=== PATIENT | female | born 1950 | race Caucasian/White ===

== ENCOUNTER 2017-02-15 10:45 | Inpatient (IN) | payer MEDICARE, OTHER ==
[2017-02-15] MEDS ORDERED: NALOXONE 0.4 MG/ML 1 ML VIAL IV STA (10:49)
[2017-02-15] MEDS ORDERED: SODIUM CHLORIDE 0.9% 1,000 ML IV ONE ×2 (10:49)
[2017-02-15 10:54] LABS: Glucose,Whole Blood 112 mg/dL (75-99)
[2017-02-15 11:08] LABS: Basophils % (A) 1 %; CH 31.7; CHCM 33.1; Eosinophils # (A) 0.1 k/uL (0-0.7); Eosinophils % (A) 1 %; HDW 2.38; HGB 15.5 gm/dL (11.4-16.0); Luc # (Auto) 0.06; Luc % (Auto) 1; Lymphocytes % (A) 13 %; MCH 32.3 pg (25.0-35.0); MCHC 33.7 g/dL (31.0-37.0); Mean Platelet Volume 9.1; Monocytes # (A) 0.3 k/uL (0-1.0); Monocytes % (A) 3 %; Neutrophils # (A) 6.2 k/uL (1.3-7.7); Neutrophils % (A) 82 %; RBC 4.79 m/uL (3.80-5.40); RDW 14.1 % (11.5-15.5); WBC 7.6 k/uL (3.8-10.6); WBC (Perox) 7.38
[2017-02-15 11:13] LABS: INR 1.1 (<1.2); Partial Thromboplastin Time 22.8 sec (22.0-30.0); Prothrombin Time 11.4 sec (9.0-12.0)
[2017-02-15 11:15] LABS: ALT 21 U/L (9-52); AST 15 U/L (14-36); Acetaminophen <10.0 ug/mL; Alcohol <10 mg/dL; Alkaline Phosphatase 76 U/L (38-126); Anion Gap 10 mmol/L; Blood Urea Nitrogen 17 mg/dL (7-17); Calcium 8.8 mg/dL (8.4-10.2); Carbon Dioxide 23 mmol/L (22-30); Chloride 107 mmol/L (98-107); Glucose 120 mg/dL (74-99); Magnesium 1.7 mg/dL (1.6-2.3); Non-African American GFR(MDRD) >60 (>60 ml/min/1.73 sqM); Phosphorous 3.5 mg/dL (2.5-4.5); Potassium 4.5 mmol/L (3.5-5.1); Salicylate <1.0 mg/dL; Sodium 140 mmol/L (137-145); Total Bilirubin 0.6 mg/dL (0.2-1.3); Total Protein 6.8 g/dL (6.3-8.2); VBG PH 7.35 (7.31-7.41)
[2017-02-15 11:25] LABS: Appearance,Urine Cloudy (Clear); Bacteria,Urine Occasional /hpf; Bilirubin,Urine Negative (Negative); Glucose,Urine (UA) Negative (Negative); Ketones,Urine 1+ (Negative); Leukocyte Esterase,Urine Large (Negative); Mucus,Urine Rare /hpf; Nitrite,Urine Positive (Negative); Particle Count 104466; Protein,Urine 1+ (Negative); RBC,Urine 2 /hpf (0-5); Specific Gravity,Urine 1.012 (1.001-1.035); UA Billing (MACRO vs. MICRO) MICRO; Urobilinogen,Urine <2.0 mg/dL (<2.0); WBC,Urine 111 /hpf (0-5)
--- NOTE | 2017-02-15 11:35 | CT ---
EXAMINATION TYPE: CT brain wo con DATE OF EXAM: 02/15/2017 COMPARISON: NONE HISTORY: Altered mental status CT DLP: 1145.1 mGycm Automated exposure control for dose reduction was used. FINDINGS: There are generalized changes of sulcal prominence and ventriculomegaly, compatible with mild atrophi c change. There is diffuse periventricular white matter lucency, compatible with chronic ischemic faye nge. There is a diffuse area lucency overlying the posterior parietal region on the left. I believe t his represents artifact. I could not exclude an evolving stroke. There is no mass effect, midline elba ft or intracranial blood identified. There is opacification of the right orbit. There is considerable mucoperiosteal thickening involving the nasal cavity and ethmoid sinuses. There is asymmetry in the parapharyngeal soft tissues with prominence on the left. The mastoid air cells a re clear. IMPRESSION: 1. LUCENCY OVER THE LEFT PARIETAL REGION IS BELIEVED TO REPRESENT ARTIFACT. I COULD NOT EXCLUDE A STR BATSHEVA IN PROGRESS. 2. CONSIDERABLE SOFT TISSUE DEBRIS WITHIN THE NASAL CAVITY AND ETHMOID SINUSES. THERE IS ASYMMETRY IN THE PARAPHARYNGEAL SOFT TISSUES ON THE LEFT. DIRECT VISUALIZATION WOULD BE SUGGESTED.
[2017-02-15] MEDS ORDERED: cefTRIAXone 2,000 MG in SODIUM CHLORIDE 0.9% 100 ML IVPB STA (11:42)
[2017-02-15] MEDS ORDERED: RX INFO: IV CONTRAST WAS GIVEN 1 EACH MISC MISCELLANE PRN (11:44)
[2017-02-15] MEDS ORDERED: hydrALAZINE HCL 20 MG/ML 1 ML VIAL IVP STA ×2 (11:44→14:20)
[2017-02-15] MEDS ORDERED: SODIUM CHLORIDE 0.9% 1,000 ML IV STA (11:44)
[2017-02-15 11:54] LABS: Creatine Kinase MB 0.6 ng/mL (0.0-2.4)
[2017-02-15] MEDS ORDERED: ENALAPRILAT 1.25 MG/ML 1 ML VIAL IVP STA (12:17)
[2017-02-15 12:18] LABS: Troponin I 0.065 ng/mL (0.000-0.034)
[2017-02-15] MEDS ORDERED: MORPHINE SULFATE 4 MG/ML SYRINGE IVP STA (12:36)
--- NOTE | 2017-02-15 12:56 | ED ---
General Adult HPI - General Chief complaint: Altered Mental Status Stated complaint: Bleeding, unresponsive Time Seen by Provider: 02/15/17 10:49 Source: EMS, RN notes reviewed, old records reviewed Mode of arrival: EMS Limitations: altered mental status - History of Present Illness Initial comments: This is a 58-year-old female to the ER for altered mental status. Patient was found by boyfriend today being unresponsive, EMS was called to patient's house, patient is unable to give history secondary to critical condition, history is obtained from EMS and the patient's chart. Patient and his boyfriend deny any drug or alcohol abuse. No known trauma history. The patient has been last seen yesterday before she went to bed. She is minimally arousable throughout the night and became unresponsive this morning - Related Data Home Medications Medication Instructions Recorded Confirmed Lisinopril 40 mg PO DAILY 06/06/14 02/15/17 HYDROcodone/APAP 7.5-325MG [[place] 1 tab PO Q6H PRN 04/27/15 02/15/17 7.5-325] Insulin Aspart Protam & Aspart 40 unit SQ BID 02/15/17 02/15/17 [Novolog Mix 70-30 Flexpen Syrn] Allergies Allergy/AdvReac Type Severity Reaction Status Date / Time No Known Allergies Allergy Verified 02/15/17 12:18 Review of Systems ROS Statement: Those systems with pertinent positive or pertinent negative responses have been documented in the HPI. ROS Other: All systems not noted in ROS Statement are negative. Past Medical History Past Medical History: Diabetes Mellitus, Deep Vein Thrombosis (DVT), Eye Disorder, Hyperlipidemia, Hypertension Additional Past Medical History / Comment(s): NT, EDEMA PAPO FEET. DIABETIC RETINOPATHY, osteomyelitis of the right calcaneus, Melendez grade 3 diabetic ulcer to the right heel, bilateral buttocks decubitus ulcers. History of Any Multi-Drug Resistant Organisms: None Reported Past Surgical History: Appendectomy, Back Surgery, Section, Cholecystectomy, Hernia Repair, Tubal Ligation Additional Past Surgical History / Comment(s): RT EYE SURG for diabetic retinopathy, lumbar fusion, PAPO FOOT SPUR SURG. Picc insertion. Past Anesthesia/Blood Transfusion Reactions: No Reported Reaction Past Psychological History: No Psychological Hx Reported Smoking Status: Former smoker Past Alcohol Use History: None Reported Past Drug Use History: None Reported - Past Family History Mother Family Medical History: Cancer, Diabetes Mellitus Additional Family Medical History / Comment(s): mother is . Father History Unknown: Yes Daughter(s) Family Medical History: Diabetes Mellitus General Exam Limitations: altered mental status General appearance: alert, obtunded, in distress Head exam: Present: atraumatic, normocephalic, normal inspection Eye exam: Present: normal appearance, PERRL, EOMI, other (Right eye dilated sluggishly reactive, left eye 4 mm). Absent: scleral icterus, conjunctival injection, periorbital swelling ENT exam: Present: normal exam, mucous membranes moist Neck exam: Present: normal inspection. Absent: tenderness, meningismus, lymphadenopathy Respiratory exam: Present: normal lung sounds bilaterally. Absent: respiratory distress, wheezes, rales, rhonchi, stridor Cardiovascular Exam: Present: regular rate, normal rhythm, normal heart sounds. Absent: systolic murmur, diastolic murmur, rubs, gallop, clicks GI/Abdominal exam: Present: soft, normal bowel sounds. Absent: distended, tenderness, guarding, rebound, rigid Extremities exam: Present: normal inspection, full ROM, normal capillary refill. Absent: tenderness, pedal edema, joint swelling, calf tenderness Back exam: Present: normal inspection Neurological exam: Present: alert, oriented X3, CN II-XII intact Psychiatric exam: Present: normal affect, normal mood Skin exam: Present: warm, dry, intact, normal color. Absent: rash Course Vital Signs 02/15/17 02/15/17 02/15/17 10:49 11:04 11:40 Temperature 97.9 F Pulse Rate 67 66 58 L Respiratory 14 16 15 Rate Blood Pressure 191/84 207/85 202/79 O2 Sat by Pulse 80 L 97 Oximetry 02/15/17 02/15/17 02/15/17 11:50 11:51 12:11 Temperature 97.9 F Pulse Rate 58 L 61 Respiratory 20 18 20 Rate Blood Pressure 204/84 212/78 O2 Sat by Pulse 97 100 Oximetry 02/15/17 02/15/17 02/15/17 12:31 12:59 13:31 Temperature 99.0 F 99.0 F Pulse Rate 85 64 75 Respiratory 26 H 20 18 Rate Blood Pressure 156/82 185/78 198/79 O2 Sat by Pulse 97 98 99 Oximetry 02/15/17 13:57 Temperature Pulse Rate 67 Respiratory 20 Rate Blood Pressure 198/76 O2 Sat by Pulse 98 Oximetry - Reevaluation(s) Reevaluation #1: 02/15/17 13:06 Blood pressure is difficult to control, 2 different IV medications medications used Reevaluation #2: 02/15/17 13:06 Patient has no response to Narcan Sugar normal Drug screen positive for opiates Reevaluation #3: 02/15/17 14:22 Patient initially hypoxic on the CT a chest is negative for PE Reevaluation #4: 02/15/17 14:22 Spoke with family at length greater than 50 minutes regarding medical condition , clinical condition and grave prognosis, questions answered EKG Findings - EKG Comments: EKG Findings:: EKG shows normal sinus rhythm at 62, PA 150, QRS 80, QTC 472 Medical Decision Making - Medical Decision Making 68. ER for evaluation of unresponsiveness altered mental status, patient found to have urinary tract infection likely CVA, will obtain MRI for validation. Patient will be admitted for neurological evaluation as well as monitoring of hemodynamic status, neurological improvement. - Lab Data Result diagrams: 02/15/17 10:50 02/15/17 10:50 Lab Results 02/15/17 02/15/17 02/15/17 Range/Units 10:50 10:50 10:50 WBC (3.8-10.6) k/uL RBC (3.80-5.40) m/uL Hgb (11.4-16.0) gm/dL Hct (34.0-46.0) % MCV (80.0-100.0) fL MCH (25.0-35.0) pg MCHC (31.0-37.0) g/dL RDW (11.5-15.5) % Plt Count (150-450) k/uL Neutrophils % % Lymphocytes % % Monocytes % % Eosinophils % % Basophils % % Neutrophils # (1.3-7.7) k/uL Lymphocytes # (1.0-4.8) k/uL Monocytes # (0-1.0) k/uL Eosinophils # (0-0.7) k/uL Basophils # (0-0.2) k/uL PT (9.0-12.0) sec INR (<1.2) APTT (22.0-30.0) sec VBG pH (7.31-7.41) VBG pCO2 (37-51) mmHg VBG HCO3 (24-28) mmol/L Sodium 140 (137-145) mmol/L Potassium 4.5 (3.5-5.1) mmol/L Chloride 107 (98-107) mmol/L Carbon Dioxide 23 (22-30) mmol/L Anion Gap 10 mmol/L BUN 17 (7-17) mg/dL Creatinine 0.78 (0.52-1.04) mg/dL Est GFR (MDRD) Af Amer >60 (>60 ml/min/1.73 sqM) Est GFR (MDRD) Non-Af >60 (>60 ml/min/1.73 sqM) Glucose 120 H (74-99) mg/dL POC Glucose (mg/dL) (75-99) mg/dL POC Glu Sail Cutter ID Calcium 8.8 (8.4-10.2) mg/dL Phosphorus 3.5 (2.5-4.5) mg/dL Magnesium 1.7 (1.6-2.3) mg/dL Total Bilirubin 0.6 (0.2-1.3) mg/dL AST 15 (14-36) U/L ALT 21 (9-52) U/L Alkaline Phosphatase 76 (38-126) U/L Ammonia <9 (<30) umol/L Total Creatine Kinase 49 (30-135) U/L CK-MB (CK-2) 0.6 (0.0-2.4) ng/mL CK-MB (CK-2) Rel Index 1.2 Troponin I 0.065 H* (0.000-0.034) ng/mL Total Protein 6.8 (6.3-8.2) g/dL Albumin 3.7 (3.5-5.0) g/dL Urine Color Urine Appearance (Clear) Urine pH (5.0-8.0) Ur Specific [place] (1.001-1.035) Urine Protein (Negative) Urine Glucose (UA) (Negative) Urine Ketones (Negative) Urine Blood (Negative) Urine Nitrite (Negative) Urine Bilirubin (Negative) Urine Urobilinogen (<2.0) mg/dL Ur Leukocyte Esterase (Negative) Urine RBC (0-5) /hpf Urine WBC (0-5) /hpf Urine Bacteria (None) /hpf Urine Mucus (None) /hpf Salicylates <1.0 mg/dL Urine Opiates Screen (NotDetected) Ur Oxycodone Screen (NotDetected) Urine Methadone Screen (NotDetected) Ur Propoxyphene Screen (NotDetected) Acetaminophen <10.0 ug/mL Ur Barbiturates Screen (NotDetected) U Tricyclic Antidepress (NotDetected) Ur Phencyclidine Scrn (NotDetected) Ur Amphetamines Screen (NotDetected) U Methamphetamines Scrn (NotDetected) U Benzodiazepines Scrn (NotDetected) Urine Cocaine Screen (NotDetected) U Marijuana (THC) Screen (NotDetected) Serum Alcohol <10 mg/dL 02/15/17 02/15/17 02/15/17 Range/Units 10:50 10:50 10:50 WBC 7.6 (3.8-10.6) k/uL RBC 4.79 (3.80-5.40) m/uL Hgb 15.5 (11.4-16.0) gm/dL Hct 46.0 (34.0-46.0) % MCV 96.0 (80.0-100.0) fL MCH 32.3 (25.0-35.0) pg MCHC 33.7 (31.0-37.0) g/dL RDW 14.1 (11.5-15.5) % Plt Count 128 L (150-450) k/uL Neutrophils % 82 % Lymphocytes % 13 % Monocytes % 3 % Eosinophils % 1 % Basophils % 1 % Neutrophils # 6.2 (1.3-7.7) k/uL Lymphocytes # 1.0 (1.0-4.8) k/uL Monocytes # 0.3 (0-1.0) k/uL Eosinophils # 0.1 (0-0.7) k/uL Basophils # 0.0 (0-0.2) k/uL PT 11.4 (9.0-12.0) sec INR 1.1 (<1.2) APTT 22.8 (22.0-30.0) sec VBG pH 7.35 (7.31-7.41) VBG pCO2 42 (37-51) mmHg VBG HCO3 23 L (24-28) mmol/L Sodium (137-145) mmol/L Potassium (3.5-5.1) mmol/L Chloride (98-107) mmol/L Carbon Dioxide (22-30) mmol/L Anion Gap mmol/L BUN (7-17) mg/dL Creatinine (0.52-1.04) mg/dL Est GFR (MDRD) Af Amer (>60 ml/min/1.73 sqM) Est GFR (MDRD) Non-Af (>60 ml/min/1.73 sqM) Glucose (74-99) mg/dL POC Glucose (mg/dL) (75-99) mg/dL POC Glu Sail Cutter ID Calcium (8.4-10.2) mg/dL Phosphorus (2.5-4.5) mg/dL Magnesium (1.6-2.3) mg/dL Total Bilirubin (0.2-1.3) mg/dL AST (14-36) U/L ALT (9-52) U/L Alkaline Phosphatase (38-126) U/L Ammonia (<30) umol/L Total Creatine Kinase (30-135) U/L CK-MB (CK-2) (0.0-2.4) ng/mL CK-MB (CK-2) Rel Index Troponin I (0.000-0.034) ng/mL Total Protein (6.3-8.2) g/dL Albumin (3.5-5.0) g/dL Urine Color Urine Appearance (Clear) Urine pH (5.0-8.0) Ur Specific [place] (1.001-1.035) Urine Protein (Negative) Urine Glucose (UA) (Negative) Urine Ketones (Negative) Urine Blood (Negative) Urine Nitrite (Negative) Urine Bilirubin (Negative) Urine Urobilinogen (<2.0) mg/dL Ur Leukocyte Esterase (Negative) Urine RBC (0-5) /hpf Urine WBC (0-5) /hpf Urine Bacteria (None) /hpf Urine Mucus (None) /hpf Salicylates mg/dL Urine Opiates Screen (NotDetected) Ur Oxycodone Screen (NotDetected) Urine Methadone Screen (NotDetected) Ur Propoxyphene Screen (NotDetected) Acetaminophen ug/mL Ur Barbiturates Screen (NotDetected) U Tricyclic Antidepress (NotDetected) Ur Phencyclidine Scrn (NotDetected) Ur Amphetamines Screen (NotDetected) U Methamphetamines Scrn (NotDetected) U Benzodiazepines Scrn (NotDetected) Urine Cocaine Screen (NotDetected) U Marijuana (THC) Screen (NotDetected) Serum Alcohol mg/dL 02/15/17 02/15/17 Range/Units 10:52 11:08 WBC (3.8-10.6) k/uL RBC (3.80-5.40) m/uL Hgb (11.4-16.0) gm/dL Hct (34.0-46.0) % MCV (80.0-100.0) fL MCH (25.0-35.0) pg MCHC (31.0-37.0) g/dL RDW (11.5-15.5) % Plt Count (150-450) k/uL Neutrophils % % Lymphocytes % % Monocytes % % Eosinophils % % Basophils % % Neutrophils # (1.3-7.7) k/uL Lymphocytes # (1.0-4.8) k/uL Monocytes # (0-1.0) k/uL Eosinophils # (0-0.7) k/uL Basophils # (0-0.2) k/uL PT (9.0-12.0) sec INR (<1.2) APTT (22.0-30.0) sec VBG pH (7.31-7.41) VBG pCO2 (37-51) mmHg VBG HCO3 (24-28) mmol/L Sodium (137-145) mmol/L Potassium (3.5-5.1) mmol/L Chloride (98-107) mmol/L Carbon Dioxide (22-30) mmol/L Anion Gap mmol/L BUN (7-17) mg/dL Creatinine (0.52-1.04) mg/dL Est GFR (MDRD) Af Amer (>60 ml/min/1.73 sqM) Est GFR (MDRD) Non-Af (>60 ml/min/1.73 sqM) Glucose (74-99) mg/dL POC Glucose (mg/dL) 112 H (75-99) mg/dL POC Glu Sail Cutter ID McDaid, Soni Calcium (8.4-10.2) mg/dL Phosphorus (2.5-4.5) mg/dL Magnesium (1.6-2.3) mg/dL Total Bilirubin (0.2-1.3) mg/dL AST (14-36) U/L ALT (9-52) U/L Alkaline Phosphatase (38-126) U/L Ammonia (<30) umol/L Total Creatine Kinase (30-135) U/L CK-MB (CK-2) (0.0-2.4) ng/mL CK-MB (CK-2) Rel Index Troponin I (0.000-0.034) ng/mL Total Protein (6.3-8.2) g/dL Albumin (3.5-5.0) g/dL Urine Color Light Yellow Urine Appearance Cloudy H (Clear) Urine pH 6.0 (5.0-8.0) Ur Specific [place] 1.012 (1.001-1.035) Urine Protein 1+ H (Negative) Urine Glucose (UA) Negative (Negative) Urine Ketones 1+ H (Negative) Urine Blood Trace H (Negative) Urine Nitrite Positive H (Negative) Urine Bilirubin Negative (Negative) Urine Urobilinogen <2.0 (<2.0) mg/dL Ur Leukocyte Esterase Large H (Negative) Urine RBC 2 (0-5) /hpf Urine WBC 111 H (0-5) /hpf Urine Bacteria Occasional H (None) /hpf Urine Mucus Rare H (None) /hpf Salicylates mg/dL Urine Opiates Screen Detected H (NotDetected) Ur Oxycodone Screen Not Detected (NotDetected) Urine Methadone Screen Not Detected (NotDetected) Ur Propoxyphene Screen Not Detected (NotDetected) Acetaminophen ug/mL Ur Barbiturates Screen Not Detected (NotDetected) U Tricyclic Antidepress Not Detected (NotDetected) Ur Phencyclidine Scrn Not Detected (NotDetected) Ur Amphetamines Screen Not Detected (NotDetected) U Methamphetamines Scrn Not Detected (NotDetected) U Benzodiazepines Scrn Not Detected (NotDetected) Urine Cocaine Screen Not Detected (NotDetected) U Marijuana (THC) Screen Not Detected (NotDetected) Serum Alcohol mg/dL - Radiology Data Radiology results: report reviewed (CT brain negative for acute disease, CT chest negative for PE), image reviewed Critical Care Time Critical Care Time: Yes Total Critical Care Time: 65 Disposition Clinical Impression: Altered mental status, CVA (cerebral vascular accident), UTI (urinary tract infection) Disposition: ADMITTED IP TO THIS HOSP Condition: Critical Referrals: Moe Mcleod MD [Primary Care Provider] - 1-2 days
[2017-02-15] MEDS ORDERED: NALOXONE 0.4 MG/ML 10 ML VIAL IVP STA (13:05)
--- NOTE | 2017-02-15 13:38 | CT ---
EXAMINATION TYPE: CT angio chest DATE OF EXAM: 02/15/2017 1:31 PM COMPARISON: Previous study dated 07/20/2015. HISTORY: Unresponsiveness CT DLP: 579.6 mGycm Automated exposure control for dose reduction was used. CONTRAST: CTA scan of the thorax is performed with IV Contrast, patient injected with 100 mL of Omnipaque 350, pulmonary embolism protocol. . FINDINGS: There is extensive breathing motion artifact on this study. There is diffuse groundglass op acity present in both lungs. There is no significant axillary, internal mammary, mediastinal or hilar adenopathy. There is an extremely poor contrast bolus. No large central pulmonary emboli are seen. The heart is enlarged. There is no pleural or pericardial fluid. Visualized portions of the upper abdomen are unremarkable. There is mild hypertrophic spondylosis in the spine IMPRESSION: 1. MARKEDLY SUBOPTIMAL EXAMINATION DEMONSTRATING NO LARGE, CENTRAL PULMONARY EMBOLI. 2. GROSS CARDIOMEGALY. 3. DIFFUSE GROUNDGLASS OPACITY THROUGHOUT THE LUNGS MAY REPRESENT PNEUMONITIS OR ALVEOLITIS.
[2017-02-15] MEDS ORDERED: NALOXONE 0.4 MG/ML 1 ML VIAL IV PRN (14:17)
--- NOTE | 2017-02-15 15:02 | XR ---
EXAMINATION TYPE: XR chest 1V DATE OF EXAM: 02/15/2017 CLINICAL HISTORY: Patient found unresponsive TECHNIQUE: Single frontal view of the chest is obtained. COMPARISON: 07/20/2015 FINDINGS: There is infiltrate within the right suprahilar region. There is a cardiomegaly with pulmon dinorah venous congestion. No pleural effusions are identified. Prominence of the mediastinum may be rela key to patient's supine positioning. IMPRESSION: 1. Right upper lobe infiltrate is difficult to exclude. Continued follow-up is advised.
--- NOTE | 2017-02-15 15:55 | P.CON ---
Consult Note - . Consult date: 02/15/17 Assessment/Plan:: Patient Name: Nola Escobar Date of : 1950 Patient Status: Inpatient Attending Provider: Moe Mcleod Date: 02/15/17 Critical care consult - General Chief complaint: Altered Mental Status Stated complaint: Difficulty in breathing, unresponsive Time Seen by Provider: 02/15/17 2:30 PM Source: EMS, ED notes, RN notes reviewed, old records reviewed Chief complaint : altered mental status - History of Present Illness Initial comments: This is a 58-year-old female to the ER for altered mental status. Patient was found by boyfriend today being unresponsive, EMS was called to patient's house, patient is unable to give history secondary to critical condition, history is obtained from EMS and the patient's chart. Patient and his boyfriend deny any drug or alcohol abuse. No known trauma history. The patient has been last seen yesterday before she went to bed. She is minimally arousable throughout the night and became unresponsive this morning then eventually brought into the emergency department she however is maintaining her airway and arterial blood gas has been reviewed hyperventilation oxygen is fairly adequate - Related Data Home Medications Medication Instructions Recorded Confirmed Lisinopril 40 mg PO DAILY 06/06/14 02/15/17 HYDROcodone/APAP 7.5-325MG [[place] 1 tab PO Q6H PRN 04/27/15 02/15/17 7.5-325] Insulin Aspart Protam & Aspart 40 unit SQ BID 02/15/17 02/15/17 [Novolog Mix 70-30 Flexpen Syrn] Allergies Allergy/AdvReac Type Severity Reaction Status Date / Time No Known Allergies Allergy Verified 02/15/17 12:18 Review of Systems ROS Statement: Those systems with pertinent positive or pertinent negative responses have been documented in the HPI. ROS Other: All systems not noted in ROS Statement are negative. Unable to obtain at length however given the poor mental status Past Medical History Past Medical History: Diabetes Mellitus, Deep Vein Thrombosis (DVT), Eye Disorder, Hyperlipidemia, Hypertension Additional Past Medical History / Comment(s): NT, EDEMA PAPO FEET. DIABETIC RETINOPATHY, osteomyelitis of the right calcaneus, Melendez grade 3 diabetic ulcer to the right heel, bilateral buttocks decubitus ulcers. History of Any Multi-Drug Resistant Organisms: None Reported Past Surgical History: Appendectomy, Back Surgery, Section, Cholecystectomy, Hernia Repair, Tubal Ligation Additional Past Surgical History / Comment(s): RT EYE SURG for diabetic retinopathy, lumbar fusion, PAPO FOOT SPUR SURG. Picc insertion. Past Anesthesia/Blood Transfusion Reactions: No Reported Reaction Past Psychological History: No Psychological Hx Reported Smoking Status: Former smoker Past Alcohol Use History: None Reported Past Drug Use History: None Reported - Past Family History Mother Family Medical History: Cancer, Diabetes Mellitus Additional Family Medical History / Comment(s): mother is . Father History Unknown: Yes Daughter(s) Family Medical History: Diabetes Mellitus General Exam Limitations: altered mental status General appearance: alert, obtunded, in distress, severe morbidly obese female Head exam: Present: atraumatic, normocephalic, normal inspection Eye exam: Present: normal appearance, PERRL, EOMI, other (Right eye dilated sluggishly reactive, left eye 4 mm). Absent: scleral icterus, conjunctival injection, periorbital swelling ENT exam: Present: normal exam, mucous membranes moist very narrow pharynx is present with enlarged tongue Neck exam: Present: normal inspection. Absent: tenderness, meningismus, lymphadenopathy Respiratory exam: Present: normal lung sounds bilaterally. Absent: respiratory distress, wheezes, rales, rhonchi, stridor Cardiovascular Exam: Present: regular rate, normal rhythm, normal heart sounds. Absent: systolic murmur, diastolic murmur, rubs, gallop, clicks GI/Abdominal exam: Present: soft, normal bowel sounds. Absent: distended, tenderness, guarding, rebound, rigid Extremities exam: Present: normal inspection, full ROM, normal capillary refill. Absent: tenderness, pedal edema, joint swelling, calf tenderness Back exam: Present: normal inspection Neurological exam: Present: alert, oriented X3, CN II-XII intact Psychiatric exam: Present: normal affect, normal mood Skin exam: Present: warm, dry, intact, normal color. Absent: rash Course Vital Signs 02/15/17 02/15/17 02/15/17 10:49 11:04 11:40 Temperature 97.9 F Pulse Rate 67 66 58 L Respiratory 14 16 15 Rate Blood Pressure 191/84 207/85 202/79 O2 Sat by Pulse 80 L 97 Oximetry 07/26/17 07/26/17 07/26/17 11:50 11:51 12:11 Temperature 97.9 F Pulse Rate 58 L 61 Respiratory 20 18 20 Rate Blood Pressure 204/84 212/78 O2 Sat by Pulse 97 100 Oximetry 02/15/17 02/15/17 02/15/17 12:31 12:59 13:31 Temperature 99.0 F 99.0 F Pulse Rate 85 64 75 Respiratory 26 H 20 18 Rate Blood Pressure 156/82 185/78 198/79 O2 Sat by Pulse 97 98 99 Oximetry 02/15/17 13:57 Temperature Pulse Rate 67 Respiratory 20 Rate Blood Pressure 198/76 O2 Sat by Pulse 98 Oximetry EKG Findings:: EKG shows normal sinus rhythm at 62, MN 150, QRS 80, QTC 472 02/15/17 10:50 Lab Results 02/15/17 02/15/17 02/15/17 Range/Units 10:50 10:50 10:50 WBC (3.8-10.6) k/uL RBC (3.80-5.40) m/uL Hgb (11.4-16.0) gm/dL Hct (34.0-46.0) % MCV (80.0-100.0) fL MCH (25.0-35.0) pg MCHC (31.0-37.0) g/dL RDW (11.5-15.5) % Plt Count (150-450) k/uL Neutrophils % % Lymphocytes % % Monocytes % % Eosinophils % % Basophils % % Neutrophils # (1.3-7.7) k/uL Lymphocytes # (1.0-4.8) k/uL Monocytes # (0-1.0) k/uL Eosinophils # (0-0.7) k/uL Basophils # (0-0.2) k/uL PT (9.0-12.0) sec INR (<1.2) APTT (22.0-30.0) sec VBG pH (7.31-7.41) VBG pCO2 (37-51) mmHg VBG HCO3 (24-28) mmol/L Sodium 140 (137-145) mmol/L Potassium 4.5 (3.5-5.1) mmol/L Chloride 107 (98-107) mmol/L Carbon Dioxide 23 (22-30) mmol/L Anion Gap 10 mmol/L BUN 17 (7-17) mg/dL Creatinine 0.78 (0.52-1.04) mg/dL Est GFR (MDRD) Af Amer >60 (>60 ml/min/1.73 sqM) Est GFR (MDRD) Non-Af >60 (>60 ml/min/1.73 sqM) Glucose 120 H (74-99) mg/dL POC Glucose (mg/dL) (75-99) mg/dL POC Glu Yard Switch Operator ID Calcium 8.8 (8.4-10.2) mg/dL Phosphorus 3.5 (2.5-4.5) mg/dL Magnesium 1.7 (1.6-2.3) mg/dL Total Bilirubin 0.6 (0.2-1.3) mg/dL AST 15 (14-36) U/L ALT 21 (9-52) U/L Alkaline Phosphatase 76 (38-126) U/L Ammonia <9 (<30) umol/L Total Creatine Kinase 49 (30-135) U/L CK-MB (CK-2) 0.6 (0.0-2.4) ng/mL CK-MB (CK-2) Rel Index 1.2 Troponin I 0.065 H* (0.000-0.034) ng/mL Total Protein 6.8 (6.3-8.2) g/dL Albumin 3.7 (3.5-5.0) g/dL Urine Color Urine Appearance (Clear) Urine pH (5.0-8.0) Ur Specific [place] (1.001-1.035) Urine Protein (Negative) Urine Glucose (UA) (Negative) Urine Ketones (Negative) Urine Blood (Negative) Urine Nitrite (Negative) Urine Bilirubin (Negative) Urine Urobilinogen (<2.0) mg/dL Ur Leukocyte Esterase (Negative) Urine RBC (0-5) /hpf Urine WBC (0-5) /hpf Urine Bacteria (None) /hpf Urine Mucus (None) /hpf Salicylates <1.0 mg/dL Urine Opiates Screen (NotDetected) Ur Oxycodone Screen (NotDetected) Urine Methadone Screen (NotDetected) Ur Propoxyphene Screen (NotDetected) Acetaminophen <10.0 ug/mL Ur Barbiturates Screen (NotDetected) U Tricyclic Antidepress (NotDetected) Ur Phencyclidine Scrn (NotDetected) Ur Amphetamines Screen (NotDetected) U Methamphetamines Scrn (NotDetected) U Benzodiazepines Scrn (NotDetected) Urine Cocaine Screen (NotDetected) U Marijuana (THC) Screen (NotDetected) Serum Alcohol <10 mg/dL 02/15/17 02/15/17 02/15/17 Range/Units 10:50 10:50 10:50 WBC 7.6 (3.8-10.6) k/uL RBC 4.79 (3.80-5.40) m/uL Hgb 15.5 (11.4-16.0) gm/dL Hct 46.0 (34.0-46.0) % MCV 96.0 (80.0-100.0) fL MCH 32.3 (25.0-35.0) pg MCHC 33.7 (31.0-37.0) g/dL RDW 14.1 (11.5-15.5) % Plt Count 128 L (150-450) k/uL Neutrophils % 82 % Lymphocytes % 13 % Monocytes % 3 % Eosinophils % 1 % Basophils % 1 % Neutrophils # 6.2 (1.3-7.7) k/uL Lymphocytes # 1.0 (1.0-4.8) k/uL Monocytes # 0.3 (0-1.0) k/uL Eosinophils # 0.1 (0-0.7) k/uL Basophils # 0.0 (0-0.2) k/uL PT 11.4 (9.0-12.0) sec INR 1.1 (<1.2) APTT 22.8 (22.0-30.0) sec VBG pH 7.35 (7.31-7.41) VBG pCO2 42 (37-51) mmHg VBG HCO3 23 L (24-28) mmol/L Sodium (137-145) mmol/L Potassium (3.5-5.1) mmol/L Chloride (98-107) mmol/L Carbon Dioxide (22-30) mmol/L Anion Gap mmol/L BUN (7-17) mg/dL Creatinine (0.52-1.04) mg/dL Est GFR (MDRD) Af Amer (>60 ml/min/1.73 sqM) Est GFR (MDRD) Non-Af (>60 ml/min/1.73 sqM) Glucose (74-99) mg/dL POC Glucose (mg/dL) (75-99) mg/dL POC Glu Yard Switch Operator ID Calcium (8.4-10.2) mg/dL Phosphorus (2.5-4.5) mg/dL Magnesium (1.6-2.3) mg/dL Total Bilirubin (0.2-1.3) mg/dL AST (14-36) U/L ALT (9-52) U/L Alkaline Phosphatase (38-126) U/L Ammonia (<30) umol/L Total Creatine Kinase (30-135) U/L CK-MB (CK-2) (0.0-2.4) ng/mL CK-MB (CK-2) Rel Index Troponin I (0.000-0.034) ng/mL Total Protein (6.3-8.2) g/dL Albumin (3.5-5.0) g/dL Urine Color Urine Appearance (Clear) Urine pH (5.0-8.0) Ur Specific [place] (1.001-1.035) Urine Protein (Negative) Urine Glucose (UA) (Negative) Urine Ketones (Negative) Urine Blood (Negative) Urine Nitrite (Negative) Urine Bilirubin (Negative) Urine Urobilinogen (<2.0) mg/dL Ur Leukocyte Esterase (Negative) Urine RBC (0-5) /hpf Urine WBC (0-5) /hpf Urine Bacteria (None) /hpf Urine Mucus (None) /hpf Salicylates mg/dL Urine Opiates Screen (NotDetected) Ur Oxycodone Screen (NotDetected) Urine Methadone Screen (NotDetected) Ur Propoxyphene Screen (NotDetected) Acetaminophen ug/mL Ur Barbiturates Screen (NotDetected) U Tricyclic Antidepress (NotDetected) Ur Phencyclidine Scrn (NotDetected) Ur Amphetamines Screen (NotDetected) U Methamphetamines Scrn (NotDetected) U Benzodiazepines Scrn (NotDetected) Urine Cocaine Screen (NotDetected) U Marijuana (THC) Screen (NotDetected) Serum Alcohol mg/dL 02/15/17 02/15/17 Range/Units 10:52 11:08 WBC (3.8-10.6) k/uL RBC (3.80-5.40) m/uL Hgb (11.4-16.0) gm/dL Hct (34.0-46.0) % MCV (80.0-100.0) fL MCH (25.0-35.0) pg MCHC (31.0-37.0) g/dL RDW (11.5-15.5) % Plt Count (150-450) k/uL Neutrophils % % Lymphocytes % % Monocytes % % Eosinophils % % Basophils % % Neutrophils # (1.3-7.7) k/uL Lymphocytes # (1.0-4.8) k/uL Monocytes # (0-1.0) k/uL Eosinophils # (0-0.7) k/uL Basophils # (0-0.2) k/uL PT (9.0-12.0) sec INR (<1.2) APTT (22.0-30.0) sec VBG pH (7.31-7.41) VBG pCO2 (37-51) mmHg VBG HCO3 (24-28) mmol/L Sodium (137-145) mmol/L Potassium (3.5-5.1) mmol/L Chloride (98-107) mmol/L Carbon Dioxide (22-30) mmol/L Anion Gap mmol/L BUN (7-17) mg/dL Creatinine (0.52-1.04) mg/dL Est GFR (MDRD) Af Amer (>60 ml/min/1.73 sqM) Est GFR (MDRD) Non-Af (>60 ml/min/1.73 sqM) Glucose (74-99) mg/dL POC Glucose (mg/dL) 112 H (75-99) mg/dL POC Glu Yard Switch Operator ID McDaid, Soni Calcium (8.4-10.2) mg/dL Phosphorus (2.5-4.5) mg/dL Magnesium (1.6-2.3) mg/dL Total Bilirubin (0.2-1.3) mg/dL AST (14-36) U/L ALT (9-52) U/L Alkaline Phosphatase (38-126) U/L Ammonia (<30) umol/L Total Creatine Kinase (30-135) U/L CK-MB (CK-2) (0.0-2.4) ng/mL CK-MB (CK-2) Rel Index Troponin I (0.000-0.034) ng/mL Total Protein (6.3-8.2) g/dL Albumin (3.5-5.0) g/dL Urine Color Light Yellow Urine Appearance Cloudy H (Clear) Urine pH 6.0 (5.0-8.0) Ur Specific [place] 1.012 (1.001-1.035) Urine Protein 1+ H (Negative) Urine Glucose (UA) Negative (Negative) Urine Ketones 1+ H (Negative) Urine Blood Trace H (Negative) Urine Nitrite Positive H (Negative) Urine Bilirubin Negative (Negative) Urine Urobilinogen <2.0 (<2.0) mg/dL Ur Leukocyte Esterase Large H (Negative) Urine RBC 2 (0-5) /hpf Urine WBC 111 H (0-5) /hpf Urine Bacteria Occasional H (None) /hpf Urine Mucus Rare H (None) /hpf Salicylates mg/dL Urine Opiates Screen Detected H (NotDetected) Ur Oxycodone Screen Not Detected (NotDetected) Urine Methadone Screen Not Detected (NotDetected) Ur Propoxyphene Screen Not Detected (NotDetected) Acetaminophen ug/mL Ur Barbiturates Screen Not Detected (NotDetected) U Tricyclic Antidepress Not Detected (NotDetected) Ur Phencyclidine Scrn Not Detected (NotDetected) Ur Amphetamines Screen Not Detected (NotDetected) U Methamphetamines Scrn Not Detected (NotDetected) U Benzodiazepines Scrn Not Detected (NotDetected) Urine Cocaine Screen Not Detected (NotDetected) U Marijuana (THC) Screen Not Detected (NotDetected) Serum Alcohol mg/dL Chest x-ray are performed 02/15/17 revealed right upper lobe infiltrate likely pneumonia related to aspiration Computed tomography scan of the chest suboptimal study overall but however no central large pulmonary embolism seen cardiomegaly is identified as growing groundglass opacities opacities seen bilaterally likely reflecting pneumonitis alveolitis Computed tomography scan of the head revealed some left parietal area lucencies seen, left-sided L parietal stroke cannot be excluded Impression altered mental status/comatose status with a differential diagnosis of acute CVA involving left parietal area Uncontrolled malignant hypertension with the early congestive heart failure and interstitial edema, suspect acute and chronic systolic heart failure Need to exclude other etiologies like myxedema coma, will order appropriate labs Elevated troponin may very well be due to non-ST segment elevated ID Overall plan is to monitor observation closely in ICU will do neuro checks consult neurology and cardiology, will check thyroid function testing in order echocardiogram and cardiac enzymes will be ordered to continue to gently rehydrate the patient keep patient nothing by mouth view of the arterial blood gas and noted and revealed that patient is spontaneously breathing and able to maintain her airway patient will be placed on DVT and peptic ulcer disease prophylaxis, will be placed on beta blockers, will follow clinical course closely
--- NOTE | 2017-02-15 16:03 | P.EN ---
Additional problem noted R right upper lobe aspiration pneumonia him a urinary tract infection and early sepsis associated with both lead to be present patient is being started on IV Rocephin as well
[2017-02-15 16:51] LABS: ABG Base Excess -3.9 mmol/L; ABG HCO3 19 mmol/L (21-25); ABG PCO2 27 mmHg (35-45); ABG PH 7.47 (7.35-7.45); ABG PO2 134 mmHg (83-108); ABG TCO2 20 mmol/L (19-24)
[2017-02-15] MEDS: NITROGLYCERIN OINT 1 INCH/GM PACKET TOPICAL SCH (18:14)
[2017-02-15] MEDS: SODIUM CHLORIDE 0.9% 1,000 ML IV SCH (18:16)
[2017-02-15 18:19] LABS: Glucose,Whole Blood 162 mg/dL (75-99)
[2017-02-15] MEDS: hydrALAZINE HCL 20 MG/ML 1 ML VIAL IVP PRN (18:39)
[2017-02-15 19:09] LABS: Troponin I 0.053 ng/mL (0.000-0.034)
[2017-02-15 19:34] VITALS: BMI 44.7
[2017-02-15 21:12] LABS: Glucose,Whole Blood 166 mg/dL (75-99)
[2017-02-15] MEDS: INSULIN LISPRO (humaLOG) 300 UNIT/3 ML VIAL SQ SCH (21:49)
--- NOTE | 2017-02-15 22:12 | P.CNNES ---
History of Present Illness Consult date: 02/15/17 Reason for Consult: Patient admitted with unresponsive state and altered mental status. History of Present Illness: This patient is a 66-year-old female who was brought into the emergency room at [facility] as she was found to be unresponsive at home. Patient was quite obtunded when she was seen in the ER by Dr. Ring. She was sent for a computed tomography scan of the brain which revealed lucency over the left parietal region believe to represent artifact. Differential also included possibility of stroke. Patient was transferred to the intensive care unit. She still remains very much obtunded. She has not been able to answer any questions. She opens her eyes very minimally. She is moving all 4 extremities. Apparently she has no previous history of TIA or stroke. She does have underlying diabetes mellitus as well as history of DVT in the past. She was admitted into the intensive care unit where she remains obtunded. Patient's blood pressure has remained relatively stable. Her initial evaluation in the ER by Dr. Ring revealed her NIH stroke scale to be 25.0. She was not felt to be any candidate for intervention as her onset of symptoms was well past the three-hour window. The patient remains very much agitated in the ICU. She does not follow any commands. She was evaluated for pulmonary embolus with a CTA of the chest which came back negative for PE. Neurology is now been consulted for further evaluation and recommendations. Review of Systems Constitutional: Denies chills, Denies fever Eyes: denies blurred vision, denies pain Ears, nose, mouth and throat: Denies headache, Denies sore throat Cardiovascular: Denies chest pain, Denies shortness of breath Respiratory: Denies cough Gastrointestinal: Denies abdominal pain, Denies diarrhea, Denies nausea, Denies vomiting Genitourinary: Denies dysuria, Denies hematuria Musculoskeletal: Denies myalgias Integumentary: Denies pruritus, Denies rash Neurological: Reports change in mentation, Reports change in speech, Reports confusion, Reports motor disturbance, Reports weakness Psychiatric: Denies anxiety, Denies depression Endocrine: Denies fatigue, Denies weight change Past Medical History Past Medical History: Diabetes Mellitus, Deep Vein Thrombosis (DVT), Eye Disorder, Hyperlipidemia, Hypertension Additional Past Medical History / Comment(s): NT, EDEMA PAPO FEET. DIABETIC RETINOPATHY, osteomyelitis of the right calcaneus, Melendez grade 3 diabetic ulcer to the right heel, bilateral buttocks decubitus ulcers. History of Any Multi-Drug Resistant Organisms: None Reported Past Surgical History: Appendectomy, Back Surgery, Section, Cholecystectomy, Hernia Repair, Tubal Ligation Additional Past Surgical History / Comment(s): RT EYE SURG for diabetic retinopathy, lumbar fusion, PAPO FOOT SPUR SURG. Picc insertion. Past Anesthesia/Blood Transfusion Reactions: No Reported Reaction Past Psychological History: No Psychological Hx Reported Smoking Status: Current every day smoker Past Alcohol Use History: None Reported Additional Past Alcohol Use History / Comment(s): Patient was a smoker of half a pack of cigarettes per day for 27 years and quit when she was 43 years of age. She denies any medical marijuana, marijuana, street drug or alcohol use. 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 She does have a dog in the home and lives with her boyfriend. She denies any recent travel. Past Drug Use History: None Reported - Past Family History Mother Family Medical History: Cancer, Diabetes Mellitus Additional Family Medical History / Comment(s): mother is . Father History Unknown: Yes Daughter(s) Family Medical History: Diabetes Mellitus Medications and Allergies Home Medications Medication Instructions Recorded Confirmed Type Lisinopril 40 mg PO DAILY 06/06/14 02/15/17 History HYDROcodone/APAP 7.5-325MG [[place] 1 tab PO Q6H PRN 04/27/15 02/15/17 History 7.5-325] Insulin Aspart Protam & Aspart 40 unit SQ BID 02/15/17 02/15/17 History [Novolog Mix 70-30 Flexpen Syrn] Allergies Allergy/AdvReac Type Severity Reaction Status Date / Time No Known Allergies Allergy Verified 02/15/17 12:18 Physical Examination - Vital Signs Vital Signs: Vital Signs Temp Pulse Resp BP Pulse Ox 02/15/17 21:30 76 15 170/63 99 02/15/17 21:20 81 17 170/63 100 02/15/17 21:10 75 15 165/73 99 02/15/17 21:00 72 17 165/73 99 02/15/17 20:50 73 16 165/73 99 02/15/17 20:40 72 20 132/78 02/15/17 20:30 76 21 132/78 02/15/17 20:20 86 20 132/78 93 L 02/15/17 20:10 77 20 159/69 100 02/15/17 20:00 72 18 159/69 100 02/15/17 19:50 78 18 159/69 100 02/15/17 19:40 71 19 145/55 02/15/17 19:30 97.8 F 73 21 145/55 99 02/15/17 19:20 71 21 175/69 99 02/15/17 19:15 100 02/15/17 19:10 70 21 175/69 100 02/15/17 18:15 58 L 187/86 02/15/17 17:57 2 L 02/15/17 17:08 57 L 16 215/86 100 02/15/17 15:18 59 L 16 190/95 96 02/15/17 14:27 69 20 193/81 99 02/15/17 13:57 67 20 198/76 98 02/15/17 13:31 99.0 F 75 18 198/79 99 02/15/17 12:59 99.0 F 64 20 185/78 98 02/15/17 12:31 85 26 H 156/82 97 02/15/17 12:11 61 20 212/78 100 02/15/17 11:51 97.9 F 58 L 18 204/84 97 02/15/17 11:50 20 02/15/17 11:40 58 L 15 202/79 97 02/15/17 11:04 66 16 207/85 02/15/17 10:49 97.9 F 67 14 191/84 80 L Intake and Output 02/15/17 02/15/17 02/15/17 06:59 14:59 22:59 Intake Total 100 Output Total 600 500 Balance -600 -400 Intake: IV 100 Sodium Chloride 0.9% 1, 100 000 ml @ 100 mls/hr IV . Q10H [facility] Rx#:[id number] Output: Urine 600 500 Uretheral ([place]stein) 200 Other: Weight 125 kg 122 kg Patient Weight 02/16/17 06:59 Weight 122 kg - Constitutional General appearance: average body habitus, cooperative - EENT EENT: PERRL, mucous membranes moist - Respiratory Respiratory: lungs clear, normal breath sounds - Cardiovascular Cardiovascular: regular rate, normal S1, normal S2 Extremities: no peripheral edema bilaterally - Gastrointestinal Gastrointestinal: normoactive bowel sounds - Integumentary Integumentary: normal - Neurologic Cranial nerve examination: PERRL, EOMI, VFF, V1/V2/V3 grossly intact, face symmetric, tongue midline, intact gag reflex, intact corneal reflex, normal palatal elevation Speech examination: intact Sensorimotor examination: intact Motor examination - right side: 3/5: biceps, triceps, wrist flexion, wrist extension, supervisor cigar processing, hip flexors, knee extensors, dorsiflexion, toe extension (EHL) , plantarflexion Motor examination - left side: 3/5: biceps, triceps, wrist flexion, wrist extension, supervisor cigar processing, hip flexors, knee extensors, dorsiflexion, toe extension (EHL) , plantarflexion Detailed sensory examination: intact Reflex and gait examination: intact Reflexes: 1+: ankle, bicep, knee, tricep - Musculoskeletal Musculoskeletal: no pain - Psychiatric Psychiatric: agitated Results - Laboratory Findings CBC and BMP: 02/15/17 10:50 02/15/17 10:50 Abnormal Lab Findings: Abnormal Labs 02/15/17 02/15/17 02/15/17 10:50 10:50 10:50 Plt Count 128 L ABG pH ABG pCO2 ABG pO2 ABG HCO3 ABG O2 Saturation VBG HCO3 Glucose 120 H POC Glucose (mg/dL) Troponin I 0.065 H* Free T3 pg/mL Urine Appearance Urine Protein Urine Ketones Urine Blood Urine Nitrite Ur Leukocyte Esterase Urine WBC Urine Bacteria Urine Mucus Urine Opiates Screen 02/15/17 02/15/17 02/15/17 10:50 10:50 10:52 Plt Count ABG pH ABG pCO2 ABG pO2 ABG HCO3 ABG O2 Saturation VBG HCO3 23 L Glucose POC Glucose (mg/dL) 112 H Troponin I Free T3 pg/mL 2.3 L Urine Appearance Urine Protein Urine Ketones Urine Blood Urine Nitrite Ur Leukocyte Esterase Urine WBC Urine Bacteria Urine Mucus Urine Opiates Screen 02/15/17 02/15/17 02/15/17 11:08 14:50 18:17 Plt Count ABG pH 7.47 H ABG pCO2 27 L ABG pO2 134 H ABG HCO3 19 L ABG O2 Saturation 99.0 H VBG HCO3 Glucose POC Glucose (mg/dL) 162 H Troponin I Free T3 pg/mL Urine Appearance Cloudy H Urine Protein 1+ H Urine Ketones 1+ H Urine Blood Trace H Urine Nitrite Positive H Ur Leukocyte Esterase Large H Urine WBC 111 H Urine Bacteria Occasional H Urine Mucus Rare H Urine Opiates Screen Detected H 02/15/17 02/15/17 18:25 21:09 Plt Count ABG pH ABG pCO2 ABG pO2 ABG HCO3 ABG O2 Saturation VBG HCO3 Glucose POC Glucose (mg/dL) 166 H Troponin I 0.053 H* Free T3 pg/mL Urine Appearance Urine Protein Urine Ketones Urine Blood Urine Nitrite Ur Leukocyte Esterase Urine WBC Urine Bacteria Urine Mucus Urine Opiates Screen Assessment and Plan (1) Acute ischemic left MCA stroke Status: Acute Code(s): I63.512 - CEREB INFRC D/T UNSP OCCLS OR STENOS OF LEFT MID CEREB ART (2) Acute encephalopathy Status: Acute Code(s): G93.40 - ENCEPHALOPATHY, UNSPECIFIED (3) UTI (urinary tract infection) Status: Acute Code(s): N39.0 - URINARY TRACT INFECTION, SITE NOT SPECIFIED (4) Cellulitis Status: Acute Code(s): L03.90 - CELLULITIS, UNSPECIFIED (5) Diabetes Status: Acute Code(s): E11.9 - TYPE 2 DIABETES MELLITUS WITHOUT COMPLICATIONS Plan: This patient is a 66-year-old female admitted to the intensive care unit after being found unresponsive at home. She underwent a computed tomography scan of the brain which revealed vague lucency in the left parietal lobe. Stroke could not be excluded. Patient remains obtunded in the ICU. She does not follow commands. She has had no verbal output as per the ICU nursing staff. We have recommended a complete stroke evaluation with the patient. Overall prognosis at this time remains very guarded. Time with Patient: Greater than 30
[2017-02-16 00:56] LABS: Creatine Kinase MB 1.6 ng/mL (0.0-2.4)
[2017-02-16] MEDS: INSULIN LISPRO (humaLOG) 300 UNIT/3 ML VIAL SQ SCH ×6 (00:56→20:27)
[2017-02-16 00:58] LABS: Glucose,Whole Blood 160 mg/dL (75-99)
[2017-02-16] MEDS: NITROGLYCERIN OINT 1 INCH/GM PACKET TOPICAL SCH ×3 (00:58→17:21)
[2017-02-16 00:59] LABS: Troponin I 0.061 ng/mL (0.000-0.034)
[2017-02-16] MEDS: SODIUM CHLORIDE 0.9% 1,000 ML IV SCH ×2 (01:00→11:24)
[2017-02-16 03:21] LABS: Glucose,Whole Blood 125 mg/dL (75-99)
[2017-02-16 05:25] LABS: Basophils # (A) 0.1 k/uL (0-0.2); Basophils % (A) 1 %; CH 31.7; CHCM 32.4; Eosinophils # (A) 0.1 k/uL (0-0.7); Eosinophils % (A) 1 %; HCT 46.6 % (34.0-46.0); HDW 2.33; HGB 15.3 gm/dL (11.4-16.0); Luc # (Auto) 0.19; Luc % (Auto) 2; Lymphocytes # (A) 1.2 k/uL (1.0-4.8); Lymphocytes % (A) 12 %; MCH 32.1 pg (25.0-35.0); MCHC 32.7 g/dL (31.0-37.0); MCV 98.1 fL (80.0-100.0); Mean Platelet Volume 8.8; Monocytes # (A) 0.7 k/uL (0-1.0); Monocytes % (A) 7 %; Neutrophils # (A) 7.2 k/uL (1.3-7.7); Neutrophils % (A) 77 %; RBC 4.75 m/uL (3.80-5.40); RDW 14.4 % (11.5-15.5); WBC 9.4 k/uL (3.8-10.6); WBC (Perox) 9.52
[2017-02-16 05:28] LABS: INR 1.3 (<1.2); Prothrombin Time 12.8 sec (9.0-12.0)
[2017-02-16 05:43] LABS: ALT 28 U/L (9-52); AST 23 U/L (14-36); Alkaline Phosphatase 74 U/L (38-126); Anion Gap 13 mmol/L; Blood Urea Nitrogen 13 mg/dL (7-17); Calcium 8.9 mg/dL (8.4-10.2); Carbon Dioxide 21 mmol/L (22-30); Chloride 109 mmol/L (98-107); Glucose 121 mg/dL (74-99); Magnesium 1.8 mg/dL (1.6-2.3); Non-African American GFR(MDRD) >60 (>60 ml/min/1.73 sqM); Phosphorous 2.6 mg/dL (2.5-4.5); Potassium 4.1 mmol/L (3.5-5.1); Sodium 143 mmol/L (137-145); Total Bilirubin 0.9 mg/dL (0.2-1.3); Total Protein 6.6 g/dL (6.3-8.2)
[2017-02-16 08:17] LABS: Glucose,Whole Blood 131 mg/dL (75-99)
--- NOTE | 2017-02-16 08:45 | XR ---
EXAMINATION TYPE: XR chest 1V portable DATE OF EXAM: 02/16/2017 COMPARISON: Prior chest x-ray 02/15/2017 HISTORY: Aspiration TECHNIQUE: Single frontal view of the chest is obtained. FINDINGS: There is some improvement in the interstitium and central vascularity as compared to prior exam. NG tube is in place, distal tip is not included on the exam. No evident pneumothorax or pleura l effusion. Heart remains enlarged. IMPRESSION: Suspect some improvement in patient's volume status.
[2017-02-16] MEDS: ENOXAPARIN 40 MG/0.4 ML SYRINGE SQ SCH (09:10)
[2017-02-16] MEDS: ESOMEPRAZOLE 20 MG in SODIUM CHLORIDE 0.9% 50 ML IVPB SCH (09:10)
[2017-02-16] MEDS: hydrALAZINE HCL 20 MG/ML 1 ML VIAL IVP PRN ×2 (09:12→18:55)
--- NOTE | 2017-02-16 10:02 | ECHOF ---
Referral Reason:decreased LOC MEASUREMENTS -------- HEIGHT: 165.1 cm WEIGHT: 124.7 kg BP: 190/95 RVIDd: 2.2 cm (< 3.3) IVSd: 1.5 cm (0.6 - 1.1) LVIDd: 5.5 cm (3.9 - 5.3) LVPWd: 1.4 cm (0.6 - 1.1) IVSs: 1.9 cm LVIDs: 4.2 cm LVPWs: 1.8 cm LAESV Index (A-L): 33.59 ml/m MV E Doug: 1.15 m/s MV DecT: 317 ms MV A Doug: 0.86 m/s MV E/A Ratio: 1.35 RAP: 5.00 mmHg RVSP: 10.99 mmHg FINDINGS -------- Sinus rhythm. This was a technically difficult study with suboptimal views. Pt. is combative Pt. not compliant. There is moderate concentric left ventricular hypertrophy. Overall left ventricular systolic function is normal with, an EF between 55 - 60 %. The right ventricle is normal in size and function. LA is midly dilated 29-33ml/m2. The right atrium is normal in size. Aortic valve is trileaflet and is mildly thickened. There is no evidence of aortic regurgitation. There is no evidence of aortic stenosis. The mitral valve leaflets are mildly thickened. Mild mitral annular calcification present. There is trace to mild mitral regurgitation. Trace tricuspid regurgitation present. There is no evidence of pulmonary hypertension. The right ventricular systolic pressure, as measured by Doppler, is 10.99mmHg. The pulmonic valve was not well visualized. The aortic root size is normal. Normal inferior vena cava with normal inspiratory collapse consistent with estimated right atrial pressure of 5 mmHg. CONCLUSIONS -------- 1. Sinus rhythm. 2. Mild mitral annular calcification present. 3. There is trace to mild mitral regurgitation. 4. Trace tricuspid regurgitation present. 5. There is no evidence of pulmonary hypertension. 6. The right ventricular systolic pressure, as measured by Doppler, is 10.99mmHg. 7. The aortic root size is normal. 8. This was a technically difficult study with suboptimal views. 9. Pt. is combative 10. Pt. not compliant. 11. There is moderate concentric left ventricular hypertrophy. 12. Overall left ventricular systolic function is normal with, an EF between 55 - 60 %. 13. LA is midly dilated 29-33ml/m2. 14. Aortic valve is trileaflet and is mildly thickened. 15. The mitral valve leaflets are mildly thickened. ADOBE DEVELOPER: Michael Marks RDCS
--- NOTE | 2017-02-16 10:10 | HP ---
Chief complaint is an elderly white female with altered mental status. HISTORY OF PRESENT ILLNESS: Elderly white female admitted to ICU for altered mental status, unresponsiveness. Brought in due to the boyfriend calling the EMS due to lethargy. No drug or alcohol use. She went to bed last night, she was minimally arousable during the night, became unresponsive this morning, was brought to the emergency room. She was placed on oxygenation, but she is still not waking up and giving appropriate answers. HOME MEDICATION LIST: 1. Lisinopril. 2. [place]. 3. NovoLog 70-30. Narcan was given without relief. ALLERGIES: No known drug allergies. REVIEW OF SYSTEMS: Negative as patient is unable to talk, she is obtunded. PAST MEDICAL HISTORY: Diabetes mellitus, DVT, ophthamologic disorder, dyslipidemia, hypertension, left tib/fib fracture, diabetic retinopathy, osteomyelitis of the right calcaneus, diabetic ulcer stage III of the right heel , bilateral buttock decubitus ulcers. Surgery is appendectomy, back surgery, , cholecystectomy, hernia repair , tubal ligation, bilateral foot spur surgery, PICC insertion. SOCIAL HISTORY: Former smoker, former alcohol, no illicit drugs. FAMILY HISTORY: Mother with diabetes mellitus, father unknown, daughter diabetes mellitus. PHYSICAL EXAM: White female with altered mental status, giving no answers. She is obese. BMI is over 40. No scleral icterus. Pupils equal, round and rective to light and accommodation, normal appearance. Extraocular movements intact. HEAD: Normocephalic, atraumatic. NECK: Supple, no JVD, no meningismis. RESPIRATORY: Clear except for some mild wheezes at the base. No rales, rhonchi or wheezing other than that. CARDIOVASCULAR: S1, S2, no distant heart sounds, no murmurs, rubs or gallops. GI: Distended, obesity, soft, nontender. NEUROLOGIC: She is responsive to deep palpation and pain. BACK: Normal inspection. NEUROLOGIC: No pedal edema, joint swelling or calf tenderness. PSYCH: Fair mood and affect except patient is not really responding much due to lethargy. SKIN: No rash, excoriation, bruising. Temp 97.9, pulse 58 to 67, respiratory 14 to 18, blood pressure is 190s to 200s/ 70s to 80s. Labs are reviewed. Chest x-ray is reviewed. ASSESSMENT: 1. Malaise and hypertension. 2. Early congestive heart failure. 3. Urinary tract infection with urosepsis. 4. Acute on chronic systolic heart failure. 5. Possible hypothyroidism. Will add hypothyroid medicine. Admit to ICU. Echo will be done, carotid ultrasound will be done. Echocardiogram will be done. Please see further orders. MTDD
[2017-02-16 11:11] LABS: Hemoglobin A1C 6.3 % (4.2-6.1)
[2017-02-16 11:22] LABS: Glucose,Whole Blood 140 mg/dL (75-99)
[2017-02-16] MEDS ORDERED: ATROPINE SULFATE 0.1 MG/ML 10ML SYRINGE ONE (12:10)
--- NOTE | 2017-02-16 13:01 | XR ---
2 view abdomen HISTORY: Possible bowel obstruction, NG tube placement 2 views of the abdomen are submitted. 3 images. NG tube is present, distal tip may be coiled in the distal stomach or may be present within the proxi mal duodenum. Postop changes are noted at the lumbosacral junction. The heart is enlarged. There are overlying cardiac leads. Interstitium appears increased at the lung bases. No pneumoperitoneum or bow el dilation is evident. Vascular calcifications are present. There may be gallbladder distention. Pro minent soft tissue noted in the right upper quadrant. IMPRESSION: NG tube is described. Additional nonspecific findings above.
--- NOTE | 2017-02-16 15:36 | P.PN ---
Subjective 02/15/17- This is a 58-year-old female to the ER for altered mental status. Patient was found by boyfriend today being unresponsive, EMS was called to patient's house, patient is unable to give history secondary to critical condition, history is obtained from EMS and the patient's chart. Patient and his boyfriend deny any drug or alcohol abuse. No known trauma history. The patient has been last seen yesterday before she went to bed. She is minimally arousable throughout the night and became unresponsive this morning then eventually brought into the emergency department she however is maintaining her airway and arterial blood gas has been reviewed hyperventilation oxygen is fairly adequate 02/16/17 upon examination today the patient is seen and examined in the intensive care unit. The patient's mentation has slightly improved she does respond to questions however sometimes not appropriately, continues to have intermittent confusion. Does recognize some of her children but not all of them. Patient continues on 2 L of supplemental oxygen via nasal cannula. Patient did require the inserts and of an NG tube overnight she has had approximately [address] Steele has been consult it, for possible bowel obstruction. Chest x-ray of the abdomen is negative patient is going for CT of the abdomen and pelvis this afternoon as well as the MRI of the brain. Of note earlier today the patient did have a bradycardic episode in the 30s and spontaneously came out of it to a normal sinus rhythm. Family at bedside and have been updated on the patient's current condition and the plan of care at length all questions have been answered. Chest x-ray and echo have been reviewed as well as today's labs. Objective - Vital Signs Vital signs: Vital Signs Temp 98.1 F 02/16/17 04:00 Pulse 66 02/16/17 14:00 Resp 18 02/16/17 14:00 BP 184/79 02/16/17 14:00 Pulse Ox 98 02/16/17 14:00 Intake & Output 02/15/17 02/16/17 02/16/17 18:59 06:59 18:59 Intake Total 900 700 Output Total 600 4314 1280 Balance -600 -415 -585 Weight 122 kg 121.6 kg Intake: IV 900 700 Sodium Chloride 0.9% 1, 900 700 000 ml @ 100 mls/hr IV . Q10H [facility] Rx#:[id number] Output: Gastric Drainage 900 Urine 600 1315 385 Uretheral (Epstein) 200 200 Other: Voiding Method Indwelling Catheter Indwelling Catheter # Bowel Movements 0 - Exam GENERAL EXAM: Alert, intermittent confusion, comfortable in no apparent distress. HEAD: Normocephalic. EYES: Normal reaction of pupils, equal size. NOSE: Clear with pink turbinates. THROAT: No erythema or exudates. NECK: No masses, no JVD. CHEST: No chest wall deformity. LUNGS: Equal air entry slightly coarse with no crackles, wheeze, rhonchi or dullness. CVS: S1 and S2 normal with no audible mumurs, regular rhythm. ABDOMEN: No hepatosplenomegaly, hypoactive bowel sounds, no guarding or rigidity. EXTREMITIES: No edema noted, pedal pulses palpable. SKIN: No rashes CENTRAL NERVOUS SYSTEM: No focal deficits, tone is normal in all 4 extremities. - Labs CBC & Chem 7: 02/16/17 05:10 02/16/17 05:10 Labs: Abnormal Lab Results - Last 24 Hours (Table) 02/15/17 02/15/17 02/15/17 Range/Units 10:50 14:50 18:17 Hct (34.0-46.0) % Plt Count (150-450) k/uL PT (9.0-12.0) sec INR (<1.2) ABG pH 7.47 H (7.35-7.45) ABG pCO2 27 L (35-45) mmHg ABG pO2 134 H (83-108) mmHg ABG HCO3 19 L (21-25) mmol/L ABG O2 Saturation 99.0 H (94-97) % Chloride (98-107) mmol/L Carbon Dioxide (22-30) mmol/L Glucose (74-99) mg/dL POC Glucose (mg/dL) 162 H (75-99) mg/dL Hemoglobin A1c (4.2-6.1) % Troponin I (0.000-0.034) ng/mL Free T3 pg/mL 2.3 L (2.8-5.3) pg/ml 02/15/17 02/15/17 02/15/17 Range/Units 18:25 21:09 23:40 Hct (34.0-46.0) % Plt Count (150-450) k/uL PT (9.0-12.0) sec INR (<1.2) ABG pH (7.35-7.45) ABG pCO2 (35-45) mmHg ABG pO2 (83-108) mmHg ABG HCO3 (21-25) mmol/L ABG O2 Saturation (94-97) % Chloride (98-107) mmol/L Carbon Dioxide (22-30) mmol/L Glucose (74-99) mg/dL POC Glucose (mg/dL) 166 H (75-99) mg/dL Hemoglobin A1c (4.2-6.1) % Troponin I 0.053 H* 0.061 H* (0.000-0.034) ng/mL Free T3 pg/mL (2.8-5.3) pg/ml 02/16/17 02/16/17 02/16/17 Range/Units 00:55 03:19 05:10 Hct (34.0-46.0) % Plt Count (150-450) k/uL PT (9.0-12.0) sec INR (<1.2) ABG pH (7.35-7.45) ABG pCO2 (35-45) mmHg ABG pO2 (83-108) mmHg ABG HCO3 (21-25) mmol/L ABG O2 Saturation (94-97) % Chloride (98-107) mmol/L Carbon Dioxide (22-30) mmol/L Glucose (74-99) mg/dL POC Glucose (mg/dL) 160 H 125 H (75-99) mg/dL Hemoglobin A1c 6.3 H (4.2-6.1) % Troponin I (0.000-0.034) ng/mL Free T3 pg/mL (2.8-5.3) pg/ml 02/16/17 02/16/17 02/16/17 Range/Units 05:10 05:10 05:10 Hct 46.6 H (34.0-46.0) % Plt Count 124 L (150-450) k/uL PT 12.8 H (9.0-12.0) sec INR 1.3 H (<1.2) ABG pH (7.35-7.45) ABG pCO2 (35-45) mmHg ABG pO2 (83-108) mmHg ABG HCO3 (21-25) mmol/L ABG O2 Saturation (94-97) % Chloride 109 H (98-107) mmol/L Carbon Dioxide 21 L (22-30) mmol/L Glucose 121 H (74-99) mg/dL POC Glucose (mg/dL) (75-99) mg/dL Hemoglobin A1c (4.2-6.1) % Troponin I (0.000-0.034) ng/mL Free T3 pg/mL (2.8-5.3) pg/ml 02/16/17 02/16/17 Range/Units 08:15 11:19 Hct (34.0-46.0) % Plt Count (150-450) k/uL PT (9.0-12.0) sec INR (<1.2) ABG pH (7.35-7.45) ABG pCO2 (35-45) mmHg ABG pO2 (83-108) mmHg ABG HCO3 (21-25) mmol/L ABG O2 Saturation (94-97) % Chloride (98-107) mmol/L Carbon Dioxide (22-30) mmol/L Glucose (74-99) mg/dL POC Glucose (mg/dL) 131 H 140 H (75-99) mg/dL Hemoglobin A1c (4.2-6.1) % Troponin I (0.000-0.034) ng/mL Free T3 pg/mL (2.8-5.3) pg/ml Microbiology - Last 24 Hours (Table) 02/15/17 12:00 Blood Culture - Preliminary Blood No Growth after 24 hours Assessment and Plan Plan: Assessment Probable stroke, altered mental status Right upper lobe pneumonia probable aspiration Urinary tract infection Possible bowel obstruction versus gastroparesis related to uncontrolled diabetes mellitus Elevated troponins possibly related to non-ST segment elevated AL Plan Medications have been reviewed and will be continued as ordered. Patient will be going for a CT of the abdomen as well as an MRI of the brain today. Patient will also have an EEG. Echocardiogram reviewed ejection fraction between 55 and 60%. No evidence of pulmonary hypertension. Continue with pulmonary hygiene, coughing and deep breathing exercises, and supportive care. Supplemental oxygen to maintain oxygen saturations of 92% or better. Add nebulizer treatments. GI and DVT prophylaxis. We will continue to monitor labs/ results and adjust treatment as necessary. Further recommendations pending. I performed an examination of the patient and discussed their management with the nurse practitioner. I have reviewed the nurse practitioner's note and agree with the documented findings and plan of care.
--- NOTE | 2017-02-16 16:21 | CT ---
EXAMINATION TYPE: CT abdomen pelvis wo con DATE OF EXAM: 02/16/2017 COMPARISON: 06/22/2013 HISTORY: Patient poor historian. Rule out bowel obstruction. CT DLP: 2379.6 mGycm Examination of the solid and hollow viscera is limited given the lack of contrast. FINDINGS: LUNG BASES: No evidence for nodule. No evidence for infiltrate. LIVER/GB: The gallbladder is unremarkable. No space-occupying hepatic lesion. PANCREAS: No pancreatic mass identified. No inflammatory process seen. SPLEEN: No evidence for splenomegaly. No intrasplenic lesions seen. ADRENALS: No adrenal nodules identified. No evidence for thickening. KIDNEYS: Left renal cyst unchanged from prior study. No nephrolithiasis. No hydronephrosis. Epstein bal loon catheter is within the urinary bladder. BOWEL: Appendix has a normal appearance. No evidence of bowel obstruction. No inflammatory process. N G tube is noted within the stomach. Lymph nodes: No evidence for adenopathy greater than 1 cm. Abdominal aorta: Atheromatous changes seen. No evidence for aneurysm. Genital organs: Calcified leiomyomas of the uterus. No adnexal masses seen. Other: Fat-containing umbilical hernia. Degenerative changes lumbar spine with laminectomy changes id entified. IMPRESSION: 1. NO EVIDENCE OF BOWEL OBSTRUCTION AT THIS TIME OR INFLAMMATORY PROCESS. 2. NO EVIDENCE FOR FREE AIR OR ABSCESS.
[2017-02-16 17:00] LABS: Glucose,Whole Blood 162 mg/dL (75-99)
--- NOTE | 2017-02-16 17:05 | MR ---
MR brain without contrast HISTORY: Altered mental status, unresponsive and encephalopathy Multiplanar multisequence imaging through the brain correlated to prior exam 02/15/2017 CT brain Restricted diffusion noted within the left and right cerebellar hemispheres, additionally foci involv ing the medial occipital lobes right greater than left, temporal lobes bilaterally with smaller foci scattered in the frontal lobes, larger area in the right greater than left parietal lobe. There is no hemorrhage or hydrocephalus. There is cortical atrophy. Periventricular white matter hyperintensity on inversion recovery and T2-weighted sequences is noted as well as corresponding cortical abnormal s ignal that corresponds to the restricted diffusion areas. The orbits show symmetric appearance. There are normal vascular flow voids. Corpus callosum, pituitary, cervical medullary junction, cerebellopo ntine angles are within normal limits. IMPRESSION: Multifocal predominantly cortical areas of subacute ischemia.
--- NOTE | 2017-02-16 17:42 | P.GSCN ---
History of Present Illness Consult date: 02/16/17 Reason for Consult: Ileus versus partial small bowel structure History of present illness: This is a 66-year-old female with Dr. Moe Levy service. Patient was admitted yesterday to the ICU patient had a nasogastric tube inserted after she had vomiting. She had large volume of enteric contents aspirated from the nasogastric tube. I've asked see her regarding possible bowel obstruction. The patient states she feels bloated however she has no significant abdominal pain. Past Medical History Past Medical History: Diabetes Mellitus, Deep Vein Thrombosis (DVT), Eye Disorder, Hyperlipidemia, Hypertension Additional Past Medical History / Comment(s): NT, EDEMA PAPO FEET. DIABETIC RETINOPATHY, osteomyelitis of the right calcaneus, Melendez grade 3 diabetic ulcer to the right heel, bilateral buttocks decubitus ulcers. History of Any Multi-Drug Resistant Organisms: None Reported Past Surgical History: Appendectomy, Back Surgery, Section, Cholecystectomy, Hernia Repair, Tubal Ligation Additional Past Surgical History / Comment(s): RT EYE SURG for diabetic retinopathy, lumbar fusion, PAPO FOOT SPUR SURG. Picc insertion. Past Anesthesia/Blood Transfusion Reactions: No Reported Reaction Past Psychological History: No Psychological Hx Reported Smoking Status: Current every day smoker Past Alcohol Use History: None Reported Additional Past Alcohol Use History / Comment(s): Patient was a smoker of half a pack of cigarettes per day for 27 years and quit when she was 43 years of age. She denies any medical marijuana, marijuana, street drug or alcohol use. 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 She does have a dog in the home and lives with her boyfriend. She denies any recent travel. Past Drug Use History: None Reported - Past Family History Mother Family Medical History: Cancer, Diabetes Mellitus Additional Family Medical History / Comment(s): mother is . Father History Unknown: Yes Daughter(s) Family Medical History: Diabetes Mellitus Medications and Allergies Home Medications Medication Instructions Recorded Confirmed Type Lisinopril 40 mg PO DAILY 06/06/14 02/15/17 History HYDROcodone/APAP 7.5-325MG [[place] 1 tab PO Q6H PRN 04/27/15 02/15/17 History 7.5-325] Insulin Aspart Protam & Aspart 40 unit SQ BID 02/15/17 02/15/17 History [Novolog Mix 70-30 Flexpen Syrn] Allergies Allergy/AdvReac Type Severity Reaction Status Date / Time No Known Allergies Allergy Verified 02/15/17 12:18 Surgical - Exam Vital Signs Temp Pulse Resp BP Pulse Ox 97.9 F 67 14 191/84 80 L 02/15/17 10:49 02/15/17 10:49 02/15/17 10:49 02/15/17 10:49 02/15/17 10:49 - General well developed, no distress - Eyes PERRL - ENT normal pinna - Neck no masses - Respiratory normal expansion - Cardiovascular Rhythm: regular - Abdomen Abdomen: soft, non tender Results - Labs 02/16/17 05:10 02/16/17 05:10 Abnormal Lab Results - Last 24 Hours (Table) 02/15/17 02/15/17 02/15/17 Range/Units 10:50 18:17 18:25 Hct (34.0-46.0) % Plt Count (150-450) k/uL PT (9.0-12.0) sec INR (<1.2) Chloride (98-107) mmol/L Carbon Dioxide (22-30) mmol/L Glucose (74-99) mg/dL POC Glucose (mg/dL) 162 H (75-99) mg/dL Hemoglobin A1c (4.2-6.1) % Troponin I 0.053 H* (0.000-0.034) ng/mL Free T3 pg/mL 2.3 L (2.8-5.3) pg/ml 02/15/17 02/15/17 02/16/17 Range/Units 21:09 23:40 00:55 Hct (34.0-46.0) % Plt Count (150-450) k/uL PT (9.0-12.0) sec INR (<1.2) Chloride (98-107) mmol/L Carbon Dioxide (22-30) mmol/L Glucose (74-99) mg/dL POC Glucose (mg/dL) 166 H 160 H (75-99) mg/dL Hemoglobin A1c (4.2-6.1) % Troponin I 0.061 H* (0.000-0.034) ng/mL Free T3 pg/mL (2.8-5.3) pg/ml 02/16/17 02/16/17 02/16/17 Range/Units 03:19 05:10 05:10 Hct 46.6 H (34.0-46.0) % Plt Count 124 L (150-450) k/uL PT (9.0-12.0) sec INR (<1.2) Chloride (98-107) mmol/L Carbon Dioxide (22-30) mmol/L Glucose (74-99) mg/dL POC Glucose (mg/dL) 125 H (75-99) mg/dL Hemoglobin A1c 6.3 H (4.2-6.1) % Troponin I (0.000-0.034) ng/mL Free T3 pg/mL (2.8-5.3) pg/ml 02/16/17 02/16/17 02/16/17 Range/Units 05:10 05:10 08:15 Hct (34.0-46.0) % Plt Count (150-450) k/uL PT 12.8 H (9.0-12.0) sec INR 1.3 H (<1.2) Chloride 109 H (98-107) mmol/L Carbon Dioxide 21 L (22-30) mmol/L Glucose 121 H (74-99) mg/dL POC Glucose (mg/dL) 131 H (75-99) mg/dL Hemoglobin A1c (4.2-6.1) % Troponin I (0.000-0.034) ng/mL Free T3 pg/mL (2.8-5.3) pg/ml 02/16/17 02/16/17 Range/Units 11:19 16:58 Hct (34.0-46.0) % Plt Count (150-450) k/uL PT (9.0-12.0) sec INR (<1.2) Chloride (98-107) mmol/L Carbon Dioxide (22-30) mmol/L Glucose (74-99) mg/dL POC Glucose (mg/dL) 140 H 162 H (75-99) mg/dL Hemoglobin A1c (4.2-6.1) % Troponin I (0.000-0.034) ng/mL Free T3 pg/mL (2.8-5.3) pg/ml Microbiology - Last 24 Hours (Table) 02/15/17 12:00 Blood Culture - Preliminary Blood No Growth after 24 hours Diabetes panel 02/16/17 02/16/17 Range/Units 05:10 05:10 Sodium 143 (137-145) mmol/L Potassium 4.1 (3.5-5.1) mmol/L Chloride 109 H (98-107) mmol/L Carbon Dioxide 21 L (22-30) mmol/L BUN 13 (7-17) mg/dL Creatinine 0.70 (0.52-1.04) mg/dL Glucose 121 H (74-99) mg/dL Hemoglobin A1c 6.3 H (4.2-6.1) % Calcium 8.9 (8.4-10.2) mg/dL AST 23 (14-36) U/L ALT 28 (9-52) U/L Alkaline Phosphatase 74 (38-126) U/L Total Protein 6.6 (6.3-8.2) g/dL Albumin 3.5 (3.5-5.0) g/dL Thyroid panel 02/15/17 Range/Units 10:50 TSH 0.670 (0.465-4.680) mIU/L Calcium panel 02/16/17 Range/Units 05:10 Calcium 8.9 (8.4-10.2) mg/dL Phosphorus 2.6 (2.5-4.5) mg/dL Albumin 3.5 (3.5-5.0) g/dL Pituitary panel 02/15/17 02/16/17 Range/Units 10:50 05:10 Sodium 143 (137-145) mmol/L Potassium 4.1 (3.5-5.1) mmol/L Chloride 109 H (98-107) mmol/L Carbon Dioxide 21 L (22-30) mmol/L BUN 13 (7-17) mg/dL Creatinine 0.70 (0.52-1.04) mg/dL Glucose 121 H (74-99) mg/dL Calcium 8.9 (8.4-10.2) mg/dL TSH 0.670 (0.465-4.680) mIU/L Adrenal panel 02/16/17 Range/Units 05:10 Sodium 143 (137-145) mmol/L Potassium 4.1 (3.5-5.1) mmol/L Chloride 109 H (98-107) mmol/L Carbon Dioxide 21 L (22-30) mmol/L BUN 13 (7-17) mg/dL Creatinine 0.70 (0.52-1.04) mg/dL Glucose 121 H (74-99) mg/dL Calcium 8.9 (8.4-10.2) mg/dL Total Bilirubin 0.9 (0.2-1.3) mg/dL AST 23 (14-36) U/L ALT 28 (9-52) U/L Alkaline Phosphatase 74 (38-126) U/L Total Protein 6.6 (6.3-8.2) g/dL Albumin 3.5 (3.5-5.0) g/dL Assessment and Plan Plan: The patient had a computed tomography scan then performed. There is known 70 obstruction. She most likely has a UTI with ileus. Patient remained in the ICU. We will remove her nasogastric tube when she has bowel function.
--- NOTE | 2017-02-16 20:00 | CONS ---
DATE OF SERVICE: 02/16/2017 REASON FOR CONSULTATION: Infection. HISTORY OF PRESENT ILLNESS: The patient is a 66-year-old female who was brought in to the [facility] after the patient was found to be unresponsive at home. Apparently the patient was quite obtunded when she was seen in the ER by the ER physician. She did have CT of the brain which shows possible left parietal region infarct versus artifact. The patient subsequently has been admitted to the ICU for a CVA workup. Patient did not have any fever; however, she was noted to have significantly positive UA. Patient also had a CT angiogram that was a suboptimal study; no large central pulmonary emboli; diffuse ground-glass opacity throughout the lungs may represent pneumonitis or alveolitis. The patient was started on Rocephin. I was asked to see the patient for further recommendations regarding antibiotic therapy. The patient seems to be slightly more awake and alert. She knows that she is in the hospital, but she was unable to tell me which hospital. When asked specifically about any headache, the patient denied having any headache or any chest pain; minimal cough; no nausea or vomiting; no abdominal pain or any diarrhea. REVIEW OF SYSTEMS: CONSTITUTIONAL: Positive for weakness but no fever. EYES: No complaint. ENT: No complaint. RESPIRATORY: As per HPI. CARDIOVASCULAR: No complaint. GENITOURINARY: As per HPI. GASTROINTESTINAL: No complaint. MUSCULOSKELETAL: No complaint. INTEGUMENTARY: No complaint. PSYCHOLOGIC: No complaint. ENDOCRINE: No complaint. NEUROLOGIC: As per HPI. Past medical history is significant for: 1. Diabetes mellitus. 2. DVT. 3. Hypertension. 4. Hyperlipidemia. 5. Eye disorder. 6. Diabetic retinopathy. 7. Right calcaneus osteomyelitis. 8. Alejandra's grade 3 diabetic ulcer of the right heel that is healed. 9. Bilateral pressure ulcers to the gluteal area, now healed. PAST SURGICAL HISTORY: 1. Appendectomy. 2. Back surgery. 3. C section. 4. Cholecystectomy. 5. Hernia repair. 6. Tubal ligation. SOCIAL HISTORY: The patient is a current everyday smoker. Smokes about half a pack a day. No drinking or any drug use. FAMILY HISTORY: Mother with history of diabetes, cancer. ALLERGIES: NO KNOWN DRUG ALLERGIES. Current medications include: 1. Rocephin 1 gram daily. 2. Lovenox. 3. Esomeprazole. 4. Hydralazine. 5. Humalog. 6. Narcan. 7. Nitro-Bid. 8. IV fluid. On examination, blood pressure is 184/79 with a pulse of 66, temperature 98.1. She is 98% on 2 L nasal cannula. General description is an elderly female lying in bed in no distress. No tachypnea or accessory muscle of respiration use. HEENT examination shows no pallor or scleral icterus. Oral mucous membrane is dry. NECK: Trachea is central. No thyromegaly. LUNGS: Unlabored breathing. Clear to auscultation anteriorly. No wheeze or crackle. HEART: S1, S2. Regular rate and rhythm. ABDOMEN: Soft. No guarding. No rigidity. No tenderness. EXTREMITIES: No edema of the feet. SKIN EXAMINATION: No rashes or masses palpable. Neurologically patient is awake, alert, oriented x2. Mood and affect normal. LABS: Hemoglobin is 15.3, white count of 9.4. BUN of 13, creatinine 0.70. Urine is positive. Blood culture so far negative. Chest x-ray, CT as mentioned above. DIAGNOSTIC IMPRESSION AND PLAN: Patient admitted to hospital with mental status changes in a patient being worked up for possible CVA. The patient also has significantly positive UA and UTI from enteric Gram-negative pathogen not entirely excluded. Patient was noted to have some evidence of alveolitis on the CT. She is currently breathing comfortably on room air. Denied any significant chest pain or shortness of breath or cough; pneumonia not likely. PLAN: 1. Rocephin 1 gram IV daily to continue. 2. Gentle hydration. 3. Depending on clinical response and cultures, will adjust antibiotics further if needed. Thank you for this consultation. Will follow this patient along with you. TAVIA
[2017-02-16] MEDS: IPRATROPIUM-ALBUTEROL 3 ML NEB INHALATION SCH (20:14)
[2017-02-16 20:26] LABS: Glucose,Whole Blood 166 mg/dL (75-99)
--- NOTE | 2017-02-16 21:28 | P.CRDCN ---
History of Present Illness Consult date: 02/16/17 History of present illness: This is a 66-year-old female who was brought to the hospital after her boyfriend found her on response and at home. Apparently she was very upset and did when she came to the emergency room. There is no history of any drug or alcohol abuse. Patient had a computed tomography scan of the brain which revealed lucent area in the left parietal region which was felt could be secondary to artifact. Patient also had a computed tomography scan of the chest which ruled out pulmonary embolism. An echocardiogram showed normal LV function without any significant valvular abnormalities, patient mental status seemed to be gradually improving. She is able to answer a few Questions but according to the nursing staff, her mental status has been fluctuating. Patient is also found to have possible pneumonia and also UTI. EKG showed sinus rhythm without any acute abnormalities. Chest x-ray showed right upper lobe infiltrate at this time. There doesn't seem to be acute cardiac issues. However, patient is acutely ill and is being followed by several consultants. Review of Systems Not obtained Past Medical History Past Medical History: Diabetes Mellitus, Deep Vein Thrombosis (DVT), Eye Disorder, Hyperlipidemia, Hypertension Additional Past Medical History / Comment(s): NT, EDEMA PAPO FEET. DIABETIC RETINOPATHY, osteomyelitis of the right calcaneus, Melendez grade 3 diabetic ulcer to the right heel, bilateral buttocks decubitus ulcers. History of Any Multi-Drug Resistant Organisms: None Reported Past Surgical History: Appendectomy, Back Surgery, Section, Cholecystectomy, Hernia Repair, Tubal Ligation Additional Past Surgical History / Comment(s): RT EYE SURG for diabetic retinopathy, lumbar fusion, PAPO FOOT SPUR SURG. Picc insertion. Past Anesthesia/Blood Transfusion Reactions: No Reported Reaction Past Psychological History: No Psychological Hx Reported Smoking Status: Current every day smoker Past Alcohol Use History: None Reported Additional Past Alcohol Use History / Comment(s): Patient was a smoker of half a pack of cigarettes per day for 27 years and quit when she was 43 years of age. She denies any medical marijuana, marijuana, street drug or alcohol use. 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 She does have a dog in the home and lives with her boyfriend. She denies any recent travel. Past Drug Use History: None Reported - Past Family History Mother Family Medical History: Cancer, Diabetes Mellitus Additional Family Medical History / Comment(s): mother is . Father History Unknown: Yes Daughter(s) Family Medical History: Diabetes Mellitus Medications and Allergies Home Medications Medication Instructions Recorded Confirmed Type Lisinopril 40 mg PO DAILY 06/06/14 02/15/17 History HYDROcodone/APAP 7.5-325MG [[place] 1 tab PO Q6H PRN 04/27/15 02/15/17 History 7.5-325] Insulin Aspart Protam & Aspart 40 unit SQ BID 02/15/17 02/15/17 History [Novolog Mix 70-30 Flexpen Syrn] Allergies Allergy/AdvReac Type Severity Reaction Status Date / Time No Known Allergies Allergy Verified 02/15/17 12:18 Physical Exam Vitals: Vital Signs Temp Pulse Resp BP Pulse Ox 02/16/17 20:25 70 02/16/17 20:15 68 95 02/16/17 20:00 99.2 F 63 18 163/68 98 02/16/17 19:00 63 20 199/79 98 02/16/17 18:00 76 13 189/92 99 02/16/17 17:00 73 15 189/92 99 02/16/17 16:55 73 15 100 02/16/17 16:19 94 L 02/16/17 16:00 15 02/16/17 15:00 71 17 197/79 100 02/16/17 14:00 66 18 184/79 98 02/16/17 13:00 71 15 184/79 98 02/16/17 12:00 70 17 184/79 99 02/16/17 11:00 77 15 118/60 98 02/16/17 10:00 64 15 118/60 98 02/16/17 09:00 69 20 199/86 98 02/16/17 08:00 63 19 182/80 95 02/16/17 07:00 68 15 173/72 100 02/16/17 06:00 61 14 165/64 100 02/16/17 05:00 60 18 174/71 98 02/16/17 04:50 61 15 174/71 96 02/16/17 04:40 63 16 168/69 94 L 02/16/17 04:30 59 L 13 168/69 100 02/16/17 04:20 65 16 168/69 99 02/16/17 04:10 65 17 169/73 97 02/16/17 04:00 98.1 F 60 18 169/73 100 02/16/17 03:50 59 L 15 169/73 100 02/16/17 03:40 63 15 179/69 100 02/16/17 03:30 63 20 179/69 98 02/16/17 03:20 69 18 179/69 100 02/16/17 03:10 62 17 119/80 100 02/16/17 03:00 70 24 119/80 100 02/16/17 02:50 62 13 119/80 100 02/16/17 02:40 63 17 168/73 100 02/16/17 02:30 65 16 168/73 100 02/16/17 02:20 69 19 169/85 94 L 02/16/17 02:10 61 16 169/85 100 02/16/17 02:00 61 13 169/85 100 02/16/17 01:50 61 14 169/85 100 02/16/17 01:40 64 15 169/85 99 02/16/17 01:30 67 11 L 169/85 99 02/16/17 01:20 64 16 169/85 100 02/16/17 01:10 66 15 169/85 99 02/16/17 01:00 69 17 169/85 99 02/16/17 00:50 98.7 F 69 24 169/85 98 02/16/17 00:40 98 02/16/17 00:31 19 99 02/16/17 00:28 87 19 99 02/16/17 00:10 92 20 150/67 99 02/16/17 00:00 74 19 150/67 99 02/15/17 23:50 67 20 150/67 99 02/15/17 23:40 69 20 150/67 99 02/15/17 23:30 65 15 150/67 98 02/15/17 23:20 76 28 H 150/67 99 02/15/17 23:10 86 19 169/67 100 02/15/17 23:00 72 20 169/67 99 02/15/17 22:50 72 16 169/67 99 02/15/17 22:40 69 13 164/78 99 02/15/17 22:30 70 19 164/78 99 02/15/17 22:23 74 21 164/78 99 02/15/17 22:20 74 14 164/78 99 02/15/17 22:10 70 21 162/69 100 02/15/17 22:00 68 27 H 162/69 99 02/15/17 21:50 63 18 162/69 99 02/15/17 21:40 74 16 170/63 99 02/15/17 21:30 76 15 170/63 99 02/15/17 21:20 81 17 170/63 100 Intake and Output 02/16/17 02/16/17 02/16/17 06:59 14:59 22:59 Intake Total 800 800 400 Output Total 815 1335 225 Balance -15 -535 175 Intake: IV 800 800 400 Sodium Chloride 0.9% 1, 800 800 400 000 ml @ 100 mls/hr IV . Q10H [facility] Rx#:[id number] Output: Gastric Drainage 900 Urine 815 435 225 Uretheral (Epstein) 200 Other: Voiding Method Indwelling Catheter Indwelling Catheter Indwelling Catheter # Bowel Movements 0 0 Weight 121.6 kg GENERAL EXAM: Patient is a vague and was able to follow some commands and answer simple questions. However, her mental status has been fluctuating HEENT: Normocephalic. N NECK: No masses, no nuchal rigidity. CHEST: No chest wall deformity. LUNGS: Equal air entry with no crackles or wheeze. HEART: S1 and S2 normal w ABDOMEN: Soft. SKIN: No rashes CENTRAL NERVOUS SYSTEM: As per neurology EXTREMITIES: No cyanosis, clubbing or edema. Results 02/16/17 05:10 02/16/17 05:10 Cardiac Enzymes 02/15/17 02/16/17 Range/Units 23:40 05:10 AST 23 (14-36) U/L CK-MB (CK-2) 1.6 (0.0-2.4) ng/mL Troponin I 0.061 H* (0.000-0.034) ng/mL Coagulation 02/16/17 Range/Units 05:10 PT 12.8 H (9.0-12.0) sec CBC 02/16/17 Range/Units 05:10 WBC 9.4 (3.8-10.6) k/uL RBC 4.75 (3.80-5.40) m/uL Hgb 15.3 (11.4-16.0) gm/dL Hct 46.6 H (34.0-46.0) % Plt Count 124 L (150-450) k/uL Comprehensive Metabolic Panel 02/16/17 Range/Units 05:10 Sodium 143 (137-145) mmol/L Potassium 4.1 (3.5-5.1) mmol/L Chloride 109 H (98-107) mmol/L Carbon Dioxide 21 L (22-30) mmol/L BUN 13 (7-17) mg/dL Creatinine 0.70 (0.52-1.04) mg/dL Glucose 121 H (74-99) mg/dL Calcium 8.9 (8.4-10.2) mg/dL AST 23 (14-36) U/L ALT 28 (9-52) U/L Alkaline Phosphatase 74 (38-126) U/L Total Protein 6.6 (6.3-8.2) g/dL Albumin 3.5 (3.5-5.0) g/dL Current Medications Generic Name Dose Route Start Last Admin Trade Name Freq PRN Reason Stop Dose Admin Albuterol/Ipratropium 3 ml 02/16/17 20:00 02/16/17 20:14 Duoneb 0.5 Mg-3 Mg/3 Ml Soln INHALATION 3 ml RT-TID [facility] Administration Enoxaparin Sodium 40 mg 02/16/17 09:00 02/16/17 09:10 Lovenox SQ 40 mg DAILY [facility] Administration Hydralazine HCl 10 mg 02/15/17 14:20 02/16/17 18:55 Apresoline IVP 10 mg Q4HR PRN Administration Blood Pressure - High Esomeprazole Magnesium 20 mg/ 50 mls @ 100 mls/hr 02/16/17 09:00 02/16/17 09: 10 Sodium Chloride IVPB 100 mls/hr DAILY [facility] Administration Sodium Chloride 1,000 mls @ 100 mls/hr 02/15/17 14:30 02/16/17 11:24 Saline 0.9% IV 100 mls/hr .Q10H [facility] Administration Ceftriaxone Sodium 1,000 mg/ 50 mls @ 100 mls/hr 02/16/17 09:00 02/16/17 09: 12 Sodium Chloride IVPB 100 mls/hr Q24HR [facility] Administration Insulin Human Lispro 0 unit 02/15/17 20:00 02/16/17 20:27 Humalog SQ 2 unit Q4HR [facility] Administration Protocol Miscellaneous Information 1 each 02/15/17 11:44 02/15/17 12:13 Rx Info: Iv Contrast Was Given MISCELLANE 02/17/17 11:44 1 each DAILY PRN Administration Per Protocol Naloxone HCl 0.2 mg 02/15/17 14:17 Narcan IV Q2M PRN Opioid Reversal Nitroglycerin 0.5 inch 02/15/17 16:30 02/16/17 17:21 Nitro-Bid Oint TOPICAL 0.5 inch Q8HR [facility] Administration Intake and Output 02/16/17 02/16/17 02/16/17 06:59 14:59 22:59 Intake Total 800 800 400 Output Total 815 1335 225 Balance -15 -535 175 Intake: IV 800 800 400 Sodium Chloride 0.9% 1, 800 800 400 000 ml @ 100 mls/hr IV . Q10H [facility] Rx#:[id number] Output: Gastric Drainage 900 Urine 815 435 225 Uretheral (Epstein) 200 Other: Voiding Method Indwelling Catheter Indwelling Catheter Indwelling Catheter # Bowel Movements 0 0 Weight 121.6 kg 02/16/17 05:10 02/16/17 05:10 EKG Interpretations (text) Sinus rhythm Assessment and Plan (1) Acute encephalopathy Status: Acute (2) Altered mental status Status: Acute (3) CVA (cerebral vascular accident) Status: Acute (4) UTI (urinary tract infection) Status: Acute Plan: It appears that patient has a picture of encephalopathy. There is also possibility of CVA. Patient is being treated for UTI and also possible pneumonia. Echocardiogram showed normal LV function. EKG did not reveal any acute changes. At this point in no significant cardiac issues are noted. We' ll see her as needed
[2017-02-16] MEDS ORDERED: RX INFO: IV CONTRAST WAS GIVEN 1 EACH MISC MISCELLANE PRN (21:48)
--- NOTE | 2017-02-16 21:54 | P.PN ---
Subjective This patient is a 66 year old female seen in the ICU today for evaluation of altered mental status and confusion. The patient was seen on consultation yesterday in the ICU after she was found unresponsive at home. Boyfriend had brought her to the emergency room for further evaluation as he could not arouse her. Patient underwent an initial computed tomography scan of the brain which revealed a lucency in the left parietal lobe. She was subsequently admitted to the intensive care unit where she was seen on neurology consultation yesterday. Patient appeared to have evidence of encephalopathy. She was nonverbal. She was sent for MRI of the brain today. MRI reveals multifocal areas of acute cortical infarct. This suggests possibility of embolic stroke phenomenona. Some history was obtained today by to the patient's daughter at bedside in the ICU. Apparently they have also noted today that she is slightly more responsive but still has difficulty with her vision. We reviewed the results of the MRI today in detail with both of the daughters at bedside. She does have evidence of multiple strokes involving both hemispheres of the brain including the occipital lobe. She may have some visual impairment due to this occipital infarct. The patient continues to demonstrate gaze deviation to the right as she did yesterday. We're recommending a cardiology consultation for possible DIALLO procedure for this patient. She did undergo EEG testing today which was reviewed. EEG reveals moderate slowing. We would also recommend a CT angiogram of the head and neck be done to further evaluate for vascular occlusive disease especially intracranial producing these multiple infarcts. We will continue close neurological follow-up of this patient. Her overall prognosis at this time remains very guarded. We discussed all of her neurological exam findings and test results in detail with both of her daughters at bedside. All of their questions were answered. They are aware of their mother's guarded condition. Objective - Vital Signs Vital signs: Vital Signs Temp 98.1 F 02/16/17 04:00 Pulse 73 02/16/17 17:00 Resp 15 02/16/17 17:00 BP 189/92 02/16/17 17:00 Pulse Ox 99 02/16/17 17:00 Intake & Output 02/15/17 02/16/17 02/16/17 18:59 06:59 18:59 Intake Total 900 1100 Output Total 600 2009 3572 Balance -860 -803 -314 Weight 122 kg 121.6 kg Intake: IV 900 1100 Sodium Chloride 0.9% 1, 900 1100 000 ml @ 100 mls/hr IV . Q10H [facility] Rx#:[id number] Output: Gastric Drainage 900 Urine 600 1315 585 Uretheral (Epstein) 200 200 Other: Voiding Method Indwelling Catheter Indwelling Catheter # Bowel Movements 0 - Exam Physical examination: PHYSICAL EXAMINATION: Patient is resting comfortably in bed. VITAL SIGNS: Blood pressure is [163/68]. Heart rate is [63]. Respiration is [15] . Temperature is [99.2]. HEENT: Head is atraumatic, neck is supple, there were no carotid bruits. CHEST: Lungs are clear to auscultation and percussion. CARDIAC: S1, S2 normal rate and rhythm. There is no murmur. ABDOMEN: Soft and nontender. Bowel sounds are present. EXTREMITIES: There is no pedal edema. Peripheral pulses are present. Neurological examination: Patient is slightly more awake today in the intensive care unit. Her speech is slightly aphasic. Her memory and intellectual functions are impaired. She has no focal motor deficit on examination. Deep tendon reflexes are symmetric 1+. Plantar responses flexor bilaterally. - Labs CBC & Chem 7: 02/16/17 05:10 02/16/17 05:10 Labs: Abnormal Lab Results - Last 24 Hours (Table) 02/15/17 02/15/17 02/15/17 Range/Units 10:50 18:17 18:25 Hct (34.0-46.0) % Plt Count (150-450) k/uL PT (9.0-12.0) sec INR (<1.2) Chloride (98-107) mmol/L Carbon Dioxide (22-30) mmol/L Glucose (74-99) mg/dL POC Glucose (mg/dL) 162 H (75-99) mg/dL Hemoglobin A1c (4.2-6.1) % Troponin I 0.053 H* (0.000-0.034) ng/mL Free T3 pg/mL 2.3 L (2.8-5.3) pg/ml 02/15/17 02/15/17 02/16/17 Range/Units 21:09 23:40 00:55 Hct (34.0-46.0) % Plt Count (150-450) k/uL PT (9.0-12.0) sec INR (<1.2) Chloride (98-107) mmol/L Carbon Dioxide (22-30) mmol/L Glucose (74-99) mg/dL POC Glucose (mg/dL) 166 H 160 H (75-99) mg/dL Hemoglobin A1c (4.2-6.1) % Troponin I 0.061 H* (0.000-0.034) ng/mL Free T3 pg/mL (2.8-5.3) pg/ml 02/16/17 02/16/17 02/16/17 Range/Units 03:19 05:10 05:10 Hct 46.6 H (34.0-46.0) % Plt Count 124 L (150-450) k/uL PT (9.0-12.0) sec INR (<1.2) Chloride (98-107) mmol/L Carbon Dioxide (22-30) mmol/L Glucose (74-99) mg/dL POC Glucose (mg/dL) 125 H (75-99) mg/dL Hemoglobin A1c 6.3 H (4.2-6.1) % Troponin I (0.000-0.034) ng/mL Free T3 pg/mL (2.8-5.3) pg/ml 02/16/17 02/16/17 02/16/17 Range/Units 05:10 05:10 08:15 Hct (34.0-46.0) % Plt Count (150-450) k/uL PT 12.8 H (9.0-12.0) sec INR 1.3 H (<1.2) Chloride 109 H (98-107) mmol/L Carbon Dioxide 21 L (22-30) mmol/L Glucose 121 H (74-99) mg/dL POC Glucose (mg/dL) 131 H (75-99) mg/dL Hemoglobin A1c (4.2-6.1) % Troponin I (0.000-0.034) ng/mL Free T3 pg/mL (2.8-5.3) pg/ml 02/16/17 02/16/17 Range/Units 11:19 16:58 Hct (34.0-46.0) % Plt Count (150-450) k/uL PT (9.0-12.0) sec INR (<1.2) Chloride (98-107) mmol/L Carbon Dioxide (22-30) mmol/L Glucose (74-99) mg/dL POC Glucose (mg/dL) 140 H 162 H (75-99) mg/dL Hemoglobin A1c (4.2-6.1) % Troponin I (0.000-0.034) ng/mL Free T3 pg/mL (2.8-5.3) pg/ml Microbiology - Last 24 Hours (Table) 02/15/17 12:00 Blood Culture - Preliminary Blood No Growth after 24 hours Assessment and Plan (1) Acute ischemic left MCA stroke Status: Acute Code(s): I63.512 - CEREB INFRC D/T UNSP OCCLS OR STENOS OF LEFT MID CEREB ART (2) Acute encephalopathy Status: Acute Code(s): G93.40 - ENCEPHALOPATHY, UNSPECIFIED (3) UTI (urinary tract infection) Status: Acute Code(s): N39.0 - URINARY TRACT INFECTION, SITE NOT SPECIFIED (4) Cellulitis Status: Acute Code(s): L03.90 - CELLULITIS, UNSPECIFIED (5) Diabetes Status: Acute Code(s): E11.9 - TYPE 2 DIABETES MELLITUS WITHOUT COMPLICATIONS Plan: This patient is a 66-year-old female admitted to the intensive care unit after being found unresponsive at home. She underwent a computed tomography scan of the brain which revealed vague lucency in the left parietal lobe. Stroke could not be excluded. Patient remains obtunded in the ICU. She does not follow commands. She has had no verbal output as per the ICU nursing staff. Patient is slightly more awake today in the ICU. She was sent for MRI of the brain today the results of which are noted above. Patient has suffered bihemispheric stroke etiology undetermined. We have recommended a DIALLO procedure to be done by cardiology to rule out cardiac source of emboli. We will continue close neurological follow-up with this patient in the ICU. Complete laboratory testing for stroke assessment will also be done early tomorrow morning to include lipid panel and hemoglobin A1c level. Her overall prognosis at this time remains very guarded. Case was discussed today at length with the patient' s daughters who were at bedside. All of their questions were answered. They are aware of her very guarded condition at this time.
[2017-02-16 23:30] LABS: Cholesterol 168 mg/dL (<200); HDL Cholesterol 56 mg/dL (40-60)
--- NOTE | 2017-02-16 23:35 | CT ---
EXAM: CT Angiography Head With Intravenous Contrast CLINICAL HISTORY: Reason: Bilateral acute strokes. TECHNIQUE: Axial computed tomographic angiography images of the head with intravenous contrast using CT angiography protocol. CTDI is 6.5, 129.6, 12.2 mGy and DLP is 464.3 mGy-cm. This CT exam was performed using one or more of the following dose reduction techniques: automated exposure control, adjustment of the mA and/or kV according to patient size, and/or use of iterative reconstruction technique. MIP reconstructed images were created and reviewed. COMPARISON: CT head 02/15/2017 FINDINGS: Right internal carotid artery: Atherosclerotic narrowing of the cavernous and clinoid right internal carotid artery. Right anterior cerebral artery: Unremarkable. No occlusion or significant stenosis. No aneurysm. Right middle cerebral artery: Unremarkable. No occlusion or significant stenosis. No aneurysm. Right posterior cerebral artery: Unremarkable. No occlusion or significant stenosis. No aneurysm. Right vertebral artery: Unremarkable as visualized. Left internal carotid artery: Atherosclerotic narrowing of the cavernous and clinoid left internal carotid artery. Left anterior cerebral artery: Unremarkable. No occlusion or significant stenosis. No aneurysm. Left middle cerebral artery: Unremarkable. No occlusion or significant stenosis. No aneurysm. Left posterior cerebral artery: Unremarkable. No occlusion or significant stenosis. No aneurysm. Left vertebral artery: Unremarkable as visualized. Basilar artery: Unremarkable. No occlusion or significant stenosis. No aneurysm. IMPRESSION: No high-grade stenosis or occlusion EXAM: CT Angiography Neck With Intravenous Contrast CLINICAL HISTORY: Reason: Bilateral acute strokes. TECHNIQUE: Axial computed tomographic angiography images of the neck with intravenous contrast using CT angiography protocol. CTDI is 6.5, 129.6, 12.2 mGy and DLP is 464.3 mGy-cm. This CT exam was performed using one or more of the following dose reduction techniques: automated exposure control, adjustment of the mA and/or kV according to patient size, and/or use of iterative reconstruction technique. MIP reconstructed images were created and reviewed. COMPARISON: No relevant prior studies available. FINDINGS: VASCULATURE: Right common carotid artery: Unremarkable. No significant stenosis. No dissection or occlusion. Right internal carotid artery: Atherosclerosis of the right carotid bulb. No high-grade stenosis or occlusion. Right external carotid artery: Unremarkable. No occlusion. Right vertebral artery: Dominant right vertebral artery. No high- grade stenosis or occlusion. Left common carotid artery: Unremarkable. No significant stenosis. No dissection or occlusion. Left internal carotid artery: Atherosclerosis of the left carotid bulb. No high-grade stenosis or occlusion. Left external carotid artery: Unremarkable. No occlusion. Left vertebral artery: Diminutive left vertebral artery. No high- grade stenosis or occlusion. NECK: Bones/joints: No acute fracture. Soft tissues: Unremarkable as visualized. No mass. Tubes, lines and devices: An esophagogastric tube is noted. CAROTID STENOSIS REFERENCE USING NASCET CRITERIA: % ICA stenosis = (1 - narrowest ICA diameter/diameter of distal cervical ICA) x 100. Mild - <50% stenosis. Moderate - 50-69% stenosis. Severe - 70-94% stenosis. Near occlusion - 95-99% stenosis. Occluded - 100% stenosis. IMPRESSION: No high-grade stenosis or occlusion.
[2017-02-17 00:04] LABS: Glucose,Whole Blood 132 mg/dL (75-99)
[2017-02-17] MEDS: INSULIN LISPRO (humaLOG) 300 UNIT/3 ML VIAL SQ SCH ×6 (00:22→21:40)
[2017-02-17] MEDS: NITROGLYCERIN OINT 1 INCH/GM PACKET TOPICAL SCH ×3 (00:25→17:20)
[2017-02-17] MEDS: SODIUM CHLORIDE 0.9% 1,000 ML IV SCH ×4 (00:25→17:20)
[2017-02-17] MEDS: hydrALAZINE HCL 20 MG/ML 1 ML VIAL IVP PRN ×2 (00:25→11:11)
[2017-02-17 04:04] LABS: Glucose,Whole Blood 134 mg/dL (75-99)
[2017-02-17 04:57] LABS: CH 32.3; CHCM 32.6; HCT 43.4 % (34.0-46.0); HDW 2.36; HGB 14.7 gm/dL (11.4-16.0); MCH 33.7 pg (25.0-35.0); MCHC 33.8 g/dL (31.0-37.0); MCV 99.5 fL (80.0-100.0); Macrocytosis Slight; RBC 4.36 m/uL (3.80-5.40); RDW 15.2 % (11.5-15.5); WBC 7.3 k/uL (3.8-10.6)
[2017-02-17 05:09] LABS: Anion Gap 12 mmol/L; Blood Urea Nitrogen 13 mg/dL (7-17); Calcium 8.8 mg/dL (8.4-10.2); Carbon Dioxide 22 mmol/L (22-30); Chloride 108 mmol/L (98-107); Glucose 155 mg/dL (74-99); Magnesium 1.8 mg/dL (1.6-2.3); Non-African American GFR(MDRD) >60 (>60 ml/min/1.73 sqM); Phosphorous 2.9 mg/dL (2.5-4.5); Sodium 142 mmol/L (137-145)
[2017-02-17] MEDS: MAGNESIUM SULFATE-D5W PMX 1 GM in DEXTROSE/WATER 1 100ML.BAG IVPB SCH ×2 (06:00→09:35)
--- NOTE | 2017-02-17 06:29 | EEG ---
DATE OF SERVICE: 02/16/2017 ELECTROENCEPHALOGRAPHIC EXAMINATION REPORT INDICATION FOR EXAMINATION: This patient is a 66-year-old female being evaluated for altered mental status and lethargy. Age: 66. EEG FINDINGS: A routine 21 channel awake, digital EEG recording was accomplished utilizing the 10-20 international system with bipolar and referential montages. The background activity in the most alert, resting state consists of a low to medium amplitude, fairly well developed and well sustained 5-6 Hz activity over the posterior head regions. This posterior rhythm attenuates to eye opening. There is a small amount of low amplitude 18-20 Hz beta activity seen maximally over the anterior head regions. Muscle and movement artifact was observed on several occasions during the tracing. Hyperventilation was not performed. Photic stimulation at flash frequencies of 2 -30 Hz produced a minimal occipital driving response. No epileptiform discharges were seen. IMPRESSION: This EEG is moderately abnormal in a diffuse fashion due to slowing of the EEG background. The EEG failed to reveal any focal lateralized or epileptiform abnormalities. If clinically indicated, a follow-up EEG is recommended. Clinical correlation is recommended . TAVIA
--- NOTE | 2017-02-17 07:34 | XR ---
EXAMINATION TYPE: XR chest 1V portable DATE OF EXAM: 02/17/2017 HISTORY: shortness of breath. REFERENCE: Previous study dated 02/16/2017. FINDINGS: The patient is NG tube remains in place, unchanged in appearance. The heart is enlarged. There is mild vascular redistribution. There is no dominga edema at this time. No definite pleural flui d is seen. IMPRESSION: CARDIOMEGALY AND VASCULAR CONGESTION.
[2017-02-17] MEDS: IPRATROPIUM-ALBUTEROL 3 ML NEB INHALATION SCH ×3 (08:04→20:53)
[2017-02-17] MEDS ORDERED: BISACODYL 10 MG SUPP RECTAL STA (08:35)
[2017-02-17 08:39] LABS: Glucose,Whole Blood 153 mg/dL (75-99)
--- NOTE | 2017-02-17 09:02 | US ---
EXAMINATION TYPE: US carotid duplex BILAT DATE OF EXAM: 02/17/2017 COMPARISON: CLINICAL HISTORY: bilateral strokes.. poor historian. Suboptimal exam due to patient position EXAM MEASUREMENTS: RIGHT: Peak Systolic Velocity (PSV) cm/sec ----- Right CCA: 71.6 ----- Right ICA: 82.0 ----- Right ECA: 157.8 ICA/CCA ratio: 1.1 RIGHT: End Diastole cm/sec ----- Right CCA: 14.2 ----- Right ICA: 19.4 ----- Right ECA: 13.7 LEFT: Peak Systolic Velocity (PSV) cm/sec ----- Left CCA: 72.2 ----- Left ICA: 121.0 ----- Left ECA: 122.6 ICA/CCA ratio: 1.7 LEFT: End Diastole cm/sec ----- Left CCA: 13.9 ----- Left ICA: 40.2 ----- Left ECA: 0.0 VERTEBRALS (direction of flow): Right Vertebral: Antegrade Left Vertebral: Antegrade Elevated right ECA velocity. No significant stenosis observed. Plaque seen in bilateral CCA and bul bs. Bilateral wall thickening. IMPRESSION: 1. I DO NOT SEE EVIDENCE OF A HEMODYNAMICALLY SIGNIFICANT STENOSIS IN EITHER COMMON OR INTERNAL CAROT ID ARTERY. 2. ELEVATED FLOW VELOCITY, RIGHT ECA. Criteria for Assigning % of Stenosis / Diameter reduction (Estimation based on the indirect measurements of the internal carotid artery velocities (ICA PSV). 1. Normal (no stenosis)=ICA PSV < 125 cm/s: ratio < 2.0: ICA EDV<40 cm/s. 2. Less than 50% stenosis=ICA PSV < 125 cm/s: ratio < 2.0: ICA EDV<40 cm/s. 3. 50 to 69% stenosis=ICA PSV of 125 to 230 cm/s: ration 2.0 ? 4.0: ICA EDV 40-100 cm/s. 4. Greater than 70% stenosis to near occlusion= ICA PSV > 230 cm/s: ratio > 4.0: ICA EDV > 100 cm/s. 5. Near occlusion= ICA PSV velocities may be low or undetectable: variable ratio and ICA EDV. 6. Total occlusion=unable to detect flow.
[2017-02-17] MEDS: ENOXAPARIN 40 MG/0.4 ML SYRINGE SQ SCH (09:58)
[2017-02-17] MEDS: ESOMEPRAZOLE 20 MG in SODIUM CHLORIDE 0.9% 50 ML IVPB SCH (10:44)
--- NOTE | 2017-02-17 10:53 | PN ---
ICU NOTE DATE OF SERVICE: 02/16/2017 SUBJECTIVE: This is a 66-year-old white female who was admitted to the hospital with altered mental status in the hospital. A question was CVA. Apparently she is talking normal now. She is giving me appropriate answers like she does at home after having a day of unresponsiveness. She said someone placed an NG tube and had a lot of NG drainage, I suspect is a small bowel obstructive. CT of the chest showed normal PE. Echo showed left ventricular function. Mental status fluctuating. Possible pneumonia and also UTI. ASSESSMENT: Aspiration pneumonia and possible urinary tract infection and so far has been second to this and small bowel obstruction. I doubt she has a stroke at this time. PAST MEDICATION HISTORY: Diabetes mellitus, DVT, decubitus ulcers to the right heel, osteomyelitis for ( ), diabetic retinopathy, tib-fib fracture on the left. SOCIAL HISTORY: Current everyday smoker. No alcohol. No elicit drugs. ICU notes are reviewed. Consultations are reviewed. Cardiac enzymes are reviewed. ASSESSMENT: 1. Acute encephalopathy secondary to aspiration pneumonia and urinary tract infection. 2. Small bowel obstruction. 3. Urinary tract infection. 4. Altered mental status secondary to encephalopathy. I doubt CVA at this time. NG tube. Surgical consult. ICU TIME: 45 minutes. TAVIA
[2017-02-17 12:56] LABS: Glucose,Whole Blood 165 mg/dL (75-99)
--- NOTE | 2017-02-17 13:49 | P.PN ---
Subjective 02/15/17- This is a 58-year-old female to the ER for altered mental status. Patient was found by boyfriend today being unresponsive, EMS was called to patient's house, patient is unable to give history secondary to critical condition, history is obtained from EMS and the patient's chart. Patient and his boyfriend deny any drug or alcohol abuse. No known trauma history. The patient has been last seen yesterday before she went to bed. She is minimally arousable throughout the night and became unresponsive this morning then eventually brought into the emergency department she however is maintaining her airway and arterial blood gas has been reviewed hyperventilation oxygen is fairly adequate 02/16/17 upon examination today the patient is seen and examined in the intensive care unit. The patient's mentation has slightly improved she does respond to questions however sometimes not appropriately, continues to have intermittent confusion. Does recognize some of her children but not all of them. Patient continues on 2 L of supplemental oxygen via nasal cannula. Patient did require the inserts and of an NG tube overnight she has had approximately [address] Steele has been consult it, for possible bowel obstruction. Chest x-ray of the abdomen is negative patient is going for CT of the abdomen and pelvis this afternoon as well as the MRI of the brain. Of note earlier today the patient did have a bradycardic episode in the 30s and spontaneously came out of it to a normal sinus rhythm. Family at bedside and have been updated on the patient's current condition and the plan of care at length all questions have been answered. Chest x-ray and echo have been reviewed as well as today's labs. 02/17/17 patient is being seen examined and evaluated on rounds and the intensive care unit today. Patient's mentation has remained the same overnight continues with intermittent confusion. Infectious disease was put on consult for UTI. MRI of the brain was completed yesterday and shows multifocal predominantly cortical areas of subacute ischemia. CTA of the head shows no high-grade stenosis or occlusion. CT of the abdomen and pelvis was negative at this time. Patient underwent a Doppler of her carotids this morning which reveals no evidence of a hemodynamically significant stenosis in either common or internal carotid artery, elevated flow velocity, right ECA. Venous Doppler studies are pending. She is scheduled to have a DIALLO today as well. Objective - Vital Signs Vital signs: Vital Signs Temp 98.0 F 07/28/17 08:00 Pulse 78 02/17/17 13:00 Resp 18 02/17/17 13:00 BP 170/57 02/17/17 13:00 Pulse Ox 98 02/17/17 13:00 Intake & Output 02/16/17 02/17/17 02/17/17 18:59 06:59 18:59 Intake Total 1200 1400 500 Output Total 1560 1115 195 Balance -360 285 305 Weight 117.2 kg 117.2 kg Intake: IV 1200 1400 500 Magnesium Sulfate-D5w Pmx 100 1 gm In Dextrose/Water 1 100ml.bag @ 100 mls/hr IVPB Q1H BONNY Rx#: [id number] Sodium Chloride 0.9% 1, 1200 1300 500 000 ml @ 100 mls/hr IV . Q10H BONNY Rx#:[id number] Output: Gastric Drainage 900 Urine 660 615 195 Emesis 500 Other: Voiding Method Indwelling Catheter Indwelling Catheter Indwelling Catheter # Bowel Movements 0 1 - Exam GENERAL EXAM: Alert, intermittent confusion, comfortable in no apparent distress. HEAD: Normocephalic. EYES: Normal reaction of pupils, equal size. NOSE: Clear with pink turbinates. THROAT: No erythema or exudates. NECK: No masses, no JVD. CHEST: No chest wall deformity. LUNGS: Equal air entry slightly coarse with no crackles, wheeze, rhonchi or dullness. CVS: S1 and S2 normal with no audible mumurs, regular rhythm. ABDOMEN: No hepatosplenomegaly, hypoactive bowel sounds, no guarding or rigidity. EXTREMITIES: No edema noted, pedal pulses palpable. SKIN: No rashes CENTRAL NERVOUS SYSTEM: No focal deficits, tone is normal in all 4 extremities. Speech is a phasic with intermittent confusion. - Labs CBC & Chem 7: 02/17/17 04:30 02/17/17 04:30 Labs: Abnormal Lab Results - Last 24 Hours (Table) 02/16/17 02/16/17 02/17/17 Range/Units 16:58 20:24 00:03 Plt Count (150-450) k/uL Chloride (98-107) mmol/L Glucose (74-99) mg/dL POC Glucose (mg/dL) 162 H 166 H 132 H (75-99) mg/dL 02/17/17 02/17/17 02/17/17 Range/Units 04:02 04:30 04:30 Plt Count 119 L (150-450) k/uL Chloride 108 H (98-107) mmol/L Glucose 155 H (74-99) mg/dL POC Glucose (mg/dL) 134 H (75-99) mg/dL 02/17/17 02/17/17 Range/Units 08:36 12:54 Plt Count (150-450) k/uL Chloride (98-107) mmol/L Glucose (74-99) mg/dL POC Glucose (mg/dL) 153 H 165 H (75-99) mg/dL Microbiology - Last 24 Hours (Table) 02/15/17 12:00 Blood Culture - Preliminary Blood No Growth after 24 hours Assessment and Plan Plan: Assessment Hypertensive urgency on admission, improved Acute hypoxic respiratory failure on admission, slowly improving with supplemental oxygen and breathing treatments Acute ischemic left MCA stroke, Acute encephalopathy altered mental status Right upper lobe pneumonia probable aspiration Urinary tract infection Possible bowel obstruction versus gastroparesis related to uncontrolled diabetes mellitus Elevated troponins possibly related to non-ST segment elevated CO Plan Patient should remain in the ICU today. Medications have been reviewed and will be continued as ordered. Patient is currently undergoing a IDALLO. MRI and CT results have been reviewed. Carotid Doppler has been reviewed. Chest x-ray reviewed Echocardiogram reviewed ejection fraction between 55 and 60%. No evidence of pulmonary hypertension. Continue with pulmonary hygiene, coughing and deep breathing exercises, and supportive care. Supplemental oxygen to maintain oxygen saturations of 92% or better. Add nebulizer treatments. GI and DVT prophylaxis. We will continue to monitor labs/results and adjust treatment as necessary. Further recommendations pending. I performed an examination of the patient and discussed their management with the nurse practitioner. I have reviewed the nurse practitioner's note and agree with the documented findings and plan of care.
--- NOTE | 2017-02-17 13:55 | US ---
EXAMINATION TYPE: US venous doppler duplex LE DATE OF EXAM: 02/17/2017 1:32 PM COMPARISON: CLINICAL HISTORY: rule out dvt. Poor historian. Hx of dvt in right popliteal vein SIDE PERFORMED: Bilateral TECHNIQUE: The lower extremity deep venous system is examined utilizing real time linear array sonog lucero with graded compression, doppler sonography and color-flow sonography. VESSELS IMAGED: External Iliac Vein (EIV) Common Femoral Vein Deep Femoral Vein Greater Saphenous Vein * Femoral Vein Popliteal Vein Small Saphenous Vein * Proximal Calf Veins (* superficial vessels) No popliteal fossa lesion is seen. Right Leg: Appears negative for DVT Left Leg: Appears negative for DVT IMPRESSION: THIS EXAMINATION IS NEGATIVE FOR DVT IN BOTH LEGS.
[2017-02-17] MEDS ORDERED: PROPOFOL 10 MG/ML 20 ML VIAL IV ONE (14:00)
--- NOTE | 2017-02-17 15:06 | P.PCN ---
Date of Procedure: 02/17/17 Preoperative Diagnosis: On explained CVA Postoperative Diagnosis: No Cardec source of emboli Procedure(s) Performed: DIALLO Implants: Indications for Procedure: Operative Findings: Description of Procedure: INDICATION: Indication Cardec source of emboli. Patient has an CVA CONSENT: Verbal consent was obtained from the family PROCEDURE: . Patient was was in intensive care unit. The procedure well and bedside. Patient was given IV sedation by department of anesthesia. A lubricated Omni and probe was introduced in the oropharynx and was advanced into the esophagus and stomach. Multiple views were obtained. Patient tolerated the procedure well. 2-D M-mode and color Doppler study was performed. Saline contrast bubble injection was also performed. FINDINGS: . The aortic valve appeared to be normal with trace regurgitation. Mitral valve appeared to be normal. Tricuspid valve is suboptimally viewed and appears to be normal. There appears to be left atrial enlargement. Left ventricle shows mild hypertrophy with preserved LV function. Left atrial appendage is free of any clot. There is no shunt across the interatrial septum. Contrast saline bubble injection did not reveal any signs of crossing of the bubbles across the septum. The aorta showed mild plaque. The IMPRESSION: No. Cardec source of emboli PLAN: . Continued use of other source of embolic events. May continue with anti-coagulation therapy
--- NOTE | 2017-02-17 16:04 | P.PN ---
Subjective Principal diagnosis: Ileus The patient is seen on rounds. She is had no pain, nausea, vomiting. No flatus. No bowel movement since admission. Objective - Vital Signs Vital signs: Vital Signs Temp 97.2 F L 02/17/17 12:28 Pulse 76 02/17/17 15:47 Resp 15 02/17/17 15:47 BP 156/56 02/17/17 15:47 Pulse Ox 98 02/17/17 15:47 Intake & Output 02/16/17 02/17/17 02/17/17 18:59 06:59 18:59 Intake Total 1200 1400 700 Output Total 1560 1115 255 Balance -360 285 445 Weight 117.2 kg 117.2 kg Intake: IV 1200 1400 700 Magnesium Sulfate-D5w Pmx 100 1 gm In Dextrose/Water 1 100ml.bag @ 100 mls/hr IVPB Q1H [facility] Rx#: [id number] Sodium Chloride 0.9% 1, 1200 1300 700 000 ml @ 100 mls/hr IV . Q10H BONNY Rx#:[id number] Output: Gastric Drainage 900 Urine 660 615 255 Emesis 500 Other: Voiding Method Indwelling Catheter Indwelling Catheter Indwelling Catheter # Bowel Movements 0 1 - Constitutional General appearance: Present: cooperative, no acute distress - Respiratory Respiratory: bilateral: CTA - Gastrointestinal General gastrointestinal: Present: normal bowel sounds, soft. Absent: tenderness - Labs CBC & Chem 7: 02/17/17 04:30 02/17/17 04:30 Labs: Abnormal Lab Results - Last 24 Hours (Table) 02/16/17 02/16/17 02/17/17 Range/Units 16:58 20:24 00:03 Plt Count (150-450) k/uL Chloride (98-107) mmol/L Glucose (74-99) mg/dL POC Glucose (mg/dL) 162 H 166 H 132 H (75-99) mg/dL 02/17/17 02/17/17 02/17/17 Range/Units 04:02 04:30 04:30 Plt Count 119 L (150-450) k/uL Chloride 108 H (98-107) mmol/L Glucose 155 H (74-99) mg/dL POC Glucose (mg/dL) 134 H (75-99) mg/dL 02/17/17 02/17/17 Range/Units 08:36 12:54 Plt Count (150-450) k/uL Chloride (98-107) mmol/L Glucose (74-99) mg/dL POC Glucose (mg/dL) 153 H 165 H (75-99) mg/dL Microbiology - Last 24 Hours (Table) 02/15/17 12:00 Blood Culture - Preliminary Blood No Growth after 48 hours Assessment and Plan (1) Ileus Status: Acute Plan: This is likely mild ileus related to her other issues. Give her a suppository to stimulate the bowel function. Currently nonsurgical.
[2017-02-17 16:22] LABS: Glucose,Whole Blood 141 mg/dL (75-99)
--- NOTE | 2017-02-17 17:10 | PN ---
DATE OF SERVICE: 02/17/2017 REASON FOR FOLLOWUP: Urinary tract infection. INTERVAL HISTORY: The patient is afebrile. She is hemodynamically stable, not on any pressor support. The patient did have an NG. No nausea or vomiting has been noticed. The patient remains lethargic, unable to provide any history. On examination, blood pressure 154/88 with a pulse of 67, temperature 98. She is 97% on room air. General description is an elderly female lying in bed in no distress. RESPIRATORY SYSTEM: Unlabored breathing. Clear to auscultation anteriorly. HEART: S1, S2. Regular rate and rhythm. ABDOMEN: Soft. Slightly distended. No guarding or rigidity. LABS: Hemoglobin is 14.7, white count 7.3 with a BUN of 13, creatinine 0.60. Blood culture so far negative. Urine culture not done. DIAGNOSTIC IMPRESSION AND PLAN: Patient with mental status changes being worked up for a CVA, possible ileus with a significantly positive UA and underlying UTI from enteric Gram-negative not entirely excluded. Patient is currently on Rocephin. That will be continued. Unfortunately no urine cultures were done initially. Will get a urine culture now. Continue supportive care. [facility]
[2017-02-17] MEDS ORDERED: FUROSEMIDE 10 MG/ML 4 ML VIAL IV STA (19:06)
--- NOTE | 2017-02-17 21:19 | PN ---
DATE OF SERVICE: 02/17/2017 Ms. Escobar was admitted for increased obtundation of unclear etiology. She was talking, answering appropriately yesterday. She had an NG tube and she was getting lots of NG tube drainage yesterday. She is being treated for a urinary tract infection, possible aspiration pneumonia. MRI shows multi-focal, predominantly cortical areas of subacute ischemia. CTA shows no occlusion. She had DIALLO that showed no signs of cardiac emboli. Carotid artery test was negative. As mentioned, she is being treated more for a small bowel obstruction than anything else. I did not see any neuro deficits yesterday. VITAL SIGNS: Stable. GI: Distended. No hepatosplenomegaly. CARDIOVASCULAR: S1, S2. Lungs are fair. CHEST: No chest wall deformity. EXTREMITIES: No cyanosis, clubbing, edema. SKIN: No rashes. 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 White count normal. Hemoglobin 14.7. Sodium 142. Potassium 4.0. ASSESSMENT: 1. Hypertensive urgency, improved. 2. Acute hypoxemic respiratory failure. 3. Possible cerebrovascular accident. 4. Acute encephalopathy secondary to urinary tract infection and right upper lobe pneumonia is most likely ( ). 5. Possible bowel obstruction versus gastroparesis. NG tube remains in place. 6. Elevated troponins, unclear etiology. PLAN: Medications were reviewed. DIALLO report is reviewed. MRI reviewed. Ejection fraction is normal. No pulmonary hypertension. Maintain oxygen. Treatment for pneumonia and UTI and bowel obstruction. ICU time 40 minutes. MTDD
[2017-02-17 21:38] LABS: Glucose,Whole Blood 157 mg/dL (75-99)
[2017-02-17 23:43] LABS: Glucose,Whole Blood 143 mg/dL (75-99)
[2017-02-18] MEDS: INSULIN LISPRO (humaLOG) 300 UNIT/3 ML VIAL SQ SCH ×6 (00:50→21:38)
[2017-02-18] MEDS: NITROGLYCERIN OINT 1 INCH/GM PACKET TOPICAL SCH ×3 (00:50→17:17)
[2017-02-18 03:53] LABS: Glucose,Whole Blood 132 mg/dL (75-99)
[2017-02-18 05:18] LABS: CHCM 32.5; HCT 44.5 % (34.0-46.0); HDW 2.35; HGB 14.6 gm/dL (11.4-16.0); MCH 32.4 pg (25.0-35.0); MCHC 32.8 g/dL (31.0-37.0); MCV 98.8 fL (80.0-100.0); Mean Platelet Volume 9.2; RBC 4.51 m/uL (3.80-5.40); RDW 14.4 % (11.5-15.5); WBC 7.7 k/uL (3.8-10.6)
[2017-02-18 05:39] LABS: Anion Gap 11 mmol/L; Blood Urea Nitrogen 16 mg/dL (7-17); Calcium 8.6 mg/dL (8.4-10.2); Carbon Dioxide 25 mmol/L (22-30); Chloride 105 mmol/L (98-107); Glucose 147 mg/dL (74-99); Magnesium 2.1 mg/dL (1.6-2.3); Non-African American GFR(MDRD) >60 (>60 ml/min/1.73 sqM); Phosphorous 3.4 mg/dL (2.5-4.5); Potassium 3.8 mmol/L (3.5-5.1); Sodium 141 mmol/L (137-145)
[2017-02-18] MEDS ORDERED: Potassium Replacement Protocol 1 EACH MISC MISCELLANE PRN (06:25)
[2017-02-18] MEDS ORDERED: POTASSIUM CHLORIDE ORAL LIQUID 40 MEQ/30 ML CUP NG-TUBE SCH (07:00)
--- NOTE | 2017-02-18 07:35 | XR ---
EXAMINATION TYPE: XR chest 1V DATE OF EXAM: 02/18/2017 COMPARISON: Prior chest x-ray 02/17/2017 HISTORY: Shortness of breath TECHNIQUE: Single frontal view of the chest is obtained. FINDINGS: The heart remains enlarged. Interstitium is prominent. There are overlying cardiac leads. NG tube is in place. No pneumothorax or pleural effusion. IMPRESSION: Similar to previous exam. Cardiomegaly. There may be interstitial lung disease, follow-u p suggested, correlate for possible volume overload, pulmonary venous hypertension and interstitial e lizabeth.
[2017-02-18] MEDS: IPRATROPIUM-ALBUTEROL 3 ML NEB INHALATION SCH ×3 (07:45→20:15)
[2017-02-18 08:13] LABS: Glucose,Whole Blood 168 mg/dL (75-99)
[2017-02-18] MEDS: ESOMEPRAZOLE 20 MG in SODIUM CHLORIDE 0.9% 50 ML IVPB SCH (10:08)
[2017-02-18] MEDS: FUROSEMIDE 10 MG/ML 4 ML VIAL IV SCH (10:09)
[2017-02-18] MEDS: ENOXAPARIN 40 MG/0.4 ML SYRINGE SQ SCH (10:09)
--- NOTE | 2017-02-18 12:00 | P.PN ---
Progress Note - Text The patient has had a bowel movement. She's having expected amount of NG tube output. Denies any abdominal pain. Abdomen: Soft, positive bowel sounds, nontender Assessment: Ileus, this appears to be resolving Plan: We'll clamp the NG tube 6 hours. If she is able to tolerated it will be discontinued later today. We'll then initiate some clear liquids with close observation make sure she is not aspirating. If it appears she is doing something like that then we will order speech pathology.
--- NOTE | 2017-02-18 12:09 | P.PN ---
Subjective Principal diagnosis: 02/15/17- This is a 58-year-old female to the ER for altered mental status. Patient was found by boyfriend today being unresponsive, EMS was called to patient's house, patient is unable to give history secondary to critical condition, history is obtained from EMS and the patient's chart. Patient and his boyfriend deny any drug or alcohol abuse. No known trauma history. The patient has been last seen yesterday before she went to bed. She is minimally arousable throughout the night and became unresponsive this morning then eventually brought into the emergency department she however is maintaining her airway and arterial blood gas has been reviewed hyperventilation oxygen is fairly adequate 02/16/17 upon examination today the patient is seen and examined in the intensive care unit. The patient's mentation has slightly improved she does respond to questions however sometimes not appropriately, continues to have intermittent confusion. Does recognize some of her children but not all of them. Patient continues on 2 L of supplemental oxygen via nasal cannula. Patient did require the inserts and of an NG tube overnight she has had approximately [address] Steele has been consult it, for possible bowel obstruction. Chest x-ray of the abdomen is negative patient is going for CT of the abdomen and pelvis this afternoon as well as the MRI of the brain. Of note earlier today the patient did have a bradycardic episode in the 30s and spontaneously came out of it to a normal sinus rhythm. Family at bedside and have been updated on the patient's current condition and the plan of care at length all questions have been answered. Chest x-ray and echo have been reviewed as well as today's labs. 02/17/17 patient is being seen examined and evaluated on rounds and the intensive care unit today. Patient's mentation has remained the same overnight continues with intermittent confusion. Infectious disease was put on consult for UTI. MRI of the brain was completed yesterday and shows multifocal predominantly cortical areas of subacute ischemia. CTA of the head shows no high-grade stenosis or occlusion. CT of the abdomen and pelvis was negative at this time. Patient underwent a Doppler of her carotids this morning which reveals no evidence of a hemodynamically significant stenosis in either common or internal carotid artery, elevated flow velocity, right ECA. Venous Doppler studies are pending. She is scheduled to have a DIALLO today as well. 7/29/17, patient seen and evaluated and examined mental status has improved significantly as she does able to respond to simple verbal stimuli given presence of blindness however limits her ability to respond, her OG tube is being clamped and likely to be discontinued later on today besides having borderline hypertension she is relatively more hemodynamically stable, she remains on supplemental oxygen Objective - Vital Signs Vital signs: Vital Signs Temp 98.7 F 02/18/17 08:00 Pulse 61 02/18/17 10:00 Resp 11 L 02/18/17 10:00 BP 174/72 02/18/17 10:00 Pulse Ox 97 02/18/17 10:00 Intake & Output 02/17/17 02/18/17 02/18/17 18:59 06:59 18:59 Intake Total 920 240 80 Output Total 355 1755 135 Balance 565 -3565 -55 Weight 117.2 kg 117 kg Intake: IV 920 40 80 Sodium Chloride 0.9% 1, 920 000 ml @ 100 mls/hr IV . Q10H B[facility] Rx#:[id number] Sodium Chloride 0.9% 1, 40 80 000 ml @ 20 mls/hr IV . Q24H [facility] Rx#:[id number] Intake, IV Titration 200 Amount Sodium Chloride 0.9% 1, 200 000 ml @ 20 mls/hr IV . Q24H [facility] Rx#:[id number] Output: Gastric Drainage 300 Urine 355 1455 135 Other: Voiding Method Indwelling Catheter Indwelling Catheter # Bowel Movements 1 GENERAL EXAM: more alertAlert, intermittent confusion, comfortable in no apparent distress. HEAD: Normocephalic. EYES: Normal reaction of pupils, equal size. NOSE: Clear with pink turbinates. THROAT: No erythema or exudates. NECK: No masses, no JVD. CHEST: No chest wall deformity. LUNGS: Equal air entry slightly coarse with no crackles, wheeze, rhonchi or dullness. CVS: S1 and S2 normal with no audible mumurs, regular rhythm. ABDOMEN: No hepatosplenomegaly, hypoactive bowel sounds, no guarding or rigidity. EXTREMITIES: No edema noted, pedal pulses palpable. SKIN: No rashes CENTRAL NERVOUS SYSTEM: No focal deficits, tone is normal in all 4 extremities. Speech is a phasic with intermittent confusion, with slow response. - Labs CBC & Chem 7: 02/18/17 04:40 02/18/17 04:40 Labs: Abnormal Lab Results - Last 24 Hours (Table) 02/17/17 02/17/17 02/17/17 Range/Units 12:54 16:19 21:37 Plt Count (150-450) k/uL Glucose (74-99) mg/dL POC Glucose (mg/dL) 165 H 141 H 157 H (75-99) mg/dL 02/17/17 02/18/17 02/18/17 Range/Units 23:41 03:46 04:40 Plt Count 106 L (150-450) k/uL Glucose (74-99) mg/dL POC Glucose (mg/dL) 143 H 132 H (75-99) mg/dL 02/18/17 02/18/17 Range/Units 04:40 08:12 Plt Count (150-450) k/uL Glucose 147 H (74-99) mg/dL POC Glucose (mg/dL) 168 H (75-99) mg/dL Microbiology - Last 24 Hours (Table) 02/15/17 12:00 Blood Culture - Preliminary Blood No Growth after 48 hours Assessment and Plan Plan: Hypertensive urgency on admission, improved Acute hypoxic respiratory failure on admission, slowly improving with supplemental oxygen and breathing treatments, patient will likely require sleep studies and further evaluation in that regard probableAcute ischemic left MCA stroke, Acute encephalopathy altered mental status, related to above and multifactorial process Right upper lobe pneumonia probable aspiration Urinary tract infection Possible bowel obstruction versus gastroparesis related to uncontrolled diabetes mellitus Elevated troponins possibly related to non-ST segment elevated MN Plan Patient can be moved out of the ICU. Medications have been reviewed and will be continued as ordered. Patient is status post DIALLO. MRI and CT results have been reviewed. Carotid Doppler has been reviewed. Chest x-ray reviewed Echocardiogram reviewed ejection fraction between 55 and 60%. No evidence of pulmonary hypertension. Continue with pulmonary hygiene, coughing and deep breathing exercises, and supportive care. Supplemental oxygen to maintain oxygen saturations of 92% or better. Add nebulizer treatments. GI and DVT prophylaxis. We will continue to monitor labs/results and adjust treatment as necessary. Further recommendations pending. Time with Patient: Greater than 30
[2017-02-18 12:48] LABS: Glucose,Whole Blood 145 mg/dL (75-99)
--- NOTE | 2017-02-18 12:53 | PN ---
SUBJECTIVE: This is a 66-year-old white female remains in ICU, possibly be transferred out of unit today as she is alert and oriented x3. She is speaking normally. Her vision is good. Her MRI of her brain shows ischemic changes, but no occipital stroke. No symptoms of an occipital stroke anyway, but she has UTI with ileus. NG tube is still in place. She is still having a large amount of NG tube fluid out. She did have a large bowel movement today though. Her carotid is normal. Her echo is normal. Her DIALLO is normal. She is suppose to have CTA today, but I expect that to be normal too. Her A1c is 6.8. She is on Apresoline p.r.n. for blood pressure. Lasix for diastolic CHF. Rocephin for urinary tract infection. Nitro-Bid ointment, insulin per protocol. Medically, she is stabilizing except for the ileus and NG tube. Temp is 98.7, pulse 60 to 67, respiratory rate 10 to 15, blood pressure 150s to 170s over 59 to 86 diastolic. O2 is 97% 2 L. CARDIOVASCULAR: S1 and S2. LUNGS: Transmitted upper airway sounds. GI: Distended. Increased bowel sounds. HEMATOLOGY: Negative Homans. PSYCH: Fair mood affect. VASCULAR: Normal dorsalis pedis pulses, tibial and radial pulses. ASSESSMENT: 1. Diastolic congestive heart failure. 2. Ileus. 3. Urinary tract infection with ileus. 4. Metabolic encephalopathy. 5. Occipital ischemia. PLAN: Continue with current treatments. Blood pressure control. ( ). Continue with NG tube for now. Follow up in the next 24 to 48 hours. Transfer to [facility] care. Monitor sugar levels. ICU 30 minutes. MTDD
--- NOTE | 2017-02-18 13:11 | MR ---
EXAMINATION TYPE: MR angio head wo/neck wo/w con DATE OF EXAM: 02/18/2017 COMPARISON: Carotid Doppler duplex 02/17/2017, CT angiogram of the head and neck 02/16/2017 HISTORY: Patient with multifocal strokes, r/o credit underwriter angitis TECHNIQUE: Time of flight images focusing on the [place] were performed without contrast.. 2-D and 3-D postprocessing imaging is performed. [id number] and pre and postcontrast images obtai rosy through the neck, three-dimensional reconstructions performed. FINDINGS: [place] brain: Anterior and posterior circulations are intact. No evident aneurysm , vascular malformation, or dissection. Right vertebral artery is dominant. Atheromatous changes are present within the carotid siphons bilaterally. IMPRESSION: [place] shows patent anterior and posterior circulation. Cerebral vascular disea se. Carotid neck MRA: Carotid arteries are patent bilaterally. Common carotid, internal and external carotid arteries are p atent. There is a kink involving the left proximal internal carotid artery. Internal carotid artery o n the right also shows a kink. No evidence stenosis. Right vertebral artery is dominant. Subclavian a rteries, innominate artery are patent. Transverse aorta is patent. There is a two-vessel arch. No dominique dent dissection. Impression: no significant stenosis. Atheromatous changes, there is tortuosity present within the int ernal carotid arteries.
[2017-02-18 16:52] LABS: Glucose,Whole Blood 150 mg/dL (75-99)
[2017-02-18] MEDS: SODIUM CHLORIDE 0.9% 1,000 ML IV SCH (17:14)
--- NOTE | 2017-02-18 18:47 | P.PN ---
Subjective This patient is a 66 year old female seen in the ICU today for evaluation of altered mental status and confusion. The patient was seen on consultation yesterday in the ICU after she was found unresponsive at home. Boyfriend had brought her to the emergency room for further evaluation as he could not arouse her. Patient underwent an initial computed tomography scan of the brain which revealed a lucency in the left parietal lobe. She was subsequently admitted to the intensive care unit where she was seen on neurology consultation yesterday. Patient appeared to have evidence of encephalopathy. She was nonverbal. She was sent for MRI of the brain today. MRI reveals multifocal areas of acute cortical infarct. This suggests possibility of embolic stroke phenomenona. Some history was obtained today by to the patient's daughter at bedside in the ICU. Apparently they have also noted today that she is slightly more responsive but still has difficulty with her vision. We reviewed the results of the MRI today in detail with both of the daughters at bedside. She does have evidence of multiple strokes involving both hemispheres of the brain including the occipital lobe. She may have some visual impairment due to this occipital infarct. The patient continues to demonstrate gaze deviation to the right as she did yesterday. We are recommending a cardiology consultation for possible DIALLO procedure for this patient. DIALLO was completed today and is reported negative for any evidence of atrial thrombus or PFO. We'll await further recommendations from cardiology. She did undergo EEG testing today which was reviewed. EEG reveals moderate slowing. We would also recommend a CT angiogram of the head and neck be done to further evaluate for vascular occlusive disease especially intracranial producing these multiple infarcts. CTA angiogram of the head and neck was completed today. These tests have come back negative for any evidence of high-grade stenosis or occlusion. We have recommended a hematology consultation for a hypercoagulable workup in this patient with cryptogenic stroke. We will obtain a MRA of the vertebrals and carotids for further evaluation. MR angiogram of the head and neck was completed today. Impression is normal [place] with both anterior and posterior circulation. Cervical vascular disease was noted. MRA of the carotids indicated no significant stenosis. Atheromatous changes were noted with tortuosity present in the internal carotid arteries. These findings are not consistent with SUPERVISOR WOUND vasculitis or fibromuscular dysplasia. Given the extent of her bilateral strokes the exact etiology still remains unclear. We' re waiting further evaluation from Dr. Paulina and a hematology assessment for hypercoagulable state as a cause for stroke in this patient. We will continue close neurological follow-up of this patient. Her overall prognosis at this time remains very guarded. We discussed all of her neurological exam findings and test results in detail with both of her daughters at bedside. All of their questions were answered. They are aware of their mother's guarded condition. Objective - Vital Signs Vital signs: Vital Signs Temp 97.8 F 02/18/17 16:00 Pulse 68 02/18/17 17:00 Resp 36 H 02/18/17 17:00 BP 171/61 02/18/17 17:00 Pulse Ox 98 02/18/17 17:00 Intake & Output 02/17/17 02/18/17 02/18/17 18:59 06:59 18:59 Intake Total 920 240 320 Output Total 355 1755 1310 Balance 112 -2025 -811 Weight 117.2 kg 117 kg Intake: IV 920 40 220 Sodium Chloride 0.9% 1, 920 000 ml @ 100 mls/hr IV . Q10H [facility] Rx#:[id number] Sodium Chloride 0.9% 1, 40 220 000 ml @ 20 mls/hr IV . Q24H [facility] Rx#:[id number] Intake, IV Titration 200 100 Amount Sodium Chloride 0.9% 1, 200 000 ml @ 20 mls/hr IV . Q24H [facility] Rx#:[id number] cefTRIAXone 2,000 mg In 100 Sodium Chloride 0.9% 100 ml @ 100 mls/hr IVPB ONCE STA Rx#:[id number] Output: Gastric Drainage 300 Urine 355 1455 1310 Other: Voiding Method Indwelling Catheter Indwelling Catheter Indwelling Catheter # Bowel Movements 1 - Exam Physical examination: PHYSICAL EXAMINATION: Patient is resting comfortably in bed. VITAL SIGNS: Blood pressure is [171/61]. Heart rate is [68]. Respiration is [18] . Temperature is [97.8]. HEENT: Head is atraumatic, neck is supple, there were no carotid bruits. CHEST: Lungs are clear to auscultation and percussion. CARDIAC: S1, S2 normal rate and rhythm. There is no murmur. ABDOMEN: Soft and nontender. Bowel sounds are present. EXTREMITIES: There is no pedal edema. Peripheral pulses are present. Neurological examination: Patient is slightly more awake today in the intensive care unit. Her speech is slightly aphasic. Her memory and intellectual functions are impaired. She has no focal motor deficit on examination. Deep tendon reflexes are symmetric 1+. She is showing more weakness in her left upper extremity as well as facial droop. Plantar responses flexor bilaterally. - Labs CBC & Chem 7: 02/18/17 04:40 02/18/17 17:38 Labs: Abnormal Lab Results - Last 24 Hours (Table) 02/17/17 02/17/17 02/18/17 Range/Units 21:37 23:41 03:46 Plt Count (150-450) k/uL Glucose (74-99) mg/dL POC Glucose (mg/dL) 157 H 143 H 132 H (75-99) mg/dL 02/18/17 02/18/17 02/18/17 Range/Units 04:40 04:40 08:12 Plt Count 106 L (150-450) k/uL Glucose 147 H (74-99) mg/dL POC Glucose (mg/dL) 168 H (75-99) mg/dL 02/18/17 02/18/17 Range/Units 12:47 16:50 Plt Count (150-450) k/uL Glucose (74-99) mg/dL POC Glucose (mg/dL) 145 H 150 H (75-99) mg/dL Microbiology - Last 24 Hours (Table) 02/15/17 12:00 Blood Culture - Preliminary Blood No Growth after 72 hours Assessment and Plan (1) Acute ischemic left MCA stroke Status: Acute Code(s): I63.512 - CEREB INFRC D/T UNSP OCCLS OR STENOS OF LEFT MID CEREB ART (2) Acute encephalopathy Status: Acute Code(s): G93.40 - ENCEPHALOPATHY, UNSPECIFIED (3) UTI (urinary tract infection) Status: Acute Code(s): N39.0 - URINARY TRACT INFECTION, SITE NOT SPECIFIED (4) Cellulitis Status: Acute Code(s): L03.90 - CELLULITIS, UNSPECIFIED (5) Diabetes Status: Acute Code(s): E11.9 - TYPE 2 DIABETES MELLITUS WITHOUT COMPLICATIONS Plan: This patient is a 66-year-old female admitted to the intensive care unit after being found unresponsive at home. She underwent a computed tomography scan of the brain which revealed vague lucency in the left parietal lobe. Stroke could not be excluded. Patient remains obtunded in the ICU. She does not follow commands. She has had no verbal output as per the ICU nursing staff. Patient is slightly more awake today in the ICU. She was sent for MRI of the brain today the results of which are noted above. Patient has suffered bihemispheric stroke etiology undetermined. We have recommended a DIALLO procedure to be done by cardiology to rule out cardiac source of emboli. DIALLO was completed today and is reported negative for any evidence of atrial thrombus or PFO. Patient appears to have evidence for cryptogenic stroke. We have recommended a hematology consultation for further workup of hypercoagulable state in this patient. Would also recommend MRA of the vertebrals and carotid arteries for further assessment given the unclear etiology of her multifocal strokes. Patient did undergo MRA of the [place] and carotids the results which are noted above. Both studies seem to be negative for any occlusive disease. We are waiting Dr. Gallardo to evaluate this patient for hypercoagulable state. Differential diagnosis would also include possibility of posterior reversible encephalopathy syndrome. We will continue close neurological follow-up with this patient in the ICU. Complete laboratory testing for stroke assessment will also be done early tomorrow morning to include lipid panel and hemoglobin A1c level. Her overall prognosis at this time remains very guarded. Case was discussed today at length with the patient's daughters who were at bedside yesterday. They are aware for guarded condition. All of their questions were answered. We will continue close neurological follow-up for this patient in the intensive care unit. Patient will likely need subacute rehab at the time of discharge. Her overall prognosis at this time remains very guarded.
[2017-02-18 20:38] LABS: Glucose,Whole Blood 136 mg/dL (75-99)
[2017-02-18] MEDS: hydrALAZINE HCL 20 MG/ML 1 ML VIAL IVP PRN (21:38)
[2017-02-19 00:04] LABS: Glucose,Whole Blood 141 mg/dL (75-99)
[2017-02-19] MEDS: INSULIN LISPRO (humaLOG) 300 UNIT/3 ML VIAL SQ SCH ×7 (00:07→21:16)
[2017-02-19] MEDS: NITROGLYCERIN OINT 1 INCH/GM PACKET TOPICAL SCH ×4 (00:07→23:32)
[2017-02-19] MEDS: hydrALAZINE HCL 20 MG/ML 1 ML VIAL IVP PRN ×2 (01:29→06:13)
[2017-02-19 04:45] LABS: CH 32.2; CHCM 31.9; HCT 49.2 % (34.0-46.0); HDW 2.32; HGB 15.4 gm/dL (11.4-16.0); MCH 31.7 pg (25.0-35.0); MCHC 31.3 g/dL (31.0-37.0); MCV 101.2 fL (80.0-100.0); Macrocytosis Slight; Mean Platelet Volume 9.2; RBC 4.86 m/uL (3.80-5.40); WBC 6.1 k/uL (3.8-10.6)
[2017-02-19 04:59] LABS: Anion Gap 12 mmol/L; Blood Urea Nitrogen 20 mg/dL (7-17); Calcium 8.9 mg/dL (8.4-10.2); Carbon Dioxide 26 mmol/L (22-30); Chloride 104 mmol/L (98-107); Glucose 143 mg/dL (74-99); Non-African American GFR(MDRD) >60 (>60 ml/min/1.73 sqM); Phosphorous 3.1 mg/dL (2.5-4.5); Potassium 3.7 mmol/L (3.5-5.1); Sodium 142 mmol/L (137-145)
[2017-02-19 05:16] LABS: Glucose,Whole Blood 152 mg/dL (75-99)
[2017-02-19] MEDS ORDERED: Potassium Replacement Protocol 1 EACH MISC MISCELLANE PRN (05:26)
[2017-02-19] MEDS: POTASSIUM CHLORIDE 10 MEQ, LIDOCAINE 2% INJ 10 MG in SODIUM CHLORIDE 0.9% 100 ML IV SCH ×2 (06:13→08:28)
[2017-02-19] MEDS: FUROSEMIDE 10 MG/ML 4 ML VIAL IV SCH (08:28)
[2017-02-19] MEDS: ESOMEPRAZOLE 20 MG in SODIUM CHLORIDE 0.9% 50 ML IVPB SCH (08:33)
[2017-02-19 08:47] LABS: Glucose,Whole Blood 125 mg/dL (75-99)
--- NOTE | 2017-02-19 10:00 | P.PN ---
Subjective Principal diagnosis: 02/15/17- This is a 58-year-old female to the ER for altered mental status. Patient was found by boyfriend today being unresponsive, EMS was called to patient's house, patient is unable to give history secondary to critical condition, history is obtained from EMS and the patient's chart. Patient and his boyfriend deny any drug or alcohol abuse. No known trauma history. The patient has been last seen yesterday before she went to bed. She is minimally arousable throughout the night and became unresponsive this morning then eventually brought into the emergency department she however is maintaining her airway and arterial blood gas has been reviewed hyperventilation oxygen is fairly adequate 02/16/17 upon examination today the patient is seen and examined in the intensive care unit. The patient's mentation has slightly improved she does respond to questions however sometimes not appropriately, continues to have intermittent confusion. Does recognize some of her children but not all of them. Patient continues on 2 L of supplemental oxygen via nasal cannula. Patient did require the inserts and of an NG tube overnight she has had approximately [address] Steele has been consult it, for possible bowel obstruction. Chest x-ray of the abdomen is negative patient is going for CT of the abdomen and pelvis this afternoon as well as the MRI of the brain. Of note earlier today the patient did have a bradycardic episode in the 30s and spontaneously came out of it to a normal sinus rhythm. Family at bedside and have been updated on the patient's current condition and the plan of care at length all questions have been answered. Chest x-ray and echo have been reviewed as well as today's labs. 02/17/17 patient is being seen examined and evaluated on rounds and the intensive care unit today. Patient's mentation has remained the same overnight continues with intermittent confusion. Infectious disease was put on consult for UTI. MRI of the brain was completed yesterday and shows multifocal predominantly cortical areas of subacute ischemia. CTA of the head shows no high-grade stenosis or occlusion. CT of the abdomen and pelvis was negative at this time. Patient underwent a Doppler of her carotids this morning which reveals no evidence of a hemodynamically significant stenosis in either common or internal carotid artery, elevated flow velocity, right ECA. Venous Doppler studies are pending. She is scheduled to have a DIALLO today as well. 02/18/17, patient seen and evaluated and examined mental status has improved significantly as she does able to respond to simple verbal stimuli given presence of blindness however limits her ability to respond, her OG tube is being clamped and likely to be discontinued later on today besides having borderline hypertension she is relatively more hemodynamically stable, she remains on supplemental oxygen 02/19/17 Patient seen and evaluated and examined in ICU her mental status is significantly improved she is more awake and alert however if she is blind that kind of limits extent of evaluation but she does respond appropriately moving all 4 extremity also on command MRI findings reviewed patient does have a bihemispheric stroke noted recommendation of cardiology as well as neurology for DIALLO and hematology consultation Objective - Vital Signs Vital signs: Vital Signs Temp 98.6 F 02/19/17 04:00 Pulse 66 02/19/17 07:00 Resp 14 02/19/17 07:00 BP 186/77 02/19/17 07:00 Pulse Ox 95 02/19/17 07:00 Intake & Output 02/18/17 02/19/17 02/19/17 18:59 06:59 18:59 Intake Total 360 220 40 Output Total 1420 470 80 Balance -1060 -250 -40 Weight 116.4 kg Intake: IV 260 220 40 Sodium Chloride 0.9% 1, 260 220 40 000 ml @ 20 mls/hr IV . Q24H [facility] Rx#:[id number] Intake, IV Titration 100 Amount cefTRIAXone 2,000 mg In 100 Sodium Chloride 0.9% 100 ml @ 100 mls/hr IVPB ONCE [facility] Rx#:[id number] Output: Urine 1420 470 80 Other: Voiding Method Indwelling Catheter Indwelling Catheter GENERAL EXAM: Alert, intermittent confusion appears to have improved, comfortable in no apparent distress. HEAD: Normocephalic. EYES: Normal reaction of pupils, equal size. NOSE: Clear with pink turbinates. THROAT: No erythema or exudates. NECK: No masses, no JVD. CHEST: No chest wall deformity. LUNGS: Equal air entry slightly coarse with no crackles, wheeze, rhonchi or dullness. CVS: S1 and S2 normal with no audible mumurs, regular rhythm. ABDOMEN: No hepatosplenomegaly, hypoactive bowel sounds, no guarding or rigidity. EXTREMITIES: No edema noted, pedal pulses palpable. SKIN: No rashes CENTRAL NERVOUS SYSTEM: No focal deficits, tone is normal in all 4 extremities. Speech is a phasic with intermittent confusion, mental status had significantly improved in terms of response. - Labs CBC & Chem 7: 02/19/17 04:07 02/19/17 04:07 Labs: Abnormal Lab Results - Last 24 Hours (Table) 02/18/17 02/18/17 02/18/17 Range/Units 12:47 16:50 20:37 Hct (34.0-46.0) % MCV (80.0-100.0) fL Plt Count (150-450) k/uL BUN (7-17) mg/dL Glucose (74-99) mg/dL POC Glucose (mg/dL) 145 H 150 H 136 H (75-99) mg/dL 02/19/17 02/19/17 02/19/17 Range/Units 00:03 04:07 04:07 Hct 49.2 H (34.0-46.0) % MCV 101.2 H (80.0-100.0) fL Plt Count 121 L (150-450) k/uL BUN 20 H (7-17) mg/dL Glucose 143 H (74-99) mg/dL POC Glucose (mg/dL) 141 H (75-99) mg/dL 02/19/17 02/19/17 Range/Units 05:14 08:45 Hct (34.0-46.0) % MCV (80.0-100.0) fL Plt Count (150-450) k/uL BUN (7-17) mg/dL Glucose (74-99) mg/dL POC Glucose (mg/dL) 152 H 125 H (75-99) mg/dL Microbiology - Last 24 Hours (Table) 02/15/17 12:00 Blood Culture - Preliminary Blood No Growth after 72 hours Assessment and Plan Plan: Hypertensive urgency on admission, improved Acute hypoxic respiratory failure on admission, slowly improving with supplemental oxygen and breathing treatments, patient will likely require sleep studies and further evaluation in that regard probableAcute ischemic left MCA stroke, Acute encephalopathy altered mental status, related to above and multifactorial process Right upper lobe pneumonia probable aspiration Urinary tract infection Possible bowel obstruction versus gastroparesis related to uncontrolled diabetes mellitus Elevated troponins possibly related to non-ST segment elevated ME Plan Patient can be moved out of the ICU, continue PT OT. Medications have been reviewed and will be continued as ordered. Patient is status post DIALLO. MRI and CT results have been reviewed. Carotid Doppler has been reviewed. Chest x- ray reviewed Echocardiogram reviewed ejection fraction between 55 and 60%. No evidence of pulmonary hypertension. Continue with pulmonary hygiene, coughing and deep breathing exercises, and supportive care. Supplemental oxygen to maintain oxygen saturations of 92% or better. Add nebulizer treatments. GI and DVT prophylaxis. We will continue to monitor labs/results and adjust treatment as necessary. Further recommendations pending. Time with Patient: Greater than 30
[2017-02-19] MEDS: ENOXAPARIN 40 MG/0.4 ML SYRINGE SQ SCH (10:24)
--- NOTE | 2017-02-19 11:37 | P.PN ---
Subjective Principal diagnosis: Ileus The patient's NG tube was discontinued and she was started on clear liquids. She's been able to tolerate those without aspiration. Objective - Vital Signs Vital signs: Vital Signs Temp 98.6 F 02/19/17 04:00 Pulse 94 02/19/17 11:00 Resp 19 02/19/17 11:00 BP 156/60 02/19/17 11:00 Pulse Ox 95 02/19/17 08:00 Intake & Output 02/18/17 02/19/17 02/19/17 18:59 06:59 18:59 Intake Total 360 220 260 Output Total 1420 470 580 Balance -1060 -250 -320 Weight 116.4 kg 116.4 kg Intake: IV 260 220 60 Sodium Chloride 0.9% 1, 260 220 60 000 ml @ 20 mls/hr IV . Q24H [facility] Rx#:[id number] Intake, IV Titration 100 200 Amount Esomeprazole 20 mg In 50 Sodium Chloride 0.9% 50 ml @ 100 mls/hr IVPB DAILY [facility] Rx#:[id number] Potassium Chloride 10 meq 100 Lidocaine 2% Inj 10 mg In Sodium Chloride 0.9% 100 ml @ 100 mls/hr IV Q1HR [facility] Rx#:[id number] cefTRIAXone 1,000 mg In 50 Sodium Chloride 0.9% 50 ml @ 100 mls/hr IVPB Q24HR [facility] Rx#:[id number] cefTRIAXone 2,000 mg In 100 Sodium Chloride 0.9% 100 ml @ 100 mls/hr IVPB ONCE [facility] Rx#:[id number] Output: Urine 1420 470 580 Other: Voiding Method Indwelling Catheter Indwelling Catheter Indwelling Catheter - Constitutional Constitutional Comment(s): Answers most questions appropriately but slowly General appearance: Present: cooperative, no acute distress - Gastrointestinal General gastrointestinal: Absent: distended - Labs CBC & Chem 7: 02/19/17 04:07 02/19/17 04:07 Labs: Abnormal Lab Results - Last 24 Hours (Table) 02/18/17 02/18/17 02/18/17 Range/Units 12:47 16:50 20:37 Hct (34.0-46.0) % MCV (80.0-100.0) fL Plt Count (150-450) k/uL BUN (7-17) mg/dL Glucose (74-99) mg/dL POC Glucose (mg/dL) 145 H 150 H 136 H (75-99) mg/dL 02/19/17 02/19/17 02/19/17 Range/Units 00:03 04:07 04:07 Hct 49.2 H (34.0-46.0) % MCV 101.2 H (80.0-100.0) fL Plt Count 121 L (150-450) k/uL BUN 20 H (7-17) mg/dL Glucose 143 H (74-99) mg/dL POC Glucose (mg/dL) 141 H (75-99) mg/dL 02/19/17 02/19/17 Range/Units 05:14 08:45 Hct (34.0-46.0) % MCV (80.0-100.0) fL Plt Count (150-450) k/uL BUN (7-17) mg/dL Glucose (74-99) mg/dL POC Glucose (mg/dL) 152 H 125 H (75-99) mg/dL Microbiology - Last 24 Hours (Table) 02/15/17 12:00 Blood Culture - Preliminary Blood No Growth after 72 hours Assessment and Plan (1) Ileus Status: Acute Plan: Advance diet as tolerated. Nonsurgical
[2017-02-19] MEDS: IPRATROPIUM-ALBUTEROL 3 ML NEB INHALATION SCH ×3 (11:51→20:34)
[2017-02-19 12:09] LABS: Glucose,Whole Blood 255 mg/dL (75-99)
--- NOTE | 2017-02-19 14:22 | P.PN ---
Progress Note - Text Consult dictated Impression Multiple brain ischemic lesions > ? 2nd to multiple embolic phenomena - Echo is negative foe valvular lesions - ? Evaluate for PFO - Strongly doubt primary Hypercoagulable state - R/O Antiphospholipid syndrome, low-grade DIC, occult malignancy Rec: - Anticardiolipin antibodies IgG/IgM ordered - DIC panel - ? Evaluate for PFO - Consider CT of chest D/W patient & 2 daughters, answered all questions/concerns. Will follow
--- NOTE | 2017-02-19 14:55 | P.PN ---
Subjective This patient is a 66 year old female seen in the ICU today for evaluation of altered mental status and confusion. The patient was seen on consultation yesterday in the ICU after she was found unresponsive at home. Boyfriend had brought her to the emergency room for further evaluation as he could not arouse her. Patient underwent an initial computed tomography scan of the brain which revealed a lucency in the left parietal lobe. She was subsequently admitted to the intensive care unit where she was seen on neurology consultation yesterday. Patient appeared to have evidence of encephalopathy. She was nonverbal. She was sent for MRI of the brain today. MRI reveals multifocal areas of acute cortical infarct. This suggests possibility of embolic stroke phenomenona. Some history was obtained today by to the patient's daughter at bedside in the ICU. Apparently they have also noted today that she is slightly more responsive but still has difficulty with her vision. We reviewed the results of the MRI today in detail with both of the daughters at bedside. She does have evidence of multiple strokes involving both hemispheres of the brain including the occipital lobe. She may have some visual impairment due to this occipital infarct. The patient continues to demonstrate gaze deviation to the right as she did yesterday. We are recommending a cardiology consultation for possible DIALLO procedure for this patient. DIALLO was completed today and is reported negative for any evidence of atrial thrombus or PFO. We'll await further recommendations from cardiology. She did undergo EEG testing today which was reviewed. EEG reveals moderate slowing. We would also recommend a CT angiogram of the head and neck be done to further evaluate for vascular occlusive disease especially intracranial producing these multiple infarcts. CTA angiogram of the head and neck was completed today. These tests have come back negative for any evidence of high-grade stenosis or occlusion. We have recommended a hematology consultation for a hypercoagulable workup in this patient with cryptogenic stroke. We will obtain a MRA of the vertebrals and carotids for further evaluation. MR angiogram of the head and neck was completed today. Impression is normal [place] with both anterior and posterior circulation. Cervical vascular disease was noted. MRA of the carotids indicated no significant stenosis. Atheromatous changes were noted with tortuosity present in the internal carotid arteries. These findings are not consistent with [employer] vasculitis or fibromuscular dysplasia. Given the extent of her bilateral strokes the exact etiology still remains unclear. The patient continues to do fairly well in the ICU today. There is ongoing improvement in her overall mental status as well. We are awaiting further evaluation from Dr. Gallardo and a hematology assessment for hypercoagulable state as a cause for stroke in this patient. The patient was seen today by Dr. Tian from hematology. His formal consultation is pending today. His impression is to rule out other causes of embolic phenomenon for this patient. As noted DIALLO is negative for any evidence of atrial thrombus or PFO. He is doubting primary hypercoagulable state in this patient. Other possibilities include antiphospholipid syndrome, low-grade DIC, an occult malignancy. We will await further recommendations pending laboratory test results for this patient. Her case was once again discussed with her daughter is at bedside. There were updated on all of her current test results and neurological findings. Her overall prognosis at this time remains very guarded. We discussed all of her neurological exam findings and test results in detail with both of her daughters at bedside. All of their questions were answered. They are aware of their mother's guarded condition in the intensive care unit. We will continue close neurological follow-up of this patient in the ICU. Objective - Vital Signs Vital signs: Vital Signs Temp 98.6 F 02/19/17 04:00 Pulse 66 02/19/17 07:00 Resp 14 02/19/17 07:00 BP 186/77 02/19/17 07:00 Pulse Ox 95 02/19/17 07:00 Intake & Output 02/18/17 02/19/17 02/19/17 18:59 06:59 18:59 Intake Total 360 220 40 Output Total 1420 470 80 Balance -1060 -250 -40 Weight 116.4 kg Intake: IV 260 220 40 Sodium Chloride 0.9% 1, 260 220 40 000 ml @ 20 mls/hr IV . Q24H [facility] Rx#:[id number] Intake, IV Titration 100 Amount cefTRIAXone 2,000 mg In 100 Sodium Chloride 0.9% 100 ml @ 100 mls/hr IVPB ONCE [facility] Rx#:[id number] Output: Urine 1420 470 80 Other: Voiding Method Indwelling Catheter Indwelling Catheter - Exam Physical examination: PHYSICAL EXAMINATION: Patient is resting comfortably in bed. VITAL SIGNS: Blood pressure is [142/58]. Heart rate is [84]. Respiration is [17] . Temperature is [98.0]. HEENT: Head is atraumatic, neck is supple, there were no carotid bruits. CHEST: Lungs are clear to auscultation and percussion. CARDIAC: S1, S2 normal rate and rhythm. There is no murmur. ABDOMEN: Soft and nontender. Bowel sounds are present. EXTREMITIES: There is no pedal edema. Peripheral pulses are present. Neurological examination: Patient is slightly more awake today in the intensive care unit. Her speech is slightly aphasic. She does continue to demonstrate visual impairment bilaterally. Her memory and intellectual functions are impaired. She has no focal motor deficit on examination. Deep tendon reflexes are symmetric 1+. She is showing more weakness in her left upper extremity as well as facial droop. Plantar responses flexor bilaterally. - Labs CBC & Chem 7: 02/19/17 04:07 02/19/17 04:07 Labs: Abnormal Lab Results - Last 24 Hours (Table) 02/18/17 02/18/17 02/18/17 Range/Units 12:47 16:50 20:37 Hct (34.0-46.0) % MCV (80.0-100.0) fL Plt Count (150-450) k/uL BUN (7-17) mg/dL Glucose (74-99) mg/dL POC Glucose (mg/dL) 145 H 150 H 136 H (75-99) mg/dL 02/19/17 02/19/17 02/19/17 Range/Units 00:03 04:07 04:07 Hct 49.2 H (34.0-46.0) % MCV 101.2 H (80.0-100.0) fL Plt Count 121 L (150-450) k/uL BUN 20 H (7-17) mg/dL Glucose 143 H (74-99) mg/dL POC Glucose (mg/dL) 141 H (75-99) mg/dL 02/19/17 02/19/17 Range/Units 05:14 08:45 Hct (34.0-46.0) % MCV (80.0-100.0) fL Plt Count (150-450) k/uL BUN (7-17) mg/dL Glucose (74-99) mg/dL POC Glucose (mg/dL) 152 H 125 H (75-99) mg/dL Microbiology - Last 24 Hours (Table) 02/15/17 12:00 Blood Culture - Preliminary Blood No Growth after 72 hours Assessment and Plan (1) Acute ischemic left MCA stroke Status: Acute Code(s): I63.512 - CEREB INFRC D/T UNSP OCCLS OR STENOS OF LEFT MID CEREB ART (2) Acute encephalopathy Status: Acute Code(s): G93.40 - ENCEPHALOPATHY, UNSPECIFIED (3) UTI (urinary tract infection) Status: Acute Code(s): N39.0 - URINARY TRACT INFECTION, SITE NOT SPECIFIED (4) Cellulitis Status: Acute Code(s): L03.90 - CELLULITIS, UNSPECIFIED (5) Diabetes Status: Acute Code(s): E11.9 - TYPE 2 DIABETES MELLITUS WITHOUT COMPLICATIONS Plan: This patient is a 66-year-old female admitted to the intensive care unit after being found unresponsive at home. She underwent a computed tomography scan of the brain which revealed vague lucency in the left parietal lobe. Stroke could not be excluded. Patient remains obtunded in the ICU. She does not follow commands. She has had no verbal output as per the ICU nursing staff. Patient is slightly more awake today in the ICU. She is being treated for acute ileus which is resolving. She was sent for MRI of the brain today the results of which are noted above. Patient has suffered bihemispheric stroke etiology undetermined. We have recommended a DIALLO procedure to be done by cardiology to rule out cardiac source of emboli. DIALLO was completed today and is reported negative for any evidence of atrial thrombus or PFO. Patient appears to have evidence for cryptogenic stroke. We have recommended a hematology consultation for further workup of hypercoagulable state in this patient. Would also recommend MRA of the vertebrals and carotid arteries for further assessment given the unclear etiology of her multifocal strokes. Patient did undergo MRA of the [place] and carotids the results which are noted above. Both studies seem to be negative for any occlusive disease. We are waiting Dr. Gallardo to evaluate this patient for hypercoagulable state. The patient was seen in consultation today by Dr. Tian for hematology consult regarding possible hypercoagulable state. His formal consultation is pending. He has ordered several laboratory tests for anticardiolipin antibodies and DIC panel. Concern also for occult malignancy in this patient. We will await further recommendations from Dr. Tian in regards to this patient's hematological profile. Differential diagnosis would also include possibility of posterior reversible encephalopathy syndrome. We will continue close neurological follow- up with this patient in the ICU. Case was discussed today at length with the patient's daughters who were at bedside yesterday. They are aware for guarded condition. All of their questions were answered. Patient will likely need subacute rehab at the time of discharge. Her overall prognosis at this time remains very guarded. We will continue close neurological follow-up for this patient in the intensive care unit.
--- NOTE | 2017-02-19 17:12 | CONS ---
DATE OF SERVICE: 02/19/2017 ADMITTING PHYSICIAN: Dr. Mcleod. REASON FOR CONSULTATION: Possible hypercoagulable state. HISTORY OF ILLNESS: Mrs. Escobar is a 66-year-old female with no prior history of thromboembolic events. She was hospitalized after she was found by her boyfriend almost totally unresponsive. The patient was subsequently found to have multiple lesions in her brain cortex consistent with ischemia, she had negative workup for carotid disease, negative echocardiogram for valvular disease by DIALLO. Her recovery has been rather slow. She continues to be arousable but very weak, unable to stand and drowsy. We are asked to evaluate the patient for possible embolic phenomenon. PAST MEDICAL HISTORY: Prior history of DVT, diabetes mellitus, hyperlipidemia, hypertension, adult onset diabetes mellitus. PAST SURGICAL HISTORY: Back surgery, , herniorrhaphy, tubal ligation. SOCIAL HISTORY: The patient smoked one pack of cigarettes daily. She quit smoking one year ago. Resides with her boyfriend. Had been ambulating with walker with wheels. FAMILY HISTORY: Noncontributory. REVIEW OF SYSTEMS: No headache, blurred vision, dizziness or tinnitus. No reports of fever, chills or night sweats. No chest pain, no shortness of breath. She has slight abdominal discomfort and recent ileus. HOME MEDICATIONS: 1. Lisinopril. 2. Cannon. 3. Insulin. On examination the patient appeared alert. The patient was drowsy but arousable. Blood pressure was 142/58, pulse 64 and regular, respiratory rate 13 and not labored. No pathologic lymphadenopathy. Trachea was in midline. Chest was clear with good air exchange bilaterally. Heart sounds were normal. The abdomen was soft. The liver and spleen were not clinically palpable. No masses, tenderness or inguinal lymphadenopathy. Extremities reveal generalize edema. Neurologic examination without focal signs, diffuse overall weakness. IMPRESSION: Multiple brain ischemic lesions ? secondary to multiple embolic phenomena, etiology not known but strongly doubt primary hypercoagulable state in this particular setup. Acquired process such as antiphospholipid syndrome, low level disseminated intravascular coagulopathy or potential occult malignancy cannot be totally ruled out. In addition, despite having negative echocardiogram, I am unsure if the study was done to evaluate for potential underlying patent foramen ovale, especially with a history of deep venous thrombosis, that might explain paradoxical embolism process. RECOMMENDATION: 1. Obtain anticardiolipin antibodies, IgG and IgM. 2. Obtain DIC panel though felt to be clinically unlikely. 3. ? Evaluate for PFO. 4. Consider CT scan of the chest. 5. Repeat MRI in 3-4 days. I discussed assessment and recommendations with the patient and two daughters. I answered all questions and concerns to their satisfaction. Will follow the patient along with you in the hospital. TAVIA
[2017-02-19] MEDS: SODIUM CHLORIDE 0.9% 1,000 ML IV SCH (17:20)
[2017-02-19 17:37] LABS: Glucose,Whole Blood 173 mg/dL (75-99)
[2017-02-19 20:57] LABS: Glucose,Whole Blood 218 mg/dL (75-99)
[2017-02-20 06:03] LABS: Glucose,Whole Blood 176 mg/dL (75-99)
[2017-02-20 06:35] LABS: CH 31.5; CHCM 31.5; HCT 47.5 % (34.0-46.0); HDW 2.28; HGB 15.3 gm/dL (11.4-16.0); MCH 32.5 pg (25.0-35.0); MCHC 32.3 g/dL (31.0-37.0); MCV 100.6 fL (80.0-100.0); Macrocytosis Slight; Mean Platelet Volume 9.1; RBC 4.72 m/uL (3.80-5.40); RDW 14.2 % (11.5-15.5); WBC 6.5 k/uL (3.8-10.6)
[2017-02-20] MEDS: INSULIN LISPRO (humaLOG) 300 UNIT/3 ML VIAL SQ SCH ×4 (06:42→21:50)
[2017-02-20 06:48] LABS: Anion Gap 10 mmol/L; Blood Urea Nitrogen 33 mg/dL (7-17); Calcium 8.8 mg/dL (8.4-10.2); Carbon Dioxide 27 mmol/L (22-30); Chloride 105 mmol/L (98-107); Glucose 194 mg/dL (74-99); Non-African American GFR(MDRD) >60 (>60 ml/min/1.73 sqM); Potassium 3.8 mmol/L (3.5-5.1); Sodium 142 mmol/L (137-145)
[2017-02-20] MEDS: ESOMEPRAZOLE 20 MG in SODIUM CHLORIDE 0.9% 50 ML IVPB SCH (07:57)
[2017-02-20] MEDS: ENOXAPARIN 40 MG/0.4 ML SYRINGE SQ SCH (07:58)
[2017-02-20] MEDS: FUROSEMIDE 10 MG/ML 4 ML VIAL IV SCH (07:58)
[2017-02-20] MEDS: IPRATROPIUM-ALBUTEROL 3 ML NEB INHALATION SCH ×3 (08:22→20:25)
[2017-02-20] MEDS: NITROGLYCERIN OINT 1 INCH/GM PACKET TOPICAL SCH ×3 (09:01→23:50)
--- NOTE | 2017-02-20 10:55 | PN ---
SUBJECTIVE: 66 -year-old white female who was admitted to the hospital with UTI with ileus and aspiration pneumonia. There was some concern about a stroke, showed occipital subendocardial ischemia. She has some diastolic CHF. On Lasix IV daily as well as hydralazine for hypertension acceleration, Lovenox subcu daily, Rocephin antibiotics, Accu-Chek protocol. Vital signs show temp 97.6, respiratory rate ( ), pulse 70-76. Respiratory rate 16-18, blood pressure 130s/50s to 140s/60. O2 97% on 2 L. Cardiovascular S1, S2, lungs scattered wheeze. Hematological: Negative Homans. GI: Increased bowel sounds, soft. Extremities show 2+ pedal edema. She was seen by Dr. Tian today for multiple brain ischemic lesions possibly due to embolic phenomenon although the echo was all negative. Hypercoagulable state was ruled out. Recommend possibly a CT of the chest. Suspect the patient has a UTI with ileus which is improving. NG tube was removed as her ileus is improved. We will monitor deferent pupils. ICU time 30 minutes. MTDD
[2017-02-20 11:59] LABS: Glucose,Whole Blood 197 mg/dL (75-99)
--- NOTE | 2017-02-20 12:02 | P.PN ---
Subjective 02/15/17- This is a 58-year-old female to the ER for altered mental status. Patient was found by boyfriend today being unresponsive, EMS was called to patient's house, patient is unable to give history secondary to critical condition, history is obtained from EMS and the patient's chart. Patient and his boyfriend deny any drug or alcohol abuse. No known trauma history. The patient has been last seen yesterday before she went to bed. She is minimally arousable throughout the night and became unresponsive this morning then eventually brought into the emergency department she however is maintaining her airway and arterial blood gas has been reviewed hyperventilation oxygen is fairly adequate 02/16/17 upon examination today the patient is seen and examined in the intensive care unit. The patient's mentation has slightly improved she does respond to questions however sometimes not appropriately, continues to have intermittent confusion. Does recognize some of her children but not all of them. Patient continues on 2 L of supplemental oxygen via nasal cannula. Patient did require the inserts and of an NG tube overnight she has had approximately [address] Steele has been consult it, for possible bowel obstruction. Chest x-ray of the abdomen is negative patient is going for CT of the abdomen and pelvis this afternoon as well as the MRI of the brain. Of note earlier today the patient did have a bradycardic episode in the 30s and spontaneously came out of it to a normal sinus rhythm. Family at bedside and have been updated on the patient's current condition and the plan of care at length all questions have been answered. Chest x-ray and echo have been reviewed as well as today's labs. 02/17/17 patient is being seen examined and evaluated on rounds and the intensive care unit today. Patient's mentation has remained the same overnight continues with intermittent confusion. Infectious disease was put on consult for UTI. MRI of the brain was completed yesterday and shows multifocal predominantly cortical areas of subacute ischemia. CTA of the head shows no high-grade stenosis or occlusion. CT of the abdomen and pelvis was negative at this time. Patient underwent a Doppler of her carotids this morning which reveals no evidence of a hemodynamically significant stenosis in either common or internal carotid artery, elevated flow velocity, right ECA. Venous Doppler studies are pending. She is scheduled to have a DIALLO today as well. 02/18/17, patient seen and evaluated and examined mental status has improved significantly as she does able to respond to simple verbal stimuli given presence of blindness however limits her ability to respond, her OG tube is being clamped and likely to be discontinued later on today besides having borderline hypertension she is relatively more hemodynamically stable, she remains on supplemental oxygen 02/19/17 Patient seen and evaluated and examined in ICU her mental status is significantly improved she is more awake and alert however if she is blind that kind of limits extent of evaluation but she does respond appropriately moving all 4 extremity also on command MRI findings reviewed patient does have a bihemispheric stroke noted recommendation of cardiology as well as neurology for DIALLO and hematology consultation 02/20/17 patient is seen and examined and evaluated today on rounds. Patient is currently hemodynamically stable. She is resting in bed on room air. She continues to have shortness of breath with exertion or extensive conversation. Denies any cough or congestion. 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 Patient does respond appropriately. Patient has neurology and cardiology as well as hematology on consult we'll appreciate RECOMMENDATIONS. Objective - Vital Signs Vital signs: Vital Signs Temp 98.8 F 02/20/17 11:40 Pulse 85 02/20/17 11:40 Resp 18 02/20/17 11:40 BP 120/66 02/20/17 11:40 Pulse Ox 91 L 02/20/17 11:40 Intake & Output 02/19/17 02/20/17 02/20/17 18:59 06:59 18:59 Intake Total 320 180 240 Output Total 730 580 Balance -410 -400 240 Weight 116.4 kg 97.5 kg Intake: IV 120 180 40 Sodium Chloride 0.9% 1, 120 180 40 000 ml @ 20 mls/hr IV . Q24H [facility] Rx#:[id number] Intake, IV Titration 200 100 Amount Esomeprazole 20 mg In 50 50 Sodium Chloride 0.9% 50 ml @ 100 mls/hr IVPB DAILY [facility] Rx#:[id number] Potassium Chloride 10 meq 100 Lidocaine 2% Inj 10 mg In Sodium Chloride 0.9% 100 ml @ 100 mls/hr IV Q1HR [facility] Rx#:[id number] cefTRIAXone 1,000 mg In 50 50 Sodium Chloride 0.9% 50 ml @ 100 mls/hr IVPB Q24HR [facility] Rx#:[id number] Oral 100 Output: Urine 730 580 Uretheral (Epstein) 500 Other: Voiding Method Indwelling Catheter Indwelling Catheter Indwelling Catheter # Bowel Movements 1 - Exam GENERAL EXAM: Alert, intermittent confusion appears to have him be improved, comfortable in no apparent distress. HEAD: Normocephalic. EYES: Normal reaction of pupils, equal size. NOSE: Clear with pink turbinates. THROAT: No erythema or exudates. NECK: No masses, no JVD. CHEST: No chest wall deformity. LUNGS: Equal air entry slightly coarse with no crackles, wheeze, rhonchi or dullness. CVS: S1 and S2 normal with no audible mumurs, regular rhythm. ABDOMEN: No hepatosplenomegaly, hypoactive bowel sounds, no guarding or rigidity. EXTREMITIES: No edema noted, pedal pulses palpable. SKIN: No rashes CENTRAL NERVOUS SYSTEM: No focal deficits, tone is normal in all 4 extremities. Speech is a phasic with intermittent confusion, ental status has improved in terms response.. - Labs CBC & Chem 7: 02/20/17 05:55 02/20/17 05:55 Labs: Abnormal Lab Results - Last 24 Hours (Table) 02/19/17 02/19/17 02/19/17 Range/Units 12:08 14:29 16:55 Hct (34.0-46.0) % MCV (80.0-100.0) fL Plt Count (150-450) k/uL Fibrinogen 535 H (200-500) mg/dL BUN (7-17) mg/dL Glucose (74-99) mg/dL POC Glucose (mg/dL) 255 H 173 H (75-99) mg/dL 02/19/17 02/20/17 02/20/17 Range/Units 20:53 05:55 05:55 Hct 47.5 H (34.0-46.0) % MCV 100.6 H (80.0-100.0) fL Plt Count 116 L (150-450) k/uL Fibrinogen (200-500) mg/dL BUN 33 H (7-17) mg/dL Glucose 194 H (74-99) mg/dL POC Glucose (mg/dL) 218 H (75-99) mg/dL 02/20/17 02/20/17 Range/Units 06:02 11:49 Hct (34.0-46.0) % MCV (80.0-100.0) fL Plt Count (150-450) k/uL Fibrinogen (200-500) mg/dL BUN (7-17) mg/dL Glucose (74-99) mg/dL POC Glucose (mg/dL) 176 H 197 H (75-99) mg/dL Microbiology - Last 24 Hours (Table) 02/15/17 12:00 Blood Culture - Preliminary Blood No Growth after 96 hours Assessment and Plan Plan: Assessment Hypertensive urgency on admission, improved Acute hypoxic respiratory failure on admission, slowly improving with supplemental oxygen and breathing treatments, patient will likely require sleep studies and further evaluation in the outpatient setting in that regard Probable Acute ischemic left MCA stroke, Acute encephalopathy altered mental status Right upper lobe pneumonia probable aspiration Urinary tract infection Possible bowel obstruction versus gastroparesis related to uncontrolled diabetes mellitus Elevated troponins possibly related to non-ST segment elevated IA Plan Medications have been reviewed and will be continued as ordered. All labs have been reviewed. MRI and CT results have been reviewed. Carotid Doppler has been reviewed. Chest x-ray reviewed Echocardiogram reviewed ejection fraction between 55 and 60%. No evidence of pulmonary hypertension. Continue with pulmonary hygiene, coughing and deep breathing exercises, and supportive care. Supplemental oxygen to maintain oxygen saturations of 92% or better. Add nebulizer treatments. GI and DVT prophylaxis. We will continue to monitor labs/ results and adjust treatment as necessary. Further recommendations pending. I performed an examination of the patient and discussed their management with the nurse practitioner. I have reviewed the nurse practitioner's note and agree with the documented findings and plan of care.
--- NOTE | 2017-02-20 12:12 | PN ---
DATE OF SERVICE: 02/19/17 REASON FOR FOLLOW UP: Urinary tract infection. INTERVAL HISTORY: The patient is afebrile. She is more awake and alert. She is breathing comfortably. She denies significant chest pain. No shortness of breath, cough. No abdominal pain. No diarrhea. On examination, blood pressure 112/62, pulse 78, temperature 97.6, she is 95% on 2 L nasal cannula. General description is an elderly female lying in the bed , in no distress. Respiratory system: Unlabored breathing. Clear to auscultation anteriorly. Heart: S1, S2 regular rate and rhythm. Abdomen soft , no tenderness. Labs: Blood cultures negative. Unfortunately urine cultures were not done. DIAGNOSTIC IMPRESSION AND PLAN: 1. Patient admitted to the hospital with weakness and lethargy, multifactorial. The patient likely a component of a urinary tract infection, likely rocephin sensitive as the patient did show overall improvement with Rocephin that will be continued, plan to finish therapy with oral ceftin. 2. Continue supportive care. MTDD
[2017-02-20] MEDS: SODIUM CHLORIDE 0.9% 1,000 ML IV SCH (15:32)
[2017-02-20 16:38] LABS: Glucose,Whole Blood 272 mg/dL (75-99)
--- NOTE | 2017-02-20 16:50 | P.PN ---
Progress Note - Text The patient resting comfortably in her bed. She has been tolerating liquids. On exam her vital signs are stable. Her abdomen soft. No evidence of any obstruction. Patient will have her diet advanced as tolerated.
--- NOTE | 2017-02-20 20:04 | P.PN ---
Subjective This patient is a 66 year old female seen in the ICU today for evaluation of altered mental status and confusion. The patient was seen on consultation yesterday in the ICU after she was found unresponsive at home. Boyfriend had brought her to the emergency room for further evaluation as he could not arouse her. Patient underwent an initial computed tomography scan of the brain which revealed a lucency in the left parietal lobe. She was subsequently admitted to the intensive care unit where she was seen on neurology consultation yesterday. Patient appeared to have evidence of encephalopathy. She was nonverbal. She was sent for MRI of the brain today. MRI reveals multifocal areas of acute cortical infarct. This suggests possibility of embolic stroke phenomenona. Some history was obtained today by to the patient's daughter at bedside in the ICU. Apparently they have also noted today that she is slightly more responsive but still has difficulty with her vision. We reviewed the results of the MRI today in detail with both of the daughters at bedside. She does have evidence of multiple strokes involving both hemispheres of the brain including the occipital lobe. She may have some visual impairment due to this occipital infarct. The patient continues to demonstrate gaze deviation to the right as she did yesterday. We are recommending a cardiology consultation for possible DIALLO procedure for this patient. DIALLO was completed today and is reported negative for any evidence of atrial thrombus or PFO. We'll await further recommendations from cardiology. She did undergo EEG testing today which was reviewed. EEG reveals moderate slowing. We would also recommend a CT angiogram of the head and neck be done to further evaluate for vascular occlusive disease especially intracranial producing these multiple infarcts. CTA angiogram of the head and neck was completed today. These tests have come back negative for any evidence of high-grade stenosis or occlusion. We have recommended a hematology consultation for a hypercoagulable workup in this patient with cryptogenic stroke. We will obtain a MRA of the vertebrals and carotids for further evaluation. MR angiogram of the head and neck was completed today. Impression is normal chilkat of Thomason with both anterior and posterior circulation. Cervical vascular disease was noted. MRA of the carotids indicated no significant stenosis. Atheromatous changes were noted with tortuosity present in the internal carotid arteries. These findings are not consistent with S[employer]IC[employer] TECH[employer]IST vasculitis or fibromuscular dysplasia. Given the extent of her bilateral strokes the exact etiology still remains unclear. The patient continues to do fairly well in the ICU today. There is ongoing improvement in her overall mental status as well. We are awaiting further evaluation from Dr. Gallardo and a hematology assessment for hypercoagulable state as a cause for stroke in this patient. The patient was seen today by Dr. Tian from hematology. His formal consultation is pending today. His impression is to rule out other causes of embolic phenomenon for this patient. As noted DIALLO is negative for any evidence of atrial thrombus or PFO. He is doubting primary hypercoagulable state in this patient. Other possibilities include antiphospholipid syndrome, low-grade DIC, an occult malignancy. We will await further recommendations pending laboratory test results for this patient. Her case was once again discussed with her daughter is at bedside. There were updated on all of her current test results and neurological findings. Her overall prognosis at this time remains very guarded. We discussed all of her neurological exam findings and test results in detail with both of her daughters at bedside. Her anticardiolipin antibody test also came back negative today. We will start the patient on Plavix for secondary stroke prevention at this time. She should be evaluated for subacute rehab at the time of discharge planning. All of their questions were answered. We will continue close neurological follow-up of this patient. Her overall prognosis remains guarded. Objective - Vital Signs Vital signs: Vital Signs Temp 98.1 F 02/20/17 04:00 Pulse 72 02/20/17 08:35 Resp 17 02/20/17 04:00 BP 143/64 02/20/17 04:00 Pulse Ox 94 L 02/20/17 04:00 Intake & Output 02/19/17 02/20/17 02/20/17 18:59 06:59 18:59 Intake Total 320 180 100 Output Total 730 580 Balance -410 -400 100 Weight 116.4 kg 97.5 kg Intake: IV 120 180 Sodium Chloride 0.9% 1, 120 180 000 ml @ 20 mls/hr IV . Q24H [facility] Rx#:[id number] Intake, IV Titration 200 Amount Esomeprazole 20 mg In 50 Sodium Chloride 0.9% 50 ml @ 100 mls/hr IVPB DAILY [facility] Rx#:[id number] Potassium Chloride 10 meq 100 Lidocaine 2% Inj 10 mg In Sodium Chloride 0.9% 100 ml @ 100 mls/hr IV Q1HR [facility] Rx#:[id number] cefTRIAXone 1,000 mg In 50 Sodium Chloride 0.9% 50 ml @ 100 mls/hr IVPB Q24HR [facility] Rx#:[id number] Oral 100 Output: Urine 730 580 Uretheral (Epstein) 500 Other: Voiding Method Indwelling Catheter Indwelling Catheter # Bowel Movements 1 - Exam Physical examination: PHYSICAL EXAMINATION: Patient is resting comfortably in bed. VITAL SIGNS: Blood pressure is [136/63]. Heart rate is [90]. Respiration is [18] . Temperature is [98.8]. HEENT: Head is atraumatic, neck is supple, there were no carotid bruits. CHEST: Lungs are clear to auscultation and percussion. CARDIAC: S1, S2 normal rate and rhythm. There is no murmur. ABDOMEN: Soft and nontender. Bowel sounds are present. EXTREMITIES: There is no pedal edema. Peripheral pulses are present. Neurological examination: Patient is slightly more awake today in the intensive care unit. Her speech is slightly aphasic. She does continue to demonstrate visual impairment bilaterally. Her memory and intellectual functions are impaired. She has no focal motor deficit on examination. Deep tendon reflexes are symmetric 1+. She is showing more weakness in her left upper extremity as well as facial droop. Plantar responses flexor bilaterally. - Labs CBC & Chem 7: 02/20/17 05:55 02/20/17 05:55 Labs: Abnormal Lab Results - Last 24 Hours (Table) 02/19/17 02/19/17 02/19/17 Range/Units 12:08 14:29 16:55 Hct (34.0-46.0) % MCV (80.0-100.0) fL Plt Count (150-450) k/uL Fibrinogen 535 H (200-500) mg/dL BUN (7-17) mg/dL Glucose (74-99) mg/dL POC Glucose (mg/dL) 255 H 173 H (75-99) mg/dL 02/19/17 02/20/17 02/20/17 Range/Units 20:53 05:55 05:55 Hct 47.5 H (34.0-46.0) % MCV 100.6 H (80.0-100.0) fL Plt Count 116 L (150-450) k/uL Fibrinogen (200-500) mg/dL BUN 33 H (7-17) mg/dL Glucose 194 H (74-99) mg/dL POC Glucose (mg/dL) 218 H (75-99) mg/dL 02/20/17 Range/Units 06:02 Hct (34.0-46.0) % MCV (80.0-100.0) fL Plt Count (150-450) k/uL Fibrinogen (200-500) mg/dL BUN (7-17) mg/dL Glucose (74-99) mg/dL POC Glucose (mg/dL) 176 H (75-99) mg/dL Microbiology - Last 24 Hours (Table) 02/15/17 12:00 Blood Culture - Preliminary Blood No Growth after 96 hours Assessment and Plan (1) Acute ischemic left MCA stroke Status: Acute Code(s): I63.512 - CEREB INFRC D/T UNSP OCCLS OR STENOS OF LEFT MID CEREB ART (2) Acute encephalopathy Status: Acute Code(s): G93.40 - ENCEPHALOPATHY, UNSPECIFIED (3) UTI (urinary tract infection) Status: Acute Code(s): N39.0 - URINARY TRACT INFECTION, SITE NOT SPECIFIED (4) Cellulitis Status: Acute Code(s): L03.90 - CELLULITIS, UNSPECIFIED (5) Diabetes Status: Acute Code(s): E11.9 - TYPE 2 DIABETES MELLITUS WITHOUT COMPLICATIONS Plan: This patient is a 66-year-old female admitted to the intensive care unit after being found unresponsive at home. She underwent a computed tomography scan of the brain which revealed vague lucency in the left parietal lobe. Stroke could not be excluded. Patient remains obtunded in the ICU. She does not follow commands. She has had no verbal output as per the ICU nursing staff. Patient is slightly more awake today in the ICU. She is being treated for acute ileus which is resolving. She was sent for MRI of the brain today the results of which are noted above. Patient has suffered bihemispheric stroke etiology undetermined. We have recommended a DIALLO procedure to be done by cardiology to rule out cardiac source of emboli. DIALLO was completed today and is reported negative for any evidence of atrial thrombus or PFO. Patient appears to have evidence for cryptogenic stroke. We have recommended a hematology consultation for further workup of hypercoagulable state in this patient. Would also recommend MRA of the vertebrals and carotid arteries for further assessment given the unclear etiology of her multifocal strokes. Patient did undergo MRA of the chilkat of Thomason and carotids the results which are noted above. Both studies seem to be negative for any occlusive disease. We are waiting Dr. Gallardo to evaluate this patient for hypercoagulable state. The patient was seen in consultation today by Dr. Tian for hematology consult regarding possible hypercoagulable state. His formal consultation is pending. Her blood testing for anticardiolipin antibodies came back negative today. We will start the patient on Plavix today for secondary stroke prevention. He has ordered several laboratory tests for anticardiolipin antibodies and DIC panel. Concern also for occult malignancy in this patient. We will await further recommendations from Dr. Tian in regards to this patient's hematological profile. Differential diagnosis would also include possibility of posterior reversible encephalopathy syndrome. We will continue close neurological follow- up with this patient. Case was discussed today at length with the patient's daughters who were at bedside yesterday. They are aware for guarded condition. All of their questions were answered. Patient will likely need subacute rehab at the time of discharge. Her overall prognosis at this time remains very guarded. We will continue close neurological follow-up for this patient in the intensive care unit.
--- NOTE | 2017-02-20 21:07 | PN ---
DATE OF SERVICE: 02/20/2017 REASON FOR FOLLOWUP: Urinary tract infection. INTERVAL HISTORY: The patient is afebrile. She is more awake and alert, breathing comfortably. Denies significant chest pain, shortness of breath of cough. No nausea, vomiting or any diarrhea. On examination, blood pressure 120/66 with a pulse of 85, temperature 98.8. She is 91% on room air. General description is an elderly female lying in bed in no distress. RESPIRATORY SYSTEM: Unlabored breathing. Clear to auscultation anteriorly. HEART: S1, S2. Regular rate and rhythm. ABDOMEN: Soft. No tenderness. LABS: Hemoglobin is 15.3, white count 6.5. BUN of 33, creatinine 0.91. DIAGNOSTIC IMPRESSION AND PLAN: Patient admitted to hospital with mental status changes, likely multifactorial; did have a component of urinary tract infection , as the patient did have a significantly positive UA. Unfortunately no urine cultures were done. She improved on Rocephin. Plan to finish therapy with p.o. Ceftin for another 5 to 7 days. Continue supportive care. MTDD
[2017-02-20 21:10] LABS: Glucose,Whole Blood 188 mg/dL (75-99)
[2017-02-21 05:53] LABS: Glucose,Whole Blood 181 mg/dL (75-99)
[2017-02-21] MEDS: INSULIN LISPRO (humaLOG) 300 UNIT/3 ML VIAL SQ SCH ×4 (06:42→21:37)
[2017-02-21 06:55] LABS: Basophils % (A) 1 %; CH 31.9; CHCM 32.2; Eosinophils # (A) 0.2 k/uL (0-0.7); Eosinophils % (A) 3 %; HCT 46.2 % (34.0-46.0); HGB 14.8 gm/dL (11.4-16.0); Luc # (Auto) 0.16; Luc % (Auto) 3; Lymphocytes # (A) 1.1 k/uL (1.0-4.8); Lymphocytes % (A) 20 %; MCH 31.8 pg (25.0-35.0); MCHC 31.9 g/dL (31.0-37.0); MCV 99.4 fL (80.0-100.0); Mean Platelet Volume 8.7; Monocytes # (A) 0.4 k/uL (0-1.0); Monocytes % (A) 8 %; Neutrophils # (A) 3.8 k/uL (1.3-7.7); Neutrophils % (A) 66 %; RBC 4.65 m/uL (3.80-5.40); RDW 14.2 % (11.5-15.5); WBC 5.7 k/uL (3.8-10.6); WBC (Perox) 5.94
[2017-02-21 07:17] LABS: ALT 51 U/L (9-52); AST 34 U/L (14-36); Alkaline Phosphatase 71 U/L (38-126); Anion Gap 7 mmol/L; Blood Urea Nitrogen 37 mg/dL (7-17); Calcium 8.7 mg/dL (8.4-10.2); Carbon Dioxide 29 mmol/L (22-30); Chloride 103 mmol/L (98-107); Glucose 206 mg/dL (74-99); Non-African American GFR(MDRD) >60 (>60 ml/min/1.73 sqM); Sodium 139 mmol/L (137-145); Total Bilirubin 0.7 mg/dL (0.2-1.3)
[2017-02-21] MEDS: FUROSEMIDE 10 MG/ML 4 ML VIAL IV SCH (08:14)
[2017-02-21] MEDS: ENOXAPARIN 40 MG/0.4 ML SYRINGE SQ SCH (08:14)
[2017-02-21] MEDS: NITROGLYCERIN OINT 1 INCH/GM PACKET TOPICAL SCH ×2 (08:15→17:11)
[2017-02-21] MEDS: IPRATROPIUM-ALBUTEROL 3 ML NEB INHALATION SCH ×3 (08:37→19:46)
[2017-02-21] MEDS: FAMOTIDINE 20 MG TAB PO SCH (08:53)
[2017-02-21] MEDS: CLOPIDOGREL 75 MG TAB PO SCH (08:53)
--- NOTE | 2017-02-21 10:31 | P.PN ---
Subjective 02/15/17- This is a 58-year-old female to the ER for altered mental status. Patient was found by boyfriend today being unresponsive, EMS was called to patient's house, patient is unable to give history secondary to critical condition, history is obtained from EMS and the patient's chart. Patient and his boyfriend deny any drug or alcohol abuse. No known trauma history. The patient has been last seen yesterday before she went to bed. She is minimally arousable throughout the night and became unresponsive this morning then eventually brought into the emergency department she however is maintaining her airway and arterial blood gas has been reviewed hyperventilation oxygen is fairly adequate 02/16/17 upon examination today the patient is seen and examined in the intensive care unit. The patient's mentation has slightly improved she does respond to questions however sometimes not appropriately, continues to have intermittent confusion. Does recognize some of her children but not all of them. Patient continues on 2 L of supplemental oxygen via nasal cannula. Patient did require the inserts and of an NG tube overnight she has had approximately [address] Steele has been consult it, for possible bowel obstruction. Chest x-ray of the abdomen is negative patient is going for CT of the abdomen and pelvis this afternoon as well as the MRI of the brain. Of note earlier today the patient did have a bradycardic episode in the 30s and spontaneously came out of it to a normal sinus rhythm. Family at bedside and have been updated on the patient's current condition and the plan of care at length all questions have been answered. Chest x-ray and echo have been reviewed as well as today's labs. 02/17/17 patient is being seen examined and evaluated on rounds and the intensive care unit today. Patient's mentation has remained the same overnight continues with intermittent confusion. Infectious disease was put on consult for UTI. MRI of the brain was completed yesterday and shows multifocal predominantly cortical areas of subacute ischemia. CTA of the head shows no high-grade stenosis or occlusion. CT of the abdomen and pelvis was negative at this time. Patient underwent a Doppler of her carotids this morning which reveals no evidence of a hemodynamically significant stenosis in either common or internal carotid artery, elevated flow velocity, right ECA. Venous Doppler studies are pending. She is scheduled to have a DIALLO today as well. 02/18/17, patient seen and evaluated and examined mental status has improved significantly as she does able to respond to simple verbal stimuli given presence of blindness however limits her ability to respond, her OG tube is being clamped and likely to be discontinued later on today besides having borderline hypertension she is relatively more hemodynamically stable, she remains on supplemental oxygen 02/19/17 Patient seen and evaluated and examined in ICU her mental status is significantly improved she is more awake and alert however if she is blind that kind of limits extent of evaluation but she does respond appropriately moving all 4 extremity also on command MRI findings reviewed patient does have a bihemispheric stroke noted recommendation of cardiology as well as neurology for DIALLO and hematology consultation 02/20/17 patient is seen and examined and evaluated today on rounds. Patient is currently hemodynamically stable. She is resting in bed on room air. She continues to have shortness of breath with exertion or extensive conversation. Denies any cough or congestion. 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 Patient does respond appropriately. Patient has neurology and cardiology as well as hematology on consult we'll appreciate recommendations. 02/21/17 patient is seen and examined and evaluated today on rounds. Patient continues to be hemodynamically stable. All labs have been reviewed. Patient will require an outpatient sleep study upon discharge. She is resting up in bed on room air. Does continue to have shortness of breath with exertion. Denies any cough or congestion. Objective - Vital Signs Vital signs: Vital Signs Temp 97.9 F 02/21/17 08:00 Pulse 75 02/21/17 08:47 Resp 18 02/21/17 08:00 BP 150/80 02/21/17 08:00 Pulse Ox 96 02/21/17 08:00 Intake & Output 02/20/17 02/21/17 02/21/17 18:59 06:59 18:59 Intake Total 240 240 Output Total 275 Balance 240 -35 Weight 122 kg Intake: IV 40 240 Sodium Chloride 0.9% 1, 40 240 000 ml @ 20 mls/hr IV . Q24H [facility] Rx#:[id number] Intake, IV Titration 100 Amount Esomeprazole 20 mg In 50 Sodium Chloride 0.9% 50 ml @ 100 mls/hr IVPB DAILY [facility] Rx#:[id number] cefTRIAXone 1,000 mg In 50 Sodium Chloride 0.9% 50 ml @ 100 mls/hr IVPB Q24HR [facility] Rx#:[id number] Oral 100 Output: Urine 275 Uretheral (Epstein) 275 Other: Voiding Method Indwelling Catheter Indwelling Catheter Indwelling Catheter - Exam GENERAL EXAM: Alert, intermittent confusion appears to have him be improved, comfortable in no apparent distress. HEAD: Normocephalic. EYES: Normal reaction of pupils, equal size. NOSE: Clear with pink turbinates. THROAT: No erythema or exudates. NECK: No masses, no JVD. CHEST: No chest wall deformity. LUNGS: Equal air entry slightly coarse with no crackles, wheeze, rhonchi or dullness. CVS: S1 and S2 normal with no audible mumurs, regular rhythm. ABDOMEN: No hepatosplenomegaly, hypoactive bowel sounds, no guarding or rigidity. EXTREMITIES: No edema noted, pedal pulses palpable. SKIN: No rashes CENTRAL NERVOUS SYSTEM: No focal deficits, tone is normal in all 4 extremities. Speech is a phasic with intermittent confusion, ental status has improved in terms response.. - Labs CBC & Chem 7: 02/21/17 06:28 02/21/17 06:28 Labs: Abnormal Lab Results - Last 24 Hours (Table) 02/20/17 02/20/17 02/20/17 Range/Units 11:49 16:33 21:08 Hct (34.0-46.0) % Plt Count (150-450) k/uL BUN (7-17) mg/dL Glucose (74-99) mg/dL POC Glucose (mg/dL) 197 H 272 H 188 H (75-99) mg/dL Total Protein (6.3-8.2) g/dL Albumin (3.5-5.0) g/dL 02/21/17 02/21/17 02/21/17 Range/Units 05:51 06:28 06:28 Hct 46.2 H (34.0-46.0) % Plt Count 121 L (150-450) k/uL BUN 37 H (7-17) mg/dL Glucose 206 H (74-99) mg/dL POC Glucose (mg/dL) 181 H (75-99) mg/dL Total Protein 6.0 L (6.3-8.2) g/dL Albumin 3.0 L (3.5-5.0) g/dL Microbiology - Last 24 Hours (Table) 02/15/17 12:00 Blood Culture - Preliminary Blood No Growth after 120 hours Assessment and Plan Plan: Assessment Hypertensive urgency on admission, improved Acute hypoxic respiratory failure on admission, slowly improving with supplemental oxygen and breathing treatments, patient will likely require sleep studies and further evaluation in the outpatient setting in that regard Probable Acute ischemic left MCA stroke, Acute encephalopathy altered mental status Right upper lobe pneumonia probable aspiration Urinary tract infection Possible bowel obstruction versus gastroparesis related to uncontrolled diabetes mellitus Elevated troponins possibly related to non-ST segment elevated [place] Plan Patient could be discharged from a pulmonary standpoint in the near future. Patient will require an outpatient sleep study upon discharge. Medications have been reviewed and will be continued as ordered. All labs have been reviewed. MRI and CT results have been reviewed. Carotid Doppler has been reviewed. Chest x-ray reviewed Echocardiogram reviewed ejection fraction between 55 and 60%. No evidence of pulmonary hypertension. Continue with pulmonary hygiene, coughing and deep breathing exercises, and supportive care. Supplemental oxygen to maintain oxygen saturations of 92% or better. nebulizer treatments. GI and DVT prophylaxis. We will continue to monitor labs/ results and adjust treatment as necessary. Further recommendations pending. I performed an examination of the patient and discussed their management with the nurse practitioner. I have reviewed the nurse practitioner's note and agree with the documented findings and plan of care.
[2017-02-21 11:42] LABS: Glucose,Whole Blood 225 mg/dL (75-99)
[2017-02-21 12:02] LABS: Hexagonal Phase Neutralization Positive (Negative)
--- NOTE | 2017-02-21 12:03 | PN ---
SUBJECTIVE: This 66 -year-old white female ( ) vision is at 50%, decreased since she was admitted. MRI of the brain shows subendocardial ischemia with no stroke. Vision is decreased. Her mental status is the same as what it normally is and she has no extremity weakness. All tests for embolic phenomenon are negative. Temperature 98.8. Pulse 85. Respiratory rate 18 to 16. Blood pressure 120s over 60s. O2 91%. She is being treated for UTI, aspiration pneumonia, metabolic encephalopathy. She was started on Plavix to go with her aspirin for possible subacute ischemia. Extremities: She has 2 to 3+ pedal edema. Her ileus is improving with soft bowel sounds. NG tube has been removed. S1, S2. Neck is no JVD. ( ) Ear canals within normal limits. White count 6.5. Hemoglobin 15.3. Platelets 116. ASSESSMENT AND PLAN: 1. Hypertensive emergency improved. 2. Acute hypoxemic respiratory failure secondary to aspiration pneumonia, improving. 3. Obstructive sleep apnea, workup as an outpatient. 4. Metabolic encephalopathy improving. 5. Possible subendocardial ischemia with microperfusion to the occipital areas causing decrease in vision. It is questionable at this time. No acute stroke is seen on the MRI. 6. Urinary tract infection. 7. Right upper lobe pneumonia. 8. Ileus versus small bowel obstruction. 9. Urinary tract infection being treated with antibiotics. 10. Elevated troponins, unclear etiology, continue current treatment. 11. Failing broad spectrum antibiotic oxygenation. 12. Accu-Cheks. 13. Plavix and aspirin. 14. PT/OT. 15. Await vision to improve. [facility]
--- NOTE | 2017-02-21 16:04 | P.PN ---
Subjective Principal diagnosis: CVA Pt seen today in follow up, daughter is at bedside, pt denies any physical c/o today, she is tired. Objective - Vital Signs Vital signs: Vital Signs Temp 97.0 F L 02/21/17 11:52 Pulse 78 02/21/17 13:59 Resp 18 02/21/17 11:52 BP 125/64 02/21/17 11:52 Pulse Ox 92 L 02/21/17 11:52 Intake & Output 02/20/17 02/21/17 02/21/17 18:59 06:59 18:59 Intake Total 240 240 160 Output Total 275 Balance 240 -35 160 Weight 122 kg Intake: IV 40 240 160 Sodium Chloride 0.9% 1, 40 240 160 000 ml @ 20 mls/hr IV . Q24H [facility] Rx#:[id number] Intake, IV Titration 100 Amount Esomeprazole 20 mg In 50 Sodium Chloride 0.9% 50 ml @ 100 mls/hr IVPB DAILY [facility] Rx#:[id number] cefTRIAXone 1,000 mg In 50 Sodium Chloride 0.9% 50 ml @ 100 mls/hr IVPB Q24HR [facility] Rx#:[id number] Oral 100 Output: Urine 275 Uretheral (Epstein) 275 Other: Voiding Method Indwelling Catheter Indwelling Catheter Indwelling Catheter # Voids 0 - Exam WD, obese, laying in bed, opens eyes to voice, answers questions with yes/no answers. - Labs CBC & Chem 7: 02/21/17 06:28 02/21/17 06:28 Labs: Abnormal Lab Results - Last 24 Hours (Table) 02/20/17 02/20/17 02/20/17 Range/Units 09:34 16:33 21:08 Hct (34.0-46.0) % Plt Count (150-450) k/uL Lupus Anticoag aPTT 51 H (<43) Sec(s) Lupus Anticoag PTT Mix 47 H (<43) Sec(s) Lupus Hexagonal Phase Positive H (Negative) BUN (7-17) mg/dL Glucose (74-99) mg/dL POC Glucose (mg/dL) 272 H 188 H (75-99) mg/dL Total Protein (6.3-8.2) g/dL Albumin (3.5-5.0) g/dL 02/21/17 02/21/17 02/21/17 Range/Units 05:51 06:28 06:28 Hct 46.2 H (34.0-46.0) % Plt Count 121 L (150-450) k/uL Lupus Anticoag aPTT (<43) Sec(s) Lupus Anticoag PTT Mix (<43) Sec(s) Lupus Hexagonal Phase (Negative) BUN 37 H (7-17) mg/dL Glucose 206 H (74-99) mg/dL POC Glucose (mg/dL) 181 H (75-99) mg/dL Total Protein 6.0 L (6.3-8.2) g/dL Albumin 3.0 L (3.5-5.0) g/dL 02/21/17 Range/Units 11:40 Hct (34.0-46.0) % Plt Count (150-450) k/uL Lupus Anticoag aPTT (<43) Sec(s) Lupus Anticoag PTT Mix (<43) Sec(s) Lupus Hexagonal Phase (Negative) BUN (7-17) mg/dL Glucose (74-99) mg/dL POC Glucose (mg/dL) 225 H (75-99) mg/dL Total Protein (6.3-8.2) g/dL Albumin (3.5-5.0) g/dL Microbiology - Last 24 Hours (Table) 02/15/17 12:00 Blood Culture - Final Blood No Growth after 144 hours Assessment and Plan (1) CVA (cerebral vascular accident) Narrative/Plan: Resulted labs of hypercoaguable work up this far have not indicated a condition that would require anticoagulation therapy. Hematology recommendations when complete hypercoaguable work up is resulted. did discuss with daughter at bedside, all questions answered. Will follow up. Status: Acute
[2017-02-21 17:10] LABS: Glucose,Whole Blood 215 mg/dL (75-99)
--- NOTE | 2017-02-21 18:29 | P.PN ---
Subjective This patient is a 66 year old female seen in the ICU today for evaluation of altered mental status and confusion. The patient was seen on consultation yesterday in the ICU after she was found unresponsive at home. Boyfriend had brought her to the emergency room for further evaluation as he could not arouse her. Patient underwent an initial computed tomography scan of the brain which revealed a lucency in the left parietal lobe. She was subsequently admitted to the intensive care unit where she was seen on neurology consultation yesterday. Patient appeared to have evidence of encephalopathy. She was nonverbal. She was sent for MRI of the brain today. MRI reveals multifocal areas of acute cortical infarct. This suggests possibility of embolic stroke phenomenona. Some history was obtained today by to the patient's daughter at bedside in the ICU. Apparently they have also noted today that she is slightly more responsive but still has difficulty with her vision. We reviewed the results of the MRI today in detail with both of the daughters at bedside. She does have evidence of multiple strokes involving both hemispheres of the brain including the occipital lobe. She may have some visual impairment due to this occipital infarct. The patient continues to demonstrate gaze deviation to the right as she did yesterday. We are recommending a cardiology consultation for possible DIALLO procedure for this patient. DIALLO was completed today and is reported negative for any evidence of atrial thrombus or PFO. We'll await further recommendations from cardiology. She did undergo EEG testing today which was reviewed. EEG reveals moderate slowing. We would also recommend a CT angiogram of the head and neck be done to further evaluate for vascular occlusive disease especially intracranial producing these multiple infarcts. CTA angiogram of the head and neck was completed today. These tests have come back negative for any evidence of high-grade stenosis or occlusion. We have recommended a hematology consultation for a hypercoagulable workup in this patient with cryptogenic stroke. We will obtain a MRA of the vertebrals and carotids for further evaluation. MR angiogram of the head and neck was completed today. Impression is normal [place] with both anterior and posterior circulation. Cervical vascular disease was noted. MRA of the carotids indicated no significant stenosis. Atheromatous changes were noted with tortuosity present in the internal carotid arteries. 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 Given the extent of her bilateral strokes the exact etiology still remains unclear. The patient continues to do fairly well in the ICU today. There is ongoing improvement in her overall mental status as well. We are awaiting further evaluation from Dr. Gallardo and a hematology assessment for hypercoagulable state as a cause for stroke in this patient. The patient was seen today by Dr. Tian from hematology. His formal consultation is pending today. His impression is to rule out other causes of embolic phenomenon for this patient. As noted DIALLO is negative for any evidence of atrial thrombus or PFO. He is doubting primary hypercoagulable state in this patient. Other possibilities include antiphospholipid syndrome, low-grade DIC, an occult malignancy. We will await further recommendations pending laboratory test results for this patient. Her case was once again discussed with her daughter is at bedside. There were updated on all of her current test results and neurological findings. Her overall prognosis at this time remains very guarded. We discussed all of her neurological exam findings and test results in detail with both of her daughters at bedside. Her anticardiolipin antibody test also came back negative today. We will start the patient on Plavix for secondary stroke prevention at this time. She should be evaluated for subacute rehab at the time of discharge planning. We have put a formal consult for Dr. Putnam today for possible inpatient rehab. Dr. Mcleod has also consulted ophthalmology. We are a awaiting their consultation. 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 We will await further assessment from ophthalmology. Given the extent of her multiple strokes we would also recommend a consultation with rheumatology for further assessment and evaluation for DIG[employer] PERFORMANCE ANALYST vasculitis. We have discussed all of these findings in detail today with the patient's daughter at bedside. All of her questions were answered. She is in full agreement with our current treatment plans. We will continue close neurological follow-up of this patient. Her overall prognosis remains guarded. Objective - Vital Signs Vital signs: Vital Signs Temp 98.5 F 02/21/17 04:00 Pulse 73 02/21/17 04:00 Resp 02/21/17 04:00 BP 162/81 02/21/17 04:00 Pulse Ox 93 L 02/21/17 04:00 Intake & Output 02/20/17 02/21/17 02/21/17 18:59 06:59 18:59 Intake Total 240 240 Output Total 275 Balance 240 -35 Weight 122 kg Intake: IV 40 240 Sodium Chloride 0.9% 1, 40 240 000 ml @ 20 mls/hr IV . Q24H [facility] Rx#:[id number] Intake, IV Titration 100 Amount Esomeprazole 20 mg In 50 Sodium Chloride 0.9% 50 ml @ 100 mls/hr IVPB DAILY [facility] Rx#:[id number] cefTRIAXone 1,000 mg In 50 Sodium Chloride 0.9% 50 ml @ 100 mls/hr IVPB Q24HR [facility] Rx#:[id number] Oral 100 Output: Urine 275 Uretheral (Epstein) 275 Other: Voiding Method Indwelling Catheter Indwelling Catheter - Exam Physical examination: PHYSICAL EXAMINATION: Patient is resting comfortably in bed. VITAL SIGNS: Blood pressure is [138/78]. Heart rate is [88]. Respiration is [18] . Temperature is [97.2]. HEENT: Head is atraumatic, neck is supple, there were no carotid bruits. CHEST: Lungs are clear to auscultation and percussion. CARDIAC: S1, S2 normal rate and rhythm. There is no murmur. ABDOMEN: Soft and nontender. Bowel sounds are present. EXTREMITIES: There is no pedal edema. Peripheral pulses are present. Neurological examination: Patient is slightly more awake today. Her speech is slightly aphasic. She does continue to demonstrate visual impairment bilaterally. Her memory and intellectual functions are impaired. She has no focal motor deficit on examination. Deep tendon reflexes are symmetric 1+. She is showing more weakness in her left upper extremity as well as facial droop. Plantar responses flexor bilaterally. Patient is showing slight improvement in her mental status today as compared to yesterday. - Labs CBC & Chem 7: 02/21/17 06:28 02/21/17 06:28 Labs: Abnormal Lab Results - Last 24 Hours (Table) 02/20/17 02/20/17 02/20/17 Range/Units 11:49 16:33 21:08 Hct (34.0-46.0) % Plt Count (150-450) k/uL POC Glucose (mg/dL) 197 H 272 H 188 H (75-99) mg/dL 02/21/17 02/21/17 Range/Units 05:51 06:28 Hct 46.2 H (34.0-46.0) % Plt Count 121 L (150-450) k/uL POC Glucose (mg/dL) 181 H (75-99) mg/dL Microbiology - Last 24 Hours (Table) 02/15/17 12:00 Blood Culture - Preliminary Blood No Growth after 120 hours Assessment and Plan (1) Acute ischemic left MCA stroke Status: Acute Code(s): I63.512 - CEREB INFRC D/T UNSP OCCLS OR STENOS OF LEFT MID CEREB ART (2) Acute encephalopathy Status: Acute Code(s): G93.40 - ENCEPHALOPATHY, UNSPECIFIED (3) UTI (urinary tract infection) Status: Acute Code(s): N39.0 - URINARY TRACT INFECTION, SITE NOT SPECIFIED (4) Cellulitis Status: Acute Code(s): L03.90 - CELLULITIS, UNSPECIFIED (5) Diabetes Status: Acute Code(s): E11.9 - TYPE 2 DIABETES MELLITUS WITHOUT COMPLICATIONS Plan: This patient is a 66-year-old female who was seen today on the selective care floor following transfer out of the intensive care unit recently. Patient was admitted with acute stroke syndrome. She is undergone extensive evaluation for stroke as outlined above. We have consulted Dr. Dai for possible inpatient rehab placement for this patient. She has been started on Plavix for secondary stroke prevention. Hematology has ruled out coagulopathy defect in this patient at this time. We have consulted rheumatology for evaluation of D[employer]FOR[employer] ANALYST vasculitis. Ophthalmology has been also consulted for further evaluation of her visual field defect secondary to her occipital stroke. We will continue close neurological follow-up of this patient. Case was discussed at length with the patient's daughter and at bedside. All of their questions were answered. Her overall prognosis at this time remains very guarded.
[2017-02-21] MEDS: SODIUM CHLORIDE 0.9% 1,000 ML IV SCH (18:34)
[2017-02-21 21:04] LABS: Glucose,Whole Blood 230 mg/dL (75-99)
[2017-02-22] MEDS: NITROGLYCERIN OINT 1 INCH/GM PACKET TOPICAL SCH ×2 (03:36→07:55)
--- NOTE | 2017-02-22 05:13 | CONS ---
DATE OF CONSULTATION: 02/21/2017 HISTORY: This is a 66-year-old female who presented to the emergency room on February 15, 2017 for an altered mental state. The patient was found unresponsive and was ultimately transferred by EMS to the hospital. The patient was admitted initially into the intensive care unit and is currently resting comfortably on the hospital floor. In interviewing this patient, she does not appear to be aware of her surroundings and was not giving definitive answers to questions that were asked. I was asked to evaluate her vision and give an ophthalmic evaluation, but this proved difficult as it was not clear if the patient was able to understand the questions that were posed to her. OBJECTIVE: VISUAL ACUITY: Again, due to the patient's altered mental status, this was difficult to ascertain. She was not able to identify the number of fingers I held up and was not able to answer when a light was turned on or off either eye. I was not able to objectively ascertain this patient's visual acuity. PUPILS: The right pupil was fixed and dilated at 6 mm. The left pupil was reactive and measured 2 mm in diameter. There was no afferent defect. Extraocular movements were full in all gaze positions. On penlight exam, the lids were normal. The conjunctiva was quiet. Both corneas were clear. The anterior chambers were deep and well formed. The irises were normal and the patient had well centered lenses in both sides. FUNDUS: There was normal appearing ( ) vessels and discs. IMPRESSION: 1. Cerebrovascular accident involving the left side of the brain: It is likely this patient has significant visual field loss especially to the right side of her lenz. It was difficult to ascertain what is present due to her ongoing confusion. Further evaluation later down the line using computerized field testing would likely be helpful. 2. Anisocoria. This patient's asymmetric pupil seems to be pharmacologic in origin and I noticed that she has been administered breathing treatments for ongoing lung disease. I suspect there has been some cross contamination between this patient's medication to either to her fingers and then to her right eye. The pupil will likely stay dilated until this has worn off. 3. Diabetic retinopathy. Closer evaluation of this patient's retina would be indicated upon discharge from the hospital. I asked this patient if she has obtained eye exams in the past and she says that she has though she does not know who or where they were performed. I asked if her vision has been affected throughout her history and she said in fact that her vision was decreased several years ago, but she is not sure if more recently her vision has been affected. Overall, it was difficult to obtain an accurate history and I would recommend closer scrutiny and follow up with this patient upon discharge from the hospital. TAVIA
[2017-02-22 06:12] LABS: Glucose,Whole Blood 190 mg/dL (75-99)
[2017-02-22] MEDS: INSULIN LISPRO (humaLOG) 300 UNIT/3 ML VIAL SQ SCH ×4 (07:05→21:13)
[2017-02-22] MEDS: FUROSEMIDE 10 MG/ML 4 ML VIAL IV SCH (07:55)
[2017-02-22] MEDS: ENOXAPARIN 40 MG/0.4 ML SYRINGE SQ SCH (07:55)
[2017-02-22] MEDS: FAMOTIDINE 20 MG TAB PO SCH (07:55)
[2017-02-22] MEDS: CLOPIDOGREL 75 MG TAB PO SCH (07:55)
[2017-02-22] MEDS: IPRATROPIUM-ALBUTEROL 3 ML NEB INHALATION SCH ×3 (08:15→20:34)
[2017-02-22] MEDS ORDERED: SODIUM CHLORIDE 0.9% 1,000 ML IV SCH (08:45)
--- NOTE | 2017-02-22 10:17 | P.CONS ---
History of Present Illness - Chief Complaint Gait disturbance - History of Present Illness I had the op to see patient for inpatient rehab consultation with regard to gait disturbance, mental status change, encephalopathy. She was admitted to [facility] February 15 found unresponsive with diagnosis of mental status change and encephalopathy. Seen in ICU for by Drs. Snyder and larry the probably. Vivienne Skinner who has diagnosed left MCA infarct. Seen by surgery for NG tube. Dr. Fuentes and Dr. Dr. Steele. Workup includes chest CTA is negative for PE but positive for cardiomegaly. Abdominal x-ray for NG tube placement. CT of abdomen and pelvis negative. Angios CT demonstrates at this chronic changes ICA arteries. Carotid Doppler negative. Venous Doppler negative for PE. Chest x-rays followed for cardiomegaly and interstitial lung disease. Had MRI/MRA demonstrates atheromatous change and tortuosity of the internal carotids. PT reports two-person total assistance for bed mobility. OT reports two-person total assistance for bathing and dressing. Unable to assess toileting or functional debility. Speech therapy demonstrates significant cognitive problems. Previous functional history as elicited patient and brother: 66-year-old right- handed female who lives in a trailer home with boyfriend. Unemployed. History smoking, perhaps currently at pack every 3 days. Denies alcohol. Independent with cooking, laundry, sponge bath and gait with quad cane. Does not drive. Dr. Moe Mcleod regular doctor. Family history of mother of female cancer. Review of Systems Review of systems: Note patient denied any specific problems so ROS glean from exam of patient and chart. ENT: Denies sneezes or discharge. Eyes: Denies discharge or photophobia. Cardiac: Denies chest pain or palpitation. Pulmonary: Denies cough or shortness of breath. Breast: Denies discharge or lumps. Gastrointestinal: Denies nausea, emesis, constipation, diarrhea. Genitourinary: Denies discharge or frequency. Musculoskeletal: Denies muscle or bone aches. Neurologic: Generalized weakness and definite confusion/mental status change. Endocrine: Denies shakes or sweats. Oncology: Denies cancers. Dermatologic: Denies rash, itching, pruritus. ALLERGY/immunology: Denies sneezes, rashes. Past Medical History Past Medical History: Diabetes Mellitus, Deep Vein Thrombosis (DVT), Eye Disorder, Hyperlipidemia, Hypertension Additional Past Medical History / Comment(s): NT, EDEMA PAPO FEET. DIABETIC RETINOPATHY, osteomyelitis of the right calcaneus, Melendez grade 3 diabetic ulcer to the right heel, bilateral buttocks decubitus ulcers. History of Any Multi-Drug Resistant Organisms: None Reported Past Surgical History: Appendectomy, Back Surgery, Section, Cholecystectomy, Hernia Repair, Tubal Ligation Additional Past Surgical History / Comment(s): RT EYE SURG for diabetic retinopathy, lumbar fusion, PAPO FOOT SPUR SURG. Picc insertion. Past Anesthesia/Blood Transfusion Reactions: No Reported Reaction Past Psychological History: No Psychological Hx Reported Smoking Status: Current every day smoker Past Alcohol Use History: None Reported Additional Past Alcohol Use History / Comment(s): Patient was a smoker of half a pack of cigarettes per day for 27 years and quit when she was 43 years of age. She denies any medical marijuana, marijuana, street drug or alcohol use. 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 She does have a dog in the home and lives with her boyfriend. She denies any recent travel. Past Drug Use History: None Reported - Past Family History Mother Family Medical History: Cancer, Diabetes Mellitus Additional Family Medical History / Comment(s): mother is . Father History Unknown: Yes Daughter(s) Family Medical History: Diabetes Mellitus Medications and Allergies Home Medications Medication Instructions Recorded Confirmed Type Lisinopril 40 mg PO DAILY 06/06/14 02/15/17 History HYDROcodone/APAP 7.5-325MG [Closplint 1 tab PO Q6H PRN 04/27/15 02/15/17 History 7.5-325] Insulin Aspart Protam & Aspart 40 unit SQ BID 02/15/17 02/15/17 History [Novolog Mix 70-30 Flexpen Syrn] Allergies Allergy/AdvReac Type Severity Reaction Status Date / Time No Known Allergies Allergy Verified 02/15/17 12:18 Physical Exam Vitals: Vital Signs Temp Pulse Pulse Resp BP Pulse Ox 02/22/17 08:26 80 02/22/17 08:15 80 02/22/17 08:00 97.4 F L 56 L 16 163/72 93 L 02/22/17 04:00 99.0 F 65 18 122/66 95 02/22/17 00:00 77 18 159/70 94 L 02/21/17 20:01 84 02/21/17 20:00 98.2 F 71 18 160/74 93 L 02/21/17 19:46 84 02/21/17 16:00 97.2 F L 88 18 138/78 95 02/21/17 13:59 78 02/21/17 13:46 76 02/21/17 11:52 97.0 F L 78 18 125/64 92 L Intake and Output 02/21/17 02/22/17 02/22/17 22:59 06:59 14:59 Intake Total 50 Output Total 1000 825 200 Balance -1000 -825 -150 Intake: Oral 50 Output: Urine 1000 825 200 Uretheral (Epstein) 200 200 Other: Voiding Method Indwelling Catheter Indwelling Catheter Indwelling Catheter Weight 119 kg Skin: Good color, texture, turgor. General: Obese and comfortable appearance. Head: Normocephalic, atraumatic. Eyes: Symmetric. Pupils equal round. Ears: Symmetric. Hearing within normal limits. Mouth: Clear. Neck: Supple. Carotid without bruit. Cardiac: Regular rate and rhythm. Lungs: Clear anteriorly and posteriorly. Abdomen: Soft active nontender, obese. Extremities: Decreased tone throughout. Arthritic changes consistent with age, at most. Neurological: Mental status: General alert, cooperative, slowed mentation process though. Cranial nerves: Symmetric facial tone and trapezius. Motor: Active movement all 4 limbs but has difficulty elevating limbs fully off of bed. Sensation: Intact throughout. DTRs: Symmetric and equal throughout. Mobility: Not attempt to sit or stand on my own is obviously require more than one person physical assistance. Results CBC & Chem 7: 02/21/17 06:28 02/21/17 06:28 Labs: Abnormal Lab Results - Last 24 Hours (Table) 02/20/17 02/21/17 02/21/17 Range/Units 09:34 11:40 17:09 Lupus Anticoag aPTT 51 H (<43) Sec(s) Lupus Anticoag PTT Mix 47 H (<43) Sec(s) Lupus Hexagonal Phase Positive H (Negative) POC Glucose (mg/dL) 225 H 215 H (75-99) mg/dL 02/21/17 02/22/17 Range/Units 21:02 06:11 Lupus Anticoag aPTT (<43) Sec(s) Lupus Anticoag PTT Mix (<43) Sec(s) Lupus Hexagonal Phase (Negative) POC Glucose (mg/dL) 230 H 190 H (75-99) mg/dL Microbiology - Last 24 Hours (Table) 02/15/17 12:00 Blood Culture - Final Blood No Growth after 144 hours Chest x-ray: report reviewed (Followed for cardiomegaly and interstitial lung disease) Abdominal x-ray: report reviewed (Negative.) CT scan - abdomen: report reviewed (Negative.) CT scan - pelvis: report reviewed (Negative.) MRI - head: report reviewed (Motor I/MRA consistent with atheromatous changes and tortuosity internal carotid.) Assessment and Plan (1) Acute ischemic left MCA stroke Status: Acute Plan: Pressure and: 1. Gait disturbance with mental status change and confusion. 2. Acute left MCA infarct. 3. Encephalopathy. 4. UTI. 5. Osteomyelitis right calcaneus. 6. Morbid obesity. 7. Hypertension. 8. Dyslipidemia. 9. Diabetes. Comments and plan: At this time PT, OT, [employer] ongoing. Patient currently with poor endurance and poor understanding. Rehab prognosis currently guarded. We' ll follow closely with yourself.
--- NOTE | 2017-02-22 11:04 | P.PN ---
Subjective 02/15/17- This is a 58-year-old female to the ER for altered mental status. Patient was found by boyfriend today being unresponsive, EMS was called to patient's house, patient is unable to give history secondary to critical condition, history is obtained from EMS and the patient's chart. Patient and his boyfriend deny any drug or alcohol abuse. No known trauma history. The patient has been last seen yesterday before she went to bed. She is minimally arousable throughout the night and became unresponsive this morning then eventually brought into the emergency department she however is maintaining her airway and arterial blood gas has been reviewed hyperventilation oxygen is fairly adequate 02/16/17 upon examination today the patient is seen and examined in the intensive care unit. The patient's mentation has slightly improved she does respond to questions however sometimes not appropriately, continues to have intermittent confusion. Does recognize some of her children but not all of them. Patient continues on 2 L of supplemental oxygen via nasal cannula. Patient did require the inserts and of an NG tube overnight she has had approximately [address] Steele has been consult it, for possible bowel obstruction. Chest x-ray of the abdomen is negative patient is going for CT of the abdomen and pelvis this afternoon as well as the MRI of the brain. Of note earlier today the patient did have a bradycardic episode in the 30s and spontaneously came out of it to a normal sinus rhythm. Family at bedside and have been updated on the patient's current condition and the plan of care at length all questions have been answered. Chest x-ray and echo have been reviewed as well as today's labs. 02/17/17 patient is being seen examined and evaluated on rounds and the intensive care unit today. Patient's mentation has remained the same overnight continues with intermittent confusion. Infectious disease was put on consult for UTI. MRI of the brain was completed yesterday and shows multifocal predominantly cortical areas of subacute ischemia. CTA of the head shows no high-grade stenosis or occlusion. CT of the abdomen and pelvis was negative at this time. Patient underwent a Doppler of her carotids this morning which reveals no evidence of a hemodynamically significant stenosis in either common or internal carotid artery, elevated flow velocity, right ECA. Venous Doppler studies are pending. She is scheduled to have a DIALLO today as well. 02/18/17, patient seen and evaluated and examined mental status has improved significantly as she does able to respond to simple verbal stimuli given presence of blindness however limits her ability to respond, her OG tube is being clamped and likely to be discontinued later on today besides having borderline hypertension she is relatively more hemodynamically stable, she remains on supplemental oxygen 02/19/17 Patient seen and evaluated and examined in ICU her mental status is significantly improved she is more awake and alert however if she is blind that kind of limits extent of evaluation but she does respond appropriately moving all 4 extremity also on command MRI findings reviewed patient does have a bihemispheric stroke noted recommendation of cardiology as well as neurology for DIALLO and hematology consultation 02/20/17 patient is seen and examined and evaluated today on rounds. Patient is currently hemodynamically stable. She is resting in bed on room air. She continues to have shortness of breath with exertion or extensive conversation. Denies any cough or congestion. 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 Patient does respond appropriately. Patient has neurology and cardiology as well as hematology on consult we'll appreciate recommendations. 02/21/17 patient is seen and examined and evaluated today on rounds. Patient continues to be hemodynamically stable. All labs have been reviewed. Patient will require an outpatient sleep study upon discharge. She is resting up in bed on room air. Does continue to have shortness of breath with exertion. Denies any cough or congestion. 02/22/17- is being seen examined and evaluated today on rounds. She continues to be lethargic. Has minimal involvement with PT OT due to low endurance. Continues to be short of breath with exertion and/or activity. Currently she is resting up in bed on room air. Occasionally has a dry cough. New consults for hematology as well as Dr. Putnam, were initiated, appreciate recommendations. Objective - Vital Signs Vital signs: Vital Signs Temp 97.4 F L 02/22/17 08:00 Pulse 80 02/22/17 08:26 Resp 16 02/22/17 08:00 BP 163/72 02/22/17 08:00 Pulse Ox 93 L 02/22/17 08:00 Intake & Output 02/21/17 02/22/17 02/22/17 18:59 06:59 18:59 Intake Total 160 50 Output Total 8080 473 1872 Balance -840 -380 -950 Weight 119 kg Intake: IV 160 Sodium Chloride 0.9% 1, 160 000 ml @ 20 mls/hr IV . Q24H [facility] Rx#:[id number] Oral 50 Output: Urine 0089 784 1050 Uretheral (Epstein) 200 200 Other: Voiding Method Indwelling Catheter Indwelling Catheter Indwelling Catheter # Voids 0 # Bowel Movements 0 - Exam GENERAL EXAM: Alert, intermittent confusion appears to have him be improved, comfortable in no apparent distress. HEAD: Normocephalic. EYES: Normal reaction of pupils, equal size. NOSE: Clear with pink turbinates. THROAT: No erythema or exudates. NECK: No masses, no JVD. CHEST: No chest wall deformity. LUNGS: Equal air entry slightly coarse with no crackles, wheeze, rhonchi or dullness. CVS: S1 and S2 normal with no audible mumurs, regular rhythm. ABDOMEN: No hepatosplenomegaly, hypoactive bowel sounds, no guarding or rigidity. EXTREMITIES: No edema noted, pedal pulses palpable. SKIN: No rashes CENTRAL NERVOUS SYSTEM: No focal deficits, tone is normal in all 4 extremities. Speech is a phasic with intermittent confusion, ental status has improved in terms response.. - Labs CBC & Chem 7: 02/21/17 06:28 02/21/17 06:28 Labs: Abnormal Lab Results - Last 24 Hours (Table) 02/20/17 02/21/17 02/21/17 Range/Units 09:34 11:40 17:09 Lupus Anticoag aPTT 51 H (<43) Sec(s) Lupus Anticoag PTT Mix 47 H (<43) Sec(s) Lupus Hexagonal Phase Positive H (Negative) POC Glucose (mg/dL) 225 H 215 H (75-99) mg/dL 02/21/17 02/22/17 Range/Units 21:02 06:11 Lupus Anticoag aPTT (<43) Sec(s) Lupus Anticoag PTT Mix (<43) Sec(s) Lupus Hexagonal Phase (Negative) POC Glucose (mg/dL) 230 H 190 H (75-99) mg/dL Microbiology - Last 24 Hours (Table) 02/15/17 12:00 Blood Culture - Final Blood No Growth after 144 hours Assessment and Plan Plan: Assessment Hypertensive urgency on admission, improved Acute hypoxic respiratory failure on admission, slowly improving with supplemental oxygen and breathing treatments, patient will likely require sleep studies and further evaluation in the outpatient setting in that regard Probable Acute ischemic left MCA stroke, Acute encephalopathy altered mental status Right upper lobe pneumonia probable aspiration Urinary tract infection Possible bowel obstruction versus gastroparesis related to uncontrolled diabetes mellitus Elevated troponins possibly related to non-ST segment elevated AL Plan Patient could be discharged from a pulmonary standpoint in the near future. Patient will require an outpatient sleep study upon discharge. Repeat chest x- ray in the morning. Initiate and encourage incentive spirometer. Medications have been reviewed and will be continued as ordered. All labs have been reviewed. MRI and CT results have been reviewed. Carotid Doppler has been reviewed. Echocardiogram reviewed ejection fraction between 55 and 60%. No evidence of pulmonary hypertension. Continue with pulmonary hygiene, coughing and deep breathing exercises, and supportive care. Supplemental oxygen to maintain oxygen saturations of 92% or better. nebulizer treatments. GI and DVT prophylaxis. We will continue to monitor labs/results and adjust treatment as necessary. Further recommendations pending. I performed an examination of the patient and discussed their management with the nurse practitioner. I have reviewed the nurse practitioner's note and agree with the documented findings and plan of care.
--- NOTE | 2017-02-22 11:11 | PN ---
DATE OF SERVICE: 02/21/17 REASON FOR FOLLOW UP: Urinary tract infection. INTERVAL HISTORY: The patient is afebrile. She is breathing comfortably. Denies significant chest pain, shortness of breath, cough, no abdominal pain. No nausea or vomiting or diarrhea. On examination, blood pressure 160/54, pulse 84, temperature 98.2, she is 93% on room air. General description is an elderly female lying in the bed, in no distress. Respiratory system: Unlabored breathing. Clear to auscultation anteriorly. Heart: S1, S2 regular rate and rhythm. Abdomen soft, no tenderness. Labs: Hemoglobin 14.9, white count 5.7 with a BUN of 37. Creatinine 0.89. DIAGNOSTIC IMPRESSION AND PLAN: Patient admitted to the hospital with mental status changes which is likely multifactorial, possible component of urinary tract infection. Significantly positive urinalysis. Overall improvement on the Rocephin with plan to finish therapy with po Ceftin. Continue supportive care. MTDD
[2017-02-22 11:34] LABS: Glucose,Whole Blood 210 mg/dL (75-99)
[2017-02-22] MEDS: SODIUM CHLORIDE 0.9% 1,000 ML IV SCH (12:21)
--- NOTE | 2017-02-22 13:39 | P.PN ---
Subjective 66-year-old female being seen on rounds. Currently resting in bed. Patient is awake increasingly more alert this morning. Did note the patient has been seen by Dr. Putnam recommendations reviewed noted and appreciated. Patients being seen by physical occupational therapy. Patient is felt to be a candidate for subacute rehab.. Patient's initial presentation on February 15 to the emergency room after patient was found by her boyfriend to be nonresponsive. The EMS system was activated. There is no history of drug or alcohol abuse and that was no trauma history. Patient was last seen the day before by her boyfriend. Patient was minimally arousable. Patient was brought into the emergency room. Blood gases were obtained did show hyperventilation oxygen fairly adequate. Patient was admitted to the intensive care unit and monitored closely. Patient did have an MRI of the brain done it did show multifocal cortical areas of subacute ischemia probable acute ischemic left MCA stroke. The MRI of the brain was reviewed by neurology Dr. Adams with the family it does show evidence of multiple strokes involving both hemispheres of the brain including the occipital lobe. Patient was noted to have visual impairment due to the occipital infarct cardiology consultation was requested. Patient did have a DIALLO done it was negative for any evidence of a PFO or atrial thrombus. PT OT participated in the plan of care. Additionally hematology oncology consultation was obtained. Patient was worked up for hypercoagulable state as a cause for the stroke. CTA of the head showed no high-grade stenosis or occlusion. CAT scan of the abdomen pelvis was negative. Carotid Dopplers showed no significant hemodynamic stenosis. A rheumatology consultation was requested for evaluation of RELIGIOUS HEALER vasculitis. Patient is also started on Plavix for secondary stroke prevention. Hematology did rule out coagulopathy defect at this time. Ophthalmology consultation was requested for the visual field defect secondary to occipital stroke. Surgical consultation was requested patient was seen and evaluated by surgical service dr clemens there was no evidence of a bowel obstruction patient was tolerating a diet and was no further recommendations by surgical service and there was no surgical intervention warranted at this time Objective - Vital Signs Vital signs: Vital Signs Temp 97.4 F L 02/22/17 08:00 Pulse 56 L 02/22/17 12:00 Resp 16 02/22/17 12:00 BP 163/72 02/22/17 08:00 Pulse Ox 93 L 02/22/17 08:00 Intake & Output 08/0102/22/17 02/22/17 18:59 06:59 18:59 Intake Total 160 50 Output Total 1920 889 4256 Balance -840 -825 -1150 Weight 119 kg Intake: IV 160 Sodium Chloride 0.9% 1, 160 000 ml @ 20 mls/hr IV . Q24H [facility] Rx#:[id number] Oral 50 Output: Urine 1558 489 [id number] Uretheral (Epstein) 200 400 Other: Voiding Method Indwelling Catheter Indwelling Catheter Indwelling Catheter # Voids 0 # Bowel Movements 0 - Exam Physical exam 66-year-old female resting in bed appears in no acute distress. Oriented to self. Continues to have episodes of confusion. Lungs diminished at the bases otherwise adequate air movement on room air Heart S1-S2 audible and regular Abdomen obese soft nontender and only Epstein catheter in place Extremities no edema noted - Labs CBC & Chem 7: 02/21/17 06:28 02/21/17 06:28 Labs: Abnormal Lab Results - Last 24 Hours (Table) 02/21/17 02/21/17 02/22/17 Range/Units 17:09 21:02 06:11 POC Glucose (mg/dL) 215 H 230 H 190 H (75-99) mg/dL 02/22/17 Range/Units 11:32 POC Glucose (mg/dL) 210 H (75-99) mg/dL Microbiology - Last 24 Hours (Table) 02/15/17 12:00 Blood Culture - Final Blood No Growth after 144 hours Assessment and Plan Plan: Impression Acute hypoxic respiratory failure present on admission Morbid obesity BMI 43 Acute metabolic encephalopathy suspect due to acute ischemic left MCA stroke Present on admission right upper lobe pneumonia suspect aspiration Elevated troponins suspect non-ST elevated [place] Cerebrovascular accident involving the left side of the brain Diabetic retinopathy anisocoria Acute ischemic left MCA stroke Present on admission urinary tract infection Cellulitis unspecified Gait disturbance Osteomyelitis right calcaneus Dyslipidemia Type 2 diabetes insulin requiring hemoglobin A1c 6.3 uncontrolled CAT scan abdomen and pelvis suspected ileus small bowel obstruction ruled out Hypertension essential Plan PT OT eval Cardiology is scheduling event recorder to be placed Discharge plan and progress subacute rehab Monitor blood pressure address as indicated Stop the Nitropaste and start lisinopril 10 mg twice a day and monitor the response The above impression and plan of care have been discussed and directed by signing physician. Sweta Reina nurse practitioner acting as scribe for signing physician.
--- NOTE | 2017-02-22 15:56 | P.PN ---
Subjective Principal diagnosis: acute CVA This is a 66-year-old female who was brought to the hospital after her boyfriend found her on response and at home. Apparently she was very upset and did when she came to the emergency room. There is no history of any drug or alcohol abuse. Patient had a computed tomography scan of the brain which revealed lucent area in the left parietal region which was felt could be secondary to artifact. Patient also had a computed tomography scan of the chest which ruled out pulmonary embolism. An echocardiogram showed normal LV function without any significant valvular abnormalities, patient mental status seemed to be gradually improving. She is able to answer a few Questions but according to the nursing staff, her mental status has been fluctuating. Patient is also found to have possible pneumonia and also UTI. EKG showed sinus rhythm without any acute abnormalities. Chest x-ray showed right upper lobe infiltrate at this time. There doesn't seem to be acute cardiac issues. However, patient is acutely ill and is being followed by several consultants.patient underwent a DIALLO by Dr. Dubose which revealed normal aortic valve with trace regurg. Normal mitral valve. Tricuspid valve was suboptimally viewed. Left atrial enlargement noted. Left ventricle shows mild hypertrophy with preserved LV function. Left atrial appendage was free of any clot and there was no shunt across intra-atrial septum. Contrast saline bubble injection did not reveal any signs of crossing of the bubbles across the septum. Aorta showed mild plaque. 02/22/2017. MRI of the brain revealed multifocal predominantly cortical areas of subacute ischemia. I spoke with Dr. Adams today, who shared is concerned regarding a finding no overt cause for the patient's CVA. For this reason it was requested that we reevaluate the patient and consider implantation of a loop recorder. I spoke with the patient this morning in detail, she is agreeable to proceed. Because the patient was on Lovenox, we will hold the Lovenox tomorrow morning and proceed with implantation of a loop recorder tomorrow. This will be done by Dr. Dubose. Objective - Vital Signs Vital signs: Vital Signs Temp 98.3 F 02/22/17 12:00 Pulse 62 02/22/17 15:25 Resp 18 02/22/17 15:25 BP 168/77 02/22/17 12:00 Pulse Ox 94 L 02/22/17 12:00 Intake & Output 02/21/17 02/22/17 02/22/17 18:59 06:59 18:59 Intake Total 160 50 Output Total 8785 269 8222 Balance -840 -825 -1350 Weight 119 kg Intake: IV 160 Sodium Chloride 0.9% 1, 160 000 ml @ 20 mls/hr IV . Q24H [facility] Rx#:[id number] Oral 50 Output: Urine 5982 443 7985 Uretheral (Epstein) 200 600 Other: Voiding Method Indwelling Catheter Indwelling Catheter Indwelling Catheter # Voids 0 # Bowel Movements 0 - Exam PHYSICAL EXAMINATION: HEENT: [Head is atraumatic, normocephalic. Pupils equal, round. Neck is supple. There is no elevated jugular venous pressure.] HEART EXAMINATION: [Heart S1, S2 normal. No murmur or gallop heard.] CHEST EXAMINATION:[ Lungs are clear to auscultation and precussion. No chest wall tenderness is noted on palpation or with deep breathing.] ABDOMEN: [ Soft, nontender. Bowel sounds are heard. No organomegaly noted]. EXTREMITIES:[ 2+ peripheral pulses with no evidence of peripheral edema and no calf tenderness noted]. NEUROLOGIC [patient is awake, alertable to answer questions.] . - Labs CBC & Chem 7: 02/21/17 06:28 02/21/17 06:28 Labs: Abnormal Lab Results - Last 24 Hours (Table) 02/21/17 02/21/17 02/22/17 Range/Units 17:09 21:02 06:11 ESR (0-20) mm/hr POC Glucose (mg/dL) 215 H 230 H 190 H (75-99) mg/dL C-Reactive Protein (<10.0) mg/L 02/22/17 02/22/17 02/22/17 Range/Units 11:32 11:52 11:52 ESR 40 H (0-20) mm/hr POC Glucose (mg/dL) 210 H (75-99) mg/dL C-Reactive Protein 51.4 H (<10.0) mg/L Microbiology - Last 24 Hours (Table) 02/15/17 12:00 Blood Culture - Final Blood No Growth after 144 hours Assessment and Plan (1) Acute encephalopathy Status: Acute (2) Acute ischemic left MCA stroke Status: Acute (3) CVA (cerebral vascular accident) Status: Acute (4) Diabetes Status: Acute Plan: From cardiology's perspective, we will proceed with implantation of a loop recorder tomorrow by Dr. Dubose. DNP note has been reviewed, I agree with a documented findings and plan of care. Patient was seen and examined.
[2017-02-22 16:34] LABS: Glucose,Whole Blood 208 mg/dL (75-99)
--- NOTE | 2017-02-22 17:18 | PN ---
DATE OF SERVICE: 02/22/2017 REASON FOR FOLLOW UP: Urinary tract infection. INTERVAL HISTORY: The patient is afebrile. She is breathing comfortably. Patient denies significant chest pain, shortness of breath, cough. No diarrhea. On examination, blood pressure 153/72 with a pulse of 56, temperature 97.4, saturating 93% room air. GENERAL DESCRIPTION: Elderly female lying in bed in no distress. RESPIRATORY: Unlabored breathing. Clear to auscultation. HEART: S1/S2 regular rate and rhythm. LABS: White count normal ( ). DIAGNOSTIC IMPRESSION: Patient admitted to the hospital with mental status changes, multifactorial. Did have a component of urinary tract infection with improvement on the Rocephin. PLAN: Change the patient to p.o. Ceftin for another five days. Continue supportive care. TAVIA
--- NOTE | 2017-02-22 18:34 | P.PN ---
Subjective Principal diagnosis: CVA, concern for hypercoaguable condition Pt seen today in follow up, son is at bedside, pt does not have any acute c/o, she is weak and tired. Objective - Vital Signs Vital signs: Vital Signs Temp 98.0 F 02/22/17 16:00 Pulse 68 02/22/17 16:00 Resp 18 02/22/17 16:00 BP 164/75 02/22/17 16:00 Pulse Ox 95 02/22/17 16:00 Intake & Output 02/21/17 02/22/17 02/22/17 18:59 06:59 18:59 Intake Total 160 180 Output Total 1204 165 5149 Balance -840 -825 -1620 Weight 119 kg Intake: IV 160 80 Sodium Chloride 0.9% 1, 160 80 000 ml @ 20 mls/hr IV . Q24H [facility] Rx#:[id number] Intake, IV Titration 50 Amount cefTRIAXone 1,000 mg In 50 Sodium Chloride 0.9% 50 ml @ 100 mls/hr IVPB Q24HR [facility] Rx#:[id number] Oral 50 Output: Urine 1579 019 5254 Uretheral (Epstein) 200 600 Other: Voiding Method Indwelling Catheter Indwelling Catheter Indwelling Catheter # Voids 0 # Bowel Movements 0 - Exam WD, obese, laying in bed, more alert today, she has trouble with recall of remote events - Labs CBC & Chem 7: 02/21/17 06:28 02/21/17 06:28 Labs: Abnormal Lab Results - Last 24 Hours (Table) 02/21/17 02/22/17 02/22/17 Range/Units 21:02 06:11 11:32 ESR (0-20) mm/hr POC Glucose (mg/dL) 230 H 190 H 210 H (75-99) mg/dL C-Reactive Protein (<10.0) mg/L 02/22/17 02/22/17 02/22/17 Range/Units 11:52 11:52 15:19 ESR 40 H 36 H (0-20) mm/hr POC Glucose (mg/dL) (75-99) mg/dL C-Reactive Protein 51.4 H (<10.0) mg/L 02/22/17 02/22/17 Range/Units 15:19 16:33 ESR (0-20) mm/hr POC Glucose (mg/dL) 208 H (75-99) mg/dL C-Reactive Protein 50.2 H (<10.0) mg/L Assessment and Plan (1) CVA (cerebral vascular accident) Narrative/Plan: More of the hypercoaguable work up has resulted, none of the findings thus far are indicative of pt stroke being related to a hypercoaguable state. Lupus anticoagulant returned positive but the result could represent a false positive especially when pt is receiving LMWH products so, recommendation is to follow up and reassessment of lupus anticoagulant. There are additional labs that would correlate to venous clotting so Hematology recommends completing hypercoaguable work up outpatient. Status: Acute Plan: Pt will follow with Neurology for stroke management
--- NOTE | 2017-02-22 19:16 | P.CONS ---
History of Present Illness - Reason for Consult Consult date: 02/22/17 R/O RIB STIFFENER AND HEEL DIPPER vasculitis - History of Present Illness This is a 66-year-old female with a past medical history significant for diabetes mellitus, hypertension, hyperlipidemia, DVT, and diabetic retinopathy who presented to the [facility] ER last Thursday 02/15 after her boyfriend found her unresponsive on the floor. Patient's daughter and brother are at her bedside today and answer most questions and tell most of patient's history. Patient's family mentions that patient has been unresponsive like this in the past however at that time it was found to be due to her diabetes. MRI of patient's brain revealed multifocal cortical areas of subacute ischemia with a probable acute ischemic left MCA stroke MRI revealed multiple strokes involving both hemispheres of the brain. CTA of patient's brain was done that showed no high-grade stenosis or occlusion an DIALLO revealed no evidence of thrombus. Hematology has ruled out a coagulopathy defect. Patient's family admits that patient has always had some vision issues and apparently 3 years ago patient had surgery to correct vision in her right eye, however this did not seem to make any improvements. Patient did lose vision for a couple of days and apparently patient normally complains of her low back pain and since the stroke , she has been in no pain at all. Upon speaking with the patient today, she was lying comfortably in her hospital bed. Patient appeared quite tired. Patient denied any joint pains, rashes, shortness of breath, chest pain, or headaches. Pt. also denies fevers, weight loss, night sweats. Looking through patient's labs it appears that she does not have any anemia, acute kidney injury, thrombocytosis, hepatic impairment, or leukocytosis. It also appears that patient was found to have a UTI and right upper lobe pneumonia for which she was treated for. Patient's family tells me that tomorrow a loop recorder will be implanted as the cause of patient's stroke is still unknown. Review of Systems All systems: negative Constitutional: Denies chills, Denies fever Eyes: denies blurred vision, denies pain Ears, nose, mouth and throat: Denies headache, Denies sore throat Cardiovascular: Denies chest pain, Denies shortness of breath Respiratory: Denies cough Gastrointestinal: Denies abdominal pain, Denies diarrhea, Denies nausea, Denies vomiting Genitourinary: Denies dysuria, Denies hematuria Musculoskeletal: Denies myalgias Integumentary: Denies pruritus, Denies rash Neurological: Denies numbness, Denies weakness Psychiatric: Denies anxiety, Denies depression Endocrine: Denies fatigue, Denies weight change Past Medical History Past Medical History: Diabetes Mellitus, Deep Vein Thrombosis (DVT), Eye Disorder, Hyperlipidemia, Hypertension Additional Past Medical History / Comment(s): NT, EDEMA PAPO FEET. DIABETIC RETINOPATHY, osteomyelitis of the right calcaneus, Melendez grade 3 diabetic ulcer to the right heel, bilateral buttocks decubitus ulcers. History of Any Multi-Drug Resistant Organisms: None Reported Past Surgical History: Appendectomy, Back Surgery, Section, Cholecystectomy, Hernia Repair, Tubal Ligation Additional Past Surgical History / Comment(s): RT EYE SURG for diabetic retinopathy, lumbar fusion, PAPO FOOT SPUR SURG. Picc insertion. Past Anesthesia/Blood Transfusion Reactions: No Reported Reaction Past Psychological History: No Psychological Hx Reported Smoking Status: Current every day smoker Past Alcohol Use History: None Reported Additional Past Alcohol Use History / Comment(s): Patient was a smoker of half a pack of cigarettes per day for 27 years and quit when she was 43 years of age. She denies any medical marijuana, marijuana, street drug or alcohol use. 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 She does have a dog in the home and lives with her boyfriend. She denies any recent travel. Past Drug Use History: None Reported - Past Family History Mother Family Medical History: Cancer, Diabetes Mellitus Additional Family Medical History / Comment(s): mother is . Father History Unknown: Yes Daughter(s) Family Medical History: Diabetes Mellitus Medications and Allergies Home Medications Medication Instructions Recorded Confirmed Type Lisinopril 40 mg PO DAILY 06/06/14 02/15/17 History HYDROcodone/APAP 7.5-325MG [[place] 1 tab PO Q6H PRN 04/27/15 02/15/17 History 7.5-325] Insulin Aspart Protam & Aspart 40 unit SQ BID 02/15/17 02/15/17 History [Novolog Mix 70-30 Flexpen Syrn] Allergies Allergy/AdvReac Type Severity Reaction Status Date / Time No Known Allergies Allergy Verified 02/15/17 12:18 Physical Exam Vitals: Vital Signs Temp Pulse Pulse Resp BP Pulse Ox 02/22/17 16:00 98.0 F 68 18 164/75 95 02/22/17 15:25 62 18 02/22/17 13:20 82 02/22/17 13:10 76 02/22/17 12:00 98.3 F 62 18 168/77 94 L 02/22/17 08:26 80 02/22/17 08:15 80 02/22/17 08:00 97.4 F L 56 L 16 163/72 93 L 02/22/17 04:00 99.0 F 65 18 122/66 95 02/22/17 00:00 77 18 159/70 94 L 02/21/17 20:01 84 02/21/17 20:00 98.2 F 71 18 160/74 93 L 02/21/17 19:46 84 Intake and Output 02/22/17 02/22/17 02/22/17 06:59 14:59 22:59 Intake Total 50 130 Output Total 825 1200 600 Balance -825 -1150 -470 Intake: IV 80 Sodium Chloride 0.9% 1, 80 000 ml @ 20 mls/hr IV . Q24H [facility] Rx#:[id number] Intake, IV Titration 50 Amount cefTRIAXone 1,000 mg In 50 Sodium Chloride 0.9% 50 ml @ 100 mls/hr IVPB Q24HR [facility] Rx#:[id number] Oral 50 Output: Urine 825 1200 600 Uretheral (Epstein) 200 400 200 Other: Voiding Method Indwelling Catheter Indwelling Catheter Indwelling Catheter # Bowel Movements 0 Weight 119 kg - Constitutional General appearance: cooperative, obese - EENT Eyes: EOMI (pt gazing to right ) - Neck Neck: no lymphadenopathy - Respiratory Respiratory: bilateral: CTA - Cardiovascular Rhythm: regular Heart sounds: normal: S1, S2 - Gastrointestinal General gastrointestinal: no organomegaly, soft, no tenderness - Integumentary Integumentary: no rash - Neurologic Neurologic: focal deficits (pt oriented to person ) - Psychiatric Psychiatric: no A&O x's 3 Results CBC & Chem 7: 02/21/17 06:28 02/21/17 06:28 Labs: Abnormal Lab Results - Last 24 Hours (Table) 02/21/17 02/22/17 02/22/17 Range/Units 21:02 06:11 11:32 ESR (0-20) mm/hr POC Glucose (mg/dL) 230 H 190 H 210 H (75-99) mg/dL C-Reactive Protein (<10.0) mg/L 02/22/17 02/22/17 02/22/17 Range/Units 11:52 11:52 15:19 ESR 40 H 36 H (0-20) mm/hr POC Glucose (mg/dL) (75-99) mg/dL C-Reactive Protein 51.4 H (<10.0) mg/L 02/22/17 02/22/17 Range/Units 15:19 16:33 ESR (0-20) mm/hr POC Glucose (mg/dL) 208 H (75-99) mg/dL C-Reactive Protein 50.2 H (<10.0) mg/L Assessment and Plan Plan: 1. CVA 2. Diabetes Mellitus At this time, RIB STIFFENER AND HEEL DIPPER vasculitis seems unlikely. I have ordered inflammatory markers, ANCA panel, and DRU to rule out possible underlying autoimmune condition. The only way to definitively confirm primary RIB STIFFENER AND HEEL DIPPER vasculitis is with a brain biopsy, however this is not recommended since additional causes of patient's stroke need to be ruled out first. At this time prednisone is not recommended since patient is diabetic and has additional comorbid conditions. Recommendations are to continue treating patient as a primary stroke and to also r/o possible malignancy. It may be appropriate to order spinal tap to analyze CSF as this while nonspecific may be useful in determining inflammatory v. infectious v. malignant condition. Patient's case was discussed with Dr. Funez who does agree with the above assessment and plan. Time with Patient: Less than 30
--- NOTE | 2017-02-22 19:50 | P.PN ---
Subjective This patient is a 66 year old female seen in the ICU today for evaluation of altered mental status and confusion. The patient was seen on consultation yesterday in the ICU after she was found unresponsive at home. Boyfriend had brought her to the emergency room for further evaluation as he could not arouse her. Patient underwent an initial computed tomography scan of the brain which revealed a lucency in the left parietal lobe. She was subsequently admitted to the intensive care unit where she was seen on neurology consultation yesterday. Patient appeared to have evidence of encephalopathy. She was nonverbal. She was sent for MRI of the brain today. MRI reveals multifocal areas of acute cortical infarct. This suggests possibility of embolic stroke phenomenona. Some history was obtained today by to the patient's daughter at bedside in the ICU. Apparently they have also noted today that she is slightly more responsive but still has difficulty with her vision. We reviewed the results of the MRI today in detail with both of the daughters at bedside. She does have evidence of multiple strokes involving both hemispheres of the brain including the occipital lobe. She may have some visual impairment due to this occipital infarct. The patient continues to demonstrate gaze deviation to the right as she did yesterday. We are recommending a cardiology consultation for possible DIALLO procedure for this patient. DIALLO was completed today and is reported negative for any evidence of atrial thrombus or PFO. We'll await further recommendations from cardiology. She did undergo EEG testing today which was reviewed. EEG reveals moderate slowing. We would also recommend a CT angiogram of the head and neck be done to further evaluate for vascular occlusive disease especially intracranial producing these multiple infarcts. CTA angiogram of the head and neck was completed today. These tests have come back negative for any evidence of high-grade stenosis or occlusion. We have recommended a hematology consultation for a hypercoagulable workup in this patient with cryptogenic stroke. We will obtain a MRA of the vertebrals and carotids for further evaluation. MR angiogram of the head and neck was completed today. Impression is normal [place] with both anterior and posterior circulation. Cervical vascular disease was noted. MRA of the carotids indicated no significant stenosis. Atheromatous changes were noted with tortuosity present in the internal carotid arteries. These findings are not consistent with BUILDING INSPECTOR vasculitis or fibromuscular dysplasia. Given the extent of her bilateral strokes the exact etiology still remains unclear. The patient continues to do fairly well in the ICU today. There is ongoing improvement in her overall mental status as well. We are awaiting further evaluation from Dr. Gallardo and a hematology assessment for hypercoagulable state as a cause for stroke in this patient. The patient was seen today by Dr. Tian from hematology. His formal consultation is pending today. His impression is to rule out other causes of embolic phenomenon for this patient. As noted DIALLO is negative for any evidence of atrial thrombus or PFO. He is doubting primary hypercoagulable state in this patient. Other possibilities include antiphospholipid syndrome, low-grade DIC, an occult malignancy. We will await further recommendations pending laboratory test results for this patient. Her case was once again discussed with her daughter is at bedside. There were updated on all of her current test results and neurological findings. Her overall prognosis at this time remains very guarded. We discussed all of her neurological exam findings and test results in detail with both of her daughters at bedside. Her anticardiolipin antibody test also came back negative today. We will start the patient on Plavix for secondary stroke prevention at this time. She should be evaluated for subacute rehab at the time of discharge planning. We have put a formal consult for Dr. Putnam today for possible inpatient rehab. Patient was seen today by Dr. Putnam. We're waiting his final recommendations for possible inpatient rehab. Dr. Mcleod has also consulted ophthalmology. We are a awaiting their consultation. 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 We will await further assessment from ophthalmology. Patient was seen today by Dr. Vincent. His recommendations have been noted. Given the extent of her multiple strokes we would also recommend a consultation with rheumatology for further assessment and evaluation for BUILDING INSPECTOR vasculitis. Patient was seen by rheumatology today. Their impression is that the patient does not have BUILDING INSPECTOR vasculitis. Will await laboratory test results for other conditions. They are also recommending to rule out underlying malignancy in this patient. We'll defer to Dr. Tian regarding further oncology workup for this patient. We have discussed all of these findings in detail today with the patient's daughter at bedside. All of her questions were answered. She is in full agreement with our current treatment plans. We will continue close neurological follow-up of this patient. Her overall prognosis remains guarded. Objective - Vital Signs Vital signs: Vital Signs Temp 98.0 F 02/22/17 16:00 Pulse 68 02/22/17 16:00 Resp 18 02/22/17 16:00 BP 164/75 02/22/17 16:00 Pulse Ox 95 02/22/17 16:00 Intake & Output 02/22/17 02/22/17 02/23/17 06:59 18:59 06:59 Intake Total 180 Output Total 825 1800 Balance -825 -1620 Weight 119 kg Intake: IV 80 Sodium Chloride 0.9% 1, 80 000 ml @ 20 mls/hr IV . Q24H [facility] Rx#:[id number] Intake, IV Titration 50 Amount cefTRIAXone 1,000 mg In 50 Sodium Chloride 0.9% 50 ml @ 100 mls/hr IVPB Q24HR [facility] Rx#:[id number] Oral 50 Output: Urine 825 1800 Uretheral (Epstein) 200 600 Other: Voiding Method Indwelling Catheter Indwelling Catheter # Bowel Movements 0 - Exam Physical examination: PHYSICAL EXAMINATION: Patient is resting comfortably in bed. VITAL SIGNS: Blood pressure is [164/75]. Heart rate is [68]. Respiration is [18] . Temperature is [98.0]. HEENT: Head is atraumatic, neck is supple, there were no carotid bruits. CHEST: Lungs are clear to auscultation and percussion. CARDIAC: S1, S2 normal rate and rhythm. There is no murmur. ABDOMEN: Soft and nontender. Bowel sounds are present. EXTREMITIES: There is no pedal edema. Peripheral pulses are present. Neurological examination: Patient is slightly more awake today. Her speech is slightly aphasic. She does continue to demonstrate visual impairment bilaterally. Her memory and intellectual functions are impaired. She has no focal motor deficit on examination. Deep tendon reflexes are symmetric 1+. She is showing more weakness in her left upper extremity as well as facial droop. Plantar responses flexor bilaterally. Patient is showing slight improvement in her mental status today as compared to yesterday. - Labs CBC & Chem 7: 02/21/17 06:28 02/21/17 06:28 Labs: Abnormal Lab Results - Last 24 Hours (Table) 02/21/17 02/22/17 02/22/17 Range/Units 21:02 06:11 11:32 ESR (0-20) mm/hr POC Glucose (mg/dL) 230 H 190 H 210 H (75-99) mg/dL C-Reactive Protein (<10.0) mg/L 02/22/17 02/22/17 02/22/17 Range/Units 11:52 11:52 15:19 ESR 40 H 36 H (0-20) mm/hr POC Glucose (mg/dL) (75-99) mg/dL C-Reactive Protein 51.4 H (<10.0) mg/L 02/22/17 02/22/17 Range/Units 15:19 16:33 ESR (0-20) mm/hr POC Glucose (mg/dL) 208 H (75-99) mg/dL C-Reactive Protein 50.2 H (<10.0) mg/L Assessment and Plan (1) Acute ischemic left MCA stroke Status: Acute Code(s): I63.512 - CEREB INFRC D/T UNSP OCCLS OR STENOS OF LEFT MID CEREB ART (2) Acute encephalopathy Status: Acute Code(s): G93.40 - ENCEPHALOPATHY, UNSPECIFIED (3) UTI (urinary tract infection) Status: Acute Code(s): N39.0 - URINARY TRACT INFECTION, SITE NOT SPECIFIED (4) Cellulitis Status: Acute Code(s): L03.90 - CELLULITIS, UNSPECIFIED (5) Diabetes Status: Acute Code(s): E11.9 - TYPE 2 DIABETES MELLITUS WITHOUT COMPLICATIONS Plan: This patient is a 66-year-old female who was seen today on the selective care floor following transfer out of the intensive care unit recently. Patient was admitted with acute stroke syndrome. She is undergone extensive evaluation for stroke as outlined above. We have consulted Dr. Dai for possible inpatient rehab placement for this patient. She has been started on Plavix for secondary stroke prevention. Hematology has ruled out coagulopathy defect in this patient at this time. We have consulted rheumatology for evaluation of BUILDING INSPECTOR vasculitis. Ophthalmology has been also consulted for further evaluation of her visual field defect secondary to her occipital stroke. We reviewed all recommendations today from Dr. Putnam, Dr. Vincent, and Dr. Funez. Recommendations have been noted. Will await possible discharge of this patient to inpatient rehab depending on Dr. Putnam's final recommendations. We will continue close neurological follow-up of this patient. Case was discussed at length with the patient's daughters and at bedside. They have been updated on all of her test results once again today in detail. All of their questions were answered. Her overall prognosis at this time remains very guarded.
[2017-02-22 20:20] LABS: Hepatitis B Surface Ag Index 0.06
[2017-02-22 21:00] LABS: Glucose,Whole Blood 226 mg/dL (75-99)
[2017-02-22] MEDS: LISINOPRIL 10 MG TAB PO SCH (21:13)
[2017-02-23 06:21] LABS: Glucose,Whole Blood 211 mg/dL (75-99)
[2017-02-23] MEDS: INSULIN LISPRO (humaLOG) 300 UNIT/3 ML VIAL SQ SCH ×4 (06:40→21:24)
[2017-02-23] MEDS: IPRATROPIUM-ALBUTEROL 3 ML NEB INHALATION SCH ×3 (07:08→19:37)
[2017-02-23] MEDS: FUROSEMIDE 10 MG/ML 4 ML VIAL IV SCH (07:48)
[2017-02-23] MEDS: CLOPIDOGREL 75 MG TAB PO SCH (07:48)
[2017-02-23] MEDS: FAMOTIDINE 20 MG TAB PO SCH (07:48)
[2017-02-23] MEDS: LISINOPRIL 10 MG TAB PO SCH ×2 (07:49→21:24)
[2017-02-23 08:20] LABS: Anion Gap 10 mmol/L; Blood Urea Nitrogen 26 mg/dL (7-17); Calcium 8.8 mg/dL (8.4-10.2); Carbon Dioxide 29 mmol/L (22-30); Chloride 99 mmol/L (98-107); Glucose 235 mg/dL (74-99); Non-African American GFR(MDRD) >60 (>60 ml/min/1.73 sqM); Potassium 3.8 mmol/L (3.5-5.1); Sodium 138 mmol/L (137-145)
[2017-02-23] MEDS ORDERED: LIDOCAINE 2% INJ 20 MG/ML (20 ML MDV) ONE (10:36)
[2017-02-23] MEDS ORDERED: ceFAZolin 1,000 MG in DEXTROSE/WATER 1 50ML.BAG IVPB STA (10:42)
[2017-02-23] MEDS: SODIUM CHLORIDE 0.9% 1,000 ML IV SCH (10:50)
[2017-02-23] MEDS ORDERED: fentaNYL (PF) 50 MCG/ML 2 ML AMP ONE (10:59)
[2017-02-23] MEDS ORDERED: fentaNYL (PF) 50 MCG/ML 2 ML AMP IV ONE (11:01)
[2017-02-23] MEDS ORDERED: LIDOCAINE 2% INJ 20 MG/ML SQ ONE (11:02)
[2017-02-23] MEDS ORDERED: ACETAMINOPHEN TAB 325 MG TAB PO PRN (11:12)
--- NOTE | 2017-02-23 11:17 | P.PCN ---
Date of Procedure: 02/23/17 Preoperative Diagnosis: Unexplained syncope Postoperative Diagnosis: The same Procedure(s) Performed: Insertion of the loop recorder Implants: Indications for Procedure: Operative Findings: Description of Procedure: This is a 66-year-old female who was admitted to the hospital with CVA which was unexplained. Patient had multiple lesions. DIALLO examination did not show any definite Cardec source of emboli. Patient is advised to have a loop recorder insertion to rule out the possibility of intermittent atrial fibrillation or paroxysmal atrial fibrillation. Patient was brought to the lab in a fasting state. She was prepped and draped in the usual fashion. Patient was given fentanyl for sedation. Patient received conscious sedation with 25 mics of fentanyl. The duration of the sedation is 7 minutes. An incision was made in the third intercostal space on the left side in the standard fashion. Loop recorder was inserted in the usual fashion. A single 2- 0 silk suture was applied. Patient tolerated the procedure well. Plan: Patient will be monitored on the telemetry unit.
--- NOTE | 2017-02-23 11:22 | P.PN ---
Subjective 02/15/17- This is a 58-year-old female to the ER for altered mental status. Patient was found by boyfriend today being unresponsive, EMS was called to patient's house, patient is unable to give history secondary to critical condition, history is obtained from EMS and the patient's chart. Patient and his boyfriend deny any drug or alcohol abuse. No known trauma history. The patient has been last seen yesterday before she went to bed. She is minimally arousable throughout the night and became unresponsive this morning then eventually brought into the emergency department she however is maintaining her airway and arterial blood gas has been reviewed hyperventilation oxygen is fairly adequate 02/16/17 upon examination today the patient is seen and examined in the intensive care unit. The patient's mentation has slightly improved she does respond to questions however sometimes not appropriately, continues to have intermittent confusion. Does recognize some of her children but not all of them. Patient continues on 2 L of supplemental oxygen via nasal cannula. Patient did require the inserts and of an NG tube overnight she has had approximately [address] Steele has been consult it, for possible bowel obstruction. Chest x-ray of the abdomen is negative patient is going for CT of the abdomen and pelvis this afternoon as well as the MRI of the brain. Of note earlier today the patient did have a bradycardic episode in the 30s and spontaneously came out of it to a normal sinus rhythm. Family at bedside and have been updated on the patient's current condition and the plan of care at length all questions have been answered. Chest x-ray and echo have been reviewed as well as today's labs. 02/17/17 patient is being seen examined and evaluated on rounds and the intensive care unit today. Patient's mentation has remained the same overnight continues with intermittent confusion. Infectious disease was put on consult for UTI. MRI of the brain was completed yesterday and shows multifocal predominantly cortical areas of subacute ischemia. CTA of the head shows no high-grade stenosis or occlusion. CT of the abdomen and pelvis was negative at this time. Patient underwent a Doppler of her carotids this morning which reveals no evidence of a hemodynamically significant stenosis in either common or internal carotid artery, elevated flow velocity, right ECA. Venous Doppler studies are pending. She is scheduled to have a DIALLO today as well. 02/18/17, patient seen and evaluated and examined mental status has improved significantly as she does able to respond to simple verbal stimuli given presence of blindness however limits her ability to respond, her OG tube is being clamped and likely to be discontinued later on today besides having borderline hypertension she is relatively more hemodynamically stable, she remains on supplemental oxygen 02/19/17 Patient seen and evaluated and examined in ICU her mental status is significantly improved she is more awake and alert however if she is blind that kind of limits extent of evaluation but she does respond appropriately moving all 4 extremity also on command MRI findings reviewed patient does have a bihemispheric stroke noted recommendation of cardiology as well as neurology for DIALLO and hematology consultation 02/20/17 patient is seen and examined and evaluated today on rounds. Patient is currently hemodynamically stable. She is resting in bed on room air. She continues to have shortness of breath with exertion or extensive conversation. Denies any cough or congestion. 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 Patient does respond appropriately. Patient has neurology and cardiology as well as hematology on consult we'll appreciate recommendations. 02/21/17 patient is seen and examined and evaluated today on rounds. Patient continues to be hemodynamically stable. All labs have been reviewed. Patient will require an outpatient sleep study upon discharge. She is resting up in bed on room air. Does continue to have shortness of breath with exertion. Denies any cough or congestion. 02/22/17- is being seen examined and evaluated today on rounds. She continues to be lethargic. Has minimal involvement with PT OT due to low endurance. Continues to be short of breath with exertion and/or activity. Currently she is resting up in bed on room air. Occasionally has a dry cough. New consults for hematology as well as Dr. Putnam, were initiated, appreciate recommendations. 02/23/17 patient is being seen examined and evaluated today on rounds. Patient is to go for insertion of a loop recorder today with cardiology. Patient continues to be lethargic and shortness of breath with exertion. Currently resting up in bed on room air. She continues to have intermittent confusion. Patient is still having trouble with articulating her words on and off. Objective - Vital Signs Vital signs: Vital Signs Temp 97.9 F 02/23/17 08:00 Pulse 58 L 02/23/17 08:00 Resp 18 02/23/17 08:00 BP 158/70 02/23/17 08:00 Pulse Ox 95 02/23/17 08:00 Intake & Output 02/22/17 02/23/17 02/23/17 18:59 06:59 18:59 Intake Total 180 90 Output Total 1800 500 200 Balance -1620 -500 -110 Weight 117.5 kg Intake: IV 80 40 Sodium Chloride 0.9% 1, 80 40 000 ml @ 20 mls/hr IV . Q24H [facility] Rx#:[id number] Intake, IV Titration 50 50 Amount cefTRIAXone 1,000 mg In 50 50 Sodium Chloride 0.9% 50 ml @ 100 mls/hr IVPB Q24HR [facility] Rx#:[id number] Oral 50 0 Output: Urine 1800 500 200 Uretheral (Epstein) 600 200 100 Other: Voiding Method Indwelling Catheter Indwelling Catheter Indwelling Catheter # Voids 1 # Bowel Movements 0 - Exam GENERAL EXAM: Alert, intermittent confusion appears to have him be improved, comfortable in no apparent distress. HEAD: Normocephalic. EYES: Normal reaction of pupils, equal size. NOSE: Clear with pink turbinates. THROAT: No erythema or exudates. NECK: No masses, no JVD. CHEST: No chest wall deformity. LUNGS: Equal air entry slightly coarse with no crackles, wheeze, rhonchi or dullness. Bases diminished CVS: S1 and S2 normal with no audible mumurs, regular rhythm. ABDOMEN: No hepatosplenomegaly, hypoactive bowel sounds, no guarding or rigidity. EXTREMITIES: No edema noted, pedal pulses palpable. SKIN: No rashes CENTRAL NERVOUS SYSTEM: No focal deficits, tone is normal in all 4 extremities. Speech is a phasic with intermittent confusion, status has improved in terms response.. - Labs CBC & Chem 7: 02/21/17 06:28 02/23/17 05:56 Labs: Abnormal Lab Results - Last 24 Hours (Table) 02/22/17 02/22/17 02/22/17 Range/Units 11:32 11:52 11:52 ESR 40 H (0-20) mm/hr BUN (7-17) mg/dL Glucose (74-99) mg/dL POC Glucose (mg/dL) 210 H (75-99) mg/dL C-Reactive Protein 51.4 H (<10.0) mg/L 02/22/17 02/22/17 02/22/17 Range/Units 15:19 15:19 16:33 ESR 36 H (0-20) mm/hr BUN (7-17) mg/dL Glucose (74-99) mg/dL POC Glucose (mg/dL) 208 H (75-99) mg/dL C-Reactive Protein 50.2 H (<10.0) mg/L 02/22/17 02/23/17 02/23/17 Range/Units 20:50 05:56 06:17 ESR (0-20) mm/hr BUN 26 H (7-17) mg/dL Glucose 235 H (74-99) mg/dL POC Glucose (mg/dL) 226 H 211 H (75-99) mg/dL C-Reactive Protein (<10.0) mg/L Assessment and Plan Plan: Assessment Hypertensive urgency on admission, improved Acute hypoxic respiratory failure on admission, slowly improving with supplemental oxygen and breathing treatments, patient will likely require sleep studies and further evaluation in the outpatient setting in that regard Probable Acute ischemic left MCA stroke, Acute encephalopathy altered mental status Right upper lobe pneumonia probable aspiration Urinary tract infection Possible bowel obstruction versus gastroparesis related to uncontrolled diabetes mellitus Elevated troponins possibly related to non-ST segment elevated [place] Plan Patient could be discharged from a pulmonary standpoint in the near future. Patient will require an outpatient sleep study upon discharge. Currently awaiting chest x-ray to be taken. Initiate and encourage incentive spirometer. Medications have been reviewed and will be continued as ordered. All labs have been reviewed. MRI and CT results have been reviewed. Carotid Doppler has been reviewed. Echocardiogram reviewed ejection fraction between 55 and 60% . No evidence of pulmonary hypertension. Continue with pulmonary hygiene, coughing and deep breathing exercises, and supportive care. Supplemental oxygen to maintain oxygen saturations of 92% or better. nebulizer treatments. GI and DVT prophylaxis. We will continue to monitor labs/results and adjust treatment as necessary. Further recommendations pending. I performed an examination of the patient and discussed their management with the nurse practitioner. I have reviewed the nurse practitioner's note and agree with the documented findings and plan of care.
[2017-02-23 11:28] LABS: Glucose,Whole Blood 214 mg/dL (75-99)
[2017-02-23 15:06] LABS: C-ANCA <1:20 Titer (<1:20); P-ANCA <1:20 Titer (<1:20)
--- NOTE | 2017-02-23 15:21 | XR ---
EXAMINATION TYPE: XR chest 2V DATE OF EXAM: 02/23/2017 COMPARISON: 02/18/2017 INDICATION: Short of breath TECHNIQUE: Frontal and lateral views of the chest are obtained. FINDINGS: The heart size is enlarged. The pulmonary vasculature is normal. No focal consolidation is evident.. IMPRESSION: 1. No pneumothorax is evident. 2. Cardiomegaly.
--- NOTE | 2017-02-23 16:03 | P.PN ---
Subjective 66-year-old female being seen on rounds. Currently resting in bed. The discharge plan is in progress. Patient has had a loop recorder insertion done today on February 23 to rule out the possibility of intermittent atrial fibrillation or paroxysmal atrial fibrillation. This been no significant neurological change. Did note the patient has been evaluated for COMPUTER EQUIPMENT REPAIRER vasculitis. Reviewed the recommendations is felt that is unlikely. Recommendations are to continue treating patient has a primary stroke Patient's initial presentation on February 15 to the emergency room after patient was found by her boyfriend to be nonresponsive. The EMS system was activated. There is no history of drug or alcohol abuse and that was no trauma history. Patient was last seen the day before by her boyfriend. Patient was minimally arousable. Patient was brought into the emergency room. Blood gases were obtained did show hyperventilation oxygen fairly adequate. Patient was admitted to the intensive care unit and monitored closely. Patient did have an MRI of the brain done it did show multifocal cortical areas of subacute ischemia probable acute ischemic left MCA stroke. The MRI of the brain was reviewed by neurology Dr. Adams with the family it does show evidence of multiple strokes involving both hemispheres of the brain including the occipital lobe. Patient was noted to have visual impairment due to the occipital infarct cardiology consultation was requested. Patient did have a DIALLO done it was negative for any evidence of a PFO or atrial thrombus. PT OT participated in the plan of care. Additionally hematology oncology consultation was obtained. Patient was worked up for hypercoagulable state as a cause for the stroke. CTA of the head showed no high-grade stenosis or occlusion. CAT scan of the abdomen pelvis was negative. Carotid Dopplers showed no significant hemodynamic stenosis. A rheumatology consultation was requested for evaluation of COMPUTER EQUIPMENT REPAIRER vasculitis. Patient is also started on Plavix for secondary stroke prevention. Hematology did rule out coagulopathy defect at this time. Ophthalmology consultation was requested for the visual field defect secondary to occipital stroke. Surgical consultation was requested patient was seen and evaluated by surgical service dr clemens there was no evidence of a bowel obstruction patient was tolerating a diet and was no further recommendations by surgical service and there was no surgical intervention warranted at this time Patient did undergo the loop recorder insertion done on February 23 to evaluate for the possibility of intermediate atrial fibrillation or paroxysmal atrial fibrillation Objective - Vital Signs Vital signs: Vital Signs Temp 98.0 F 02/23/17 15:50 Pulse 62 02/23/17 13:32 Resp 18 02/23/17 15:50 BP 141/78 02/23/17 15:50 Pulse Ox 95 02/23/17 15:50 Intake & Output 02/22/17 02/23/17 02/23/17 18:59 06:59 18:59 Intake Total 180 190 Output Total 1800 500 300 Balance -1620 -500 -110 Weight 117.5 kg Intake: IV 80 140 Sodium Chloride 0.9% 1, 80 40 000 ml @ 20 mls/hr IV . Q24H [facility] Rx#:[id number] Intake, IV Titration 50 50 Amount cefTRIAXone 1,000 mg In 50 50 Sodium Chloride 0.9% 50 ml @ 100 mls/hr IVPB Q24HR [facility] Rx#:[id number] Oral 50 0 Output: Urine 1800 500 300 Uretheral (Epstein) 600 200 200 Other: Voiding Method Indwelling Catheter Indwelling Catheter Indwelling Catheter # Voids 1 # Bowel Movements 0 - Exam Physical exam 66-year-old female resting in bed appears in no acute distress. Oriented to self only. Continues to have episodes of confusion. Lungs diminished at the bases otherwise adequate air movement on room air Heart S1-S2 audible and regular Abdomen obese soft nontender Epstein catheter in place no document frequent stooling Extremities no edema noted - Labs CBC & Chem 7: 02/21/17 06:28 02/23/17 05:56 Labs: Abnormal Lab Results - Last 24 Hours (Table) 02/22/17 02/22/17 02/22/17 Range/Units 15:19 15:19 16:33 ESR 36 H (0-20) mm/hr BUN (7-17) mg/dL Glucose (74-99) mg/dL POC Glucose (mg/dL) 208 H (75-99) mg/dL C-Reactive Protein 50.2 H (<10.0) mg/L 02/22/17 02/23/17 02/23/17 Range/Units 20:50 05:56 06:17 ESR (0-20) mm/hr BUN 26 H (7-17) mg/dL Glucose 235 H (74-99) mg/dL POC Glucose (mg/dL) 226 H 211 H (75-99) mg/dL C-Reactive Protein (<10.0) mg/L 02/23/17 Range/Units 11:26 ESR (0-20) mm/hr BUN (7-17) mg/dL Glucose (74-99) mg/dL POC Glucose (mg/dL) 214 H (75-99) mg/dL C-Reactive Protein (<10.0) mg/L Assessment and Plan Plan: Impression Acute hypoxic respiratory failure present on admission Morbid obesity BMI 43 Acute metabolic encephalopathy suspect due to acute ischemic left MCA stroke Present on admission right upper lobe pneumonia suspect aspiration Elevated troponins suspect non-ST elevated UT Cerebrovascular accident involving the left side of the brain Diabetic retinopathy anisocoria Acute ischemic left MCA stroke Present on admission urinary tract infection Cellulitis unspecified Gait disturbance Osteomyelitis right calcaneus Dyslipidemia Type 2 diabetes insulin requiring hemoglobin A1c 6.3 uncontrolled CAT scan abdomen and pelvis suspected ileus small bowel obstruction ruled out Hypertension essential Status post February 23 loop recorder insertion to rule out the possibility of intermittent atrial fibrillation or paroxysmal atrial fibrillation Plan PT OT eval Discharge plan possible subacute rehab Monitor blood pressure address as indicated The above impression and plan of care have been discussed and directed by signing physician. Sweta Reina nurse practitioner acting as scribe for signing physician.
[2017-02-23 16:37] LABS: Glucose,Whole Blood 169 mg/dL (75-99)
--- NOTE | 2017-02-23 17:57 | P.PN ---
Subjective This patient is a 66 year old female seen in the ICU today for evaluation of altered mental status and confusion. The patient was seen on consultation yesterday in the ICU after she was found unresponsive at home. Boyfriend had brought her to the emergency room for further evaluation as he could not arouse her. Patient underwent an initial computed tomography scan of the brain which revealed a lucency in the left parietal lobe. She was subsequently admitted to the intensive care unit where she was seen on neurology consultation yesterday. Patient appeared to have evidence of encephalopathy. She was nonverbal. She was sent for MRI of the brain today. MRI reveals multifocal areas of acute cortical infarct. This suggests possibility of embolic stroke phenomenona. Some history was obtained today by to the patient's daughter at bedside in the ICU. Apparently they have also noted today that she is slightly more responsive but still has difficulty with her vision. We reviewed the results of the MRI today in detail with both of the daughters at bedside. She does have evidence of multiple strokes involving both hemispheres of the brain including the occipital lobe. She may have some visual impairment due to this occipital infarct. The patient continues to demonstrate gaze deviation to the right as she did yesterday. We are recommending a cardiology consultation for possible DIALLO procedure for this patient. DIALLO was completed today and is reported negative for any evidence of atrial thrombus or PFO. We'll await further recommendations from cardiology. She did undergo EEG testing today which was reviewed. EEG reveals moderate slowing. We would also recommend a CT angiogram of the head and neck be done to further evaluate for vascular occlusive disease especially intracranial producing these multiple infarcts. CTA angiogram of the head and neck was completed today. These tests have come back negative for any evidence of high-grade stenosis or occlusion. We have recommended a hematology consultation for a hypercoagulable workup in this patient with cryptogenic stroke. We will obtain a MRA of the vertebrals and carotids for further evaluation. MR angiogram of the head and neck was completed today. Impression is normal [place] with both anterior and posterior circulation. Cervical vascular disease was noted. MRA of the carotids indicated no significant stenosis. Atheromatous changes were noted with tortuosity present in the internal carotid arteries. These findings are not consistent with CAR RESTORER vasculitis or fibromuscular dysplasia. Given the extent of her bilateral strokes the exact etiology still remains unclear. The patient continues to do fairly well in the ICU today. There is ongoing improvement in her overall mental status as well. We are awaiting further evaluation from Dr. Gallardo and a hematology assessment for hypercoagulable state as a cause for stroke in this patient. The patient was seen today by Dr. Tian from hematology. His formal consultation is pending today. His impression is to rule out other causes of embolic phenomenon for this patient. As noted DIALLO is negative for any evidence of atrial thrombus or PFO. He is doubting primary hypercoagulable state in this patient. Other possibilities include antiphospholipid syndrome, low-grade DIC, an occult malignancy. We will await further recommendations pending laboratory test results for this patient. Her case was once again discussed with her daughter is at bedside. There were updated on all of her current test results and neurological findings. Her overall prognosis at this time remains very guarded. We discussed all of her neurological exam findings and test results in detail with both of her daughters at bedside. Her anticardiolipin antibody test also came back negative today. We will start the patient on Plavix for secondary stroke prevention at this time. She should be evaluated for subacute rehab at the time of discharge planning. We have put a formal consult for Dr. Putnam today for possible inpatient rehab. Patient was seen today by Dr. Putnam. We're waiting his final recommendations for possible inpatient rehab. Dr. Mcleod has also consulted ophthalmology. We are a awaiting their consultation. 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 We will await further assessment from ophthalmology. Patient was seen today by Dr. Vincent. His recommendations have been noted. Given the extent of her multiple strokes we would also recommend a consultation with rheumatology for further assessment and evaluation for CAR RESTORER vasculitis. Patient was seen by rheumatology today. Their impression is that the patient does not have CAR RESTORER vasculitis. Will await laboratory test results for other conditions. They are also recommending to rule out underlying malignancy in this patient. We'll defer to Dr. Tian regarding further oncology workup for this patient. We have discussed all of these findings in detail today with the patient's daughter at bedside. All of her questions were answered. She is in full agreement with our current treatment plans. The patient did have a loop recorder placed today by cardiology. She will need frequent interrogation of this device by cardiology. Apparently Dr. Putnam is still considering whether the patient would be a candidate for inpatient rehab. If she is not a candidate then plans need to be made for this patient to undergo [facility]acute [facility]hab at a [facility]. We will continue close neurological follow-up of this patient. Her overall prognosis remains guarded. Objective - Vital Signs Vital signs: Vital Signs Temp 98.0 F 02/23/17 15:50 Pulse 62 02/23/17 13:32 Resp 18 02/23/17 15:50 BP 141/78 02/23/17 15:50 Pulse Ox 95 02/23/17 15:50 Intake & Output 02/22/17 02/23/17 02/23/17 18:59 06:59 18:59 Intake Total 180 290 Output Total 1800 500 600 Balance -1620 -500 -310 Weight 117.5 kg Intake: IV 80 140 Sodium Chloride 0.9% 1, 80 40 000 ml @ 20 mls/hr IV . Q24H [facility] Rx#:[id number] Intake, IV Titration 50 150 Amount Sodium Chloride 0.9% 1, 100 000 ml @ 20 mls/hr IV . Q24H [facility] Rx#:[id number] cefTRIAXone 1,000 mg In 50 50 Sodium Chloride 0.9% 50 ml @ 100 mls/hr IVPB Q24HR [facility] Rx#:[id number] Oral 50 0 Output: Urine 1800 500 600 Uretheral (Epstein) 600 200 200 Other: Voiding Method Indwelling Catheter Indwelling Catheter Indwelling Catheter # Voids 1 # Bowel Movements 0 1 - Exam Physical examination: PHYSICAL EXAMINATION: Patient is resting comfortably in bed. VITAL SIGNS: Blood pressure is [141/78]. Heart rate is [62]. Respiration is [18] . Temperature is [98.0]. HEENT: Head is atraumatic, neck is supple, there were no carotid bruits. CHEST: Lungs are clear to auscultation and percussion. CARDIAC: S1, S2 normal rate and rhythm. There is no murmur. ABDOMEN: Soft and nontender. Bowel sounds are present. EXTREMITIES: There is no pedal edema. Peripheral pulses are present. Neurological examination: Patient is slightly more awake today. Her speech is slightly aphasic. She does continue to demonstrate visual impairment bilaterally. Her memory and intellectual functions are impaired. She has no focal motor deficit on examination. Deep tendon reflexes are symmetric 1+. She is showing more weakness in her left upper extremity as well as facial droop. Plantar responses flexor bilaterally. Patient is showing slight improvement in her mental status today as compared to yesterday. - Labs CBC & Chem 7: 02/21/17 06:28 02/23/17 05:56 Labs: Abnormal Lab Results - Last 24 Hours (Table) 02/22/17 02/23/17 02/23/17 Range/Units 20:50 05:56 06:17 BUN 26 H (7-17) mg/dL Glucose 235 H (74-99) mg/dL POC Glucose (mg/dL) 226 H 211 H (75-99) mg/dL 02/23/17 02/23/17 Range/Units 11:26 16:34 BUN (7-17) mg/dL Glucose (74-99) mg/dL POC Glucose (mg/dL) 214 H 169 H (75-99) mg/dL Assessment and Plan (1) Acute ischemic left MCA stroke Status: Acute Code(s): I63.512 - CEREB INFRC D/T UNSP OCCLS OR STENOS OF LEFT MID CEREB ART (2) Acute encephalopathy Status: Acute Code(s): G93.40 - ENCEPHALOPATHY, UNSPECIFIED (3) UTI (urinary tract infection) Status: Acute Code(s): N39.0 - URINARY TRACT INFECTION, SITE NOT SPECIFIED (4) Cellulitis Status: Acute Code(s): L03.90 - CELLULITIS, UNSPECIFIED (5) Diabetes Status: Acute Code(s): E11.9 - TYPE 2 DIABETES MELLITUS WITHOUT COMPLICATIONS Plan: This patient is a 66-year-old female who was seen today on the selective care floor following transfer out of the intensive care unit recently. Patient was admitted with acute stroke syndrome. She is undergone extensive evaluation for stroke as outlined above. We have consulted Dr. Dai for possible inpatient rehab placement for this patient. She has been started on Plavix for secondary stroke prevention. Hematology has ruled out coagulopathy defect in this patient at this time. We have consulted rheumatology for evaluation of CAR RESTORER vasculitis. Ophthalmology has been also consulted for further evaluation of her visual field defect secondary to her occipital stroke. We reviewed all recommendations today from Dr. Putnam, Dr. Vincent, and Dr. Funez. Recommendations have been noted. Will await possible discharge of this patient to inpatient rehab depending on Dr. Putnam's final recommendations. We will continue close neurological follow-up of this patient. Case was discussed at length with the patient's daughters and at bedside. They have been updated on all of her test results once again today in detail. All of their questions were answered. The patient did have a loop recorder placed today by cardiology. She will need interrogation of this device periodically by cardiology. We would like to rule out possibility of paroxysmal atrial fibrillation as a cause of her stroke syndrome. Patient is still awaiting a decision by Dr. Dai whether she would be a candidate for inpatient rehab. If she is not a candidate then would make plans for transfer of this patient to [facility]. We have once again discussed in detail all of this patient's neurological findings with the patient's daughter at bedside. All of her questions were answered. She is aware of her mother's guarded condition at this time. We will continue to follow her neurological status closely during this admission. Her overall prognosis at this time remains very guarded.
[2017-02-23 20:51] LABS: Glucose,Whole Blood 222 mg/dL (75-99)
[2017-02-24 05:38] LABS: Glucose,Whole Blood 210 mg/dL (75-99)
[2017-02-24 06:45] LABS: Basophils # (A) 0.1 k/uL (0-0.2); Basophils % (A) 1 %; CH 32.4; CHCM 32.7; Eosinophils # (A) 0.2 k/uL (0-0.7); Eosinophils % (A) 5 %; HCT 47.5 % (34.0-46.0); HDW 2.36; HGB 15.2 gm/dL (11.4-16.0); Luc % (Auto) 2; Lymphocytes # (A) 1.2 k/uL (1.0-4.8); Lymphocytes % (A) 23 %; MCH 31.9 pg (25.0-35.0); MCHC 32.1 g/dL (31.0-37.0); MCV 99.4 fL (80.0-100.0); Macrocytosis Slight; Mean Platelet Volume 9.8; Monocytes # (A) 0.4 k/uL (0-1.0); Monocytes % (A) 8 %; Neutrophils # (A) 3.1 k/uL (1.3-7.7); Neutrophils % (A) 61 %; RBC 4.78 m/uL (3.80-5.40); RDW 14.9 % (11.5-15.5); WBC 5.1 k/uL (3.8-10.6); WBC (Perox) 4.83
[2017-02-24 06:54] LABS: ALT 44 U/L (9-52); AST 29 U/L (14-36); Alkaline Phosphatase 75 U/L (38-126); Anion Gap 11 mmol/L; Blood Urea Nitrogen 26 mg/dL (7-17); Calcium 9.1 mg/dL (8.4-10.2); Carbon Dioxide 28 mmol/L (22-30); Chloride 101 mmol/L (98-107); Glucose 237 mg/dL (74-99); Non-African American GFR(MDRD) >60 (>60 ml/min/1.73 sqM); Potassium 3.8 mmol/L (3.5-5.1); Sodium 140 mmol/L (137-145); Total Bilirubin 0.7 mg/dL (0.2-1.3); Total Protein 6.4 g/dL (6.3-8.2)
[2017-02-24] MEDS: INSULIN LISPRO (humaLOG) 300 UNIT/3 ML VIAL SQ SCH (07:06)
[2017-02-24] MEDS ORDERED: FUROSEMIDE 40 MG TAB PO SCH (09:00)
[2017-02-24] MEDS ORDERED: CEFUROXIME 250 MG TAB PO SCH (09:00)
[2017-02-24] MEDS: LISINOPRIL 10 MG TAB PO SCH (09:18)
[2017-02-24] MEDS: FAMOTIDINE 20 MG TAB PO SCH (09:18)
[2017-02-24] MEDS: CLOPIDOGREL 75 MG TAB PO SCH (09:18)
--- NOTE | 2017-02-24 09:20 | PN ---
DATE OF SERVICE: 02/23/2017 Reason for followup is urinary tract infection. INTERVAL HISTORY: The patient is afebrile. She is breathing comfortably. Denies significant chest pain, shortness of breath or cough. No abdominal pain or any diarrhea. On examination, blood pressure is 141/ with a pulse of 62, temperature 98. She is 95% on room air. General description is an elderly female lying in bed in no distress. RESPIRATORY SYSTEM: Unlabored breathing. Clear to auscultation anteriorly. HEART: S1 and S2, regular rate and rhythm. ABDOMEN: Soft, no tenderness. LABS: BUN 26, creatinine 0.73. DIAGNOSTIC IMPRESSION AND PLAN: Patient admitted to the hospital with mental status changes multifactorial with a component of urinary tract infection significant positive UA , no urine cultures were done and blood culture is negative. Overall improvement with Rocephin. Plan to finish therapy with p.o. Ceftin. Continue supportive care. MTDD
[2017-02-24] MEDS: IPRATROPIUM-ALBUTEROL 3 ML NEB INHALATION SCH ×2 (09:39→13:12)
--- NOTE | 2017-02-24 10:34 | P.PN ---
Subjective 02/15/17- This is a 58-year-old female to the ER for altered mental status. Patient was found by boyfriend today being unresponsive, EMS was called to patient's house, patient is unable to give history secondary to critical condition, history is obtained from EMS and the patient's chart. Patient and his boyfriend deny any drug or alcohol abuse. No known trauma history. The patient has been last seen yesterday before she went to bed. She is minimally arousable throughout the night and became unresponsive this morning then eventually brought into the emergency department she however is maintaining her airway and arterial blood gas has been reviewed hyperventilation oxygen is fairly adequate 02/16/17 upon examination today the patient is seen and examined in the intensive care unit. The patient's mentation has slightly improved she does respond to questions however sometimes not appropriately, continues to have intermittent confusion. Does recognize some of her children but not all of them. Patient continues on 2 L of supplemental oxygen via nasal cannula. Patient did require the inserts and of an NG tube overnight she has had approximately [address] Steele has been consult it, for possible bowel obstruction. Chest x-ray of the abdomen is negative patient is going for CT of the abdomen and pelvis this afternoon as well as the MRI of the brain. Of note earlier today the patient did have a bradycardic episode in the 30s and spontaneously came out of it to a normal sinus rhythm. Family at bedside and have been updated on the patient's current condition and the plan of care at length all questions have been answered. Chest x-ray and echo have been reviewed as well as today's labs. 02/17/17 patient is being seen examined and evaluated on rounds and the intensive care unit today. Patient's mentation has remained the same overnight continues with intermittent confusion. Infectious disease was put on consult for UTI. MRI of the brain was completed yesterday and shows multifocal predominantly cortical areas of subacute ischemia. CTA of the head shows no high-grade stenosis or occlusion. CT of the abdomen and pelvis was negative at this time. Patient underwent a Doppler of her carotids this morning which reveals no evidence of a hemodynamically significant stenosis in either common or internal carotid artery, elevated flow velocity, right ECA. Venous Doppler studies are pending. She is scheduled to have a DIALLO today as well. 02/18/17, patient seen and evaluated and examined mental status has improved significantly as she does able to respond to simple verbal stimuli given presence of blindness however limits her ability to respond, her OG tube is being clamped and likely to be discontinued later on today besides having borderline hypertension she is relatively more hemodynamically stable, she remains on supplemental oxygen 02/19/17 Patient seen and evaluated and examined in ICU her mental status is significantly improved she is more awake and alert however if she is blind that kind of limits extent of evaluation but she does respond appropriately moving all 4 extremity also on command MRI findings reviewed patient does have a bihemispheric stroke noted recommendation of cardiology as well as neurology for DIALLO and hematology consultation 02/20/17 patient is seen and examined and evaluated today on rounds. Patient is currently hemodynamically stable. She is resting in bed on room air. She continues to have shortness of breath with exertion or extensive conversation. Denies any cough or congestion. 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 Patient does respond appropriately. Patient has neurology and cardiology as well as hematology on consult we'll appreciate recommendations. 02/21/17 patient is seen and examined and evaluated today on rounds. Patient continues to be hemodynamically stable. All labs have been reviewed. Patient will require an outpatient sleep study upon discharge. She is resting up in bed on room air. Does continue to have shortness of breath with exertion. Denies any cough or congestion. 02/22/17- is being seen examined and evaluated today on rounds. She continues to be lethargic. Has minimal involvement with PT OT due to low endurance. Continues to be short of breath with exertion and/or activity. Currently she is resting up in bed on room air. Occasionally has a dry cough. New consults for hematology as well as Dr. Putnam, were initiated, appreciate recommendations. 02/23/17 patient is being seen examined and evaluated today on rounds. Patient is to go for insertion of a loop recorder today with cardiology. Patient continues to be lethargic and shortness of breath with exertion. Currently resting up in bed on room air. She continues to have intermittent confusion. Patient is still having trouble with articulating her words on and off. 02/24/17- patient is being seen examined and evaluated today on rounds. Patient has slightly more awake today. Continues with shortness of breath with exertion and activity. Currently she continues to breast up in bed on room air. Intermittent confusion noted. Patient is being set up for rehab upon discharge. All labs have been reviewed. She has been switched to oral antibiotics. Objective - Vital Signs Vital signs: Vital Signs Temp 97.7 F 02/24/17 09:13 Pulse 72 02/24/17 09:49 Resp 20 02/24/17 09:13 BP 143/66 02/24/17 09:13 Pulse Ox 94 L 02/24/17 09:13 Intake & Output 02/23/17 02/24/17 02/24/17 18:59 06:59 18:59 Intake Total 390 220 Output Total 1950 300 Balance -1560 -80 Weight 117 kg Intake: IV 140 220 Sodium Chloride 0.9% 1, 40 000 ml @ 20 mls/hr IV . Q24H [facility] Rx#:[id number] Sodium Chloride 0.9% 1, 220 000 ml @ 20 mls/hr IV . Q24H [facility] Rx#:[id number] Intake, IV Titration 150 Amount Sodium Chloride 0.9% 1, 100 000 ml @ 20 mls/hr IV . Q24H [facility] Rx#:[id number] cefTRIAXone 1,000 mg In 50 Sodium Chloride 0.9% 50 ml @ 100 mls/hr IVPB Q24HR [facility] Rx#:[id number] Oral 100 Output: Urine 1950 300 Uretheral (Epstein) 800 Other: Voiding Method Indwelling Catheter Indwelling Catheter # Bowel Movements 1 - Exam GENERAL EXAM: Alert, intermittent confusion appears to have him be improved, comfortable in no apparent distress. HEAD: Normocephalic. EYES: Normal reaction of pupils, equal size. NOSE: Clear with pink turbinates. THROAT: No erythema or exudates. NECK: No masses, no JVD. CHEST: No chest wall deformity. LUNGS: Equal air entry slightly coarse with no crackles, wheeze, rhonchi or dullness. Bases diminished CVS: S1 and S2 normal with no audible mumurs, regular rhythm. ABDOMEN: No hepatosplenomegaly, hypoactive bowel sounds, no guarding or rigidity. EXTREMITIES: No edema noted, pedal pulses palpable. SKIN: No rashes CENTRAL NERVOUS SYSTEM: No focal deficits, tone is normal in all 4 extremities. Speech is a phasic with intermittent confusion, status has improved in terms response.. - Labs CBC & Chem 7: 02/24/17 06:31 02/24/17 06:31 Labs: Abnormal Lab Results - Last 24 Hours (Table) 02/23/17 02/23/17 02/23/17 Range/Units 11:26 16:34 20:50 Hct (34.0-46.0) % Plt Count (150-450) k/uL BUN (7-17) mg/dL Glucose (74-99) mg/dL POC Glucose (mg/dL) 214 H 169 H 222 H (75-99) mg/dL Albumin (3.5-5.0) g/dL 02/24/17 02/24/17 02/24/17 Range/Units 05:36 06:31 06:31 Hct 47.5 H (34.0-46.0) % Plt Count 132 L (150-450) k/uL BUN 26 H (7-17) mg/dL Glucose 237 H (74-99) mg/dL POC Glucose (mg/dL) 210 H (75-99) mg/dL Albumin 3.2 L (3.5-5.0) g/dL Assessment and Plan Plan: Assessment Hypertensive urgency on admission, improved Acute hypoxic respiratory failure on admission, slowly improving with supplemental oxygen and breathing treatments, patient will likely require sleep studies and further evaluation in the outpatient setting in that regard Probable Acute ischemic left MCA stroke, Acute encephalopathy altered mental status Right upper lobe pneumonia probable aspiration Urinary tract infection Possible bowel obstruction versus gastroparesis related to uncontrolled diabetes mellitus Elevated troponins possibly related to non-ST segment elevated VT Plan Patient could be discharged from a pulmonary standpoint in the near future. chest x-ray has been reviewed. Patient will require an outpatient sleep study upon discharge. . Initiate and encourage incentive spirometer. Medications have been reviewed and will be continued as ordered. All labs have been reviewed. MRI and CT results have been reviewed. Carotid Doppler has been reviewed. Echocardiogram reviewed ejection fraction between 55 and 60%. No evidence of pulmonary hypertension. Continue with pulmonary hygiene, coughing and deep breathing exercises, and supportive care. Supplemental oxygen to maintain oxygen saturations of 92% or better. nebulizer treatments. GI and DVT prophylaxis. We will continue to monitor labs/results and adjust treatment as necessary. Further recommendations pending. I performed an examination of the patient and discussed their management with the nurse practitioner. I have reviewed the nurse practitioner's note and agree with the documented findings and plan of care.
[2017-02-24 11:56] LABS: Glucose,Whole Blood 214 mg/dL (75-99)
--- NOTE | 2017-02-24 12:37 | P.DS ---
Providers Date of admission: 02/15/17 14:18 Expected date of discharge: 02/24/17 Attending physician: Moe Mcleod Consults: 02/15/17 14:17 Consult Physician Routine Consulting Provider: Dany Snyder Consult Reason/Comments: icu Do you want consulting provider notified?: Yes Consult Physician Routine Consulting Provider: Jair Hays Consult Reason/Comments: ID Do you want consulting provider notified?: Yes Consult Physician Routine Consulting Provider: Selma Adams Consult Reason/Comments: ams Do you want consulting provider notified?: Yes 02/15/17 16:19 Consult Physician Routine Consulting Provider: Devin Dubose Consult Reason/Comments: Altered LOC Do you want consulting provider notified?: Yes 02/16/17 12:44 Consult Physician Routine Consulting Provider: Jeromy Clemens Consult Reason/Comments: poss. bowel obstruction Do you want consulting provider notified?: Already Contacted 02/17/17 08:00 Consult Physician Routine Consulting Provider: Devin Dubose Consult Reason/Comments: Bihemispheric strokes, r/o cardiac source by DIALLO Do you want consulting provider notified?: Yes 02/18/17 07:00 Consult Physician Urgent Consulting Provider: Alton Gallardo Consult Reason/Comments: Hypercoaguable state with multiple strokes. Do you want consulting provider notified?: Yes 02/21/17 08:24 Consult Physician Urgent Consulting Provider: Lucian Vincent Consult Reason/Comments: blurred vision Do you want consulting provider notified?: Yes 02/21/17 18:30 Consult Physician Urgent Consulting Provider: Portia Funez Consult Reason/Comments: Multiple strokes with possible flumer vasculitis. Do you want consulting provider notified?: Yes Consult Physician Urgent Consulting Provider: Porter Putnam Consult Reason/Comments: Multiple strokes and need for inpt. rehab. Do you want consulting provider notified?: Yes 02/22/17 07:50 Consult Physician Routine Consulting Provider: Breann Patterson Consult Reason/Comments: Stroke, r/o with DIALLO Do you want consulting provider notified?: Already Contacted [facility]: Patient's initial presentation on February 15 to the emergency room after patient was found by her boyfriend to be nonresponsive. The EMS system was activated. There is no history of drug or alcohol abuse and that was no trauma history. Patient was last seen the day before by her boyfriend. Patient was minimally arousable. Patient was brought into the emergency room. Blood gases were obtained did show hyperventilation oxygen fairly adequate. Patient was admitted to the intensive care unit and monitored closely. Patient did have an MRI of the brain done it did show multifocal cortical areas of subacute ischemia probable acute ischemic left MCA stroke. The MRI of the brain was reviewed by neurology Dr. Adams with the family it does show evidence of multiple strokes involving both hemispheres of the brain including the occipital lobe. Patient was noted to have visual impairment due to the occipital infarct cardiology consultation was requested. Patient did have a DIALLO done it was negative for any evidence of a PFO or atrial thrombus. PT OT participated in the plan of care. Additionally hematology oncology consultation was obtained. Patient was worked up for hypercoagulable state as a cause for the stroke. CTA of the head showed no high-grade stenosis or occlusion. CAT scan of the abdomen pelvis was negative. Carotid Dopplers showed no significant hemodynamic stenosis. A rheumatology consultation was requested for evaluation of [employer] vasculitis. Patient is also started on Plavix for secondary stroke prevention. Hematology did rule out coagulopathy defect at this time. Ophthalmology consultation was requested for the visual field defect secondary to occipital stroke. Surgical consultation was requested patient was seen and evaluated by surgical service dr clemens there was no evidence of a bowel obstruction patient was tolerating a diet and was no further recommendations by surgical service and there was no surgical intervention warranted at this time Patient did undergo the loop recorder insertion done on February 23 to evaluate for the possibility of intermediate atrial fibrillation or paroxysmal atrial fibrillation Impression Acute hypoxic respiratory failure present on admission Morbid obesity BMI 43 Acute metabolic encephalopathy suspect due to acute ischemic left MCA stroke Present on admission right upper lobe pneumonia suspect aspiration Elevated troponins suspect non-ST elevated [place] Cerebrovascular accident involving the left side of the brain Diabetic retinopathy anisocoria Acute ischemic left MCA stroke Present on admission urinary tract infection Cellulitis unspecified Gait disturbance Osteomyelitis right calcaneus Dyslipidemia Type 2 diabetes insulin requiring hemoglobin A1c 6.3 uncontrolled CAT scan abdomen and pelvis suspected ileus small bowel obstruction ruled out Hypertension essential Status post February 23 loop recorder insertion to rule out the possibility of intermittent atrial fibrillation or paroxysmal atrial fibrillation The above impression and plan of care have been discussed and directed by signing physician. Sweta Reina nurse practitioner acting as scribe for signing physician. Patient Condition at Discharge: Critical Plan - Discharge Summary New Discharge Prescriptions: New Acetaminophen Tab [Tylenol] 650 mg PO Q6HR PRN tab PRN Reason: Mild Pain Clopidogrel [Plavix] 75 mg PO DAILY tab Famotidine [Pepcid] 20 mg PO DAILY tab Furosemide [Lasix] 40 mg PO DAILY tab Ipratropium-Albuterol Nebulize [Duoneb 0.5 mg-3 mg/3 ml Soln] 3 ml INHALATION RT-TID neb Lisinopril [Zestril] 10 mg PO BID tab Cefuroxime Axetil [Ceftin] 500 mg PO BID #14 tab Changed Insulin Aspart Protam & Aspart [NovoLOG MIX 70-30 Flexpen] 20 unit SQ BID #0 Discontinued Lisinopril 40 mg PO DAILY HYDROcodone/APAP 7.5-325MG [Gardner 7.5-325] 1 tab PO Q6H PRN PRN Reason: Pain Discharge Medication List Acetaminophen Tab [Tylenol] 650 mg PO Q6HR PRN tab 02/24/17 [Rx] Cefuroxime Axetil [Ceftin] 500 mg PO BID #14 tab 02/24/17 [Rx] Clopidogrel [Plavix] 75 mg PO DAILY tab 02/24/17 [Rx] Famotidine [Pepcid] 20 mg PO DAILY tab 02/24/17 [Rx] Furosemide [Lasix] 40 mg PO DAILY tab 02/24/17 [Rx] Insulin Aspart Protam & Aspart [NovoLOG MIX 70-30 Flexpen] 20 unit SQ BID #0 [Rx] Ipratropium-Albuterol Nebulize [Duoneb 0.5 mg-3 mg/3 ml Soln] 3 ml INHALATION RT -TID neb 02/24/17 [Rx] Lisinopril [Zestril] 10 mg PO BID tab 02/24/17 [Rx] Follow up Appointment(s)/Referral(s): Moe Mcleod MD [Primary Care Provider] - 1-2 days Joselito Tian MD [STAFF PHYSICIAN] - 4 Weeks (follow up to complete hypercoaguable work up) Dany Snyder MD [STAFF PHYSICIAN] - 1 Week Discharge Disposition: TRANSFER TO SNF/F
[2017-02-24 13:59] VITALS: BP 169/73; PULSE 90; RESP 18; TEMP 96.9
--- NOTE | 2017-02-24 14:49 | P.PN ---
Subjective This patient is a 66 year old female seen in the ICU today for evaluation of altered mental status and confusion. The patient was seen on consultation yesterday in the ICU after she was found unresponsive at home. Boyfriend had brought her to the emergency room for further evaluation as he could not arouse her. Patient underwent an initial computed tomography scan of the brain which revealed a lucency in the left parietal lobe. She was subsequently admitted to the intensive care unit where she was seen on neurology consultation yesterday. Patient appeared to have evidence of encephalopathy. She was nonverbal. She was sent for MRI of the brain today. MRI reveals multifocal areas of acute cortical infarct. This suggests possibility of embolic stroke phenomenona. Some history was obtained today by to the patient's daughter at bedside in the ICU. Apparently they have also noted today that she is slightly more responsive but still has difficulty with her vision. We reviewed the results of the MRI today in detail with both of the daughters at bedside. She does have evidence of multiple strokes involving both hemispheres of the brain including the occipital lobe. She may have some visual impairment due to this occipital infarct. The patient continues to demonstrate gaze deviation to the right as she did yesterday. We are recommending a cardiology consultation for possible DIALLO procedure for this patient. DIALLO was completed today and is reported negative for any evidence of atrial thrombus or PFO. We'll await further recommendations from cardiology. She did undergo EEG testing today which was reviewed. EEG reveals moderate slowing. We would also recommend a CT angiogram of the head and neck be done to further evaluate for vascular occlusive disease especially intracranial producing these multiple infarcts. CTA angiogram of the head and neck was completed today. These tests have come back negative for any evidence of high-grade stenosis or occlusion. We have recommended a hematology consultation for a hypercoagulable workup in this patient with cryptogenic stroke. We will obtain a MRA of the vertebrals and carotids for further evaluation. MR angiogram of the head and neck was completed today. Impression is normal [place] with both anterior and posterior circulation. Cervical vascular disease was noted. MRA of the carotids indicated no significant stenosis. Atheromatous changes were noted with tortuosity present in the internal carotid arteries. These findings are not consistent with ENVIRONMENTAL HEALTH PHYSICIAN vasculitis or fibromuscular dysplasia. Given the extent of her bilateral strokes the exact etiology still remains unclear. The patient continues to do fairly well in the ICU today. There is ongoing improvement in her overall mental status as well. We are awaiting further evaluation from Dr. Gallardo and a hematology assessment for hypercoagulable state as a cause for stroke in this patient. The patient was seen today by Dr. Tian from hematology. His formal consultation is pending today. His impression is to rule out other causes of embolic phenomenon for this patient. As noted DIALLO is negative for any evidence of atrial thrombus or PFO. He is doubting primary hypercoagulable state in this patient. Other possibilities include antiphospholipid syndrome, low-grade DIC, an occult malignancy. We will await further recommendations pending laboratory test results for this patient. Her case was once again discussed with her daughter is at bedside. There were updated on all of her current test results and neurological findings. Her overall prognosis at this time remains very guarded. We discussed all of her neurological exam findings and test results in detail with both of her daughters at bedside. Her anticardiolipin antibody test also came back negative today. We will start the patient on Plavix for secondary stroke prevention at this time. She should be evaluated for subacute rehab at the time of discharge planning. We have put a formal consult for Dr. Putnam today for possible inpatient rehab. Patient was seen today by Dr. Putnam. We're waiting his final recommendations for possible inpatient rehab. Dr. Mcleod has also consulted ophthalmology. We are a awaiting their consultation. 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 We will await further assessment from ophthalmology. Patient was seen today by Dr. Vincent. His recommendations have been noted. Given the extent of her multiple strokes we would also recommend a consultation with rheumatology for further assessment and evaluation for ENVIRONMENTAL HEALTH PHYSICIAN vasculitis. Patient was seen by rheumatology today. Their impression is that the patient does not have ENVIRONMENTAL HEALTH PHYSICIAN vasculitis. Will await laboratory test results for other conditions. They are also recommending to rule out underlying malignancy in this patient. We'll defer to Dr. Tian regarding further oncology workup for this patient. We have discussed all of these findings in detail today with the patient's daughter at bedside. All of her questions were answered. She is in full agreement with our current treatment plans. The patient did have a loop recorder placed today by cardiology. She will need frequent interrogation of this device by cardiology. Apparently Dr. Putnam is still considering whether the patient would be a candidate for inpatient rehab. If she is not a candidate then plans need to be made for this patient to undergo subacute rehab at a group home. Apparently Dr. Putnam feels she is not a candidate for inpatient rehab. She is being considered for transfer to [facility] for further management. Case was discussed today with Sweta Reina regarding further management of this patient and our current recommendations. She may follow-up in the outpatient neurology clinic in 3-4 weeks. We will continue close neurological follow-up of this patient. Her overall prognosis remains guarded. Objective - Vital Signs Vital signs: Vital Signs Temp 96.9 F L 02/24/17 12:00 Pulse 72 02/24/17 13:22 Resp 18 02/24/17 12:00 BP 169/73 02/24/17 12:00 Pulse Ox 92 L 02/24/17 12:00 Intake & Output 02/23/17 02/24/17 02/24/17 18:59 06:59 18:59 Intake Total 390 220 Output Total 1950 300 Balance -1560 -80 Weight 117 kg Intake: IV 140 220 Sodium Chloride 0.9% 1, 40 000 ml @ 20 mls/hr IV . Q24H [facility] Rx#:[id number] Sodium Chloride 0.9% 1, 220 000 ml @ 20 mls/hr IV . Q24H [facility] Rx#:[id number] Intake, IV Titration 150 Amount Sodium Chloride 0.9% 1, 100 000 ml @ 20 mls/hr IV . Q24H [facility] Rx#:[id number] cefTRIAXone 1,000 mg In 50 Sodium Chloride 0.9% 50 ml @ 100 mls/hr IVPB Q24HR [facility] Rx#:[id number] Oral 100 Output: Urine 1950 300 Uretheral (Epstein) 800 Other: Voiding Method Indwelling Catheter Indwelling Catheter Indwelling Catheter # Bowel Movements 1 1 - Exam Physical examination: PHYSICAL EXAMINATION: Patient is resting comfortably in bed. VITAL SIGNS: Blood pressure is [169/73]. Heart rate is [90]. Respiration is [18] . Temperature is [97.0]. HEENT: Head is atraumatic, neck is supple, there were no carotid bruits. CHEST: Lungs are clear to auscultation and percussion. CARDIAC: S1, S2 normal rate and rhythm. There is no murmur. ABDOMEN: Soft and nontender. Bowel sounds are present. EXTREMITIES: There is no pedal edema. Peripheral pulses are present. Neurological examination: Patient is slightly more awake today. Her speech is slightly aphasic. She does continue to demonstrate visual impairment bilaterally. Her memory and intellectual functions are impaired. She has no focal motor deficit on examination. Deep tendon reflexes are symmetric 1+. She is showing more weakness in her left upper extremity as well as facial droop. Plantar responses flexor bilaterally. Patient is showing slight improvement in her mental status today as compared to yesterday. Patient was able to sit up on the side of bed only with two-person assist today. - Labs CBC & Chem 7: 02/24/17 06:31 02/24/17 06:31 Labs: Abnormal Lab Results - Last 24 Hours (Table) 02/23/17 02/23/17 02/24/17 Range/Units 16:34 20:50 05:36 Hct (34.0-46.0) % Plt Count (150-450) k/uL BUN (7-17) mg/dL Glucose (74-99) mg/dL POC Glucose (mg/dL) 169 H 222 H 210 H (75-99) mg/dL Albumin (3.5-5.0) g/dL 02/24/17 02/24/17 02/24/17 Range/Units 06:31 06:31 11:54 Hct 47.5 H (34.0-46.0) % Plt Count 132 L (150-450) k/uL BUN 26 H (7-17) mg/dL Glucose 237 H (74-99) mg/dL POC Glucose (mg/dL) 214 H (75-99) mg/dL Albumin 3.2 L (3.5-5.0) g/dL Assessment and Plan (1) Acute ischemic left MCA stroke Status: Acute Code(s): I63.512 - CEREB INFRC D/T UNSP OCCLS OR STENOS OF LEFT MID CEREB ART (2) Acute encephalopathy Status: Acute Code(s): G93.40 - ENCEPHALOPATHY, UNSPECIFIED (3) UTI (urinary tract infection) Status: Acute Code(s): N39.0 - URINARY TRACT INFECTION, SITE NOT SPECIFIED (4) Cellulitis Status: Acute Code(s): L03.90 - CELLULITIS, UNSPECIFIED (5) Diabetes Status: Acute Code(s): E11.9 - TYPE 2 DIABETES MELLITUS WITHOUT COMPLICATIONS Plan: This patient is a 66-year-old female who was seen today on the selective care floor following transfer out of the intensive care unit recently. Patient was admitted with acute stroke syndrome. She is undergone extensive evaluation for stroke as outlined above. We have consulted Dr. Dai for possible inpatient rehab placement for this patient. She has been started on Plavix for secondary stroke prevention. Hematology has ruled out coagulopathy defect in this patient at this time. We have consulted rheumatology for evaluation of ENVIRONMENTAL HEALTH PHYSICIAN vasculitis. Ophthalmology has been also consulted for further evaluation of her visual field defect secondary to her occipital stroke. We reviewed all recommendations today from Dr. Putnam, Dr. Vincent, and Dr. Funez. Recommendations have been noted. Will await possible discharge of this patient to inpatient rehab depending on Dr. Putnam's final recommendations. We will continue close neurological follow-up of this patient. Case was discussed at length with the patient's daughters and at bedside. They have been updated on all of her test results once again today in detail. All of their questions were answered. The patient did have a loop recorder placed today by cardiology. She will need interrogation of this device periodically by cardiology. We would like to rule out possibility of paroxysmal atrial fibrillation as a cause of her stroke syndrome. Patient is still awaiting a decision by Dr. Dai whether she would be a candidate for inpatient rehab. If she is not a candidate then would make plans for transfer of this patient to subacute rehab at the group home. We have once again discussed in detail all of this patient's neurological findings with the patient's daughter at bedside. All of her questions were answered. She is aware of her mother's guarded condition at this time. Patient is being transferred to [facility] for further treatment. She may follow-up in the outpatient neurology clinic in 3-4 weeks for post hospital neurological follow-up. We will continue to follow her neurological status closely during this admission. Her overall prognosis at this time remains very guarded.
--- NOTE | 2017-02-24 15:43 | P.PN ---
Subjective The pleasant 58-year-old female who was admitted status post CVA which was unexplained. Patient had multiple lesions. The examination did not show any definite cardiac source of emboli. Subsequently underwent loop recorder inserted flores yesterday by Dr. Dubose to rule out paroxysmal atrial fibrillation as source of emboli. On examination, patient is resting comfortably in bed. Dressing was to assess insertion site. Objective - Vital Signs Vital signs: Vital Signs Temp 96.9 F L 02/24/17 12:00 Pulse 72 02/24/17 13:22 Resp 18 02/24/17 12:00 BP 169/73 02/24/17 12:00 Pulse Ox 92 L 02/24/17 12:00 Intake & Output 02/23/17 02/24/17 02/24/17 18:59 06:59 18:59 Intake Total 390 220 Output Total 1950 300 500 Balance -1560 -80 -500 Weight 117 kg Intake: IV 140 220 Sodium Chloride 0.9% 1, 40 000 ml @ 20 mls/hr IV . Q24H [facility] Rx#:[id number] Sodium Chloride 0.9% 1, 220 000 ml @ 20 mls/hr IV . Q24H [facility] Rx#:[id number] Intake, IV Titration 150 Amount Sodium Chloride 0.9% 1, 100 000 ml @ 20 mls/hr IV . Q24H [facility] Rx#:[id number] cefTRIAXone 1,000 mg In 50 Sodium Chloride 0.9% 50 ml @ 100 mls/hr IVPB Q24HR [facility] Rx#:[id number] Oral 100 Output: Urine 1950 300 500 Uretheral (Epstein) 800 Other: Voiding Method Indwelling Catheter Indwelling Catheter Indwelling Catheter # Bowel Movements 1 1 - Exam PHYSICAL EXAMINATION: HEENT: Head is atraumatic, normocephalic. Pupils equal, round. Neck is supple. There is no elevated jugular venous pressure. HEART EXAMINATION: Heart sounds regular, S1 and S2 normal. No murmur or gallop heard. CHEST EXAMINATION: Lungs are clear to auscultation and precussion. No chest wall tenderness is noted on palpation or with deep breathing. ABDOMEN: Soft, nontender. Bowel sounds are heard. No organomegaly noted. EXTREMITIES: 2+ peripheral pulses with no evidence of peripheral edema and no calf tenderness noted. NEUROLOGIC patient is awake, in no acute distress . - Labs CBC & Chem 7: 02/24/17 06:31 02/24/17 06:31 Labs: Abnormal Lab Results - Last 24 Hours (Table) 02/23/17 02/23/17 02/24/17 Range/Units 16:34 20:50 05:36 Hct (34.0-46.0) % Plt Count (150-450) k/uL BUN (7-17) mg/dL Glucose (74-99) mg/dL POC Glucose (mg/dL) 169 H 222 H 210 H (75-99) mg/dL Albumin (3.5-5.0) g/dL 02/24/17 02/24/17 02/24/17 Range/Units 06:31 06:31 11:54 Hct 47.5 H (34.0-46.0) % Plt Count 132 L (150-450) k/uL BUN 26 H (7-17) mg/dL Glucose 237 H (74-99) mg/dL POC Glucose (mg/dL) 214 H (75-99) mg/dL Albumin 3.2 L (3.5-5.0) g/dL Assessment and Plan Plan: Assessment and plan #1 acute encephalopathy #2 acute ischemic left MCA stroke #3 CVA #4 diabetes From cardiology's perspective, we'll follow-up with the patient as an outpatient to in about 5-7 days for suture removal and initial interrogation of the loop recorder. She will follow-up in the office as an outpatient. [facility] [facility] note has been reviewed, I agree with a documented findings and plan of care. Patient was seen and examined.
[2017-02-24 16:31] LABS: HCV Qualitative Result Not detected (Not detected)
--- NOTE | 2017-02-24 18:28 | PN ---
DATE OF SERVICE: 02/24/2017 REASON FOR FOLLOW UP: Urinary tract infection. INTERVAL HISTORY: The patient is afebrile, is currently breathing comfortably. Denies significant chest pain or shortness of breath. No cough. No diarrhea. On examination, blood pressure 159/73 with a pulse of 90, temperature 96.9, she is 92% on room air. GENERAL DESCRIPTION: Elderly female lying in bed in no distress. RESPIRATORY: Unlabored breathing. Clear to auscultation anteriorly. HEART: S1/S2, regular rate and rhythm. ABDOMEN: Soft. LAB: Hemoglobin is 15.8, white count 5.1. BUN 26, creatinine 0.80. Blood culture negative. DIAGNOSTIC IMPRESSION: Patient with urinary tract infection likely rocephin sensitive , tolerating p.o. Ceftin. She will continue it for another 4-5 days to finish the course of therapy. Continue supportive care. MTDD
== END 2017-02-24 16:01 | DRG 40 ==
LOC: EC 10:45 → 6ICU 14:18 → 6SEL 02-19 16:36
PROVIDERS: ADMIT Family Medicine; ATTEND Family Medicine
PROC: 0T9B70Z Drainage of Bladder with Drainage Device, Via Natural or Artificial Opening (ICD-10-PCS; 2017-02-15)
PROC: 0D9670Z Drainage of Stomach with Drainage Device, Via Natural or Artificial Opening (ICD-10-PCS; 2017-02-16)
PROC: B246ZZ4 Ultrasonography of Right and Left Heart, Transesophageal (ICD-10-PCS; 2017-02-17)
PROC: 0JH602Z Insertion of Monitoring Device into Chest Subcutaneous Tissue and Fascia, Open Approach (ICD-10-PCS; principal; 2017-02-23 11:00)
DX: I63.512 Cerebral infarction due to unspecified occlusion or stenosis of left middle cerebral artery (principal); J96.01 Acute respiratory failure with hypoxia; I21.4 Non-ST elevation (NSTEMI) myocardial infarction; J69.0 Pneumonitis due to inhalation of food and vomit; G93.41 Metabolic encephalopathy; I50.33 Acute on chronic diastolic (congestive) heart failure; K56.7 Ileus, unspecified; N39.0 Urinary tract infection, site not specified; I16.1 Hypertensive emergency; G81.94 Hemiplegia, unspecified affecting left nondominant side; E78.5 Hyperlipidemia, unspecified; R47.01 Aphasia; E66.01 Morbid (severe) obesity due to excess calories; R26.9 Unspecified abnormalities of gait and mobility; I48.0 Paroxysmal atrial fibrillation; E11.65 Type 2 diabetes mellitus with hyperglycemia; I11.0 Hypertensive heart disease with heart failure; I16.0 Hypertensive urgency; E11.319 Type 2 diabetes mellitus with unspecified diabetic retinopathy without macular edema; H57.02 Anisocoria; E03.9 Hypothyroidism, unspecified; M54.5 Low back pain; M19.91 Primary osteoarthritis, unspecified site; R11.10 Vomiting, unspecified; H54.0 Blindness, both eyes; R29.810 Facial weakness; F17.210 Nicotine dependence, cigarettes, uncomplicated; R29.725 NIHSS score 25; Z83.3 Family history of diabetes mellitus; Z79.899 Other long term (current) drug therapy; Z79.4 Long term (current) use of insulin; Z86.718 Personal history of other venous thrombosis and embolism; Z79.891 Long term (current) use of opiate analgesic; Z98.1 Arthrodesis status; Z87.81 Personal history of (healed) traumatic fracture; Z90.49 Acquired absence of other specified parts of digestive tract; Z98.51 Tubal ligation status; Z80.49 Family history of malignant neoplasm of other genital organs; Z56.0 Unemployment, unspecified
CPT/HCPCS: 33282; 36415; 36600; 70450; 70496; 70498; 70544; 70549; 70551; 71010; 71020; 71275; 74020; 74176; 80048; 80053; 80061; 80306; 80320; 81001; 82140; 82550; 82553; 82803; 82805; 83036; 83520; 83615; 83735; 83880; 84100; 84132; 84439; 84443; 84481; 84484; 85025; 85027; 85384; 85598; 85610; 85613; 85652; 85730; 85732; 86038; 86140; 86146; 86147; 86255; 87040; 87340; 87522; 93005; 93306; 93312; 93320; 93325; 93880; 93970; 94640; 95819; 96361; 96365; 96375; 99291

== ENCOUNTER 2017-03-02 12:11 | Inpatient (IN) | payer MEDICARE ==
[2017-03-02] MEDS ORDERED: SODIUM CHLORIDE 0.9% 1,000 ML IV ONE ×2 (12:25→14:59)
--- NOTE | 2017-03-02 12:40 | ED ---
General Adult HPI - General Stated complaint: Altered Time Seen by Provider: 03/02/17 12:11 Source: RN notes reviewed - History of Present Illness Initial comments: This is a 66-year-old female presents emergency department from a [facility]. According to the [facility]dc staff the patient has become more lethargic and somewhat altered. According to the staff the patient is being treated for urinary tract infection currently. And according to the staff the physician on staff there wanted the patient evaluated for possible PEG tube because the patient wasn't eating enough at the fdc. There's been no history of any fevers or chills. There is been no history of any difficulty breathing or shortness of breath. The patient denies any chest pain. Patient denies headache patient denies numbness weakness. Patient denies any abdominal pain patient denies nausea vomiting or diarrhea. Patient denies any dysuria hematuria urinary frequency. - Related Data Home Medications Medication Instructions Recorded Confirmed Bisacodyl [Dulcolax] 10 mg RECTAL DAILY PRN 03/02/17 03/02/17 Ensure Clear 1 can PO BID-W/MEALS 03/02/17 03/02/17 INSULIN LISPRO (humaLOG) [HumaLOG] See Protocol SQ ACHS 03/02/17 03/02/17 Insulin Glargine [Lantus] 20 unit SQ HS 03/02/17 03/02/17 Magnesium Hydroxide [Milk of 2,400 mg PO DAILY PRN 03/02/17 03/02/17 Magnesia] Na Phos,M-B/Na Phos,Di-Ba [Fleet 133 ml RECTAL DAILY PRN 03/02/17 03/02/17 Adult] Nystatin 100,000 Unit/ml Susp 5 ml PO QID 03/02/17 03/02/17 [Mycostatin Oral Susp] Previous Rx's Medication Instructions Recorded Acetaminophen Tab [Tylenol] 650 mg PO Q6HR PRN tab 02/24/17 Cefuroxime Axetil [Ceftin] 500 mg PO BID #14 tab 02/24/17 Clopidogrel [Plavix] 75 mg PO DAILY tab 02/24/17 Famotidine [Pepcid] 20 mg PO DAILY tab 02/24/17 Furosemide [Lasix] 40 mg PO DAILY tab 02/24/17 Ipratropium-Albuterol Nebulize 3 ml INHALATION RT-TID neb 02/24/17 [Duoneb 0.5 mg-3 mg/3 ml Soln] Lisinopril [Zestril] 10 mg PO BID tab 02/24/17 Allergies Allergy/AdvReac Type Severity Reaction Status Date / Time No Known Allergies Allergy Verified 03/02/17 12:17 Review of Systems ROS Statement: Those systems with pertinent positive or pertinent negative responses have been documented in the HPI. ROS Other: All systems not noted in ROS Statement are negative. Past Medical History Past Medical History: Diabetes Mellitus, Deep Vein Thrombosis (DVT), Eye Disorder, Hyperlipidemia, Hypertension Additional Past Medical History / Comment(s): NT, EDEMA PAPO FEET. DIABETIC RETINOPATHY, osteomyelitis of the right calcaneus, Melendez grade 3 diabetic ulcer to the right heel, bilateral buttocks decubitus ulcers. History of Any Multi-Drug Resistant Organisms: None Reported Past Surgical History: Appendectomy, Back Surgery, Section, Cholecystectomy, Hernia Repair, Tubal Ligation Additional Past Surgical History / Comment(s): RT EYE SURG for diabetic retinopathy, lumbar fusion, PAPO FOOT SPUR SURG. Picc insertion. Past Anesthesia/Blood Transfusion Reactions: No Reported Reaction Past Psychological History: No Psychological Hx Reported Smoking Status: Current every day smoker Past Alcohol Use History: None Reported Additional Past Alcohol Use History / Comment(s): Patient was a smoker of half a pack of cigarettes per day for 27 years and quit when she was 43 years of age. She denies any medical marijuana, marijuana, street drug or alcohol use. 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 She does have a dog in the home and lives with her boyfriend. She denies any recent travel. Past Drug Use History: None Reported - Past Family History Mother Family Medical History: Cancer, Diabetes Mellitus Additional Family Medical History / Comment(s): mother is . Father History Unknown: Yes Daughter(s) Family Medical History: Diabetes Mellitus General Exam - General Exam Comments Initial Comments: GENERAL: Patient is well-developed and well-nourished. Patient is nontoxic and well- hydrated and is in no acute distress. ENT: Neck is soft and supple. No significant lymphadenopathy is noted. Oropharynx is clear. Moist mucous membranes. Neck has full range of motion without eliciting any pain. EYES: The sclera were anicteric and conjunctiva were pink and moist. Extraocular movements were intact and pupils were equal round and reactive to light. Eyelids were unremarkable. PULMONARY: Poor effort with scattered crackles in the bases. CARDIOVASCULAR: There is a regular rate and rhythm without any murmurs gallops or rubs. ABDOMEN: Soft and nontender with normal bowel sounds. No palpable organomegaly was noted. There is no palpable pulsatile mass. SKIN: Skin is clear with no lesions or rashes and otherwise unremarkable. NEUROLOGIC: Patient is alert and oriented 1 Cranial nerves II through XII are grossly intact. Motor and sensory are also intact. Normal speech, volume and content. Symmetrical smile. MUSCULOSKELETAL: Normal extremities with adequate strength and full range of motion. No lower extremity swelling or edema. No calf tenderness. LYMPHATICS: No significant lymphadenopathy is noted PSYCHIATRIC: Normal psychiatric evaluation. Course Vital Signs 03/02/17 03/02/17 03/02/17 12:26 12:52 13:50 Temperature 99.6 F 99.6 F Pulse Rate 54 L 54 L 60 Respiratory 18 18 18 Rate Blood Pressure 159/65 159/65 112/65 O2 Sat by Pulse 97 96 Oximetry Medical Decision Making - Medical Decision Making EKG shows sinus bradycardia 53 bpm DE interval is 142 QRS is 88 QT interval 470 QTC is 441. Patient's EKG shows no ST segment elevation or depression. Patient has urinary tract infection that has failed outpatient antibiotics. I spoke with Dr. Moe Mcleod he agreed to admit I wrote admitting orders - Lab Data Result diagrams: 03/02/17 13:33 03/02/17 13:33 Lab Results 03/02/17 03/02/17 03/02/17 Range/Units 13:33 13:33 13:33 WBC 7.8 (3.8-10.6) k/uL RBC 5.02 (3.80-5.40) m/uL Hgb 15.8 (11.4-16.0) gm/dL Hct 49.4 H (34.0-46.0) % MCV 98.4 (80.0-100.0) fL MCH 31.5 (25.0-35.0) pg MCHC 32.0 (31.0-37.0) g/dL RDW 14.7 (11.5-15.5) % Plt Count 125 L (150-450) k/uL Neutrophils % 72 % Lymphocytes % 18 % Monocytes % 5 % Eosinophils % 2 % Basophils % 1 % Neutrophils # 5.6 (1.3-7.7) k/uL Lymphocytes # 1.4 (1.0-4.8) k/uL Monocytes # 0.4 (0-1.0) k/uL Eosinophils # 0.2 (0-0.7) k/uL Basophils # 0.1 (0-0.2) k/uL PT (9.0-12.0) sec INR (<1.2) APTT (22.0-30.0) sec Sodium 139 (137-145) mmol/L Potassium 4.3 (3.5-5.1) mmol/L Chloride 102 (98-107) mmol/L Carbon Dioxide 24 (22-30) mmol/L Anion Gap 13 mmol/L BUN 34 H (7-17) mg/dL Creatinine 0.88 (0.52-1.04) mg/dL Est GFR (MDRD) Af Amer >60 (>60 ml/min/1.73 sqM) Est GFR (MDRD) Non-Af >60 (>60 ml/min/1.73 sqM) Glucose 247 H (74-99) mg/dL Calcium 9.2 (8.4-10.2) mg/dL Total Bilirubin 1.1 (0.2-1.3) mg/dL AST 27 (14-36) U/L ALT 21 (9-52) U/L Alkaline Phosphatase 86 (38-126) U/L Total Creatine Kinase 28 L (30-135) U/L CK-MB (CK-2) 0.3 (0.0-2.4) ng/mL CK-MB (CK-2) Rel Index 1.1 Troponin I <0.012 (0.000-0.034) ng/mL Total Protein 7.1 (6.3-8.2) g/dL Albumin 3.5 (3.5-5.0) g/dL Urine Color Urine Appearance (Clear) Urine pH (5.0-8.0) Ur Specific [place] (1.001-1.035) Urine Protein (Negative) Urine Glucose (UA) (Negative) Urine Ketones (Negative) Urine Blood (Negative) Urine Nitrite (Negative) Urine Bilirubin (Negative) Urine Urobilinogen (<2.0) mg/dL Ur Leukocyte Esterase (Negative) Urine RBC (0-5) /hpf Urine WBC (0-5) /hpf Urine WBC Clumps (None) /hpf Urine Bacteria (None) /hpf Urine Mucus (None) /hpf Urine Opiates Screen (NotDetected) Ur Oxycodone Screen (NotDetected) Urine Methadone Screen (NotDetected) Ur Propoxyphene Screen (NotDetected) Ur Barbiturates Screen (NotDetected) U Tricyclic Antidepress (NotDetected) Ur Phencyclidine Scrn (NotDetected) Ur Amphetamines Screen (NotDetected) U Methamphetamines Scrn (NotDetected) U Benzodiazepines Scrn (NotDetected) Urine Cocaine Screen (NotDetected) U Marijuana (THC) Screen (NotDetected) 03/02/17 03/02/17 Range/Units 13:44 13:55 WBC (3.8-10.6) k/uL RBC (3.80-5.40) m/uL Hgb (11.4-16.0) gm/dL Hct (34.0-46.0) % MCV (80.0-100.0) fL MCH (25.0-35.0) pg MCHC (31.0-37.0) g/dL RDW (11.5-15.5) % Plt Count (150-450) k/uL Neutrophils % % Lymphocytes % % Monocytes % % Eosinophils % % Basophils % % Neutrophils # (1.3-7.7) k/uL Lymphocytes # (1.0-4.8) k/uL Monocytes # (0-1.0) k/uL Eosinophils # (0-0.7) k/uL Basophils # (0-0.2) k/uL PT 11.7 (9.0-12.0) sec INR 1.2 H (<1.2) APTT 22.4 (22.0-30.0) sec Sodium (137-145) mmol/L Potassium (3.5-5.1) mmol/L Chloride (98-107) mmol/L Carbon Dioxide (22-30) mmol/L Anion Gap mmol/L BUN (7-17) mg/dL Creatinine (0.52-1.04) mg/dL Est GFR (MDRD) Af Amer (>60 ml/min/1.73 sqM) Est GFR (MDRD) Non-Af (>60 ml/min/1.73 sqM) Glucose (74-99) mg/dL Calcium (8.4-10.2) mg/dL Total Bilirubin (0.2-1.3) mg/dL AST (14-36) U/L ALT (9-52) U/L Alkaline Phosphatase (38-126) U/L Total Creatine Kinase (30-135) U/L CK-MB (CK-2) (0.0-2.4) ng/mL CK-MB (CK-2) Rel Index Troponin I (0.000-0.034) ng/mL Total Protein (6.3-8.2) g/dL Albumin (3.5-5.0) g/dL Urine Color Yellow Urine Appearance Turbid H (Clear) Urine pH 5.5 (5.0-8.0) Ur Specific [place] 1.013 (1.001-1.035) Urine Protein 1+ H (Negative) Urine Glucose (UA) Negative (Negative) Urine Ketones 1+ H (Negative) Urine Blood Small H (Negative) Urine Nitrite Positive H (Negative) Urine Bilirubin Negative (Negative) Urine Urobilinogen <2.0 (<2.0) mg/dL Ur Leukocyte Esterase Large H (Negative) Urine RBC 3 (0-5) /hpf Urine WBC >182 H (0-5) /hpf Urine WBC Clumps Many H (None) /hpf Urine Bacteria Many H (None) /hpf Urine Mucus Rare H (None) /hpf Urine Opiates Screen Not Detected (NotDetected) Ur Oxycodone Screen Not Detected (NotDetected) Urine Methadone Screen Not Detected (NotDetected) Ur Propoxyphene Screen Not Detected (NotDetected) Ur Barbiturates Screen Not Detected (NotDetected) U Tricyclic Antidepress Not Detected (NotDetected) Ur Phencyclidine Scrn Not Detected (NotDetected) Ur Amphetamines Screen Not Detected (NotDetected) U Methamphetamines Scrn Not Detected (NotDetected) U Benzodiazepines Scrn Not Detected (NotDetected) Urine Cocaine Screen Not Detected (NotDetected) U Marijuana (THC) Screen Not Detected (NotDetected) Disposition Clinical Impression: Recurrent UTI (urinary tract infection), Altered mental status Disposition: ADMITTED IP TO THIS HOSP Referrals: Moe Mcleod MD [Primary Care Provider] - 1-2 days Time of Disposition: 14:58
[2017-03-02 13:45] LABS: Basophils # (A) 0.1 k/uL (0-0.2); Basophils % (A) 1 %; CH 32.7; CHCM 33.4; Eosinophils # (A) 0.2 k/uL (0-0.7); Eosinophils % (A) 2 %; HCT 49.4 % (34.0-46.0); HDW 2.45; HGB 15.8 gm/dL (11.4-16.0); Luc % (Auto) 3; Lymphocytes # (A) 1.4 k/uL (1.0-4.8); Lymphocytes % (A) 18 %; MCH 31.5 pg (25.0-35.0); MCV 98.4 fL (80.0-100.0); Mean Platelet Volume 10.5; Monocytes # (A) 0.4 k/uL (0-1.0); Monocytes % (A) 5 %; Neutrophils # (A) 5.6 k/uL (1.3-7.7); Neutrophils % (A) 72 %; RBC 5.02 m/uL (3.80-5.40); RDW 14.7 % (11.5-15.5); WBC 7.8 k/uL (3.8-10.6); WBC (Perox) 7.51
[2017-03-02 13:57] LABS: ALT 21 U/L (9-52); AST 27 U/L (14-36); Alkaline Phosphatase 86 U/L (38-126); Anion Gap 13 mmol/L; Blood Urea Nitrogen 34 mg/dL (7-17); Calcium 9.2 mg/dL (8.4-10.2); Carbon Dioxide 24 mmol/L (22-30); Chloride 102 mmol/L (98-107); Glucose 247 mg/dL (74-99); Non-African American GFR(MDRD) >60 (>60 ml/min/1.73 sqM); Sodium 139 mmol/L (137-145); Total Bilirubin 1.1 mg/dL (0.2-1.3); Total Protein 7.1 g/dL (6.3-8.2)
[2017-03-02 14:03] LABS: Potassium 4.3 mmol/L (3.5-5.1)
[2017-03-02 14:10] LABS: Creatine Kinase 28 U/L (30-135)
[2017-03-02 14:14] LABS: Appearance,Urine Turbid (Clear); Bacteria,Urine Many /hpf; Bilirubin,Urine Negative (Negative); Glucose,Urine (UA) Negative (Negative); Ketones,Urine 1+ (Negative); Leukocyte Esterase,Urine Large (Negative); Mucus,Urine Rare /hpf; Nitrite,Urine Positive (Negative); PH, Urine 5.5 (5.0-8.0); Particle Count 32097; Protein,Urine 1+ (Negative); RBC,Urine 3 /hpf (0-5); Specific Gravity,Urine 1.013 (1.001-1.035); UA Billing (MACRO vs. MICRO) MICRO; Urobilinogen,Urine <2.0 mg/dL (<2.0); WBC,Urine >182 /hpf (0-5)
[2017-03-02 14:23] LABS: Creatine Kinase MB 0.3 ng/mL (0.0-2.4); Troponin I <0.012 ng/mL (0.000-0.034)
[2017-03-02 14:23] LABS: INR 1.2 (<1.2); Partial Thromboplastin Time 22.4 sec (22.0-30.0); Prothrombin Time 11.7 sec (9.0-12.0)
--- NOTE | 2017-03-02 14:24 | XR ---
EXAMINATION TYPE: XR chest 2V DATE OF EXAM: 03/02/2017 COMPARISON: 02/23/2017 TECHNIQUE: PA and lateral views submitted. HISTORY: Altered mental status FINDINGS: Diffuse interstitial pattern seen. Limited inspiration with cardiomegaly but no pneumothorax. Arthrop athy of the shoulders. Subsegmental linear changes bilaterally most typical of atelectasis. Atherosclerotic change aorta. Degenerative change of the spine. There is a radiopaque density along t he left heart border which appears to be subcutaneous on the lateral view. Correlate clinically. IMPRESSION: 1. Central interstitial pattern can be seen with interstitial pneumonitis or venous congestion. 2. Subsegmental areas of consolidation may represent atelectasis or early infiltrate.
[2017-03-02] MEDS ORDERED: LEVOFLOXACIN 750MG-D5W PMX 750 MG in DEXTROSE/WATER 1 150ML.BAG IVPB STA (14:34)
[2017-03-02 15:48] LABS: Glucose,Whole Blood 228 mg/dL (75-99)
[2017-03-02] MEDS ORDERED: MAGNESIUM HYDROXIDE 2,400 MG/10 ML CUP PO PRN (17:37)
[2017-03-02] MEDS ORDERED: BISACODYL 10 MG SUPP RECTAL PRN (17:37)
[2017-03-02] MEDS ORDERED: ACETAMINOPHEN TAB 325 MG TAB PO PRN (17:37)
[2017-03-02 17:41] LABS: Glucose,Whole Blood 213 mg/dL (75-99)
[2017-03-02] MEDS ORDERED: RX INFO: IV CONTRAST WAS GIVEN 1 EACH MISC MISCELLANE PRN (17:45)
[2017-03-02] MEDS: NYSTATIN 100,000 UNIT/ML SUSP 500,000 UNIT/5 ML CUP PO SCH ×2 (18:07→21:16)
[2017-03-02] MEDS: INSULIN LISPRO (humaLOG) 300 UNIT/3 ML VIAL SQ SCH ×2 (18:08→21:17)
[2017-03-02 18:55] LABS: Hemoglobin A1C 6.8 % (4.2-6.1)
[2017-03-02] MEDS: IPRATROPIUM-ALBUTEROL 3 ML NEB INHALATION SCH (19:41)
[2017-03-02 20:53] LABS: Glucose,Whole Blood 221 mg/dL (75-99)
[2017-03-02] MEDS: LISINOPRIL 10 MG TAB PO SCH (21:16)
--- NOTE | 2017-03-02 22:53 | CT ---
EXAMINATION TYPE: CT brain wo/w con DATE OF EXAM: 03/02/2017 COMPARISON: MRI sequences of February 16, 2017 HISTORY: Altered mental status changes. CT DLP: 1999.6 mGycm. Automated exposure control for dose reduction was used. CONTRAST: CT scan of the head is performed without and with IV Contrast, patient injected with 100 mL of Omnipa que 300. FINDINGS: There is no evidence of hemorrhage. There is low attenuation in the posterior right parietal lobe high over the convexity, corresponding to an area of restricted diffusion on the February 16, 2017 MRI. There is subtle low attenuation in the r ight occipital pole, also corresponding to the findings on the prior MRI. No other definite correspon ding low attenuation. Following delivery of intravenous contrast these 2 areas show subtle vascular e nhancement overlying th involved gyri, as well as subtle gyriform parenchymal enhancement too. An incidental finding is also present, a 1.5 cm focal calcification arising from the right sphenoid w ing, with subcentimeter overlying mild contrast-enhancement, located at the medial floor of the right middle cranial fossa. This focal calcification and overlying mild contrast enhancement is consistent with incidental sphenoid meningioma. There is no midline shift of structures. The basal cisterns and ventricles and subarachnoid spaces ar e unremarkable. IMPRESSION: EVOLUTION OF THE FINDINGS SEEN ON THE MRI FEBRUARY 16, 2017.
[2017-03-03] MEDS: INSULIN GLARGINE 100 UNIT/ML 10 ML VIAL SQ SCH ×2 (00:17→21:02)
[2017-03-03 07:26] LABS: Glucose,Whole Blood 214 mg/dL (75-99)
[2017-03-03] MEDS ORDERED: NON-FORMULARY DRUG (Ensure Clear 1 CAN) PO SCH (07:30)
[2017-03-03] MEDS: IPRATROPIUM-ALBUTEROL 3 ML NEB INHALATION SCH ×3 (07:33→19:30)
[2017-03-03] MEDS: INSULIN LISPRO (humaLOG) 300 UNIT/3 ML VIAL SQ SCH ×4 (08:02→21:02)
[2017-03-03] MEDS: CLOPIDOGREL 75 MG TAB PO SCH (08:02)
[2017-03-03] MEDS: FUROSEMIDE 40 MG TAB PO SCH (08:02)
[2017-03-03] MEDS: FAMOTIDINE 20 MG TAB PO SCH (08:02)
[2017-03-03] MEDS: LISINOPRIL 10 MG TAB PO SCH ×2 (08:03→21:03)
[2017-03-03] MEDS: NYSTATIN 100,000 UNIT/ML SUSP 500,000 UNIT/5 ML CUP PO SCH ×4 (08:03→21:03)
[2017-03-03 12:00] VITALS: BMI 41.3
[2017-03-03 13:16] LABS: Glucose,Whole Blood 258 mg/dL (75-99)
[2017-03-03] MEDS ORDERED: LEVOFLOXACIN 750MG-D5W PMX 750 MG in DEXTROSE/WATER 1 150ML.BAG IVPB SCH (14:00)
[2017-03-03] MEDS ORDERED: LEVOFLOXACIN 750 MG TAB PO SCH (15:00)
[2017-03-03 16:19] LABS: Appearance,Urine Cloudy (Clear); Bacteria,Urine Many /hpf; Bilirubin,Urine Negative (Negative); Glucose,Urine (UA) Negative (Negative); Ketones,Urine Negative (Negative); Leukocyte Esterase,Urine Moderate (Negative); Nitrite,Urine Positive (Negative); PH, Urine 5.5 (5.0-8.0); Particle Count 25396; Protein,Urine Negative (Negative); RBC,Urine 1 /hpf (0-5); UA Billing (MACRO vs. MICRO) MICRO; Urobilinogen,Urine <2.0 mg/dL (<2.0); WBC,Urine 26 /hpf (0-5)
[2017-03-03 17:35] LABS: Glucose,Whole Blood 293 mg/dL (75-99)
[2017-03-03 20:41] LABS: Glucose,Whole Blood 243 mg/dL (75-99)
[2017-03-03] MEDS: MEROPENEM 1 GM in SODIUM CHLORIDE 0.9% 100 ML IVPB SCH (23:44)
[2017-03-04] MEDS: IPRATROPIUM-ALBUTEROL 3 ML NEB INHALATION SCH ×3 (07:22→20:58)
[2017-03-04 07:51] LABS: Glucose,Whole Blood 230 mg/dL (75-99)
--- NOTE | 2017-03-04 09:25 | CONS ---
DATE OF SERVICE: 03/03/2017 REASON FOR CONSULTATION: 1. Recurrent urinary tract infection. 2. Stage II sacral pressure ulcer. HISTORY OF PRESENT ILLNESS: The patient is a 66-year-old female who was recently admitted to this facility being treated for unresponsiveness. Patient did have insertion of the loop recording by Dr. Dubose 02/23/2017 for unexplained syncope. Due to that admission the patient also has urinary tract infection. She was treated with Rocephin and did have improvement and subsequently discharged to the [facility] on a short course of oral Ceftin. Patient has been sent back to the [facility] ER for evaluation of the patient being lethargic and less responsive and overall remains to be very poor. ID consultation for possible PEG tube placement. There is no clear history of any fever or chills. On evaluation by the ER physician, the patient s T-max was 99.6. The patient had a normal white count. UA was done which was significantly positive with large leukocyte esterase and 1 to 2 WBC. Patient has been started on Levaquin and ID was consulted for further recommendations regarding antibiotics. In the meantime, since the patient has been discharged from this facility has also developed a wound in the sacral area currently being treated with Aquacel silver. The patient is not a very good historian to give me any specific cause or questions answered but denies any significant chest pain or shortness of breath, cough, no abdominal pain or any pain in the sacral area. REVIEW OF SYSTEMS: Could not be reliably obtained with the positive points as mentioned in HPI. PAST MEDICAL HISTORY: Significant for hypertension, hyperlipidemia, diabetes mellitus, DVT, and previous history of diabetic ulcer to the right heel and buttocks area. UTI. PAST SURGICAL HISTORY: Appendectomy, back surgery, , cholecystectomy, hernia repair and tubal ligation. SOCIAL HISTORY: Currently every day smoker. Admitted to marijuana use. No drinking. FAMILY HISTORY: Mother with history of diabetes mellitus and cancer. ALLERGIES: No known drug allergies. Medications include the patient is currently on Nystatin swish and swallow. She is on Milk of Magnesia, Zestril, levofloxacin, Humalog, Lantus, Plavix, Dulcolax , and Tylenol. On examination: Blood pressure 152/81 with pulse 55. Temperature 97.4. She is 97% on 3-L nasal cannula. General description is an elderly female lying in bed in no distress. No tachypnea or accessory muscle of respiration use. HEENT examination shows no pallor or scleral icterus. Oral mucous membrane is dry. NECK: Trachea is central. No thyromegaly. LUNGS: Unlabored breathing. Clear to auscultation anteriorly. HEART: S1, S2 regular rate and rhythm. ABDOMEN: Soft, no tenderness. No guarding or rigidity. EXTREMITIES: No edema feet. SKIN: On sacral area did have stage II pressure ulcer and no evidence of any cellulitis. NEUROLOGICAL: The patient remained to be lethargic but easily arousable. Did respond to name. LABS: Hemoglobin 15.1, white count 7.8. BUN 34, creatinine 0.8. Electrolytes have been normal. Liver enzymes are normal. UA has been positive. DIAGNOSTIC IMPRESSION AND PLAN: 1. Patient was admitted to the hospital with generalized weakness, lethargy and less responsiveness in a patient with significantly positive urinalysis. However, the patient is not a good historian to tell me exactly if she has any urinary symptoms or not. Will have to make sure there is no evidence of any ( ) bacteria or colonization. 2. Patient with stage II sacral ulcer with no evidence of any cellulitis. PLAN: 1. Will go ahead and check straight cath UA and culture to make sure there is no evidence of colonization/contamination. 2. Keep the patient on Levaquin as the patient recently treated with Rocephin and Ceftin with concern for possible ( ) resistant pathogen. 3. Aquacel silver dressing to the sacral wound and keep the area off the pressure. 4. Will follow up on the clinical condition and culture to further adjust medication if needed. Thank you for this consultation. I will follow this patient along with you. TAVIA
[2017-03-04] MEDS: INSULIN LISPRO (humaLOG) 300 UNIT/3 ML VIAL SQ SCH ×4 (09:32→21:01)
[2017-03-04] MEDS: MEROPENEM 1 GM in SODIUM CHLORIDE 0.9% 100 ML IVPB SCH ×3 (09:32→23:10)
[2017-03-04] MEDS: FUROSEMIDE 40 MG TAB PO SCH (09:34)
[2017-03-04] MEDS: FAMOTIDINE 20 MG TAB PO SCH (09:34)
[2017-03-04] MEDS: CLOPIDOGREL 75 MG TAB PO SCH (09:34)
[2017-03-04] MEDS: NYSTATIN 100,000 UNIT/ML SUSP 500,000 UNIT/5 ML CUP PO SCH ×4 (09:34→20:56)
[2017-03-04] MEDS: LISINOPRIL 10 MG TAB PO SCH ×2 (09:34→20:56)
[2017-03-04 12:43] LABS: Glucose,Whole Blood 216 mg/dL (75-99)
--- NOTE | 2017-03-04 13:01 | PN ---
SUBJECTIVE: This 66-year-old white female who was admitted with metabolic encephalopathy secondary to UTI, ( ) infectious disease. She was started on Levaquin and taken off Augmentin. Her vision is unchanged. Her strength is 3/5 in four extremities. Discussed care with the family. They wanted to send her to new rehab place including possibly [facility] on [facility]. She was admitted with mid-200s. Possibly will put the patient on IV Merrem unless Infectious Disease can come up with a better choice. Her urine is improved since yesterday with less white cells from 182 down to 26 and large to moderate leukocyte esterase. Levaquin is probably working. Will continue with the current dose. Continue with PT/OT and chcf placement over at [facility] on Monday. MTDD
--- NOTE | 2017-03-04 13:11 | HP ---
SUBJECTIVE: This is a 66-year-old white female admitted from the alf due to increased lethargy. She was found to have severe UTI with metabolic encephalopathy, at which time she was switched from antibiotics to IV Levaquin. She is having no fever, no chills. No history of difficulty breathing or shortness of breath. Denies any chest pain. Denies headache or associated numbness. Denies any abdominal pain. Denies nausea, vomiting or diarrhea. Denies dysuria, hematuria or urinary frequency. HOME MEDICATIONS: 1. Dulcolax. 2. Ensure. 3. Humalog. 4. Lantus. 5. Milk of Magnesia. 6. Mycostatin suspension. 7. Tylenol. 8. Ceftin. 9. Plavix. 10. Pepcid. 11. Lasix. 12. DuoNeb. 13. Zestril. ALLERGIES: NO KNOWN DRUG ALLERGIES. REVIEW OF SYSTEMS: Fourteen-point review of systems was negative except for as mentioned in HPI. SOCIAL HISTORY: Smoked for 27 years. Denies any alcohol, drugs or marijuana. FAMILY HISTORY: Mother with cancer, diabetes. Father negative. Daughter with diabetes mellitus. PHYSICAL EXAM: Well nourished, well developed, obese. Non-toxic. Well hydrated. No acute distress. Answers questions appropriately. VISION: She can see 5 feet in front of her and recognize colors. She is well nourished, well developed. MUSCULOSKELETAL: Strength is 4/5 in 4 extremities. OPHTHALMOLOGIC: Pupils equal, round and reactive. PULMONARY: Mild crackles at the base. HEART: Regular rate and rhythm. No murmurs, rubs, gallops. SKIN: No rash, excoriation or bruising except for Aquacel Silver being placed on decubitus ulcers on the buttocks. LYMPHATICS: No lymphadenopathy. PSYCHIATRIC: Fair mood and affect. VITALS: Temperature 99.6, pulse rate 74 to 60, respiratory rate 16 to 18, blood pressure 112 to 159 over 65. Oxygen 96% on room air. Hemoglobin is 16.8, white count 7.8. Sodium 139, potassium 4.3. GFR is greater than 60. Urine shows positive nitrites, white count over 182. ASSESSMENT: 1. Metabolic encephalopathy, acute. 2. ( ) chronic CVA. 3. Urinary tract infection with possible sepsis. Continue with IV Levaquin. Take her off Ceftin. Continue current treatments for stroke prophylaxis. Rotate her every 2 hours. Keep pressure off the wounds. Aquacel Silver to the wounds. Continue home medications. TAVIA
[2017-03-04] MEDS ORDERED: LEVOFLOXACIN 750 MG TAB PO SCH (16:00)
[2017-03-04 17:26] LABS: Glucose,Whole Blood 219 mg/dL (75-99)
[2017-03-04 20:53] LABS: Glucose,Whole Blood 216 mg/dL (75-99)
[2017-03-04] MEDS: INSULIN GLARGINE 100 UNIT/ML 10 ML VIAL SQ SCH (21:03)
[2017-03-05 02:16] LABS: Glucose,Whole Blood 173 mg/dL (75-99)
[2017-03-05 07:41] LABS: Glucose,Whole Blood 190 mg/dL (75-99)
[2017-03-05] MEDS: IPRATROPIUM-ALBUTEROL 3 ML NEB INHALATION SCH ×3 (07:52→19:26)
[2017-03-05] MEDS: MEROPENEM 1 GM in SODIUM CHLORIDE 0.9% 100 ML IVPB SCH ×3 (08:26→23:21)
[2017-03-05] MEDS: INSULIN LISPRO (humaLOG) 300 UNIT/3 ML VIAL SQ SCH ×4 (08:26→21:19)
[2017-03-05] MEDS: CLOPIDOGREL 75 MG TAB PO SCH (09:31)
[2017-03-05] MEDS: FUROSEMIDE 40 MG TAB PO SCH (09:31)
[2017-03-05] MEDS: LISINOPRIL 10 MG TAB PO SCH ×2 (09:31→21:21)
[2017-03-05] MEDS: FAMOTIDINE 20 MG TAB PO SCH (09:31)
[2017-03-05] MEDS: NYSTATIN 100,000 UNIT/ML SUSP 500,000 UNIT/5 ML CUP PO SCH ×4 (09:31→21:21)
[2017-03-05 12:05] LABS: Glucose,Whole Blood 248 mg/dL (75-99)
--- NOTE | 2017-03-05 13:13 | PN ---
SUBJECTIVE: A 66-year-old white female with UTI with metabolic encephalopathy secondary to UTI, is on meropenem 1 gram every 8 hours. Clinically she is improving. Her vision she states is improving. Her strength is improving. Pulse is 80s. Blood pressure 150/72. I increased her hypertension medications to Lisinopril 20 b.i.d. today. CARDIOVASCULAR: S1, S2. ABDOMEN: Soft. Vision is unchanged. Nutrition is 50% of her meals. ASSESSMENT: 1. Urinary tract infection with metabolic encephalopathy. 2. Diabetes mellitus. 3. Recent stroke. 4. Stage II pressure ulcer of the sacrum. 5. ( ) cellulitis. PLAN: IV Merrem. Aquacel silver to sacral wound to keep pressure off. Clinically, wheelchair every 2 hours. MTDD
[2017-03-05 17:23] LABS: Glucose,Whole Blood 224 mg/dL (75-99)
[2017-03-05 20:59] LABS: Glucose,Whole Blood 273 mg/dL (75-99)
[2017-03-05] MEDS: INSULIN GLARGINE 100 UNIT/ML 10 ML VIAL SQ SCH (21:17)
[2017-03-06] MEDS: IPRATROPIUM-ALBUTEROL 3 ML NEB INHALATION SCH ×3 (07:07→20:15)
[2017-03-06 07:46] LABS: Glucose,Whole Blood 224 mg/dL (75-99)
[2017-03-06] MEDS: INSULIN LISPRO (humaLOG) 300 UNIT/3 ML VIAL SQ SCH ×4 (08:09→21:35)
[2017-03-06] MEDS: MEROPENEM 1 GM in SODIUM CHLORIDE 0.9% 100 ML IVPB SCH ×3 (08:09→23:21)
[2017-03-06] MEDS: CLOPIDOGREL 75 MG TAB PO SCH (08:10)
[2017-03-06] MEDS: FAMOTIDINE 20 MG TAB PO SCH (08:10)
[2017-03-06] MEDS: NYSTATIN 100,000 UNIT/ML SUSP 500,000 UNIT/5 ML CUP PO SCH ×4 (08:10→21:36)
[2017-03-06] MEDS: LISINOPRIL 10 MG TAB PO SCH ×2 (08:10→21:36)
[2017-03-06] MEDS: FUROSEMIDE 40 MG TAB PO SCH (08:10)
[2017-03-06 12:49] LABS: Glucose,Whole Blood 199 mg/dL (75-99)
--- NOTE | 2017-03-06 15:25 | P.PN ---
Subjective 66-year-old female being seen. The discharge plan is in progress patients being evaluated for possible transfer to [facility] for rehab. 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 Did speak with infectious disease Dr. guajardo who is recommending a 7 day course of Invanz IV 1 g daily for treatment of a UTI. Hospital course 66-year-old female who presented from [facility] to the emergency room via the EMS system after family noted the patient to be more lethargic. According to the nursing staff the patient was being treated for urinary tract infection. The nursing staff indicated that the patient was not eating. Patient was not experiencing abdominal pain there was no nausea vomiting.. Patient was found have a UTI started on IV antibiotics per recommendations of infectious disease. It's noted that this patient was just discharged on February 24 [facility] for rehab. 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 That prior admission additionally the patient was treated for urinary tract infection as well. Patient does have a history of type 2 diabetes insulin requiring hemoglobin A1c last admission was 6.3. Additionally the last admission patient was followed by cardiology service. Patient does have a history of having on February 23 a loop recorder inserted to rule out the possibility of intermittent paroxysmal atrial fibrillation episodes. Patient returned from the [facility] facility with the above-mentioned changes. This admission the urine was be checked and was positive for UTI E. coli was resistant to most antibiotics Invanz was felt to be appropriate per infectious diseases recommendations Objective - Vital Signs Vital signs: Vital Signs Temp 97.7 F 03/06/17 07:00 Pulse 74 03/06/17 13:48 Resp 18 03/06/17 07:00 BP 161/78 03/06/17 07:00 Pulse Ox 95 03/06/17 07:09 Intake & Output 03/05/17 03/06/17 03/06/17 18:59 06:59 18:59 Weight 109.316 kg Other: Voiding Method Incontinent Incontinent Incontinent # Voids 1 4 - Exam Physical exam 66-year-old female resting in bed appears stated age pleasant oriented to person place Lungs anterior essentially clear diminished bases no shortness of breath noted no cough noted Heart S1-S2 audible and regular Abdomen obese soft nontender incontinent of urine no document stool no reports of nausea vomiting Extremities right side weakness trace pedal edema - Labs CBC & Chem 7: 03/02/17 13:33 03/02/17 13:33 Labs: Abnormal Lab Results - Last 24 Hours (Table) 03/05/17 03/05/17 03/06/17 Range/Units 17:19 20:41 07:43 POC Glucose (mg/dL) 224 H 273 H 224 H (75-99) mg/dL 03/06/17 Range/Units 12:47 POC Glucose (mg/dL) 199 H (75-99) mg/dL Microbiology - Last 24 Hours (Table) 03/03/17 16:08 Urine Culture - Final Urine,Catheterized Escherichia coli Assessment and Plan Plan: Impression Present on admission acute metabolic encephalopathy suspect due to UTI chronic debility due to a recent CVA Morbid obesity BMI 41 A recent cerebrovascular accident involving the left side of the brain resulting in right side weakness Dyslipidemia Type 2 diabetes insulin requiring hemoglobin A1c 6.3 Status post February 23 loop recorder insertion to rule out possibility of episodes intermittent paroxysmal atrial fibrillation History of a recent CVA resulting in visual field deficit secondary to occipital stroke 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 guajardo infectious disease Invanz 1 g daily for 7 day course PT OT eval continue Resume home meds as appropriate Monitor blood sugars address as indicated DVT and GI prophylaxis The above impression and plan of care have been discussed and directed by signing physician. Sweta Reina nurse practitioner acting as scribe for signing physician.
--- NOTE | 2017-03-06 17:26 | PN ---
DATE OF SERVICE: 03/05/2017 REASON FOR FOLLOWUP: 1. ESBL E coli urinary tract infection. 2. Stage II sacral pressure ulcer. INTERVAL HISTORY: The patient is afebrile. She is more awake and alert today, breathing comfortably. Denies significant chest pain, shortness of breath or cough. No abdominal pain or any pain in the gluteal wound. On examination, blood pressure is 125/74 with a pulse of 65, temperature 98.6. She is 98% on 2 L nasal cannula. General description is an elderly female lying in bed in no distress. RESPIRATORY SYSTEM: Unlabored breathing. Clear to auscultation anteriorly. HEART: S1, S2. Regular rate and rhythm. ABDOMEN: Soft. No tenderness. LABS: Repeat urine which is from straight cath on 03/03 is positive for ESBL. DIAGNOSTIC IMPRESSION AND PLAN: 1. Patient with ESBL E coli urinary tract infection admitted to hospital with mental status changes. She is currently responding to meropenem. She will need a PICC line for outpatient IV antibiotics for at least 10 more days. Continue supportive care. 2. Patient with stage II pressure ulcer, for which the patient is continued on Aquacel Silver dressing. Keep the area off pressure. MTDD
[2017-03-06 17:52] LABS: Glucose,Whole Blood 164 mg/dL (75-99)
--- NOTE | 2017-03-06 18:22 | PN ---
DATE OF SERVICE: 03/06/2017 REASON FOR FOLLOW UP: 1. ESBL E. coli urinary tract infection. 2. Decubitus sacral pressure ulcer. INTERVAL HISTORY: The patient is afebrile. She seemed to be slightly lethargic today though breathing comfortably. Denies significant chest pain. No shortness of breath, no cough. No nausea, vomiting or any diarrhea. On examination, blood pressure 161/78, pulse of 76, temperature 97.7, she is 96 % on 2 liters nasal cannula. GENERAL DESCRIPTION: Elderly female lying in bed in no distress. RESPIRATORY: Unlabored breathing. Clear to auscultation anteriorly. HEART: S1/S2 regular. ABDOMEN: Soft, no tenderness. LABS: No new labs have been obtained today. DIAGNOSTIC IMPRESSION: 1. The patient has ESBL Escherichia coli urinary tract infection, currently on meropenem. The patient will get a PICC line for outpatient IV Invanz 1 gm daily for another 10 days. 2. Stage 2 sacral pressure ulcer. Aquacel silver dressing to the wound and keep area off the pressure. MTDD
[2017-03-06 21:10] LABS: Glucose,Whole Blood 195 mg/dL (75-99)
[2017-03-06] MEDS: INSULIN GLARGINE 100 UNIT/ML 10 ML VIAL SQ SCH (21:35)
[2017-03-07 07:39] LABS: Glucose,Whole Blood 167 mg/dL (75-99)
[2017-03-07] MEDS: IPRATROPIUM-ALBUTEROL 3 ML NEB INHALATION SCH ×3 (08:16→21:24)
[2017-03-07] MEDS: INSULIN LISPRO (humaLOG) 300 UNIT/3 ML VIAL SQ SCH ×4 (08:41→21:15)
[2017-03-07] MEDS: NYSTATIN 100,000 UNIT/ML SUSP 500,000 UNIT/5 ML CUP PO SCH ×4 (08:41→21:18)
[2017-03-07] MEDS: FAMOTIDINE 20 MG TAB PO SCH (08:41)
[2017-03-07] MEDS: CLOPIDOGREL 75 MG TAB PO SCH (08:41)
[2017-03-07] MEDS: FUROSEMIDE 40 MG TAB PO SCH (08:41)
[2017-03-07] MEDS: LISINOPRIL 10 MG TAB PO SCH ×2 (08:41→21:18)
[2017-03-07] MEDS: MEROPENEM 1 GM in SODIUM CHLORIDE 0.9% 100 ML IVPB SCH ×2 (09:35→17:41)
[2017-03-07 09:41] LABS: Basophils # (A) 0.1 k/uL (0-0.2); Basophils % (A) 1 %; CH 32.6; Eosinophils # (A) 0.2 k/uL (0-0.7); Eosinophils % (A) 3 %; HCT 48.7 % (34.0-46.0); HDW 2.47; HGB 15.2 gm/dL (11.4-16.0); Luc # (Auto) 0.12; Luc % (Auto) 2; Lymphocytes # (A) 1.7 k/uL (1.0-4.8); Lymphocytes % (A) 30 %; MCHC 31.2 g/dL (31.0-37.0); MCV 99.2 fL (80.0-100.0); Mean Platelet Volume 10.1; Monocytes # (A) 0.4 k/uL (0-1.0); Monocytes % (A) 7 %; Neutrophils # (A) 3.2 k/uL (1.3-7.7); Neutrophils % (A) 57 %; RBC 4.91 m/uL (3.80-5.40); RDW 14.6 % (11.5-15.5); WBC 5.6 k/uL (3.8-10.6); WBC (Perox) 5.21
[2017-03-07 09:51] LABS: ALT 22 U/L (9-52); AST 15 U/L (14-36); Alkaline Phosphatase 83 U/L (38-126); Anion Gap 7 mmol/L; Blood Urea Nitrogen 16 mg/dL (7-17); Calcium 8.8 mg/dL (8.4-10.2); Carbon Dioxide 35 mmol/L (22-30); Chloride 98 mmol/L (98-107); Glucose 178 mg/dL (74-99); Non-African American GFR(MDRD) >60 (>60 ml/min/1.73 sqM); Potassium 3.8 mmol/L (3.5-5.1); Sodium 140 mmol/L (137-145); Total Bilirubin 0.9 mg/dL (0.2-1.3); Total Protein 6.5 g/dL (6.3-8.2)
--- NOTE | 2017-03-07 11:55 | P.DS ---
Providers Date of admission: 03/02/17 14:59 Expected date of discharge: 03/08/17 Attending physician: Meo Mcleod Consults: 03/02/17 17:32 Consult Physician Urgent Consulting Provider: Selma Adams Consult Reason/Comments: altered mental status Do you want consulting provider notified?: Yes 03/03/17 09:43 Consult Physician Urgent Consulting Provider: Jair Hays Consult Reason/Comments: infectious disease mtg Do you want consulting provider notified?: Yes Primary care physician: [place] Hospital Course: Hospital course 66-year-old female who presented from [facility] to the emergency room via the EMS system after family noted the patient to be more lethargic. According to the nursing staff the patient was being treated for urinary tract infection. The nursing staff indicated that the patient was not eating. Patient was not experiencing abdominal pain there was no nausea vomiting.. Patient was found have a UTI started on IV antibiotics per recommendations of infectious disease. It's noted that this patient was just discharged on February 24 [facility] for rehab. 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 That prior admission additionally the patient was treated for urinary tract infection as well. Patient does have a history of type 2 diabetes insulin requiring hemoglobin A1c last admission was 6.3. Additionally the last admission patient was followed by cardiology service. Patient does have a history of having on February 23 a loop recorder inserted to rule out the possibility of intermittent paroxysmal atrial fibrillation episodes. Patient returned from the [facility] facility with the above-mentioned changes. This admission the urine was be checked and was positive for UTI E. coli was resistant to most antibiotics Invanz was felt to be appropriate per infectious diseases recommendations. Discussed with Dr. Hays who recommends an additional 5 days of Invanz IV 1 g daily outpatient at the [facility]. Dr. Hays does not recommend PICC line at this time and to administer antibiotics through peripheral IV. Impression Discharge Diagnosis Present on admission acute metabolic encephalopathy suspect due to UTI chronic debility due to a recent CVA Morbid obesity BMI 41 A recent cerebrovascular accident involving the left side of the brain resulting in right side weakness Dyslipidemia Type 2 diabetes insulin requiring hemoglobin A1c 6.3 Status post February 23 loop recorder insertion to rule out possibility of episodes intermittent paroxysmal atrial fibrillation History of a recent CVA resulting in visual field deficit secondary to occipital stroke Present on admission UTI-failed outpatient treatment-resistant to Ceftin which is what patient was taking upon admission from [facility] The above impression and plan of care have been discussed and directed by signing physician. Martita Bowser, nurse practitioner, acting as scribe for signing physician. Patient Condition at Discharge: Stable Plan - Discharge Summary New Discharge Prescriptions: New Ertapenem [INVanz] 1 gm IVPB Q24H #4 bag Continue Acetaminophen Tab [Tylenol] 650 mg PO Q6HR PRN tab PRN Reason: Mild Pain Clopidogrel [Plavix] 75 mg PO DAILY tab Famotidine [Pepcid] 20 mg PO DAILY tab Furosemide [Lasix] 40 mg PO DAILY tab Ipratropium-Albuterol Nebulize [Duoneb 0.5 mg-3 mg/3 ml Soln] 3 ml INHALATION RT-TID neb Lisinopril [Zestril] 10 mg PO BID tab Na Phos,M-B/Na Phos,Di-Ba [Fleet Adult] 133 ml RECTAL DAILY PRN PRN Reason: Constipation Bisacodyl [Dulcolax] 10 mg RECTAL DAILY PRN PRN Reason: Constipation Nystatin 100,000 Unit/ml Susp [Mycostatin Oral Susp] 5 ml PO QID INSULIN LISPRO (humaLOG) [humaLOG (formulary)] See Protocol SQ ACHS Ensure Clear 1 can PO BID-W/MEALS Insulin Glargine [Lantus] 20 unit SQ HS Magnesium Hydroxide [Milk of Magnesia] 2,400 mg PO DAILY PRN PRN Reason: Constipation Discontinued Cefuroxime Axetil [Ceftin] 500 mg PO BID #14 tab Discharge Medication List Acetaminophen Tab [Tylenol] 650 mg PO Q6HR PRN tab 02/24/17 [Rx] Clopidogrel [Plavix] 75 mg PO DAILY tab 02/24/17 [Rx] Famotidine [Pepcid] 20 mg PO DAILY tab 02/24/17 [Rx] Furosemide [Lasix] 40 mg PO DAILY tab 02/24/17 [Rx] Ipratropium-Albuterol Nebulize [Duoneb 0.5 mg-3 mg/3 ml Soln] 3 ml INHALATION RT -TID neb 02/24/17 [Rx] Lisinopril [Zestril] 10 mg PO BID tab 02/24/17 [Rx] Bisacodyl [Dulcolax] 10 mg RECTAL DAILY PRN 03/02/17 [History] Ensure Clear 1 can PO BID-W/MEALS 03/02/17 [History] INSULIN LISPRO (humaLOG) [humaLOG (formulary)] See Protocol SQ ACHS 03/02/17 [ History] Insulin Glargine [Lantus] 20 unit SQ HS 03/02/17 [History] Magnesium Hydroxide [Milk of Magnesia] 2,400 mg PO DAILY PRN 03/02/17 [History] Na Phos,M-B/Na Phos,Di-Ba [Fleet Adult] 133 ml RECTAL DAILY PRN 03/02/17 [ History] Nystatin 100,000 Unit/ml Susp [Mycostatin Oral Susp] 5 ml PO QID 03/02/17 [ History] Ertapenem [INVanz] 1 gm IVPB Q24H #4 bag 03/08/17 [Rx] Follow up Appointment(s)/Referral(s): Moe Mcleod MD [Primary Care Provider] [facility] [place] [place] - 1 Week Devin Dubose MD [STAFF PHYSICIAN] - 1 Week Jair Hays MD [STAFF PHYSICIAN] - 1 Week Patient Instructions/Handouts: Urinary Tract Infection in Women (DC), Pressure Ulcer (DC) Activity/Diet/Wound Care/Special Instructions: Optifoam dressing to stage 2 on coccyx. Change as needed, otherwise once per week. Turn every 2 hours, head of bed elevated. Loop recorder present. Consistent carb, puree, dysphagia diet with aspiration precautions. Discharge Disposition: TRANSFER TO SNF/ECF
[2017-03-07 12:00] LABS: Glucose,Whole Blood 148 mg/dL (75-99)
--- NOTE | 2017-03-07 14:33 | P.PN ---
Progress Note - Text Patients discharge currently on hold. Social work and case management working on discharge. Still awaiting authorization from insurance company. Patient was denied to go to [facility] on the [place]. Patient's guardian notified and patient to possibly go back to [facility] or [facility]. Once approved patient may be discharged to [facility].
[2017-03-07 16:58] LABS: Glucose,Whole Blood 154 mg/dL (75-99)
[2017-03-07 20:53] LABS: Glucose,Whole Blood 159 mg/dL (75-99)
[2017-03-07] MEDS: INSULIN GLARGINE 100 UNIT/ML 10 ML VIAL SQ SCH (21:15)
--- NOTE | 2017-03-07 21:34 | PN ---
DATE OF SERVICE: 03/07/2017 REASON FOR FOLLOWUP: 1. ESBL E coli urinary tract infection. 2. Stage II sacral wound. INTERVAL HISTORY: The patient is afebrile. She is breathing comfortably. Denies significant chest pain or shortness of breath or cough. No abdominal pain. Temperature 98.3. She is 95% on 4 L nasal cannula. General description is an elderly female lying in bed in no distress. RESPIRATORY SYSTEM: Unlabored breathing. Clear to auscultation anteriorly. HEART: S1, S2. Regular rate and rhythm. ABDOMEN: Soft. No tenderness. LABS: BUN of 16 with a creatinine of 0.74. Hemoglobin 15.2, white count 5.6. DIAGNOSTIC IMPRESSION AND PLAN: 1. Patient with ESBL E coli urinary tract infection, for which the patient has received about 5 days of meropenem. She will need another 5 days of Invanz. 2. Sacral wound. Aquacel Silver dressing and keep the area off pressure. MTDD
[2017-03-08] MEDS: MEROPENEM 1 GM in SODIUM CHLORIDE 0.9% 100 ML IVPB SCH ×2 (00:21→08:06)
[2017-03-08] MEDS: IPRATROPIUM-ALBUTEROL 3 ML NEB INHALATION SCH ×2 (06:57→12:07)
[2017-03-08 07:39] LABS: Glucose,Whole Blood 150 mg/dL (75-99)
[2017-03-08 07:41] VITALS: BP 152/73; RESP 22; TEMP 98.1
[2017-03-08] MEDS: FAMOTIDINE 20 MG TAB PO SCH (08:06)
[2017-03-08] MEDS: LISINOPRIL 10 MG TAB PO SCH (08:06)
[2017-03-08] MEDS: NYSTATIN 100,000 UNIT/ML SUSP 500,000 UNIT/5 ML CUP PO SCH ×2 (08:06→13:08)
[2017-03-08] MEDS: CLOPIDOGREL 75 MG TAB PO SCH (08:06)
[2017-03-08] MEDS: INSULIN LISPRO (humaLOG) 300 UNIT/3 ML VIAL SQ SCH ×2 (08:06→13:07)
[2017-03-08] MEDS: FUROSEMIDE 40 MG TAB PO SCH (08:06)
--- NOTE | 2017-03-08 09:33 | P.PN ---
Subjective Principal diagnosis: This is a 66-year-old female seen and evaluated this morning on rounds with Dr. Mcleod. Patient was admitted on 03/02/2017 due to a urinary tract infection. Patient appears in no acute distress and denies any complaints or concerns. Patient states she is feeling better since receiving treatment for her urinary tract infection and is feeling back to her normal self. Patient denies any shortness of breath, chest pain, nausea, or vomiting. Patient states she has not been out of bed today. Physical therapy has been consulted. Spoke with nursing staff and discussed importance of returning patient every 2 hours and when necessary due to patient's stage II wounds on her coccyx. Patient remains stable for discharge at this time. Discharge still currently pending due to insurance authorization. Social work and his management continue to work on discharge planning and have spoke with patient's guardian. Objective - Vital Signs Vital signs: Vital Signs Temp 98.1 F 03/08/17 07:00 Pulse 72 03/08/17 07:08 Resp 22 03/08/17 07:00 BP 152/73 03/08/17 07:00 Pulse Ox 97 03/08/17 07:00 Intake & Output 03/07/17 03/08/17 03/08/17 18:59 06:59 18:59 Intake Total 100 Balance 100 Intake: Intake, IV Titration 100 Amount Meropenem 1 gm In Sodium 100 Chloride 0.9% 100 ml @ 200 mls/hr IVPB Q8HR [facility] Rx#:[id number] Other: Voiding Method Incontinent Incontinent Incontinent # Voids 2 3 # Bowel Movements 0 - Exam GENERAL: Alert and oriented. Appears in no acute distress. Pleasant. RESPIRATORY: Lungs clear bilaterally. No use of accessory muscles. Patient maintaining oxygen saturation greater than 92%. CARDIOVASCULAR: S1 and S2 noted. No murmurs auscultated. No JVD noted. EXTREMITIES: Trace edema noted. Palpable pedal pulses +2. ABDOMEN: Obese. Abdomen soft and round. Normal active bowel sounds auscultated 4 quadrants. No pain or tenderness noted upon palpation. - Labs CBC & Chem 7: 03/07/17 08:54 03/07/17 08:54 Labs: Abnormal Lab Results - Last 24 Hours (Table) 03/07/17 03/07/17 03/07/17 Range/Units 08:54 08:54 11:47 Hct 48.7 H (34.0-46.0) % Plt Count 120 L (150-450) k/uL Carbon Dioxide 35 H (22-30) mmol/L Glucose 178 H (74-99) mg/dL POC Glucose (mg/dL) 148 H (75-99) mg/dL Albumin 3.1 L (3.5-5.0) g/dL 03/07/17 03/07/17 03/08/17 Range/Units 16:56 20:52 07:32 Hct (34.0-46.0) % Plt Count (150-450) k/uL Carbon Dioxide (22-30) mmol/L Glucose (74-99) mg/dL POC Glucose (mg/dL) 154 H 159 H 150 H (75-99) mg/dL Albumin (3.5-5.0) g/dL Assessment and Plan Plan: Impression Present on admission acute metabolic encephalopathy suspect due to UTI chronic debility due to a recent CVA Morbid obesity BMI 41 A recent cerebrovascular accident involving the left side of the brain resulting in right side weakness Dyslipidemia Type 2 diabetes insulin requiring hemoglobin A1c 6.3 Status post February 23 loop recorder insertion to rule out possibility of episodes intermittent paroxysmal atrial fibrillation History of a recent CVA resulting in visual field deficit secondary to occipital stroke Present on admission stage II pressure ulcer on coccyx. 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 guajardo infectious disease Invanz 1 g daily for additional 4 day course PT OT eval continue Resume home meds as appropriate Monitor blood sugars address as indicated DVT and GI prophylaxis The above impression and plan of care have been discussed and directed by signing physician. Martita Bowser, nurse practitioner, acting as scribe for signing physician.
[2017-03-08 12:18] VITALS: PULSE 68
[2017-03-08 12:30] LABS: Glucose,Whole Blood 154 mg/dL (75-99)
--- NOTE | 2017-03-08 15:27 | PN ---
DATE OF SERVICE: 03/08/2017 Reason for followup is: 1. ESBL E. coli, urinary tract infection. 2. Sacral wound. INTERVAL HISTORY: The patient is afebrile. She is breathing comfortably. Oral intake is poor per the RN. No nausea, vomiting or any diarrhea. On examination, blood pressure is 152/73 with a pulse of 57, temperature 98.1, she is 97% on 2 L nasal cannula. General description is an elderly female lying in bed, in no distress. RESPIRATORY SYSTEM: Unlabored breathing, clear to auscultation anteriorly. HEART: S1, S2, regular rate and rhythm. ABDOMEN: Soft, no tenderness. Sacral wound with no cellulitis. LAB: Hemoglobin is 15.2, white count of 5.6 with a BUN of 13, creatinine 0.74. DIAGNOSTIC IMPRESSION: Patient with ESBL Escherichia coli urinary tract infection for the patient to be on 6 days of IV antibiotic therapy. She may have 4 days of IV Invanz through a peripheral IV. If that is not covered, other option will be ( ) 3 gm p.o. x1. ( ) RN. SQUIRES
--- NOTE | 2017-03-10 15:12 | CDI ---
In responding to this query, please exercise your independent professional judgment. The [facility] Coding Staff and Clinical Documentation Specialists appreciate your assistance in clarifying documentation, maintaining compliance with coding guidelines, accurately documenting patients condition and capturing severity of illness. The fact that a question is asked does not imply that any particular answer is desired or expected. Communication forms are a method of clarifying documentation and are not made part of the Legal Health Record. Thank you in advance for your clarification. Last Revision, May 2015 Date: 03/10/2017 3:00:00 PM From: SHITAL Strange Deborah Biskner, Internal Communications Manager Admit Date: 03/02/2017 2:59:00 PM Patient Name: Nola Escobar Visit Number: [id number] Discharge Date: Dr. Moe Mcleod The patient presented to the ED lethargic and altered mental status. History and physical documents metabolic encephalopathy, urinary tract infection and possible sepsis. The diagnosis of sepsis is not carried throughout the chart or to the DS. Vital Signs: Temp 99.6, pulse 74, resp 16, BP 112/65 and WBC 7.8 Treatment: IV Levaquin. In your professional opinion, can you please clarify? Sepsis ruled in Sepsis ruled out Other Unable to determine Please document in your progress notes and discharge summary in order to capture severity of illness and risk of mortality. Include clinical findings that support your diagnosis. FYI: Press F11 to launch patient chart. If you have a question about this query, please contact Pati Reddy Internal Communications Manager at [phone] between 8am and 5pm. TAVIA
== END 2017-03-08 15:49 | DRG 871 ==
LOC: EC 12:11 → 4MS4W 14:59 → EEVIPCON 14:59 → 4MS4W 03-03 10:38
PROVIDERS: ADMIT Family Medicine; ATTEND Family Medicine
DX: A41.9 Sepsis, unspecified organism (principal); G93.41 Metabolic encephalopathy; L89.152 Pressure ulcer of sacral region, stage 2; N39.0 Urinary tract infection, site not specified; I69.354 Hemiplegia and hemiparesis following cerebral infarction affecting left non-dominant side; E66.01 Morbid (severe) obesity due to excess calories; E11.319 Type 2 diabetes mellitus with unspecified diabetic retinopathy without macular edema; B96.20 Unspecified Escherichia coli [E. coli] as the cause of diseases classified elsewhere; E78.5 Hyperlipidemia, unspecified; F12.90 Cannabis use, unspecified, uncomplicated; F17.200 Nicotine dependence, unspecified, uncomplicated; I10 Essential (primary) hypertension; Z16.12 Extended spectrum beta lactamase (ESBL) resistance; Z79.02 Long term (current) use of antithrombotics/antiplatelets; Z79.4 Long term (current) use of insulin; Z79.899 Other long term (current) drug therapy; Z80.9 Family history of malignant neoplasm, unspecified; Z83.3 Family history of diabetes mellitus; Z87.440 Personal history of urinary (tract) infections
CPT/HCPCS: 36415; 70470; 71020; 80053; 80306; 81001; 82550; 82553; 83036; 84484; 85025; 85610; 85730; 87077; 87086; 87186; 93005; 94640; 94760; 96361; 96365; 99285

== ENCOUNTER 2017-03-28 07:22 | Day surgery (SDC) | payer MEDICARE ==
[2017-03-23 14:02] VITALS: BMI 41.4
[~2017-03-28 07:22] MED LIST: LACTATED RINGERS 1,000 ML IV SCH; LIDOCAINE 1% 20 ML VIAL (10MG/ML) FOR IV START INTRADERMA PRN
[2017-03-28 08:06] VITALS: TEMP 98.2
[2017-03-28 08:22] LABS: Glucose,Whole Blood 198 mg/dL (75-99)
[2017-03-28] MEDS ORDERED: PROPOFOL 10 MG/ML 20 ML VIAL IV ONE (09:09)
[2017-03-28] MEDS ORDERED: PHENYLEPHRINE-0.9% NACL SYG 1 MG/10 ML SYRINGE ONE (09:09)
[2017-03-28] MEDS ORDERED: LIDOCAINE 1% INJ 10MG/ML (20 ML MDV) ONE (09:09)
--- NOTE | 2017-03-28 09:54 | P.PCN ---
Date of Procedure: 03/28/17 Preoperative Diagnosis: Postoperative Diagnosis: Procedure(s) Performed: Procedure: Esophagogastroduodenoscopy and percutaneous gastrostomy feeding tube placement hepatic Preoperative diagnosis: Recent CVA with pre-esophageal dysphagia and failure to thrive. Postoperative diagnosis: Successful replacement of a [employer] 20- Croatian gastrostomy feeding tube. Preparation and sedation: Was provided by anesthesia. Brief clinical history: The patient is 66-year-old female who was recently hospitalized for cerebrovascular accident resulting in right-sided weakness and pre-esophageal dysphagia and failure to thrive. The patient was hospitalized after that for urinary tract infections. She is referred for this evaluation because of failure to thrive. Procedure: With the patient in the supine position and after informed consent and adequate sedation, I passed the Olympus-GIF 160 video upper endoscope through the cricopharyngeus down the esophagus. The esophagus appeared healthy. The endoscope was then passed into the stomach which was insufflated with air and inspected in detail including the retroflex view in the cardia. No obvious abnormalities were noted. Finally, the endoscope was passed through the pylorus into the duodenum. Pyloric channel, duodenal bulb, post bulbar area and descending duodenum appeared within normal limits. At this point I proceeded to place a gastrostomy feeding tube. The skin was cleansed with Betadine. 1% Xylocaine was used for local anesthesia and a small incision was made using #11 blade. The needle trocar was then thrusted through the abdominal incision. Once in the gastric lumen a guidewire was passed which was captured with the snare and then the guidewire was withdrawn by withdrawing the snare with the endoscope. The [employer] 20-Croatian gastrostomy feeding tube was then advanced over the guidewire until it emerged through the abdominal incision, then it was pulled into position. I advanced endoscope back over the guidewire into the stomach to confirm the placement and it appeared satisfactory. The patient tolerated the procedure well and did not have any immediate medications. Plan: Will consult the dietitian to order tube feedings which can be started tomorrow. Further plans can be made based on her course. Implants: Indications for Procedure: Operative Findings: Description of Procedure:
[2017-03-28 09:56] LABS: Glucose,Whole Blood 194 mg/dL (75-99)
[2017-03-28 10:33] VITALS: PULSE 85; RESP 16
[2017-03-28 10:50] VITALS: BP 144/77
== END 2017-03-28 11:40 ==
LOC: ORWHC2ENDO 07:22
DX: R62.7 Adult failure to thrive (principal); I48.91 Unspecified atrial fibrillation; Z79.01 Long term (current) use of anticoagulants; I10 Essential (primary) hypertension; E78.5 Hyperlipidemia, unspecified; Z86.718 Personal history of other venous thrombosis and embolism; J44.9 Chronic obstructive pulmonary disease, unspecified; K21.9 Gastro-esophageal reflux disease without esophagitis; F17.200 Nicotine dependence, unspecified, uncomplicated; E11.9 Type 2 diabetes mellitus without complications; Z79.4 Long term (current) use of insulin; Z86.73 Personal history of transient ischemic attack (TIA), and cerebral infarction without residual deficits; H35.00 Unspecified background retinopathy; Z79.899 Other long term (current) drug therapy
CPT/HCPCS: 43246; J2001; J2370; J2704; B4087

== ENCOUNTER 2017-04-06 22:03 | Inpatient (IN) | payer MEDICARE, OTHER ==
[2017-04-06 22:18] LABS: Glucose,Whole Blood 352 mg/dL (75-99)
[2017-04-06] MEDS ORDERED: DILTIAZEM 125 MG in SODIUM CHLORIDE 0.9% 100 ML IV ONE (22:25)
[2017-04-06] MEDS ORDERED: ACETAMINOPHEN TAB 325 MG TAB PO STA (22:26)
--- NOTE | 2017-04-06 22:30 | ED ---
Altered Mental Status HPI - General Chief Complaint: Altered Mental Status Stated Complaint: Altered Mental Status Time Seen by Provider: 04/06/17 22:23 Source: family (Daughters), EMS Mode of arrival: EMS Limitations: altered mental status - History of Present Illness Initial Comments: This patient is a 66-year-old woman brought from detention to be valid for altered mental status. The patient's reportedly had cerebellar stroke affecting bilateral cerebellum about 7 weeks ago and has been at detention since that time. The patient's daughter states that the patient usually can state the daughter's name but she was not able to do this today. Since the stroke, the patient's baseline is that she typically answers questions that are asked of her though she usually does not initiate conversation. She does have bilateral weakness per the patient's daughters. Again today the patient was not responding to them verbally. MD Complaint: altered mental status, decreased responsiveness Onset/Timin -: days(s) Severity: moderate Consistency of Symptoms: getting worse Context: history of similar presentation - Related Data Home Medications Medication Instructions Recorded Confirmed Bisacodyl [Dulcolax] 10 mg RECTAL DAILY PRN 03/02/17 04/06/17 INSULIN LISPRO (humaLOG) [humaLOG See Protocol SQ ACHS 03/02/17 04/06/17 (formulary)] Insulin Glargine [Lantus] 20 unit SQ HS 03/02/17 04/06/17 Magnesium Hydroxide [Milk of 2,400 mg PO DAILY PRN 03/02/17 04/06/17 Magnesia] Acetaminophen Tab [Tylenol] 650 mg PO Q6HR PRN 03/23/17 04/06/17 Apixaban [Eliquis] 5 mg PO BID 03/23/17 04/06/17 Ipratropium-Albuterol Nebulize 3 ml INHALATION RT-TID 03/23/17 04/06/17 [Duoneb 0.5 mg-3 mg/3 ml Soln] Multivitamins, Thera [Multivitamin 1 tab PO DAILY 03/23/17 04/06/17 (formulary)] Lisinopril [Prinivil] 20 mg PO DAILY 04/06/17 04/06/17 Metoprolol Tartrate [Lopressor] 25 mg PO BID 04/06/17 04/06/17 Na Phos,M-B/Na Phos,Di-Ba [Fleet 133 ml RECTAL DAILY PRN 04/06/17 04/06/17 Adult] Previous Rx's Medication Instructions Recorded Famotidine [Pepcid] 20 mg PO DAILY tab 02/24/17 Furosemide [Lasix] 40 mg PO DAILY tab 02/24/17 Allergies Allergy/AdvReac Type Severity Reaction Status Date / Time No Known Allergies Allergy Verified 04/06/17 22:28 Review of Systems ROS Statement: Those systems with pertinent positive or pertinent negative responses have been documented in the HPI. ROS Other: All systems not noted in ROS Statement are negative. Limitations: ROS unobtainable due to patients medical condition (Nonverbal) Past Medical History Past Medical History: Atrial Fibrillation, CVA/TIA, Diabetes Mellitus, Deep Vein Thrombosis (DVT), Eye Disorder, GERD/Reflux, Hyperlipidemia, Hypertension, Pneumonia Additional Past Medical History / Comment(s): HOSPITALIZED 03/02-03/08/17 FOR LETHARGY,UTI WITH METABOLIC ENCEPHALOPATHY. , HX OF CVA WITH RIGHT SIDED WEAKNESS , DECUBITUS ULCERS ON BUTTOCKS. (HX OF HEEL ULCERS ALSO) ,JUDSON LIFT USED TO MOVE TO WHEELCHAIR.,INCONTINENT., NURSE STATES NOT EATING -TAKES VERY SMALL AMTS AND NEEDS TO BE FED. , HAS LOOP RECORDER., OXYGEN AT 4 LITERS. , STATES PT WILL ANSWER YES OR NO BUT UNSURE IF SHE COMPREHENDS., HX OF UTI'S. 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 History of Any Multi-Drug Resistant Organisms: ESBL Date of last positivie culture/infection: 03/03/17 ESBL E.coli MDRO Source:: Urine Past Surgical History: Appendectomy, Back Surgery, Section, Cholecystectomy, Hernia Repair, Tubal Ligation Additional Past Surgical History / Comment(s): RT EYE SURG for diabetic retinopathy, lumbar fusion, PAPO FOOT SPUR SURG. Picc insertion.nereida, loop recorder Past Anesthesia/Blood Transfusion Reactions: No Reported Reaction Past Psychological History: No Psychological Hx Reported Smoking Status: Former smoker Past Alcohol Use History: None Reported Past Drug Use History: None Reported - Past Family History Mother Family Medical History: Cancer, Diabetes Mellitus Additional Family Medical History / Comment(s): mother is . Father History Unknown: Yes Daughter(s) Family Medical History: Diabetes Mellitus General Exam Limitations: altered mental status General appearance: obtunded, obese Head exam: Present: atraumatic, normocephalic Eye exam: Present: PERRL ENT exam: Present: mucous membranes dry Neck exam: Present: normal inspection Respiratory exam: Present: rhonchi. Absent: respiratory distress, wheezes Cardiovascular Exam: Present: tachycardia, irregular rhythm, systolic murmur. Absent: diastolic murmur, rubs, gallop GI/Abdominal exam: Present: soft. Absent: distended, tenderness, guarding, rebound Extremities exam: Present: other (Patient has inflatable boots bilaterally). Absent: tenderness, pedal edema Neurological exam: Present: altered Skin exam: Present: warm, dry, intact, normal color. Absent: rash Course Vital Signs 04/06/17 04/06/17 04/06/17 22:10 23:01 23:11 Temperature 101.3 F H Pulse Rate 188 H 155 H 156 H Respiratory 18 20 20 Rate Blood Pressure 112/80 139/76 98/65 O2 Sat by Pulse 91 L 96 95 Oximetry 04/06/17 04/06/17 04/06/17 23:21 23:31 23:41 Temperature Pulse Rate 152 H 122 H 124 H Respiratory 20 20 20 Rate Blood Pressure 94/52 107/56 106/59 O2 Sat by Pulse 98 100 98 Oximetry 04/07/17 00:17 Temperature 98.7 F Pulse Rate 99 Respiratory 20 Rate Blood Pressure 117/83 O2 Sat by Pulse 100 Oximetry Medical Decision Making - Lab Data Result diagrams: 04/06/17 22:55 04/06/17 22:55 Lab Results 04/06/17 04/06/17 04/06/17 Range/Units 22:07 22:24 22:55 WBC (3.8-10.6) k/uL RBC (3.80-5.40) m/uL Hgb (11.4-16.0) gm/dL Hct (34.0-46.0) % MCV (80.0-100.0) fL MCH (25.0-35.0) pg MCHC (31.0-37.0) g/dL RDW (11.5-15.5) % Plt Count (150-450) k/uL Neutrophils % % Lymphocytes % % Monocytes % % Eosinophils % % Basophils % % Neutrophils # (1.3-7.7) k/uL Lymphocytes # (1.0-4.8) k/uL Monocytes # (0-1.0) k/uL Eosinophils # (0-0.7) k/uL Basophils # (0-0.2) k/uL PT (9.0-12.0) sec INR (<1.2) APTT (22.0-30.0) sec Sodium (137-145) mmol/L Potassium (3.5-5.1) mmol/L Chloride (98-107) mmol/L Carbon Dioxide (22-30) mmol/L Anion Gap mmol/L BUN (7-17) mg/dL Creatinine (0.52-1.04) mg/dL Est GFR (MDRD) Af Amer (>60 ml/min/1.73 sqM) Est GFR (MDRD) Non-Af (>60 ml/min/1.73 sqM) Glucose (74-99) mg/dL POC Glucose (mg/dL) 352 H (75-99) mg/dL POC Glu Forging Press Lever Tender ID Lisa Madrigal Plasma Lactic Acid Leonidas (0.7-2.0) mmol/L Calcium (8.4-10.2) mg/dL Magnesium (1.6-2.3) mg/dL Total Bilirubin (0.2-1.3) mg/dL AST (14-36) U/L ALT (9-52) U/L Alkaline Phosphatase (38-126) U/L Troponin I 0.025 (0.000-0.034) ng/mL Total Protein (6.3-8.2) g/dL Albumin (3.5-5.0) g/dL Urine Color Yellow Urine Appearance Turbid H (Clear) Urine pH 6.0 (5.0-8.0) Ur Specific [place] 1.016 (1.001-1.035) Urine Protein 2+ H (Negative) Urine Glucose (UA) 3+ H (Negative) Urine Ketones Negative (Negative) Urine Blood Moderate H (Negative) Urine Nitrite Negative (Negative) Urine Bilirubin Negative (Negative) Urine Urobilinogen <2.0 (<2.0) mg/dL Ur Leukocyte Esterase Large H (Negative) Urine WBC >182 H (0-5) /hpf Urine WBC Clumps Many H (None) /hpf Urine Bacteria Many H (None) /hpf 04/06/17 04/06/17 04/06/17 Range/Units 22:55 22:55 22:55 WBC 7.6 (3.8-10.6) k/uL RBC 4.62 (3.80-5.40) m/uL Hgb 15.1 (11.4-16.0) gm/dL Hct 45.8 (34.0-46.0) % MCV 99.0 (80.0-100.0) fL MCH 32.6 (25.0-35.0) pg MCHC 32.9 (31.0-37.0) g/dL RDW 14.1 (11.5-15.5) % Plt Count 124 L (150-450) k/uL Neutrophils % 67 % Lymphocytes % 22 % Monocytes % 7 % Eosinophils % 2 % Basophils % 1 % Neutrophils # 5.1 (1.3-7.7) k/uL Lymphocytes # 1.7 (1.0-4.8) k/uL Monocytes # 0.5 (0-1.0) k/uL Eosinophils # 0.1 (0-0.7) k/uL Basophils # 0.1 (0-0.2) k/uL PT 11.4 (9.0-12.0) sec INR 1.1 (<1.2) APTT 22.5 (22.0-30.0) sec Sodium 147 H (137-145) mmol/L Potassium 5.6 H (3.5-5.1) mmol/L Chloride 110 H (98-107) mmol/L Carbon Dioxide 27 (22-30) mmol/L Anion Gap 10 mmol/L BUN 92 H* (7-17) mg/dL Creatinine 1.00 (0.52-1.04) mg/dL Est GFR (MDRD) Af Amer >60 (>60 ml/min/1.73 sqM) Est GFR (MDRD) Non-Af 55 (>60 ml/min/1.73 sqM) Glucose 419 H (74-99) mg/dL POC Glucose (mg/dL) (75-99) mg/dL POC Glu Forging Press Lever Tender ID Plasma Lactic Acid Leonidas (0.7-2.0) mmol/L Calcium 9.3 (8.4-10.2) mg/dL Magnesium 2.7 H (1.6-2.3) mg/dL Total Bilirubin 0.9 (0.2-1.3) mg/dL AST 26 (14-36) U/L ALT 26 (9-52) U/L Alkaline Phosphatase 113 (38-126) U/L Troponin I (0.000-0.034) ng/mL Total Protein 7.1 (6.3-8.2) g/dL Albumin 3.5 (3.5-5.0) g/dL Urine Color Urine Appearance (Clear) Urine pH (5.0-8.0) Ur Specific [place] (1.001-1.035) Urine Protein (Negative) Urine Glucose (UA) (Negative) Urine Ketones (Negative) Urine Blood (Negative) Urine Nitrite (Negative) Urine Bilirubin (Negative) Urine Urobilinogen (<2.0) mg/dL Ur Leukocyte Esterase (Negative) Urine WBC (0-5) /hpf Urine WBC Clumps (None) /hpf Urine Bacteria (None) /hpf 04/06/17 Range/Units 22:55 WBC (3.8-10.6) k/uL RBC (3.80-5.40) m/uL Hgb (11.4-16.0) gm/dL Hct (34.0-46.0) % MCV (80.0-100.0) fL MCH (25.0-35.0) pg MCHC (31.0-37.0) g/dL RDW (11.5-15.5) % Plt Count (150-450) k/uL Neutrophils % % Lymphocytes % % Monocytes % % Eosinophils % % Basophils % % Neutrophils # (1.3-7.7) k/uL Lymphocytes # (1.0-4.8) k/uL Monocytes # (0-1.0) k/uL Eosinophils # (0-0.7) k/uL Basophils # (0-0.2) k/uL PT (9.0-12.0) sec INR (<1.2) APTT (22.0-30.0) sec Sodium (137-145) mmol/L Potassium (3.5-5.1) mmol/L Chloride (98-107) mmol/L Carbon Dioxide (22-30) mmol/L Anion Gap mmol/L BUN (7-17) mg/dL Creatinine (0.52-1.04) mg/dL Est GFR (MDRD) Af Amer (>60 ml/min/1.73 sqM) Est GFR (MDRD) Non-Af (>60 ml/min/1.73 sqM) Glucose (74-99) mg/dL POC Glucose (mg/dL) (75-99) mg/dL POC Glu Forging Press Lever Tender ID Plasma Lactic Acid Leonidas 1.5 (0.7-2.0) mmol/L Calcium (8.4-10.2) mg/dL Magnesium (1.6-2.3) mg/dL Total Bilirubin (0.2-1.3) mg/dL AST (14-36) U/L ALT (9-52) U/L Alkaline Phosphatase (38-126) U/L Troponin I (0.000-0.034) ng/mL Total Protein (6.3-8.2) g/dL Albumin (3.5-5.0) g/dL Urine Color Urine Appearance (Clear) Urine pH (5.0-8.0) Ur Specific [place] (1.001-1.035) Urine Protein (Negative) Urine Glucose (UA) (Negative) Urine Ketones (Negative) Urine Blood (Negative) Urine Nitrite (Negative) Urine Bilirubin (Negative) Urine Urobilinogen (<2.0) mg/dL Ur Leukocyte Esterase (Negative) Urine WBC (0-5) /hpf Urine WBC Clumps (None) /hpf Urine Bacteria (None) /hpf - EKG Data -: EKG Interpreted by Mo EKG shows normal: axis (Normal), intervals (Normal), ST-T waves (ST depression and T inversion in the inferior and anterolateral leads concerning for possible ischemia.) Rate: tachycardia Interpretation: other (The underlying rhythm appears to be atrial fibrillation with rapid ventricular rate in the 160s.) Disposition Clinical Impression: Atrial fibrillation with rapid ventricular response, Urinary tract infection, Sepsis, Hyperkalemia, Diabetes, Hyperglycemia Disposition: ADMITTED IP TO THIS [facility] Condition: Serious Referrals: Moe Mcleod MD [Primary Care Provider] - 1-2 days
[2017-04-06] MEDS ORDERED: ACETAMINOPHEN SUPPOSITORY 650 MG SUPP RECTAL STA (22:34)
[2017-04-06] MEDS: SODIUM CHLORIDE 0.9% 500 ML IV SCH ×2 (22:52→22:53)
[2017-04-06 22:57] LABS: Appearance,Urine Turbid (Clear); Bacteria,Urine Many /hpf; Bilirubin,Urine Negative (Negative); Glucose,Urine (UA) 3+ (Negative); Ketones,Urine Negative (Negative); Leukocyte Esterase,Urine Large (Negative); Nitrite,Urine Negative (Negative); Particle Count 160511; Protein,Urine 2+ (Negative); Specific Gravity,Urine 1.016 (1.001-1.035); UA Billing (MACRO vs. MICRO) MICRO; Urobilinogen,Urine <2.0 mg/dL (<2.0); WBC,Urine >182 /hpf (0-5)
[2017-04-06 23:17] LABS: Basophils # (A) 0.1 k/uL (0-0.2); Basophils % (A) 1 %; CH 31.5; Eosinophils # (A) 0.1 k/uL (0-0.7); Eosinophils % (A) 2 %; HCT 45.8 % (34.0-46.0); HDW 2.32; HGB 15.1 gm/dL (11.4-16.0); Luc # (Auto) 0.17; Luc % (Auto) 2; Lymphocytes # (A) 1.7 k/uL (1.0-4.8); Lymphocytes % (A) 22 %; MCH 32.6 pg (25.0-35.0); MCHC 32.9 g/dL (31.0-37.0); Mean Platelet Volume 10.9; Monocytes # (A) 0.5 k/uL (0-1.0); Monocytes % (A) 7 %; Neutrophils # (A) 5.1 k/uL (1.3-7.7); Neutrophils % (A) 67 %; RBC 4.62 m/uL (3.80-5.40); RDW 14.1 % (11.5-15.5); WBC 7.6 k/uL (3.8-10.6); WBC (Perox) 7.39
[2017-04-06 23:21] LABS: ALT 26 U/L (9-52); AST 26 U/L (14-36); Alkaline Phosphatase 113 U/L (38-126); Anion Gap 10 mmol/L; Calcium 9.3 mg/dL (8.4-10.2); Carbon Dioxide 27 mmol/L (22-30); Chloride 110 mmol/L (98-107); Glucose 419 mg/dL (74-99); Magnesium 2.7 mg/dL (1.6-2.3); Non-African American GFR(MDRD) 55 (>60 ml/min/1.73 sqM); Potassium 5.6 mmol/L (3.5-5.1); Sodium 147 mmol/L (137-145); Total Bilirubin 0.9 mg/dL (0.2-1.3); Total Protein 7.1 g/dL (6.3-8.2)
[2017-04-06 23:25] LABS: INR 1.1 (<1.2); Partial Thromboplastin Time 22.5 sec (22.0-30.0); Prothrombin Time 11.4 sec (9.0-12.0)
[2017-04-06 23:38] LABS: Blood Urea Nitrogen 92 mg/dL (7-17)
--- NOTE | 2017-04-06 23:39 | XR ---
EXAM: XR Chest, 1 View CLINICAL HISTORY: Fever. TECHNIQUE: Frontal view of the chest. COMPARISON: CXR dated 03/02/2017. FINDINGS: Lungs: Possible right infrahilar and left lung base opacities which may represent atelectasis. Lungs otherwise appear clear. No evidence of overt pulmonary edema. Pleural space: No significant pleural effusion or pneumothorax. Heart: Cardiac silhouette is enlarged. Mediastinum: Stable mediastinal contours. Bones/joints: Stable osseous structures. Upper abdomen: Mild elevation of the right hemidiaphragm. Other findings: elementary teacher projects over the left heart border. IMPRESSION: 1. Possible right infrahilar and left lung base opacities which may represent atelectasis. Lungs otherwise appear overall clear. 2. Enlarged cardiac silhouette, stable. 3. elementary teacher projects over the left heart border, stable. 4. Mild elevation of right hemidiaphragm.
[2017-04-07] MEDS ORDERED: NITROGLYCERIN SL TABS 0.4 MG TAB SUBLINGUAL PRN (00:14)
[2017-04-07] MEDS ORDERED: SODIUM POLYSTYRENE SULFONATE 15 GM/60 ML BOTTLE PEG/G-TUBE STA (00:18)
[2017-04-07] MEDS ORDERED: INSULIN REGULAR 100 UNIT/ML VIAL SQ STA (00:18)
[2017-04-07] MEDS ORDERED: SODIUM CHLORIDE 0.9% 1,000 ML IV ONE (00:19)
[2017-04-07 00:39] LABS: Glucose,Whole Blood 351 mg/dL (75-99)
[2017-04-07 06:33] LABS: Creatine Kinase <20 U/L (30-135)
[2017-04-07 06:46] LABS: Creatine Kinase MB <0.2 ng/mL (0.0-2.4); Troponin I 0.021 ng/mL (0.000-0.034)
[2017-04-07 07:00] LABS: CH 32.1; CHCM 31.8; HCT 40.9 % (34.0-46.0); HDW 2.37; HGB 12.9 gm/dL (11.4-16.0); Large Platelets Flag Slight; MCHC 31.4 g/dL (31.0-37.0); MCV 101.7 fL (80.0-100.0); Macrocytosis Slight; Mean Platelet Volume 12.2; RBC 4.02 m/uL (3.80-5.40); RDW 14.7 % (11.5-15.5); WBC 6.3 k/uL (3.8-10.6)
[2017-04-07] MEDS: SODIUM CHLORIDE 0.9% 1,000 ML IV SCH ×3 (07:07→11:49)
[2017-04-07 07:12] LABS: Anion Gap 8 mmol/L; Blood Urea Nitrogen 74 mg/dL (7-17); Calcium 8.6 mg/dL (8.4-10.2); Carbon Dioxide 28 mmol/L (22-30); Chloride 117 mmol/L (98-107); Glucose 248 mg/dL (74-99); Non-African American GFR(MDRD) >60 (>60 ml/min/1.73 sqM); Potassium 4.2 mmol/L (3.5-5.1); Sodium 153 mmol/L (137-145)
[2017-04-07 07:16] LABS: Glucose,Whole Blood 242 mg/dL (75-99)
[2017-04-07] MEDS ORDERED: MAGNESIUM HYDROXIDE 2,400 MG/10 ML CUP PO PRN (07:16)
[2017-04-07] MEDS ORDERED: NA PHOS,M-B/NA PHOS,DI-BA 133 ML ENEMA RECTAL PRN (07:16)
[2017-04-07] MEDS ORDERED: BISACODYL 10 MG SUPP RECTAL PRN (07:16)
[2017-04-07] MEDS ORDERED: ACETAMINOPHEN TAB 325 MG TAB PO PRN (07:16)
[2017-04-07] MEDS ORDERED: INSULIN LISPRO (humaLOG) 300 UNIT/3 ML VIAL SQ SCH (07:30)
[2017-04-07] MEDS: INSULIN LISPRO (humaLOG) 300 UNIT/3 ML VIAL SQ SCH ×4 (07:53→21:38)
[2017-04-07] MEDS: FAMOTIDINE 20 MG TAB PO SCH (08:14)
[2017-04-07] MEDS: METOPROLOL TARTRATE 25 MG TAB PO SCH ×2 (08:14→21:38)
[2017-04-07] MEDS: LISINOPRIL 20 MG TAB PO SCH (08:15)
[2017-04-07] MEDS: FUROSEMIDE 40 MG TAB PO SCH (08:15)
[2017-04-07] MEDS ORDERED: APIXABAN 5 MG TAB PO SCH (09:00)
[2017-04-07] MEDS: IPRATROPIUM-ALBUTEROL 3 ML NEB INHALATION SCH ×3 (09:08→19:32)
--- NOTE | 2017-04-07 10:28 | P.CRDCN ---
History of Present Illness Consult date: 04/07/17 Consult reason: atrial fibrillation History of present illness: 66-year-old lady who suffered CVA and is currently in a [facility] bedridden is found to have worsening mental status and is brought in to hospital for the same. She has history of atrial fibrillation is responsible for her CVA. Thelma anne was diagnosed on a loop recorder reading. Subsequent follow-up of the loop recorder showed episodes of bradycardia. She is currently behaving like tachybradycardia syndrome and with thinking of doing a pacemaker on her in the outpatient setting. He is brought she is brought in with worsening sensorium. At the time of my evaluation this morning she is not responding to my questions. Review of Systems ROS unobtainable: due to mental status Past Medical History Past Medical History: Atrial Fibrillation, CVA/TIA, Diabetes Mellitus, Deep Vein Thrombosis (DVT), Eye Disorder, GERD/Reflux, Hyperlipidemia, Hypertension, Pneumonia Additional Past Medical History / Comment(s): HOSPITALIZED 03/02-03/08/17 FOR LETHARGY,UTI WITH METABOLIC ENCEPHALOPATHY. , HX OF CVA WITH RIGHT SIDED WEAKNESS , DECUBITUS ULCERS ON BUTTOCKS. (HX OF HEEL ULCERS ALSO) ,JUDSON LIFT USED TO MOVE TO WHEELCHAIR.,INCONTINENT., NURSE STATES NOT EATING -TAKES VERY SMALL AMTS AND NEEDS TO BE FED. , HAS LOOP RECORDER., OXYGEN AT 4 LITERS. , STATES PT WILL ANSWER YES OR NO BUT UNSURE IF SHE COMPREHENDS., HX OF UTI'S. 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 History of Any Multi-Drug Resistant Organisms: ESBL Date of last positivie culture/infection: 03/03/17 ESBL E.coli MDRO Source:: Urine Past Surgical History: Appendectomy, Back Surgery, Section, Cholecystectomy, Hernia Repair, Tubal Ligation Additional Past Surgical History / Comment(s): RT EYE SURG for diabetic retinopathy, lumbar fusion, PAPO FOOT SPUR SURG. Picc insertion.nereida, loop recorder Past Anesthesia/Blood Transfusion Reactions: No Reported Reaction Past Psychological History: No Psychological Hx Reported Smoking Status: Former smoker Past Alcohol Use History: None Reported Additional Past Alcohol Use History / Comment(s): Patient was a smoker of half a pack of cigarettes per day for 27 years. Past Drug Use History: None Reported - Past Family History Mother Family Medical History: Cancer, Diabetes Mellitus Additional Family Medical History / Comment(s): mother is . Father History Unknown: Yes Daughter(s) Family Medical History: Diabetes Mellitus Medications and Allergies Home Medications Medication Instructions Recorded Confirmed Type Famotidine [Pepcid] 20 mg PO DAILY tab 02/24/17 04/06/17 Rx Furosemide [Lasix] 40 mg PO DAILY tab 02/24/17 04/06/17 Rx Bisacodyl [Dulcolax] 10 mg RECTAL DAILY PRN 03/02/17 04/06/17 History INSULIN LISPRO (humaLOG) [humaLOG See Protocol SQ ACHS 03/02/17 04/06/17 History (formulary)] Insulin Glargine [Lantus] 20 unit SQ HS 03/02/17 04/06/17 History Magnesium Hydroxide [Milk of 2,400 mg PO DAILY PRN 03/02/17 04/06/17 History Magnesia] Acetaminophen Tab [Tylenol] 650 mg PO Q6HR PRN 03/23/17 04/06/17 History Apixaban [Eliquis] 5 mg PO BID 03/23/17 04/06/17 History Ipratropium-Albuterol Nebulize 3 ml INHALATION RT-TID 03/23/17 04/06/17 History [Duoneb 0.5 mg-3 mg/3 ml Soln] Multivitamins, Thera [Multivitamin 1 tab PO DAILY 03/23/17 04/06/17 History (formulary)] Lisinopril [Prinivil] 20 mg PO DAILY 04/06/17 04/06/17 History Metoprolol Tartrate [Lopressor] 25 mg PO BID 04/06/17 04/06/17 History Na Phos,M-B/Na Phos,Di-Ba [Fleet 133 ml RECTAL DAILY PRN 04/06/17 04/06/17 History Adult] Allergies Allergy/AdvReac Type Severity Reaction Status Date / Time No Known Allergies Allergy Verified 04/06/17 22:28 Physical Exam Vitals: Vital Signs Temp Pulse Pulse Resp BP BP Pulse Ox 04/07/17 08:00 98.4 F 88 20 106/50 95 04/07/17 04:00 98.9 F 98 18 127/82 97 04/07/17 00:58 99.1 F 115 H 18 106/61 99 04/07/17 00:48 108 H 18 104/57 100 04/07/17 00:17 98.7 F 99 20 117/83 100 04/06/17 23:41 124 H 20 106/59 98 04/06/17 23:31 122 H 20 107/56 100 04/06/17 23:21 152 H 20 94/52 98 04/06/17 23:11 156 H 20 98/65 95 04/06/17 23:01 155 H 20 139/76 96 04/06/17 22:10 101.3 F H 188 H 18 112/80 91 L Intake and Output 04/06/17 04/07/17 04/07/17 22:59 06:59 14:59 Other: Voiding Method Diaper Incontinent # Voids 1 # Bowel Movements 1 Weight 102.058 kg 105.5 kg General: The patient is awake and alert, in no distress, and does not appear acutely ill. Skin: Skin is warm and dry and no rashes or lesions are noted. Eye: Pupils are equal, round and reactive to light, extra-ocular movements are intact; there is normal conjunctiva bilaterally. Ears, nose, mouth and throat: There are moist mucous membranes and no oral lesions. Neck: The neck is supple, there is no tenderness or JVD. Cardiovascular: Irregular systolic murmur at the apex Respiratory: Lungs are clear to auscultation, respirations are non-labored, breath sounds are equal. Gastrointestinal: Soft, non-distended, non-tender abdomen without masses or organomegaly noted. There is no rebound or guarding present. Bowel sounds are unremarkable. Back: There is no tenderness to palpation in the midline. There is no obvious deformity. Musculoskeletal: Normal ROM, no tenderness, There is no pedal edema. There is no calf tenderness or swelling. Extremities: No edema. Vascular: Femoral pulse is normal. Posterior tibial pulses are normal .Dorsalis pedis is palpable. Neurological: Could not perform detailed exam Psychiatric: Altered mental status Results 04/07/17 05:13 04/07/17 05:13 Cardiac Enzymes 04/06/17 04/06/17 04/07/17 Range/Units 22:55 22:55 05:13 AST 26 (14-36) U/L CK-MB (CK-2) <0.2 (0.0-2.4) ng/mL Troponin I 0.025 0.021 (0.000-0.034) ng/mL Coagulation 04/06/17 Range/Units 22:55 PT 11.4 (9.0-12.0) sec APTT 22.5 (22.0-30.0) sec CBC 04/06/17 04/07/17 Range/Units 22:55 05:13 WBC 7.6 6.3 (3.8-10.6) k/uL RBC 4.62 4.02 (3.80-5.40) m/uL Hgb 15.1 12.9 (11.4-16.0) gm/dL Hct 45.8 40.9 (34.0-46.0) % Plt Count 124 L 111 L (150-450) k/uL Comprehensive Metabolic Panel 04/06/17 04/07/17 Range/Units 22:55 05:13 Sodium 147 H 153 H (137-145) mmol/L Potassium 5.6 H 4.2 (3.5-5.1) mmol/L Chloride 110 H 117 H (98-107) mmol/L Carbon Dioxide 27 28 (22-30) mmol/L BUN 92 H* 74 H (7-17) mg/dL Creatinine 1.00 0.89 (0.52-1.04) mg/dL Glucose 419 H 248 H (74-99) mg/dL Calcium 9.3 8.6 (8.4-10.2) mg/dL AST 26 (14-36) U/L ALT 26 (9-52) U/L Alkaline Phosphatase 113 (38-126) U/L Total Protein 7.1 (6.3-8.2) g/dL Albumin 3.5 (3.5-5.0) g/dL Current Medications Generic Name Dose Route Start Last Admin Trade Name Freq PRN Reason Stop Dose Admin Acetaminophen 650 mg 04/07/17 07:16 Tylenol Tab PO Q6HR PRN Pain Albuterol/Ipratropium 3 ml 04/07/17 08:00 04/07/17 09:08 Duoneb 0.5 Mg-3 Mg/3 Ml Soln INHALATION Not Given RT-TID BONNY Apixaban 5 mg 04/07/17 09:00 04/07/17 08:15 Eliquis PO 5 mg BID [facility] Administration Aspirin 325 mg 04/08/17 09:00 Aspirin PO DAILY [facility] Bisacodyl 10 mg 04/07/17 07:16 Dulcolax RECTAL DAILY PRN Constipation Famotidine 20 mg 04/07/17 09:00 04/07/17 08:14 Pepcid PO 20 mg DAILY BONNY Administration Furosemide 40 mg 04/07/17 09:00 04/07/17 08:15 Lasix PO 40 mg DAILY [facility] Administration Diltiazem HCl 125 mg/ Sodium 125 mls @ 5 mls/hr 04/06/17 22:25 04/06/17 22:53 Chloride IV 04/07/17 22:24 5 mg/hr .Q24H ONE 5 mls/hr Protocol Administration 5 MG/HR Sodium Chloride 1,000 mls @ 100 mls/hr 04/07/17 00:15 04/07/17 08:15 Saline 0.9% IV 100 mls/hr .Q10H [facility]ONNY Administration Insulin Glargine 20 unit 04/07/17 21:00 Lantus SQ HS [facility] Insulin Human Lispro 0 unit 04/07/17 07:30 04/07/17 07:53 Humalog SQ 5 unit ACHS [facility] Administration Protocol Lisinopril 20 mg 04/07/17 09:00 04/07/17 08:15 Zestril PO 20 mg DAILY [facility] Administration Magnesium Hydroxide 2,400 mg 04/07/17 07:16 Milk Of Magnesia PO DAILY PRN Constipation Metoprolol Tartrate 25 mg 04/07/17 09:00 04/07/17 08:14 Lopressor PO 25 mg BID [facility] Administration Multivitamins 1 each 04/07/17 12:00 Theragran PO DAILY@1200 [facility] Nitroglycerin 0.4 mg 04/07/17 00:14 Nitrostat SUBLINGUAL Q5M PRN Chest Pain Sodium Biphosphate/Sodium Phosphate 133 ml 04/07/17 07:16 Fleet Adult RECTAL DAILY PRN Constipation Intake and Output 04/06/17 04/07/17 04/07/17 22:59 06:59 14:59 Other: Voiding Method Diaper Incontinent # Voids 1 # Bowel Movements 1 Weight 102.058 kg 105.5 kg 04/07/17 05:13 04/07/17 05:13 EKG Interpretations (text) Atrial fibrillation with rapid ventricular rate Assessment and Plan Plan: Chronic atrial fibrillation with tachybradycardia syndrome CVA with unresponsiveness I reviewed outpatient records. Patient will have a permanent pacemaker on Monday as she is on an anticoagulant at the moment. We will continue with rate control measures at this time
[2017-04-07] MEDS ORDERED: ceFAZolin 2 GM in SODIUM CHLORIDE 0.9% 100 ML IVPB ONE (10:50)
[2017-04-07] MEDS ORDERED: ceFAZolin 1,000 MG in SODIUM CHLORIDE 0.9% IRRIGATIO 250 ML IRRIGATION ONE (10:50)
[2017-04-07 12:23] LABS: Creatine Kinase <20 U/L (30-135)
[2017-04-07 12:37] LABS: Creatine Kinase MB 0.3 ng/mL (0.0-2.4); Troponin I <0.012 ng/mL (0.000-0.034)
[2017-04-07] MEDS: MULTIVITAMINS, THERA 1 EACH TAB PO SCH (12:38)
[2017-04-07 12:50] LABS: Glucose,Whole Blood 187 mg/dL (75-99)
--- NOTE | 2017-04-07 13:49 | HP ---
HISTORY AND PHYSICAL CHIEF COMPLAINT: A 56-year-old white female with altered mental status. HISTORY OF PRESENT ILLNESS: A 56-year-old white female with a recent cerebellar stroke affecting bilateral cerebellum about 7 weeks ago admitted to the care home. Since that time, she is unable to eat or drink due to the stroke. A PEG tube was placed, but she does communicate and talk and tries to focus. Since the stroke, the patient's baseline is she answers questions on and off when she wants to, but she became altered mental status. She was found to have in the emergency room severe pyelonephritis, at which time she was admitted with sepsis due to pyelonephritis and admitted to the hospital at this time. She was also found to have a sugar in the 400s and was admitted for sepsis, severe hyperglycemia and UTI with metabolic encephalopathy worsening and a prior CVA. HOME MEDICATIONS: 1. Humalog. 2. Dulcolax. 3. Lantus. 4. Milk of magnesia. 5. Tylenol. 6. Eliquis. 7. DuoNeb. 8. Multivitamin. 9. Prinivil. 10.Lopressor. ALLERGIES: No known drug allergies. REVIEW OF SYSTEMS: Fourteen point review of systems is negative except for mentioned in the HPI. ENDOCRINE: BMI is very elevated. She does not do much ambulating out of the bed. PAST MEDICAL HISTORY: Atrial fibrillation, CVA, TIA, vision loss secondary to CVA, permanent blindness in the one eye on the right eye and left eye she can see a little bit out of since the stroke; diabetes mellitus, DVTs, GERD, dyslipidemia, hypertension, pneumonia, hospitalized 03/02/2017 to 03/08/2017 for UTI with metabolic encephalopathy, history of CVA with right-sided weakness, decubitus ulcers on the buttocks, stage II ulcer on the right buttock. She is not eating, takes very small amounts, needs to be fed. She has a loop recorder. She has oxygen at 4L. She answers yes and no. She is getting tube feeding. She is blind in the right eye, poor vision in the left eye as mentioned above, diabetic retinopathy, ESBL history. SURGICAL HISTORY: Appendectomy, back surgery, , cholecystectomy, hernia repair, tubal ligation, right eye surgery for diabetic retinopathy, lumbar fusion, foot surgery. SOCIAL HISTORY: Former smoker. No alcohol. No illicit drugs. PAST FAMILY HISTORY: Mother had cancer, diabetes mellitus. Mother . Father and youngest daughter have diabetes mellitus. PHYSICAL EXAMINATION: VITAL SIGNS: Stable, afebrile. Please see further orders. ENDOCRINE: BMI is over 40. CARDIOVASCULAR: S1, S2. Lungs show a scattered wheeze. Integument shows stage II decubitus ulcer on the right buttock. She has decreased pedal pulses; dorsalis pedis, posterior tibial, inflatable boots bilaterally for pressure sores. NECK: Supple. OPHTHALMOLOGIC: Pupils equal, round, reactive to light and accommodation. HEENT: Normocephalic atraumatic. VASCULAR: Normal dorsalis pedis, posterior tibial. Temp 101.3, pulses in the 150s, currently 110 to 188 in the ER, blood pressure 98 to 112 over 70s to 80s, temp 98.7, blood pressure 117/83 currently. Sodium 147, potassium 5.6, BUN is 92, creatinine 1.0. Platelet count 124. Other labs are reviewed, include sugar in the 400s. UA shows moderate blood, large leukocyte esterase, 182 white cells. Glucose 419 in the ER. ASSESSMENT: 1. Atrial fibrillation with rapid ventricular response. 2. Urinary tract infection with sepsis. 3. Metabolic encephalopathy due to sepsis due to urinary tract infection. 4. Stage II decubitus ulcer on the right buttock. 5. Insulin-dependent diabetes mellitus and uncontrolled blood sugars. 6. Hyperkalemia. 7. Hyponatremia. PLAN: IV antibiotics and IV Infectious Disease consult, Cardiology consult, rehydration. Replace and fix electrolytes to normal range. Please see further orders in the chart. MMODL / IJN: [id number] /
[2017-04-07] MEDS: MEROPENEM 1 GM in SODIUM CHLORIDE 0.9% 100 ML IVPB SCH (14:38)
[2017-04-07 16:39] LABS: Glucose,Whole Blood 238 mg/dL (75-99)
[2017-04-07 21:05] LABS: Glucose,Whole Blood 343 mg/dL (75-99)
[2017-04-07] MEDS: INSULIN GLARGINE 100 UNIT/ML 10 ML VIAL SQ SCH (21:37)
[2017-04-08] MEDS: MEROPENEM 1 GM in SODIUM CHLORIDE 0.9% 100 ML IVPB SCH ×4 (00:11→23:54)
[2017-04-08 03:03] LABS: Cholesterol 146 mg/dL (<200); HDL Cholesterol 21 mg/dL (40-60)
[2017-04-08 06:05] LABS: Glucose,Whole Blood 386 mg/dL (75-99)
[2017-04-08] MEDS: INSULIN LISPRO (humaLOG) 300 UNIT/3 ML VIAL SQ SCH ×4 (06:37→21:38)
--- NOTE | 2017-04-08 08:20 | CONS ---
CONSULTATION DATE OF SERVICE: 04/07/2017. REASON FOR CONSULTATION: 1. A fever, urinary tract infection. 2. Right gluteal pressure ulcer. HISTORY OF PRESENT ILLNESS: The patient is a 66-year-old, female, who was brought into the ER with mental status changes. Currently the patient started to notice the patient seems to be very weak and lethargic. Unable to answer any questions. No clear history of any nausea or vomiting. No diarrhea. The patient did have a fever on arrival to the ER. She did have a UA that was significantly positive. Patient did receive a dose of Rocephin that was subsequently discontinued. She was admitted to the hospital and ID was consulted for further recommendation regarding antibiotic therapy. At time my evaluation this morning, the patient has been more awake and alert. No further fevers. Denies any headache or chest pain. No cough. No abdominal pain, or any diarrhea. However, overall the patient not a very good historian so most of the information has been obtained by asking some leading questions. REVIEW OF SYSTEMS: Could not be reliably obtained. The positive points all mentioned in the HPI. PAST MEDICAL HISTORY: Significant for hypertension, hyperlipidemia, diabetes mellitus, DVT, recurrent urinary tract infection and atrial fibrillation. PAST SURGICAL HISTORY: Appendectomy and back surgery. , cholecystectomy, hernia repair and tubal ligation. SOCIAL HISTORY: Recently quit smoking. Did have a history of marijuana use. No drinking. FAMILY HISTORY: Mother has diabetes mellitus and cancer. ALLERGIES: No known drug allergies. MEDICATION: The patient is currently on: 1. Tylenol. 2. DuoNeb. 3. Dulcolax. 4. Diltiazem. 5. Pepcid. 6. Lasix. 7. Lantus. 8. Humalog. 9. Zestril. 10.Milk of Magnesia. 11.Lopressor. 12.Lasix. EXAMINATION: Blood pressure 126/74 with a pulse of 87, temperature 98, she is 97% on room air. General description is a middle aged female, lying in bed, no tachypnea or accessory muscles of respiration use. HEENT examination: No pallor or scleral icterus. Oral mucosa membranes dry. Neck trachea is central. No thyromegaly. LUNGS: Unlabored breathing. Clear to auscultation anteriorly. No wheeze or crackle. Heart is S1, S2. Regular rate. Irregular rhythm. ABDOMEN: Soft, no tenderness. No rigidity. EXTREMITIES: No edema of the feet. Examination of the right gluteal area the patient did have a stage III pressure ulcer. No surrounding erythema. Soft slough tissue. Neurological: The patient is lethargic though responds to her name. No signs of meningeal irritation. LABS: Hemoglobin is 12.9, white count 6.3, BUN of 74 with a creatinine 0.89. Sodium is slightly elevated 153 with a sodium 117. The urine has been positive with WBC. Cultures are currently pending. DIAGNOSTIC IMPRESSION AND PLAN: 1. Patient admitted to the hospital with mental status changes which is likely multifactorial in this patient who did have a history of recurrent UTI with a previous history of a ESBL pathogen and questionably same or different enteric gram- negative pathogen. 2. Patient who did have a stage III sacral and right gluteal pressure ulcer with no evidence of any cellulitis. PLAN: 1. We will start the patient on meropenem 1 g q8 hours for or possibly ESBL pathogen. 2. We will apply Aquacel silver dressing to the right gluteal pressure ulcer. Keep the area off pressure. 3. We will follow up on the clinical condition and culture to further adjust medication if needed. Thank you for this consultation. Will follow this patient along with you. MMODL / IJN: [id number] /
[2017-04-08] MEDS: IPRATROPIUM-ALBUTEROL 3 ML NEB INHALATION SCH ×3 (08:34→20:35)
[2017-04-08] MEDS ORDERED: ASPIRIN 325 MG TAB PO SCH (09:00)
[2017-04-08] MEDS: FUROSEMIDE 40 MG TAB PO SCH (10:03)
[2017-04-08] MEDS: METOPROLOL TARTRATE 25 MG TAB PO SCH ×2 (10:03→21:38)
[2017-04-08] MEDS: LISINOPRIL 20 MG TAB PO SCH (10:04)
[2017-04-08] MEDS: FAMOTIDINE 20 MG TAB PO SCH (10:04)
[2017-04-08] MEDS ORDERED: HEPARIN SODIUM,PORCINE 5,000 UNIT/ML 1 ML VIAL IV PRN (11:25)
--- NOTE | 2017-04-08 11:26 | P.PN ---
Subjective Principal diagnosis: Atrial fibrillation This is a 66-year-old female with history of CVA, hypertension, hyperlipidemia, prior DVT, diabetes, who resides at a [facility]. Following her CVA the patient had a loop recorder placed, it was noted in the office at the patient had been having paroxysmal rapid atrial fibrillation as well as significant pauses. This was discussed in the office with Dr. Dubose in the plan was to proceed with a pacemaker as an outpatient. Incidentally the patient was admitted to the hospital from the [facility] because of mental status changes, she was found to be in atrial fibrillation. She was also found to have a UTI. Patient is tentatively scheduled to undergo implantation of a permanent pacemaker on Monday by Dr. Dubose. had been on IV Cardizem which was discontinued through the night because of bradycardia. This morning she is in a normal sinus rhythm with occasional he 80s heart rate in the 60s Objective - Vital Signs Vital signs: Vital Signs Temp 99.3 F 04/08/17 04:00 Pulse 110 H 04/08/17 08:44 Resp 18 04/08/17 04:00 BP 127/90 04/08/17 04:00 Pulse Ox 96 04/08/17 08:36 Intake & Output 04/07/17 04/08/17 04/08/17 18:59 06:59 18:59 Intake Total 180 Balance 180 Weight 105.5 kg 105 kg Intake: Oral 180 Other: Voiding Method Diaper Diaper Incontinent Incontinent # Voids 1 - Exam PHYSICAL EXAMINATION: HEENT: [Head is atraumatic, normocephalic. Pupils equal, round. Neck is supple. There is no elevated jugular venous pressure.] HEART EXAMINATION: Heart S1 and S2 systolic murmur is heard CHEST EXAMINATION:[ Lungs are clear to auscultation anteriorly. ] ABDOMEN: [ Soft, nontender. Bowel sounds are heard. No organomegaly noted]. EXTREMITIES:[ 2+ peripheral pulses with no evidence of peripheral edema and no calf tenderness noted]. NEUROLOGIC [patient is awake, occasionally responds with one-word answers. - Labs CBC & Chem 7: 04/07/17 05:13 04/07/17 05:13 Labs: Abnormal Lab Results - Last 24 Hours (Table) 04/07/17 04/07/17 04/07/17 Range/Units 05:13 11:22 12:36 POC Glucose (mg/dL) 187 H (75-99) mg/dL Total Creatine Kinase <20 L (30-135) U/L Triglycerides 213 H (<150) mg/dL HDL Cholesterol 21 L (40-60) mg/dL 04/07/17 04/07/17 04/08/17 Range/Units 16:34 21:02 06:02 POC Glucose (mg/dL) 238 H 343 H 386 H (75-99) mg/dL Total Creatine Kinase (30-135) U/L Triglycerides (<150) mg/dL HDL Cholesterol (40-60) mg/dL Microbiology - Last 24 Hours (Table) 04/06/17 22:55 Blood Culture - Preliminary Blood No Growth after 24 hours 04/06/17 22:24 Urine Culture - Preliminary Urine,Catheterized Assessment and Plan (1) Paroxysmal a-fib Status: Acute (2) Sinus pause Status: Acute (3) Status post placement of implantable loop recorder Status: Acute (4) Diabetes Status: Acute (5) Altered mental status Status: Acute (6) CVA (cerebral vascular accident) Status: Acute (7) Type 2 diabetes mellitus with diabetic ulcer of right lower leg Status: Acute (8) UTI (urinary tract infection) Status: Acute Plan: From cardiology perspective, patient anticoagulation is currently on hold in preparation for pacemaker implantation on Monday. We will continue to follow. DNP note has been reviewed, I agree with a documented findings and plan of care. Patient was seen and examined.
[2017-04-08 11:34] LABS: Glucose,Whole Blood 296 mg/dL (75-99)
[2017-04-08 11:48] LABS: Basophils % (A) 1 %; CH 31.8; CHCM 31.3; Eosinophils # (A) 0.1 k/uL (0-0.7); Eosinophils % (A) 3 %; HCT 42.5 % (34.0-46.0); HDW 2.37; Luc # (Auto) 0.07; Luc % (Auto) 2; Lymphocytes # (A) 0.5 k/uL (1.0-4.8); Lymphocytes % (A) 12 %; MCH 31.2 pg (25.0-35.0); MCHC 30.6 g/dL (31.0-37.0); MCV 102.2 fL (80.0-100.0); Macrocytosis Slight; Mean Platelet Volume 10.9; Monocytes # (A) 0.3 k/uL (0-1.0); Monocytes % (A) 6 %; Neutrophils # (A) 3.3 k/uL (1.3-7.7); Neutrophils % (A) 76 %; RBC 4.16 m/uL (3.80-5.40); RDW 14.7 % (11.5-15.5); WBC 4.4 k/uL (3.8-10.6); WBC (Perox) 4.22
[2017-04-08 12:14] LABS: INR 1.1 (<1.2); Prothrombin Time 11.4 sec (9.0-12.0)
[2017-04-08] MEDS: HEPARIN SODIUM,PORCINE/D5W PMX 25,000 UNIT in DEXTROSE/WATER 1 500ML.BAG IV SCH (12:33)
[2017-04-08] MEDS: SODIUM CHLORIDE 0.9% 1,000 ML IV SCH (12:38)
[2017-04-08] MEDS: MULTIVITAMINS, THERA 1 EACH TAB PO SCH (12:39)
--- NOTE | 2017-04-08 16:50 | PN ---
PROGRESS NOTE DATE OF SERVICE: 04/08/2017. REASON FOR FOLLOWUP: 1. Urinary tract infection. 2. Right gluteal pressure ulcer. INTERVAL HISTORY: The patient did have a low-grade fever this morning of 100.5; however, the patient has been afebrile since then. The patient denies having any chest pain, shortness of breath or cough. No abdominal pain or any diarrhea. PHYSICAL EXAMINATION: Blood pressure is 113/62 with a pulse of 71, temperature of 100.5. General description is an elderly female, lying in bed, in no distress. RESPIRATORY SYSTEM: Unlabored breathing. Clear to auscultation anteriorly. HEART: S1, S2. Regular rate and rhythm. ABDOMEN: Soft, no tenderness. LABS: Hemoglobin 13.5, white count of 4.4, urine showing a gram-negative. Blood culture has been negative. DIAGNOSTIC IMPRESSION AND PLAN: 1. Patient with gram-negative urinary tract infection and patient admitted to hospital with mental status changes and fever. Previous history of ESBL Escherichia coli, currently on meropenem. Did have low-grade fever this morning. Waiting for urine culture finalized to adjust antibiotics further. 2. Patient did have Stage III gluteal pressure ulcer, Aquacel Silver dressing and keep the area off the pressure. MMODL / IJN: [id number] /
[2017-04-08 16:53] LABS: Glucose,Whole Blood 189 mg/dL (75-99)
[2017-04-08 21:17] LABS: Glucose,Whole Blood 303 mg/dL (75-99)
[2017-04-08] MEDS: INSULIN GLARGINE 100 UNIT/ML 10 ML VIAL SQ SCH (21:38)
[2017-04-09 06:15] LABS: Basophils % (A) 1 %; CH 32.1; CHCM 31.5; Eosinophils # (A) 0.2 k/uL (0-0.7); Eosinophils % (A) 5 %; HCT 40.3 % (34.0-46.0); HDW 2.38; HGB 12.3 gm/dL (11.4-16.0); Luc # (Auto) 0.13; Luc % (Auto) 3; Lymphocytes % (A) 21 %; MCH 31.4 pg (25.0-35.0); MCHC 30.6 g/dL (31.0-37.0); MCV 102.5 fL (80.0-100.0); Macrocytosis Slight; Monocytes # (A) 0.3 k/uL (0-1.0); Monocytes % (A) 8 %; Neutrophils # (A) 2.8 k/uL (1.3-7.7); Neutrophils % (A) 63 %; RBC 3.93 m/uL (3.80-5.40); RDW 15.1 % (11.5-15.5); WBC 4.5 k/uL (3.8-10.6); WBC (Perox) 4.44
[2017-04-09 06:28] LABS: ALT 35 U/L (9-52); AST 25 U/L (14-36); Alkaline Phosphatase 92 U/L (38-126); Anion Gap 6 mmol/L; Blood Urea Nitrogen 43 mg/dL (7-17); Calcium 8.8 mg/dL (8.4-10.2); Carbon Dioxide 29 mmol/L (22-30); Chloride 117 mmol/L (98-107); Glucose 415 mg/dL (74-99); Non-African American GFR(MDRD) >60 (>60 ml/min/1.73 sqM); Sodium 152 mmol/L (137-145); Total Bilirubin 0.5 mg/dL (0.2-1.3); Total Protein 6.1 g/dL (6.3-8.2)
[2017-04-09] MEDS: INSULIN LISPRO (humaLOG) 300 UNIT/3 ML VIAL SQ SCH ×4 (06:34→21:32)
[2017-04-09 06:36] LABS: Potassium 4.1 mmol/L (3.5-5.1)
[2017-04-09 06:38] LABS: Glucose,Whole Blood 374 mg/dL (75-99)
[2017-04-09] MEDS: IPRATROPIUM-ALBUTEROL 3 ML NEB INHALATION SCH ×3 (07:05→20:19)
--- NOTE | 2017-04-09 07:54 | PN ---
PROGRESS NOTE SUBJECTIVE: A 66-year-old white female, with metabolic encephalopathy secondary to UTI and sepsis secondary to UTI and right gluteal pressure ulcer. T-max is 100.5. She is more alert today talking more. Not sure about her vision. We are going to get a consult with ophthalmologic doctor to check on her right vision but mentally she is talking more. Blood pressure is 113/62, pulse 70s, T-max 100.5. Cardiovascular S1, S2. Lungs transmitted upper air sounds. GI soft. Hematology negative Homans sign. She has a stage II decubitus ulcer on her buttock on the right side. White count 4.4, hemoglobin 13.5. Urine shows gram-negative. Blood cultures were negative. ASSESSMENT: 1. Sepsis secondary to gram-negative urinary tract infection. 2. Metabolic encephalopathy. 3. History ESBL E coli. Currently on meropenem. 4. Stage III pressure ulcer, gluteal pressure ulcer. Aquacel Silver dressing to keep pressure off this area. Please follow up next 24 to 48 hours. MMODL / IJN: [id number] /
[2017-04-09] MEDS: FUROSEMIDE 40 MG TAB PO SCH (09:46)
[2017-04-09] MEDS: METOPROLOL TARTRATE 25 MG TAB PO SCH ×2 (09:46→21:32)
[2017-04-09] MEDS: FAMOTIDINE 20 MG TAB PO SCH (09:46)
[2017-04-09] MEDS: LISINOPRIL 20 MG TAB PO SCH (09:46)
[2017-04-09] MEDS: MEROPENEM 1 GM in SODIUM CHLORIDE 0.9% 100 ML IVPB SCH ×2 (09:50→17:22)
--- NOTE | 2017-04-09 10:09 | PN ---
PROGRESS NOTE SUBJECTIVE: 66-year-old, white female, with metabolic encephalopathy secondary to UTI and sepsis. She is on PEG tube feedings for dysphagia. She has poor oral intake. She has a stage III decubitus ulcer on the buttocks which is being treated with fluids. PEG tube feedings is going well. She is more alert. She remains on broad spectrum IV antibiotics. Dr. Hays is consulted. Urology consulted for recurring UTI for prophylactic antibiotics that she will need as an outpatient. Lungs are clear. Cardiovascular S1, S2. ASSESSMENT: 1. Recurrent urinary tract infection with sepsis. 2. Metabolic encephalopathy secondary to sepsis. 3. Recent stroke with vision loss. Ophthalmology was consulted. Urology and Infectious Disease for stage II to III decubitus ulcers and recurrent UTI for prophylactic antibiotic recommendations. MMODL / IJN: [id number] /
[2017-04-09] MEDS: HEPARIN SODIUM,PORCINE/D5W PMX 25,000 UNIT in DEXTROSE/WATER 1 500ML.BAG IV SCH (10:22)
--- NOTE | 2017-04-09 11:44 | P.PN ---
Progress Note - Text This is a 66-year-old female with history of CVA, hypertension, hyperlipidemia, prior DVT, diabetes, [facility] Following her CVA the patient had a loop recorder placed, it was noted in the office at the patient had been having paroxysmal rapid atrial fibrillation as well as significant pauses. This was discussed in the office with Dr. Dubose in the plan was to proceed with a pacemaker as an outpatient. Incidentally the [facility], she was found to be in atrial fibrillation. Patient is tentatively scheduled to undergo implantation of a permanent pacemaker on Monday by Dr. Dubose.
[2017-04-09 11:50] LABS: Glucose,Whole Blood 214 mg/dL (75-99)
[2017-04-09] MEDS: MULTIVITAMINS, THERA 1 EACH TAB PO SCH (12:53)
[2017-04-09] MEDS: SODIUM CHLORIDE 0.9% 1,000 ML IV SCH (13:02)
[2017-04-09 16:35] LABS: Glucose,Whole Blood 174 mg/dL (75-99)
--- NOTE | 2017-04-09 17:45 | PN ---
PROGRESS NOTE DATE OF SERVICE: 04/09/2017. REASON FOR FOLLOW UP: 1. ESBL E coli urinary tract infection. 2. Right gluteal pressure ulcer. INTERVAL HISTORY: The patient overall feels better and has improved. No fever has been recorded today. She has been breathing comfortably. Slightly more awake, alert, breathing comfortably. Denies any chest pain, cough. No abdominal pain or any diarrhea. EXAMINATION: Blood pressure 149/72 with a pulse of 57, temperature 98. She is 94% on room air. General description is a middle aged female, lying in bed, in no distress. RESPIRATORY SYSTEM: Unlabored breathing. Clear to auscultation anteriorly. HEART: S1, S2. Regular rate and rhythm. ABDOMEN: Soft, no tenderness. LABS: Hemoglobin 12.2, white count of 4.5 with a BUN of 43. Creatinine 0.80. Urine within ESBL E coli. Blood cultures have been negative. DIAGNOSTIC IMPRESSION AND PLAN: 1. Patient admitted to the hospital with a fever mental status changes multifactorial with a component of urinary tract infection. Urine showing an ESBL E. coli currently covered with meropenem. The patient will need a PICC line for outpatient IV antibiotic therapy with antibiotics for at least 10 more days. Family was present at bedside. Questions answered. 2. Patient with right gluteal pressure ulcer. Will recommend Aquacel silver dressing. Keep the area off the pressure. MMODL / IJN: [id number] /
[2017-04-09 20:48] LABS: Glucose,Whole Blood 223 mg/dL (75-99)
[2017-04-09] MEDS: INSULIN GLARGINE 100 UNIT/ML 10 ML VIAL SQ SCH (21:32)
[2017-04-10] MEDS: MEROPENEM 1 GM in SODIUM CHLORIDE 0.9% 100 ML IVPB SCH ×4 (00:24→23:48)
[2017-04-10 05:23] LABS: Glucose,Whole Blood 319 mg/dL (75-99)
[2017-04-10 05:57] LABS: Basophils # (A) 0.1 k/uL (0-0.2); Basophils % (A) 1 %; CH 31.4; CHCM 31.2; Eosinophils # (A) 0.2 k/uL (0-0.7); Eosinophils % (A) 5 %; HCT 39.5 % (34.0-46.0); HDW 2.49; HGB 12.6 gm/dL (11.4-16.0); Luc # (Auto) 0.15; Luc % (Auto) 3; Lymphocytes # (A) 1.4 k/uL (1.0-4.8); Lymphocytes % (A) 27 %; MCH 32.2 pg (25.0-35.0); MCHC 31.9 g/dL (31.0-37.0); MCV 100.9 fL (80.0-100.0); Macrocytosis Slight; Mean Platelet Volume 10.1; Monocytes # (A) 0.3 k/uL (0-1.0); Monocytes % (A) 6 %; Neutrophils % (A) 58 %; RBC 3.91 m/uL (3.80-5.40); RDW 14.2 % (11.5-15.5); WBC 5.2 k/uL (3.8-10.6)
[2017-04-10] MEDS ORDERED: ceFAZolin 2 GM in SODIUM CHLORIDE 0.9% 100 ML IVPB ONE (06:00)
[2017-04-10] MEDS ORDERED: ceFAZolin 1,000 MG in SODIUM CHLORIDE 0.9% IRRIGATIO 250 ML IRRIGATION ONE (06:00)
[2017-04-10] MEDS: LISINOPRIL 20 MG TAB PO SCH (06:14)
[2017-04-10] MEDS: METOPROLOL TARTRATE 25 MG TAB PO SCH ×2 (06:14→21:24)
[2017-04-10] MEDS: FAMOTIDINE 20 MG TAB PO SCH (06:14)
[2017-04-10] MEDS: INSULIN LISPRO (humaLOG) 300 UNIT/3 ML VIAL SQ SCH ×4 (06:15→21:24)
[2017-04-10] MEDS: HEPARIN SODIUM,PORCINE/D5W PMX 25,000 UNIT in DEXTROSE/WATER 1 500ML.BAG IV SCH (06:16)
[2017-04-10 06:27] LABS: Manual Review Performed
[2017-04-10] MEDS: IPRATROPIUM-ALBUTEROL 3 ML NEB INHALATION SCH ×3 (07:01→19:36)
[2017-04-10] MEDS ORDERED: IV FLUID CONTINUATION 1,000 ML IV ONE (07:40)
[2017-04-10] MEDS ORDERED: IODIXANOL 320 MG/ML 100 ML IV ONE (08:07)
[2017-04-10] MEDS ORDERED: MIDAZOLAM 2 MG/2 ML VIAL IV ONE (08:41)
[2017-04-10] MEDS ORDERED: fentaNYL (PF) 50 MCG/ML 2 ML AMP IV ONE (08:41)
[2017-04-10] MEDS ORDERED: HYDROcodone/APAP 5-325MG 1 EACH TAB PO PRN (09:50)
--- NOTE | 2017-04-10 11:57 | P.PCN ---
Date of Procedure: 04/10/17 Preoperative Diagnosis: Sick sinus syndrome with intermittent atrial fibrillation associated with a long pauses and rapid heartbeats. Postoperative Diagnosis: The same Procedure(s) Performed: Axillary venography, dual-chamber permanent pacemaker insertion Description of Procedure: HISTORY: This is a 66-year-old female who had a loop recorder insertion for evaluation of unexplained CVA. She was found to have bouts of atrial fibrillation and evidence of sick sinus syndrome with tachycardia alternating with a long pauses. A permanent pacemaker insertion is requested by Dr. Davies. CONSENT:I have discussed the risks, benefits and alternative therapies for the above-mentioned procedure and for both sedation/analgesia as well as necessary blood product administration, if indicated, as they pertain to this patient. The patient has indicated understanding and acceptance of the risks and procedures discussed. PROCEDURE: Patient was brought to the lab in a fasting state. Patient was prepped and draped in the usual fashion. Patient was given IV sedation with fentanyl and Versed. The skin below the left clavicle was infiltrated with lidocaine. An incision was made parallel to deltopectoral groove was deepened until the pectoral fascia was exposed. A pocket was created by blunt dissection and cautery. Axillary venography was performed to delineate the course of the axillary vein. 2 sticks were performed into extrathoracic portion of the axillary vein and 2 sheaths were advanced over the guidewires and left in subclavian vein. Conscious Sedation: Versed 1 mg Fentanyl 50 g Duration 90 minutes LEADS: ATRIAL: This is manufactured by [employer]. Model number is 7741. Serial number is [id number] VENTRICULAR: . This is manufactured by [employer]. Model number is 7742. Serial number is [id number] THE DEVICE: Manufactured by [employer]. Model number is L111 and the serial number is [id number] The ventricular lead is maneuvered l with help of a straight and curved stylets into the left ventricle apical region. Satisfactory position was obtained and threshold measurements were made. The atrial lead was then maneuvered into the right atrial appendage. And thresholds were obtained. THRESHOLDS: ATRIUM: The minimal patient threshold was 0.5 V at a pulse width of 0.5 ms. The impedance is 578 ohms P-wave: 3.5 V VENTRICLE: The minimal patient threshold is high and 4 V at a pulse width of 0.5 ms. The impedance is 741. R-wave: 12.8 mV The leads and pulse generator remained in the pocket after it was washed with antibiotics. Pocket was closed in the usual fashion. The fascia was closed with 2-0 Prolene ,the subcutaneous tissue was closed with 3-0 Prolene and the skin was closed with 4-0 Prolene. PROGRAMMING: MODE: DDDR RATE: 60-120 OUTPUT: Atrium Ventricle FINAL IMPRESSION: #1. Axillary venography #2. Dual-chamber permanent pacemaker implantation COMPLICATIONS: . None PLAN: . Patient will be transferred to telemetry unit. She will a monitored for the next 24 hours. Prophylactic antibiotics to be continued. Chest x-ray in the morning. Further recommendations depend upon the clinical course
[2017-04-10 11:58] LABS: Glucose,Whole Blood 183 mg/dL (75-99)
[2017-04-10] MEDS: SODIUM CHLORIDE 0.9% 1,000 ML IV SCH (12:46)
[2017-04-10] MEDS: FUROSEMIDE 40 MG TAB PO SCH (14:56)
[2017-04-10] MEDS: MULTIVITAMINS, THERA 1 EACH TAB PO SCH (14:56)
[2017-04-10] MEDS: ceFAZolin 2 GM in SODIUM CHLORIDE 0.9% 100 ML IVPB SCH ×2 (15:01→21:24)
[2017-04-10 16:49] LABS: Glucose,Whole Blood 175 mg/dL (75-99)
[2017-04-10 20:57] LABS: Glucose,Whole Blood 195 mg/dL (75-99)
[2017-04-10] MEDS: INSULIN GLARGINE 100 UNIT/ML 10 ML VIAL SQ SCH (21:24)
--- NOTE | 2017-04-10 22:13 | PN ---
PROGRESS NOTE SUBJECTIVE: 66-year-old, white female with stage III decubitus ulcer. Status post pacemaker placement for sick sinus syndrome, atrial fibrillation. The patient is improving at this point. Urinary tract infection is improving. She is more alert and more awake. She is eating and drinking better. Status post pace maker. She is getting tube feedings. Her vision still remains poor. ASSESSMENT: 1. Metabolic encephalopathy secondary to urinary tract infection with sepsis. 2. Sick sinus syndrome, status post pacemaker placement. 3. Insulin-dependent diabetes mellitus. 4. Obesity. 5. Stage III decubitus ulcer. Please see further orders. We will monitor cardiac, status post pacemaker, diabetes. Continue current treatment. IV antibiotics for metabolic encephalopathy due to UTI with sepsis. MMODL / IJN: [id number] /
[2017-04-11] MEDS: ceFAZolin 2 GM in SODIUM CHLORIDE 0.9% 100 ML IVPB SCH ×2 (03:30→10:24)
--- NOTE | 2017-04-11 05:10 | PN ---
PROGRESS NOTE DATE OF SERVICE: 04/10/2017 REASON FOR FOLLOWUP: 1. ESBL E. coli urinary tract infection. 2. Right gluteal pressure ulcer stage III. INTERVAL HISTORY: The patient is afebrile. She is status post pacemaker placement this morning. The patient tolerated the procedure. Has been breathing comfortably. Denies any chest pain. No cough. Abdominal pain or any diarrhea. PHYSICAL EXAMINATION: On examination, blood pressure is 122/64 with a pulse of 60, temperature of 97.1. She is 97% on room air. General description is an elderly female lying in bed, in no distress. RESPIRATORY SYSTEM: Unlabored breathing. Clear to auscultation anteriorly. HEART: S1, S2. Regular rate and rhythm. ABDOMEN: Soft, no tenderness. LABS: Hemoglobin is 10.6, white count 5.2. DIAGNOSTIC IMPRESSION AND PLAN: 1. Patient with an ESBL Escherichia coli urinary tract infection. Responding to the meropenem. She will need a PICC line for outpatient IV Invanz therapy. Duration of antibiotic should be total of 2 weeks. Family was present at bedside. They have multiple questions that were answered regarding how to prevent infection in the future. 2. Patient with right gluteal pressure ulcer stage III. Aquacel silver dressing. Keep the area off the pressure. MMODL / IJN: [id number] /
[2017-04-11 05:29] LABS: Glucose,Whole Blood 231 mg/dL (75-99)
[2017-04-11 06:42] LABS: Basophils # (A) 0.1 k/uL (0-0.2); Basophils % (A) 1 %; CH 31.4; CHCM 32.5; Eosinophils # (A) 0.3 k/uL (0-0.7); Eosinophils % (A) 4 %; HCT 37.1 % (34.0-46.0); HDW 2.69; HGB 12.3 gm/dL (11.4-16.0); Luc # (Auto) 0.17; Luc % (Auto) 3; Lymphocytes # (A) 1.7 k/uL (1.0-4.8); Lymphocytes % (A) 25 %; MCH 32.2 pg (25.0-35.0); MCHC 33.2 g/dL (31.0-37.0); MCV 97.2 fL (80.0-100.0); Mean Platelet Volume 10.7; Monocytes # (A) 0.3 k/uL (0-1.0); Monocytes % (A) 4 %; Neutrophils # (A) 4.5 k/uL (1.3-7.7); Neutrophils % (A) 64 %; RBC 3.82 m/uL (3.80-5.40); RDW 14.5 % (11.5-15.5); WBC (Perox) 7.02
[2017-04-11] MEDS: INSULIN LISPRO (humaLOG) 300 UNIT/3 ML VIAL SQ SCH ×4 (06:49→22:54)
[2017-04-11] MEDS: IPRATROPIUM-ALBUTEROL 3 ML NEB INHALATION SCH ×3 (07:53→20:29)
--- NOTE | 2017-04-11 08:25 | XR ---
EXAMINATION TYPE: XR chest 2V DATE OF EXAM: 04/11/2017 COMPARISON: 04/06/2017 TECHNIQUE: PA and lateral views submitted. HISTORY: Lead placement FINDINGS: The lungs are clear and there is no pneumothorax, pleural effusion, or focal pneumonia. There is a double lead pacemaker with no sizable pneumothorax. Heart remains enlarged and stable. Ath erosclerotic change aorta. Arthropathy of the shoulders. IMPRESSION: 1. No acute process.
[2017-04-11] MEDS ORDERED: APIXABAN 5 MG TAB PO SCH ×2 (09:15→18:00)
[2017-04-11] MEDS: FAMOTIDINE 20 MG TAB PO SCH (10:18)
[2017-04-11] MEDS: LISINOPRIL 20 MG TAB PO SCH (10:18)
[2017-04-11] MEDS: FUROSEMIDE 40 MG TAB PO SCH (10:18)
[2017-04-11] MEDS: METOPROLOL TARTRATE 25 MG TAB PO SCH ×2 (10:18→22:55)
[2017-04-11] MEDS: MEROPENEM 1 GM in SODIUM CHLORIDE 0.9% 100 ML IVPB SCH ×2 (10:24→17:47)
[2017-04-11] MEDS: SODIUM CHLORIDE 0.9% 1,000 ML IV SCH ×2 (10:25→13:19)
[2017-04-11 11:36] LABS: Glucose,Whole Blood 215 mg/dL (75-99)
--- NOTE | 2017-04-11 11:54 | P.PN ---
Subjective Principal diagnosis: Atrial fibrillation This is a 66-year-old female with history of CVA, hypertension, hyperlipidemia, prior DVT, diabetes, who resides at a [facility]. Following her CVA the patient had a loop recorder placed, it was noted in the office at the patient had been having paroxysmal rapid atrial fibrillation as well as significant pauses. This was discussed in the office with Dr. Dubose in the plan was to proceed with a pacemaker as an outpatient. Incidentally the patient was admitted to the hospital from the [facility] because of mental status changes, she was found to be in atrial fibrillation. She was also found to have a UTI. Patient is tentatively scheduled to undergo implantation of a permanent pacemaker on Monday by Dr. Dubose. had been on IV Cardizem which was discontinued through the night because of bradycardia. This morning she is in a normal sinus rhythm with occasional he 80s heart rate in the 60s. 04/11/2017 Patient seen and examined this morning, status post pacemaker implantation of yesterday. Device was interrogated this morning and is functioning appropriately. Chest x-ray was reviewed which does not reveal any evidence of a pneumothorax. Patient did verbalize this morning that she has no complaints and feels well, hemodynamically stable. Hemoglobin 8.4, potassium 3.7, creatinine 1.3. We will start the Patient on flecainide 100 mg by mouth twice a day today. Objective - Vital Signs Vital signs: Vital Signs Temp 98.2 F 04/11/17 04:00 Pulse 66 04/11/17 08:06 Resp 16 04/11/17 08:00 BP 125/60 04/11/17 08:00 Pulse Ox 99 04/11/17 08:00 Intake & Output 04/10/17 04/11/17 04/11/17 18:59 06:59 18:59 Intake Total 490 360 120 Output Total 200 Balance 290 360 120 Weight 104.5 kg 107 kg Intake: IV 250 Oral 0 0 Tube Feeding 240 360 120 Output: Urine 200 Other: Voiding Method Diaper Diaper Diaper Incontinent Incontinent Incontinent # Voids 2 2 - Exam PHYSICAL EXAMINATION: HEENT: [Head is atraumatic, normocephalic. Pupils equal, round. Neck is supple. There is no elevated jugular venous pressure.] HEART EXAMINATION: Heart S1 and S2 systolic murmur is heard CHEST EXAMINATION:[ Lungs are clear to auscultation anteriorly. Site of pacemaker implantation, dressing is dry and intact.] ABDOMEN: [ Soft, nontender. Bowel sounds are heard. No organomegaly noted]. EXTREMITIES:[ 2+ peripheral pulses with no evidence of peripheral edema and no calf tenderness noted]. NEUROLOGIC [patient is awake, occasionally responds with one-word answers. - Labs CBC & Chem 7: 04/11/17 05:47 04/09/17 05:56 Labs: Abnormal Lab Results - Last 24 Hours (Table) 04/10/17 04/10/17 04/10/17 Range/Units 11:52 16:45 20:53 Plt Count (150-450) k/uL POC Glucose (mg/dL) 183 H 175 H 195 H (75-99) mg/dL 04/11/17 04/11/17 04/11/17 Range/Units 05:26 05:47 11:32 Plt Count 98 L (150-450) k/uL POC Glucose (mg/dL) 231 H 215 H (75-99) mg/dL Microbiology - Last 24 Hours (Table) 04/06/17 22:55 Blood Culture - Preliminary Blood No Growth after 96 hours Assessment and Plan (1) Paroxysmal a-fib Status: Acute (2) Sinus pause Status: Acute (3) Status post placement of implantable loop recorder Status: Acute (4) Diabetes Status: Acute (5) Altered mental status Status: Acute (6) CVA (cerebral vascular accident) Status: Acute (7) Type 2 diabetes mellitus with diabetic ulcer of right lower leg Status: Acute (8) UTI (urinary tract infection) Status: Acute (9) S/P cardiac pacemaker procedure Status: Acute Plan: From cardiology perspective, we will resume the patient's Eliquis from this evening. Start the patient on flecainide 100 mg by mouth twice a day. A be able to be discharged once cleared by the primary, we'll make a follow-up appointment in the office post discharge with the device clinic and Dr. Davies. DNP note has been reviewed, I agree with a documented findings and plan of care. Patient was seen and examined.
--- NOTE | 2017-04-11 13:05 | P.PN ---
Progress Note - Text This is an addendum to the cardiology progress note dictated earlier today. Patient still has a loop recorder in place, the plan is to remove this tomorrow. We will hold the Eliquis until after this procedure has been performed, she may be able to be discharged tomorrow after loop extraction. DNP note has been reviewed, I agree with a documented findings and plan of care. Patient was seen and examined.
[2017-04-11] MEDS: MULTIVITAMINS, THERA 1 EACH TAB PO SCH (13:18)
[2017-04-11] MEDS: FLECAINIDE 50 MG TAB PO SCH ×2 (13:25→22:54)
--- NOTE | 2017-04-11 14:57 | CONS ---
CONSULTATION HISTORY: This is a 66-year-old female admitted for mental status changes. The patient is currently resting comfortably in bed, though not helpful during the interview process. The patient's daughters were present who fortunately were able to help fill me in on the background information for this patient. Apparently, the patient has a longstanding history of diabetes and has had episodes of previous strokes. The patient's daughter states that she has been seen by another medical billing service on [facility] as treatment for her diabetic retinopathy previously. According to their history, she was seen 3 years ago and was given some type of laser treatment to the right eye in an attempt to stabilize her diabetes. Apparently, this was unsuccessful and the patient has not had good vision in this eye since then. It is not known whether the patient has sought a followup care with an eye doctor since the presumed failed procedure 3 years ago. Visual acuity measured "light perception" right eye and 2100 left eye. There was no afferent defect. The patient appeared to have a left-sided visual field defect, which may be a complete hemianopsia that was difficult to determine due to the patient's mental status. Extraocular movements were full. On penlight exam, the anterior segments were "clear and quiet" bilaterally. There appeared to be bilateral cataract changes. Fundus exam revealed multiple dot and blot hemorrhages scattered throughout the posterior pole of both eyes. There were multiple scars noted posteriorly in the right eye. IMPRESSION: 1. Left-sided visual field defect consistent with right-sided brain infarct. It cannot be determined how long ago this occurred based on today's bedside exam. 2. Diabetic retinopathy. I strongly recommended to the patient's daughters that upon discharge she follow up with an doll eye setter, preferably a retina specialist where the determination could be made what the best route for this patient's diabetic retinopathy would involve. We would have to see her in the office on an outpatient basis upon discharge. MMODL / IJN: [id number] /
[2017-04-11 16:31] LABS: Glucose,Whole Blood 311 mg/dL (75-99)
--- NOTE | 2017-04-11 20:07 | P.GSCN ---
History of Present Illness Consult date: 04/11/17 Reason for Consult: UTI Requesting physician: Moe Mcleod History of present illness: The patient is a 66-year-old woman who sustained a left MCA cerebrovascular accident in late January 2017. She was hospitalized and subsequently transferred to [facility]. She was readmitted earlier this month for failure to thrive. Although it is unclear whether or not she had a Epstein catheter prior to that readmission, according to the family she has not had a catheter since that time. She was admitted several days ago with mental status changes, and a urine culture has shown E. coli (ESBL). Cultures showed the same bacteria on several occasions last month, and also in June 2015. She has been treated for this infection with IV antibiotics, typically of 7-14 day duration. A computed tomography scan of the abdomen and pelvis on 02/16/2017 showed no significant genitourinary abnormalities. A 7.6 cm left renal cyst was noted, unchanged compared to a computed tomography scan in 2012. She has not recently experienced typical UTI symptoms such as dysuria or hematuria. She underwent pacemaker insertion yesterday. She is considerably more alert today, though it is unclear whether this is due to the pacemaker for IV antibiotics (Meropenem). Review of Systems - Constitutional Reports lethargy - Respiratory Denies dyspnea - Genitourinary Genitourinary: Denies dysuria, Denies hematuria - Neurological Reports confusion Past Medical History Past Medical History: Atrial Fibrillation, CVA/TIA, Diabetes Mellitus, Deep Vein Thrombosis (DVT), Eye Disorder, GERD/Reflux, Hyperlipidemia, Hypertension, Pneumonia Additional Past Medical History / Comment(s): HOSPITALIZED 03/02-03/08/17 FOR LETHARGY,UTI WITH METABOLIC ENCEPHALOPATHY. , HX OF CVA WITH RIGHT SIDED WEAKNESS , DECUBITUS ULCERS ON BUTTOCKS. (HX OF HEEL ULCERS ALSO) ,JUDSON LIFT USED TO MOVE TO WHEELCHAIR.,INCONTINENT., NURSE STATES NOT EATING -TAKES VERY SMALL AMTS AND NEEDS TO BE FED. , HAS LOOP RECORDER., OXYGEN AT 4 LITERS. , STATES PT WILL ANSWER YES OR NO BUT UNSURE IF SHE COMPREHENDS., HX OF UTI'S. 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 History of Any Multi-Drug Resistant Organisms: ESBL Year Discovered:: 04/06/17 MDRO Source:: Urine Past Surgical History: Appendectomy, Back Surgery, Section, Cholecystectomy, Hernia Repair, Tubal Ligation Additional Past Surgical History / Comment(s): RT EYE SURG for diabetic retinopathy, lumbar fusion, PAPO FOOT SPUR SURG. Picc insertion.nereida, loop recorder Past Anesthesia/Blood Transfusion Reactions: No Reported Reaction Past Psychological History: No Psychological Hx Reported Smoking Status: Former smoker Past Alcohol Use History: None Reported Additional Past Alcohol Use History / Comment(s): Patient was a smoker of half a pack of cigarettes per day for 27 years. Past Drug Use History: None Reported - Past Family History Mother Family Medical History: Cancer, Diabetes Mellitus Additional Family Medical History / Comment(s): mother is . Father History Unknown: Yes Daughter(s) Family Medical History: Diabetes Mellitus Medications and Allergies Home Medications Medication Instructions Recorded Confirmed Type Famotidine [Pepcid] 20 mg PO DAILY tab 02/24/17 04/06/17 Rx Furosemide [Lasix] 40 mg PO DAILY tab 02/24/17 04/06/17 Rx Bisacodyl [Dulcolax] 10 mg RECTAL DAILY PRN 03/02/17 04/06/17 History INSULIN LISPRO (humaLOG) [humaLOG See Protocol SQ ACHS 03/02/17 04/06/17 History (formulary)] Insulin Glargine [Lantus] 20 unit SQ HS 03/02/17 04/06/17 History Magnesium Hydroxide [Milk of 2,400 mg PO DAILY PRN 03/02/17 04/06/17 History Magnesia] Acetaminophen Tab [Tylenol] 650 mg PO Q6HR PRN 03/23/17 04/06/17 History Apixaban [Eliquis] 5 mg PO BID 03/23/17 04/06/17 History Ipratropium-Albuterol Nebulize 3 ml INHALATION RT-TID 03/23/17 04/06/17 History [Duoneb 0.5 mg-3 mg/3 ml Soln] Multivitamins, Thera [Multivitamin 1 tab PO DAILY 03/23/17 04/06/17 History (formulary)] Lisinopril [Prinivil] 20 mg PO DAILY 04/06/17 04/06/17 History Metoprolol Tartrate [Lopressor] 25 mg PO BID 04/06/17 04/06/17 History Na Phos,M-B/Na Phos,Di-Ba [Fleet 133 ml RECTAL DAILY PRN 04/06/17 04/06/17 History Adult] Allergies Allergy/AdvReac Type Severity Reaction Status Date / Time No Known Allergies Allergy Verified 04/06/17 22:28 Surgical - Exam Vital Signs Temp Pulse Resp BP Pulse Ox 101.3 F H 188 H 18 112/80 91 L 04/06/17 22:10 04/06/17 22:10 04/06/17 22:10 04/06/17 22:10 04/06/17 22:10 - General well developed, well nourished, no distress - Abdomen Abdomen: soft, non tender, no masses, no guarding, no rigid, no rebound, no distended Results - Labs 04/11/17 05:47 04/09/17 05:56 Abnormal Lab Results - Last 24 Hours (Table) 04/10/17 04/10/17 04/10/17 Range/Units 11:52 16:45 20:53 Plt Count (150-450) k/uL POC Glucose (mg/dL) 183 H 175 H 195 H (75-99) mg/dL 04/11/17 04/11/17 Range/Units 05:26 05:47 Plt Count 98 L (150-450) k/uL POC Glucose (mg/dL) 231 H (75-99) mg/dL Microbiology - Last 24 Hours (Table) 04/06/17 22:55 Blood Culture - Preliminary Blood No Growth after 96 hours - Imaging CT scan - abdomen: report reviewed, image reviewed Assessment and Plan (1) UTI due to extended-spectrum beta lactamase (ESBL) producing Escherichia coli Status: Acute Plan: In summary, the patient has been treated for recurrent E. coli UTIs (ESBL). The computed tomography scan shows no reason for a persistent UTI, such as an infected urinary calculus. Urinary retention is common following a CVA, and impaired bladder emptying can be a predisposing factor to infection. In view of this, the postvoid residual will be checked. It would be my recommendation that the current infection be treated for a minimum of 14 days' duration with IV antibiotics, and consideration could be given to an additional course of nitrofurantoin. Time with Patient: Greater than 30
[2017-04-11 21:08] LABS: Glucose,Whole Blood 213 mg/dL (75-99)
[2017-04-11] MEDS: INSULIN GLARGINE 100 UNIT/ML 10 ML VIAL SQ SCH (22:54)
--- NOTE | 2017-04-11 23:18 | PN ---
PROGRESS NOTE SUBJECTIVE: This is a 66-year-old white female who presented with altered mental status, metabolic encephalopathy, UTI with sepsis, status post sick sinus syndrome with pacemaker placement. Patient is much improved, more alert, eating, talking. She states her vision is improved, although she is a little bit confused on the time and the date, but she is much more alert. Vital signs are stable. Afebrile. CARDIOVASCULAR: S1, S2. GI: Soft. HEMATOLOGIC: Negative Homans. PSYCH: Fair mood and affect. ASSESSMENT: 1. Urinary tract infection. 2. Metabolic encephalopathy. 3. Sick sinus syndrome, status post pacemaker. 4. Insulin-dependent diabetes mellitus. Continue current treatment, IV antibiotics, pacemaker treatment. Follow up in the next 24-48 hours. MMODL / JENNIFERN: [id number] /
[2017-04-12] MEDS: MEROPENEM 1 GM in SODIUM CHLORIDE 0.9% 100 ML IVPB SCH ×4 (00:07→23:41)
[2017-04-12 06:15] LABS: Glucose,Whole Blood 151 mg/dL (75-99)
[2017-04-12 06:24] LABS: Basophils % (A) 1 %; CH 31.7; CHCM 33.3; Eosinophils # (A) 0.2 k/uL (0-0.7); Eosinophils % (A) 3 %; HCT 35.4 % (34.0-46.0); HDW 2.72; HGB 11.8 gm/dL (11.4-16.0); Luc # (Auto) 0.16; Luc % (Auto) 3; Lymphocytes # (A) 1.8 k/uL (1.0-4.8); Lymphocytes % (A) 28 %; MCHC 33.4 g/dL (31.0-37.0); MCV 95.6 fL (80.0-100.0); Mean Platelet Volume 9.4; Monocytes # (A) 0.3 k/uL (0-1.0); Monocytes % (A) 5 %; Neutrophils # (A) 3.9 k/uL (1.3-7.7); Neutrophils % (A) 61 %; RBC 3.71 m/uL (3.80-5.40); RDW 14.3 % (11.5-15.5); WBC 6.3 k/uL (3.8-10.6); WBC (Perox) 6.79
[2017-04-12] MEDS: FAMOTIDINE 20 MG TAB PO SCH (06:44)
[2017-04-12] MEDS: METOPROLOL TARTRATE 25 MG TAB PO SCH ×2 (06:44→21:42)
[2017-04-12] MEDS: FLECAINIDE 50 MG TAB PO SCH ×2 (06:44→21:42)
[2017-04-12] MEDS: LISINOPRIL 20 MG TAB PO SCH (06:45)
[2017-04-12] MEDS: INSULIN LISPRO (humaLOG) 300 UNIT/3 ML VIAL SQ SCH ×4 (06:45→21:58)
--- NOTE | 2017-04-12 07:31 | PN ---
PROGRESS NOTE DATE OF SERVICE: 04/11/2017 REASON FOR FOLLOWUP: 1. ESBL E. coli urinary tract infection. 2. Right gluteal pressure ulcer. INTERVAL HISTORY: The patient is afebrile. She is breathing comfortably. The patient denies any chest pain, shortness of breath or cough. No abdominal pain and no diarrhea. PHYSICAL EXAMINATION: On examination, blood pressure 116/53 with a pulse of 68, temperature of 98. She is 96% on room air. General description is an elderly female, lying in bed, in no distress. RESPIRATORY SYSTEM: Unlabored breathing. Clear to auscultation anteriorly. HEART: S1, S2. Regular rate and rhythm. ABDOMEN: Soft, no tenderness. LABS: White count normal at 7.0. Blood culture remains negative. DIAGNOSTIC IMPRESSION AND PLAN: 1. Patient with ESBL Escherichia coli urinary tract infection responded to meropenem. She will get a PICC line to continue with IV Invanz with total duration of antibiotics should be 2 weeks. 2. Patient with right gluteal pressure ulcer. Continue with Aquacel silver dressing and keep the area off the pressure. MMODL / IJN: [id number] /
[2017-04-12] MEDS ORDERED: ceFAZolin 1,000 MG in DEXTROSE/WATER 1 50ML.BAG IVPB STA (08:12)
[2017-04-12] MEDS ORDERED: MIDAZOLAM 2 MG/2 ML VIAL IV ONE (09:15)
[2017-04-12] MEDS ORDERED: fentaNYL (PF) 50 MCG/ML 2 ML AMP IV ONE (09:15)
[2017-04-12] MEDS ORDERED: LIDOCAINE 2% INJ 20 MG/ML SQ ONE (09:15)
--- NOTE | 2017-04-12 09:27 | P.PCN ---
Date of Procedure: 04/12/17 Preoperative Diagnosis: History of loop recorder insertion Postoperative Diagnosis: Extraction of loop recorder Description of Procedure: Patient was brought to the lab in a fasting state. Patient was prepped and draped in the usual fashion. She was given conscious sedation with 1 mg of Versed and 50 g of fentanyl. The skin over the existing loop recorder was infiltrated with lidocaine. An incision was made in the skin. The device is pulled out of the pocket through the incision. Patient tolerated the procedure well. She states still suture was applied for hemostasis and approximation. Final impression: Extraction of loop recorder. Plan l: A she is being transferred to telemetry unit. We'll hold anticoagulation for 24 hours.
[2017-04-12] MEDS: IPRATROPIUM-ALBUTEROL 3 ML NEB INHALATION SCH ×3 (09:53→20:56)
[2017-04-12] MEDS: FUROSEMIDE 40 MG TAB PO SCH (10:11)
[2017-04-12 11:23] LABS: Glucose,Whole Blood 147 mg/dL (75-99)
--- NOTE | 2017-04-12 12:16 | PN ---
PROGRESS NOTE DATE OF SERVICE: 04/12/2017. REASON FOR FOLLOWUP VISIT: 1. ESBL E. coli urinary tract infection. 2. Right gluteal pressure ulcer. INTERVAL HISTORY: The patient is afebrile. The patient is status post removal of loop recorder today. Tolerated the procedure. No chest pain. No cough. No abdominal pain. No diarrhea. EXAMINATION: Blood pressure 127/67 with a pulse of 66. Temperature 99.3, she is 96% on room air. General description is a middle aged female, lying in bed, in no distress. RESPIRATORY SYSTEM: Unlabored breathing. Clear to auscultation anteriorly. HEART: S1, S2. Regular rate and rhythm. Abdomen soft, no tenderness. LABS: Hemoglobin 11.8, white count 6.3, blood culture remains negative. DIAGNOSTIC IMPRESSION AND PLAN: 1. The patient with ESBL E. coli urinary tract infection. The patient currently responds to meropenem that will be switched to Invanz 1 g daily at the time of discharge to finish two week course of therapy. We will get a PICC line tomorrow. 2. Patient with right gluteal pressure ulcer. Recommend Aquacel silver dressing. Keep the area off pressure. MMODL / IJN: [id number] /
[2017-04-12] MEDS: MULTIVITAMINS, THERA 1 EACH TAB PO SCH (12:41)
[2017-04-12] MEDS: SODIUM CHLORIDE 0.9% 1,000 ML IV SCH (12:47)
--- NOTE | 2017-04-12 14:20 | P.CON ---
Consult Note - . Consult date: 04/12/17 Assessment/Plan:: This consultation was performed per the request of Dr. Mcleod, sharifing elongated thick deformed dystrophic nails of both feet This patient is a 86-year-old female with a recent cerebral the patient's baseline has been stroke acting cerebellum, about 7 weeks' duration she was admitted to her [facility]. Since that time, she's been unable to eat or drink due to the stroke. A PEG tube was placed on the but she does not eat or drink due to the stroke. She tries to tries to talk and she tries defocus. She was found to have in the emergency room severe pyelonephritis at which time she was admitted with a diagnosis of sepsis due to the pyelonephritis. She was also found to have a blood sugar in the 400s and UTI with metabolic encephalopathy worsening and prior to CVA Home medications: 1. Humalog 2. Duca lacks 3. Lantus Her. Milk of magnesia 5. Tylenol 6. Eliquis 7. DuoNeb 8. Multiple vitamins 9. Prinivil 10. Lopressor ALLERGIES: NO KNOWN DRUG ALLERGIES Review of systems: 14 point review of systems is negative except for what was mentioned in the HPI Endocrine: BMI is very elevated. She does not do much ambulating. Past medical history: Atrial fibrillation, CVA, TIA, vision loss, minimal blindness in one eye on the right side diabetes mellitus, DVTs, GERD, dyslipidemia, hypertension, pneumonia, Surgical history: Appendectomy back surgery, , cholecystectomy , hernia repair, tubal ligation, right eye surgery for diabetic retinopathy, lumbar fusion, foot surgery. Social history: Former smoker. No alcohol. No illicit drugs. Past family history: Mother had cancer, diabetes mellitus. Mother is . Father youngest daughter have diabetes mellitus. Podiatric physical examination revealed palpable pedal pulses rated at equal with regard to the dorsalis pedis and the posterior tibial arteries of both feet. Capillary refill is less than 3 seconds to all digits of both feet. The patient's nails are very thick deformed elongated neglected changes consistent with onychomycosis were seen to be present involving the digits one through 5 of both feet. Babinski and clonus signs were negative bilaterally and range of motion ankle subtalar midtarsal metatarsal phalangeal joints were free and unrestricted Assessment: Atrial fibrillation with rapid ventricular response 2. Urinary tract infection with sepsis 3. Metabolic encephalopathy due to sepsis and urinary tract infection 4. Stage II decubitus ulcer on right buttock 4. Insulin-dependent diabetes mellitus and uncontrolled blood sugars 6. Hyperkalemia 7. Hyponatremia line 8. Onychomycosis toenails 1 through 5 both feet Treatment: I reduce patient's nails 1 through 5 of both feet and a septic was applied I did not hemorrhage the patient.
[2017-04-12 16:37] LABS: Glucose,Whole Blood 176 mg/dL (75-99)
[2017-04-12 20:53] LABS: Glucose,Whole Blood 143 mg/dL (75-99)
[2017-04-12] MEDS: INSULIN GLARGINE 100 UNIT/ML 10 ML VIAL SQ SCH (21:58)
[2017-04-13 05:57] LABS: Glucose,Whole Blood 240 mg/dL (75-99)
[2017-04-13 06:46] LABS: Anisocytosis Slight; Basophils % (A) 1 %; CH 32.7; CHCM 33.5; Eosinophils # (A) 0.2 k/uL (0-0.7); Eosinophils % (A) 4 %; HCT 41.3 % (34.0-46.0); HDW 2.73; HGB 13.4 gm/dL (11.4-16.0); Luc # (Auto) 0.14; Luc % (Auto) 2; Lymphocytes % (A) 33 %; MCH 31.8 pg (25.0-35.0); MCHC 32.3 g/dL (31.0-37.0); MCV 98.3 fL (80.0-100.0); Macrocytosis Slight; Mean Platelet Volume 10.3; Monocytes # (A) 0.3 k/uL (0-1.0); Monocytes % (A) 5 %; Neutrophils # (A) 3.4 k/uL (1.3-7.7); Neutrophils % (A) 56 %; RDW 16.1 % (11.5-15.5); WBC 6.2 k/uL (3.8-10.6); WBC (Perox) 5.64
[2017-04-13] MEDS: INSULIN LISPRO (humaLOG) 300 UNIT/3 ML VIAL SQ SCH ×3 (07:11→16:41)
--- NOTE | 2017-04-13 08:15 | DS ---
DISCHARGE SUMMARY DISCHARGE MEDICATIONS: 1. Tambocor 100 mg b.i.d. 2. [place] 5/325 every 4 p.r.n. 3. Nitro sublingual 0.4 mg sublingual p.r.n. 4. Pepcid 20 mg daily. 5. Lasix 40 mg daily. 6. Colace 10 mg rectal daily. 7. Lantus 20 units daily. 8. Tylenol 650 q.6 hours p.r.n. 9. Multivitamin daily. 10.Eliquis 5 mg b.i.d. 11.DuoNeb q.i.d. 12.Sodium phos enema p.r.n. rectal daily p.r.n. for constipation. 13.Lopressor 25 b.i.d. 14.Prinivil 20 daily. 15.Accu-Cheks protocol on insulin. 16.Invanz 400 mg IV q. day for 10 days. DISCHARGE DIAGNOSES: 1. Urinary tract infection. 2. Sepsis secondary to urinary tract infection. 3. Metabolic encephalopathy secondary to urinary tract infection. 4. Sick sinus syndrome. 5. Atrial fibrillation. 6. Bradycardia. 7. Pacemaker placement. 8. Insulin-dependent diabetes mellitus. 9. Decubitus ulcer stage III on the right buttock. She will have Medihoney to the right decubitus, dressing change every day. She will need alternating in bed every 2 hours. CONDITION: Stable. PROGNOSIS: Guarded. Followup Dr. Mcleod at the rehab center. For clinical course, she received IV antibiotics in the hospital for UTI with sepsis. Her white count on discharge 6.2, hemoglobin 13.4. Sugars in the mid 100s. Cardiology has given the Lopressor 25 b.i.d., has put a pacemaker in. She was treated with IV meropenem for UTI with sepsis and metabolic encephalopathy secondary to this. Eliquis was continued. Apparently flecainide has been discontinued, no it is being continued while the patient will be in the rehab center also for cardiology recommendations. IV Invanz 400 mg will be needed for 10 more days for her UTI with sepsis for recommendations per Dr. Hays. The patient is stabilized from medical standpoint and will be seen in rehab center to finish off IV antibiotics with a PICC line per Dr. Mcleod. MMODL / IJN: [id number] /
--- NOTE | 2017-04-13 08:21 | DS ---
DISCHARGE SUMMARY ADDENDUM: ESBL urinary tract infection with metabolic encephalopathy and sepsis secondary to this UTI. Medications she will need Aquacel Silver to the right gluteal sacral ulcer daily and recommending rotation in bed every 2 hours. Also with a PICC line she will need 1 g daily for 10 days through the PICC line. PICC line would need to be ordered on discharge. MMODL / IJN: [id number] /
--- NOTE | 2017-04-13 09:12 | PN ---
PROGRESS NOTE DATE OF SERVICE: 04/12/2017 SUBJECTIVE: A 66-year-old, white female, with ESBL E coli UTI, right gluteal pressure ulcer. The patient continued to do well. She has a loop recorder ordered today. Will be needed prior to discharge tomorrow. The patient will continue with IV Invanz 1 gram daily for 10 days in the [place] [facility]. She will follow up with Dr. Mcleod in the [place] [facility]. Clinically stable. She is more alert, awake, talking more. She has a stage III decubitus ulcer . On the right gluteal pressure ulcer, which will be treated with Aquacel Silver. MMODL / IJN: [id number] /
[2017-04-13] MEDS ORDERED: LIDOCAINE 2% INJ 20 MG/ML SQ ONE (09:22)
[2017-04-13] MEDS: FUROSEMIDE 40 MG TAB PO SCH (09:52)
[2017-04-13] MEDS: LISINOPRIL 20 MG TAB PO SCH (09:52)
[2017-04-13] MEDS: FAMOTIDINE 20 MG TAB PO SCH (09:53)
[2017-04-13] MEDS: SODIUM CHLORIDE 0.9% 1,000 ML IV SCH (09:53)
[2017-04-13] MEDS: METOPROLOL TARTRATE 25 MG TAB PO SCH (09:53)
--- NOTE | 2017-04-13 10:02 | IR ---
PICC LINE PLACEMENT: HISTORY: Infection requiring long-term antibiotic therapy PROCEDURE: Ultrasound and fluoroscopic guidance of PICC line placement. COMPLICATIONS: None ANESTHESIA: 1. 1% Lidocaine locally. FINDINGS/TECHNIQUE: The procedure was explained to the patient. The risks, complications, benefits and alternatives were discussed and any questions were answered. Informed consent was obtained. The patient was placed supine on the fluoroscopic table and prepped and draped in the usual sterile fas ion. Utilizing a 21 gauge needle and sonographic and fluoroscopic guidance, access in the vein was achieved and there is placement of a 0.018 guidewire. The vein is patent. A 4-F sheath was placed o seun the guidewire. The guidewire and dilator were removed and a 4-F. PICC line was placed through th e sheath with the tip at the level of the SVC. The sheath was removed, the catheter was flushed and sutured into position. The patient was stable throughout the procedure and remained stable upon disc harge from the Department of Radiology. The vein puncture was patent under ultrasound. A banegas scale image was obtained to document patency of the vein punctured. All elements of the maximal barrier technique were utilized. FLUOROSCOPY TIME: 0.5 minute, one image submitted. IMPRESSION: Successful PICC line placement under ultrasound and fluoroscopic guidance.
[2017-04-13] MEDS: MULTIVITAMINS, THERA 1 EACH TAB PO SCH (10:13)
[2017-04-13] MEDS: MEROPENEM 1 GM in SODIUM CHLORIDE 0.9% 100 ML IVPB SCH ×2 (10:13→16:39)
[2017-04-13] MEDS: FLECAINIDE 50 MG TAB PO SCH (10:36)
[2017-04-13 11:25] LABS: Glucose,Whole Blood 195 mg/dL (75-99)
[2017-04-13] MEDS: IPRATROPIUM-ALBUTEROL 3 ML NEB INHALATION SCH ×2 (11:36→13:03)
[2017-04-13 13:16] VITALS: PULSE 70
--- NOTE | 2017-04-13 15:02 | P.PN ---
Progress Note - Text Mrs. Escobar continues to be incontinent. She is afebrile. Postvoid residuals were minimal. She is being discharged home today on a two-week course of Invanz. I would be glad to see her as an outpatient should she continue to have recurrent UTIs.
[2017-04-13 15:09] VITALS: BMI 40.2
[2017-04-13 16:38] LABS: Glucose,Whole Blood 262 mg/dL (75-99)
[2017-04-13 16:48] VITALS: BP 102/50; RESP 20; TEMP 98
--- NOTE | 2017-04-13 19:00 | PN ---
PROGRESS NOTE DATE OF SERVICE: 04/13/2017 REASON FOR FOLLOWUP: 1. ESBL E coli urinary tract infection. 2. Patient with a right gluteal pressure ulcer. INTERVAL HISTORY: The patient was seen late this afternoon. The patient has been afebrile. She has been breathing comfortably. No nausea, vomiting or any diarrhea. PHYSICAL EXAMINATION: Blood pressure is 102/50 with a pulse of 70, temperature of 98. She is 94% on room air. General description is an elderly female lying in bed in no distress. RESPIRATORY SYSTEM: Unlabored breathing. Clear to auscultation anteriorly. HEART: S1, S2. Regular rate and rhythm. ABDOMEN: Soft. No tenderness. LABS: Hemoglobin is 13.4, white count 6.2. Blood culture has been negative. DIAGNOSTIC IMPRESSION/PLAN: 1. Patient with ESBL Escherichia coli urinary tract infection, admitted to hospital with sepsis, currently responding to Meropenem. That will be switched to Invanz 1 gram daily for another 12 days to finish a course of therapy. 2. Patient with right gluteal pressure ulcer, stage III. Local wound care with Aquacel Silver and followup in the office next week. MMODL / IJN: [id number] /
== END 2017-04-13 19:35 | DRG 871 ==
LOC: EC 22:03 → 6SEL 04-07 00:14
PROVIDERS: ADMIT Family Medicine; ATTEND Family Medicine
PROC: 02HK3JZ Insertion of Pacemaker Lead into Right Ventricle, Percutaneous Approach (ICD-10-PCS; 2017-04-10)
PROC: 02H63JZ Insertion of Pacemaker Lead into Right Atrium, Percutaneous Approach (ICD-10-PCS; 2017-04-10)
PROC: 0JH606Z Insertion of Pacemaker, Dual Chamber into Chest Subcutaneous Tissue and Fascia, Open Approach (ICD-10-PCS; principal; 2017-04-10 07:40)
PROC: 0JPT02Z Removal of Monitoring Device from Trunk Subcutaneous Tissue and Fascia, Open Approach (ICD-10-PCS; 2017-04-12)
PROC: 02HV33Z Insertion of Infusion Device into Superior Vena Cava, Percutaneous Approach (ICD-10-PCS; 2017-04-13)
PROC: B548ZZA Ultrasonography of Superior Vena Cava, Guidance (ICD-10-PCS; 2017-04-13)
PROC: B518ZZA Fluoroscopy of Superior Vena Cava, Guidance (ICD-10-PCS; 2017-04-13)
DX: A41.9 Sepsis, unspecified organism (principal); G93.41 Metabolic encephalopathy; L89.313 Pressure ulcer of right buttock, stage 3; I69.351 Hemiplegia and hemiparesis following cerebral infarction affecting right dominant side; L97.919 Non-pressure chronic ulcer of unspecified part of right lower leg with unspecified severity; Z68.41 Body mass index [BMI] 40.0-44.9, adult; N12 Tubulo-interstitial nephritis, not specified as acute or chronic; E66.9 Obesity, unspecified; I48.0 Paroxysmal atrial fibrillation; E11.622 Type 2 diabetes mellitus with other skin ulcer; I49.5 Sick sinus syndrome; E11.65 Type 2 diabetes mellitus with hyperglycemia; R13.10 Dysphagia, unspecified; E11.319 Type 2 diabetes mellitus with unspecified diabetic retinopathy without macular edema; N28.1 Cyst of kidney, acquired; E87.5 Hyperkalemia; H54.0 Blindness, both eyes; I69.398 Other sequelae of cerebral infarction; I10 Essential (primary) hypertension; B35.1 Tinea unguium; E78.5 Hyperlipidemia, unspecified; B96.20 Unspecified Escherichia coli [E. coli] as the cause of diseases classified elsewhere; K21.9 Gastro-esophageal reflux disease without esophagitis; Z79.01 Long term (current) use of anticoagulants; Z79.4 Long term (current) use of insulin; Z79.899 Other long term (current) drug therapy; Z87.891 Personal history of nicotine dependence; Z16.24 Resistance to multiple antibiotics; Z16.12 Extended spectrum beta lactamase (ESBL) resistance; Z87.440 Personal history of urinary (tract) infections; Z86.718 Personal history of other venous thrombosis and embolism
CPT/HCPCS: 33208; 33284; 36415; 36569; 71010; 71020; 76937; 77001; 80048; 80053; 80061; 81001; 82550; 82553; 83605; 83735; 84484; 85025; 85027; 85610; 85730; 87040; 87077; 87086; 87186; 94640; 94760; 96365; 96366; 99285

== ENCOUNTER 2017-05-06 02:56 | Emergency (ER) | payer MEDICARE ==
--- NOTE | 2017-05-06 03:23 | ED ---
General Adult HPI - General Chief complaint: Recheck/Abnormal Lab/Rx Stated complaint: Peg Tube Replacement Time Seen by Provider: 05/06/17 03:04 Source: patient, RN notes reviewed, old records reviewed Mode of arrival: EMS Limitations: no limitations - History of Present Illness Initial comments: This is a 66-year-old female to the ER for evaluation of possible PEG tube replacement remiss dysfunction. Difficult flushing PEG tube thinks it may be out of place. Patient PEG tube placed here by GI around 6 weeks ago. Patient herself is a poor historian history obtained from EMS as well as patient's report from facility - Related Data Home Medications Medication Instructions Recorded Confirmed Bisacodyl [Dulcolax] 10 mg RECTAL DAILY PRN 03/02/17 05/06/17 Insulin Glargine [Lantus] 40 unit SQ HS 03/02/17 05/06/17 Magnesium Hydroxide [Milk of 2,400 mg PO DAILY PRN 03/02/17 05/06/17 Magnesia] Acetaminophen Tab [Tylenol] 650 mg PO Q6HR PRN 03/23/17 05/06/17 Apixaban [Eliquis] 5 mg PO BID 03/23/17 05/06/17 Ipratropium-Albuterol Nebulize 3 ml INHALATION RT-TID 03/23/17 05/06/17 [Duoneb 0.5 mg-3 mg/3 ml Soln] Multivitamins, Thera [Multivitamin 1 tab PO DAILY 03/23/17 05/06/17 (formulary)] Lisinopril [Prinivil] 20 mg PO DAILY 04/06/17 05/06/17 Metoprolol Tartrate [Lopressor] 25 mg PO BID 04/06/17 05/06/17 Ertapenem [INVanz] 1 gm IVPB DAILY@0800 05/06/17 05/06/17 Hydrocortisone Cream 1 applic TOPICAL BID PRN 05/06/17 05/06/17 [Hydrocortisone 1% Cream] INSULIN LISPRO (humaLOG) [humaLOG See Protocol SQ ACHS 05/06/17 05/06/17 (formulary)] Uti-Stat Liquid 30 ml PO DAILY 05/06/17 05/06/17 Previous Rx's Medication Instructions Recorded Famotidine [Pepcid] 20 mg PO DAILY tab 02/24/17 Furosemide [Lasix] 40 mg PO DAILY tab 02/24/17 Flecainide [Tambocor] 100 mg PO Q12HR tab 04/13/17 Nitroglycerin Sl Tabs [Nitrostat] 0.4 mg SUBLINGUAL Q5M PRN tab 04/13/17 HYDROcodone/APAP 5-325MG [[place] 1 tab PO Q4HR PRN #10 05/08/17 5-325] Allergies Allergy/AdvReac Type Severity Reaction Status Date / Time No Known Allergies Allergy Verified 05/06/17 12:42 Review of Systems ROS Statement: Those systems with pertinent positive or pertinent negative responses have been documented in the HPI. ROS Other: All systems not noted in ROS Statement are negative. Past Medical History Past Medical History: Atrial Fibrillation, CVA/TIA, Diabetes Mellitus, Deep Vein Thrombosis (DVT), Eye Disorder, GERD/Reflux, Hyperlipidemia, Hypertension, Pneumonia Additional Past Medical History / Comment(s): HOSPITALIZED 03/02-03/08/17 FOR LETHARGY,UTI WITH METABOLIC ENCEPHALOPATHY. , HX OF CVA WITH RIGHT SIDED WEAKNESS , DECUBITUS ULCERS ON BUTTOCKS. (HX OF HEEL ULCERS ALSO) ,JUDSON LIFT USED TO MOVE TO WHEELCHAIR.,INCONTINENT., NURSE STATES NOT EATING -TAKES VERY SMALL AMTS AND NEEDS TO BE FED. , HAS LOOP RECORDER., OXYGEN AT 4 LITERS. , STATES PT WILL ANSWER YES OR NO BUT UNSURE IF SHE COMPREHENDS., HX OF UTI'S. 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 History of Any Multi-Drug Resistant Organisms: ESBL Date of last positivie culture/infection: 04/06/17 MDRO Source:: Urine Past Surgical History: Appendectomy, Back Surgery, Section, Cholecystectomy, Hernia Repair, Tubal Ligation Additional Past Surgical History / Comment(s): RT EYE SURG for diabetic retinopathy, lumbar fusion, PAPO FOOT SPUR SURG. Picc insertion.nereida, loop recorder Past Anesthesia/Blood Transfusion Reactions: No Reported Reaction Past Psychological History: No Psychological Hx Reported Smoking Status: Former smoker Past Alcohol Use History: None Reported Past Drug Use History: None Reported - Past Family History Mother Family Medical History: Cancer, Diabetes Mellitus Additional Family Medical History / Comment(s): mother is . Father History Unknown: Yes Daughter(s) Family Medical History: Diabetes Mellitus General Exam Limitations: no limitations General appearance: alert, in no apparent distress Head exam: Present: atraumatic, normocephalic, normal inspection Eye exam: Present: normal appearance, PERRL, EOMI. Absent: scleral icterus, conjunctival injection, periorbital swelling ENT exam: Present: normal exam, mucous membranes moist Neck exam: Present: normal inspection. Absent: tenderness, meningismus, lymphadenopathy Respiratory exam: Present: normal lung sounds bilaterally. Absent: respiratory distress, wheezes, rales, rhonchi, stridor Cardiovascular Exam: Present: regular rate, normal rhythm, normal heart sounds. Absent: systolic murmur, diastolic murmur, rubs, gallop, clicks GI/Abdominal exam: Present: soft, normal bowel sounds. Absent: distended, tenderness, guarding, rebound, rigid Extremities exam: Present: normal inspection, full ROM, normal capillary refill. Absent: tenderness, pedal edema, joint swelling, calf tenderness Back exam: Present: normal inspection Neurological exam: Present: alert, oriented X3, CN II-XII intact Psychiatric exam: Present: normal affect, normal mood Skin exam: Present: warm, dry, intact, normal color. Absent: rash Course Vital Signs 05/06/17 05/06/17 02:57 05:21 Temperature 97.3 F L 96.9 F L Pulse Rate 86 68 Respiratory 18 16 Rate Blood Pressure 120/67 111/64 O2 Sat by Pulse 96 94 L Oximetry - Reevaluation(s) Reevaluation #1: 05/06/17 03:[address] Davies re issue, suggest to get PegOgram Medical Decision Making - Medical Decision Making 66 female the ER for evaluation of PEG tube evaluation, patient has good placement of patent confirmed on x-ray, patient can be discharged back to facility - Radiology Data Radiology results: report reviewed (X-ray KUB shows good placement of PEG tube) , image reviewed Disposition Clinical Impression: PEG tube malfunction, Leaking PEG tube Disposition: HOME SELF-CARE Condition: Good Instructions: Percutaneous Endoscopic Gastrostomy (ED) Referrals: Orion Martinez DO [Primary Care Provider] - 1-2 days
--- NOTE | 2017-05-06 04:24 | XR ---
EXAM: XR Abdomen, 1 View CLINICAL HISTORY: Reason: Pain TECHNIQUE: Frontal supine view of the abdomen/pelvis. Oral contrast was instilled through a percutaneous gastrostomy tube. COMPARISON: 02/16/17 FINDINGS: Gastrointestinal tract: Unremarkable. No dilation. Bones/joints: Posterior fusion hardware of the lower lumbar spine. Tubes, lines and devices: Contrast is seen within the lumen of the stomach suggestive appropriate position of the gastrostomy tube. IMPRESSION: Contrast is seen within the lumen of the stomach suggestive appropriate position of the gastrostomy tube.
[2017-05-06 05:22] VITALS: BP 111/64; PULSE 68; RESP 16; TEMP 96.9
--- NOTE | 2017-05-08 06:08 | CDI ---
Documentation Clarification OP Dear Nam SALEEM DO, Please add addendum for HPI, Physical examination and MDM. Thank you, casie. Garment Inspector. If you have any questions please contact manager distribution at [phone] [facility]
== END 2017-05-06 05:41 | disposition home or self-care (01) ==
LOC: EC 02:56 → SUPCPDRO 02:56 → EC 05:41
DX: K94.23 Gastrostomy malfunction (principal); I48.91 Unspecified atrial fibrillation; E11.9 Type 2 diabetes mellitus without complications; I10 Essential (primary) hypertension; Z86.73 Personal history of transient ischemic attack (TIA), and cerebral infarction without residual deficits; Z90.49 Acquired absence of other specified parts of digestive tract; Z87.891 Personal history of nicotine dependence; Z79.4 Long term (current) use of insulin; Z79.51 Long term (current) use of inhaled steroids; Z79.01 Long term (current) use of anticoagulants; Z79.899 Other long term (current) drug therapy
CPT/HCPCS: 99284; 43760; 74000; Q9967

== ENCOUNTER 2018-07-30 07:43 | Day surgery (SDC) | payer MEDICARE, OTHER ==
[2018-07-26 11:54] VITALS: BMI 43.6
[~2018-07-30 07:43] MED LIST changes: -LIDOCAINE 1% 20 ML VIAL (10MG/ML) FOR IV START INTRADERMA PRN
[2018-07-30 08:37] VITALS: TEMP 98.6
[2018-07-30 08:46] LABS: Glucose,Whole Blood 129 mg/dL (75-99)
[2018-07-30] MEDS ORDERED: GLYCOPYRROLATE 0.2 MG/ML 2 ML VIAL ONE (09:09)
[2018-07-30] MEDS ORDERED: KETAMINE 10 MG/ML 20 ML VIAL ONE (09:09)
[2018-07-30] MEDS ORDERED: PROPOFOL 10 MG/ML 20 ML VIAL IV ONE (09:09)
--- NOTE | 2018-07-30 09:56 | P.PCN ---
Date of Procedure: 07/30/18 Procedure(s) Performed: Procedure: Esophagogastroduodenoscopy and replacement of gastrostomy feeding tube. Preoperative diagnosis: Feeding tube malfunction. Postoperative diagnosis: 1. Successful replacement of a gastrostomy feeding tube using the Bard tri-funnel 20-Bahamian balloon replacement gastrostomy feeding tube. 2. Upper endoscopy revealed the new tube in place with no obvious abnormalities. Preparation and sedation: Was provided by anesthesia. Brief clinical history: The patient is a 67-year-old female with history of CVA and gastrostomy feeding tube placement last performed in April 2017, is scheduled for this evaluation because of problems with the tube and breakage of the tube and frequent clogging. Procedure: With the patient in the supine position and after informed consent and adequate sedation, the current tube was removed with gentle traction and came out intact. I used the tract to advance the Bard 20-Bahamian balloon replacement tri-funnel gastrostomy feeding tube and inflated the balloon with a total of 20 mL of sterile water. The Olympus-GIF 190 video upper endoscope was used to confirm the adequate placement of the tube and was passed through the cricopharyngeus down the esophagus into the stomach and through the pylorus into the duodenum. No obvious abnormalities were noted. The new feeding tube appeared in place. No biopsies or other interventions were indicated. The patient tolerated the procedure well. Plan: The patient and the caregivers were reassured and they can start using the tube for feeding when she gets back to [facility] today.
[2018-07-30 10:06] VITALS: RESP 16
[2018-07-30 11:14] VITALS: BP 137/83; PULSE 67
== END 2018-07-30 11:10 ==
LOC: ORWHC2ENDO 07:43
DX: K94.23 Gastrostomy malfunction (principal); Z79.01 Long term (current) use of anticoagulants; I48.91 Unspecified atrial fibrillation; Z86.73 Personal history of transient ischemic attack (TIA), and cerebral infarction without residual deficits; Z86.718 Personal history of other venous thrombosis and embolism; K21.9 Gastro-esophageal reflux disease without esophagitis; I10 Essential (primary) hypertension; E78.5 Hyperlipidemia, unspecified; I25.10 Atherosclerotic heart disease of native coronary artery without angina pectoris; E78.49 Other hyperlipidemia; E11.9 Type 2 diabetes mellitus without complications; Z79.4 Long term (current) use of insulin; Z79.891 Long term (current) use of opiate analgesic; Z79.899 Other long term (current) drug therapy
CPT/HCPCS: 43246; J2704

== ENCOUNTER 2019-08-14 22:15 | Emergency (ER) | payer MEDICARE, OTHER ==
[2019-08-14 22:40] VITALS: BP 142/71; PULSE 69; RESP 16; TEMP 98.1
--- NOTE | 2019-08-14 23:32 | ED ---
General Adult HPI - General Chief complaint: Recheck/Abnormal Lab/Rx Stated complaint: Peg Tube Issue Time Seen by Provider: 08/14/19 22:15 Source: EMS, RN notes reviewed, old records reviewed Mode of arrival: EMS Limitations: language barrier, altered mental status, physical limitation - History of Present Illness Initial comments: This is a 68-year-old female who is from [facility]way and has a PEG tube is brought in today by paramedics due to a PEG tube that was knocked loose. No reports of nausea vomiting fevers chills sweats or other symptoms. A Epstein catheter was temporarily placed in the site. - Related Data Home Medications Medication Instructions Recorded Confirmed Bisacodyl [Dulcolax] 10 mg RECTAL DAILY PRN 03/02/17 07/26/18 Magnesium Hydroxide [Milk of 30 ml PEG/G-TUBE DAILY PRN 03/02/17 07/26/18 Magnesia] Acetaminophen Tab [Tylenol] 650 mg PEG/G-TUBE Q6HR PRN 03/23/17 07/26/18 Apixaban [Eliquis] 5 mg PEG/G-TUBE BID 03/23/17 07/30/18 Ipratropium-Albuterol Nebulize 3 ml INHALATION BID 03/23/17 07/26/18 [Duoneb 0.5 mg-3 mg/3 ml Soln] Lisinopril [Prinivil] 20 mg PEG/G-TUBE DAILY 04/06/17 07/30/18 Cholecalciferol [Vitamin D3] 3,000 unit PO HS 07/26/18 07/26/18 Famotidine [Pepcid] 20 mg PEG/G-TUBE DAILY 07/26/18 07/30/18 Furosemide [Lasix] 20 mg PEG/G-TUBE DAILY 07/26/18 07/30/18 Glimepiride [Amaryl] 2 mg PEG/G-TUBE AC-BRKFST 07/26/18 07/30/18 HYDROcodone/APAP 5-325MG [[place] 1 tab PEG/G-TUBE Q4HR PRN 07/26/18 07/26/18 5-325] Insulin Detemir (Levemir) [Levemir] 46 unit SQ HS 07/26/18 07/30/18 Loperamide HCl [Loperamide] 15 ml PEG/G-TUBE Q2H PRN 07/26/18 07/26/18 Metoprolol Tartrate [Lopressor] 50 mg PEG/G-TUBE BID 07/26/18 07/30/18 Simvastatin [Zocor] 10 mg PEG/G-TUBE HS 07/26/18 07/30/18 metFORMIN HCL 1,000 mg PEG/G-TUBE BID 07/26/18 07/30/18 Previous Rx's Medication Instructions Recorded Nitroglycerin Sl Tabs [Nitrostat] 0.4 mg SUBLINGUAL Q5M PRN tab 04/13/17 Allergies Allergy/AdvReac Type Severity Reaction Status Date / Time No Known Allergies Allergy Verified 07/30/18 08:19 Review of Systems ROS Statement: Those systems with pertinent positive or pertinent negative responses have been documented in the HPI. Limitations: ROS unobtainable due to patients medical condition Past Medical History Past Medical History: Atrial Fibrillation, CVA/TIA, Diabetes Mellitus, Deep Vein Thrombosis (DVT), Eye Disorder, GERD/Reflux, Hyperlipidemia, Hypertension, Pneumonia Additional Past Medical History / Comment(s): HOSPITALIZED 03/02-03/08/17 FOR LETHARGY,UTI WITH METABOLIC ENCEPHALOPATHY. , HX OF CVA WITH RIGHT SIDED WEAKNESS ,PAST HX OF DECUBITUS ULCERS ON COCCYX & HEELS ,JUDSON LIFT USED TO MOVE TO WHEELCHAIR.,INCONTINENT., , STATES PT WILL ANSWER YES OR NO -SIMPLE QUESTIONS BUT UNSURE IF SHE COMPREHENDS., HX OF UTI'S. , BLIND RIGHT EYE, POOR VISION LEFT EYE., DIABETIC RETINOPATHY, HX OF SSS WITH PACEMAKER., PATIENT HAS GASTRIC PEG TUBE FOR FEEDINGS WHICH HAS BROKEN OFF AND HAS A SHORT TUBE. History of Any Multi-Drug Resistant Organisms: ESBL Date of last positivie culture/infection: 04/06/17 MDRO Source:: Urine Past Surgical History: Appendectomy, Back Surgery, Section, Cholecystectomy, Hernia Repair, Pacemaker, Tubal Ligation Additional Past Surgical History / Comment(s): RT EYE SURG for diabetic retinopathy, lumbar fusion, PAPO FOOT SPUR SURG. Picc insertion. Past Anesthesia/Blood Transfusion Reactions: No Reported Reaction Type of Cardiac Device: Permanent Pacemaker Device Placement Date:: march 2017 Past Psychological History: No Psychological Hx Reported Smoking Status: Former smoker Past Alcohol Use History: None Reported Past Drug Use History: None Reported - Past Family History Mother Family Medical History: Cancer, Diabetes Mellitus Additional Family Medical History / Comment(s): mother is . Father History Unknown: Yes Daughter(s) Family Medical History: Diabetes Mellitus General Exam - General Exam Comments Initial Comments: This a well-developed well-nourished awake female who is unresponsive to verbal Limitations: language barrier, altered mental status, physical limitation General appearance: in no apparent distress Head exam: Present: atraumatic, normocephalic, normal inspection Eye exam: Present: normal appearance, PERRL, EOMI. Absent: scleral icterus, conjunctival injection, periorbital swelling ENT exam: Present: normal exam, mucous membranes moist Neck exam: Present: normal inspection. Absent: tenderness, meningismus, lymphadenopathy Respiratory exam: Present: normal lung sounds bilaterally. Absent: respiratory distress, wheezes, rales, rhonchi, stridor Cardiovascular Exam: Present: regular rate, normal rhythm, normal heart sounds. Absent: systolic murmur, diastolic murmur, rubs, gallop, clicks GI/Abdominal exam: Present: soft, other (PEG tube site demonstrates no evidence of any excoriation bleeding or discharge and 18-Hungarian Epstein catheter is in place at this time) Back exam: Present: normal inspection Psychiatric exam: Present: flat affect Skin exam: Present: warm, dry, intact, normal color. Absent: rash Course Vital Signs 08/14/19 22:37 Temperature 98.1 F Pulse Rate 69 Respiratory 16 Rate Blood Pressure 142/71 O2 Sat by Pulse 97 Oximetry Procedures - Feeding Tube Replacement Reason for Replacement: fell out Type of Tube: gastrostomy Use of Tube: medications and feeding Insertion Site Prior to Procedure: clean Tube Used for Reinsertion: other ( Halyard Bolus gastrostomy feeding tube #18-Hungarian) Hungarian Tube Size (F): 18 Balloon Size (mls): 8 Verification of Placement: auscultation Tube Secured by: G-tube attachment device Patient Tolerated Procedure: well Additional Comments: I was able to replace the feeding tube without difficulty after removal of the Epstein catheter. Patient tolerated this well. I did insufflate air and could appreciate gastric bubbling via auscultation. Medical Decision Making - Medical Decision Making Patient did have her feeding tube replaced by me in the emergency department. Disposition Clinical Impression: Dislodged gastrostomy tube, History of gastrostomy tube placement, Status post insertion of percutaneous endoscopic gastrostomy (PEG) tube Disposition: HOME SELF-CARE Condition: Good Instructions (If sedation given, give patient instructions): How to Use and Care for Your PEG Tube (ED), PEG Tube Insertion (DC) Additional Instructions: Okay to resume using PEG tube Is patient prescribed a controlled substance at d/c from ED?: No Referrals: Orion Martinez DO [Primary Care Provider] - 1-2 days
== END 2019-08-15 01:12 | disposition home or self-care (01) ==
LOC: EC 22:15
DX: Z43.1 Encounter for attention to gastrostomy (principal); R41.82 Altered mental status, unspecified; I48.91 Unspecified atrial fibrillation; K21.9 Gastro-esophageal reflux disease without esophagitis; E78.5 Hyperlipidemia, unspecified; I10 Essential (primary) hypertension; E11.319 Type 2 diabetes mellitus with unspecified diabetic retinopathy without macular edema; H54.115 Blindness right eye category 5, low vision left eye; Z87.891 Personal history of nicotine dependence; Z79.01 Long term (current) use of anticoagulants; Z79.4 Long term (current) use of insulin; Z79.891 Long term (current) use of opiate analgesic; Z79.899 Other long term (current) drug therapy; Z86.73 Personal history of transient ischemic attack (TIA), and cerebral infarction without residual deficits; Z86.718 Personal history of other venous thrombosis and embolism; Z86.79 Personal history of other diseases of the circulatory system; Z95.0 Presence of cardiac pacemaker
CPT/HCPCS: 43762; 99283

== ENCOUNTER 2020-06-02 23:10 | Emergency (ER) | payer MEDICARE, OTHER ==
--- NOTE | 2020-06-03 00:27 | XR ---
EXAM: XR Abdomen, 1 View CLINICAL HISTORY: ITS.REASON XR Reason: peg tube TECHNIQUE: Frontal supine view of the abdomen/pelvis. COMPARISON: No relevant prior studies available. FINDINGS: Bones/joints: Postoperative changes of the spine at the lumbosacral junction. No acute osseous findings. Tubes, lines and devices: Percutaneous gastrostomy tube is in place. Administered oral contrast fills the gastric lumen and extends into the duodenum. No evidence of contrast extravasation from bowel. IMPRESSION: Percutaneous gastrostomy tube in place.
--- NOTE | 2020-06-03 00:29 | ED ---
General Adult HPI - General Source: RN notes reviewed <Darin Zhang - Last Filed: 06/03/20 00:46> <Hair Gardner - Last Filed: 06/05/20 10:53> - General Stated complaint: feeding tube issues Time Seen by Provider: 06/02/20 23:20 - History of Present Illness Initial comments: 69-year-old female with a complicated past medical history presents to the emergency room for a chief complaint of PEG tube issue. Patient is at baseline mentation at this time secondary to a stroke. Patient is staying at a senior care. PEG tube came out today. Patient has had PEG tube for years according to EMS. No other complaints from senior care at this time.Patient has no other complaints at this time including shortness of breath, chest pain, abdominal pain, nausea or vomiting, headache, or visual changes. (Darin Zhang) - Related Data Home Medications Medication Instructions Recorded Confirmed Magnesium Hydroxide [Milk of 30 ml PEG/G-TUBE DAILY PRN 03/02/17 07/26/18 Magnesia] bisacodyL [Dulcolax] 10 mg RECTAL DAILY PRN 03/02/17 07/26/18 Acetaminophen Tab [Tylenol] 650 mg PEG/G-TUBE Q6HR PRN 03/23/17 07/26/18 Apixaban [Eliquis] 5 mg PEG/G-TUBE BID 03/23/17 07/30/18 Ipratropium-Albuterol Nebulize 3 ml INHALATION BID 03/23/17 07/26/18 [Duoneb 0.5 mg-3 mg/3 ml Soln] lisinopriL [Prinivil] 20 mg PEG/G-TUBE DAILY 04/06/17 07/30/18 Cholecalciferol [Vitamin D3] 3,000 unit PO HS 07/26/18 07/26/18 Famotidine [Pepcid] 20 mg PEG/G-TUBE DAILY 07/26/18 07/30/18 Furosemide [Lasix] 20 mg PEG/G-TUBE DAILY 07/26/18 07/30/18 Glimepiride [Amaryl] 2 mg PEG/G-TUBE AC-BRKFST 07/26/18 07/30/18 HYDROcodone/APAP 5-325MG [[place] 1 tab PEG/G-TUBE Q4HR PRN 07/26/18 07/26/18 5-325] Insulin Detemir (Levemir) [Levemir] 46 unit SQ HS 07/26/18 07/30/18 Loperamide HCl [Loperamide] 15 ml PEG/G-TUBE Q2H PRN 07/26/18 07/26/18 Metoprolol Tartrate [Lopressor] 50 mg PEG/G-TUBE BID 07/26/18 07/30/18 Simvastatin [Zocor] 10 mg PEG/G-TUBE HS 07/26/18 07/30/18 metFORMIN HCL 1,000 mg PEG/G-TUBE BID 07/26/18 07/30/18 Previous Rx's Medication Instructions Recorded Nitroglycerin Sl Tabs [Nitrostat] 0.4 mg SUBLINGUAL Q5M PRN tab 04/13/17 Allergies Allergy/AdvReac Type Severity Reaction Status Date / Time No Known Allergies Allergy Verified 07/30/18 08:19 Review of Systems ROS Other: All systems not noted in ROS Statement are negative. <Darin Zhang - Last Filed: 06/03/20 00:46> ROS Other: All systems not noted in ROS Statement are negative. <Hair Gardner - Last Filed: 06/05/20 10:53> ROS Statement: Those systems with pertinent positive or pertinent negative responses have been documented in the HPI. Past Medical History Past Medical History: Atrial Fibrillation, CVA/TIA, Diabetes Mellitus, Deep Vein Thrombosis (DVT), Eye Disorder, GERD/Reflux, Hyperlipidemia, Hypertension, Pneumonia Additional Past Medical History / Comment(s): HOSPITALIZED 03/02-03/08/17 FOR LETHARGY,UTI WITH METABOLIC ENCEPHALOPATHY. , HX OF CVA WITH RIGHT SIDED WEAKNESS ,PAST HX OF DECUBITUS ULCERS ON COCCYX & HEELS ,JUDSON LIFT USED TO MOVE TO WHEELCHAIR.,INCONTINENT., , STATES PT WILL ANSWER YES OR NO -SIMPLE QUESTIONS BUT UNSURE IF SHE COMPREHENDS., HX OF UTI'S. , BLIND RIGHT EYE, POOR VISION LEFT EYE., DIABETIC RETINOPATHY, HX OF SSS WITH PACEMAKER., PATIENT HAS GASTRIC PEG TUBE FOR FEEDINGS WHICH HAS BROKEN OFF AND HAS A SHORT TUBE. History of Any Multi-Drug Resistant Organisms: ESBL Date of last positivie culture/infection: 04/06/17 MDRO Source:: Urine Past Surgical History: Appendectomy, Back Surgery, Section, Cholecystectomy, Hernia Repair, Pacemaker, Tubal Ligation Additional Past Surgical History / Comment(s): RT EYE SURG for diabetic retinopathy, lumbar fusion, PAPO FOOT SPUR SURG. Picc insertion. Past Anesthesia/Blood Transfusion Reactions: No Reported Reaction Type of Cardiac Device: Permanent Pacemaker Device Placement Date:: march 2017 Past Psychological History: No Psychological Hx Reported Past Alcohol Use History: None Reported Past Drug Use History: None Reported - Past Family History Mother Family Medical History: Cancer, Diabetes Mellitus Additional Family Medical History / Comment(s): mother is . Father History Unknown: Yes Daughter(s) Family Medical History: Diabetes Mellitus <Darin Zhang - Last Filed: 06/03/20 00:46> General Exam General appearance: alert, in no apparent distress Head exam: Present: atraumatic, normocephalic, normal inspection Eye exam: Present: normal appearance, PERRL, EOMI. Absent: scleral icterus, conjunctival injection, periorbital swelling ENT exam: Present: normal exam, mucous membranes moist Neck exam: Present: normal inspection, full ROM. Absent: tenderness, meningism us, lymphadenopathy Respiratory exam: Present: normal lung sounds bilaterally. Absent: respiratory distress, wheezes, rales, rhonchi, stridor Cardiovascular Exam: Present: regular rate, normal rhythm, normal heart sounds. Absent: systolic murmur, diastolic murmur, rubs, gallop, clicks GI/Abdominal exam: Present: soft, normal bowel sounds, other (No signs of infection around site.). Absent: distended, tenderness, guarding, rebound, rigid <Darin Zhang - Last Filed: 06/03/20 00:46> Course Vital Signs 06/03/20 06/03/20 06/03/20 00:31 01:29 02:46 Temperature 97.5 F L 97.5 F L Pulse Rate 61 68 68 Respiratory 20 18 18 Rate Blood Pressure 128/60 174/89 174/89 O2 Sat by Pulse 100 98 98 Oximetry Medical Decision Making <Darin Zhang - Last Filed: 06/03/20 00:46> <Hair Gardner - Last Filed: 06/05/20 10:53> - Medical Decision Making 14-Comoran PEG tube was placed by Dr Gardner after inability to place a 20-Comoran and 16-Comoran. Pegogram was obtained which was normal. Percutaneous gastrostomy tube in place.Patient can be discharged bck to senior care. (Darin Zhang) I saw this patient in conjunction with the physician service center assistant. I performed independent history and physical exam. Agree with case management. I did attempt to place the PEG tube that was 16-Comoran, and it would not pass due to stricture. Changed over to 14-Comoran PEG tube which passed without difficulty. No [place] patient. (Hair Gardner) Disposition Is patient prescribed a controlled substance at d/c from ED?: No Time of Disposition: 00:51 <Darin Zhang - Last Filed: 06/03/20 00:46> <Hair Gardner - Last Filed: 06/05/20 10:53> Clinical Impression: PEG tube malfunction Narrative: peg tube replaced (Darin Zhang) Disposition: HOME SELF-CARE Condition: Good Instructions (If sedation given, give patient instructions): Percutaneous Endoscopic Gastrostomy (ED) Referrals: Orion Martinez DO [Primary Care Provider] - 1-2 days
[2020-06-03 00:35] VITALS: TEMP 97.5
[2020-06-03 01:31] VITALS: BP 174/89; PULSE 68; RESP 18
== END 2020-06-03 02:48 | disposition home or self-care (01) ==
LOC: EC 23:10
DX: K94.23 Gastrostomy malfunction (principal); I10 Essential (primary) hypertension; E11.319 Type 2 diabetes mellitus with unspecified diabetic retinopathy without macular edema; K21.9 Gastro-esophageal reflux disease without esophagitis; E78.5 Hyperlipidemia, unspecified; H54.3 Unqualified visual loss, both eyes; Z79.01 Long term (current) use of anticoagulants; Z79.4 Long term (current) use of insulin; Z79.899 Other long term (current) drug therapy; Z86.718 Personal history of other venous thrombosis and embolism; Z86.73 Personal history of transient ischemic attack (TIA), and cerebral infarction without residual deficits; Z90.49 Acquired absence of other specified parts of digestive tract
CPT/HCPCS: 74018; 99283; 43762; Q9967

== ENCOUNTER 2020-06-07 21:17 | Emergency (ER) | payer MEDICARE, OTHER ==
[2020-06-07 21:40] VITALS: RESP 20
--- NOTE | 2020-06-07 23:07 | ED ---
Recheck HPI - General Chief Complaint: Recheck/Abnormal Lab/Rx Stated Complaint: Peg tube issues Time Seen by Provider: 06/07/20 21:30 Source: patient Mode of arrival: ambulatory Limitations: no limitations - History of Present Illness Initial Comments: 69-year-old female patient with past medical history significant for CVA with severe cognitive deficits. She is nonverbal and requires PEG tube for feedings. Upon arrival patient is at her baseline mentation not responding to questions. Patient accidentally removed the PEG tube during movement. This is the second time in the last several days, it was replaced last time with a 14fr. ECF reports no further issues or symptoms. - Related Data Home Medications Medication Instructions Recorded Confirmed Magnesium Hydroxide [Milk of 30 ml PEG/G-TUBE DAILY PRN 03/02/17 07/26/18 Magnesia] bisacodyL [Dulcolax] 10 mg RECTAL DAILY PRN 03/02/17 07/26/18 Acetaminophen Tab [Tylenol] 650 mg PEG/G-TUBE Q6HR PRN 03/23/17 07/26/18 Apixaban [Eliquis] 5 mg PEG/G-TUBE BID 03/23/17 07/30/18 Ipratropium-Albuterol Nebulize 3 ml INHALATION BID 03/23/17 07/26/18 [Duoneb 0.5 mg-3 mg/3 ml Soln] lisinopriL [Prinivil] 20 mg PEG/G-TUBE DAILY 04/06/17 07/30/18 Cholecalciferol [Vitamin D3] 3,000 unit PO HS 07/26/18 07/26/18 Famotidine [Pepcid] 20 mg PEG/G-TUBE DAILY 07/26/18 07/30/18 Furosemide [Lasix] 20 mg PEG/G-TUBE DAILY 07/26/18 07/30/18 Glimepiride [Amaryl] 2 mg PEG/G-TUBE AC-BRKFST 07/26/18 07/30/18 HYDROcodone/APAP 5-325MG [[place] 1 tab PEG/G-TUBE Q4HR PRN 07/26/18 07/26/18 5-325] Insulin Detemir (Levemir) [Levemir] 46 unit SQ HS 07/26/18 07/30/18 Loperamide HCl [Loperamide] 15 ml PEG/G-TUBE Q2H PRN 07/26/18 07/26/18 Metoprolol Tartrate [Lopressor] 50 mg PEG/G-TUBE BID 07/26/18 07/30/18 Simvastatin [Zocor] 10 mg PEG/G-TUBE HS 07/26/18 07/30/18 metFORMIN HCL 1,000 mg PEG/G-TUBE BID 07/26/18 07/30/18 Previous Rx's Medication Instructions Recorded Nitroglycerin Sl Tabs [Nitrostat] 0.4 mg SUBLINGUAL Q5M PRN tab 04/13/17 Allergies Allergy/AdvReac Type Severity Reaction Status Date / Time No Known Allergies Allergy Verified 07/30/18 08:19 Review of Systems ROS Statement: Those systems with pertinent positive or pertinent negative responses have been documented in the HPI. ROS Other: All systems not noted in ROS Statement are negative. Past Medical History Past Medical History: Atrial Fibrillation, CVA/TIA, Diabetes Mellitus, Deep Vein Thrombosis (DVT), Eye Disorder, GERD/Reflux, Hyperlipidemia, Hypertension, Pneumonia Additional Past Medical History / Comment(s): HOSPITALIZED 03/02-03/08/17 FOR LETHARGY,UTI WITH METABOLIC ENCEPHALOPATHY. , HX OF CVA WITH RIGHT SIDED WEAKNESS ,PAST HX OF DECUBITUS ULCERS ON COCCYX & HEELS ,JUDSON LIFT USED TO MOVE TO WHEELCHAIR.,INCONTINENT., , STATES PT WILL ANSWER YES OR NO -SIMPLE QUESTIONS BUT UNSURE IF SHE COMPREHENDS., HX OF UTI'S. , BLIND RIGHT EYE, POOR VISION LEFT EYE., DIABETIC RETINOPATHY, HX OF SSS WITH PACEMAKER., PATIENT HAS GASTRIC PEG TUBE FOR FEEDINGS WHICH HAS BROKEN OFF AND HAS A SHORT TUBE. History of Any Multi-Drug Resistant Organisms: ESBL Date of last positivie culture/infection: 04/06/17 MDRO Source:: Urine Past Surgical History: Appendectomy, Back Surgery, Section, Cholecystectomy, Hernia Repair, Pacemaker, Tubal Ligation Additional Past Surgical History / Comment(s): RT EYE SURG for diabetic ret inopathy, lumbar fusion, PAPO FOOT SPUR SURG. Picc insertion. Past Anesthesia/Blood Transfusion Reactions: No Reported Reaction Type of Cardiac Device: Permanent Pacemaker Device Placement Date:: march 2017 Past Psychological History: No Psychological Hx Reported Smoking Status: Never smoker Past Alcohol Use History: None Reported Past Drug Use History: None Reported - Past Family History Mother Family Medical History: Cancer, Diabetes Mellitus Additional Family Medical History / Comment(s): mother is . Father History Unknown: Yes Daughter(s) Family Medical History: Diabetes Mellitus General Exam Limitations: no limitations General appearance: alert, in no apparent distress, other (Physical well- developed, well-nourished adult female patient in no obvious distress. Vital signs upon presentation are temperature 98.4F, pulse 82, respirations 20, blood pressure 125/78, pulse ox 98% on room air.) Eye exam: Present: normal appearance, PERRL, EOMI. Absent: scleral icterus, conjunctival injection, periorbital swelling ENT exam: Present: normal exam, normal oropharynx, mucous membranes moist Respiratory exam: Present: normal lung sounds bilaterally. Absent: respiratory distress, wheezes, rales, rhonchi, stridor Cardiovascular Exam: Present: regular rate, normal rhythm, normal heart sounds. Absent: systolic murmur, diastolic murmur, rubs, gallop, clicks GI/Abdominal exam: Present: soft, normal bowel sounds, other (There is mid abdominal ostomy present with rice catheter in currently. No surrounding tenderness or erythema. Mild whitish drainage.). Absent: distended, tenderness, guarding, rebound, rigid Neurological exam: Present: alert Psychiatric exam: Present: normal affect, normal mood Skin exam: Present: warm, dry, intact, normal color. Absent: rash Course Vital Signs 06/07/20 06/07/20 06/07/20 21:20 23:33 23:58 Temperature 98.4 F 98.5 F Pulse Rate 82 80 Respiratory 20 20 Rate Blood Pressure 125/78 116/65 O2 Sat by Pulse 98 97 Oximetry Procedures - Procedures Initial comment: 7cc of fluid was removed from rice catheter, rice was removed from PEG site very easily, catheter was intact. 14 fijian PEG tube was placed again very easily. 7cc of saline was instilled into the balloon. Tube was secured to abdomen. Patient tolerated the procedure well. Medical Decision Making - Medical Decision Making 69-year-old female patient presents to the emergency department today for PEG tube replacement after accidental removal. PEG tube was placed as documented in procedure note. X-ray with contrast was obtained and showed good placement of the PEG tube. Patient will be discharged back to her extended care facility. Disposition Clinical Impression: PEG tube malfunction Disposition: HOME SELF-CARE Condition: Good Instructions (If sedation given, give patient instructions): PEG Tube Insertion (DC) Is patient prescribed a controlled substance at d/c from ED?: No Referrals: Orion Martinez DO [Primary Care Provider] - 1-2 days Time of Disposition: 23:39
[2020-06-07 23:34] VITALS: BP 116/65; PULSE 80
--- NOTE | 2020-06-07 23:36 | XR ---
EXAMINATION TYPE: XR abdomen 1V DATE OF EXAM: 06/07/2020 COMPARISON: 06/03/2020 HISTORY: PEG tube placement TECHNIQUE: Single view FINDINGS: Single view shows contrast injected into the PEG tube and there is normal contrast opacific ation of the fundus and body of the stomach. IMPRESSION: PEG tube appears in good position.
[2020-06-08 00:02] VITALS: TEMP 98.5
== END 2020-06-07 23:57 | disposition home or self-care (01) ==
LOC: EC 21:17
DX: K94.23 Gastrostomy malfunction (principal); I10 Essential (primary) hypertension; E11.319 Type 2 diabetes mellitus with unspecified diabetic retinopathy without macular edema; K21.9 Gastro-esophageal reflux disease without esophagitis; E78.5 Hyperlipidemia, unspecified; Z79.01 Long term (current) use of anticoagulants; Z79.4 Long term (current) use of insulin; Z79.899 Other long term (current) drug therapy; Z86.718 Personal history of other venous thrombosis and embolism; Z86.73 Personal history of transient ischemic attack (TIA), and cerebral infarction without residual deficits; Z90.49 Acquired absence of other specified parts of digestive tract
CPT/HCPCS: 74018; 99283

== ENCOUNTER 2020-06-16 20:35 | Inpatient (IN) | payer MEDICARE, OTHER ==
--- NOTE | 2020-06-16 20:48 | ED ---
General Adult HPI - General Chief complaint: Altered Mental Status Stated complaint: Altered Mental Status Time Seen by Provider: 06/16/20 20:39 Source: patient, EMS, RN notes reviewed Mode of arrival: EMS Limitations: altered mental status, physical limitation - History of Present Illness Initial comments: Patient is a 69-year-old female presenting to the emergency Department with report of altered mental status. Unclear onset. Patient reportedly at times does have confusion and is not always verbally responsive. Patient appeared to be short of breath per nursing facility. Patient is nonverbal and offers no significant history. - Related Data Home Medications Medication Instructions Recorded Confirmed Magnesium Hydroxide [Milk of 30 ml PEG/G-TUBE DAILY PRN 03/02/17 07/26/18 Magnesia] bisacodyL [Dulcolax] 10 mg RECTAL DAILY PRN 03/02/17 07/26/18 Acetaminophen Tab [Tylenol] 650 mg PEG/G-TUBE Q6HR PRN 03/23/17 07/26/18 Apixaban [Eliquis] 5 mg PEG/G-TUBE BID 03/23/17 07/30/18 Ipratropium-Albuterol Nebulize 3 ml INHALATION BID 03/23/17 07/26/18 [Duoneb 0.5 mg-3 mg/3 ml Soln] lisinopriL [Prinivil] 20 mg PEG/G-TUBE DAILY 04/06/17 07/30/18 Cholecalciferol [Vitamin D3] 3,000 unit PO HS 07/26/18 07/26/18 Famotidine [Pepcid] 20 mg PEG/G-TUBE DAILY 07/26/18 07/30/18 Furosemide [Lasix] 20 mg PEG/G-TUBE DAILY 07/26/18 07/30/18 Glimepiride [Amaryl] 2 mg PEG/G-TUBE AC-BRKFST 07/26/18 07/30/18 HYDROcodone/APAP 5-325MG [[place] 1 tab PEG/G-TUBE Q4HR PRN 07/26/18 07/26/18 5-325] Insulin Detemir (Levemir) [Levemir] 46 unit SQ HS 07/26/18 07/30/18 Loperamide HCl [Loperamide] 15 ml PEG/G-TUBE Q2H PRN 07/26/18 07/26/18 Metoprolol Tartrate [Lopressor] 50 mg PEG/G-TUBE BID 07/26/18 07/30/18 Simvastatin [Zocor] 10 mg PEG/G-TUBE HS 07/26/18 07/30/18 metFORMIN HCL 1,000 mg PEG/G-TUBE BID 07/26/18 07/30/18 Previous Rx's Medication Instructions Recorded Nitroglycerin Sl Tabs [Nitrostat] 0.4 mg SUBLINGUAL Q5M PRN tab 04/13/17 Allergies Allergy/AdvReac Type Severity Reaction Status Date / Time No Known Allergies Allergy Verified 06/16/20 20:44 Review of Systems ROS Statement: Those systems with pertinent positive or pertinent negative responses have been documented in the HPI. ROS Other: All systems not noted in ROS Statement are negative. Limitations: ROS unobtainable due to patients medical condition Past Medical History Past Medical History: Atrial Fibrillation, CVA/TIA, Diabetes Mellitus, Deep Vein Thrombosis (DVT), Eye Disorder, GERD/Reflux, Hyperlipidemia, Hypertension, Pneumonia Additional Past Medical History / Comment(s): HOSPITALIZED 03/02-03/08/17 FOR LETHARGY,UTI WITH METABOLIC ENCEPHALOPATHY. , HX OF CVA WITH RIGHT SIDED WEAKNESS ,PAST HX OF DECUBITUS ULCERS ON COCCYX & HEELS ,JUDSON LIFT USED TO MOVE TO WHEELCHAIR.,INCONTINENT., , STATES PT WILL ANSWER YES OR NO -SIMPLE QUESTIONS BUT UNSURE IF SHE COMPREHENDS., HX OF UTI'S. , BLIND RIGHT EYE, POOR VISION LEFT EYE., DIABETIC RETINOPATHY, HX OF SSS WITH PACEMAKER., PATIENT HAS GASTRIC PEG TUBE FOR FEEDINGS WHICH HAS BROKEN OFF AND HAS A SHORT TUBE. History of Any Multi-Drug Resistant Organisms: ESBL Date of last positivie culture/infection: 04/06/17 MDRO Source:: Urine Past Surgical History: Appendectomy, Back Surgery, Section, Cholecystectomy, Hernia Repair, Pacemaker, Tubal Ligation Additional Past Surgical History / Comment(s): RT EYE SURG for diabetic retinopathy, lumbar fusion, PAPO FOOT SPUR SURG. Picc insertion. Past Anesthesia/Blood Transfusion Reactions: No Reported Reaction Type of Cardiac Device: Permanent Pacemaker Device Placement Date:: march 2017 Past Psychological History: No Psychological Hx Reported Smoking Status: Never smoker Past Alcohol Use History: None Reported Past Drug Use History: None Reported - Past Family History Mother Family Medical History: Cancer, Diabetes Mellitus Additional Family Medical History / Comment(s): mother is . Father History Unknown: Yes Daughter(s) Family Medical History: Diabetes Mellitus General Exam Limitations: altered mental status, physical limitation General appearance: alert Head exam: Present: atraumatic Eye exam: Present: normal appearance, PERRL ENT exam: Present: normal oropharynx, other (Gag reflex is present) Respiratory exam: Present: decreased breath sounds Cardiovascular Exam: Present: regular rate, normal rhythm GI/Abdominal exam: Present: soft. Absent: tenderness Extremities exam: Present: normal inspection Neurological exam: Present: alert, other (Nonverbal. Patient does withdrawal all extremities to pain.) Expanded Eye Response: (4) open spontaneously Motor Response: (4) withdraws to pain Verbal Response: (1) no verbal response Psychiatric exam: Present: flat affect Skin exam: Present: normal color Course Vital Signs 06/16/20 06/16/20 06/16/20 20:36 20:54 21:07 Temperature 100.0 F H Pulse Rate 60 67 Respiratory 10 L 16 Rate Blood Pressure 110/21 91/68 126/115 O2 Sat by Pulse 88 L 99 Oximetry 06/16/20 06/16/20 06/16/20 21:24 22:00 22:52 Temperature Pulse Rate 66 60 60 Respiratory 26 H 18 19 Rate Blood Pressure 133/46 99/47 105/31 O2 Sat by Pulse 96 96 97 Oximetry - Reevaluation(s) Reevaluation #1: 06/16/20 23:02 Nursing staff did talk with family who states patient does not usually verbalize much. EKG Findings - EKG Comments: EKG Findings:: Normal sinus rhythm at 67. WI 14. QRS 72. QT 410. QTc 433. Normal axis. Q waves V1 and V2. No acute ST change. Medical Decision Making - Medical Decision Making Patient reevaluated and resting comfortably in bed. Patient is tolerating BiPAP well. Case discussed with Dr. flanagan, covering for Dr. velez, who admits for Dr. Martinez, who will admit. Onset is unclear and therefore patient is not TPA candidate. Patient is already on anticoagulation at this time. Patient be admitted with consults with pulmonary as well as neurology. - Lab Data Result diagrams: 06/16/20 21:08 06/16/20 21:08 Lab Results 06/16/20 06/16/20 06/16/20 Range/Units 20:57 21:08 21:08 WBC 12.2 H (3.8-10.6) k/uL RBC 3.66 L (3.80-5.40) m/uL Hgb 8.0 L (11.4-16.0) gm/dL Hct 28.8 L (34.0-46.0) % MCV 78.6 L D (80.0-100.0) fL MCH 21.9 L (25.0-35.0) pg MCHC 27.9 L (31.0-37.0) g/dL RDW 18.9 H (11.5-15.5) % Plt Count 200 (150-450) k/uL MPV 9.4 Neutrophils % (Manual) 75 % Band Neuts % (Manual) 4 % Lymphocytes % (Manual) 17 % Monocytes % (Manual) 3 % Basophils % (Manual) 1 % Metamyelocytes % 1 % Neutrophils # (Manual) 9.60 H (1.3-7.7) k/uL Lymphocytes # (Manual) 2.07 (1.0-4.8) k/uL Monocytes # (Manual) 0.37 (0-1.0) k/uL Basophils # (Manual) 0.12 (0-0.2) k/uL Metamyelocytes # (Man) 0.12 H (0) k/uL Nucleated RBCs 1 H (0-0) /100 WBC Manual Slide Review Performed Large Platelets Present Polychromasia Present Hypochromasia Marked Poikilocytosis Marked Anisocytosis Slight Microcytosis Slight PT 11.0 (9.0-12.0) sec INR 1.1 (<1.2) APTT 22.4 (22.0-30.0) sec Sample Site ABG pH (7.35-7.45) ABG pCO2 (35-45) mmHg ABG pO2 (83-108) mmHg ABG HCO3 (21-25) mmol/L ABG Total CO2 (19-24) mmol/L ABG O2 Saturation (94-97) % ABG Base Excess mmol/L Ben Test FiO2 % Sodium (137-145) mmol/L Potassium (3.5-5.1) mmol/L Chloride (98-107) mmol/L Carbon Dioxide (22-30) mmol/L Anion Gap mmol/L BUN (7-17) mg/dL Creatinine (0.52-1.04) mg/dL Est GFR (CKD-EPI)AfAm (>60 ml/min/1.73 sqM) Est GFR (CKD-EPI)NonAf (>60 ml/min/1.73 sqM) Glucose (74-99) mg/dL POC Glucose (mg/dL) (75-99) mg/dL POC Glu Shear Grinder Operator Helper ID Calcium (8.4-10.2) mg/dL Total Bilirubin (0.2-1.3) mg/dL AST (14-36) U/L ALT (4-34) U/L Alkaline Phosphatase (38-126) U/L Lactate Dehydrogenase (313-618) U/L Troponin I (0.000-0.034) ng/mL C-Reactive Protein (<10.0) mg/L Total Protein (6.3-8.2) g/dL Albumin (3.5-5.0) g/dL Urine Color Urine Appearance (Clear) Urine pH (5.0-8.0) Ur Specific [place] (1.001-1.035) Urine Protein (Negative) Urine Glucose (UA) (Negative) Urine Ketones (Negative) Urine Blood (Negative) Urine Nitrite (Negative) Urine Bilirubin (Negative) Urine Urobilinogen (<2.0) mg/dL Ur Leukocyte Esterase (Negative) Urine RBC (0-5) /hpf Urine WBC (0-5) /hpf Urine WBC Clumps (None) /hpf Ur Squamous Epith Cells (0-4) /hpf Urine Bacteria (None) /hpf Hyaline Casts (0-2) /lpf Urine Mucus (None) /hpf Urine Opiates Screen (NotDetected) Ur Oxycodone Screen (NotDetected) Urine Methadone Screen (NotDetected) Ur Propoxyphene Screen (NotDetected) Ur Barbiturates Screen (NotDetected) U Tricyclic Antidepress (NotDetected) Ur Phencyclidine Scrn (NotDetected) Ur Amphetamines Screen (NotDetected) U Methamphetamines Scrn (NotDetected) U Benzodiazepines Scrn (NotDetected) Urine Cocaine Screen (NotDetected) U Marijuana (THC) Screen (NotDetected) Coronavirus (PCR) Not Detected (Not Detectd) 06/16/20 06/16/20 06/16/20 Range/Units 21:08 21:08 21:08 WBC (3.8-10.6) k/uL RBC (3.80-5.40) m/uL Hgb (11.4-16.0) gm/dL Hct (34.0-46.0) % MCV (80.0-100.0) fL MCH (25.0-35.0) pg MCHC (31.0-37.0) g/dL RDW (11.5-15.5) % Plt Count (150-450) k/uL MPV Neutrophils % (Manual) % Band Neuts % (Manual) % Lymphocytes % (Manual) % Monocytes % (Manual) % Basophils % (Manual) % Metamyelocytes % % Neutrophils # (Manual) (1.3-7.7) k/uL Lymphocytes # (Manual) (1.0-4.8) k/uL Monocytes # (Manual) (0-1.0) k/uL Basophils # (Manual) (0-0.2) k/uL Metamyelocytes # (Man) (0) k/uL Nucleated RBCs (0-0) /100 WBC Manual Slide Review Large Platelets Polychromasia Hypochromasia Poikilocytosis Anisocytosis Microcytosis PT (9.0-12.0) sec INR (<1.2) APTT (22.0-30.0) sec Sample Site ABG pH (7.35-7.45) ABG pCO2 (35-45) mmHg ABG pO2 (83-108) mmHg ABG HCO3 (21-25) mmol/L ABG Total CO2 (19-24) mmol/L ABG O2 Saturation (94-97) % ABG Base Excess mmol/L Ben Test FiO2 % Sodium 137 (137-145) mmol/L Potassium 5.6 H (3.5-5.1) mmol/L Chloride 97 L (98-107) mmol/L Carbon Dioxide 38 H (22-30) mmol/L Anion Gap 2 mmol/L BUN 57 H (7-17) mg/dL Creatinine 0.65 (0.52-1.04) mg/dL Est GFR (CKD-EPI)AfAm >90 (>60 ml/min/1.73 sqM) Est GFR (CKD-EPI)NonAf 90 (>60 ml/min/1.73 sqM) Glucose 136 H (74-99) mg/dL POC Glucose (mg/dL) (75-99) mg/dL POC Glu Shear Grinder Operator Helper ID Calcium 8.9 (8.4-10.2) mg/dL Total Bilirubin 0.4 (0.2-1.3) mg/dL AST 17 (14-36) U/L ALT 8 (4-34) U/L Alkaline Phosphatase 70 (38-126) U/L Lactate Dehydrogenase 453 (313-618) U/L Troponin I <0.012 (0.000-0.034) ng/mL C-Reactive Protein 19.0 H (<10.0) mg/L Total Protein 6.7 (6.3-8.2) g/dL Albumin 3.3 L (3.5-5.0) g/dL Urine Color Yellow Urine Appearance Cloudy H (Clear) Urine pH 5.5 (5.0-8.0) Ur Specific [place] 1.014 (1.001-1.035) Urine Protein Negative (Negative) Urine Glucose (UA) Negative (Negative) Urine Ketones Negative (Negative) Urine Blood Moderate H (Negative) Urine Nitrite Positive H (Negative) Urine Bilirubin Negative (Negative) Urine Urobilinogen <2.0 (<2.0) mg/dL Ur Leukocyte Esterase Large H (Negative) Urine RBC 3 (0-5) /hpf Urine WBC 34 H (0-5) /hpf Urine WBC Clumps Many H (None) /hpf Ur Squamous Epith Cells <1 (0-4) /hpf Urine Bacteria Moderate H (None) /hpf Hyaline Casts 8 H (0-2) /lpf Urine Mucus Rare H (None) /hpf Urine Opiates Screen Not Detected (NotDetected) Ur Oxycodone Screen Not Detected (NotDetected) Urine Methadone Screen Not Detected (NotDetected) Ur Propoxyphene Screen Not Detected (NotDetected) Ur Barbiturates Screen Not Detected (NotDetected) U Tricyclic Antidepress Not Detected (NotDetected) Ur Phencyclidine Scrn Not Detected (NotDetected) Ur Amphetamines Screen Not Detected (NotDetected) U Methamphetamines Scrn Not Detected (NotDetected) U Benzodiazepines Scrn Not Detected (NotDetected) Urine Cocaine Screen Not Detected (NotDetected) U Marijuana (THC) Screen Not Detected (NotDetected) Coronavirus (PCR) (Not Detectd) 06/16/20 06/16/20 Range/Units 21:20 21:21 WBC (3.8-10.6) k/uL RBC (3.80-5.40) m/uL Hgb (11.4-16.0) gm/dL Hct (34.0-46.0) % MCV (80.0-100.0) fL MCH (25.0-35.0) pg MCHC (31.0-37.0) g/dL RDW (11.5-15.5) % Plt Count (150-450) k/uL MPV Neutrophils % (Manual) % Band Neuts % (Manual) % Lymphocytes % (Manual) % Monocytes % (Manual) % Basophils % (Manual) % Metamyelocytes % % Neutrophils # (Manual) (1.3-7.7) k/uL Lymphocytes # (Manual) (1.0-4.8) k/uL Monocytes # (Manual) (0-1.0) k/uL Basophils # (Manual) (0-0.2) k/uL Metamyelocytes # (Man) (0) k/uL Nucleated RBCs (0-0) /100 WBC Manual Slide Review Large Platelets Polychromasia Hypochromasia Poikilocytosis Anisocytosis Microcytosis PT (9.0-12.0) sec INR (<1.2) APTT (22.0-30.0) sec Sample Site Right Radial ABG pH 7.23 L (7.35-7.45) ABG pCO2 89 H* (35-45) mmHg ABG pO2 296 H (83-108) mmHg ABG HCO3 38 H (21-25) mmol/L ABG Total CO2 40 H (19-24) mmol/L ABG O2 Saturation 100.0 H (94-97) % ABG Base Excess 10.2 mmol/L Ben Test Yes FiO2 100 % Sodium (137-145) mmol/L Potassium (3.5-5.1) mmol/L Chloride (98-107) mmol/L Carbon Dioxide (22-30) mmol/L Anion Gap mmol/L BUN (7-17) mg/dL Creatinine (0.52-1.04) mg/dL Est GFR (CKD-EPI)AfAm (>60 ml/min/1.73 sqM) Est GFR (CKD-EPI)NonAf (>60 ml/min/1.73 sqM) Glucose (74-99) mg/dL POC Glucose (mg/dL) 140 H (75-99) mg/dL POC Glu Shear Grinder Operator Helper ID Kylah Saxena Calcium (8.4-10.2) mg/dL Total Bilirubin (0.2-1.3) mg/dL AST (14-36) U/L ALT (4-34) U/L Alkaline Phosphatase (38-126) U/L Lactate Dehydrogenase (313-618) U/L Troponin I (0.000-0.034) ng/mL C-Reactive Protein (<10.0) mg/L Total Protein (6.3-8.2) g/dL Albumin (3.5-5.0) g/dL Urine Color Urine Appearance (Clear) Urine pH (5.0-8.0) Ur Specific [place] (1.001-1.035) Urine Protein (Negative) Urine Glucose (UA) (Negative) Urine Ketones (Negative) Urine Blood (Negative) Urine Nitrite (Negative) Urine Bilirubin (Negative) Urine Urobilinogen (<2.0) mg/dL Ur Leukocyte Esterase (Negative) Urine RBC (0-5) /hpf Urine WBC (0-5) /hpf Urine WBC Clumps (None) /hpf Ur Squamous Epith Cells (0-4) /hpf Urine Bacteria (None) /hpf Hyaline Casts (0-2) /lpf Urine Mucus (None) /hpf Urine Opiates Screen (NotDetected) Ur Oxycodone Screen (NotDetected) Urine Methadone Screen (NotDetected) Ur Propoxyphene Screen (NotDetected) Ur Barbiturates Screen (NotDetected) U Tricyclic Antidepress (NotDetected) Ur Phencyclidine Scrn (NotDetected) Ur Amphetamines Screen (NotDetected) U Methamphetamines Scrn (NotDetected) U Benzodiazepines Scrn (NotDetected) Urine Cocaine Screen (NotDetected) U Marijuana (THC) Screen (NotDetected) Coronavirus (PCR) (Not Detectd) - Radiology Data Radiology results: report reviewed (Computed tomography scan of the brain does show old infarcts. There is a 3.2 cm area hypodensity medial right occipital lobe that appears new.), image reviewed (Chest x-ray shows cardiac megaly. Mild pleural reaction right lung base. No heart failure.) Critical Care Time Critical Care Time: Yes Total Critical Care Time: 32 Disposition Clinical Impression: CVA (cerebral vascular accident), COPD (chronic obstructive pulmonary disease), Respiratory failure, Urinary tract infection Disposition: ADMITTED IP TO THIS [facility] Condition: Serious Is patient prescribed a controlled substance at d/c from ED?: No Referrals: Orion Martinez DO [Primary Care Provider] - 1-2 days Decision Time: 23:06
[2020-06-16] MEDS ORDERED: SODIUM CHLORIDE 0.9% 1,000 ML IV STA ×2 (20:49)
[2020-06-16 21:23] LABS: Glucose,Whole Blood 140 mg/dL (75-99)
[2020-06-16 21:24] LABS: ABG Base Excess 10.2 mmol/L; ABG HCO3 38 mmol/L (21-25); ABG PH 7.23 (7.35-7.45); ABG PO2 296 mmHg (83-108); ABG TCO2 40 mmol/L (19-24); Allen Test Performed? Yes
[2020-06-16 21:32] LABS: Appearance,Urine Cloudy (Clear); Bacteria,Urine Moderate /hpf; Bilirubin,Urine Negative (Negative); Blood,Urine Moderate (Negative); Color,Urine Yellow; Glucose,Urine (UA) Negative (Negative); Hyaline Casts,Urine 8 /lpf (0-2); Ketones,Urine Negative (Negative); Leukocyte Esterase,Urine Large (Negative); Mucus,Urine Rare /hpf; Nitrite,Urine Positive (Negative); PH, Urine 5.5 (5.0-8.0); Protein,Urine Negative (Negative); RBC,Urine 3 /hpf (0-5); Specific Gravity,Urine 1.014 (1.001-1.035); Squamous Epithelial Cell,Urine <1 /hpf (0-4); Urobilinogen,Urine <2.0 mg/dL (<2.0); WBC,Urine 34 /hpf (0-5)
[2020-06-16 21:37] LABS: ALT 8 U/L (4-34); AST 17 U/L (14-36); African American GFR (CKD) >90 (>60 ml/min/1.73 sqM); Albumin 3.3 g/dL (3.5-5.0); Alkaline Phosphatase 70 U/L (38-126); Anion Gap 2 mmol/L; Blood Urea Nitrogen 57 mg/dL (7-17); Calcium 8.9 mg/dL (8.4-10.2); Carbon Dioxide 38 mmol/L (22-30); Chloride 97 mmol/L (98-107); Glucose 136 mg/dL (74-99); LDH 453 U/L (313-618); Non-African American GFR(CKD) 90 (>60 ml/min/1.73 sqM); Potassium 5.6 mmol/L (3.5-5.1); Sodium 137 mmol/L (137-145); Total Bilirubin 0.4 mg/dL (0.2-1.3); Total Protein 6.7 g/dL (6.3-8.2)
[2020-06-16 21:41] LABS: INR 1.1 (<1.2); Partial Thromboplastin Time 22.4 sec (22.0-30.0)
--- NOTE | 2020-06-16 21:50 | XR ---
EXAMINATION TYPE: XR chest 1V portable DATE OF EXAM: 06/16/2020 COMPARISON: 05/07/2017 HISTORY: Altered mental status TECHNIQUE: FINDINGS: Heart is enlarged. There is no gross heart failure. There is coarsening of the lung marking s. There is left axillary pacemaker. There is no definite pleural effusion. There is slight blunting right costophrenic angle. IMPRESSION: Cardiomegaly. Mild pleural reaction right lung base. No heart failure seen. No significan t change compared to old exam.
[2020-06-16 22:00] LABS: Anisocytosis Slight; HCT 28.8 % (34.0-46.0); Hypochromasia Marked; MCH 21.9 pg (25.0-35.0); MCHC 27.9 g/dL (31.0-37.0); Mean Platelet Volume 9.4; Microcytosis Slight; Platelet Count 200 k/uL (150-450); Poikilocytosis Marked; RBC 3.66 m/uL (3.80-5.40); RDW 18.9 % (11.5-15.5)
[2020-06-16 22:01] LABS: Amphetamine Screen,Urine Not Detected (NotDetected); Barbiturate Screen,Urine Not Detected (NotDetected); Benzodiazepines Screen,Urine Not Detected (NotDetected); Cocaine Screen,Urine Not Detected (NotDetected); Methadone Screen, Urine Not Detected (NotDetected); Opiate Screen,Urine Not Detected (NotDetected); Oxycodone Screen, Urine Not Detected (NotDetected); Phencyclidine Screen,Urine Not Detected (NotDetected); Tricyclic Antidepressant,Urine Not Detected (NotDetected); Urn Cannabinoid Scrn Not Detected (NotDetected)
[2020-06-16 22:03] LABS: ABG PCO2 89 mmHg (35-45)
--- NOTE | 2020-06-16 22:06 | CT ---
EXAMINATION TYPE: CT brain wo con DATE OF EXAM: 06/16/2020 COMPARISON: 03/02/2017 HISTORY: Unresponsive CT DLP: 1231.4 mGycm Automated exposure control for dose reduction was used. There is cerebral atrophy. There is no mass effect. There is irregular hypodensity in the left and ri ght parietal lobes consistent with old infarct and encephalomalacia. There is no midline shift. There is no evidence of intracranial hemorrhage. The calvarium is intact. There is calcification in the ri ght globe. Skull base is intact. There is 3 x 2 cm area of hypodensity in the medial right occipital lobe. IMPRESSION: Bilateral old infarcts in the right and left parietal lobes and the right occipital lobe. Right parie markie infarct not changed compared to old exam. The other infarcts appear new. Cerebral atrophy.
[2020-06-16 22:07] LABS: MCV 78.6 fL (80.0-100.0)
[2020-06-16 22:28] LABS: Band Neutrophils % 4 %; Basophils # (M) 0.12 k/uL (0-0.2); Large Platelets Present; Lymphocytes # (M) 2.07 k/uL (1.0-4.8); Metamyelocytes # (M) 0.12 k/uL (0); Metamyelocytes % 1 %; Monocytes # (M) 0.37 k/uL (0-1.0); Neutrophils % (M) 75 %; Nucleated Red Blood Cells 1 /100 WBC (0-0); Polychromasia Present; Total Cells Counted 200; WBC 12.2 k/uL (3.8-10.6)
[2020-06-16] MEDS ORDERED: methylPREDNISolone SOD SUCCI 125 MG/2 ML VIAL IV STA (23:08)
[2020-06-16] MEDS ORDERED: IPRATROPIUM-ALBUTEROL 3 ML NEB INHALATION PRN (23:08)
[2020-06-16] MEDS: SODIUM CHLORIDE 0.9% 1,000 ML IV SCH (23:21)
[2020-06-16] MEDS: ASPIRIN 300 MG SUPP RECTAL SCH (23:29)
[2020-06-17] MEDS: methylPREDNISolone SOD SUCCI 125 MG/2 ML VIAL IV SCH ×4 (04:10→20:55)
[2020-06-17] MEDS: IPRATROPIUM-ALBUTEROL 3 ML NEB INHALATION SCH ×4 (07:24→20:35)
--- NOTE | 2020-06-17 10:09 | P.CNNES ---
History of Present Illness Consult date: 06/07/20 Requesting physician: Harvey Coughlin Reason for Consult: Old stroke finding on CT head History of Present Illness: This is a 69-year-old woman with history of multifocal strokes, atrial fibrillation status post pacemaker, fusion diabetes, DVT, hyperlipidemia, hypertension, diabetic retinopathy, blind in the right eye that presented to the emergency department on 06/16/2020 for altered mental status. History is obtained from medical records since she is unable to provide the history. According to the medical record the patient reportedly at times does have confusions was verbally responsive. Per the nursing facility the patient has been short of breath. Unclear of the onset and her change in mentation. According to the home medication the patient is on the Eliquis 5 mg a twice a day and is on the simvastatin 10 mg daily. Per the patient's nurse, patient baseline per nursing facility is non-verbal and bed bound. Workup in the hospital consisted of: Initial vital signs is pressure of 110/21 with a heart rate of 60, temperature of 100.0 Fahrenheit axillary, respiratory rate is 10 and the pulse ox of 88 L on 4 L of nasal cannula. CT of the head is reported as bilateral old infarct in the right and left par ietal lobe and the right occipital lobe. The right parietal infarct not change compared to the old exam. The other infarct appears new. Cerebral atrophy. Upon personal review of CT head 2017, I felt the right parietal was old in 2017 but I felt like she had subacute over the right occipital as well in 2017 image. EKG is reported as normal sinus rhythm with sinus arrhythmia. Septal infarct, a ge undetermined. Abnormal EKG. X-ray was reported as cardiomegaly. Mild pleural reaction right lung base. Normal heart failure seen. No significant change compared to old exam. Patient initial white blood cell is 12.2 and seems neutrophilic. Patient hemoglobin is 8.0 hematocrit is 28.8. Potassium is 5.6, BUN is 57. The serum glucose is 136. The CRP is 19. Patient ABG is pH of 7.23, pCO2 is 89, pO2 is 296. Urine analysis is seems to be consistent with urinary tract infection: What appeared cloudy, nitrate is positive, urine leukocyte esterase was large, urine white blood cell was 34 and your urine bacteria was moderate Patient was evaluated by neuro hospitalist over our facility in the 01/2017: Of note the patient had MRI the brain on 02/16/2017 because of altered mental status and unresponsive and that was reported as multifocal predominantly cortical area of subacute stroke. And the body of reported the patient had restricted diffusion noted in the left and right cerebellar hemisphere, additional foci involving the medial occipital lobe right greater than the left, temporal lobe bilaterally with small foci scattered in the frontal lobe, larger area in the right greater than the left parietal lobe. Patient had CT angiography of the head and neck and was reported as no high- grade stenosis or occlusion. Carotid duplex in 2017 was reported as I don't see evidence of hemodynamically significant stenosis in either common or internal carotid artery. Elevated flow velocity, right external carotid artery. She had an EEG and was reported as EEG is moderately abnormal in diffuse fashion due to slowing of the EEG background. The EEG felt to reveal any focal lateralized or apple from abnormality. As quickly indicated a follow-up EEG is recommended. Local correlation is recommended. Hematology was consulted and that they ruled out neuropathy at defect. The patient at that time had a loop recorder placed by cardiology. Also rheumatology was consulted to rule out encephalitis. Lastly the physical exam by the neuro hospitalist stated that the at that time in 2017 she was slightly aphasic and she had visual impairment bilaterally and her memory intellectual function are impaired. She had weakness in the left upper extremity as well as facial droop. Review of Systems Review of system is limited but apparent positive and negative as per HPI. Past Medical History Past Medical History: Atrial Fibrillation, CVA/TIA, Diabetes Mellitus, Deep Vein Thrombosis (DVT), Eye Disorder, GERD/Reflux, Hyperlipidemia, Hypertension, Pneumonia Additional Past Medical History / Comment(s): HOSPITALIZED 03/02-03/08/17 FOR LETHARGY,UTI WITH METABOLIC ENCEPHALOPATHY. , HX OF CVA WITH RIGHT SIDED WEAKNESS ,PAST HX OF DECUBITUS ULCERS ON COCCYX & HEELS ,JUDSON LIFT USED TO MOVE TO WHEELCHAIR.,INCONTINENT., , STATES PT WILL ANSWER YES OR NO -SIMPLE QUESTIONS BUT UNSURE IF SHE COMPREHENDS., HX OF UTI'S. , BLIND RIGHT EYE, POOR VISION LEFT EYE., DIABETIC RETINOPATHY, HX OF SSS WITH PACEMAKER., PATIENT HAS GASTRIC PEG TUBE FOR FEEDINGS WHICH HAS BROKEN OFF AND HAS A SHORT TUBE. History of Any Multi-Drug Resistant Organisms: ESBL Date of last positivie culture/infection: 04/06/17 MDRO Source:: Urine Past Surgical History: Appendectomy, Back Surgery, Section, Cholecy stectomy, Hernia Repair, Pacemaker, Tubal Ligation Additional Past Surgical History / Comment(s): RT EYE SURG for diabetic retinopathy, lumbar fusion, PAPO FOOT SPUR SURG. Picc insertion. Past Anesthesia/Blood Transfusion Reactions: No Reported Reaction Type of Cardiac Device: Permanent Pacemaker Device Placement Date:: march 2017 Past Psychological History: No Psychological Hx Reported Smoking Status: Never smoker Past Alcohol Use History: None Reported Past Drug Use History: None Reported - Past Family History Mother Family Medical History: Cancer, Diabetes Mellitus Additional Family Medical History / Comment(s): mother is . Father History Unknown: Yes Daughter(s) Family Medical History: Diabetes Mellitus Medications and Allergies Home Medications Medication Instructions Recorded Confirmed Type Magnesium Hydroxide [Milk of 2,400 ml PEG/G-TUBE DAILY PRN 03/02/17 06/16/20 History Magnesia] Apixaban [Eliquis] 5 mg PEG/G-TUBE BID 03/23/17 06/16/20 History lisinopriL [Prinivil] 20 mg PEG/G-TUBE DAILY 04/06/17 06/16/20 History Nitroglycerin Sl Tabs [Nitrostat] 0.4 mg SUBLINGUAL Q5M PRN tab 04/13/17 06/16/20 Rx Cholecalciferol [Vitamin D3] 4,000 unit PO DAILY@1400 07/26/18 06/16/20 History Famotidine [Pepcid] 20 mg PEG/G-TUBE DAILY@1400 07/26/18 06/16/20 History Furosemide [Lasix] 20 mg PEG/G-TUBE DAILY 07/26/18 06/16/20 History Metoprolol Tartrate [Lopressor] 50 mg PEG/G-TUBE BID 07/26/18 06/16/20 History Simvastatin [Zocor] 10 mg PEG/G-TUBE DAILY@1400 07/26/18 06/16/20 History metFORMIN HCL 1,000 mg PEG/G-TUBE BID 07/26/18 06/16/20 History Insulin Detemir [Levemir Flextouch] 44 units SQ DAILY 06/16/20 06/16/20 History Insulin Detemir [Levemir Flextouch] 48 units PEG/G-TUBE DAILY@1400 06/16/20 06/16/20 History Lactobacillus Acidophilus 1 tab PEG/G-TUBE DAILY 06/16/20 06/16/20 History [Acidophilus] Multivitamin with Iron 1 tab PEG/G-TUBE DAILY@1400 06/16/20 06/16/20 History [Multivitamins with Iron] sitaGLIPtin [Januvia] 100 mg PEG/G-TUBE DAILY 06/16/20 06/16/20 History Allergies Allergy/AdvReac Type Severity Reaction Status Date / Time No Known Allergies Allergy Verified 06/16/20 23:17 Physical Examination - Vital Signs Vital Signs: Vital Signs Temp Pulse Resp BP Pulse Ox 06/17/20 07:35 64 06/17/20 07:24 62 06/17/20 06:50 60 16 108/49 96 06/17/20 04:10 99 F 71 16 109/55 100 06/17/20 02:15 63 18 94/67 100 06/17/20 01:30 65 17 126/42 100 06/17/20 00:15 60 19 119/51 100 06/16/20 23:36 63 16 123/94 06/16/20 22:52 60 19 105/31 97 06/16/20 22:00 60 18 99/47 96 06/16/20 21:24 66 26 H 133/46 96 06/16/20 21:07 126/115 06/16/20 20:54 67 16 91/68 99 06/16/20 20:36 100.0 F H 60 10 L 110/21 88 L Intake and Output 06/16/20 06/17/20 06/17/20 22:59 06:59 14:59 Other: Weight 145.15 kg GENERAL: The patient is lying in bed and is not in acute distress. CHEST: The heart rate is regular rate rhythm. No murmurs to auscultation. No carotid bruit bilaterally. LUNG: Clear to auscultation bilaterally no wheezing noted throughout. Not labored breathing. She was on CPAP machine. ABDOMEN/GI: Bowel sounds present in all 4 quadrants. No tenderness to palpation throughout. NEUROLOGICAL: Limited because of patient's condition. Higher mental function: The patient is stupor and opens eyes briefly to painful stimuli. She is not verbally reponsive or following command. Cranial nerves: The pupils are round, right pupil is 6mm while left is 2-3mm and both are sluggishly reactive to light. Unable to assess extraocular movement because of her condition. Had CPAP machine mask on and upon removing it no noticeable facial weakness no ticed. Motor: Gait is deferred. The Strength: unable to assess because of her condition (but was grimacing to painful stimuli throughout). There is minimally withdrawl of bilateral upper extremities to painful stimuli and significant movement noted. Cerebellum: Unable to assess. Sensation: Unable to assess light touch but grimaces throughout to painful stimuli. Reflexes (right/left): 1+ throughout. Plantars are mute bilaterally. Results Urine drug seen the was negative Leonard virus PCR was not detected. Ablation study: PT of 11.0, INR is 1.1 and PTT of 22.4. - Laboratory Findings CBC and BMP: 06/17/20 15:48 06/16/20 21:08 Abnormal Lab Findings: Abnormal Labs 06/16/20 06/16/20 06/16/20 21:08 21:08 21:08 WBC 12.2 H RBC 3.66 L Hgb 8.0 L Hct 28.8 L MCV 78.6 L D MCH 21.9 L MCHC 27.9 L RDW 18.9 H Neutrophils # (Manual) 9.60 H Metamyelocytes # (Man) 0.12 H Nucleated RBCs 1 H ABG pH ABG pCO2 ABG pO2 ABG HCO3 ABG Total CO2 ABG O2 Saturation Potassium 5.6 H Chloride 97 L Carbon Dioxide 38 H BUN 57 H Glucose 136 H POC Glucose (mg/dL) C-Reactive Protein 19.0 H Albumin 3.3 L Urine Appearance Cloudy H Urine Blood Moderate H Urine Nitrite Positive H Ur Leukocyte Esterase Large H Urine WBC 34 H Urine WBC Clumps Many H Urine Bacteria Moderate H Hyaline Casts 8 H Urine Mucus Rare H 06/16/20 06/16/20 21:20 21:21 WBC RBC Hgb Hct MCV MCH MCHC RDW Neutrophils # (Manual) Metamyelocytes # (Man) Nucleated RBCs ABG pH 7.23 L ABG pCO2 89 H* ABG pO2 296 H ABG HCO3 38 H ABG Total CO2 40 H ABG O2 Saturation 100.0 H Potassium Chloride Carbon Dioxide BUN Glucose POC Glucose (mg/dL) 140 H C-Reactive Protein Albumin Urine Appearance Urine Blood Urine Nitrite Ur Leukocyte Esterase Urine WBC Urine WBC Clumps Urine Bacteria Hyaline Casts Urine Mucus Assessment and Plan Assessment: This is a 69-year-old with significant medical history that presented to our emergency department on 06/16/20 for altered mental status. Per the nursing facility the patient has been short of breath. Per the patient's nurse, patient baseline per nursing facility is non-verbal and bed bound. * Toxic metabolic encephalopathy: Due to multiple factorial respiratory failure, urinary tract infection, anemia and electrolyte imbalance) * Multiple old stroke (bilateral parietal and right occipital reported on current CT head. Patient had MRI the brain on 02/16/2017 was reported as multifocal predominantly cortical area of subacute stroke. Restricted diffusion noted in the left and right cerebellar hemisphere, additional foci involving the medial occipital lobe right greater than the left, temporal lobe bilaterally with small foci scattered in the frontal lobe, larger area in the right greater than the left parietal lobe. This is likely due to cardioembolic. * non-verbal and bed bound (per patient nurse according to nursing facility) * Acute respiratory failure * Anemia * Atrial fibrillation s/p pacemaker and on Eliquis 5 mg twice a day * Urinary tract infection * Electrolyte imbalance * History of DVT on the Eliquis * Hyperlipidemia * Hypertension * Diabetic retinal about the an blind over the right eye * History of lumbar fusion Plan: The patient CT of the head the findings of strokes are old. 2-D echo and carotid duplex were ordered by the ED. Lipid profile was also ordered by the ED. She was given aspirin throughout a milligrams rectally in the ED. I start the patient on aspirin 81 mg standing dose I'll defer using any other antiplatelets or anticoagulation because of the anemia the patient has currently. Patient does have according to the medical record and history of atrial fibrillation and she is on Eliquis 5 mg twice a day which is being held because of the patient's anemia. I started the patient on the Lipitor 40 mg daily. I consult cardiology since I felt those old strokes were cardioembolic. Physical therapy, occupational therapy and therapy are consulted by the ED. I ordered routine EEG and will not start anti-epileptic drug unless there is epileptiform discharge or seizure seen. On 06/16/20TSH is 3.21 which is normal, hemoglobin A1c is 6.3 which is elevated. These labs don't need to be repeated. I'll order vitamin B12 and folate. Regarding the patient urinary tract infection and any other underlying infection will defer to the primary team. Regarding the patient respiratory cues Dr. Chambers is consulted Thank you for the consultation. Twin Pan M.D. Neuro-hospitalist Time with Patient: Greater than 30
[2020-06-17] MEDS: SODIUM CHLORIDE 0.9% 1,000 ML IV SCH ×2 (10:53→20:27)
[2020-06-17 11:25] LABS: Cholesterol 109 mg/dL (<200); HDL Cholesterol 27 mg/dL (40-60); LDL Cholesterol,Calculated 58 mg/dL (0-99); Triglycerides 122 mg/dL (<150)
[2020-06-17] MEDS ORDERED: NITROGLYCERIN SL TABS 0.4 MG TAB SUBLINGUAL PRN (11:49)
--- NOTE | 2020-06-17 12:50 | P.HPIM ---
History of Present Illness This is a pleasant 69 years old female with past medical history of stroke since 2017 with dysphagia status post PEG tube. Other medical problems including atrial fibrillation, DVT, GERD, hyperlipidemia, hypertension. Presents because of altered mental status and low-grade fever. Patient could not provide information and were obtained from the chart. As per documentation was presented because of altered mental status with Schiller respiration and there was concerns for aspiration. He came from [facility]. Patient does not follow, and currently. He had a temperature of 100.0 upon admission. He was also hypoxic 88% on 4 L oxygen dependent and a cannula, came up to 99% on 10 L Labs showing mild leukocytosis of 12.8, hemoglobin is 8.0, platelet is normal. INR is 1.1, ABG showing low pH of 7.2 and high pCO2 of 89 and bicarb of 38, oxygen is 296. Potassium slightly elevated at 5.6, creatinine is normal 0.65. Liver enzymes not elevated. Troponin is negative less than 0.012. C-reactive protein is slightly elevated at 19, lactate dehydrogenase is normal at 453. ProBNP is 2730. Urinalysis is suspicious for infection. Urinary tract screen is negative Coronal virus not detected EKG showed normal sinus rhythm at [address]-T changes CT of the brain: Bilateral old infarcts in the right and left parietal lobes and the right occipital lobe. Right parietal infarct not change compared to old exam. The other infarcts appear new. Cerebral atrophy Patient already has been evaluated by neurologist recommended cardiology evaluation for possible cardioembolic source In the emergency room patient was started on ceftriaxone, Solu-Medrol 60 mg and he received 2 L of normal saline and then continued at 100 mL per hour. Also he was started on BiPAP there was concern for anemia with a low hemoglobin at 8.0. Review of Systems n/a patient could not provide information Past Medical History Past Medical History: Atrial Fibrillation, CVA/TIA, Diabetes Mellitus, Deep Vein Thrombosis (DVT), Eye Disorder, GERD/Reflux, Hyperlipidemia, Hypertension, Pneumonia Additional Past Medical History / Comment(s): HOSPITALIZED 03/02-03/08/17 FOR LETHARGY,UTI WITH METABOLIC ENCEPHALOPATHY. , HX OF CVA WITH RIGHT SIDED WEAKNESS ,PAST HX OF DECUBITUS ULCERS ON COCCYX & HEELS ,JUDSON LIFT USED TO MOVE TO WHEELCHAIR.,INCONTINENT., , STATES PT WILL ANSWER YES OR NO -SIMPLE QUESTIONS BUT UNSURE IF SHE COMPREHENDS., HX OF UTI'S. , BLIND RIGHT EYE, POOR VISION LEFT EYE., DIABETIC RETINOPATHY, HX OF SSS WITH PACEMAKER., PATIENT HAS GASTRIC PEG TUBE FOR FEEDINGS WHICH HAS BROKEN OFF AND HAS A SHORT TUBE. History of Any Multi-Drug Resistant Organisms: ESBL Date of last positivie culture/infection: 04/06/17 MDRO Source:: Urine Past Surgical History: Appendectomy, Back Surgery, Section, Chol ecystectomy, Hernia Repair, Pacemaker, Tubal Ligation Additional Past Surgical History / Comment(s): RT EYE SURG for diabetic retinopathy, lumbar fusion, PAPO FOOT SPUR SURG. Picc insertion. Past Anesthesia/Blood Transfusion Reactions: No Reported Reaction Type of Cardiac Device: Permanent Pacemaker Device Placement Date:: march 2017 Past Psychological History: No Psychological Hx Reported Smoking Status: Never smoker Past Alcohol Use History: None Reported Past Drug Use History: None Reported - Past Family History Mother Family Medical History: Cancer, Diabetes Mellitus Additional Family Medical History / Comment(s): mother is . Father History Unknown: Yes Daughter(s) Family Medical History: Diabetes Mellitus Medications and Allergies Home Medications Medication Instructions Recorded Confirmed Type Magnesium Hydroxide [Milk of 2,400 ml PEG/G-TUBE DAILY PRN 03/02/17 06/16/20 History Magnesia] Apixaban [Eliquis] 5 mg PEG/G-TUBE BID 03/23/17 06/16/20 History lisinopriL [Prinivil] 20 mg PEG/G-TUBE DAILY 04/06/17 06/16/20 History Nitroglycerin Sl Tabs [Nitrostat] 0.4 mg SUBLINGUAL Q5M PRN tab 04/13/17 06/16/20 Rx Cholecalciferol [Vitamin D3] 4,000 unit PO DAILY@1400 07/26/18 06/16/20 History Famotidine [Pepcid] 20 mg PEG/G-TUBE DAILY@1400 07/26/18 06/16/20 History Furosemide [Lasix] 20 mg PEG/G-TUBE DAILY 07/26/18 06/16/20 History Metoprolol Tartrate [Lopressor] 50 mg PEG/G-TUBE BID 07/26/18 06/16/20 History Simvastatin [Zocor] 10 mg PEG/G-TUBE DAILY@1400 07/26/18 06/16/20 History metFORMIN HCL 1,000 mg PEG/G-TUBE BID 07/26/18 06/16/20 History Insulin Detemir [Levemir Flextouch] 44 units SQ DAILY 06/16/20 06/16/20 History Insulin Detemir [Levemir Flextouch] 48 units PEG/G-TUBE DAILY@1400 06/16/20 06/16/20 History Lactobacillus Acidophilus 1 tab PEG/G-TUBE DAILY 06/16/20 06/16/20 History [Acidophilus] Multivitamin with Iron 1 tab PEG/G-TUBE DAILY@1400 06/16/20 06/16/20 History [Multivitamins with Iron] sitaGLIPtin [Januvia] 100 mg PEG/G-TUBE DAILY 06/16/20 06/16/20 History Allergies Allergy/AdvReac Type Severity Reaction Status Date / Time No Known Allergies Allergy Verified 06/16/20 23:17 Physical Exam Vitals: Vital Signs Temp Pulse Resp BP Pulse Ox 06/17/20 10:43 60 16 145/55 98 06/17/20 07:35 64 06/17/20 07:24 62 06/17/20 06:50 60 16 108/49 96 06/17/20 04:10 99 F 71 16 109/55 100 06/17/20 02:15 63 18 94/67 100 06/17/20 01:30 65 17 126/42 100 06/17/20 00:15 60 19 119/51 100 06/16/20 23:36 63 16 123/94 06/16/20 22:52 60 19 105/31 97 06/16/20 22:00 60 18 99/47 96 06/16/20 21:24 66 26 H 133/46 96 06/16/20 21:07 126/115 06/16/20 20:54 67 16 91/68 99 06/16/20 20:36 100.0 F H 60 10 L 110/21 88 L Intake and Output 06/16/20 06/17/20 06/17/20 22:59 06:59 14:59 Other: Weight 145.15 kg -GENERAL: The patient is nonverbal. Does not follow commands. Obese HEENT: Pupils are round and equally reacting to light. EOMI. No scleral icterus. No conjunctival pallor. Normocephalic, atraumatic. No pharyngeal erythema. No thyromegaly. CARDIOVASCULAR: S1 and S2 present. No murmurs, rubs, or gallops. -PULMONARY: Chest is clear to auscultation, bilateral scattered wheezing -ABDOMEN: Soft, nontender, nondistended, normoactive bowel sounds. No palpable organomegaly. PEG tube is in place MUSCULOSKELETAL: No joint swelling or deformity. EXTREMITIES: No cyanosis, clubbing, or pedal edema. NEUROLOGICAL: Gross neurological examination did not reveal any focal deficits. SKIN: No rashes. No petechiae Results CBC & Chem 7: 06/16/20 21:08 06/16/20 21:08 Labs: Abnormal Lab Results - Last 24 Hours (Table) 06/16/20 06/16/20 06/16/20 Range/Units 21:08 21:08 21:08 WBC 12.2 H (3.8-10.6) k/uL RBC 3.66 L (3.80-5.40) m/uL Hgb 8.0 L (11.4-16.0) gm/dL Hct 28.8 L (34.0-46.0) % MCV 78.6 L D (80.0-100.0) fL MCH 21.9 L (25.0-35.0) pg MCHC 27.9 L (31.0-37.0) g/dL RDW 18.9 H (11.5-15.5) % Neutrophils # (Manual) 9.60 H (1.3-7.7) k/uL Metamyelocytes # (Man) 0.12 H (0) k/uL Nucleated RBCs 1 H (0-0) /100 WBC ABG pH (7.35-7.45) ABG pCO2 (35-45) mmHg ABG pO2 (83-108) mmHg ABG HCO3 (21-25) mmol/L ABG Total CO2 (19-24) mmol/L ABG O2 Saturation (94-97) % Potassium 5.6 H (3.5-5.1) mmol/L Chloride 97 L (98-107) mmol/L Carbon Dioxide 38 H (22-30) mmol/L BUN 57 H (7-17) mg/dL Glucose 136 H (74-99) mg/dL POC Glucose (mg/dL) (75-99) mg/dL C-Reactive Protein 19.0 H (<10.0) mg/L Albumin 3.3 L (3.5-5.0) g/dL Urine Appearance Cloudy H (Clear) Urine Blood Moderate H (Negative) Urine Nitrite Positive H (Negative) Ur Leukocyte Esterase Large H (Negative) Urine WBC 34 H (0-5) /hpf Urine WBC Clumps Many H (None) /hpf Urine Bacteria Moderate H (None) /hpf Hyaline Casts 8 H (0-2) /lpf Urine Mucus Rare H (None) /hpf 06/16/20 06/16/20 Range/Units 21:20 21:21 WBC (3.8-10.6) k/uL RBC (3.80-5.40) m/uL Hgb (11.4-16.0) gm/dL Hct (34.0-46.0) % MCV (80.0-100.0) fL MCH (25.0-35.0) pg MCHC (31.0-37.0) g/dL RDW (11.5-15.5) % Neutrophils # (Manual) (1.3-7.7) k/uL Metamyelocytes # (Man) (0) k/uL Nucleated RBCs (0-0) /100 WBC ABG pH 7.23 L (7.35-7.45) ABG pCO2 89 H* (35-45) mmHg ABG pO2 296 H (83-108) mmHg ABG HCO3 38 H (21-25) mmol/L ABG Total CO2 40 H (19-24) mmol/L ABG O2 Saturation 100.0 H (94-97) % Potassium (3.5-5.1) mmol/L Chloride (98-107) mmol/L Carbon Dioxide (22-30) mmol/L BUN (7-17) mg/dL Glucose (74-99) mg/dL POC Glucose (mg/dL) 140 H (75-99) mg/dL C-Reactive Protein (<10.0) mg/L Albumin (3.5-5.0) g/dL Urine Appearance (Clear) Urine Blood (Negative) Urine Nitrite (Negative) Ur Leukocyte Esterase (Negative) Urine WBC (0-5) /hpf Urine WBC Clumps (None) /hpf Urine Bacteria (None) /hpf Hyaline Casts (0-2) /lpf Urine Mucus (None) /hpf Microbiology - Last 24 Hours (Table) 06/16/20 21:08 Urine Culture - Preliminary Urine,Voided Assessment and Plan Assessment: Acute hypoxic, hypercapnic respiratory failure Acute COPD exacerbation Metabolic encephalopathy secondary to above Acute urinary tract infection Hypochromic microcytic Anemia, rule out GI bleed Multiple strokes. Bilateral cerebral infarcts, they look old however they are new compared to old exam especially in the right occipital lobe and the left parietal lobe. Rule out cardiac source history of stroke since 2017 with dysphagia status post PEG tube Hypertension Hyperlipidemia Diabetes mellitus History of paroxysmal atrial fibrillation, was on Eliquis History of stroke Plan: This is a pleasant 69 years old female who presents with multiple problems including COPD exacerbation and hypercapnia. AMS. UTI. Multiple several strokes.Continue with aspirin and Lipitor. I would consider restarting anticoagulation in hemoglobin stabilized. Check iron studies and occult blood in stool . Continue with steroids, bronchodilator. Continue with antibiotic. Continue with BiPAP as needed with pulmonary consult. Follow-up recommendation by cardiology and neurology , follow-up neurology workup off EEG, carotid duplex and echocardiogram . Continu e with gentle hydration Labs and medication were reviewed.. Continue same treatment. Continue with symptomatic treatment. Resume home medication. Monitor lytes and vitals. DVT and GI prophylaxis. Further recommendations depends on the clinical course of the patient DVT prophylaxis: Eliquis IS HELD FOR ANEMIA GI Prophylaxis: ppi Prognosis is guarded
[2020-06-17] MEDS ORDERED: ATORVASTATIN 10 MG TAB PEG/G-TUBE SCH (14:00)
--- NOTE | 2020-06-17 14:00 | ECHOF ---
Referral Reason:Thrombus MEASUREMENTS -------- HEIGHT: 170.2 cm WEIGHT: 145.1 kg BP: 108/49 IVSd: 1.5 cm (0.6 - 1.1) LVIDd: 3.9 cm (3.9 - 5.3) LVPWd: 1.6 cm (0.6 - 1.1) EDV(Teich): 67 ml IVSs: 2.0 cm LVIDs: 3.1 cm LVPWs: 2.0 cm %IVS Thck: 29 % ESV(Teich): 38 ml EF(Teich): 43 % %FS: 21 % SV(Teich): 29 ml LA Diam: 3.8 cm (2.7 - 3.8) RVIDd: 3.5 cm (< 3.3) LALs A4C: 7.2 cm LAAs A4C: 22.9 cm LAESV A-L A4C: 61 ml LAESV MOD A4C: 58 ml LALs A2C: 6.7 cm LAAs A2C: 25.0 cm LAESV A-L A2C: 79 ml LAESV MOD A2C: 75 ml LAESV(A-L): 72 ml LAESV Index (A-L): 29.27 ml/m Ao Diam: 3.9 cm (2.0 - 3.7) AV Cusp: 2.1 cm (1.5 - 2.6) EPSS: 0.4 cm MV E Doug: 0.95 m/s MV DecT: 234 ms MV Dec [place]: 4.1 m/s MV A Doug: 0.75 m/s MV E/A Ratio: 1.26 MV PHT: 68 ms AV Vmax: 1.39 m/s AV maxP.70 mmHg TR Vmax: 3.04 m/s TR maxP.92 mmHg RAP: 5.00 mmHg RVSP: 41.92 mmHg MV EF SLOPE: 205.53 mm/s (70 - 150) MV EXCURSION: 18.07 mm (> 18.000) FINDINGS -------- Sinus rhythm. This was a technically difficult study with suboptimal views. The left ventricular size is normal. There is moderate concentric left ventricular hypertrophy. O verall left ventricular systolic function is normal with, an EF between 65 - 70 %. Basal inferosept al LV wall motion is hypokinetic. Mid anteroseptal LV wall motion is hypokinetic. The right ventricle is mildly enlarged. The left atrial size is normal. The right atrium was not well visualized. Lumason used The aortic valve was not well visualized. The mitral valve was not well visualized. Mild tricuspid regurgitation present. There is mild pulmonary hypertension. The right ventricular systolic pressure, as measured by Doppler, is 41.92mmHg. The pulmonic valve was not well visualized. The aortic root is dilated measuring 3.9cm. IVC Not well visulized. There is no pericardial effusion. CONCLUSIONS -------- 1. This was a technically difficult study with suboptimal views. 2. The left ventricular size is normal. 3. There is moderate concentric left ventricular hypertrophy. 4. Overall left ventricular systolic function is normal with, an EF between 65 - 70 %. 5. Basal inferoseptal LV wall motion is hypokinetic. 6. Mid anteroseptal LV wall motion is hypokinetic. 7. The right ventricle is mildly enlarged. 8. Lumason used 9. Mild tricuspid regurgitation present. 10. There is mild pulmonary hypertension. 11. There is no pericardial effusion. QUALITY TECHNICIAN [employer]: Kelley Kyle RDCS
--- NOTE | 2020-06-17 14:03 | P.CRDCN ---
History of Present Illness Consult date: 06/17/20 History of present illness: CHIEF COMPLAINT: Possible cardiac embolic stroke HISTORY OF PRESENT ILLNESS: This is a 69-year old female with a past medical history significant for atrial fibrillation, CVA, diabetes mellitus, hy pertension, hyperlipidemia, and pacemaker insertion. Patient follows in the office with Dr. Davies but has not been seen in the office since December 2018. We have been asked to see the patient in consultation for possible cardioembolic stroke. Patient examined this morning at the bedside in the emergency room. Patient is lethargic. She is on a BiPAP. She is unable to provide any history. I spoke with the patient's nurse who states the patient was brought in secondary to shortness of breath and lethargy. DIAGNOSTICS: EKG reveals sinus rhythm without signs of acute ischemia CT brain: Bilateral old infarcts in the right and left parietal lobes and the right occipital lobe. Right parietal infarct not change compared to old exam. The other infarcts appear new. Cerebral atrophy. Chest xray cardiomegaly. Mild pleural reaction right lung base. No heart failure seen. Laboratory data: WBC 12.2. Hemoglobin 8.0. Platelet count 200. Sodium 137. Potassium 5.6. BUN 56. Creatinine 0.65. BNP 2730. Troponin negative 1. Current home cardiac medications include metoprolol 50 mg twice a day, Eliquis 5 mg twice a day, Zocor 10 mg daily, lisinopril 20 mg daily, Lasix 20 mg daily REVIEW OF SYSTEMS: Unable to assess secondary to altered mental status PHYSICAL EXAM: VITAL SIGNS: Reviewed. GENERAL: Well-developed in no acute distress-lethargic on BiPAP. HEENT: Head is normocephalic. Sclerae anicteric. Mucous membranes of the mouth are moist. Neck supple. No JVD or thyromegaly LUNGS: Respirations even and unlabored. Lungs diminished. HEART: Regular rate and rhythm. S1 and S2 heard. ABDOMEN: Soft. Nondistended. Nontender. EXTREMITIES: Normal range of motion. No clubbing or cyanosis. Peripheral pulses intact. No lower extremity edema NEUROLOGIC: Lethargic ASSESSMENT: Metabolic encephalopathy Urinary tract infection Acute hypoxic respiratory failure, requiring BiPAP Acute CVA: ruled out per neurology History of CVA History of paroxysmal atrial fibrillation, on long-term anticoagulation with Eliquis Anemia, etiology unknown Diabetes mellitus, type II Hypertension Hyperlipidemia History of pacemaker insertion PLAN: Neurology following. Aspirin added to patients regimen per neurology. Plavix was not added to patient's regimen secondary to anemia Increase Lipitor to 40mg. Lipid panel ordered. Patient with anemia of unknown etiology. Hemoglobin 8.0. Patient's hemoglobin in January was 11.6. Will hold Eliquis at this time secondary to anemia. Recommend anemia workup Obtain 2-D echo to assess cardiac structure and function Further recommendations pending patient's course Nurse practitioner note has been reviewed by physician. Signing provider agrees with the documented findings, assessment, and plan of care. Past Medical History Past Medical History: Atrial Fibrillation, CVA/TIA, Diabetes Mellitus, Deep Vein Thrombosis (DVT), Eye Disorder, GERD/Reflux, Hyperlipidemia, Hypertension, Pneumonia Additional Past Medical History / Comment(s): HOSPITALIZED 03/02-03/08/17 FOR LETHARGY,UTI WITH METABOLIC ENCEPHALOPATHY. , HX OF CVA WITH RIGHT SIDED WEAKNESS ,PAST HX OF DECUBITUS ULCERS ON COCCYX & HEELS ,JUDSON LIFT USED TO MOVE TO WHEELCHAIR.,INCONTINENT., , STATES PT WILL ANSWER YES OR NO -SIMPLE QUESTIONS BUT UNSURE IF SHE COMPREHENDS., HX OF UTI'S. , BLIND RIGHT EYE, POOR VISION LEFT EYE., DIABETIC RETINOPATHY, HX OF SSS WITH PACEMAKER., PATIENT HAS GASTRIC PEG TUBE FOR FEEDINGS WHICH HAS BROKEN OFF AND HAS A SHORT TUBE. History of Any Multi-Drug Resistant Organisms: ESBL Date of last positivie culture/infection: 04/06/17 MDRO Source:: Urine Past Surgical History: Appendectomy, Back Surgery, Section, Cholecystectomy, Hernia Repair, Pacemaker, Tubal Ligation Additional Past Surgical History / Comment(s): RT EYE SURG for diabetic retinopathy, lumbar fusion, PAPO FOOT SPUR SURG. Picc insertion. Past Anesthesia/Blood Transfusion Reactions: No Reported Reaction Type of Cardiac Device: Permanent Pacemaker Device Placement Date:: march 2017 Past Psychological History: No Psychological Hx Reported Smoking Status: Never smoker Past Alcohol Use History: None Reported Past Drug Use History: None Reported - Past Family History Mother Family Medical History: Cancer, Diabetes Mellitus Additional Family Medical History / Comment(s): mother is . Father History Unknown: Yes Daughter(s) Family Medical History: Diabetes Mellitus Medications and Allergies Home Medications Medication Instructions Recorded Confirmed Type Magnesium Hydroxide [Milk of 2,400 ml PEG/G-TUBE DAILY PRN 03/02/17 06/16/20 History Magnesia] Apixaban [Eliquis] 5 mg PEG/G-TUBE BID 03/23/17 06/16/20 History lisinopriL [Prinivil] 20 mg PEG/G-TUBE DAILY 04/06/17 06/16/20 History Nitroglycerin Sl Tabs [Nitrostat] 0.4 mg SUBLINGUAL Q5M PRN tab 04/13/17 06/16/20 Rx Cholecalciferol [Vitamin D3] 4,000 unit PO DAILY@1400 07/26/18 06/16/20 History Famotidine [Pepcid] 20 mg PEG/G-TUBE DAILY@1400 07/26/18 06/16/20 History Furosemide [Lasix] 20 mg PEG/G-TUBE DAILY 07/26/18 06/16/20 History Metoprolol Tartrate [Lopressor] 50 mg PEG/G-TUBE BID 07/26/18 06/16/20 History Simvastatin [Zocor] 10 mg PEG/G-TUBE DAILY@1400 07/26/18 06/16/20 History metFORMIN HCL 1,000 mg PEG/G-TUBE BID 07/26/18 06/16/20 History Insulin Detemir [Levemir Flextouch] 44 units SQ DAILY 06/16/20 06/16/20 History Insulin Detemir [Levemir Flextouch] 48 units PEG/G-TUBE DAILY@1400 06/16/20 06/16/20 History Lactobacillus Acidophilus 1 tab PEG/G-TUBE DAILY 06/16/20 06/16/20 History [Acidophilus] Multivitamin with Iron 1 tab PEG/G-TUBE DAILY@1400 06/16/20 06/16/20 History [Multivitamins with Iron] sitaGLIPtin [Januvia] 100 mg PEG/G-TUBE DAILY 06/16/20 06/16/20 History Allergies Allergy/AdvReac Type Severity Reaction Status Date / Time No Known Allergies Allergy Verified 06/16/20 23:17 Physical Exam Vitals: Vital Signs Temp Pulse Resp BP Pulse Ox 06/17/20 10:43 60 16 145/55 98 06/17/20 07:35 64 06/17/20 07:24 62 06/17/20 06:50 60 16 108/49 96 06/17/20 04:10 99 F 71 16 109/55 100 06/17/20 02:15 63 18 94/67 100 06/17/20 01:30 65 17 126/42 100 06/17/20 00:15 60 19 119/51 100 06/16/20 23:36 63 16 123/94 06/16/20 22:52 60 19 105/31 97 06/16/20 22:00 60 18 99/47 96 06/16/20 21:24 66 26 H 133/46 96 06/16/20 21:07 126/115 06/16/20 20:54 67 16 91/68 99 06/16/20 20:36 100.0 F H 60 10 L 110/21 88 L Intake and Output 06/16/20 06/17/20 06/17/20 22:59 06:59 14:59 Other: Weight 145.15 kg Results 06/16/20 21:08 06/16/20 21:08 Cardiac Enzymes 06/16/20 06/16/20 Range/Units 21:08 21:08 AST 17 (14-36) U/L Lactate Dehydrogenase 453 (313-618) U/L Troponin I <0.012 (0.000-0.034) ng/mL Coagulation 06/16/20 Range/Units 21:08 PT 11.0 (9.0-12.0) sec APTT 22.4 (22.0-30.0) sec Lipids 06/17/20 Range/Units 08:31 Triglycerides 122 (<150) mg/dL Cholesterol 109 (<200) mg/dL HDL Cholesterol 27 L (40-60) mg/dL CBC 06/16/20 Range/Units 21:08 WBC 12.2 H (3.8-10.6) k/uL RBC 3.66 L (3.80-5.40) m/uL Hgb 8.0 L (11.4-16.0) gm/dL Hct 28.8 L (34.0-46.0) % Plt Count 200 (150-450) k/uL Comprehensive Metabolic Panel 06/16/20 Range/Units 21:08 Sodium 137 (137-145) mmol/L Potassium 5.6 H (3.5-5.1) mmol/L Chloride 97 L (98-107) mmol/L Carbon Dioxide 38 H (22-30) mmol/L BUN 57 H (7-17) mg/dL Creatinine 0.65 (0.52-1.04) mg/dL Glucose 136 H (74-99) mg/dL Calcium 8.9 (8.4-10.2) mg/dL AST 17 (14-36) U/L ALT 8 (4-34) U/L Alkaline Phosphatase 70 (38-126) U/L Total Protein 6.7 (6.3-8.2) g/dL Albumin 3.3 L (3.5-5.0) g/dL Current Medications Generic Name Dose Route Start Last Admin Trade Name Freq PRN Reason Stop Dose Admin Albuterol/Ipratropium 3 ml 06/17/20 08:00 06/17/20 07:24 Ipratropium-Albuterol 3 Ml Neb INHALATION 3 ml RT-QID BONNY Administration Albuterol/Ipratropium 3 ml 06/16/20 23:08 Ipratropium-Albuterol 3 Ml Neb INHALATION RT-Q4H PRN Shortness Of Breath Or Wheezing Aspirin 300 mg 06/16/20 23:15 06/16/20 23:29 Aspirin 300 Mg Supp RECTAL 300 mg DAILY BONNY Administration Aspirin 81 mg 06/17/20 09:00 Aspirin 81 Mg PO DAILY [facility] Atorvastatin Calcium 10 mg 06/17/20 14:00 Atorvastatin 10 Mg Tab PEG/G-TUBE DAILY@1400 BONNY Furosemide 20 mg 06/18/20 09:00 Furosemide 20 Mg Tab PEG/G-TUBE DAILY [facility] Ceftriaxone Sodium 1 gm/ 50 mls @ 100 mls/hr 06/17/20 11:00 06/17/20 11:37 Sodium Chloride IVPB 100 mls/hr Q12H BONNY Administration Sodium Chloride 1,000 mls @ 75 mls/hr 06/16/20 23:15 06/17/20 10:53 Saline 0.9% IV 100 mls/hr .[id number] BONNY Administration Insulin Aspart 0 unit 06/17/20 12:00 Insulin Aspart (Novolog) 100 Unit/Ml Vial SQ Q6HR [facility] Protocol Lisinopril 20 mg 06/18/20 09:00 Lisinopril 20 Mg Tab PEG/G-TUBE DAILY [facility] Methylprednisolone Sodium Succinate 60 mg 06/17/20 00:00 06/17/20 06:11 Methylprednisolone Sod Succi 125 Mg/2 Ml Vial IV 60 mg Q6HR BONNY Administration Metoprolol Tartrate 50 mg 06/17/20 21:00 Metoprolol Tartrate 50 Mg Tab PEG/G-TUBE BID BONNY Nitroglycerin 0.4 mg 06/17/20 11:49 Nitroglycerin Sl Tabs 0.4 Mg Tab SUBLINGUAL Q5M PRN Chest Pain Pantoprazole Sodium 40 mg 06/17/20 12:00 Pantoprazole 40 Mg/10 Ml Vial IVP DAILY BONNY Intake and Output 06/16/20 06/17/20 06/17/20 22:59 06:59 14:59 Other: Weight 145.15 kg 06/16/20 21:08 06/16/20 21:08
--- NOTE | 2020-06-17 14:56 | US ---
EXAMINATION TYPE: US carotid duplex BILAT DATE OF EXAM: 06/17/2020 COMPARISON: US carotid 02/09/2017 CLINICAL HISTORY: Stenosis. Pt unresponsive EXAM MEASUREMENTS: RIGHT: Peak Systolic Velocity (PSV) cm/sec ----- Right CCA: 40.9 ----- Right ICA: 86.6 ----- Right ECA: 121.0 ICA/CCA ratio: 2.1 RIGHT: End Diastole cm/sec ----- Right CCA: 6.9 ----- Right ICA: 23.2 ----- Right ECA: 0.0 LEFT: Peak Systolic Velocity (PSV) cm/sec ----- Left CCA: 43.3 ----- Left ICA: 149.6 ----- Left ECA: 115.1 ICA/CCA ratio: 3.5 LEFT: End Diastole cm/sec ----- Left CCA: 7.8 ----- Left ICA: 27.4 ----- Left ECA: 0.0 VERTEBRALS (direction of flow): Right Vertebral: Antegrade Left Vertebral: Antegrade IMPRESSION: 1. Suboptimal evaluation of the carotid arteries due to patient body habitus, patient condition, and tortuous internal carotid arteries. 2. Low flow (< 45 cm/sec) of the bilateral common carotid arteries may be secondary to poor cardiac o utput. 3. Increased flow parameters of the bilateral internal carotid arteries suggest 50-69% stenosis, shukla seun may be artifactual due to tortuosity. Recommend correlation with CTA examination of the neck. Criteria for Assigning % of Stenosis / Diameter reduction (Estimation based on the indirect measurements of the internal carotid artery velocities (ICA PSV). 1. Normal (no stenosis)=ICA PSV < 125 cm/s: ratio < 2.0: ICA EDV<40 cm/s. 2. Less than 50% stenosis=ICA PSV < 125 cm/s: ratio < 2.0: ICA EDV<40 cm/s. 3. 50 to 69% stenosis=ICA PSV of 125 to 230 cm/s: ration 2.0 ? 4.0: ICA EDV 40-100 cm/s. 4. Greater than 70% stenosis to near occlusion= ICA PSV > 230 cm/s: ratio > 4.0: ICA EDV > 100 cm/s. 5. Near occlusion= ICA PSV velocities may be low or undetectable: variable ratio and ICA EDV. 6. Total occlusion=unable to detect flow.
[2020-06-17 16:14] LABS: Anisocytosis Slight; HCT 27.7 % (34.0-46.0); HGB 7.8 gm/dL (11.4-16.0); Hypochromasia Marked; MCH 22.6 pg (25.0-35.0); MCHC 28.1 g/dL (31.0-37.0); MCV 80.2 fL (80.0-100.0); Mean Platelet Volume 9.5; Microcytosis Slight; Platelet Count 160 k/uL (150-450); Poikilocytosis Marked; RBC 3.45 m/uL (3.80-5.40); RDW 19.1 % (11.5-15.5); WBC 10.2 k/uL (3.8-10.6)
--- NOTE | 2020-06-17 18:00 | P.CNPUL ---
History of Present Illness Consult date: 06/17/20 Requesting physician: Moise E Bentley Reason for consult: other Chief complaint: Altered mental status History of present illness: 69-year-old white female patient with multiple chronic medical conditions, including atrial fibrillation, previous history of CVA with right-sided hemiplegia, dysphagia, status post PEG tube placement in 2017, diabetes mellitus, hypertension, hyperlipidemia, morbid obesity, difficulty with mobility, patient is a long term resident, she has a legal guardian, and were told that she is nonverbal at her baseline. Patient was brought into the emergency department on 06/16/2020 for evaluation of altered mental status. Apparently there was a concern for possible aspiration. Patient was febrile on presentation with a temp of 100F, she was hypoxic with a pulse ox of 88% on 4 L. Lab work revealed leukocytosis with a white count of 12.8, hemoglobin was 8, troponin was negative at less than 0.012, proBNP was 2730, urinalysis was suspicious for infection. Coronavirus rapid screen was negative. Chest x-ray revealed cardiomegaly, mild pleural reaction at the right lung base, some coarsening of the lung markings. Left axillary pacemaker was noted. Was a slight blunting of the right costophrenic angle. Brain CT showed bilateral old infarcts in the right and left parietal lobes and right occipital lobe. There was cerebral atrophy. EKG showed normal sinus rhythm with sinus arrhythmia with evidence of septal infarct of undetermined age. She was quite lethargic, blood gas revealed pO2 of 296, pCO2 of 89, and pH of 7.23, this was done on 100% FiO2. Patient is placed on AVAPS, currently with FiO2 of 35%. She was started on Rocephin for possibility of urinary tract infection, she is on IV steroids, she was fluid resuscitated for possibility of urinary tract infection with sepsis. Urine drug screen was negative. Patient continued to have altered mentation, neurology evaluation was completed, please refer to their consultation. Echocardiogram showed moderate concentric LVH, EF between 65-70%, mild TR, mild pulmonary hypertension, with right-sided pressures of 42 mmHg. Carotid Doppler completed showing suboptimal evaluation due to large body habitus, patient condition and tortuous internal carotid arteries. Increased flow parameters on the bilateral internal carotid artery suggested 50-69% stenosis. Today patient was seen by us for the first time in evaluation and she is stuporous, remains on AVAPS mode of an NIPPV ventilation. She was switched over to BiPAP mode of ventilation with pressures of 14 and 5 and FiO2 of 35%, repeat blood gas was ordered, and within about 5-10 minutes she is already starting to become more responsive. She is achieving pressures of 350-400 mL, minute ventilation of 5-6 L/m, with a respiratory rate of 17, patient is starting to open eyes. Review of Systems All systems: negative Constitutional: Denies chills, Denies fever Eyes: denies blurred vision, denies pain Ears, nose, mouth and throat: Denies headache, Denies sore throat Cardiovascular: Denies chest pain, Denies shortness of breath Respiratory: Denies cough Gastrointestinal: Denies abdominal pain, Denies diarrhea, Denies nausea, Denies vomiting Genitourinary: Denies dysuria, Denies hematuria Musculoskeletal: Denies myalgias Integumentary: Denies pruritus, Denies rash Neurological: Reports as per HPI, Reports aphasia, Reports balance difficulties, Reports change in mentation, Denies numbness, Denies weakness Psychiatric: Denies anxiety, Denies depression Endocrine: Denies fatigue, Denies weight change Past Medical History Past Medical History: Atrial Fibrillation, CVA/TIA, Diabetes Mellitus, Deep Vein Thrombosis (DVT), Eye Disorder, GERD/Reflux, Hyperlipidemia, Hypertension, Pneumonia Additional Past Medical History / Comment(s): HOSPITALIZED 03/02-03/08/17 FOR LETHARGY,UTI WITH METABOLIC ENCEPHALOPATHY. , HX OF CVA WITH RIGHT SIDED WEAKNESS ,PAST HX OF DECUBITUS ULCERS ON COCCYX & HEELS ,JUDSON LIFT USED TO MO VE TO WHEELCHAIR.,INCONTINENT., , STATES PT WILL ANSWER YES OR NO -SIMPLE QUESTIONS BUT UNSURE IF SHE COMPREHENDS., HX OF UTI'S. , BLIND RIGHT EYE, POOR VISION LEFT EYE., DIABETIC RETINOPATHY, HX OF SSS WITH PACEMAKER., PATIENT HAS GASTRIC PEG TUBE FOR FEEDINGS WHICH HAS BROKEN OFF AND HAS A SHORT TUBE. History of Any Multi-Drug Resistant Organisms: ESBL Date of last positivie culture/infection: 04/06/17 MDRO Source:: Urine Past Surgical History: Appendectomy, Back Surgery, Section, Cholecystectomy, Hernia Repair, Pacemaker, Tubal Ligation Additional Past Surgical History / Comment(s): RT EYE SURG for diabetic retinopathy, lumbar fusion, PAPO FOOT SPUR SURG. Picc insertion. Past Anesthesia/Blood Transfusion Reactions: No Reported Reaction Type of Cardiac Device: Permanent Pacemaker Device Placement Date:: march 2017 Past Psychological History: No Psychological Hx Reported Smoking Status: Never smoker Past Alcohol Use History: None Reported Past Drug Use History: None Reported - Past Family History Mother Family Medical History: Cancer, Diabetes Mellitus Additional Family Medical History / Comment(s): mother is . Father History Unknown: Yes Daughter(s) Family Medical History: Diabetes Mellitus Medications and Allergies Home Medications Medication Instructions Recorded Confirmed Type Magnesium Hydroxide [Milk of 2,400 ml PEG/G-TUBE DAILY PRN 03/02/17 06/16/20 Hi story Magnesia] Apixaban [Eliquis] 5 mg PEG/G-TUBE BID 03/23/17 06/16/20 History lisinopriL [Prinivil] 20 mg PEG/G-TUBE DAILY 04/06/17 06/16/20 History Nitroglycerin Sl Tabs [Nitrostat] 0.4 mg SUBLINGUAL Q5M PRN tab 04/13/17 06/16/20 Rx Cholecalciferol [Vitamin D3] 4,000 unit PO DAILY@1400 07/26/18 06/16/20 History Famotidine [Pepcid] 20 mg PEG/G-TUBE DAILY@1400 07/26/18 06/16/20 History Furosemide [Lasix] 20 mg PEG/G-TUBE DAILY 07/26/18 06/16/20 History Metoprolol Tartrate [Lopressor] 50 mg PEG/G-TUBE BID 07/26/18 06/16/20 History Simvastatin [Zocor] 10 mg PEG/G-TUBE DAILY@1400 07/26/18 06/16/20 History metFORMIN HCL 1,000 mg PEG/G-TUBE BID 07/26/18 06/16/20 History Insulin Detemir [Levemir Flextouch] 44 units SQ DAILY 06/16/20 06/16/20 History Insulin Detemir [Levemir Flextouch] 48 units PEG/G-TUBE DAILY@1400 06/16/20 06/16/20 History Lactobacillus Acidophilus 1 tab PEG/G-TUBE DAILY 06/16/20 06/16/20 History [Acidophilus] Multivitamin with Iron 1 tab PEG/G-TUBE DAILY@1400 06/16/20 06/16/20 History [Multivitamins with Iron] sitaGLIPtin [Januvia] 100 mg PEG/G-TUBE DAILY 06/16/20 06/16/20 History Allergies Allergy/AdvReac Type Severity Reaction Status Date / Time No Known Allergies Allergy Verified 06/16/20 23:17 Physical Exam Vitals: Vital Signs Temp Pulse Pulse Resp BP BP Pulse Ox 06/17/20 16:57 18 100 06/17/20 16:20 92 16 06/17/20 16:10 95 16 06/17/20 15:38 97.8 F 97 30 H 130/91 92 L 06/17/20 14:00 77 16 132/62 100 06/17/20 13:12 73 06/17/20 13:01 72 06/17/20 10:43 60 16 145/55 98 06/17/20 07:35 64 06/17/20 07:24 62 06/17/20 06:50 60 16 108/49 96 06/17/20 04:10 99 F 71 16 109/55 100 06/17/20 02:15 63 18 94/67 100 06/17/20 01:30 65 17 126/42 100 06/17/20 00:15 60 19 119/51 100 06/16/20 23:36 63 16 123/94 06/16/20 22:52 60 19 105/31 97 06/16/20 22:00 60 18 99/47 96 06/16/20 21:24 66 26 H 133/46 96 06/16/20 21:07 126/115 06/16/20 20:54 67 16 91/68 99 06/16/20 20:36 100.0 F H 60 10 L 110/21 88 L GENERAL EXAM: Unresponsive, 69-year-old morbidly obese white female, on AVAPS mode of NIIPV, currently with FiO2 of 35%, switched over to BiPAP support pressures of 14/5 and FiO2 35% HEAD: Normocephalic/atraumatic. EYES: Normal reaction of pupils, equal size. Conjunctiva pink, sclera white. NOSE: Clear with pink turbinates. THROAT: No erythema or exudates. NECK: No masses, no JVD, no thyroid enlargement, no adenopathy. CHEST: No chest wall deformity. Symmetrical expansion. LUNGS: Equal air entry with no crackles, wheeze, rhonchi or dullness. CVS: Regular rate and rhythm, normal S1 and S2, no gallops, no murmurs, no rubs ABDOMEN: Soft, nontender. No hepatosplenomegaly, normal bowel sounds, no guarding or rigidity. PEG tube in place EXTREMITIES: No clubbing, no edema, no cyanosis, 2+ pulses and upper and lower extremities. MUSCULOSKELETAL: Muscle strength and tone normal. SPINE: No scoliosis or deformity SKIN: No rashes CENTRAL NERVOUS SYSTEM: Unresponsive, on BIPAP No focal deficits, tone is normal in all 4 extremities. Results - Laboratory Findings CBC and BMP: 06/17/20 15:48 06/16/20 21:08 ABG ABG pH 7.23 (7.35-7.45) L 06/16/20 21: ABG pCO2 89 mmHg (35-45) H* 06/16/20 21: ABG pO2 296 mmHg (83-108) H 06/16/20 21:20 ABG O2 Saturation 100.0 % (94-97) H 06/16/20 21:20 PT/INR, D-dimer PT 11.0 sec (9.0-12.0) 06/16/20 21:08 INR 1.1 (<1.2) 06/16/20 21:08 Abnormal lab findings: Abnormal Labs 06/16/20 06/16/20 06/16/20 21:08 21:08 21:08 WBC 12.2 H RBC 3.66 L Hgb 8.0 L Hct 28.8 L MCV 78.6 L D MCH 21.9 L MCHC 27.9 L RDW 18.9 H Neutrophils # (Manual) 9.60 H Metamyelocytes # (Man) 0.12 H Nucleated RBCs 1 H ABG pH ABG pCO2 ABG pO2 ABG HCO3 ABG Total CO2 ABG O2 Saturation Potassium 5.6 H Chloride 97 L Carbon Dioxide 38 H BUN 57 H Glucose 136 H POC Glucose (mg/dL) C-Reactive Protein 19.0 H Albumin 3.3 L HDL Cholesterol Urine Appearance Cloudy H Urine Blood Moderate H Urine Nitrite Positive H Ur Leukocyte Esterase Large H Urine WBC 34 H Urine WBC Clumps Many H Urine Bacteria Moderate H Hyaline Casts 8 H Urine Mucus Rare H 06/16/20 06/16/20 06/17/20 21:20 21:21 08:31 WBC RBC Hgb Hct MCV MCH MCHC RDW Neutrophils # (Manual) Metamyelocytes # (Man) Nucleated RBCs ABG pH 7.23 L ABG pCO2 89 H* ABG pO2 296 H ABG HCO3 38 H ABG Total CO2 40 H ABG O2 Saturation 100.0 H Potassium Chloride Carbon Dioxide BUN Glucose POC Glucose (mg/dL) 140 H C-Reactive Protein Albumin HDL Cholesterol 27 L Urine Appearance Urine Blood Urine Nitrite Ur Leukocyte Esterase Urine WBC Urine WBC Clumps Urine Bacteria Hyaline Casts Urine Mucus 06/17/20 15:48 WBC RBC 3.45 L Hgb 7.8 L Hct 27.7 L MCV MCH 22.6 L MCHC 28.1 L RDW 19.1 H Neutrophils # (Manual) Metamyelocytes # (Man) Nucleated RBCs ABG pH ABG pCO2 ABG pO2 ABG HCO3 ABG Total CO2 ABG O2 Saturation Potassium Chloride Carbon Dioxide BUN Glucose POC Glucose (mg/dL) C-Reactive Protein Albumin HDL Cholesterol Urine Appearance Urine Blood Urine Nitrite Ur Leukocyte Esterase Urine WBC Urine WBC Clumps Urine Bacteria Hyaline Casts Urine Mucus - Diagnostic Findings Chest x-ray: report reviewed, image reviewed Additional studies: Brain CT, EKG carotid Doppler results reviewed Assessment and Plan Plan: Assessment: #1. Acute on chronic hypercapnic respiratory failure, related to acute urinary tract infection #2. Chronic hypercapnic respiratory failure related to obesity hypoventilation syndrome, possibility of obstructive sleep apnea #3. History of multiple old strokes, and bilateral parietal and right occipital, with history of right-sided weakness, dysphagia, and aphasia #4. History of dysphagia, status post PEG tube placement #5. Patient is nonverbal and bedbound, and is a resident of a local [facility]. She has a legal guardian #6. Chronic anemia #7. Hx of atrial fibrillation, currently in sinus rhythm, on chronic anticoagulation with Eliquis, history of permanent pacemaker implantation #8. History of hypertension #9. Hyperlipidemia #10. 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 History of lumbar fusion #12. Morbid obesity #13. Previous history of ESBL urinary tract infection Plan: Patient was switched over to BIPAP mode of NIPPV from AVAPS, achieving tidal volumes of about 350-400, we'll repeat a blood gas in 1/2 hour, we'll switch antibiotic coverage from Rocephin to meropenem in view of patient's history of past urinary tract infection with ESBL organism. Awaiting final urinary culture. CODE STATUS needs to be addressed with her legal guardian, in view of her multiple chronic medical problems, quite debilitated physical condition, bedbound, nonverbal, resident of a local [facility], and we need to clarify how aggressive the legal guardian recommends the medical care to be, for now continue supportive care, we'll review repeat blood gases, patient is ready s tarting to wake up. If the legal guardian recommends full code, patient will need to be transferred to the intensive care unit. Further recommendations to follow, awaiting repeat blood gas. I performed a history & physical examination of the patient and discussed their management with my nurse practitioner, Yoanna Ace. I reviewed the nurse practitioner's note and agree with the documented findings and plan of care. Lung sounds are positive for diminished breath sounds. The findings and the impression was discussed with the patient. I attest to the documentation by the nurse practitioner. Time with Patient: Greater than 30
[2020-06-17] MEDS: ASPIRIN 81 MG PO SCH (18:02)
[2020-06-17] MEDS: ASPIRIN 300 MG SUPP RECTAL SCH (18:02)
[2020-06-17] MEDS: INSULIN ASPART (NovoLOG) 100 UNIT/ML VIAL SQ SCH ×3 (18:02→23:14)
[2020-06-17] MEDS: ATORVASTATIN 40 MG TAB PEG/G-TUBE SCH (18:03)
[2020-06-17] MEDS: PANTOPRAZOLE 40 MG/10 ML VIAL IVP SCH (18:03)
[2020-06-17 18:18] LABS: ABG Base Excess 2.9 mmol/L; ABG HCO3 29 mmol/L (21-25); ABG Oxygen Saturation 99.8 % (94-97); ABG PCO2 56 mmHg (35-45); ABG PH 7.32 (7.35-7.45); ABG PO2 116 mmHg (83-108); ABG TCO2 31 mmol/L (19-24); Allen Test Performed? Yes
--- NOTE | 2020-06-17 20:04 | EEG ---
ELECTROENCEPHALOGRAM REPORT DATE OF SERVICE: 06/17/2020. CLINICAL HISTORY: This is a 69-year-old female with multifocal strokes. She presented to the emergency department from her nursing facility because of altered mental status. This video EEG is obtained to evaluate for seizure and epileptiform activity. RELEVANT MEDICATION: The patient is not on any antiepileptic drug. EEG TYPE: A routine 21-channel EEG was performed with video using the 10/20 electrode placement system. DESCRIPTION: Wakefulness is only obtained. There is no posterior-dominant rhythm seen. During wakefulness, the background consists of nonrhythmic, low to moderate voltage, diffuse 3 to 4 hertz delta activity and sometimes intermixed with theta activity. There is no physiological stage II sleep seen. Interictal and ictal: None. ACTIVATION PROCEDURES: Photic stimulation is performed and no photic driving was seen. Hyperventilation is not performed. CLINICAL INTERPRETATION: This is an abnormal routine EEG. The background slowing is suggestive of moderate to severe encephalopathy of unspecified etiology. There are no focal slowing, epileptiform activity or seizure during the study. Clinical correlation is recommended. MMWILMA / JENNIFERN: [id number] / MTDD
[2020-06-17] MEDS: methylPREDNISolone SOD SUCCI 40 MG/ML 1 ML VIAL IV SCH (20:27)
[2020-06-17] MEDS: MEROPENEM 1 GM in SODIUM CHLORIDE 0.9% 100 ML IVPB SCH (20:27)
[2020-06-17] MEDS: METOPROLOL TARTRATE 50 MG TAB PEG/G-TUBE SCH (20:28)
[2020-06-17 20:59] LABS: Glucose,Whole Blood 246 mg/dL (75-99)
[2020-06-17] MEDS ORDERED: ATORVASTATIN 40 MG TAB PO SCH (21:00)
[2020-06-17 23:14] LABS: Glucose,Whole Blood 265 mg/dL (75-99)
[2020-06-18] MEDS: MEROPENEM 1 GM in SODIUM CHLORIDE 0.9% 100 ML IVPB SCH ×3 (02:11→17:42)
[2020-06-18] MEDS: SODIUM CHLORIDE 0.9% 1,000 ML IV SCH ×2 (05:47→23:39)
[2020-06-18 06:05] LABS: Glucose,Whole Blood 268 mg/dL (75-99)
[2020-06-18] MEDS: INSULIN ASPART (NovoLOG) 100 UNIT/ML VIAL SQ SCH ×4 (06:08→23:40)
[2020-06-18] MEDS: PANTOPRAZOLE 40 MG/10 ML VIAL IVP SCH (08:45)
[2020-06-18] MEDS: methylPREDNISolone SOD SUCCI 40 MG/ML 1 ML VIAL IV SCH ×2 (08:45→20:26)
[2020-06-18] MEDS: IPRATROPIUM-ALBUTEROL 3 ML NEB INHALATION SCH ×4 (09:21→21:06)
[2020-06-18 10:09] LABS: Anisocytosis Slight; HCT 26.6 % (34.0-46.0); HGB 7.8 gm/dL (11.4-16.0); Hypochromasia Marked; MCH 22.9 pg (25.0-35.0); MCHC 29.5 g/dL (31.0-37.0); MCV 77.5 fL (80.0-100.0); Microcytosis Slight; Platelet Count 171 k/uL (150-450); Poikilocytosis Marked; RBC 3.43 m/uL (3.80-5.40); RDW 19.5 % (11.5-15.5)
--- NOTE | 2020-06-18 10:45 | P.PN ---
Subjective This is a pleasant 69 years old female with past medical history of stroke since 2017 with dysphagia status post PEG tube. Other medical problems including atrial fibrillation, DVT, GERD, hyperlipidemia, hypertension. Presents because of altered mental status and low-grade fever. Patient could not provide information and were obtained from the chart. As per documentation was presented because of altered mental status with Schiller respiration and there was concerns for aspiration. He came from [facility]. Patient does not follow, and currently. He had a temperature of 100.0 upon admission. He was also hypoxic 88% on 4 L oxygen dependent and a cannula, came up to 99% on 10 L Labs showing mild leukocytosis of 12.8, hemoglobin is 8.0, platelet is normal. INR is 1.1, ABG showing low pH of 7.2 and high pCO2 of 89 and bicarb of 38, oxygen is 296. Potassium slightly elevated at 5.6, creatinine is normal 0.65. Liver enzymes not elevated. Troponin is negative less than 0.012. C-reactive protein is slightly elevated at 19, lactate dehydrogenase is normal at 453. ProBNP is 2730. Urinalysis is suspicious for infection. Urinary tract screen is negative Coronal virus not detected EKG showed normal sinus rhythm at [address]-T changes CT of the brain: Bilateral old infarcts in the right and left parietal lobes and the right occipital lobe. Right parietal infarct not change compared to old exam. The other infarcts appear new. Cerebral atrophy Patient already has been evaluated by neurologist recommended cardiology evaluation for possible cardioembolic source In the emergency room patient was started on ceftriaxone, Solu-Medrol 60 mg and he received 2 L of normal saline and then continued at 100 mL per hour. Also he was started on BiPAP there was concern for anemia with a low hemoglobin at 8.0. Review of Systems: NA 06/18/2020 Patient still nonverbal she opens eyes to verbal and tactile stimuli but she does not follow command. She still needed and BiPAP this morning. She still h ave altered mental status EEG showing moderate to severe encephalopathy but no epileptiform discharge. Carotid duplex showing bilateral carotid artery stenosis about 50-69%. Echocardiogram showing ejection fraction of 65-70% with LV wall hypokinesia. Urine culture is growing gram-negative bacilli and currently she is on meropenem for possible ESBL Eliquis is still on hold because of possible GI bleed and significant anemia. Anemia workup still undergoing, occult blood in stool is pending. Cardiology and neurology on the case for her altered mental status and multiple strokes to rule out cardiac source of emboli. Covid test is negative I discussed the case with her daughter miss PURVIS at [phone]. Review of system: N/a Active Medications Generic Name Dose Route Start Last Admin Trade Name Freq PRN Reason Stop Dose Admin Albuterol/Ipratropium 3 ml 06/17/20 08:00 06/18/20 09:21 Ipratropium-Albuterol 3 Ml Neb INHALATION 3 ml RT-QID BONNY Administration Albuterol/Ipratropium 3 ml 06/16/20 23:08 Ipratropium-Albuterol 3 Ml Neb INHALATION RT-Q4H PRN Shortness Of Breath Or Wheezing Aspirin 300 mg 06/16/20 23:15 06/17/20 18:02 Aspirin 300 Mg Supp RECTAL Not Given DAILY BONNY Aspirin 81 mg 06/17/20 09:00 06/17/20 18:02 Aspirin 81 Mg PO Not Given DAILY BONNY Atorvastatin Calcium 40 mg 06/17/20 14:00 06/17/20 18:03 Atorvastatin 40 Mg Tab PEG/G-TUBE Not Given DAILY@1400 BONNY Furosemide 20 mg 06/18/20 09:00 Furosemide 20 Mg Tab PEG/G-TUBE DAILY BONNY Sodium Chloride 1,000 mls @ 75 mls/hr 06/16/20 23:15 06/18/20 05:47 Saline 0.9% IV 75 mls/hr .[id number] BONNY Administration Meropenem 1 gm/ Sodium 100 mls @ 33.3 mls/hr 06/17/20 18:00 06/18/20 02:11 Chloride IVPB 33.3 mls/hr Q8H BONNY Administration Protocol Insulin Aspart 0 unit 06/17/20 12:00 06/18/20 06:08 Insulin Aspart (Novolog) 100 Unit/Ml Vial SQ 8 unit Q6HR BONNY Administration Protocol Lisinopril 20 mg 06/18/20 09:00 Lisinopril 20 Mg Tab PEG/G-TUBE DAILY BONNY Methylprednisolone Sodium Succinate 40 mg 06/17/20 21:00 06/18/20 08:45 Methylprednisolone Sod Succi 40 Mg/Ml 1 Ml Vial IV 40 mg Q12HR BONNY Administration Metoprolol Tartrate 50 mg 06/17/20 21:00 06/17/20 20:28 Metoprolol Tartrate 50 Mg Tab PEG/G-TUBE 50 mg BID BONNY Administration Nitroglycerin 0.4 mg 06/17/20 11:49 Nitroglycerin Sl Tabs 0.4 Mg Tab SUBLINGUAL Q5M PRN Chest Pain Pantoprazole Sodium 40 mg 06/17/20 12:00 06/18/20 08:45 Pantoprazole 40 Mg/10 Ml Vial IVP 40 mg DAILY BONNY Administration Objective - Vital Signs Vital signs: Vital Signs Temp 98.6 F 06/18/20 08:40 Pulse 86 06/18/20 09:22 Resp 16 06/18/20 08:40 BP 147/63 06/18/20 08:40 Pulse Ox 100 06/18/20 08:40 Intake & Output 06/17/20 06/18/20 06/18/20 18:59 06:59 18:59 Intake Total 100 0 Output Total 200 Balance -100 0 Weight 145.15 kg 120.5 kg 120.5 kg Intake: Intake, IV Titration 100 Amount Meropenem 1 gm In Sodium 100 Chloride 0.9% 100 ml @ 33 .3 mls/hr IVPB Q8H BONNY Rx #:[id number] Oral 0 Output: Urine 200 Other: Voiding Method Indwelling Catheter - Exam -GENERAL: The patient is nonverbal. Does not follow commands. Obese HEENT: Pupils are round and equally reacting to light. EOMI. No scleral icterus. No conjunctival pallor. Normocephalic, atraumatic. No pharyngeal erythema. No thyromegaly. CARDIOVASCULAR: S1 and S2 present. No murmurs, rubs, or gallops. -PULMONARY: Chest is clear to auscultation, bilateral scattered wheezing -ABDOMEN: Soft, nontender, nondistended, normoactive bowel sounds. No palpable organomegaly. PEG tube is in place MUSCULOSKELETAL: No joint swelling or deformity. EXTREMITIES: No cyanosis, clubbing, or pedal edema. NEUROLOGICAL: Gross neurological examination did not reveal any focal deficits. SKIN: No rashes. No petechiae - Labs CBC & Chem 7: 06/17/20 15:48 06/16/20 21:08 Labs: Abnormal Lab Results - Last 24 Hours (Table) 06/17/20 06/17/20 06/17/20 Range/Units 08:31 15:48 18:15 RBC 3.45 L (3.80-5.40) m/uL Hgb 7.8 L (11.4-16.0) gm/dL Hct 27.7 L (34.0-46.0) % MCH 22.6 L (25.0-35.0) pg MCHC 28.1 L (31.0-37.0) g/dL RDW 19.1 H (11.5-15.5) % ABG pH 7.32 L (7.35-7.45) ABG pCO2 56 H (35-45) mmHg ABG pO2 116 H (83-108) mmHg ABG HCO3 29 H (21-25) mmol/L ABG Total CO2 31 H (19-24) mmol/L ABG O2 Saturation 99.8 H (94-97) % POC Glucose (mg/dL) (75-99) mg/dL HDL Cholesterol 27 L (40-60) mg/dL 06/17/20 06/17/20 06/18/20 Range/Units 20:55 23:12 06:02 RBC (3.80-5.40) m/uL Hgb (11.4-16.0) gm/dL Hct (34.0-46.0) % MCH (25.0-35.0) pg MCHC (31.0-37.0) g/dL RDW (11.5-15.5) % ABG pH (7.35-7.45) ABG pCO2 (35-45) mmHg ABG pO2 (83-108) mmHg ABG HCO3 (21-25) mmol/L ABG Total CO2 (19-24) mmol/L ABG O2 Saturation (94-97) % POC Glucose (mg/dL) 246 H 265 H 268 H (75-99) mg/dL HDL Cholesterol (40-60) mg/dL Microbiology - Last 24 Hours (Table) 06/16/20 23:35 Blood Culture - Preliminary Blood No Growth after 24 hours 06/16/20 21:08 Urine Culture - Preliminary Urine,Voided Gram Neg Bacilli Assessment and Plan Assessment: Acute hypoxic, hypercapnic respiratory failure Acute COPD exacerbation Metabolic encephalopathy secondary to above Acute urinary tract infection Hypochromic microcytic Anemia, rule out GI bleed Multiple strokes. Bilateral cerebral infarcts, they look old however they are new compared to old exam especially in the right occipital lobe and the left parietal lobe. Rule out cardiac source history of stroke since 2017 with dysphagia status post PEG tube Hypertension Hyperlipidemia Diabetes mellitus History of paroxysmal atrial fibrillation, was on Eliquis History of stroke Plan: This is a pleasant 69 years old female who presents with multiple problems including COPD exacerbation and hypercapnia. AMS. UTI. Multiple several str okes.Continue with aspirin and Lipitor. I would consider restarting anticoagulation in hemoglobin stabilized. Check iron studies and occult blood in stool . Continue with steroids, bronchodilator. Continue with antibiotic. Continue with BiPAP as needed with pulmonary consult. Follow-up recommendation by cardiology and neurology , follow-up neurology workup off EEG, carotid duplex and echocardiogram . Continue with gentle hydration Labs and medication were reviewed.. Continue same treatment. Continue with symptomatic treatment. Resume home medication. Monitor lytes and vitals. DVT and GI prophylaxis. Further recommendations depends on the clinical course of the patient DVT prophylaxis: Eliquis IS HELD FOR ANEMIA GI Prophylaxis: ppi Prognosis is guarded
[2020-06-18 10:58] LABS: African American GFR (CKD) >90 (>60 ml/min/1.73 sqM); Anion Gap 2 mmol/L; Blood Urea Nitrogen 43 mg/dL (7-17); Calcium 8.7 mg/dL (8.4-10.2); Carbon Dioxide 33 mmol/L (22-30); Chloride 106 mmol/L (98-107); Glucose 195 mg/dL (74-99); Non-African American GFR(CKD) >90 (>60 ml/min/1.73 sqM); Potassium 5.5 mmol/L (3.5-5.1); Sodium 141 mmol/L (137-145)
[2020-06-18 12:05] LABS: Glucose,Whole Blood 204 mg/dL (75-99)
[2020-06-18] MEDS: FUROSEMIDE 20 MG TAB PEG/G-TUBE SCH (12:07)
[2020-06-18] MEDS: lisinopriL 20 MG TAB PEG/G-TUBE SCH (12:07)
[2020-06-18] MEDS: METOPROLOL TARTRATE 50 MG TAB PEG/G-TUBE SCH ×2 (12:07→20:26)
[2020-06-18] MEDS: ASPIRIN 81 MG PO SCH (12:18)
[2020-06-18] MEDS: ATORVASTATIN 40 MG TAB PEG/G-TUBE SCH (12:19)
[2020-06-18 13:03] LABS: Myelocytes # (M) 0.11 k/uL (0)
[2020-06-18 13:08] LABS: Lymphocytes # (M) 2.69 k/uL (1.0-4.8); Monocytes # (M) 1.57 k/uL (0-1.0); Neutrophils # (M) 7.06 k/uL (1.3-7.7); Neutrophils % (M) 63 %; Nucleated Red Blood Cells 1 /100 WBC (0-0); Total Cells Counted 200; WBC 11.2 k/uL (3.8-10.6)
--- NOTE | 2020-06-18 13:10 | P.PN ---
Subjective Progress Note Date: 06/18/20 CHIEF COMPLAINT: Possible cardiac embolic stroke HISTORY OF PRESENT ILLNESS: Patient examined this morning at the bedside. Patient remains lethargic. She is maintaining atrial fibrillation with controlled ventricular response. Hemoglobin 7.8 today. Vital signs stable. Echocardiogram completed revealed ejection fraction 65-70%, LV wall hypokinesis, mild tricuspid regurgitation and mild pulmonary hypertension. PHYSICAL EXAM: VITAL SIGNS: Reviewed. GENERAL: Well-developed in no acute distress-lethargic on BiPAP. HEENT: Head is normocephalic. Sclerae anicteric. Mucous membranes of the mouth are moist. Neck supple. No JVD or thyromegaly LUNGS: Respirations even and unlabored. Lungs diminished. HEART: Irregular rate and rhythm. S1 and S2 heard. ABDOMEN: Soft. Nondistended. Nontender. EXTREMITIES: Normal range of motion. No clubbing or cyanosis. Peripheral pulses intact. No lower extremity edema NEUROLOGIC: Lethargic ASSESSMENT: Metabolic encephalopathy Urinary tract infection Acute hypoxic respiratory failure, requiring BiPAP Acute CVA: ruled out per neurology History of CVA History of paroxysmal atrial fibrillation, on long-term anticoagulation with Eliquis Anemia, etiology unknown Diabetes mellitus, type II Hypertension Hyperlipidemia History of pacemaker insertion PLAN: Neurology following. Continue aspirin Patient's Eliquis remains on hold secondary to anemia Recommend anemia workup. Will defer to internal medicine Further recommendations pending patient's course Nurse practitioner note has been reviewed by physician. Signing provider agrees with the documented findings, assessment, and plan of care. Objective - Vital Signs Vital signs: Vital Signs Temp 98.6 F 06/18/20 08:40 Pulse 76 06/18/20 12:00 Resp 16 06/18/20 12:00 BP 121/58 06/18/20 12:00 Pulse Ox 100 06/18/20 12:00 Intake & Output 06/17/20 06/18/20 06/18/20 18:59 06:59 18:59 Intake Total 100 0 Output Total 200 300 Balance -100 -300 Weight 145.15 kg 120.5 kg 120.5 kg Intake: Intake, IV Titration 100 Amount Meropenem 1 gm In Sodium 100 Chloride 0.9% 100 ml @ 33 .3 mls/hr IVPB Q8H [facility] Rx #:[id number] Oral 0 Output: Urine 200 300 Other: Voiding Method Indwelling Catheter - Labs CBC & Chem 7: 06/18/20 09:31 06/18/20 09:31 Labs: Abnormal Lab Results - Last 24 Hours (Table) 06/17/20 06/17/20 06/17/20 Range/Units 15:48 18:15 20:55 WBC (3.8-10.6) k/uL RBC 3.45 L (3.80-5.40) m/uL Hgb 7.8 L (11.4-16.0) gm/dL Hct 27.7 L (34.0-46.0) % MCV (80.0-100.0) fL MCH 22.6 L (25.0-35.0) pg MCHC 28.1 L (31.0-37.0) g/dL RDW 19.1 H (11.5-15.5) % ABG pH 7.32 L (7.35-7.45) ABG pCO2 56 H (35-45) mmHg ABG pO2 116 H (83-108) mmHg ABG HCO3 29 H (21-25) mmol/L ABG Total CO2 31 H (19-24) mmol/L ABG O2 Saturation 99.8 H (94-97) % Potassium (3.5-5.1) mmol/L Carbon Dioxide (22-30) mmol/L BUN (7-17) mg/dL Creatinine (0.52-1.04) mg/dL Glucose (74-99) mg/dL POC Glucose (mg/dL) 246 H (75-99) mg/dL 06/17/20 06/18/20 06/18/20 Range/Units 23:12 06:02 09:31 WBC (3.8-10.6) k/uL RBC (3.80-5.40) m/uL Hgb (11.4-16.0) gm/dL Hct (34.0-46.0) % MCV (80.0-100.0) fL MCH (25.0-35.0) pg MCHC (31.0-37.0) g/dL RDW (11.5-15.5) % ABG pH (7.35-7.45) ABG pCO2 (35-45) mmHg ABG pO2 (83-108) mmHg ABG HCO3 (21-25) mmol/L ABG Total CO2 (19-24) mmol/L ABG O2 Saturation (94-97) % Potassium 5.5 H (3.5-5.1) mmol/L Carbon Dioxide 33 H (22-30) mmol/L BUN 43 H (7-17) mg/dL Creatinine 0.45 L (0.52-1.04) mg/dL Glucose 195 H (74-99) mg/dL POC Glucose (mg/dL) 265 H 268 H (75-99) mg/dL 06/18/20 06/18/20 Range/Units 09:31 11:50 WBC 11.4 H (3.8-10.6) k/uL RBC 3.43 L (3.80-5.40) m/uL Hgb 7.8 L (11.4-16.0) gm/dL Hct 26.6 L (34.0-46.0) % MCV 77.5 L (80.0-100.0) fL MCH 22.9 L (25.0-35.0) pg MCHC 29.5 L (31.0-37.0) g/dL RDW 19.5 H (11.5-15.5) % ABG pH (7.35-7.45) ABG pCO2 (35-45) mmHg ABG pO2 (83-108) mmHg ABG HCO3 (21-25) mmol/L ABG Total CO2 (19-24) mmol/L ABG O2 Saturation (94-97) % Potassium (3.5-5.1) mmol/L Carbon Dioxide (22-30) mmol/L BUN (7-17) mg/dL Creatinine (0.52-1.04) mg/dL Glucose (74-99) mg/dL POC Glucose (mg/dL) 204 H (75-99) mg/dL Microbiology - Last 24 Hours (Table) 06/16/20 23:35 Blood Culture - Preliminary Blood No Growth after 24 hours 06/16/20 21:08 Urine Culture - Preliminary Urine,Voided Gram Neg Bacilli
[2020-06-18] MEDS ORDERED: SODIUM CHLORIDE 0.9% IVPB STA (13:44)
[2020-06-18] MEDS ORDERED: PHENYTOIN SODIUM IVPB STA (13:44)
--- NOTE | 2020-06-18 14:03 | P.PN ---
Subjective Progress Note Date: 06/18/20 Patient was seen at bedside and she was on CPAP. According to the agent nurse the family members hasn't seen the patient in the close to 8 months. And that the nurse stated that she was notified that the patient's baseline is the she is bedbound and we dominantly not verbally responsive. It is documented on the past medical history when I reviewed the charts that the patient has residual right-sided weakness when I reviewed the last neurologist the notes in 2017 he mentioned that the patient had the left upper 70 weakness and facial droop as well as visual impairment bilaterally and had memory int ellectual impairment. Objective - Vital Signs Vital signs: Vital Signs Temp 98.6 F 06/18/20 08:40 Pulse 76 06/18/20 12:00 Resp 16 06/18/20 12:00 BP 121/58 06/18/20 12:00 Pulse Ox 100 06/18/20 12:00 Intake & Output 06/17/20 06/18/20 06/18/20 18:59 06:59 18:59 Intake Total 100 0 Output Total 200 300 Balance -100 -300 Weight 145.15 kg 120.5 kg 120.5 kg Intake: Intake, IV Titration 100 Amount Meropenem 1 gm In Sodium 100 Chloride 0.9% 100 ml @ 33 .3 mls/hr IVPB Q8H [facility] Rx #:[id number] Oral 0 Output: Urine 200 300 Other: Voiding Method Indwelling Catheter - Exam GENERAL: The patient is lying in bed and is not in acute distress. NEUROLOGICAL: Limited because of patient's condition. Higher mental function: The patient is more awake today and not verbally responsive but patient was following some simple commands. She was able to show me a thumbs up on the left hand. Upon asking her to blink her eyes 3 times she is able to follow that command. 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 The right pupils is minimally to unreactive to light while left is sluggishly reactive to light. Unable to assess extraocular movement because of cooperation. No noticeable facial weakness noticed. Motor: Gait is deferred. The Strength: Was limited because of the patient's condition but was able to lift bilateral upper extremities above gravity and the left seems more than the right. Y the left lower extremity she was able to move it side to side on the bed while the right side to see any movements and am not sure if the patient has residual weakness over the right side. Cerebellum: Unable to assess. Sensation: Unable to assess light touch but grimaces throughout to painful stimuli. Reflexes (right/left): 1+ throughout. Plantars are mute bilaterally. - Labs CBC & Chem 7: 06/18/20 09:31 06/18/20 09:31 Labs: Abnormal Lab Results - Last 24 Hours (Table) 06/17/20 06/17/20 06/17/20 Range/Units 15:48 18:15 20:55 WBC (3.8-10.6) k/uL RBC 3.45 L (3.80-5.40) m/uL Hgb 7.8 L (11.4-16.0) gm/dL Hct 27.7 L (34.0-46.0) % MCV (80.0-100.0) fL MCH 22.6 L (25.0-35.0) pg MCHC 28.1 L (31.0-37.0) g/dL RDW 19.1 H (11.5-15.5) % Monocytes # (Manual) (0-1.0) k/uL Myelocytes # (Manual) (0) k/uL Nucleated RBCs (0-0) /100 WBC ABG pH 7.32 L (7.35-7.45) ABG pCO2 56 H (35-45) mmHg ABG pO2 116 H (83-108) mmHg ABG HCO3 29 H (21-25) mmol/L ABG Total CO2 31 H (19-24) mmol/L ABG O2 Saturation 99.8 H (94-97) % Potassium (3.5-5.1) mmol/L Carbon Dioxide (22-30) mmol/L BUN (7-17) mg/dL Creatinine (0.52-1.04) mg/dL Glucose (74-99) mg/dL POC Glucose (mg/dL) 246 H (75-99) mg/dL 06/17/20 06/18/20 06/18/20 Range/Units 23:12 06:02 09:31 WBC (3.8-10.6) k/uL RBC (3.80-5.40) m/uL Hgb (11.4-16.0) gm/dL Hct (34.0-46.0) % MCV (80.0-100.0) fL MCH (25.0-35.0) pg MCHC (31.0-37.0) g/dL RDW (11.5-15.5) % Monocytes # (Manual) (0-1.0) k/uL Myelocytes # (Manual) (0) k/uL Nucleated RBCs (0-0) /100 WBC ABG pH (7.35-7.45) ABG pCO2 (35-45) mmHg ABG pO2 (83-108) mmHg ABG HCO3 (21-25) mmol/L ABG Total CO2 (19-24) mmol/L ABG O2 Saturation (94-97) % Potassium 5.5 H (3.5-5.1) mmol/L Carbon Dioxide 33 H (22-30) mmol/L BUN 43 H (7-17) mg/dL Creatinine 0.45 L (0.52-1.04) mg/dL Glucose 195 H (74-99) mg/dL POC Glucose (mg/dL) 265 H 268 H (75-99) mg/dL 06/18/20 06/18/20 Range/Units 09:31 11:50 WBC 11.2 H (3.8-10.6) k/uL RBC 3.43 L (3.80-5.40) m/uL Hgb 7.8 L (11.4-16.0) gm/dL Hct 26.6 L (34.0-46.0) % MCV 77.5 L (80.0-100.0) fL MCH 22.9 L (25.0-35.0) pg MCHC 29.5 L (31.0-37.0) g/dL RDW 19.5 H (11.5-15.5) % Monocytes # (Manual) 1.57 H (0-1.0) k/uL Myelocytes # (Manual) 0.11 H (0) k/uL Nucleated RBCs 1 H (0-0) /100 WBC ABG pH (7.35-7.45) ABG pCO2 (35-45) mmHg ABG pO2 (83-108) mmHg ABG HCO3 (21-25) mmol/L ABG Total CO2 (19-24) mmol/L ABG O2 Saturation (94-97) % Potassium (3.5-5.1) mmol/L Carbon Dioxide (22-30) mmol/L BUN (7-17) mg/dL Creatinine (0.52-1.04) mg/dL Glucose (74-99) mg/dL POC Glucose (mg/dL) 204 H (75-99) mg/dL Microbiology - Last 24 Hours (Table) 06/16/20 23:35 Blood Culture - Preliminary Blood No Growth after 24 hours 06/16/20 21:08 Urine Culture - Preliminary Urine,Voided Gram Neg Bacilli Assessment and Plan Assessment: This is a 69-year-old with significant medical history that presented to our emergency department on 06/16/20 for altered mental status. Per the nursing facility the patient has been short of breath. Per the patient's nurse, patient baseline per nursing facility is non-verbal and bed bound. * Toxic metabolic encephalopathy: Due to multiple factorial respiratory failure, urinary tract infection, anemia and electrolyte imbalance)--improving * Multiple old stroke (bilateral parietal and right occipital reported on current CT head. Patient had MRI the brain on 02/16/2017 was reported as multifocal predominantly cortical area of subacute stroke. Restricted diffusion noted in the left and right cerebellar hemisphere, additional foci involving the medial occipital lobe right greater than the left, temporal lobe bilaterally with small foci scattered in the frontal lobe, larger area in the right greater than the left parietal lobe. This is likely due to cardioembolic. * On examination it seems the patient has residual right-sided weakness which is also documented in the past medical history. Unsure exactly the patient's baseline. Nursing staff were notified that the patient baseline is bedbound and nonverbal. * non-verbal and bed bound (per patient nurse according to nursing facility) * Acute respiratory failure * Anemia * Atrial fibrillation s/p pacemaker and on Eliquis 5 mg twice a day * Urinary tract infection * Electrolyte imbalance * History of DVT on the Eliquis * Hyperlipidemia * Hypertension * Diabetic retinal about the an blind over the right eye * History of lumbar fusion Plan: The patient CT of the head the findings of strokes are old. 2-D echo: Moderate concentric left ventricular hypertrophy. Ejection fraction of 65-70%. Basal and for septal left ventricle wall motion is hypokinetic. Mild anteroseptal left ventricular wall motion is hypokinetic. Left atrial size is normal. carotid duplex: Suboptimal evaluation of the carotid arteries due to patient body habitus, patient condition, and tortuous internal carotid arteries. Low- flow less than 45 cm/s of the bilateral common carotid arteries may be secondary to poor cardiac output. Increase of flow parameters of bilateral internal carotid artery suggestive 50-69% stenosis, however may be artifactual due to [place]. Recommend correlation with a CT examination of the neck. I ordered CTA of the neck. Lipid profile: pending. Continue aspirin 81 mg daily. Patient does have according to the medical record and history of atrial fibrillation and she is on Eliquis 5 mg twice a day which is being held because of the patient's anemia. Which is being held. Cotinue Lipitor 40 mg daily. I consult cardiology since I felt those old strokes were cardioembolic. Physical therapy, occupational therapy and therapy are consulted routine EEG on 06/18/2020 and the background does show slowing suggestive of moderate to severe encephalopathy of nonspecific etiology. There are no focal slowing, Otoniel discharges or seizure on the routine EEG. On 06/16/20TSH is 3.21 which is normal, hemoglobin A1c is 6.3 which is elevated. These labs don't need to be repeated. vitamin B12 and folate are pending. Regarding the patient urinary tract infection and any other underlying infection will defer to the primary team. Regarding the patient respiratory sympotoms, Dr. Chambers is consulted. The plan was discussed with the patient nurse. Will continue to follow. Twin Pan M.D. Neuro-hospitalist Time with Patient: Greater than 30
--- NOTE | 2020-06-18 16:30 | CT ---
EXAMINATION TYPE: CT angio neck DATE OF EXAM: 06/18/2020 HISTORY: Carotid stenosis. Code stroke. COMPARISON: Carotid ultrasound from yesterday. MRA neck from February 18, 2017 CT DLP: 793.1 mGycm. Automated Exposure Control for Dose Reduction was Utilized. TECHNIQUE: CTA scan of the neck is performed with IV Contrast, patient injected with 65ml mL of Isov ue 370, axial images are obtained, coronal and sagittal reformatted images are reviewed. Three-D adalgisa nstructed images created on a independent workstation and reviewed. FINDINGS: Carotid/Vascular Structures: Mild to moderate peripheral plaque in the aortic arch. Bovine type arch redemonstrated. Direct origin of left vertebral artery from aortic arch redemonstrated. Right common carotid artery shows normal origin from right brachiocephalic artery. Tortuous medial co urse to the mid to distal common carotid arteries bilaterally. Mild to moderate calcified plaque dist al common carotid arteries extends into the internal/external carotid arteries bilaterally without si gnificant stenosis. Atherosclerotic Findings greater on the left versus right. Tortuous course to the left internal carotid artery at its origin noted. Patent bilateral external carotid arteries without significant plaque or stenosis. Fairly severe calcified plaque in the petrous and supraclinoid segme nt of the distal internal carotid arteries is present. Vertebral arteries are patent to the basilar j unction. Other: Slight scoliotic curvature on coronal images. Moderate disc space narrowing C5-C6 and C6-C7 le vels with mild to moderate spurring. Partial visualization of left sided upper chest pacemaker device . IMPRESSION: No significant stenosis in common or internal carotid arteries bilaterally.
--- NOTE | 2020-06-18 16:55 | P.PN ---
Subjective Progress Note Date: 06/18/20 Principal diagnosis: Altered mental status, acute on chronic hypoxic and hypercapnic respiratory failure 69-year-old white female patient with multiple chronic medical conditions, including atrial fibrillation, previous history of CVA with right-sided hemiplegia, dysphagia, status post PEG tube placement in 2017, diabetes mellitus, hypertension, hyperlipidemia, morbid obesity, difficulty with mobility, patient is a jail resident, she has a legal guardian, and were told that she is nonverbal at her baseline. Patient was brought into the emergency department on 06/16/2020 for evaluation of altered mental status. Apparently there was a concern for possible aspiration. Patient was febrile on presentation with a temp of 100F, she was hypoxic with a pulse ox of 88% on 4 L. Lab work revealed leukocytosis with a white count of 12.8, hemoglobin was 8, troponin was negative at less than 0.012, proBNP was 2730, urinalysis was suspicious for infection. Coronavirus rapid screen was negative. Chest x-ray revealed cardiomegaly, mild pleural reaction at the right lung base, some coarsening of the lung markings. Left axillary pacemaker was noted. Was a slight blunting of the right costophrenic angle. Brain CT showed bilateral old infarcts in the right and left parietal lobes and right occipital lobe. There was cerebral atrophy. EKG showed normal sinus rhythm with sinus arrhythmia with evidence of septal infarct of undetermined age. She was quite lethargic, blood gas revealed pO2 of 296, pCO2 of 89, and pH of 7.23, this was done on 100% FiO2. Patient is placed on AVAPS, currently with FiO2 of 35%. She was started on Rocephin for possibility of urinary tract infection, she is on IV steroids, she was fluid resuscitated for possibility of urinary tract infection with sepsis. Urine drug screen was negative. Patient continued to have altered mentation, neurology evaluation was completed, please refer to their consultation. Echocardiogram showed moderate concentric LVH, EF between 65-70%, mild TR, mild pulmonary hypertension, with right-sided pressures of 42 mmHg. Carotid Doppler completed showing suboptimal evaluation due to large body habitus, patient condition and tortuous internal carotid arteries. Increased flow parameters on the bilateral internal carotid artery suggested 50-69% stenosis. Today patient was seen by us for the first time in evaluation and she is stuporous, remains on AVAPS mode of an NIPPV ventilation. She was switched over to BiPAP mode of ventilation with pressures of 14 and 5 and FiO2 of 35%, repeat blood gas was ordered, and within about 5-10 minutes she is already starting to become more responsive. She is achieving pressures of 350-400 mL, minute ventilation of 5-6 L/m, with a respiratory rate of 17, patient is starting to open eyes. The patient is seen today 06/18/2020 in follow-up on the selective care unit. She is more awake and alert today. She is nonverbal. Difficult to assess her overall mental status. She is maintaining good O2 saturations on 4 L nasal cannula at 97%. She's been afebrile. Hemodynamically stable. She did utilize BiPAP last evening. Urine culture is positive for gram-negative bacilli. Blood culture reveals no growth to date. White count 11.2. Hemoglobin 7.8. Sodium 141. Potassium 5.5. Creatinine 0.45. Currently on antibiotics in the form of meropenem. Remains on bronchodilators and IV Solu-Medrol. 0.9 normal saline at 75 ML's per hour. Objective - Vital Signs Vital signs: Vital Signs Temp 98.4 F 06/18/20 16:18 Pulse 60 06/18/20 16:18 Resp 16 06/18/20 16:18 BP 113/47 06/18/20 16:18 Pulse Ox 97 06/18/20 16:18 Intake & Output 06/17/20 06/18/20 06/18/20 18:59 06:59 18:59 Intake Total 100 0 Output Total 200 300 Balance -100 -300 Weight 145.15 kg 120.5 kg 120.5 kg Intake: Intake, IV Titration 100 Amount Meropenem 1 gm In Sodium 100 Chloride 0.9% 100 ml @ 33 .3 mls/hr IVPB Q8H [facility] Rx #:[id number] Oral 0 Output: Urine 200 300 Other: Voiding Method Indwelling Catheter Indwelling Catheter - Exam GENERAL EXAM: Awake, alert, nonverbal, 69-year-old morbidly obese white female, on 4 L nasal cannula with O2 saturation 97% HEAD: Normocephalic/atraumatic. EYES: Normal reaction of pupils, equal size. Conjunctiva pink, sclera white. NOSE: Clear with pink turbinates. THROAT: No erythema or exudates. NECK: No masses, no JVD, no thyroid enlargement, no adenopathy. CHEST: No chest wall deformity. Symmetrical expansion. LUNGS: Equal air entry with no crackles, wheeze, rhonchi or dullness. CVS: Regular rate and rhythm, normal S1 and S2, no gallops, no murmurs, no rubs ABDOMEN: Soft, nontender. No hepatosplenomegaly, normal bowel sounds, no guarding or rigidity. PEG tube in place EXTREMITIES: No clubbing, no edema, no cyanosis, 2+ pulses and upper and lower extremities. MUSCULOSKELETAL: Residual right-sided weakness from previous CVA. SPINE: No scoliosis or deformity SKIN: No rashes CENTRAL NERVOUS SYSTEM: History of multiple CVAs with residual right-sided weakness, Nonverbal. - Labs CBC & Chem 7: 06/18/20 09:31 06/18/20 09:31 Labs: Abnormal Lab Results - Last 24 Hours (Table) 06/17/20 06/17/20 06/17/20 Range/Units 18:15 20:55 23:12 WBC (3.8-10.6) k/uL RBC (3.80-5.40) m/uL Hgb (11.4-16.0) gm/dL Hct (34.0-46.0) % MCV (80.0-100.0) fL MCH (25.0-35.0) pg MCHC (31.0-37.0) g/dL RDW (11.5-15.5) % Monocytes # (Manual) (0-1.0) k/uL Myelocytes # (Manual) (0) k/uL Nucleated RBCs (0-0) /100 WBC ABG pH 7.32 L (7.35-7.45) ABG pCO2 56 H (35-45) mmHg ABG pO2 116 H (83-108) mmHg ABG HCO3 29 H (21-25) mmol/L ABG Total CO2 31 H (19-24) mmol/L ABG O2 Saturation 99.8 H (94-97) % Potassium (3.5-5.1) mmol/L Carbon Dioxide (22-30) mmol/L BUN (7-17) mg/dL Creatinine (0.52-1.04) mg/dL Glucose (74-99) mg/dL POC Glucose (mg/dL) 246 H 265 H (75-99) mg/dL 06/18/20 06/18/20 06/18/20 Range/Units 06:02 09:31 09:31 WBC 11.2 H (3.8-10.6) k/uL RBC 3.43 L (3.80-5.40) m/uL Hgb 7.8 L (11.4-16.0) gm/dL Hct 26.6 L (34.0-46.0) % MCV 77.5 L (80.0-100.0) fL MCH 22.9 L (25.0-35.0) pg MCHC 29.5 L (31.0-37.0) g/dL RDW 19.5 H (11.5-15.5) % Monocytes # (Manual) 1.57 H (0-1.0) k/uL Myelocytes # (Manual) 0.11 H (0) k/uL Nucleated RBCs 1 H (0-0) /100 WBC ABG pH (7.35-7.45) ABG pCO2 (35-45) mmHg ABG pO2 (83-108) mmHg ABG HCO3 (21-25) mmol/L ABG Total CO2 (19-24) mmol/L ABG O2 Saturation (94-97) % Potassium 5.5 H (3.5-5.1) mmol/L Carbon Dioxide 33 H (22-30) mmol/L BUN 43 H (7-17) mg/dL Creatinine 0.45 L (0.52-1.04) mg/dL Glucose 195 H (74-99) mg/dL POC Glucose (mg/dL) 268 H (75-99) mg/dL 06/18/20 Range/Units 11:50 WBC (3.8-10.6) k/uL RBC (3.80-5.40) m/uL Hgb (11.4-16.0) gm/dL Hct (34.0-46.0) % MCV (80.0-100.0) fL MCH (25.0-35.0) pg MCHC (31.0-37.0) g/dL RDW (11.5-15.5) % Monocytes # (Manual) (0-1.0) k/uL Myelocytes # (Manual) (0) k/uL Nucleated RBCs (0-0) /100 WBC ABG pH (7.35-7.45) ABG pCO2 (35-45) mmHg ABG pO2 (83-108) mmHg ABG HCO3 (21-25) mmol/L ABG Total CO2 (19-24) mmol/L ABG O2 Saturation (94-97) % Potassium (3.5-5.1) mmol/L Carbon Dioxide (22-30) mmol/L BUN (7-17) mg/dL Creatinine (0.52-1.04) mg/dL Glucose (74-99) mg/dL POC Glucose (mg/dL) 204 H (75-99) mg/dL Microbiology - Last 24 Hours (Table) 06/16/20 23:35 Blood Culture - Preliminary Blood No Growth after 24 hours 06/16/20 21:08 Urine Culture - Preliminary Urine,Voided Gram Neg Bacilli Assessment and Plan Assessment: #1. Acute on chronic hypercapnic respiratory failure, related to acute urinary tract infection #2. Chronic hypercapnic respiratory failure related to obesity hypoventilation syndrome, possibility of obstructive sleep apnea #3. History of multiple old strokes, and bilateral parietal and right occipital, with history of right-sided weakness, dysphagia, and aphasia #4. History of dysphagia, status post PEG tube placement #5. Patient is nonverbal and bedbound, and is a resident of a local [facility]. She has a legal guardian #6. Chronic anemia #7. History of atrial fibrillation, currently in sinus rhythm, on chronic anticoagulation with Eliquis, history of permanent pacemaker implantation #8. History of hypertension #9. Hyperlipidemia #10. 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 History of lumbar fusion #12. Morbid obesity #13. Previous history of ESBL urinary tract infection Plan: The patient was seen and evaluated by Dr. Chambers She is more awake and alert today, nonverbal Maintaining good O2 saturations in the 90s on 4 L/m per nasal cannula Utilizing the BiPAP at night and while napping Continue the current treatment plan We will continue to follow I, the cosigning physician, performed a history & physical examination of the patient. Lungs sounds are clear but diminished. Maintaining good O2 saturations in the 90s on 4 L/m per nasal cannula. I discussed the assessment and plan of care with my nurse practitioner, Cecille Caraballo. I attest to the above note as dictated by her.
[2020-06-18 17:05] LABS: % Iron Saturation 3.55 (12.00-45.00)
[2020-06-18 17:11] LABS: Glucose,Whole Blood 226 mg/dL (75-99)
[2020-06-18 17:14] LABS: Ferritin 5.4 ng/mL (10.0-291.0)
[2020-06-18 20:15] LABS: Glucose,Whole Blood 221 mg/dL (75-99)
[2020-06-18 23:26] LABS: Glucose,Whole Blood 199 mg/dL (75-99)
[2020-06-19] MEDS: MEROPENEM 1 GM in SODIUM CHLORIDE 0.9% 100 ML IVPB SCH ×3 (02:18→17:38)
[2020-06-19] MEDS: ASPIRIN 300 MG SUPP RECTAL SCH (05:02)
[2020-06-19 06:09] LABS: Glucose,Whole Blood 231 mg/dL (75-99)
[2020-06-19] MEDS: INSULIN ASPART (NovoLOG) 100 UNIT/ML VIAL SQ SCH ×4 (06:22→23:16)
[2020-06-19] MEDS: IPRATROPIUM-ALBUTEROL 3 ML NEB INHALATION SCH ×4 (08:32→20:51)
[2020-06-19] MEDS: PANTOPRAZOLE 40 MG/10 ML VIAL IVP SCH (09:06)
[2020-06-19] MEDS: methylPREDNISolone SOD SUCCI 40 MG/ML 1 ML VIAL IV SCH ×2 (09:07→20:43)
[2020-06-19] MEDS: lisinopriL 20 MG TAB PEG/G-TUBE SCH (09:07)
[2020-06-19] MEDS: FUROSEMIDE 20 MG TAB PEG/G-TUBE SCH (09:07)
[2020-06-19] MEDS: METOPROLOL TARTRATE 50 MG TAB PEG/G-TUBE SCH ×2 (09:07→20:43)
[2020-06-19] MEDS: ASPIRIN 81 MG PO SCH (09:07)
--- NOTE | 2020-06-19 11:42 | P.PN ---
Subjective Progress Note Date: 06/19/20 The patient is seen at bedside and per nurse she is doing well. She was minimally verbally responsive and following some commands. No seizure like activity seen during hospital stay. Objective - Vital Signs Vital signs: Vital Signs Temp 97.5 F L 06/19/20 08:00 Pulse 78 06/19/20 08:43 Resp 18 06/19/20 08:00 BP 170/70 06/19/20 08:00 Pulse Ox 100 06/19/20 08:32 Intake & Output 06/18/20 06/19/20 06/19/20 18:59 06:59 18:59 Intake Total 0 Output Total 300 1200 Balance -300 -1200 Weight 120.5 kg 120 kg Intake: Oral 0 Output: Urine 300 1200 Other: Voiding Method Indwelling Catheter Indwelling Catheter - Exam GENERAL: The patient is lying in bed and is not in acute distress. NEUROLOGICAL: Higher mental function: The patient is more awake today and is oriented to self and place. Regarding the current year she said it was 1998 and for month she said it was September. Otherwise did not verbalize anything else for me. Was f ollowing simple commands such as showing a thumb up over the left. 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 The right pupils is minimally to unreactive to light while left is sluggishly reactive to light. Unable to assess extraocular movement because of cooperation. Unable to assess facial sensation because of her cooperation. No noticeable facial weakness noticed. Motor: Gait is deferred. The Strength: Left upper extremity she was able to lift above gravity. But not moving the right upper extremity. Not moving bilateral lower extremities for me today (she has residual weakness of right s ided weakness). Increased tone over the right sided. Cerebellum: Unable to assess because of cooperation. Sensation: Unable to assess light touch but grimaces throughout to painful stimuli. Reflexes (right/left): 1+ throughout. Plantars are mute bilaterally. - Labs CBC & Chem 7: 06/19/20 13:50 06/19/20 13:50 Labs: Abnormal Lab Results - Last 24 Hours (Table) 06/16/20 06/18/20 06/18/20 Range/Units 21:08 09:31 11:50 WBC 11.2 H (3.8-10.6) k/uL Monocytes # (Manual) 1.57 H (0-1.0) k/uL Myelocytes # (Manual) 0.11 H (0) k/uL Nucleated RBCs 1 H (0-0) /100 WBC POC Glucose (mg/dL) 204 H (75-99) mg/dL Iron 14 L (50-170) ug/dL % Saturation 3.55 L (12.00-45.00) Ferritin 5.4 L (10.0-291.0) ng/mL 06/18/20 06/18/20 06/18/20 Range/Units 16:53 20:13 23:24 WBC (3.8-10.6) k/uL Monocytes # (Manual) (0-1.0) k/uL Myelocytes # (Manual) (0) k/uL Nucleated RBCs (0-0) /100 WBC POC Glucose (mg/dL) 226 H 221 H 199 H (75-99) mg/dL Iron (50-170) ug/dL % Saturation (12.00-45.00) Ferritin (10.0-291.0) ng/mL 06/19/20 Range/Units 06:07 WBC (3.8-10.6) k/uL Monocytes # (Manual) (0-1.0) k/uL Myelocytes # (Manual) (0) k/uL Nucleated RBCs (0-0) /100 WBC POC Glucose (mg/dL) 231 H (75-99) mg/dL Iron (50-170) ug/dL % Saturation (12.00-45.00) Ferritin (10.0-291.0) ng/mL Microbiology - Last 24 Hours (Table) 06/16/20 21:08 Urine Culture - Final Urine,Voided Escherichia coli 06/16/20 23:35 Blood Culture - Preliminary Blood No Growth after 48 hours Assessment and Plan Assessment: This is a 69-year-old with significant medical history that presented to our emergency department on 06/16/20 for altered mental status. Per the nursing facility the patient has been short of breath. Per the patient's nurse, patient baseline per nursing facility is non-verbal and bed bound. Upon my examination she is minimally verbal and was oriented X2 with residual weakness over the right side. She does follow some simple commands. 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 Patient had MRI the brain on 02/16/2017 was reported as multifocal predominantly cortical area of subacute stroke. Restricted diffusion noted in the left and right cerebellar hemisphere, additional foci involving the medial occipital lobe right greater than the left, temporal lobe bilaterally with small foci scattered in the frontal lobe, larger area in the right greater than the left parietal lobe. This is likely due to cardioembolic. * On examination it seems the patient has residual right-sided weakness which is also documented in the past medical history. Unsure exactly the patient's baseline. 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 2-D echo: Moderate concentric left ventricular hypertrophy. Ejection fraction of 65-70%. Basal and for septal left ventricle wall motion is hypokinetic. Mild anteroseptal left ventricular wall motion is hypokinetic. Left atrial size is normal. carotid duplex: Suboptimal evaluation of the carotid arteries due to patient body habitus, patient condition, and tortuous internal carotid arteries. Low- flow less than 45 cm/s of the bilateral common carotid arteries may be secondary to poor cardiac output. Increase of flow parameters of bilateral internal carotid artery suggestive 50-69% stenosis, however may be artifactual due to [place]. Recommend correlation with a CT examination of the neck. CTA of the neck: No significant stenosis in the common or internal carotid arteries bilaterally. Lipid profile: Triglyceride 122, cholesterol 109, LDL 68, HDL is 27. Continue aspirin 81 mg daily. Patient does have according to the medical record and history of atrial fibrillation and she is on Eliquis 5 mg twice a day which is being held because of the patient's anemia. Which is being held. Cotinue Lipitor 40 mg daily. Cardiology is on board since old strokes seem cardioembolic. Physical therapy, occupational therapy and therapy are consulted routine EEG on 06/18/2020 and the background does show slowing suggestive of moderate to severe encephalopathy of nonspecific etiology. There are no focal slowing, Otoniel discharges or seizure on the routine EEG. On 06/16/20TSH is 3.21 which is normal, hemoglobin A1c is 6.3 which is elevated. These labs don't need to be repeated. vitamin B12: 355 (normal and the normal is between 209 144). Therefore I'll start the patient on the vitamin B12 500mcg daily since slightly on the low normal. folate are pending. Defer and the management of anemia and uncontrolled diabetes to the primary team. Regarding the patient urinary tract infection and any other underlying infection will defer management to the primary team. Regarding the patient respiratory symptoms, Dr. Chambers is on board. The plan was discussed with the patient nurse. There is no neurology service over the weekend. Please Perfect serve if needed Twin Pan M.D. Neuro-hospitalist Time with Patient: Less than 30
[2020-06-19] MEDS: SODIUM CHLORIDE 0.9% 1,000 ML IV SCH (12:05)
[2020-06-19 12:12] LABS: Glucose,Whole Blood 249 mg/dL (75-99)
[2020-06-19] MEDS: CYANOCOBALAMIN 500 MCG TAB PEG/G-TUBE SCH (12:35)
--- NOTE | 2020-06-19 13:15 | P.PN ---
Subjective Progress Note Date: 06/19/20 CHIEF COMPLAINT: Possible cardiac embolic stroke HISTORY OF PRESENT ILLNESS: Patient examined this morning at the bedside. Patient is more awake this morning. She denies chest pain or pressure. Denies shortness of breath. Patient's hemoglobin remains stable 7.8 today. PHYSICAL EXAM: VITAL SIGNS: Reviewed. GENERAL: Well-developed in no acute distress HEENT: Head is normocephalic. Sclerae anicteric. Mucous membranes of the mouth are moist. Neck supple. No JVD or thyromegaly LUNGS: Respirations even and unlabored. Lungs diminished. HEART: Irregular rate and rhythm. S1 and S2 heard. ABDOMEN: Soft. Nondistended. Nontender. EXTREMITIES: Normal range of motion. No clubbing or cyanosis. Peripheral pulses intact. No lower extremity edema NEUROLOGIC: Patient more awake in comparison to yesterday. ASSESSMENT: Metabolic encephalopathy Urinary tract infection Acute hypoxic respiratory failure, requiring BiPAP Acute CVA: ruled out per neurology History of CVA History of paroxysmal atrial fibrillation, on long-term anticoagulation with Eliquis Anemia, etiology unknown Diabetes mellitus, type II Hypertension Hyperlipidemia History of pacemaker insertion PLAN: Neurology following Continue to monitor hemoglobin Recommend resuming Eliquis. Will defer to internal medicine when they feel it is appropriate to resume in light of patients anemia We will follow on an as-needed basis. Please call with questions or concerns Nurse practitioner note has been reviewed by physician. Signing provider agrees with the documented findings, assessment, and plan of care. Objective - Vital Signs Vital signs: Vital Signs Temp 97.5 F L 06/19/20 08:00 Pulse 68 06/19/20 12:30 Resp 18 06/19/20 08:00 BP 170/70 06/19/20 08:00 Pulse Ox 100 06/19/20 08:32 Intake & Output 06/18/20 06/19/20 06/19/20 18:59 06:59 18:59 Intake Total 0 Output Total 300 1200 Balance -300 -1200 Weight 120.5 kg 120 kg Intake: Oral 0 Output: Urine 300 1200 Other: Voiding Method Indwelling Catheter Indwelling Catheter - Labs CBC & Chem 7: 06/18/20 09:31 06/18/20 09:31 Labs: Abnormal Lab Results - Last 24 Hours (Table) 06/16/20 06/18/20 06/18/20 Range/Units 21:08 09:31 16:53 WBC 11.2 H (3.8-10.6) k/uL Monocytes # (Manual) 1.57 H (0-1.0) k/uL Myelocytes # (Manual) 0.11 H (0) k/uL Nucleated RBCs 1 H (0-0) /100 WBC POC Glucose (mg/dL) 226 H (75-99) mg/dL Iron 14 L (50-170) ug/dL % Saturation 3.55 L (12.00-45.00) Ferritin 5.4 L (10.0-291.0) ng/mL 06/18/20 06/18/20 06/19/20 Range/Units 20:13 23:24 06:07 WBC (3.8-10.6) k/uL Monocytes # (Manual) (0-1.0) k/uL Myelocytes # (Manual) (0) k/uL Nucleated RBCs (0-0) /100 WBC POC Glucose (mg/dL) 221 H 199 H 231 H (75-99) mg/dL Iron (50-170) ug/dL % Saturation (12.00-45.00) Ferritin (10.0-291.0) ng/mL 06/19/20 Range/Units 11:51 WBC (3.8-10.6) k/uL Monocytes # (Manual) (0-1.0) k/uL Myelocytes # (Manual) (0) k/uL Nucleated RBCs (0-0) /100 WBC POC Glucose (mg/dL) 249 H (75-99) mg/dL Iron (50-170) ug/dL % Saturation (12.00-45.00) Ferritin (10.0-291.0) ng/mL Microbiology - Last 24 Hours (Table) 06/16/20 21:08 Urine Culture - Final Urine,Voided Escherichia coli 06/16/20 23:35 Blood Culture - Preliminary Blood No Growth after 48 hours
--- NOTE | 2020-06-19 13:17 | P.PN ---
Subjective This is a pleasant 69 years old female with past medical history of stroke since 2017 with dysphagia status post PEG tube. Other medical problems including atrial fibrillation, DVT, GERD, hyperlipidemia, hypertension. Presents because of altered mental status and low-grade fever. Patient could not provide information and were obtained from the chart. As per documentation was presented because of altered mental status with Schiller respiration and there was concerns for aspiration. He came from [facility]. Patient does not follow, and currently. He had a temperature of 100.0 upon admission. He was also hypoxic 88% on 4 L oxygen dependent and a cannula, came up to 99% on 10 L Labs showing mild leukocytosis of 12.8, hemoglobin is 8.0, platelet is normal. INR is 1.1, ABG showing low pH of 7.2 and high pCO2 of 89 and bicarb of 38, oxygen is 296. Potassium slightly elevated at 5.6, creatinine is normal 0.65. Liver enzymes not elevated. Troponin is negative less than 0.012. C-reactive protein is slightly elevated at 19, lactate dehydrogenase is normal at 453. ProBNP is 2730. Urinalysis is suspicious for infection. Urinary tract screen is negative Coronal virus not detected EKG showed normal sinus rhythm at [address]-T changes CT of the brain: Bilateral old infarcts in the right and left parietal lobes and the right occipital lobe. Right parietal infarct not change compared to old exam. The other infarcts appear new. Cerebral atrophy Patient already has been evaluated by neurologist recommended cardiology evaluation for possible cardioembolic source In the emergency room patient was started on ceftriaxone, Solu-Medrol 60 mg and he received 2 L of normal saline and then continued at 100 mL per hour. Also he was started on BiPAP there was concern for anemia with a low hemoglobin at 8.0. 06/18/2020 Patient still nonverbal she opens eyes to verbal and tactile stimuli but she do es not follow command. She still needed and BiPAP this morning. She still have altered mental status EEG showing moderate to severe encephalopathy but no epileptiform discharge. Carotid duplex showing bilateral carotid artery stenosis about 50-69%. Echocardiogram showing ejection fraction of 65-70% with LV wall hypokinesia. Urine culture is growing gram-negative bacilli and currently she is on meropenem for possible ESBL Eliquis is still on hold because of possible GI bleed and significant anemia. Anemia workup still undergoing, occult blood in stool is pending. Cardiology and neurology on the case for her altered mental status and multiple strokes to rule out cardiac source of emboli. Covid test is negative I discussed the case with her daughter miss PURVIS at [phone]. 06/19/2020 Patient is awake and alert today, she opens eyes spontaneously, she couldn't tell the name, [facility] felt [facility] and answer other questions appropriately, she follows commands. Breathing is easier today. Generally she feels good. She denies chest pain or abdominal pain she has 1+ leg edema. Blood pressure is 170/70, rest of Vitas looks stable. Sugar is slightly elevated. She was on Levemir 44 units and Januvia 100 mg of metformin 1000 mg twice a day, also she is currently on steroids. We are going to resume her insulin and monitor closely. Urine is going ESBL E. coli which is sensitive to meropenem. Eliquis is still on hold for possible GI bleed, surgery team were consulted for low hemoglobin. Cardiology team on the case. Check labs today. Review of system: N/a Active Medications Generic Name Dose Route Start Last Admin Trade Name Freq PRN Reason Stop Dose Admin Albuterol/Ipratropium 3 ml 06/17/20 08:00 06/19/20 12:30 Ipratropium-Albuterol 3 Ml Neb INHALATION 3 ml RT-QID BONNY Administration Albuterol/Ipratropium 3 ml 06/16/20 23:08 Ipratropium-Albuterol 3 Ml Neb INHALATION RT-Q4H PRN Shortness Of Breath Or Wheezing Aspirin 81 mg 06/17/20 09:00 06/19/20 09:07 Aspirin 81 Mg PO 81 mg DAILY BONNY Administration Atorvastatin Calcium 40 mg 06/17/20 14:00 06/18/20 12:19 Atorvastatin 40 Mg Tab PEG/G-TUBE 40 mg DAILY@1400 BONNY Administration Cyanocobalamin 500 mcg 06/19/20 11:45 06/19/20 12:35 Cyanocobalamin 500 Mcg Tab PEG/G-TUBE 500 mcg DAILY BONNY Administration Furosemide 20 mg 06/18/20 09:00 06/19/20 09:07 Furosemide 20 Mg Tab PEG/G-TUBE 20 mg DAILY BONNY Administration Sodium Chloride 1,000 mls @ 75 mls/hr 06/16/20 23:15 06/19/20 12:05 Saline 0.9% IV Not Given .[id number] BONNY Meropenem 1 gm/ Sodium 100 mls @ 33.3 mls/hr 06/17/20 18:00 06/19/20 09:07 Chloride IVPB 33.3 mls/hr Q8H BONNY Administration Protocol Insulin Aspart 0 unit 06/17/20 12:00 06/19/20 12:35 Insulin Aspart (Novolog) 100 Unit/Ml Vial SQ 8 unit Q6HR BONNY Administration Protocol Lisinopril 20 mg 06/18/20 09:00 06/19/20 09:07 Lisinopril 20 Mg Tab PEG/G-TUBE 20 mg DAILY BONNY Administration Methylprednisolone Sodium Succinate 40 mg 06/17/20 21:00 06/19/20 09:07 Methylprednisolone Sod Succi 40 Mg/Ml 1 Ml Vial IV 40 mg Q12HR BONNY Administration Metoprolol Tartrate 50 mg 06/17/20 21:00 06/19/20 09:07 Metoprolol Tartrate 50 Mg Tab PEG/G-TUBE 50 mg BID BONNY Administration Nitroglycerin 0.4 mg 06/17/20 11:49 Nitroglycerin Sl Tabs 0.4 Mg Tab SUBLINGUAL Q5M PRN Chest Pain Pantoprazole Sodium 40 mg 06/17/20 12:00 06/19/20 09:06 Pantoprazole 40 Mg/10 Ml Vial IVP 40 mg DAILY BONNY Administration Objective - Vital Signs Vital signs: Vital Signs Temp 97.5 F L 06/19/20 08:00 Pulse 68 06/19/20 12:30 Resp 18 06/19/20 08:00 BP 170/70 06/19/20 08:00 Pulse Ox 100 06/19/20 08:32 Intake & Output 06/18/20 06/19/20 06/19/20 18:59 06:59 18:59 Intake Total 0 Output Total 300 1200 Balance -300 -1200 Weight 120.5 kg 120 kg Intake: Oral 0 Output: Urine 300 1200 Other: Voiding Method Indwelling Catheter Indwelling Catheter - Exam -GENERAL: The patient is nonverbal. Does not follow commands. Obese HEENT: Pupils are round and equally reacting to light. EOMI. No scleral icterus. No conjunctival pallor. Normocephalic, atraumatic. No pharyngeal erythema. No thyromegaly. CARDIOVASCULAR: S1 and S2 present. No murmurs, rubs, or gallops. -PULMONARY: Chest is clear to auscultation, bilateral scattered wheezing -ABDOMEN: Soft, nontender, nondistended, normoactive bowel sounds. No palpable organomegaly. PEG tube is in place MUSCULOSKELETAL: No joint swelling or deformity. EXTREMITIES: No cyanosis, clubbing, or pedal edema. NEUROLOGICAL: Gross neurological examination did not reveal any focal deficits. SKIN: No rashes. No petechiae - Labs CBC & Chem 7: 06/18/20 09:31 06/18/20 09:31 Labs: Abnormal Lab Results - Last 24 Hours (Table) 06/16/20 06/18/20 06/18/20 Range/Units 21:08 09:31 16:53 WBC 11.2 H (3.8-10.6) k/uL Monocytes # (Manual) 1.57 H (0-1.0) k/uL Myelocytes # (Manual) 0.11 H (0) k/uL Nucleated RBCs 1 H (0-0) /100 WBC POC Glucose (mg/dL) 226 H (75-99) mg/dL Iron 14 L (50-170) ug/dL % Saturation 3.55 L (12.00-45.00) Ferritin 5.4 L (10.0-291.0) ng/mL 06/18/20 06/18/20 06/19/20 Range/Units 20:13 23:24 06:07 WBC (3.8-10.6) k/uL Monocytes # (Manual) (0-1.0) k/uL Myelocytes # (Manual) (0) k/uL Nucleated RBCs (0-0) /100 WBC POC Glucose (mg/dL) 221 H 199 H 231 H (75-99) mg/dL Iron (50-170) ug/dL % Saturation (12.00-45.00) Ferritin (10.0-291.0) ng/mL 06/19/20 Range/Units 11:51 WBC (3.8-10.6) k/uL Monocytes # (Manual) (0-1.0) k/uL Myelocytes # (Manual) (0) k/uL Nucleated RBCs (0-0) /100 WBC POC Glucose (mg/dL) 249 H (75-99) mg/dL Iron (50-170) ug/dL % Saturation (12.00-45.00) Ferritin (10.0-291.0) ng/mL Microbiology - Last 24 Hours (Table) 06/16/20 21:08 Urine Culture - Final Urine,Voided Escherichia coli 06/16/20 23:35 Blood Culture - Preliminary Blood No Growth after 48 hours Assessment and Plan Assessment: Acute hypoxic, hypercapnic respiratory failure Acute COPD exacerbation Metabolic encephalopathy secondary to above Acute urinary tract infection, secondary to ESBL E. coli Hypochromic microcytic Anemia, rule out GI bleed Multiple strokes. Bilateral cerebral infarcts, they look old however they are new compared to old exam especially in the right occipital lobe and the left parietal lobe. Rule out cardiac source history of stroke since 2017 with dysphagia status post PEG tube Hypertension Hyperlipidemia Diabetes mellitus History of paroxysmal atrial fibrillation, was on Eliquis History of stroke Plan: This is a pleasant 69 years old female who presents with multiple problems including COPD exacerbation and hypercapnia. AMS. UTI. Multiple several strokes.Continue with aspirin and Lipitor. I would consider restarting anticoagulation in hemoglobin stabilized. Check iron studies and occult blood in stool . Continue with steroids, bronchodilator. Continue with antibiotic. Continue with BiPAP as needed with pulmonary consult. Follow-up recommendation by cardiology and neurology , follow-up neurology workup off EEG, carotid duplex and echocardiogram . Continue with gentle hydration . Consult surgery team to rule out GI bleed Labs and medication were reviewed.. Continue same treatment. Continue with symptomatic treatment. Resume home medication. Monitor lytes and vitals. DVT and GI prophylaxis. Further recommendations depends on the clinical course of the patient DVT prophylaxis: Eliquis IS HELD FOR ANEMIA GI Prophylaxis: ppi Prognosis is guarded
--- NOTE | 2020-06-19 14:30 | P.PN ---
Subjective Progress Note Date: 06/19/20 Principal diagnosis: Altered mental status, acute on chronic hypoxic and hypercapnic respiratory failure 69-year-old white female patient with multiple chronic medical conditions, including atrial fibrillation, previous history of CVA with right-sided hemiplegia, dysphagia, status post PEG tube placement in 2017, diabetes mellitus, hypertension, hyperlipidemia, morbid obesity, difficulty with mobility, patient is a [facility] resident, she has a legal guardian, and were told that she is nonverbal at her baseline. Patient was brought into the emergency department on 06/16/2020 for evaluation of altered mental status. Apparently there was a concern for possible aspiration. Patient was febrile on presentation with a temp of 100F, she was hypoxic with a pulse ox of 88% on 4 L. Lab work revealed leukocytosis with a white count of 12.8, hemoglobin was 8, troponin was negative at less than 0.012, proBNP was 2730, urinalysis was suspicious for infection. Coronavirus rapid screen was negative. Chest x-ray revealed cardiomegaly, mild pleural reaction at the right lung base, some coarsening of the lung markings. Left axillary pacemaker was noted. Was a slight blunting of the right costophrenic angle. Brain CT showed bilateral old infarcts in the right and left parietal lobes and right occipital lobe. There was cerebral atrophy. EKG showed normal sinus rhythm with sinus arrhythmia with evidence of septal infarct of undetermined age. She was quite lethargic, blood gas revealed pO2 of 296, pCO2 of 89, and pH of 7.23, this was done on 100% FiO2. Patient is placed on AVAPS, currently with FiO2 of 35%. She was started on Rocephin for possibility of urinary tract infection, she is on IV steroids, she was fluid resuscitated for possibility of urinary tract infection with sepsis. Urine drug screen was negative. Patient continued to have altered mentation, neurology evaluation was completed, please refer to their consultation. Echocardiogram showed moderate concentric LVH, EF between 65-70%, mild TR, mild pulmonary hypertension, with right-sided pressures of 42 mmHg. Carotid Doppler completed showing suboptimal evaluation due to large body habitus, patient condition and tortuous internal carotid arteries. Increased flow parameters on the bilateral internal carotid artery suggested 50-69% stenosis. Today patient was seen by us for the first time in evaluation and she is stuporous, remains on AVAPS mode of an NIPPV ventilation. She was switched over to BiPAP mode of ventilation with pressures of 14 and 5 and FiO2 of 35%, repeat blood gas was ordered, and within about 5-10 minutes she is already starting to become more responsive. She is achieving pressures of 350-400 mL, minute ventilation of 5-6 L/m, with a respiratory rate of 17, patient is starting to open eyes. The patient is seen today 06/18/2020 in follow-up on the selective care unit. She is more awake and alert today. She is nonverbal. Difficult to assess her overall mental status. She is maintaining good O2 saturations on 4 L nasal cannula at 97%. She's been afebrile. Hemodynamically stable. She did utilize BiPAP last evening. Urine culture is positive for gram-negative bacilli. Blood culture reveals no growth to date. White count 11.2. Hemoglobin 7.8. Sodium 141. Potassium 5.5. Creatinine 0.45. Currently on antibiotics in the form of meropenem. Remains on bronchodilators and IV Solu-Medrol. 0.9 normal saline at 75 ML's per hour. The patient is seen today 06/19/2020 in follow-up on the selective care unit. She is currently awake. She is answering some yes and no questions. She is more vocal today compared to yesterday. He is now maintaining O2 saturations up to 100% on 2 L/m per nasal cannula. She's afebrile. Urine culture positive for ESBL, E. coli. Blood glucose 249. She remains on meropenem. Continued on bronchodilators and IV Solu-Medrol. Objective - Vital Signs Vital signs: Vital Signs Temp 97.5 F L 06/19/20 08:00 Pulse 68 06/19/20 12:30 Resp 18 06/19/20 08:00 BP 170/70 06/19/20 08:00 Pulse Ox 100 06/19/20 08:32 Intake & Output 06/18/20 06/19/20 06/19/20 18:59 06:59 18:59 Intake Total 0 Output Total 300 1200 Balance -300 -1200 Weight 120.5 kg 120 kg Intake: Oral 0 Output: Urine 300 1200 Other: Voiding Method Indwelling Catheter Indwelling Catheter - Exam GENERAL EXAM: Awake, alert, answering brief yes no questions today, 69-year-old morbidly obese white female, on 2 L nasal cannula with O2 saturation 100% HEAD: Normocephalic/atraumatic. EYES: Normal reaction of pupils, equal size. Conjunctiva pink, sclera white. NOSE: Clear with pink turbinates. THROAT: No erythema or exudates. NECK: No masses, no JVD, no thyroid enlargement, no adenopathy. CHEST: No chest wall deformity. Symmetrical expansion. LUNGS: Equal air entry with no crackles, wheeze, rhonchi or dullness. CVS: Regular rate and rhythm, normal S1 and S2, no gallops, no murmurs, no rubs ABDOMEN: Soft, nontender. No hepatosplenomegaly, normal bowel sounds, no guarding or rigidity. PEG tube in place EXTREMITIES: No clubbing, no edema, no cyanosis, 2+ pulses and upper and lower extremities. MUSCULOSKELETAL: Residual right-sided weakness from previous CVA. SPINE: No scoliosis or deformity SKIN: No rashes CENTRAL NERVOUS SYSTEM: History of multiple CVAs with residual right-sided weakness, Nonverbal. - Labs CBC & Chem 7: 06/18/20 09:31 06/18/20 09:31 Labs: Abnormal Lab Results - Last 24 Hours (Table) 06/16/20 06/18/20 06/18/20 Range/Units 21:08 16:53 20:13 POC Glucose (mg/dL) 226 H 221 H (75-99) mg/dL Iron 14 L (50-170) ug/dL % Saturation 3.55 L (12.00-45.00) Ferritin 5.4 L (10.0-291.0) ng/mL 06/18/20 06/19/20 06/19/20 Range/Units 23:24 06:07 11:51 POC Glucose (mg/dL) 199 H 231 H 249 H (75-99) mg/dL Iron (50-170) ug/dL % Saturation (12.00-45.00) Ferritin (10.0-291.0) ng/mL Microbiology - Last 24 Hours (Table) 06/16/20 21:08 Urine Culture - Final Urine,Voided Escherichia coli 06/16/20 23:35 Blood Culture - Preliminary Blood No Growth after 48 hours Assessment and Plan Assessment: #1. Acute on chronic hypercapnic respiratory failure, related to acute urinary tract infection #2. Chronic hypercapnic respiratory failure related to obesity hypoventilation syndrome, possibility of obstructive sleep apnea #3. History of multiple old strokes, and bilateral parietal and right occipital, with history of right-sided weakness, dysphagia, and aphasia #4. History of dysphagia, status post PEG tube placement #5. Patient is nonverbal and bedbound, and is a resident of a local [facility]. She has a legal guardian #6. Chronic anemia #7. History of atrial fibrillation, currently in sinus rhythm, on chronic anticoagulation with Eliquis, history of permanent pacemaker implantation #8. History of hypertension #9. Hyperlipidemia #10. 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 History of lumbar fusion #12. Morbid obesity #13. Previous history of ESBL urinary tract infection Plan: The patient was seen and evaluated by Dr. Chambers She is more awake and alert today, more vocal Maintaining good O2 saturations in the 90s on 2 L/m per nasal cannula Utilizing the BiPAP at night and while napping Continue the current treatment plan Titrate down the FiO2 to maintain O2 saturations greater than 92% We will continue to follow I, the cosigning physician, performed a history & physical examination of the patient. Lungs sounds are clear but diminished. Maintaining good O2 saturations in the 90s on 2 L/m per nasal cannula. I discussed the assessment and plan of care with my nurse practitioner, Cecille Caraballo. I attest to the above note as dictated by her.
[2020-06-19 14:43] LABS: African American GFR (CKD) >90 (>60 ml/min/1.73 sqM); Anion Gap 1 mmol/L; Blood Urea Nitrogen 36 mg/dL (7-17); Carbon Dioxide 36 mmol/L (22-30); Chloride 103 mmol/L (98-107); Glucose 238 mg/dL (74-99); Non-African American GFR(CKD) >90 (>60 ml/min/1.73 sqM); Potassium 4.9 mmol/L (3.5-5.1); Sodium 140 mmol/L (137-145)
[2020-06-19 14:45] LABS: Anisocytosis Slight; HCT 29.3 % (34.0-46.0); Hypochromasia Marked; MCHC 27.3 g/dL (31.0-37.0); MCV 80.5 fL (80.0-100.0); Microcytosis Slight; Platelet Count 189 k/uL (150-450); Poikilocytosis Marked; RBC 3.63 m/uL (3.80-5.40)
[2020-06-19] MEDS: ATORVASTATIN 40 MG TAB PEG/G-TUBE SCH (15:02)
[2020-06-19] MEDS: INSULIN DETEMIR (LEVEMIR) 100 UNIT/ML SYR SQ SCH (15:02)
[2020-06-19 15:12] LABS: Band Neutrophils % 4 %; Monocytes # (M) 0.24 k/uL (0-1.0); Neutrophils % (M) 86 %; Nucleated Red Blood Cells 3 /100 WBC (0-0); Total Cells Counted 200
[2020-06-19 15:13] LABS: Anisocytosis (M) Present; Lymphocytes # (M) 0.41 k/uL (1.0-4.8); Polychromasia Present; Stomatocytes Present; WBC 5.9 k/uL (3.8-10.6)
[2020-06-19 17:18] LABS: Glucose,Whole Blood 229 mg/dL (75-99)
[2020-06-19 23:14] LABS: Glucose,Whole Blood 266 mg/dL (75-99)
[2020-06-20] MEDS: MEROPENEM 1 GM in SODIUM CHLORIDE 0.9% 100 ML IVPB SCH ×3 (02:57→17:45)
[2020-06-20] MEDS: SODIUM CHLORIDE 0.9% 1,000 ML IV SCH ×2 (05:24→15:26)
[2020-06-20 06:22] LABS: Glucose,Whole Blood 179 mg/dL (75-99)
[2020-06-20] MEDS: INSULIN ASPART (NovoLOG) 100 UNIT/ML VIAL SQ SCH ×3 (06:35→18:14)
[2020-06-20] MEDS: INSULIN DETEMIR (LEVEMIR) 100 UNIT/ML SYR SQ SCH (06:35)
[2020-06-20] MEDS: IPRATROPIUM-ALBUTEROL 3 ML NEB INHALATION SCH ×4 (09:28→20:22)
[2020-06-20 10:24] LABS: African American GFR (CKD) >90 (>60 ml/min/1.73 sqM); Anion Gap 2 mmol/L; Blood Urea Nitrogen 37 mg/dL (7-17); Calcium 8.9 mg/dL (8.4-10.2); Carbon Dioxide 35 mmol/L (22-30); Chloride 105 mmol/L (98-107); Glucose 143 mg/dL (74-99); Non-African American GFR(CKD) >90 (>60 ml/min/1.73 sqM); Potassium 4.6 mmol/L (3.5-5.1); Sodium 142 mmol/L (137-145)
[2020-06-20] MEDS: methylPREDNISolone SOD SUCCI 40 MG/ML 1 ML VIAL IV SCH ×2 (10:24→21:37)
[2020-06-20] MEDS: lisinopriL 20 MG TAB PEG/G-TUBE SCH (10:24)
[2020-06-20] MEDS: ASPIRIN 81 MG PO SCH (10:24)
[2020-06-20] MEDS: PANTOPRAZOLE 40 MG/10 ML VIAL IVP SCH (10:24)
[2020-06-20] MEDS: CYANOCOBALAMIN 500 MCG TAB PEG/G-TUBE SCH (10:24)
[2020-06-20] MEDS: FUROSEMIDE 20 MG TAB PEG/G-TUBE SCH (10:24)
[2020-06-20] MEDS: METOPROLOL TARTRATE 50 MG TAB PEG/G-TUBE SCH ×2 (10:24→21:37)
[2020-06-20] MEDS: ATORVASTATIN 40 MG TAB PEG/G-TUBE SCH (10:24)
[2020-06-20 10:54] LABS: Anisocytosis Slight; HCT 29.6 % (34.0-46.0); HGB 8.6 gm/dL (11.4-16.0); Hypochromasia Marked; MCH 22.8 pg (25.0-35.0); MCHC 29.1 g/dL (31.0-37.0); MCV 78.3 fL (80.0-100.0); Mean Platelet Volume 10.5; Microcytosis Slight; Platelet Count 197 k/uL (150-450); Poikilocytosis Marked; RBC 3.77 m/uL (3.80-5.40); RDW 18.6 % (11.5-15.5)
[2020-06-20 12:01] LABS: Glucose,Whole Blood 150 mg/dL (75-99)
--- NOTE | 2020-06-20 12:19 | P.GSCN ---
History of Present Illness Consult date: 06/20/20 Reason for Consult: This is a 69-year-old female who presents to the hospital. Patient does not have chronic anemia. She is unable to give any medical history. She has atrial fibrillation. Past Medical History Past Medical History: Atrial Fibrillation, CVA/TIA, Diabetes Mellitus, Deep Vein Thrombosis (DVT), Eye Disorder, GERD/Reflux, Hyperlipidemia, Hypertension, Pneumonia Additional Past Medical History / Comment(s): HOSPITALIZED 03/02-03/08/17 FOR LETHARGY,UTI WITH METABOLIC ENCEPHALOPATHY. , HX OF CVA WITH RIGHT SIDED WEAKNESS ,PAST HX OF DECUBITUS ULCERS ON COCCYX & HEELS ,JUDSON LIFT USED TO M OVE TO WHEELCHAIR.,INCONTINENT., , STATES PT WILL ANSWER YES OR NO -SIMPLE QUESTIONS BUT UNSURE IF SHE COMPREHENDS., HX OF UTI'S. , BLIND RIGHT EYE, POOR VISION LEFT EYE., DIABETIC RETINOPATHY, HX OF SSS WITH PACEMAKER., PATIENT HAS GASTRIC PEG TUBE FOR FEEDINGS WHICH HAS BROKEN OFF AND HAS A SHORT TUBE. History of Any Multi-Drug Resistant Organisms: ESBL Year Discovered:: 06/16/20 MDRO Source:: Urine Past Surgical History: Appendectomy, Back Surgery, Section, Cholecystectomy, Hernia Repair, Pacemaker, Tubal Ligation Additional Past Surgical History / Comment(s): RT EYE SURG for diabetic retinopathy, lumbar fusion, PAPO FOOT SPUR SURG. Picc insertion. Past Anesthesia/Blood Transfusion Reactions: No Reported Reaction Type of Cardiac Device: Permanent Pacemaker Device Placement Date:: march 2017 Past Psychological History: No Psychological Hx Reported Smoking Status: Never smoker Past Alcohol Use History: None Reported Past Drug Use History: None Reported - Past Family History Mother Family Medical History: Cancer, Diabetes Mellitus Additional Family Medical History / Comment(s): mother is . Father History Unknown: Yes Daughter(s) Family Medical History: Diabetes Mellitus Medications and Allergies Home Medications Medication Instructions Recorded Confirmed Type Magnesium Hydroxide [Milk of 2,400 ml PEG/G-TUBE DAILY PRN 03/02/17 06/16/20 History Magnesia] Apixaban [Eliquis] 5 mg PEG/G-TUBE BID 03/23/17 06/16/20 History lisinopriL [Prinivil] 20 mg PEG/G-TUBE DAILY 04/06/17 06/16/20 History Nitroglycerin Sl Tabs [Nitrostat] 0.4 mg SUBLINGUAL Q5M PRN tab 04/13/17 06/16/20 Rx Cholecalciferol [Vitamin D3] 4,000 unit PO DAILY@1400 07/26/18 06/16/20 History Famotidine [Pepcid] 20 mg PEG/G-TUBE DAILY@1400 07/26/18 06/16/20 History Furosemide [Lasix] 20 mg PEG/G-TUBE DAILY 07/26/18 06/16/20 History Metoprolol Tartrate [Lopressor] 50 mg PEG/G-TUBE BID 07/26/18 06/16/20 History Simvastatin [Zocor] 10 mg PEG/G-TUBE DAILY@1400 07/26/18 06/16/20 History metFORMIN HCL 1,000 mg PEG/G-TUBE BID 07/26/18 06/16/20 History Insulin Detemir [Levemir Flextouch] 44 units SQ DAILY 06/16/20 06/16/20 History Insulin Detemir [Levemir Flextouch] 48 units PEG/G-TUBE DAILY@1400 06/16/20 06/16/20 History Lactobacillus Acidophilus 1 tab PEG/G-TUBE DAILY 06/16/20 06/16/20 History [Acidophilus] Multivitamin with Iron 1 tab PEG/G-TUBE DAILY@1400 06/16/20 06/16/20 History [Multivitamins with Iron] sitaGLIPtin [Januvia] 100 mg PEG/G-TUBE DAILY 06/16/20 06/16/20 History Allergies Allergy/AdvReac Type Severity Reaction Status Date / Time No Known Allergies Allergy Verified 06/16/20 23:17 Surgical - Exam Vital Signs Temp Pulse Resp BP Pulse Ox 100.0 F H 60 10 L 110/21 88 L 06/16/20 20:36 06/16/20 20:36 06/16/20 20:36 06/16/20 20:36 06/16/20 20:36 Obese - General well developed, well nourished, no distress - Eyes PERRL - ENT normal pinna - Neck no masses - Respiratory normal expansion - Cardiovascular Rhythm: regular - Abdomen Abdomen: soft, non tender Results - Labs 06/20/20 09:30 06/20/20 09:30 Abnormal Lab Results - Last 24 Hours (Table) 11/06/19/20 06/19/20 Range/Units 13:50 13:50 17:11 RBC 3.63 L (3.80-5.40) m/uL Hgb 8.0 L (11.4-16.0) gm/dL Hct 29.3 L (34.0-46.0) % MCV (80.0-100.0) fL MCH 22.0 L (25.0-35.0) pg MCHC 27.3 L (31.0-37.0) g/dL RDW 19.0 H (11.5-15.5) % Lymphocytes # (Manual) 0.41 L (1.0-4.8) k/uL Nucleated RBCs 3 H (0-0) /100 WBC Carbon Dioxide 36 H (22-30) mmol/L BUN 36 H (7-17) mg/dL Creatinine (0.52-1.04) mg/dL Glucose 238 H (74-99) mg/dL POC Glucose (mg/dL) 229 H (75-99) mg/dL 06/19/20 06/20/20 06/20/20 Range/Units 23:13 06:07 09:30 RBC 3.77 L (3.80-5.40) m/uL Hgb 8.6 L (11.4-16.0) gm/dL Hct 29.6 L (34.0-46.0) % MCV 78.3 L (80.0-100.0) fL MCH 22.8 L (25.0-35.0) pg MCHC 29.1 L (31.0-37.0) g/dL RDW 18.6 H (11.5-15.5) % Lymphocytes # (Manual) (1.0-4.8) k/uL Nucleated RBCs (0-0) /100 WBC Carbon Dioxide (22-30) mmol/L BUN (7-17) mg/dL Creatinine (0.52-1.04) mg/dL Glucose (74-99) mg/dL POC Glucose (mg/dL) 266 H 179 H (75-99) mg/dL 06/20/20 06/20/20 Range/Units 09:30 11:59 RBC (3.80-5.40) m/uL Hgb (11.4-16.0) gm/dL Hct (34.0-46.0) % MCV (80.0-100.0) fL MCH (25.0-35.0) pg MCHC (31.0-37.0) g/dL RDW (11.5-15.5) % Lymphocytes # (Manual) (1.0-4.8) k/uL Nucleated RBCs (0-0) /100 WBC Carbon Dioxide 35 H (22-30) mmol/L BUN 37 H (7-17) mg/dL Creatinine 0.42 L (0.52-1.04) mg/dL Glucose 143 H (74-99) mg/dL POC Glucose (mg/dL) 150 H (75-99) mg/dL Microbiology - Last 24 Hours (Table) 06/16/20 23:35 Blood Culture - Preliminary Blood No Growth after 72 hours Diabetes panel 06/19/20 06/20/20 Range/Units 13:50 09:30 Sodium 140 142 (137-145) mmol/L Potassium 4.9 4.6 (3.5-5.1) mmol/L Chloride 103 105 (98-107) mmol/L Carbon Dioxide 36 H 35 H (22-30) mmol/L BUN 36 H 37 H (7-17) mg/dL Creatinine 0.53 0.42 L (0.52-1.04) mg/dL Glucose 238 H 143 H (74-99) mg/dL Calcium 9.0 8.9 (8.4-10.2) mg/dL Calcium panel 06/19/20 06/20/20 Range/Units 13:50 09:30 Calcium 9.0 8.9 (8.4-10.2) mg/dL Pituitary panel 06/19/20 06/20/20 Range/Units 13:50 09:30 Sodium 140 142 (137-145) mmol/L Potassium 4.9 4.6 (3.5-5.1) mmol/L Chloride 103 105 (98-107) mmol/L Carbon Dioxide 36 H 35 H (22-30) mmol/L BUN 36 H 37 H (7-17) mg/dL Creatinine 0.53 0.42 L (0.52-1.04) mg/dL Glucose 238 H 143 H (74-99) mg/dL Calcium 9.0 8.9 (8.4-10.2) mg/dL Adrenal panel 06/19/20 06/20/20 Range/Units 13:50 09:30 Sodium 140 142 (137-145) mmol/L Potassium 4.9 4.6 (3.5-5.1) mmol/L Chloride 103 105 (98-107) mmol/L Carbon Dioxide 36 H 35 H (22-30) mmol/L BUN 36 H 37 H (7-17) mg/dL Creatinine 0.53 0.42 L (0.52-1.04) mg/dL Glucose 238 H 143 H (74-99) mg/dL Calcium 9.0 8.9 (8.4-10.2) mg/dL Assessment and Plan Assessment: Chronic anemia. Patient's hemoglobin has been in the 8 range. She should have an EGD and colonoscopy when stable.
[2020-06-20 14:48] LABS: Band Neutrophils % 1 %; Neutrophils % (M) 73 %; Nucleated Red Blood Cells 2 /100 WBC (0-0); Total Cells Counted 200
[2020-06-20 14:49] LABS: Lymphocytes # (M) 1.16 k/uL (1.0-4.8); Monocytes # (M) 0.68 k/uL (0-1.0); WBC 6.8 k/uL (3.8-10.6)
--- NOTE | 2020-06-20 17:18 | P.PN ---
Subjective Progress Note Date: 06/20/20 Principal diagnosis: Altered mental status, acute on chronic hypoxic and hypercapnic respiratory failure 69-year-old white female patient with multiple chronic medical conditions, including atrial fibrillation, previous history of CVA with right-sided hemiplegia, dysphagia, status post PEG tube placement in 2017, diabetes mellitus, hypertension, hyperlipidemia, morbid obesity, difficulty with mobility, [facility] is a [facility], she has a legal guardian, and were told that she is nonverbal at her baseline. Patient was brought into the emergency department on 06/16/2020 for evaluation of altered mental status. Apparently there was a concern for possible aspiration. Patient was febrile on presentation with a temp of 100F, she was hypoxic with a pulse ox of 88% on 4 L. Lab work revealed leukocytosis with a white count of 12.8, hemoglobin was 8, troponin was negative at less than 0.012, proBNP was 2730, urinalysis was suspicious for infection. Coronavirus rapid screen was negative. Chest x-ray revealed cardiomegaly, mild pleural reaction at the right lung base, some coarsening of the lung markings. Left axillary pacemaker was noted. Was a slight blunting of the right costophrenic angle. Brain CT showed bilateral old infarcts in the right and left parietal lobes and right occipital lobe. There was cerebral atrophy. EKG showed normal sinus rhythm with sinus arrhythmia with evidence of septal infarct of undetermined age. She was quite lethargic, blood gas revealed pO2 of 296, pCO2 of 89, and pH of 7.23, this was done on 100% FiO2. Patient is placed on AVAPS, currently with FiO2 of 35%. She was started on Rocephin for possibility of urinary tract infection, she is on IV steroids, she was fluid resuscitated for possibility of urinary tract infection with sepsis. Urine drug screen was negative. Patient continued to have altered mentation, neurology evaluation was completed, please refer to their consultation. Echocardiogram showed moderate concentric LVH, EF between 65-70%, mild TR, mild pulmonary hypertension, with right-sided pressures of 42 mmHg. Carotid Doppler completed showing suboptimal evaluation due to large body habitus, patient condition and tortuous internal carotid arteries. Increased flow parameters on the bilateral internal carotid artery suggested 50-69% stenosis. Today patient was seen by us for the first time in evaluation and she is stuporous, remains on AVAPS mode of an NIPPV ventilation. She was switched over to BiPAP mode of ventilation with pressures of 14 and 5 and FiO2 of 35%, repeat blood gas was ordered, and within about 5-10 minutes she is already starting to become more responsive. She is achieving pressures of 350-400 mL, minute ventilation of 5-6 L/m, with a respiratory rate of 17, patient is starting to open eyes. The patient is seen today 06/18/2020 in follow-up on the selective care unit. She is more awake and alert today. She is nonverbal. Difficult to assess her overall mental status. She is maintaining good O2 saturations on 4 L nasal cannula at 97%. She's been afebrile. Hemodynamically stable. She did utilize BiPAP last evening. Urine culture is positive for gram-negative bacilli. Blood culture reveals no growth to date. White count 11.2. Hemoglobin 7.8. Sodium 141. Potassium 5.5. Creatinine 0.45. Currently on antibiotics in the form of meropenem. Remains on bronchodilators and IV Solu-Medrol. 0.9 normal saline at 75 ML's per hour. The patient is seen today 06/19/2020 in follow-up on the selective care unit. She is currently awake. She is answering some yes and no questions. She is more vocal today compared to yesterday. He is now maintaining O2 saturations up to 100% on 2 L/m per nasal cannula. She's afebrile. Urine culture positive for ESBL, E. coli. Blood glucose 249. She remains on meropenem. Continued on bronchodilators and IV Solu-Medrol. The patient is seen today 06/20/2020 in follow-up on the selective care unit. She is currently resting comfortably in bed. Awake and alert in no acute distress. Answering some yes no questions. Maintaining O2 saturations in the mid 90s on room air. White count 6.8. Hemoglobin 8.6. Sodium 142. Potassium 4.6. Creatinine 0.42. Objective - Vital Signs Vital signs: Vital Signs Temp 98.3 F 06/20/20 08:00 Pulse 68 06/20/20 16:44 Resp 20 06/20/20 12:00 BP 114/49 06/20/20 12:00 Pulse Ox 96 06/20/20 12:00 Intake & Output 06/19/20 06/20/20 06/20/20 18:59 06:59 18:59 Intake Total 1015 Output Total 1600 700 Balance -585 -700 Weight 120 kg Intake: IV 450 Sodium Chloride 0.9% 1, 450 000 ml @ 75 mls/hr IV . [id number] [facility] Rx#:[id number] Intake, IV Titration 200 Amount Meropenem 1 gm In Sodium 200 Chloride 0.9% 100 ml @ 33 .3 mls/hr IVPB Q8H [facility] Rx #:[id number] Oral 365 Output: Urine 1600 700 Other: Voiding Method Indwelling Catheter Indwelling Catheter Indwelling Catheter - Exam GENERAL EXAM: Awake, alert, answering brief yes no questions today, 69-year-old morbidly obese white female, on room air with O2 saturations in the mid 90s HEAD: Normocephalic/atraumatic. EYES: Normal reaction of pupils, equal size. Conjunctiva pink, sclera white. NOSE: Clear with pink turbinates. THROAT: No erythema or exudates. NECK: No masses, no JVD, no thyroid enlargement, no adenopathy. CHEST: No chest wall deformity. Symmetrical expansion. LUNGS: Equal air entry with no crackles, wheeze, rhonchi or dullness. CVS: Regular rate and rhythm, normal S1 and S2, no gallops, no murmurs, no rubs ABDOMEN: Soft, nontender. No hepatosplenomegaly, normal bowel sounds, no guarding or rigidity. PEG tube in place EXTREMITIES: No clubbing, no edema, no cyanosis, 2+ pulses and upper and lower extremities. MUSCULOSKELETAL: Residual right-sided weakness from previous CVA. SPINE: No scoliosis or deformity SKIN: No rashes CENTRAL NERVOUS SYSTEM: History of multiple CVAs with residual right-sided weakness, Nonverbal. - Labs CBC & Chem 7: 06/20/20 09:30 06/20/20 09:30 Labs: Abnormal Lab Results - Last 24 Hours (Table) 06/19/20 06/19/20 06/20/20 Range/Units 17:11 23:13 06:07 RBC (3.80-5.40) m/uL Hgb (11.4-16.0) gm/dL Hct (34.0-46.0) % MCV (80.0-100.0) fL MCH (25.0-35.0) pg MCHC (31.0-37.0) g/dL RDW (11.5-15.5) % Nucleated RBCs (0-0) /100 WBC Carbon Dioxide (22-30) mmol/L BUN (7-17) mg/dL Creatinine (0.52-1.04) mg/dL Glucose (74-99) mg/dL POC Glucose (mg/dL) 229 H 266 H 179 H (75-99) mg/dL 06/20/20 06/20/20 06/20/20 Range/Units 09:30 09:30 11:59 RBC 3.77 L (3.80-5.40) m/uL Hgb 8.6 L (11.4-16.0) gm/dL Hct 29.6 L (34.0-46.0) % MCV 78.3 L (80.0-100.0) fL MCH 22.8 L (25.0-35.0) pg MCHC 29.1 L (31.0-37.0) g/dL RDW 18.6 H (11.5-15.5) % Nucleated RBCs 2 H (0-0) /100 WBC Carbon Dioxide 35 H (22-30) mmol/L BUN 37 H (7-17) mg/dL Creatinine 0.42 L (0.52-1.04) mg/dL Glucose 143 H (74-99) mg/dL POC Glucose (mg/dL) 150 H (75-99) mg/dL Microbiology - Last 24 Hours (Table) 06/16/20 23:35 Blood Culture - Preliminary Blood No Growth after 72 hours Assessment and Plan Assessment: #1. Acute on chronic hypercapnic respiratory failure related to possible sepsis from urinary tract infection #2. Chronic hypercapnic respiratory failure related to obesity hypoventilation syndrome, possibility of obstructive sleep apnea #3. History of multiple old strokes, and bilateral parietal and right occipital, with history of right-sided weakness, dysphagia, and aphasia #4. History of dysphagia, status post PEG tube placement #5. Patient is nonverbal and bedbound, and is a resident of a local [facility]. She has a legal guardian #6. Chronic anemia #7. History of atrial fibrillation, currently in sinus rhythm, on chronic anticoagulation with Eliquis, history of permanent pacemaker implantation #8. History of hypertension #9. Hyperlipidemia #10. 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 History of lumbar fusion #12. Morbid obesity #13. Previous history of ESBL urinary tract infection Plan: The patient was seen and evaluated by Dr. Chambers She is more awake and alert today, more vocal Maintaining good O2 saturations in the 90s on room air Cleared for transfer to the ECF once cleared medically I, the cosigning physician, performed a history & physical examination of the patient. Lungs sounds are clear but diminished. Maintaining good O2 saturations in the 90s on room air. I discussed the assessment and plan of care with my nurse practitioner, Cecille Caraballo. I attest to the above note as dictated by her.
[2020-06-20 17:59] LABS: Glucose,Whole Blood 342 mg/dL (75-99)
--- NOTE | 2020-06-20 20:55 | P.PN ---
Subjective This is a pleasant 69 years old female with past medical history of stroke since 2017 with dysphagia status post PEG tube. Other medical problems including atrial fibrillation, DVT, GERD, hyperlipidemia, hypertension. Presents because of altered mental status and low-grade fever. Patient could not provide information and were obtained from the chart. As per documentation was presented because of altered mental status with Schiller respiration and there was concerns for aspiration. He came from [facility]. Patient does not follow, and currently. He had a temperature of 100.0 upon admission. He was also hypoxic 88% on 4 L oxygen dependent and a cannula, came up to 99% on 10 L Labs showing mild leukocytosis of 12.8, hemoglobin is 8.0, platelet is normal. INR is 1.1, ABG showing low pH of 7.2 and high pCO2 of 89 and bicarb of 38, oxygen is 296. Potassium slightly elevated at 5.6, creatinine is normal 0.65. Liver enzymes not elevated. Troponin is negative less than 0.012. C-reactive protein is slightly elevated at 19, lactate dehydrogenase is normal at 453. ProBNP is 2730. Urinalysis is suspicious for infection. Urinary tract screen is negative Coronal virus not detected EKG showed normal sinus rhythm at [address]-T changes CT of the brain: Bilateral old infarcts in the right and left parietal lobes and the right occipital lobe. Right parietal infarct not change compared to old exam. The other infarcts appear new. Cerebral atrophy Patient already has been evaluated by neurologist recommended cardiology evaluation for possible cardioembolic source In the emergency room patient was started on ceftriaxone, Solu-Medrol 60 mg and he received 2 L of normal saline and then continued at 100 mL per hour. Also he was started on BiPAP there was concern for anemia with a low hemoglobin at 8.0. 06/18/2020 Patient still nonverbal she opens eyes to verbal and tactile stimuli but she do es not follow command. She still needed and BiPAP this morning. She still have altered mental status EEG showing moderate to severe encephalopathy but no epileptiform discharge. Carotid duplex showing bilateral carotid artery stenosis about 50-69%. Echocardiogram showing ejection fraction of 65-70% with LV wall hypokinesia. Urine culture is growing gram-negative bacilli and currently she is on meropenem for possible ESBL Eliquis is still on hold because of possible GI bleed and significant anemia. Anemia workup still undergoing, occult blood in stool is pending. Cardiology and neurology on the case for her altered mental status and multiple strokes to rule out cardiac source of emboli. Covid test is negative I discussed the case with her daughter miss PURVIS at [phone]. 06/19/2020 Patient is awake and alert today, she opens eyes spontaneously, she couldn't tell the name, surgical felt that she isn't [facility] and answer other questions appropriately, she follows commands. Breathing is easier today. Generally she feels good. She denies chest pain or abdominal pain she has 1+ leg edema. Blood pressure is 170/70, rest of Vitas looks stable. Sugar is slightly elevated. She was on Levemir 44 units and Januvia 100 mg of metformin 1000 mg twice a day, also she is currently on steroids. We are going to resume her insulin and monitor closely. Urine is going ESBL E. coli which is sensitive to meropenem. Eliquis is still on hold for possible GI bleed, surgery team were consulted for low hemoglobin. Cardiology team on the case. Check labs today. 06/20/2020 Patient clinically looks same as yesterday, she is awake she can say she is in [facility] however she still not fully oriented to the surrounding. She follows some commands but not every single one. She does not have respiratory distress and her hemodynamics are stable. Her urine culture is going ESBL E. coli and she is on appropriate antibiotics with me upon them. Surgeon input is appreciated and they recommended EGD/colonoscopy to rule out GI bleed. Because of her anemia her Eliquis is on hold for now. Hemoglobin is slightly trending up today to 8.6. WBC is back to normal patient can be transferred from the select unit to the general medical floor Objective - Vital Signs Vital signs: Vital Signs Temp 98.3 F 06/20/20 08:00 Pulse 72 06/20/20 09:40 Resp 20 06/20/20 08:00 BP 144/70 06/20/20 08:00 Pulse Ox 98 06/20/20 08:00 Intake & Output 06/19/20 06/20/20 06/20/20 18:59 06:59 18:59 Intake Total 1015 Output Total 1600 700 Balance -585 -700 Weight 120 kg Intake: IV 450 Sodium Chloride 0.9% 1, 450 000 ml @ 75 mls/hr IV . [id number] BONNY Rx#:[id number] Intake, IV Titration 200 Amount Meropenem 1 gm In Sodium 200 Chloride 0.9% 100 ml @ 33 .3 mls/hr IVPB Q8H [facility] Rx #:[id number] Oral 365 Output: Urine 1600 700 Other: Voiding Method Indwelling Catheter Indwelling Catheter Indwelling Catheter - Exam -GENERAL: The patient is more awake, follows commands to some extent HEENT: Pupils are round and equally reacting to light. EOMI. No scleral icterus. No conjunctival pallor. Normocephalic, atraumatic. No pharyngeal erythema. No thyromegaly. CARDIOVASCULAR: S1 and S2 present. No murmurs, rubs, or gallops. -PULMONARY: Chest is clear to auscultation, Mr. air entry -ABDOMEN: Soft, nontender, nondistended, normoactive bowel sounds. No palpable organomegaly. PEG tube is in place MUSCULOSKELETAL: No joint swelling or deformity. EXTREMITIES: No cyanosis, clubbing, or pedal edema. NEUROLOGICAL: Gross neurological examination did not reveal any focal deficits. SKIN: No rashes. No petechiae - Labs CBC & Chem 7: 06/20/20 09:30 06/20/20 09:30 Labs: Abnormal Lab Results - Last 24 Hours (Table) 06/19/20 06/19/20 06/19/20 Range/Units 13:50 13:50 17:11 RBC 3.63 L (3.80-5.40) m/uL Hgb 8.0 L (11.4-16.0) gm/dL Hct 29.3 L (34.0-46.0) % MCV (80.0-100.0) fL MCH 22.0 L (25.0-35.0) pg MCHC 27.3 L (31.0-37.0) g/dL RDW 19.0 H (11.5-15.5) % Lymphocytes # (Manual) 0.41 L (1.0-4.8) k/uL Nucleated RBCs 3 H (0-0) /100 WBC Carbon Dioxide 36 H (22-30) mmol/L BUN 36 H (7-17) mg/dL Creatinine (0.52-1.04) mg/dL Glucose 238 H (74-99) mg/dL POC Glucose (mg/dL) 229 H (75-99) mg/dL 06/19/20 06/20/20 06/20/20 Range/Units 23:13 06:07 09:30 RBC 3.77 L (3.80-5.40) m/uL Hgb 8.6 L (11.4-16.0) gm/dL Hct 29.6 L (34.0-46.0) % MCV 78.3 L (80.0-100.0) fL MCH 22.8 L (25.0-35.0) pg MCHC 29.1 L (31.0-37.0) g/dL RDW 18.6 H (11.5-15.5) % Lymphocytes # (Manual) (1.0-4.8) k/uL Nucleated RBCs (0-0) /100 WBC Carbon Dioxide (22-30) mmol/L BUN (7-17) mg/dL Creatinine (0.52-1.04) mg/dL Glucose (74-99) mg/dL POC Glucose (mg/dL) 266 H 179 H (75-99) mg/dL 06/20/20 06/20/20 Range/Units 09:30 11:59 RBC (3.80-5.40) m/uL Hgb (11.4-16.0) gm/dL Hct (34.0-46.0) % MCV (80.0-100.0) fL MCH (25.0-35.0) pg MCHC (31.0-37.0) g/dL RDW (11.5-15.5) % Lymphocytes # (Manual) (1.0-4.8) k/uL Nucleated RBCs (0-0) /100 WBC Carbon Dioxide 35 H (22-30) mmol/L BUN 37 H (7-17) mg/dL Creatinine 0.42 L (0.52-1.04) mg/dL Glucose 143 H (74-99) mg/dL POC Glucose (mg/dL) 150 H (75-99) mg/dL Microbiology - Last 24 Hours (Table) 06/16/20 23:35 Blood Culture - Preliminary Blood No Growth after 72 hours Assessment and Plan Assessment: Acute hypoxic, hypercapnic respiratory failure Acute COPD exacerbation Metabolic encephalopathy secondary to above Acute urinary tract infection, secondary to ESBL E. coli Hypochromic microcytic Anemia, rule out GI bleed Multiple strokes. Bilateral cerebral infarcts, they look old however they are new compared to old exam especially in the right occipital lobe and the left parietal lobe. Rule out cardiac source history of stroke since 2017 with dysphagia status post PEG tube Hypertension Hyperlipidemia Diabetes mellitus History of paroxysmal atrial fibrillation, was on Eliquis History of stroke Plan: This is a pleasant 69 years old female who presents with multiple problems including COPD exacerbation and hypercapnia. AMS. UTI. Multiple several strokes.Continue with aspirin and Lipitor. I would consider restarting anticoagulation in hemoglobin stabilized. Check iron studies and occult blood in stool . Continue with steroids, bronchodila tor. Continue with antibiotic. Continue with BiPAP as needed with pulmonary consult. Follow-up recommendation by cardiology and neurology , follow-up neurology workup off EEG, carotid duplex and echocardiogram . Continue with gentle hydration . Consult surgery team to rule out GI bleed. Possible EGD/colonoscopy when stable Labs and medication were reviewed.. Continue same treatment. Continue with symptomatic treatment. Resume home medication. Monitor lytes and vitals. DVT and GI prophylaxis. Further recommendations depends on the clinical course of the patient DVT prophylaxis: Eliquis IS HELD FOR ANEMIA GI Prophylaxis: ppi Prognosis is guarded
[2020-06-20 23:50] LABS: Glucose,Whole Blood 338 mg/dL (75-99)
[2020-06-21] MEDS: INSULIN ASPART (NovoLOG) 100 UNIT/ML VIAL SQ SCH ×4 (00:43→17:22)
[2020-06-21] MEDS: MEROPENEM 1 GM in SODIUM CHLORIDE 0.9% 100 ML IVPB SCH ×3 (02:43→17:18)
[2020-06-21 06:39] LABS: Glucose,Whole Blood 270 mg/dL (75-99)
[2020-06-21] MEDS: SODIUM CHLORIDE 0.9% 1,000 ML IV SCH ×2 (06:50→17:15)
[2020-06-21] MEDS: INSULIN DETEMIR (LEVEMIR) 100 UNIT/ML SYR SQ SCH (06:53)
[2020-06-21 08:19] LABS: Chloride 105 mmol/L (98-107)
[2020-06-21 08:22] LABS: African American GFR (CKD) >90 (>60 ml/min/1.73 sqM); Anion Gap 1 mmol/L; Blood Urea Nitrogen 35 mg/dL (7-17); Calcium 8.7 mg/dL (8.4-10.2); Carbon Dioxide 34 mmol/L (22-30); Glucose 232 mg/dL (74-99); Non-African American GFR(CKD) >90 (>60 ml/min/1.73 sqM); Potassium 4.4 mmol/L (3.5-5.1); Sodium 140 mmol/L (137-145)
[2020-06-21 08:35] LABS: Anisocytosis Slight; HCT 28.8 % (34.0-46.0); HGB 8.1 gm/dL (11.4-16.0); Hypochromasia Marked; MCH 22.1 pg (25.0-35.0); MCHC 28.1 g/dL (31.0-37.0); MCV 78.8 fL (80.0-100.0); Microcytosis Slight; Platelet Count 190 k/uL (150-450); Poikilocytosis Marked; RBC 3.66 m/uL (3.80-5.40); RDW 18.5 % (11.5-15.5)
[2020-06-21] MEDS ORDERED: INSULIN DETEMIR (LEVEMIR) 100 UNIT/ML SYR SQ ONE (09:00)
[2020-06-21] MEDS: IPRATROPIUM-ALBUTEROL 3 ML NEB INHALATION SCH ×4 (09:14→20:20)
[2020-06-21] MEDS: METOPROLOL TARTRATE 50 MG TAB PEG/G-TUBE SCH ×2 (09:42→20:18)
[2020-06-21] MEDS: PANTOPRAZOLE 40 MG/10 ML VIAL IVP SCH (09:42)
[2020-06-21] MEDS: ASPIRIN 81 MG PO SCH (09:42)
[2020-06-21] MEDS: lisinopriL 20 MG TAB PEG/G-TUBE SCH (09:42)
[2020-06-21] MEDS: FUROSEMIDE 20 MG TAB PEG/G-TUBE SCH (09:42)
[2020-06-21] MEDS: CYANOCOBALAMIN 500 MCG TAB PEG/G-TUBE SCH (09:42)
[2020-06-21] MEDS: methylPREDNISolone SOD SUCCI 40 MG/ML 1 ML VIAL IV SCH ×2 (09:42→20:18)
[2020-06-21] MEDS: ATORVASTATIN 40 MG TAB PEG/G-TUBE SCH (09:43)
[2020-06-21 10:56] LABS: Myelocytes % 1 %; Neutrophils % (M) 85 %; Nucleated Red Blood Cells 2 /100 WBC (0-0); Total Cells Counted 200
[2020-06-21 11:20] LABS: Stomatocytes Present
[2020-06-21 11:23] LABS: Monocytes # (M) 1.13 k/uL (0-1.0); Myelocytes # (M) 0.16 k/uL (0); Neutrophils # (M) 13.77 k/uL (1.3-7.7); WBC 16.2 k/uL (3.8-10.6)
[2020-06-21 11:55] LABS: Glucose,Whole Blood 360 mg/dL (75-99)
[2020-06-21] MEDS ORDERED: ACETAMINOPHEN ORAL SUSP (PEDS) 3,840 MG/120 ML BOTTLE PEG/G-TUBE PRN (12:56)
[2020-06-21 13:20] LABS: Glucose,Whole Blood 350 mg/dL (75-99)
--- NOTE | 2020-06-21 13:51 | P.PN ---
Progress Note - Text Progress Note Date: 06/21/20 Patient is resting in her bed. Nursing staff she's had a bloody bowel movement. On exam vital signs are stable. Abdomen soft. Patiently scheduled for endoscopy this week.
--- NOTE | 2020-06-21 15:38 | P.PN ---
Subjective Progress Note Date: 06/21/20 Principal diagnosis: Acute on chronic hypercapnic respiratory failure related to obesity/hypoventilation syndrome and possible obstructive sleep apnea syndrome as well as urinary tract infection and possible sepsis 69-year-old white female patient with multiple chronic medical conditions, including atrial fibrillation, previous history of CVA with right-sided hemiplegia, dysphagia, status post PEG tube placement in 2017, diabetes mellitus, hypertension, hyperlipidemia, morbid obesity, difficulty with mobility, patient is a assisted resident, she has a legal guardian, and were told that she is nonverbal at her baseline. Patient was brought into the emergency department on 06/16/2020 for evaluation of altered mental status. Apparently there was a concern for possible aspiration. Patient was febrile on presentation with a temp of 100F, she was hypoxic with a pulse ox of 88% on 4 L. Lab work revealed leukocytosis with a white count of 12.8, hemoglobin was 8, troponin was negative at less than 0.012, proBNP was 2730, urinalysis was suspicious for infection. Coronavirus rapid screen was negative. Chest x-ray revealed cardiomegaly, mild pleural reaction at the right lung base, some coarsening of the lung markings. Left axillary pacemaker was noted. Was a slight blunting of the right costophrenic angle. Brain CT showed bilateral old infarcts in the right and left parietal lobes and right occipital lobe. There was cerebral atrophy. EKG showed normal sinus rhythm with sinus arrhythmia with evidence of septal infarct of undetermined age. She was quite lethargic, blood gas revealed pO2 of 296, pCO2 of 89, and pH of 7.23, this was done on 100% FiO2. Patient is placed on AVAPS, currently with FiO2 of 35%. She was started on Rocephin for possibility of urinary tract infection, she is on IV steroids, she was fluid resuscitated for possibility of urinary tract infection with sepsis. Urine drug screen was negative. Patient continued to have altered mentation, neurology evaluation was completed, please refer to their consultation. Echocardiogram showed moderate concentric LVH, EF between 65-70%, mild TR, mild pulmonary hypertension, with right-sided pressures of 42 mmHg. Carotid Doppler completed showing suboptimal evaluation due to large body habitus, patient condition and tortuous internal carotid arteries. Increased flow parameters on the bilateral internal carotid artery suggested 50-69% stenosis. Today patient was seen by us for the first time in evaluation and she is stuporous, remains on AVAPS mode of an NIPPV ventilation. She was switched over to BiPAP mode of ventilation with pressures of 14 and 5 and FiO2 of 35%, repeat blood gas was ordered, and within about 5-10 minutes she is already starting to become more responsive. She is achieving pressures of 350-400 mL, minute ventilation of 5-6 L/m, with a respiratory rate of 17, patient is starting to open eyes. The patient is seen today 06/18/2020 in follow-up on the selective care unit. She is more awake and alert today. She is nonverbal. Difficult to assess her overall mental status. She is maintaining good O2 saturations on 4 L nasal cannula at 97%. She's been afebrile. Hemodynamically stable. She did utilize BiPAP last evening. Urine culture is positive for gram-negative bacilli. Blood culture reveals no growth to date. White count 11.2. Hemoglobin 7.8. Sodium 141. Potassium 5.5. Creatinine 0.45. Currently on antibiotics in the form of meropenem. Remains on bronchodilators and IV Solu-Medrol. 0.9 normal saline at 75 ML's per hour. The patient is seen today 06/19/2020 in follow-up on the selective care unit. She is currently awake. She is answering some yes and no questions. She is more vocal today compared to yesterday. He is now maintaining O2 saturations up to 100% on 2 L/m per nasal cannula. She's afebrile. Urine culture positive for ESBL, E. coli. Blood glucose 249. She remains on meropenem. Continued on bro nchodilators and IV Solu-Medrol. The patient is seen today 06/20/2020 in follow-up on the selective care unit. She is currently resting comfortably in bed. Awake and alert in no acute distress. Answering some yes no questions. Maintaining O2 saturations in the mid 90s on room air. White count 6.8. Hemoglobin 8.6. Sodium 142. Potassium 4.6. Creatinine 0.42. Reevaluated today on 06/21/20, patient remains on the selective care unit, laying in bed, resting, on room air, does not seem to be in any form of respiratory distress. BiPAP is at bedside, but not being utilized. Patient is awake, oriented 2. O2 saturation is in the low 90s at room air. Today her O2 saturations 94%. Remains on Merrem for ESBL urinary tract infection/E. coli. Requested an infectious disease consultation, as the patient may need IV antibiotics at the assisted or the facility where she lives, and may need a midline placement. Labs today showed relatively normal electrolytes, bicarb is 34 which is expected considering her chronic hypercapnic respiratory failure. Her WBC count 16.2 hemoglobin is 8.1. Objective - Vital Signs Vital signs: Vital Signs Temp 98.8 F 06/21/20 08:00 Pulse 68 06/21/20 15:28 Resp 20 06/21/20 08:00 BP 129/58 06/21/20 08:00 Pulse Ox 94 L 06/21/20 08:00 Intake & Output 06/20/20 06/21/20 06/21/20 18:59 06:59 18:59 Output Total 1900 900 Balance -1900 -900 Weight 120.5 kg Output: Urine 1900 900 Other: Voiding Method Indwelling Catheter Indwelling Catheter Indwelling Catheter # Bowel Movements 2 - Exam GENERAL EXAM: Revealed 69-year-old female, morbidly obese, on room air, in no distress. Head: Atraumatic, normocephalic. Neck: Short obese neck. No neck masses no JVD. HEENT: PERRLA, EOMI, no icterus, no neck masses. CHEST: No chest wall deformity. Symmetrical expansion. LUNGS: Equal air entry with no crackles, wheeze, rhonchi or dullness. Diminished breath sounds at the base. CVS: Regular rate and rhythm, normal S1 and S2, no gallops, no murmurs, no rubs ABDOMEN: Soft, nontender. No hepatosplenomegaly, normal bowel sounds, no guarding or rigidity. PEG tube in place EXTREMITIES: No clubbing, no edema, no cyanosis, 2+ pulses and upper and lower extremities. MUSCULOSKELETAL: Residual right-sided weakness from previous CVA. SPINE: No scoliosis or deformity SKIN: No rashes CENTRAL NERVOUS SYSTEM: History of multiple CVAs with residual right-sided weakness, slightly more verbal today compared to previously. - Labs CBC & Chem 7: 06/21/20 07:42 06/21/20 07:42 Labs: Abnormal Lab Results - Last 24 Hours (Table) 06/20/20 06/20/2020 Range/Units 17:58 23:49 06:36 WBC (3.8-10.6) k/uL RBC (3.80-5.40) m/uL Hgb (11.4-16.0) gm/dL Hct (34.0-46.0) % MCV (80.0-100.0) fL MCH (25.0-35.0) pg MCHC (31.0-37.0) g/dL RDW (11.5-15.5) % Neutrophils # (Manual) (1.3-7.7) k/uL Monocytes # (Manual) (0-1.0) k/uL Myelocytes # (Manual) (0) k/uL Nucleated RBCs (0-0) /100 WBC Carbon Dioxide (22-30) mmol/L BUN (7-17) mg/dL Creatinine (0.52-1.04) mg/dL Glucose (74-99) mg/dL POC Glucose (mg/dL) 342 H 338 H 270 H (75-99) mg/dL 06/21/20 06/21/20 06/21/20 Range/Units 07:42 07:42 11:54 WBC 16.2 H (3.8-10.6) k/uL RBC 3.66 L (3.80-5.40) m/uL Hgb 8.1 L (11.4-16.0) gm/dL Hct 28.8 L (34.0-46.0) % MCV 78.8 L (80.0-100.0) fL MCH 22.1 L (25.0-35.0) pg MCHC 28.1 L (31.0-37.0) g/dL RDW 18.5 H (11.5-15.5) % Neutrophils # (Manual) 13.77 H (1.3-7.7) k/uL Monocytes # (Manual) 1.13 H (0-1.0) k/uL Myelocytes # (Manual) 0.16 H (0) k/uL Nucleated RBCs 2 H (0-0) /100 WBC Carbon Dioxide 34 H (22-30) mmol/L BUN 35 H (7-17) mg/dL Creatinine 0.42 L (0.52-1.04) mg/dL Glucose 232 H (74-99) mg/dL POC Glucose (mg/dL) 360 H (75-99) mg/dL 06/21/20 Range/Units 13:13 WBC (3.8-10.6) k/uL RBC (3.80-5.40) m/uL Hgb (11.4-16.0) gm/dL Hct (34.0-46.0) % MCV (80.0-100.0) fL MCH (25.0-35.0) pg MCHC (31.0-37.0) g/dL RDW (11.5-15.5) % Neutrophils # (Manual) (1.3-7.7) k/uL Monocytes # (Manual) (0-1.0) k/uL Myelocytes # (Manual) (0) k/uL Nucleated RBCs (0-0) /100 WBC Carbon Dioxide (22-30) mmol/L BUN (7-17) mg/dL Creatinine (0.52-1.04) mg/dL Glucose (74-99) mg/dL POC Glucose (mg/dL) 350 H (75-99) mg/dL Microbiology - Last 24 Hours (Table) 06/16/20 23:35 Blood Culture - Preliminary Blood No Growth after 96 hours Assessment and Plan Assessment: #1. Acute urinary tract infection secondary to ESBL E. coli, and possible sepsis. #2. Chronic hypercapnic respiratory failure related to obesity hypoventilation syndrome, possibility of obstructive sleep apnea #3. History of multiple old strokes, and bilateral parietal and right occipital, with history of right-sided weakness, dysphagia, and aphasia #4. History of dysphagia, status post PEG tube placement #5. Patient is bedbound, and is a resident of a local [facility]. She has a legal guardian #6. Chronic anemia #7. History of atrial fibrillation, currently in sinus rhythm, on chronic anticoagulation with Eliquis, history of permanent pacemaker implantation #8. History of hypertension #9. Hyperlipidemia #10. 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 History of lumbar fusion #12. Morbid obesity #13. Previous history of ESBL urinary tract infection Recommendation: Continue Merrem. Continue BiPAP as needed. Infectious disease consultation, patient may need to be on IV antibiotics with a midline in place, and this can be given on outpatient basis. Consider discharge planning to [facility] once cleared by infectious disease. We'll continue to follow while inpatient. Time with Patient: Less than 30
[2020-06-21 17:22] LABS: Glucose,Whole Blood 299 mg/dL (75-99)
[2020-06-21 17:39] LABS: Appearance,Urine Cloudy (Clear); Bacteria,Urine Many /hpf; Bilirubin,Urine Negative (Negative); Blood,Urine Large (Negative); Budding Yeast,Urine Many /hpf; Color,Urine Yellow; Glucose,Urine (UA) 2+ (Negative); Ketones,Urine Trace (Negative); Leukocyte Esterase,Urine Large (Negative); Mucus,Urine Many /hpf; Nitrite,Urine Negative (Negative); Protein,Urine 1+ (Negative); RBC,Urine 41 /hpf (0-5); Specific Gravity,Urine 1.024 (1.001-1.035); Squamous Epithelial Cell,Urine 9 /hpf (0-4); WBC,Urine 94 /hpf (0-5)
--- NOTE | 2020-06-21 19:30 | P.PN ---
Subjective This is a pleasant 69 years old female with past medical history of stroke since 2017 with dysphagia status post PEG tube. Other medical problems including atrial fibrillation, DVT, GERD, hyperlipidemia, hypertension. Presents because of altered mental status and low-grade fever. Patient could not provide information and were obtained from the chart. As per documentation was presented because of altered mental status with Schiller respiration and there was concerns for aspiration. He came from [facility]. Patient does not follow, and currently. He had a temperature of 100.0 upon admission. He was also hypoxic 88% on 4 L oxygen dependent and a cannula, came up to 99% on 10 L Labs showing mild leukocytosis of 12.8, hemoglobin is 8.0, platelet is normal. INR is 1.1, ABG showing low pH of 7.2 and high pCO2 of 89 and bicarb of 38, oxygen is 296. Potassium slightly elevated at 5.6, creatinine is normal 0.65. Liver enzymes not elevated. Troponin is negative less than 0.012. C-reactive protein is slightly elevated at 19, lactate dehydrogenase is normal at 453. ProBNP is 2730. Urinalysis is suspicious for infection. Urinary tract screen is negative Coronal virus not detected EKG showed normal sinus rhythm at [address]-T changes CT of the brain: Bilateral old infarcts in the right and left parietal lobes and the right occipital lobe. Right parietal infarct not change compared to old exam. The other infarcts appear new. Cerebral atrophy Patient already has been evaluated by neurologist recommended cardiology evaluation for possible cardioembolic source In the emergency room patient was started on ceftriaxone, Solu-Medrol 60 mg and he received 2 L of normal saline and then continued at 100 mL per hour. Also he was started on BiPAP there was concern for anemia with a low hemoglobin at 8.0. 06/18/2020 Patient still nonverbal she opens eyes to verbal and tactile stimuli but she do es not follow command. She still needed and BiPAP this morning. She still have altered mental status EEG showing moderate to severe encephalopathy but no epileptiform discharge. Carotid duplex showing bilateral carotid artery stenosis about 50-69%. Echocardiogram showing ejection fraction of 65-70% with LV wall hypokinesia. Urine culture is growing gram-negative bacilli and currently she is on meropenem for possible ESBL Eliquis is still on hold because of possible GI bleed and significant anemia. Anemia workup still undergoing, occult blood in stool is pending. Cardiology and neurology on the case for her altered mental status and multiple strokes to rule out cardiac source of emboli. Covid test is negative I discussed the case with her daughter miss PURVIS at [phone]. 06/19/2020 Patient is awake and alert today, she opens eyes spontaneously, she couldn't tell the name, surgical felt that she isn't [facility] and answer other questions appropriately, she follows commands. Breathing is easier today. Generally she feels good. She denies chest pain or abdominal pain she has 1+ leg edema. Blood pressure is 170/70, rest of Vitas looks stable. Sugar is slightly elevated. She was on Levemir 44 units and Januvia 100 mg of metformin 1000 mg twice a day, also she is currently on steroids. We are going to resume her insulin and monitor closely. Urine is going ESBL E. coli which is sensitive to meropenem. Eliquis is still on hold for possible GI bleed, surgery team were consulted for low hemoglobin. Cardiology team on the case. Check labs today. 06/20/2020 Patient clinically looks same as yesterday, she is awake she can say she is in [facility] however she still not fully oriented to the surrounding. She follows some commands but not every single one. She does not have respiratory distress and her hemodynamics are stable. Her urine culture is going ESBL E. coli and she is on appropriate antibiotics with me upon them. Surgeon input is appreciated and they recommended EGD/colonoscopy to rule out GI bleed. Because of her anemia her Eliquis is on hold for now. Hemoglobin is slightly trending up today to 8.6. WBC is back to normal patient can be transferred from the select unit to the general medical floor 06/21/2020 This is a pleasant 69 y old female who was originally admitted for altered mental status secondary to hypercapnic respiratory failure thought secondary to possible obstructive sleep apnea with some elements of obesity hypoventilation syndrome, exacerbated by her ESBL E. coli UTI, patient improved with BiPAP therapy and now she is fully awake, she knows in the hospital and almost she is at baseline mental status. She is on meropenem. Infectious disease been consulted. As part of altered Percocet workup neurologist has been consulted and imaging showed multiple strokes with recommendation to rule out cardiac embolic source sealer aircraft has been consulted. Patient is already on liquids which is placed on hold for consult for GI bleed. Patient may need endoscopy by surgery team uncertain time this week. Covid test is negative. CT of the neck is negative. Currently patient also on Solu-Medrol 40 mg and gentle hydration, sugar is on the high side and Levemir increased to 50 units Also today she has a job and red cell count to 16 K, with large soft to loose bowel movement with blood suspected as well. C. diff and occult blood in stool is requested Overall the prognosis is guarded Objective - Vital Signs Vital signs: Vital Signs Temp 98.3 F 06/21/20 17:14 Pulse 68 06/21/20 15:38 Resp 22 06/21/20 14:00 BP 142/65 06/21/20 14:00 Pulse Ox 96 06/21/20 14:00 Intake & Output 06/20/20 06/21/20 06/21/20 18:59 06:59 18:59 Output Total 1900 900 600 Balance -1900 -900 -600 Weight 120.5 kg Output: Urine 1900 900 600 Other: Voiding Method Indwelling Catheter Indwelling Catheter Indwelling Catheter # Bowel Movements 2 1 - Exam -GENERAL: The patient is more awake, follows commands to some extent HEENT: Pupils are round and equally reacting to light. EOMI. No scleral icterus. No conjunctival pallor. Normocephalic, atraumatic. No pharyngeal erythema. No thyromegaly. CARDIOVASCULAR: S1 and S2 present. No murmurs, rubs, or gallops. -PULMONARY: Chest is clear to auscultation, Mr. air entry -ABDOMEN: Soft, nontender, nondistended, normoactive bowel sounds. No palpable organomegaly. PEG tube is in place MUSCULOSKELETAL: No joint swelling or deformity. EXTREMITIES: No cyanosis, clubbing, or pedal edema. NEUROLOGICAL: Gross neurological examination did not reveal any focal deficits. SKIN: No rashes. No petechiae - Labs CBC & Chem 7: 06/21/20 07:42 06/21/20 07:42 Labs: Abnormal Lab Results - Last 24 Hours (Table) 06/20/20 06/20/20 06/21/20 Range/Units 17:58 23:49 06:36 WBC (3.8-10.6) k/uL RBC (3.80-5.40) m/uL Hgb (11.4-16.0) gm/dL Hct (34.0-46.0) % MCV (80.0-100.0) fL MCH (25.0-35.0) pg MCHC (31.0-37.0) g/dL RDW (11.5-15.5) % Neutrophils # (Manual) (1.3-7.7) k/uL Monocytes # (Manual) (0-1.0) k/uL Myelocytes # (Manual) (0) k/uL Nucleated RBCs (0-0) /100 WBC Carbon Dioxide (22-30) mmol/L BUN (7-17) mg/dL Creatinine (0.52-1.04) mg/dL Glucose (74-99) mg/dL POC Glucose (mg/dL) 342 H 338 H 270 H (75-99) mg/dL 06/21/20 06/21/20 06/21/20 Range/Units 07:42 07:42 11:54 WBC 16.2 H (3.8-10.6) k/uL RBC 3.66 L (3.80-5.40) m/uL Hgb 8.1 L (11.4-16.0) gm/dL Hct 28.8 L (34.0-46.0) % MCV 78.8 L (80.0-100.0) fL MCH 22.1 L (25.0-35.0) pg MCHC 28.1 L (31.0-37.0) g/dL RDW 18.5 H (11.5-15.5) % Neutrophils # (Manual) 13.77 H (1.3-7.7) k/uL Monocytes # (Manual) 1.13 H (0-1.0) k/uL Myelocytes # (Manual) 0.16 H (0) k/uL Nucleated RBCs 2 H (0-0) /100 WBC Carbon Dioxide 34 H (22-30) mmol/L BUN 35 H (7-17) mg/dL Creatinine 0.42 L (0.52-1.04) mg/dL Glucose 232 H (74-99) mg/dL POC Glucose (mg/dL) 360 H (75-99) mg/dL 06/21/20 06/21/20 Range/Units 13:13 17:21 WBC (3.8-10.6) k/uL RBC (3.80-5.40) m/uL Hgb (11.4-16.0) gm/dL Hct (34.0-46.0) % MCV (80.0-100.0) fL MCH (25.0-35.0) pg MCHC (31.0-37.0) g/dL RDW (11.5-15.5) % Neutrophils # (Manual) (1.3-7.7) k/uL Monocytes # (Manual) (0-1.0) k/uL Myelocytes # (Manual) (0) k/uL Nucleated RBCs (0-0) /100 WBC Carbon Dioxide (22-30) mmol/L BUN (7-17) mg/dL Creatinine (0.52-1.04) mg/dL Glucose (74-99) mg/dL POC Glucose (mg/dL) 350 H 299 H (75-99) mg/dL Microbiology - Last 24 Hours (Table) 06/16/20 23:35 Blood Culture - Preliminary Blood No Growth after 96 hours Assessment and Plan Assessment: Acute hypoxic, hypercapnic respiratory failure, improved Possible obstructive sleep apnea with some elements of COPD exacerbation and obesity hypoventilation syndrome Metabolic encephalopathy secondary to above, improved Acute urinary tract infection, secondary to ESBL E. coli Hypochromic microcytic Anemia, rule out GI bleed Multiple strokes. Bilateral cerebral infarcts, they look old however they are new compared to old exam especially in the right occipital lobe and the left parietal lobe. Rule out cardiac source history of stroke since 2017 with dysphagia status post PEG tube Diarrhea, rule out C. diff Hypertension Hyperlipidemia Diabetes mellitus History of paroxysmal atrial fibrillation, was on Eliquis History of stroke Plan: This is a pleasant 69 years old female who presents with multiple problems including COPD exacerbation and hypercapnia. AMS. UTI. Multiple several strokes.Continue with aspirin and Lipitor. Continue with meropenem, Solu-Medrol, gentle hydration, vitamin B12 Check for C. diff and occult blood in the stool Keep Eliquis on hold until cleared by surgery team Several consult is on the case including pulmonary, infectious disease, nephrology, neurology, cardiology Possible EGD/colonoscopy when stable Labs and medication were reviewed.. Continue same treatment. Continue with symptomatic treatment. Resume home medication. Monitor lytes and vitals. DVT and GI prophylaxis. Further recommendations depends on the clinical course of the patient DVT prophylaxis: Eliquis IS HELD FOR ANEMIA GI Prophylaxis: ppi Prognosis is guarded Dr. Chaudhary resume the care of the patient tomorrow
[2020-06-21] MEDS ORDERED: VANCOMYCIN 125 MG CAPSULE PO SCH (22:00)
[2020-06-21] MEDS: VANCOMYCIN ORAL SOLUTION 250 MG/5 ML BOTTLE PEG/G-TUBE SCH (22:40)
[2020-06-22 00:08] LABS: Glucose,Whole Blood 275 mg/dL (75-99)
[2020-06-22] MEDS: INSULIN ASPART (NovoLOG) 100 UNIT/ML VIAL SQ SCH ×4 (00:13→17:58)
[2020-06-22] MEDS: MEROPENEM 1 GM in SODIUM CHLORIDE 0.9% 100 ML IVPB SCH ×3 (01:14→17:42)
[2020-06-22] MEDS: SODIUM CHLORIDE 0.9% 1,000 ML IV SCH ×2 (05:00→08:14)
[2020-06-22 06:03] LABS: Glucose,Whole Blood 230 mg/dL (75-99)
--- NOTE | 2020-06-22 06:42 | CONS ---
CONSULTATION DATE OF SERVICE: 06/21/2020 REASON FOR CONSULTATION: ESBL E coli tract infection. HISTORY OF PRESENT ILLNESS: The patient is a 69-year-old female, a [facility] resident, in this patient who has been brought to the hospital about 6 days ago on 06/16/2020 for evaluation of mental status changes. The pain started the day she was brought to the hospital. On presentation to the hospital, the patient did have a fever of 100 degrees Fahrenheit. The patient has been afebrile since then. On presentation to the hospital did have a white count of 12.2, subsequently normalized. However, white count 16.2 today. The patient did have normal kidney function. She was also noted to have a positive UA, however the patient did have a chronic indwelling Epstein catheter that has not been changed on this admission. The patient did have urine cultures obtained from the same images grew ESBL E coli. The patient was started on meropenem. Infectious Disease was consulted for further management. Most information has been obtained from review of the chart and talking to nursing staff. The patient is unable to provide a reliable history. No evidence of any respiratory distress. She was noted to have some diarrhea and stool for C diff subsequent came back positive. REVIEW OF SYSTEMS: Positive points have been mentioned in HPI. Rest of the systems are negative. PAST MEDICAL HISTORY: Atrial fibrillation, CVA, TIA, diabetes mellitus, DVT, , hyperlipidemia, hypertension, pneumonia, previous history of ESBL UTI. PAST SURGICAL HISTORY: Appendectomy, back surgery, , cholecystectomy, hernia repair, pacemaker, tubal ligation. SOCIAL HISTORY: No history of smoking. Current [facility] resident. No drinking or drug use. FAMILY HISTORY: Mother with history of diabetes, cancer. ALLERGIES: No known drug allergies. MEDICATIONS: The patient is currently on Lasix, NovoLog, Levemir, Zestril, meropenem 1 g q.8h. She is on Solu-Medrol, Lopressor, Nitrostat, Protonix and IV fluid. PHYSICAL EXAMINATION: VITAL SIGNS: Blood pressure 117/72 with a pulse of 74, temperature 98.1. She is 97% on room air. GENERAL DESCRIPTION: The patient is an elderly female lying in bed in no distress. No tachypnea or accessory muscles of respiration use. HEENT: Examination show nor pallor. No scleral icterus. Oral mucous membranes are dry. NECK: Trachea central. No thyromegaly. LUNGS: Unlabored breathing, decreased breath sounds in the base, with no wheeze. HEART: S1, S2. Regular rate and rhythm. ABDOMEN: Soft, no tenderness. EXTREMITIES: Some diffuse swelling. No redness. No drainage. NEUROLOGIC: The patient is arousable. Orientation not determined because of . LABS: Hemoglobin 8.1, white count 16.2, BUN of 30, creatinine 0.42. White count has been normal. DIAGNOSTIC IMPRESSION: 1. Patient admitted to the hospital with mental status changes likely multifactorial in this patient with possible component of urinary tract infection. Urine has been finalized with an ESBL E coli. However, this has been obtained from the catheter the patient came with and could be representing a possible colonization though the patient did have elevated white count and low-grade fever and possibility of a symptomatic urinary tract infection. 2. Patient with diarrhea. Stool for C diff positive. PLAN: 1. Change her Epstein catheter and obtain urine culture from new Epstein. 2. The patient to continue meropenem 1 gram q.8 hours. 3. Will add vancomycin 125 mg p.o. q.6 hours for C difficile colitis. 4. We will follow on her clinical condition and further adjust medication if needed. Thank you for this consultation. Will follow this patient along with you. MMODL / IJN: [id number] /
[2020-06-22 07:59] LABS: African American GFR (CKD) >90 (>60 ml/min/1.73 sqM); Anion Gap 2 mmol/L; Blood Urea Nitrogen 31 mg/dL (7-17); Calcium 8.8 mg/dL (8.4-10.2); Carbon Dioxide 34 mmol/L (22-30); Chloride 104 mmol/L (98-107); Glucose 220 mg/dL (74-99); Non-African American GFR(CKD) >90 (>60 ml/min/1.73 sqM); Potassium 4.7 mmol/L (3.5-5.1); Sodium 140 mmol/L (137-145)
[2020-06-22] MEDS: PANTOPRAZOLE 40 MG/10 ML VIAL IVP SCH (08:12)
[2020-06-22] MEDS: ASPIRIN 81 MG PO SCH ×2 (08:12→08:59)
[2020-06-22] MEDS: FUROSEMIDE 20 MG TAB PEG/G-TUBE SCH ×2 (08:12→08:59)
[2020-06-22] MEDS: METOPROLOL TARTRATE 50 MG TAB PEG/G-TUBE SCH ×3 (08:12→22:13)
[2020-06-22] MEDS: methylPREDNISolone SOD SUCCI 40 MG/ML 1 ML VIAL IV SCH ×3 (08:12→22:14)
[2020-06-22] MEDS: CYANOCOBALAMIN 500 MCG TAB PEG/G-TUBE SCH ×2 (08:12→08:36)
[2020-06-22] MEDS: lisinopriL 20 MG TAB PEG/G-TUBE SCH ×2 (08:12→08:59)
[2020-06-22] MEDS: INSULIN DETEMIR (LEVEMIR) 100 UNIT/ML SYR SQ SCH (08:12)
[2020-06-22] MEDS: VANCOMYCIN ORAL SOLUTION 250 MG/5 ML BOTTLE PEG/G-TUBE SCH ×5 (08:16→22:14)
[2020-06-22 08:21] LABS: Anisocytosis Slight; Basophils % (A) 0 %; Eosinophils # (A) 0.1 k/uL (0-0.7); Eosinophils % (A) 0 %; HCT 28.9 % (34.0-46.0); HGB 8.5 gm/dL (11.4-16.0); Hypochromasia Marked; Lymphocytes # (A) 1.3 k/uL (1.0-4.8); Lymphocytes % (A) 10 %; MCH 23.2 pg (25.0-35.0); MCHC 29.4 g/dL (31.0-37.0); Mean Platelet Volume 9.4; Microcytosis Slight; Monocytes # (A) 0.7 k/uL (0-1.0); Monocytes % (A) 5 %; Neutrophils # (A) 11.1 k/uL (1.3-7.7); Neutrophils % (A) 83 %; Platelet Count 184 k/uL (150-450); Poikilocytosis Marked; RBC 3.66 m/uL (3.80-5.40); RDW 18.6 % (11.5-15.5); WBC 13.3 k/uL (3.8-10.6)
[2020-06-22] MEDS: IPRATROPIUM-ALBUTEROL 3 ML NEB INHALATION SCH ×4 (10:54→20:18)
[2020-06-22 11:37] LABS: Glucose,Whole Blood 219 mg/dL (75-99)
--- NOTE | 2020-06-22 12:38 | P.PN ---
Subjective Progress Note Date: 06/22/20 CHIEF COMPLAINT: Possible GI bleed HISTORY OF PRESENT ILLNESS: Patient is being followed for possible GI bleed. She's had no further bloody bowel movements yesterday or this morning. Her last bowel movement was 2 days ago. She is being treated for C. diff and possible UTI. Patient denies any abdominal pain. Denies any nausea or vomiting. She is afebrile. WBC is 13.3 hemoglobin 8.5. She is tolerating her tube feeds. PHYSICAL EXAM: VITAL SIGNS: Reviewed. GENERAL: Well-developed in no acute distress. HEENT: No sclera icterus. Extraocular movements grossly intact. Moist buccal mucosa. Head is atraumatic, normocephalic. ABDOMEN: Soft. Nondistended. Nontender. PEG tube site clean dry and intact NEUROLOGIC: Alert and oriented. Cranial nerves II through XII grossly intact. ASSESSMENT: 1. Anemia with possible GI bleed 2. C. diff colitis PLAN: -Continue to monitor hemoglobin -Continue tube feeding -Continue supportive care -Possible endoscopy during this week. We'll monitor patient closely Physician Theater Technician note has been reviewed by physician. Signing provider agrees with the documented findings, assessment, and plan of care. Objective - Vital Signs Vital signs: Vital Signs Temp 97.6 F 06/22/20 06:00 Pulse 65 06/22/20 06:00 Resp 16 06/22/20 08:00 BP 130/65 06/22/20 06:00 Pulse Ox 92 L 06/22/20 06:00 Intake & Output 06/21/20 06/22/20 06/22/20 18:59 06:59 18:59 Intake Total 800 Output Total 600 1000 Balance -600 800 -1000 Weight 120 kg Intake: Oral 400 Tube Feeding 400 Output: Urine 600 1000 Other: Voiding Method Indwelling Catheter Indwelling Catheter Indwelling Catheter # Voids 0 425 # Bowel Movements 1 - Labs CBC & Chem 7: 06/22/20 07:09 06/22/20 07:09 Labs: Abnormal Lab Results - Last 24 Hours (Table) 06/21/20 06/21/20 06/21/20 Range/Units 13:10 13:10 13:13 WBC (3.8-10.6) k/uL RBC (3.80-5.40) m/uL Hgb (11.4-16.0) gm/dL Hct (34.0-46.0) % MCV (80.0-100.0) fL MCH (25.0-35.0) pg MCHC (31.0-37.0) g/dL RDW (11.5-15.5) % Neutrophils # (1.3-7.7) k/uL Carbon Dioxide (22-30) mmol/L BUN (7-17) mg/dL Creatinine (0.52-1.04) mg/dL Glucose (74-99) mg/dL POC Glucose (mg/dL) 350 H (75-99) mg/dL Urine Appearance (Clear) Urine Protein (Negative) Urine Glucose (UA) (Negative) Urine Ketones (Negative) Urine Blood (Negative) Ur Leukocyte Esterase (Negative) Urine RBC (0-5) /hpf Urine WBC (0-5) /hpf Urine WBC Clumps (None) /hpf Ur Squamous Epith Cells (0-4) /hpf Urine Bacteria (None) /hpf Urine Mucus (None) /hpf Urine Yeast (Budding) (None) /hpf Stool Occult Blood Positive H (Negative) C. difficile (EIA) Intrp Positive A (Negative) 06/21/20 06/21/20 06/22/20 Range/Units 17:13 17:21 00:06 WBC (3.8-10.6) k/uL RBC (3.80-5.40) m/uL Hgb (11.4-16.0) gm/dL Hct (34.0-46.0) % MCV (80.0-100.0) fL MCH (25.0-35.0) pg MCHC (31.0-37.0) g/dL RDW (11.5-15.5) % Neutrophils # (1.3-7.7) k/uL Carbon Dioxide (22-30) mmol/L BUN (7-17) mg/dL Creatinine (0.52-1.04) mg/dL Glucose (74-99) mg/dL POC Glucose (mg/dL) 299 H 275 H (75-99) mg/dL Urine Appearance Cloudy H (Clear) Urine Protein 1+ H (Negative) Urine Glucose (UA) 2+ H (Negative) Urine Ketones Trace H (Negative) Urine Blood Large H (Negative) Ur Leukocyte Esterase Large H (Negative) Urine RBC 41 H (0-5) /hpf Urine WBC 94 H (0-5) /hpf Urine WBC Clumps Many H (None) /hpf Ur Squamous Epith Cells 9 H (0-4) /hpf Urine Bacteria Many H (None) /hpf Urine Mucus Many H (None) /hpf Urine Yeast (Budding) Many H (None) /hpf Stool Occult Blood (Negative) C. difficile (EIA) Intrp (Negative) 06/22/20 06/22/20 06/22/20 Range/Units 06:00 07:09 07:09 WBC 13.3 H (3.8-10.6) k/uL RBC 3.66 L (3.80-5.40) m/uL Hgb 8.5 L (11.4-16.0) gm/dL Hct 28.9 L (34.0-46.0) % MCV 79.0 L (80.0-100.0) fL MCH 23.2 L (25.0-35.0) pg MCHC 29.4 L (31.0-37.0) g/dL RDW 18.6 H (11.5-15.5) % Neutrophils # 11.1 H (1.3-7.7) k/uL Carbon Dioxide 34 H (22-30) mmol/L BUN 31 H (7-17) mg/dL Creatinine 0.37 L (0.52-1.04) mg/dL Glucose 220 H (74-99) mg/dL POC Glucose (mg/dL) 230 H (75-99) mg/dL Urine Appearance (Clear) Urine Protein (Negative) Urine Glucose (UA) (Negative) Urine Ketones (Negative) Urine Blood (Negative) Ur Leukocyte Esterase (Negative) Urine RBC (0-5) /hpf Urine WBC (0-5) /hpf Urine WBC Clumps (None) /hpf Ur Squamous Epith Cells (0-4) /hpf Urine Bacteria (None) /hpf Urine Mucus (None) /hpf Urine Yeast (Budding) (None) /hpf Stool Occult Blood (Negative) C. difficile (EIA) Intrp (Negative) 06/22/20 Range/Units 11:35 WBC (3.8-10.6) k/uL RBC (3.80-5.40) m/uL Hgb (11.4-16.0) gm/dL Hct (34.0-46.0) % MCV (80.0-100.0) fL MCH (25.0-35.0) pg MCHC (31.0-37.0) g/dL RDW (11.5-15.5) % Neutrophils # (1.3-7.7) k/uL Carbon Dioxide (22-30) mmol/L BUN (7-17) mg/dL Creatinine (0.52-1.04) mg/dL Glucose (74-99) mg/dL POC Glucose (mg/dL) 219 H (75-99) mg/dL Urine Appearance (Clear) Urine Protein (Negative) Urine Glucose (UA) (Negative) Urine Ketones (Negative) Urine Blood (Negative) Ur Leukocyte Esterase (Negative) Urine RBC (0-5) /hpf Urine WBC (0-5) /hpf Urine WBC Clumps (None) /hpf Ur Squamous Epith Cells (0-4) /hpf Urine Bacteria (None) /hpf Urine Mucus (None) /hpf Urine Yeast (Budding) (None) /hpf Stool Occult Blood (Negative) C. difficile (EIA) Intrp (Negative) Microbiology - Last 24 Hours (Table) 06/16/20 23:35 Blood Culture - Preliminary Blood No Growth after 120 hours 06/21/20 17:13 Urine Culture - Preliminary Urine,Voided
[2020-06-22] MEDS: ATORVASTATIN 40 MG TAB PEG/G-TUBE SCH (13:02)
[2020-06-22 14:00] VITALS: BMI 41.4
--- NOTE | 2020-06-22 17:16 | P.PN ---
Subjective Progress Note Date: 06/22/20 Principal diagnosis: Acute on chronic hypercapnic respiratory failure 69-year-old white female patient with multiple chronic medical conditions, including atrial fibrillation, previous history of CVA with right-sided hemiplegia, dysphagia, status post PEG tube placement in 2017, diabetes mellitus, hypertension, hyperlipidemia, morbid obesity, difficulty with mobility, patient is a intermediate resident, she has a legal guardian, and were told that she is nonverbal at her baseline. Patient was brought into the emergency department on 06/16/2020 for evaluation of altered mental status. Apparently there was a concern for possible aspiration. Patient was febrile on presentation with a temp of 100F, she was hypoxic with a pulse ox of 88% on 4 L. Lab work revealed leukocytosis with a white count of 12.8, hemoglobin was 8, troponin was negative at less than 0.012, proBNP was 2730, urinalysis was suspicious for infection. Coronavirus rapid screen was negative. Chest x-ray revealed cardiomegaly, mild pleural reaction at the right lung base, some coarsening of the lung markings. Left axillary pacemaker was noted. Was a slight blunting of the right costophrenic angle. Brain CT showed bilateral old infarcts in the right and left parietal lobes and right occipital lobe. There was cerebral atrophy. EKG showed normal sinus rhythm with sinus arrhythmia with evidence of septal infarct of undetermined age. She was quite lethargic, blood gas revealed pO2 of 296, pCO2 of 89, and pH of 7.23, this was done on 100% FiO2. Patient is placed on AVAPS, currently with FiO2 of 35%. She was started on Rocephin for possibility of urinary tract infection, she is on IV steroids, she was fluid resuscitated for possibility of urinary tract infection with sepsis. Urine drug screen was negative. Patient continued to have altered mentation, neurology evaluation was completed, please refer to their consultation. Echocardiogram showed moderate concentric LVH, EF between 65-70%, mild TR, mild pulmonary hypertension, with right-sided pressures of 42 mmHg. Carotid Doppler completed showing suboptimal evaluation due to large body habitus, patient condition and tortuous internal carotid arteries. Increased flow parameters on the bilateral internal carotid artery suggested 50-69% stenosis. Today patient was seen by us for the first time in evaluation and she is stuporous, remains on AVAPS mode of an NIPPV ventilation. She was switched over to BiPAP mode of ve ntilation with pressures of 14 and 5 and FiO2 of 35%, repeat blood gas was ordered, and within about 5-10 minutes she is already starting to become more responsive. She is achieving pressures of 350-400 mL, minute ventilation of 5-6 L/m, with a respiratory rate of 17, patient is starting to open eyes. The patient is seen today 06/18/2020 in follow-up on the selective care unit. She is more awake and alert today. She is nonverbal. Difficult to assess her overall mental status. She is maintaining good O2 saturations on 4 L nasal cannula at 97%. She's been afebrile. Hemodynamically stable. She did utilize BiPAP last evening. Urine culture is positive for gram-negative bacilli. Blood culture reveals no growth to date. White count 11.2. Hemoglobin 7.8. Sodium 141. Potassium 5.5. Creatinine 0.45. Currently on antibiotics in the form of meropenem. Remains on bronchodilators and IV Solu-Medrol. 0.9 normal saline at 75 ML's per hour. The patient is seen today 06/19/2020 in follow-up on the selective care unit. She is currently awake. She is answering some yes and no questions. She is more vocal today compared to yesterday. He is now maintaining O2 saturations up to 1 00% on 2 L/m per nasal cannula. She's afebrile. Urine culture positive for ESBL, E. coli. Blood glucose 249. She remains on meropenem. Continued on bronchodilators and IV Solu-Medrol. The patient is seen today 06/20/2020 in follow-up on the selective care unit. She is currently resting comfortably in bed. Awake and alert in no acute distress. Answering some yes no questions. Maintaining O2 saturations in the mid 90s on room air. White count 6.8. Hemoglobin 8.6. Sodium 142. Potassium 4.6. Creatinine 0.42. Reevaluated today on 06/21/20, patient remains on the selective care unit, laying in bed, resting, on room air, does not seem to be in any form of respiratory distress. BiPAP is at bedside, but not being utilized. Patient is awake, oriented 2. O2 saturation is in the low 90s at room air. Today her O2 saturations 94%. Remains on Merrem for ESBL urinary tract infection/E. coli. Requested an infectious disease consultation, as the patient may need IV antibiotics at the intermediate or the facility where she lives, and may need a midline placement. Labs today showed relatively normal electrolytes, bicarb is 34 which is expected considering her chronic hypercapnic respiratory failure. Her WBC count 16.2 hemoglobin is 8.1. On 06/22/2020 patient seen in follow-up on general medical surgical floor, she is resting comfortably in bed, she is sleepy, but arousable to verbal stimuli, she is answering some simple questions with some simple verbal responses, she g oes back to sleep when unstimulated, appears to be in no acute distress, room air pulse ox is 92%, no acute events overnight, she remains on antibiotics in the form of meropenem for ESBL urinary tract infection, she is on oral vancomycin for C. diff colitis, medicines have been stable in the last 24 hours, she has been afebrile, and looks like she only had 3 bowel movements in the last 24 hours. In the dynamically stable, she is tolerating tube feedings. Objective - Vital Signs Vital signs: Vital Signs Temp 97.6 F 06/22/20 14:32 Pulse 68 06/22/20 14:32 Resp 16 06/22/20 14:32 BP 126/77 06/22/20 14:32 Pulse Ox 100 06/22/20 14:32 Intake & Output 06/21/20 06/22/20 06/22/20 18:59 06:59 18:59 Intake Total 800 400 Output Total 600 1000 Balance -600 800 -600 Weight 120 kg 120 kg Intake: Oral 400 Tube Feeding 400 400 Output: Urine 600 1000 Other: Voiding Method Indwelling Catheter Indwelling Catheter Indwelling Catheter # Voids 0 425 # Bowel Movements 1 - Exam GENERAL EXAM: Unresponsive, 69-year-old morbidly obese white female, on room air with a pulse ox of 92% HEAD: Normocephalic/atraumatic. EYES: Normal reaction of pupils, equal size. Conjunctiva pink, sclera white. NOSE: Clear with pink turbinates. THROAT: No erythema or exudates. NECK: No masses, no JVD, no thyroid enlargement, no adenopathy. CHEST: No chest wall deformity. Symmetrical expansion. LUNGS: Equal air entry with no crackles, wheeze, rhonchi or dullness. CVS: Regular rate and rhythm, normal S1 and S2, no gallops, no murmurs, no rubs ABDOMEN: Soft, nontender. No hepatosplenomegaly, normal bowel sounds, no guarding or rigidity. PEG tube in place EXTREMITIES: No clubbing, no edema, no cyanosis, 2+ pulses and upper and lower extremities. MUSCULOSKELETAL: Muscle strength and tone normal. SPINE: No scoliosis or deformity SKIN: No rashes CENTRAL NERVOUS SYSTEM: Drowsy but arousable to verbal stimuli No focal deficits, tone is normal in all 4 extremities. - Labs CBC & Chem 7: 06/22/20 07:09 06/22/20 07:09 Labs: Abnormal Lab Results - Last 24 Hours (Table) 06/18/20 06/21/20 06/21/20 Range/Units 09:31 13:10 13:10 WBC (3.8-10.6) k/uL RBC (3.80-5.40) m/uL Hgb (11.4-16.0) gm/dL Hct (34.0-46.0) % MCV (80.0-100.0) fL MCH (25.0-35.0) pg MCHC (31.0-37.0) g/dL RDW (11.5-15.5) % Neutrophils # (1.3-7.7) k/uL Carbon Dioxide (22-30) mmol/L BUN (7-17) mg/dL Creatinine (0.52-1.04) mg/dL Glucose (74-99) mg/dL POC Glucose (mg/dL) (75-99) mg/dL RBC Folate 795 H (280 - 791) ng/mL Urine Appearance (Clear) Urine Protein (Negative) Urine Glucose (UA) (Negative) Urine Ketones (Negative) Urine Blood (Negative) Ur Leukocyte Esterase (Negative) Urine RBC (0-5) /hpf Urine WBC (0-5) /hpf Urine WBC Clumps (None) /hpf Ur Squamous Epith Cells (0-4) /hpf Urine Bacteria (None) /hpf Urine Mucus (None) /hpf Urine Yeast (Budding) (None) /hpf Stool Occult Blood Positive H (Negative) C. difficile (EIA) Intrp Positive A (Negative) 06/21/20 06/21/20 06/22/20 Range/Units 17:13 17:21 00:06 WBC (3.8-10.6) k/uL RBC (3.80-5.40) m/uL Hgb (11.4-16.0) gm/dL Hct (34.0-46.0) % MCV (80.0-100.0) fL MCH (25.0-35.0) pg MCHC (31.0-37.0) g/dL RDW (11.5-15.5) % Neutrophils # (1.3-7.7) k/uL Carbon Dioxide (22-30) mmol/L BUN (7-17) mg/dL Creatinine (0.52-1.04) mg/dL Glucose (74-99) mg/dL POC Glucose (mg/dL) 299 H 275 H (75-99) mg/dL RBC Folate (280 - 791) ng/mL Urine Appearance Cloudy H (Clear) Urine Protein 1+ H (Negative) Urine Glucose (UA) 2+ H (Negative) Urine Ketones Trace H (Negative) Urine Blood Large H (Negative) Ur Leukocyte Esterase Large H (Negative) Urine RBC 41 H (0-5) /hpf Urine WBC 94 H (0-5) /hpf Urine WBC Clumps Many H (None) /hpf Ur Squamous Epith Cells 9 H (0-4) /hpf Urine Bacteria Many H (None) /hpf Urine Mucus Many H (None) /hpf Urine Yeast (Budding) Many H (None) /hpf Stool Occult Blood (Negative) C. difficile (EIA) Intrp (Negative) 06/22/20 06/22/20 06/22/20 Range/Units 06:00 07:09 07:09 WBC 13.3 H (3.8-10.6) k/uL RBC 3.66 L (3.80-5.40) m/uL Hgb 8.5 L (11.4-16.0) gm/dL Hct 28.9 L (34.0-46.0) % MCV 79.0 L (80.0-100.0) fL MCH 23.2 L (25.0-35.0) pg MCHC 29.4 L (31.0-37.0) g/dL RDW 18.6 H (11.5-15.5) % Neutrophils # 11.1 H (1.3-7.7) k/uL Carbon Dioxide 34 H (22-30) mmol/L BUN 31 H (7-17) mg/dL Creatinine 0.37 L (0.52-1.04) mg/dL Glucose 220 H (74-99) mg/dL POC Glucose (mg/dL) 230 H (75-99) mg/dL RBC Folate (280 - 791) ng/mL Urine Appearance (Clear) Urine Protein (Negative) Urine Glucose (UA) (Negative) Urine Ketones (Negative) Urine Blood (Negative) Ur Leukocyte Esterase (Negative) Urine RBC (0-5) /hpf Urine WBC (0-5) /hpf Urine WBC Clumps (None) /hpf Ur Squamous Epith Cells (0-4) /hpf Urine Bacteria (None) /hpf Urine Mucus (None) /hpf Urine Yeast (Budding) (None) /hpf Stool Occult Blood (Negative) C. difficile (EIA) Intrp (Negative) 06/22/20 Range/Units 11:35 WBC (3.8-10.6) k/uL RBC (3.80-5.40) m/uL Hgb (11.4-16.0) gm/dL Hct (34.0-46.0) % MCV (80.0-100.0) fL MCH (25.0-35.0) pg MCHC (31.0-37.0) g/dL RDW (11.5-15.5) % Neutrophils # (1.3-7.7) k/uL Carbon Dioxide (22-30) mmol/L BUN (7-17) mg/dL Creatinine (0.52-1.04) mg/dL Glucose (74-99) mg/dL POC Glucose (mg/dL) 219 H (75-99) mg/dL RBC Folate (280 - 791) ng/mL Urine Appearance (Clear) Urine Protein (Negative) Urine Glucose (UA) (Negative) Urine Ketones (Negative) Urine Blood (Negative) Ur Leukocyte Esterase (Negative) Urine RBC (0-5) /hpf Urine WBC (0-5) /hpf Urine WBC Clumps (None) /hpf Ur Squamous Epith Cells (0-4) /hpf Urine Bacteria (None) /hpf Urine Mucus (None) /hpf Urine Yeast (Budding) (None) /hpf Stool Occult Blood (Negative) C. difficile (EIA) Intrp (Negative) Microbiology - Last 24 Hours (Table) 06/16/20 23:35 Blood Culture - Preliminary Blood No Growth after 120 hours 06/21/20 17:13 Urine Culture - Preliminary Urine,Voided Assessment and Plan Plan: Assessment: #1. Acute on chronic hypercapnic respiratory failure, related to ESBL E. coli with sepsis #2. Chronic hypercapnic respiratory failure related to obesity hypoventilation syndrome, possibility of obstructive sleep apnea #3. History of multiple old strokes, and bilateral parietal and right occipital, with history of right-sided weakness, dysphagia #4. History of dysphagia, status post PEG tube placement #5. Patient is bedbound, and is a resident of a local [facility]. She has a legal guardian #6. Chronic anemia #7. Hx of atrial fibrillation, currently in sinus rhythm, on chronic anticoagulation with Eliquis, history of permanent pacemaker implantation #8. History of hypertension #9. Hyperlipidemia #10. 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 History of lumbar fusion #12. Morbid obesity #13. Previous history of ESBL urinary tract infection #14. C. diff colitis #15. Anemia with possible GI bleed Plan: Continue current medical treatment, continue antibiotic per ID service adalgisa mmendations, use BiPAP support as needed, and probably patient needs to be on BiPAP support intermittently through the day, and at bedtime with pressures of 12 and 6 and FiO2 of 30% for suspected obesity hypoventilation syndrome with chronic hypercapnic respiratory failure. We will add Provera 20 mg daily and Diamox 500 mg BID to improve her ventilatory drive. Vital signs have been stable overnight, from pulmonary perspective patient can be considered for discharge back to the ECF when cleared by medicine, and other consultants I performed a history & physical examination of the patient and discussed their management with my nurse practitioner, Yoanna Ace. I reviewed the nurse practitioner's note and agree with the documented findings and plan of care. Lung sounds are positive for diminished breath sounds. The findings and the impression was discussed with the patient. I attest to the documentation by the nurse practitioner. Time with Patient: Less than 30
[2020-06-22 17:47] LABS: Glucose,Whole Blood 321 mg/dL (75-99)
--- NOTE | 2020-06-22 23:47 | P.PN ---
Progress Note - Text Progress Note Date: 06/22/20 interval history: This is a pleasant 69 years old female with past medical history of stroke since 2017 with dysphagia status post PEG tube. Other medical problems including atrial fibrillation, DVT, GERD, hyperlipidemia, hypertension. Presents because of altered mental status and low-grade fever. Patient could not provide information and were obtained from the chart. As per documentation was presented because of altered mental status with Schiller respiration and there was concerns for aspiration. [facility]. Patient does not follow, and currently. He had a temperature of 100.0 upon admission. He was also hypoxic 88% on 4 L oxygen dependent and a cannula, came up to 99% on 10 L Labs showing mild leukocytosis of 12.8, hemoglobin is 8.0, platelet is normal. INR is 1.1, ABG showing low pH of 7.2 and high pCO2 of 89 and bicarb of 38, oxygen is 296. Potassium slightly elevated at 5.6, creatinine is normal 0.65. Liver enzymes not elevated. Troponin is negative less than 0.012. C-reactive protein is slightly elevated at 19, lactate dehydrogenase is normal at 453. ProBNP is 2730. Urinalysis is suspicious for infection. Urinary tract screen is negative Coronal virus not detected EKG showed normal sinus rhythm at [address]-T changes CT of the brain: Bilateral old infarcts in the right and left parietal lobes and the right occipital lobe. Right parietal infarct not change compared to old exam. The other infarcts appear new. Cerebral atrophy Patient already has been evaluated by neurologist recommended cardiology evaluation for possible cardioembolic source In the emergency room patient was started on ceftriaxone, Solu-Medrol 60 mg and he received 2 L of normal saline and then continued at 100 mL per hour. Also he was started on BiPAP there was concern for anemia with a low hemoglobin at 8.0. 06/18/2020 Patient still nonverbal she opens eyes to verbal and tactile stimuli but she does not follow command. She still needed and BiPAP this morning. She still have altered mental status EEG showing moderate to severe encephalopathy but no epileptiform discharge. Carotid duplex showing bilateral carotid artery stenosis about 50-69%. Echocardiogram showing ejection fraction of 65-70% with LV wall hypokinesia. Urine culture is growing gram-negative bacilli and currently she is on meropenem for possible ESBL Eliquis is still on hold because of possible GI bleed and significant anemia. Anemia workup still undergoing, occult blood in stool is pending. Cardiology and neurology on the case for her altered mental status and multiple strokes to rule out cardiac source of emboli. Covid test is negative I discussed the case with her daughter miss PURVIS at [phone]. 06/19/2020 Patient is awake and alert today, she opens eyes spontaneously, she couldn't tell the name, surgical felt that she isn't [facility] and answer other questions appropriately, she follows commands. Breathing is easier today. Generally she feels good. She denies chest pain or abdominal pain she has 1+ leg edema. Blood pressure is 170/70, rest of Vitas looks stable. Sugar is slightly elevated. She was on Levemir 44 units and Januvia 100 mg of metformin 1000 mg twice a day, also she is currently on steroids. We are going to resume her insulin and monitor closely. Urine is going ESBL E. coli which is sensitive to meropenem. Eliquis is still on hold for possible GI bleed, surgery team were consulted for low hemoglobin. Cardiology team on the case. Check labs today. 06/20/2020 Patient clinically looks same as yesterday, she is awake she can say she is in [facility] however she still not fully oriented to the surrounding. She follows some commands but not every single one. She does not have respiratory distress and her hemodynamics are stable. Her urine culture is going ESBL E. coli and she is on appropriate antibiotics with me upon them. Surgeon input is appreciated and they recommended EGD/colonoscopy to rule out GI bleed. Because of her anemia her Eliquis is on hold for now. Hemoglobin is slightly trending up today to 8.6. WBC is back to normal patient can be transferred from the select unit to the general medical floor 06/21/2020 This is a pleasant 69 y old female who was originally admitted for altered mental status secondary to hypercapnic respiratory failure thought secondary to possible obstructive sleep apnea with some elements of obesity hypoventilation syndrome, exacerbated by her ESBL E. coli UTI, patient improved with BiPAP therapy and now she is fully awake, she knows in the hospital and almost she is at baseline mental status. She is on meropenem. Infectious disease been consulted. As part of altered Percocet workup neurologist has been consulted and imaging showed multiple strokes with recommendation to rule out cardiac embolic source health science specialist has been consulted. Patient is already on liquids which is placed on hold for consult for GI bleed. Patient may need endoscopy by surgery team uncertain time this week. Covid test is negative. CT of the neck is negative. Currently patient also on Solu-Medrol 40 mg and gentle hydration, sugar is on the high side and Levemir increased to 50 units Also today she has a job and red cell count to 16 K, with large soft to loose bowel movement with blood suspected as well. C. diff and occult blood in stool is requested Overall the prognosis is guarded June 22: Propped up in bed. Follows simple commands. Getting 2 feeding. Getting fluids and antibiotics. Progress review of systems-patient not really answering questions Active Medications Acetaminophen (Acetaminophen Oral Susp (Peds) 3,840 Mg/120 Ml Bottle) 650 mg PEG/G-TUBE Q4H PRN PRN Reason: Fever Last Admin: 06/21/20 14:27 Dose: 650 mg Documented by: Acetazolamide (Acetazolamide 250 Mg Tab) 500 mg PO DAILY [facility] Albuterol/Ipratropium (Ipratropium-Albuterol 3 Ml Neb) 3 ml INHALATION RT-QID [facility] Last Admin: 06/22/20 20:18 Dose: Not Given Documented by: Albuterol/Ipratropium (Ipratropium-Albuterol 3 Ml Neb) 3 ml INHALATION RT-Q4H PRN PRN Reason: Shortness Of Breath Or Wheezing Aspirin (Aspirin 81 Mg) 81 mg PO DAILY [facility] Last Admin: 06/22/20 08:59 Dose: 81 mg Documented by: Atorvastatin Calcium (Atorvastatin 40 Mg Tab) 40 mg PEG/G-TUBE DAILY@1400 [facility] Last Admin: 06/22/20 13:02 Dose: Not Given Documented by: Cyanocobalamin (Cyanocobalamin 500 Mcg Tab) 500 mcg PEG/G-TUBE DAILY [facility] Last Admin: 06/22/20 08:36 Dose: Not Given Documented by: Furosemide (Furosemide 20 Mg Tab) 20 mg PEG/G-TUBE DAILY [facility] Last Admin: 06/22/20 08:59 Dose: 20 mg Documented by: Sodium Chloride (Saline 0.9%) 1,000 mls @ 75 mls/hr IV .[id number] [facility] Last Admin: 11/30/20 08:14 Dose: 75 mls/hr Documented by: Meropenem 1 gm/ Sodium (Chloride) 100 mls @ 33.3 mls/hr IVPB Q8H [facility]; Protocol Last Admin: 06/22/20 17:42 Dose: 33.3 mls/hr Documented by: Insulin Aspart (Insulin Aspart (Novolog) 100 Unit/Ml Vial) 0 unit SQ Q6HR [facility]; Protocol Last Admin: 06/22/20 17:58 Dose: 8 unit Documented by: Insulin Detemir (Insulin Detemir (Levemir) 100 Unit/Ml Syr) 50 unit SQ DAILY@0700 [facility] Last Admin: 06/22/20 08:12 Dose: 50 unit Documented by: Lisinopril (Lisinopril 20 Mg Tab) 20 mg PEG/G-TUBE DAILY [facility] Last Admin: 06/22/20 08:59 Dose: 20 mg Documented by: Medroxyprogesterone Acetate (Medroxyprogesterone 2.5 Mg Tab) 20 mg PO DAILY [facility] Methylprednisolone Sodium Succinate (Methylprednisolone Sod Succi 40 Mg/Ml 1 Ml Vial) 40 mg IV Q12HR [facility] Last Admin: 06/22/20 22:14 Dose: 40 mg Documented by: Metoprolol Tartrate (Metoprolol Tartrate 50 Mg Tab) 50 mg PEG/G-TUBE BID [facility] Last Admin: 06/22/20 22:13 Dose: 50 mg Documented by: Nitroglycerin (Nitroglycerin Sl Tabs 0.4 Mg Tab) 0.4 mg SUBLINGUAL Q5M PRN PRN Reason: Chest Pain Pantoprazole Sodium (Pantoprazole 40 Mg/10 Ml Vial) 40 mg IVP DAILY [facility] Last Admin: 06/22/20 08:12 Dose: 40 mg Documented by: Vancomycin HCl (Vancomycin Oral Solution 250 Mg/5 Ml Bottle) 125 mg PEG/G-TUBE QID [facility] Last Admin: 06/22/20 22:14 Dose: 125 mg Documented by: On examination: VITAL SIGNS: [97.6, 68, 16, 126.77, 100% room air] GENERAL APPEARANCE: BMI 41.4, sitting up, awake, tired. HEENT: Normal external appearance of nose and ear. Oral cavity -dry mucous membranesl EYES: Pupils equal. Conjunctiva normal. NECK: JVD unable to assess. Mass not palpable. RESPIRATORY: Respiratory effort increased. Lungs decreased breath sounds CARDIOVASCULAR: distant heart soundsl. No edema. ABDOMEN: Soft. Liver and spleen not palpable. No tenderness. No mass palpable. PEG tube feeding PSYCHIATRY: not really answering questions NEUROLOGICAL: Weakness of the right-sided limbs INVESTIGATIONS, reviewed in the clinical context: white count 13.3 hemoglobin 8.5 platelets 184 potassium 4.7 bun 31creatinine 0.37 Urine culture-E. coli/ESBL Neck CT-no significant stenosis EEG-showing evidence of moderate to severe encephalopathy. Carotid Przhcge-95-74% bilateral ICA stenosis 2-D echocardiogram-EF 65-70%. With some hypokinetic chacko. And LVH Computed tomography scan brain-lateral or infarction the right and left parietal lobes and right occipital lobe. assessment: Acute hypoxic, hypercapnic respiratory failure, improved Possible obstructive sleep apnea with some elements of COPD exacerbation and obesity hypoventilation syndrome Metabolic encephalopathy secondary to above, improved possiblyAcute urinary tract infection, secondary to ESBL E. coli-repeat cultures have been ordered Hypochromic microcytic Anemia, rule out GI bleed -being followed by Dr. Steele Multiple old strokes. some possibly cardioembolic per neurology. history of stroke since 2017 with dysphagia status post PEG tube Hypertension Hyperlipidemia Diabetes mellitus History of paroxysmal atrial fibrillation, was on Eliquis C. diff colitis Plan: patient currently on DuoNeb, Lipitor, Lasix, Levemir, IV meropenem, IV Solu- Medrol and oral vancomycin. IV fluids. Change Solu-Medrol to by mouth prednisone
--- NOTE | 2020-06-23 00:54 | PN ---
PROGRESS NOTE DATE OF SERVICE: 06/22/2020 REASON FOR FOLLOWUP: UTI and C difficile colitis. INTERVAL HISTORY: The patient is currently afebrile. Patient is breathing comfortably, hemodynamically stable. Lying in bed in no distress. No vomiting or nurse has reported any worsening diarrhea. Patient herself was unable to provide any history. PHYSICAL EXAMINATION: Blood pressure 136/70 with a pulse of 52, temperature 98.5. She is 93% on room air. General description is an elderly female lying in bed in no distress. RESPIRATORY SYSTEM: Unlabored breathing, decreased breath sounds at bases. No wheeze. HEART: S1, S2. Regular rate and rhythm. ABDOMEN: Soft, no tenderness. LABS: BUN of 31, creatinine 0.37. White count down to 13.3. Repeat urine is positive. DIAGNOSTIC IMPRESSION AND PLAN: 1. Patient with a positive urine culture with ESBL Escherichia coli with concern for possible colonization. Repeat urine is still positive. Patient to continue with meropenem. 2. Clostridium difficile colitis. Continue with oral vancomycin and monitor clinical course closely. MMODL / IJN: [id number] /
[2020-06-23 00:58] LABS: Glucose,Whole Blood 189 mg/dL (75-99)
[2020-06-23] MEDS: INSULIN ASPART (NovoLOG) 100 UNIT/ML VIAL SQ SCH ×4 (01:01→18:05)
[2020-06-23] MEDS: MEROPENEM 1 GM in SODIUM CHLORIDE 0.9% 100 ML IVPB SCH ×3 (01:01→18:04)
[2020-06-23 06:09] LABS: Glucose,Whole Blood 184 mg/dL (75-99)
[2020-06-23 07:11] LABS: Anisocytosis Slight; Basophils % (A) 0 %; Eosinophils # (A) 0.1 k/uL (0-0.7); Eosinophils % (A) 1 %; HCT 28.4 % (34.0-46.0); HGB 7.9 gm/dL (11.4-16.0); Hypochromasia Marked; Lymphocytes # (A) 1.2 k/uL (1.0-4.8); Lymphocytes % (A) 11 %; MCH 21.8 pg (25.0-35.0); MCHC 27.9 g/dL (31.0-37.0); MCV 78.1 fL (80.0-100.0); Mean Platelet Volume 9.5; Microcytosis Slight; Monocytes # (A) 0.4 k/uL (0-1.0); Monocytes % (A) 4 %; Neutrophils # (A) 8.9 k/uL (1.3-7.7); Neutrophils % (A) 83 %; Platelet Count 182 k/uL (150-450); Poikilocytosis Marked; RBC 3.64 m/uL (3.80-5.40); RDW 18.8 % (11.5-15.5); WBC 10.7 k/uL (3.8-10.6)
[2020-06-23 07:51] LABS: Poikilocytosis (M) Present; Polychromasia Present
[2020-06-23] MEDS: IPRATROPIUM-ALBUTEROL 3 ML NEB INHALATION SCH ×4 (09:32→21:19)
[2020-06-23] MEDS: SODIUM CHLORIDE 0.9% 1,000 ML IV SCH ×2 (10:04→21:36)
[2020-06-23] MEDS: INSULIN DETEMIR (LEVEMIR) 100 UNIT/ML SYR SQ SCH (10:04)
[2020-06-23] MEDS: ATORVASTATIN 40 MG TAB PEG/G-TUBE SCH (10:05)
[2020-06-23] MEDS: ASPIRIN 81 MG PO SCH (10:05)
[2020-06-23] MEDS: FUROSEMIDE 20 MG TAB PEG/G-TUBE SCH (10:05)
[2020-06-23] MEDS: METOPROLOL TARTRATE 50 MG TAB PEG/G-TUBE SCH ×2 (10:05→21:35)
[2020-06-23] MEDS: CYANOCOBALAMIN 500 MCG TAB PEG/G-TUBE SCH (10:05)
[2020-06-23] MEDS: lisinopriL 20 MG TAB PEG/G-TUBE SCH (10:05)
[2020-06-23] MEDS: predniSONE 20 MG TAB PO SCH (10:05)
[2020-06-23] MEDS: acetaZOLAMIDE 250 MG TAB PO SCH (10:05)
[2020-06-23] MEDS: PANTOPRAZOLE 40 MG/10 ML VIAL IVP SCH (10:06)
[2020-06-23] MEDS: VANCOMYCIN ORAL SOLUTION 250 MG/5 ML BOTTLE PEG/G-TUBE SCH ×4 (10:16→21:35)
[2020-06-23 11:59] LABS: Glucose,Whole Blood 231 mg/dL (75-99)
--- NOTE | 2020-06-23 12:47 | P.PN ---
Subjective Progress Note Date: 06/23/20 CHIEF COMPLAINT: Possible GI bleed HISTORY OF PRESENT ILLNESS: Patient is being followed for possible GI bleed. Her last bowel movement was on 06/21/2020. No blood reported in stool. She is being treated for C. diff and possible UTI. She is afebrile. WBC is 10.7 hemoglobin 7.9. She is tolerating her tube feeds. PHYSICAL EXAM: VITAL SIGNS: Reviewed. GENERAL: Well-developed in no acute distress. HEENT: No sclera icterus. Extraocular movements grossly intact. Moist buccal mucosa. Head is atraumatic, normocephalic. ABDOMEN: Soft. Nondistended. Nontender. PEG tube site clean dry and intact NEUROLOGIC: Alert and oriented. Cranial nerves II through XII grossly intact. ASSESSMENT: 1. Anemia with possible GI bleed 2. C. diff colitis PLAN: -Continue to monitor hemoglobin -Continue to monitor patient closely -Continue tube feeding -Continue supportive care Physician Receiving Weigher note has been reviewed by physician. Signing provider agrees with the documented findings, assessment, and plan of care. Objective - Vital Signs Vital signs: Vital Signs Temp 97.9 F 06/23/20 07:00 Pulse 76 06/23/20 12:38 Resp 16 06/23/20 12:38 BP 148/88 06/23/20 07:00 Pulse Ox 98 06/23/20 07:00 Intake & Output 06/22/20 06/23/20 06/23/20 18:59 06:59 18:59 Intake Total 600 Output Total 1300 750 Balance -700 -750 Weight 120 kg 120.5 kg Intake: Tube Feeding 600 Output: Urine 1300 750 Uretheral (Epstein) 300 Other: Voiding Method Indwelling Catheter Indwelling Catheter Indwelling Catheter - Labs CBC & Chem 7: 06/23/20 06:31 06/22/20 07:09 Labs: Abnormal Lab Results - Last 24 Hours (Table) 06/18/20 06/22/20 06/23/20 Range/Units 09:31 17:46 00:56 WBC (3.8-10.6) k/uL RBC (3.80-5.40) m/uL Hgb (11.4-16.0) gm/dL Hct (34.0-46.0) % MCV (80.0-100.0) fL MCH (25.0-35.0) pg MCHC (31.0-37.0) g/dL RDW (11.5-15.5) % Neutrophils # (1.3-7.7) k/uL POC Glucose (mg/dL) 321 H 189 H (75-99) mg/dL RBC Folate 795 H (280 - 791) ng/mL 06/23/20 06/23/20 06/23/20 Range/Units 05:59 06:31 11:58 WBC 10.7 H (3.8-10.6) k/uL RBC 3.64 L (3.80-5.40) m/uL Hgb 7.9 L (11.4-16.0) gm/dL Hct 28.4 L (34.0-46.0) % MCV 78.1 L (80.0-100.0) fL MCH 21.8 L (25.0-35.0) pg MCHC 27.9 L (31.0-37.0) g/dL RDW 18.8 H (11.5-15.5) % Neutrophils # 8.9 H (1.3-7.7) k/uL POC Glucose (mg/dL) 184 H 231 H (75-99) mg/dL RBC Folate (280 - 791) ng/mL Microbiology - Last 24 Hours (Table) 06/16/20 23:35 Blood Culture - Final Blood No Growth after 144 hours 06/21/20 17:13 Urine Culture - Preliminary Urine,Voided Gram Neg Bacilli
[2020-06-23 18:02] LABS: Glucose,Whole Blood 359 mg/dL (75-99)
--- NOTE | 2020-06-23 19:22 | P.PN ---
Subjective Progress Note Date: 06/23/20 She was seen at bedside and the according the patient nurse there is no acute events overnight. No seizure-like activity noticed. Neurologically she's been stable. Patient has positive urine culture ESBL Escherichia coli and Clostridium difficle colitis. Objective - Vital Signs Vital signs: Vital Signs Temp 98.6 F 06/23/20 14:00 Pulse 70 06/23/20 16:41 Resp 16 06/23/20 16:41 BP 136/74 06/23/20 14:00 Pulse Ox 96 06/23/20 14:00 Intake & Output 06/23/20 06/23/20 06/24/20 06:59 18:59 06:59 Output Total 750 1300 Balance -750 -1300 Weight 120.5 kg Output: Urine 750 1300 Other: Voiding Method Indwelling Catheter Indwelling Catheter - Exam GENERAL: The patient is lying in bed and is not in acute distress. NEUROLOGICAL: Higher mental function: The patient is more awake today and is oriented to self and place. No oriented to the year stated it 1989'. . Otherwise did not verbalize anything else for me. Was following simple commands such as showing a thumb up over the left. 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 The right pupils is minimally to unreactive to light while left is sluggishly reactive to light. Unable to assess extraocular movement because of cooperation. Unable to assess facial sensation because of her cooperation. No noticeable facial weakness noticed. Motor: Gait is deferred. The Strength: Left upper extremity she was able to lift above gravity. But not moving the right upper extremity. Not moving bilateral lower extremities for me today (she has residual weakness of right sided weakness). Increased tone over the right sided. Cerebellum: Unable to assess because of cooperation. Sensation: Unable to assess light touch but grimaces throughout to painful stimuli. Reflexes (right/left): 1+ throughout. Plantars are mute bilaterally. - Labs CBC & Chem 7: 06/23/20 06:31 06/22/20 07:09 Labs: Abnormal Lab Results - Last 24 Hours (Table) 06/23/20 06/23/20 06/23/20 Range/Units 00:56 05:59 06:31 WBC 10.7 H (3.8-10.6) k/uL RBC 3.64 L (3.80-5.40) m/uL Hgb 7.9 L (11.4-16.0) gm/dL Hct 28.4 L (34.0-46.0) % MCV 78.1 L (80.0-100.0) fL MCH 21.8 L (25.0-35.0) pg MCHC 27.9 L (31.0-37.0) g/dL RDW 18.8 H (11.5-15.5) % Neutrophils # 8.9 H (1.3-7.7) k/uL POC Glucose (mg/dL) 189 H 184 H (75-99) mg/dL 06/23/20 06/23/20 Range/Units 11:58 18:00 WBC (3.8-10.6) k/uL RBC (3.80-5.40) m/uL Hgb (11.4-16.0) gm/dL Hct (34.0-46.0) % MCV (80.0-100.0) fL MCH (25.0-35.0) pg MCHC (31.0-37.0) g/dL RDW (11.5-15.5) % Neutrophils # (1.3-7.7) k/uL POC Glucose (mg/dL) 231 H 359 H (75-99) mg/dL Microbiology - Last 24 Hours (Table) 06/21/20 17:13 Urine Culture - Preliminary Urine,Voided Pseudomonas aeruginosa 06/16/20 23:35 Blood Culture - Final Blood No Growth after 144 hours Assessment and Plan Assessment: This is a 69-year-old with significant medical history that presented to our emergency department on 06/16/20 for altered mental status. Per the nursing facility the patient has been short of breath. Per the patient's nurse, patient baseline per nursing facility is non-verbal and bed bound. Upon my examination she is minimally verbal and was oriented X2 with residual weakness over the right side. She does follow some simple commands. * Toxic metabolic encephalopathy: Due to multiple factorial respiratory failure, urinary tract infection, C.Diff colitis)--improving * Multiple old stroke (bilateral parietal and right occipital reported on current CT head. Patient had MRI the brain on 02/16/2017 was reported as multifocal predominantly cortical area of subacute stroke. Restricted diffusion noted in the left and right cerebellar hemisphere, additional foci involving the medial occipital lobe right greater than the left, temporal lobe bilaterally with small foci scattered in the frontal lobe, larger area in the right greater than the left parietal lobe. This is likely due to cardioembolic. * On examination it seems the patient has residual right-sided weakness which is also documented in the past medical history. * History of dysphagia s/p PEG tube due to stroke * Uncontrolled diabetes * Acute on chronic respiratory failure * Anemia * Atrial fibrillation s/p pacemaker and on Eliquis 5 mg twice a day * Urinary tract infection * C. 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 2-D echo: Moderate concentric left ventricular hypertrophy. Ejection fraction o f 65-70%. Basal and for septal left ventricle wall motion is hypokinetic. Mild anteroseptal left ventricular wall motion is hypokinetic. Left atrial size is normal. carotid duplex: Suboptimal evaluation of the carotid arteries due to patient body habitus, patient condition, and tortuous internal carotid arteries. Low- flow less than 45 cm/s of the bilateral common carotid arteries may be secondary to poor cardiac output. Increase of flow parameters of bilateral internal carotid artery suggestive 50-69% stenosis, however may be artifactual due to [place]. Recommend correlation with a CT examination of the neck. CTA of the neck: No significant stenosis in the common or internal carotid arteries bilaterally. Lipid profile: Triglyceride 122, cholesterol 109, LDL 68, HDL is 27. Continue aspirin 81 mg daily. Patient does have according to the medical record and history of atrial fi brillation and she is on Eliquis 5 mg twice a day which is being held because of the patient's anemia. Which is being held. Cotinue Lipitor 40 mg daily. Cardiology is on board since old strokes seem cardioembolic. Physical therapy, occupational therapy and therapy are consulted routine EEG on 06/18/2020 and the background does show slowing suggestive of moderate to severe encephalopathy of nonspecific etiology. There are no focal slowing, Otoniel discharges or seizure on the routine EEG. On 06/16/20TSH is 3.21 which is normal, hemoglobin A1c is 6.3 which is elevated. These labs don't need to be repeated. vitamin B12: 355 (normal and the normal is between 209 144). Therefore I'll sta rt the patient on the vitamin B12 500mcg daily since slightly on the low normal. folate: 795 (high--which is normal). Defer and the management of anemia and uncontrolled diabetes to the primary team. Regarding the patient urinary tract infection and any other underlying infection will defer management to the primary team. Regarding the patient respiratory symptoms, Respiratory is on board. We'll follow the patient sporadically. Twin Pan M.D. Neuro-hospitalist Time with Patient: Less than 30
--- NOTE | 2020-06-23 19:37 | PN ---
PROGRESS NOTE PULMONARY/CRITICAL CARE PROGRESS NOTE: DATE OF SERVICE: 06/23/2020 69-year-old female who was admitted way back on June 16. She was admitted with a diagnosis of acute on chronic hypercapnic respiratory failure secondary to ESBL, E coli with sepsis. In addition, she does have likely Pickwickian syndrome and possibly sleep apnea syndrome. The patient is doing better. She seems much more awake and alert. Yesterday we added Diamox to create a small metabolic acidosis which might stimulate her ventilatory drive and also added some medroxyprogesterone at 20 mg once a day for the same reason. She has a history of lumbar fusion, morbid obesity, C difficile colitis, chronic anemia, and history of dysphagia. Again, clinically she is feeling much better. PHYSICAL EXAMINATION: VITAL SIGNS: Currently, her room-air saturation is 96%. Blood pressure 136/74, respiratory rate 16, heart rate 70, and temperature 98.6. She appears in no acute distress. HEENT: Examination is grossly unremarkable. No supplemental oxygen. NECK: Supple. Full range of motion. No adenopathy. Neck veins are flat. CARDIOVASCULAR: Examination reveals regular rhythm and rate. S1, S2 normal. No S3, S4, or murmur. LUNGS: Reveal diminished breath sounds. No wheezes, rhonchi, or crackles. ABDOMEN: Obese. Bowel sounds are heard. EXTREMITIES are intact. Mild edema. SKIN: Without rash. NEUROLOGIC: Examination is brief but nonfocal. White count 10.7, hemoglobin 7.9, hematocrit 28.4, platelet count 182,000. No additional labs to report. Microbiology showing gram-negative bacilli in the urine from June 21 and previous urine culture from the [facility] showing Escherichia coli. No recent chest x-rays to report. MEDICATIONS: Reviewed. She is currently on Tylenol, Diamox, aspirin, Lipitor, vitamin B12, Lasix, insulin, DuoNeb, lisinopril, Provera, meropenem, metoprolol, nitroglycerin sublingual, Protonix, prednisone and vancomycin orally. ASSESSMENT: 1. Acute on chronic hypercapnic respiratory failure likely related to underlying sepsis secondary to extended spectrum beta lactamase producing Escherichia coli. 2. Chronic hypercapnic respiratory failure, likely related to obesity/hypoventilation syndrome (Pickwickian syndrome), as well as likely obstructive sleep apnea syndrome. 3. History of multiple old strokes in the bilateral parietal and right occipital area with residual right-sided weakness and dysphagia. 4. Status post PEG tube placement for chronic dysphagia. 5. Morbid obesity. 6. Chronic anemia. 7. History of atrial fibrillation. 8. History of hypertension. 9. Hyperlipidemia. 10.Diabetes with diabetic retinopathy. 11.History of lumbar fusion. 12.Previous history of ESBL urinary tract infection. 13.C difficile colitis. 14.Chronic anemia. PLAN: The patient was given Diamox 500 mg a day yesterday to promote a mild metabolic acidosis to stimulate her ventilatory drive. In addition, we added Provera 20 mg once a day for the same reason. Additional recommendations and suggestions are forthcoming. Prognosis is guarded. We will continue to follow. No additional recommendations are made at this time. MMODL / IJN: [id number] /
--- NOTE | 2020-06-23 22:03 | P.PN ---
Progress Note - Text Progress Note Date: 06/23/20 interval history: This is a pleasant 69 years old female with past medical history of stroke since 2017 with dysphagia status post PEG tube. Other medical problems including atrial fibrillation, DVT, GERD, hyperlipidemia, hypertension. Presents because of altered mental status and low-grade fever. Patient could not provide information and were obtained from the chart. As per documentation was presented because of altered mental status with Schiller respiration and there was concerns for aspiration. He came from [facility]. Patient does not follow, and currently. He had a temperature of 100.0 upon admission. He was also hypoxic 88% on 4 L oxygen dependent and a cannula, came up to 99% on 10 L Labs showing mild leukocytosis of 12.8, hemoglobin is 8.0, platelet is normal. INR is 1.1, ABG showing low pH of 7.2 and high pCO2 of 89 and bicarb of 38, oxygen is 296. Potassium slightly elevated at 5.6, creatinine is normal 0.65. Liver enzymes not elevated. Troponin is negative less than 0.012. C-reactive protein is slightly elevated at 19, lactate dehydrogenase is normal at 453. ProBNP is 2730. Urinalysis is suspicious for infection. Urinary tract screen is negative Coronal virus not detected EKG showed normal sinus rhythm at [address]-T changes CT of the brain: Bilateral old infarcts in the right and left parietal lobes and the right occipital lobe. Right parietal infarct not change compared to old exam. The other infarcts appear new. Cerebral atrophy Patient already has been evaluated by neurologist recommended cardiology evaluation for possible cardioembolic source In the emergency room patient was started on ceftriaxone, Solu-Medrol 60 mg and he received 2 L of normal saline and then continued at 100 mL per hour. Also he was started on BiPAP there was concern for anemia with a low hemoglobin at 8.0. 06/18/2020 Patient still nonverbal she opens eyes to verbal and tactile stimuli but she does not follow command. She still needed and BiPAP this morning. She still have altered mental status EEG showing moderate to severe encephalopathy but no epileptiform discharge. Carotid duplex showing bilateral carotid artery stenosis about 50-69%. Echocardiogram showing ejection fraction of 65-70% with LV wall hypokinesia. Urine culture is growing gram-negative bacilli and currently she is on meropenem for possible ESBL Eliquis is still on hold because of possible GI bleed and significant anemia. Anemia workup still undergoing, occult blood in stool is pending. Cardiology and neurology on the case for her altered mental status and multiple strokes to rule out cardiac source of emboli. Covid test is negative I discussed the case with her daughter miss PURVIS at [phone]. 06/19/2020 Patient is awake and alert today, she opens eyes spontaneously, she couldn't tell the name, surgical felt that she isn't [facility] and answer other questions appropriately, she follows commands. Breathing is easier today. Generally she feels good. She denies chest pain or abdominal pain she has 1+ leg edema. Blood pressure is 170/70, rest of Vitas looks stable. Sugar is slightly elevated. She was on Levemir 44 units and Januvia 100 mg of metformin 1000 mg twice a day, also she is currently on steroids. We are going to resume her insulin and monitor closely. Urine is going ESBL E. coli which is sensitive to meropenem. Eliquis is still on hold for possible GI bleed, surgery team were consulted for low hemoglobin. Cardiology team on the case. Check labs today. 06/20/2020 Patient clinically looks same as yesterday, she is awake she can say she is in [facility] however she still not fully oriented to the surrounding. She follows some commands but not every single one. She does not have respiratory distress and her hemodynamics are stable. Her urine culture is going ESBL E. coli and she is on appropriate antibiotics with me upon them. Surgeon input is appreciated and they recommended EGD/colonoscopy to rule out GI bleed. Because of her anemia her Eliquis is on hold for now. Hemoglobin is slightly trending up today to 8.6. WBC is back to normal patient can be transferred from the select unit to the general medical floor 06/21/2020 This is a pleasant 69 y old female who was originally admitted for altered mental status secondary to hypercapnic respiratory failure thought secondary to possible obstructive sleep apnea with some elements of obesity hypoventilation syndrome, exacerbated by her ESBL E. coli UTI, patient improved with BiPAP therapy and now she is fully awake, she knows in the hospital and almost she is at baseline mental status. She is on meropenem. Infectious disease been consulted. As part of altered Percocet workup neurologist has been consulted and imaging showed multiple strokes with recommendation to rule out cardiac embolic source supervisor feed mill has been consulted. Patient is already on liquids which is placed on hold for consult for GI bleed. Patient may need endoscopy by surgery team uncertain time this week. Covid test is negative. CT of the neck is negative. Currently patient also on Solu-Medrol 40 mg and gentle hydration, sugar is on the high side and Levemir increased to 50 units Also today she has a job and red cell count to 16 K, with large soft to loose bowel movement with blood suspected as well. C. diff and occult blood in stool is requested Overall the prognosis is guarded June 22: Propped up in bed. Follows simple commands. Getting tube feeding. Getting fluids and antibiotics. June 23: Laying in bed. Comfortable. Getting 2 feedings. Progress review of systems-patient not really answering questions Active Medications Acetaminophen (Acetaminophen Oral Susp (Peds) 3,840 Mg/120 Ml Bottle) 650 mg PEG/G-TUBE Q4H PRN PRN Reason: Fever Last Admin: 06/21/20 14:27 Dose: 650 mg Documented by: Acetazolamide (Acetazolamide 250 Mg Tab) 500 mg PO DAILY [facility] Last Admin: 06/23/20 10:05 Dose: 500 mg Documented by: Albuterol/Ipratropium (Ipratropium-Albuterol 3 Ml Neb) 3 ml INHALATION RT-QID [facility] Last Admin: 06/23/20 21:19 Dose: 3 ml Documented by: Albuterol/Ipratropium (Ipratropium-Albuterol 3 Ml Neb) 3 ml INHALATION RT-Q4H PRN PRN Reason: Shortness Of Breath Or Wheezing Aspirin (Aspirin 81 Mg) 81 mg PO DAILY [facility] Last Admin: 06/23/20 10:05 Dose: 81 mg Documented by: Atorvastatin Calcium (Atorvastatin 40 Mg Tab) 40 mg PEG/G-TUBE DAILY@1400 [facility] Last Admin: 06/23/20 10:05 Dose: 40 mg Documented by: Cyanocobalamin (Cyanocobalamin 500 Mcg Tab) 500 mcg PEG/G-TUBE DAILY [facility] Last Admin: 06/23/20 10:05 Dose: 500 mcg Documented by: Furosemide (Furosemide 20 Mg Tab) 20 mg PEG/G-TUBE DAILY [facility] Last Admin: 06/23/20 10:05 Dose: 20 mg Documented by: Sodium Chloride (Saline 0.9%) 1,000 mls @ 75 mls/hr IV .[id number] [facility] Last Admin: 06/23/20 21:36 Dose: 75 mls/hr Documented by: Meropenem 1 gm/ Sodium (Chloride) 100 mls @ 33.3 mls/hr IVPB Q8H [facility]; Protocol Last Admin: 06/23/20 18:04 Dose: 33.3 mls/hr Documented by: Insulin Aspart (Insulin Aspart (Novolog) 100 Unit/Ml Vial) 0 unit SQ Q6HR [facility]; Protocol Last Admin: 06/23/20 18:05 Dose: 10 unit Documented by: Insulin Detemir (Insulin Detemir (Levemir) 100 Unit/Ml Syr) 50 unit SQ DAILY@ 0700 [facility] Last Admin: 06/23/20 10:04 Dose: 50 unit Documented by: Lisinopril (Lisinopril 20 Mg Tab) 20 mg PEG/G-TUBE DAILY [facility] Last Admin: 06/23/20 10:05 Dose: 20 mg Documented by: Medroxyprogesterone Acetate (Medroxyprogesterone 2.5 Mg Tab) 20 mg PO DAILY [facility] Last Admin: 06/23/20 10:06 Dose: 20 mg Documented by: Metoprolol Tartrate (Metoprolol Tartrate 50 Mg Tab) 50 mg PEG/G-TUBE BID [facility] Last Admin: 06/23/20 21:35 Dose: 50 mg Documented by: Nitroglycerin (Nitroglycerin Sl Tabs 0.4 Mg Tab) 0.4 mg SUBLINGUAL Q5M PRN PRN Reason: Chest Pain Pantoprazole Sodium (Pantoprazole 40 Mg/10 Ml Vial) 40 mg IVP DAILY [facility] Last Admin: 06/23/20 10:06 Dose: 40 mg Documented by: Prednisone (Prednisone 20 Mg Tab) 40 mg PO DAILY [facility] Last Admin: 06/23/20 10:05 Dose: 40 mg Documented by: Vancomycin HCl (Vancomycin Oral Solution 250 Mg/5 Ml Bottle) 125 mg PEG/G-TUBE QID [facility] Last Admin: 06/23/20 21:35 Dose: 125 mg Documented by: On examination: VITAL SIGNS: 98.7, 85, 17, 114/67, 98% GENERAL APPEARANCE: BMI 41.4, sitting up, awake, tired. HEENT: Normal external appearance of nose and ear. Oral cavity -dry mucous membranesl EYES: Pupils equal. Conjunctiva normal. NECK: JVD unable to assess. Mass not palpable. RESPIRATORY: Respiratory effort increased. Lungs decreased breath sounds CARDIOVASCULAR: distant heart sounds. No edema. ABDOMEN: Soft. Liver and spleen not palpable. No tenderness. No mass palpable. PEG tube feeding PSYCHIATRY: Good vargas NEUROLOGICAL: Weakness of the right-sided limbs INVESTIGATIONS, reviewed in the clinical context: White count 10.7 hemoglobin 7.9 Urine culture-E. coli/ESBL from June 16 Urine culture-Pseudomonas aeruginosa from June [address]-no significant stenosis EEG-showing evidence of moderate to severe encephalopathy. Carotid Dxwimst-90-93% bilateral ICA stenosis 2-D echocardiogram-EF 65-70%. With some hypokinetic chacko. And LVH Computed tomography scan brain-lateral or infarction the right and left parietal lobes and right occipital lobe. assessment: Acute hypoxic, hypercapnic respiratory failure, improved Possible obstructive sleep apnea with some elements of COPD exacerbation and obesity hypoventilation syndrome Metabolic encephalopathy secondary to above, improved possiblyAcute urinary tract infection, secondary to ESBL E. coli-repeat cultures growing Pseudomonas Hypochromic microcytic Anemia, rule out GI bleed -being followed by Dr. Steele Multiple old strokes. some possibly cardioembolic per neurology. history of stroke since 2017 with dysphagia status post PEG tube Hypertension Hyperlipidemia Diabetes mellitus History of paroxysmal atrial fibrillation, was on Eliquis C. diff colitis Plan: patient currently on DuoNeb, Lipitor, Lasix, Levemir, IV meropenem, oral prednisone and oral vancomycin. IV fluids. Follow with ID.
[2020-06-24 00:02] LABS: Glucose,Whole Blood 375 mg/dL (75-99)
[2020-06-24] MEDS: INSULIN ASPART (NovoLOG) 100 UNIT/ML VIAL SQ SCH ×3 (00:04→11:43)
--- NOTE | 2020-06-24 02:00 | PN ---
PROGRESS NOTE DATE OF SERVICE: 06/23/2020 REASON FOR FOLLOWUP: 1. UTI. 2. C difficile colitis. INTERVAL HISTORY: The patient is currently afebrile. The patient remains to be stable, lethargic and unable to provide any history. No vomiting has been reported or any further diarrhea by the nursing staff. PHYSICAL EXAMINATION: Blood pressure 114/67 with pulse 85, temperature 98.7. She is 98% on room air. General description is an elderly female lying in bed in no distress. RESPIRATORY SYSTEM: Unlabored breathing, decreased breath sounds at the bases. No wheeze. HEART: S1, S2. Regular rate and rhythm. ABDOMEN: Soft, no tenderness. LABS: Hemoglobin 7.9, white count 10.7. Urine has now been finalized with CRE. DIAGNOSTIC IMPRESSION AND PLAN: 1. Patient with a positive urine culture with ESBL Escherichia coli, possible now with change of Epstein and a culture now showing CRE in this patient with no fever or elevated white count, could be more likely colonizer rather than true infection; hence, recommend discontinue meropenem and no need for antibiotic therapy for the positive urine culture. 2. Clostridium difficile colitis. Diarrhea improved with oral vancomycin to continue for 10 days to finish a course of therapy. Continue supportive care. MMODL / IJN: [id number] /
[2020-06-24 05:28] LABS: Glucose,Whole Blood 206 mg/dL (75-99)
[2020-06-24 06:53] LABS: Anisocytosis Slight; Basophils % (A) 0 %; Eosinophils # (A) 0.1 k/uL (0-0.7); Eosinophils % (A) 1 %; HCT 30.3 % (34.0-46.0); HGB 8.8 gm/dL (11.4-16.0); Hypochromasia Marked; Lymphocytes # (A) 2.1 k/uL (1.0-4.8); Lymphocytes % (A) 21 %; MCH 22.8 pg (25.0-35.0); MCHC 28.9 g/dL (31.0-37.0); Mean Platelet Volume 8.8; Microcytosis Slight; Monocytes # (A) 0.8 k/uL (0-1.0); Monocytes % (A) 8 %; Neutrophils # (A) 7.1 k/uL (1.3-7.7); Neutrophils % (A) 68 %; Platelet Count 164 k/uL (150-450); Poikilocytosis Marked; RBC 3.83 m/uL (3.80-5.40); RDW 19.1 % (11.5-15.5); WBC 10.4 k/uL (3.8-10.6)
[2020-06-24 07:40] LABS: Poikilocytosis (M) Present; Polychromasia Present
[2020-06-24 07:58] VITALS: TEMP 98.1
[2020-06-24] MEDS: acetaZOLAMIDE 250 MG TAB PO SCH (08:31)
[2020-06-24] MEDS: PANTOPRAZOLE 40 MG/10 ML VIAL IVP SCH (08:31)
[2020-06-24] MEDS: FUROSEMIDE 20 MG TAB PEG/G-TUBE SCH (08:31)
[2020-06-24] MEDS: predniSONE 20 MG TAB PO SCH (08:31)
[2020-06-24] MEDS: VANCOMYCIN ORAL SOLUTION 250 MG/5 ML BOTTLE PEG/G-TUBE SCH ×2 (08:31→13:58)
[2020-06-24] MEDS: METOPROLOL TARTRATE 50 MG TAB PEG/G-TUBE SCH (08:31)
[2020-06-24] MEDS: CYANOCOBALAMIN 500 MCG TAB PEG/G-TUBE SCH (08:32)
[2020-06-24] MEDS: ASPIRIN 81 MG PO SCH (08:32)
[2020-06-24] MEDS: INSULIN DETEMIR (LEVEMIR) 100 UNIT/ML SYR SQ SCH (08:32)
[2020-06-24] MEDS: lisinopriL 20 MG TAB PEG/G-TUBE SCH (08:38)
[2020-06-24] MEDS: IPRATROPIUM-ALBUTEROL 3 ML NEB INHALATION SCH ×3 (08:44→16:09)
[2020-06-24] MEDS ORDERED: medroxyPROGESTERone 10 MG TABLET PO SCH (09:00)
--- NOTE | 2020-06-24 11:01 | P.PN ---
Subjective Progress Note Date: 06/24/20 CHIEF COMPLAINT: Possible GI bleed HISTORY OF PRESENT ILLNESS: Patient is being followed for possible GI bleed. Patient had multiple liquidy stools last night. No blood reported in stool. She is being treated for C. diff and possible UTI. She is afebrile. WBC is 10.4 hemoglobin 8.8. She is tolerating her tube feeds. PHYSICAL EXAM: VITAL SIGNS: Reviewed. GENERAL: Well-developed in no acute distress. HEENT: No sclera icterus. Extraocular movements grossly intact. Moist buccal mucosa. Head is atraumatic, normocephalic. ABDOMEN: Soft. Nondistended. Nontender. PEG tube site clean dry and intact NEUROLOGIC: Alert and oriented. Cranial nerves II through XII grossly intact. ASSESSMENT: 1. Anemia with possible GI bleed 2. C. diff colitis PLAN: -Continue to monitor hemoglobin -Continue to monitor patient closely. No plans for endoscopies at this time -Continue tube feeding -Continue supportive care Physician Porter Head note has been reviewed by physician. Signing provider agrees with the documented findings, assessment, and plan of care. Objective - Vital Signs Vital signs: Vital Signs Temp 98.1 F 06/24/20 07:01 Pulse 68 06/24/20 08:54 Resp 17 06/24/20 07:01 BP 133/93 06/24/20 07:01 Pulse Ox 97 06/24/20 07:01 Intake & Output 06/23/20 06/24/20 06/24/20 18:59 06:59 18:59 Intake Total 690 200 Output Total 1300 Balance -1300 690 200 Weight 120.8 kg Intake: IV 600 Sodium Chloride 0.9% 1, 600 000 ml @ 75 mls/hr IV . [id number] [facility] Rx#:[id number] Tube Feeding 200 Other 90 Output: Urine 1300 Other: Voiding Method Indwelling Catheter Indwelling Catheter Indwelling Catheter # Bowel Movements 1 - Labs CBC & Chem 7: 06/24/20 06:21 06/22/20 07:09 Labs: Abnormal Lab Results - Last 24 Hours (Table) 06/23/20 06/23/20 06/24/20 Range/Units 11:58 18:00 00:01 Hgb (11.4-16.0) gm/dL Hct (34.0-46.0) % MCV (80.0-100.0) fL MCH (25.0-35.0) pg MCHC (31.0-37.0) g/dL RDW (11.5-15.5) % POC Glucose (mg/dL) 231 H 359 H 375 H (75-99) mg/dL 06/24/20 06/24/20 Range/Units 05:27 06:21 Hgb 8.8 L (11.4-16.0) gm/dL Hct 30.3 L (34.0-46.0) % MCV 79.0 L (80.0-100.0) fL MCH 22.8 L (25.0-35.0) pg MCHC 28.9 L (31.0-37.0) g/dL RDW 19.1 H (11.5-15.5) % POC Glucose (mg/dL) 206 H (75-99) mg/dL Microbiology - Last 24 Hours (Table) 06/21/20 17:13 Urine Culture - Preliminary Urine,Voided Pseudomonas aeruginosa
[2020-06-24 11:40] LABS: Glucose,Whole Blood 127 mg/dL (75-99)
[2020-06-24] MEDS: SODIUM CHLORIDE 0.9% 1,000 ML IV SCH (12:14)
[2020-06-24] MEDS: ATORVASTATIN 40 MG TAB PEG/G-TUBE SCH (13:58)
--- NOTE | 2020-06-24 14:38 | P.DS ---
Providers Date of admission: 06/16/20 23:09 Expected date of discharge: 06/24/20 Attending physician: Hieu Chaudhary Consults: 06/16/20 23:10 Consult Physician Urgent Consulting Provider: Twin Pan Consult Reason/Comments: cva Do you want consulting provider notified?: Yes Consult Physician Urgent Consulting Provider: Claudio Chambers Consult Reason/Comments: copd, BiPAP, respiratory Do you want consulting provider notified?: Yes 06/19/20 13:11 Consult Physician Urgent Consulting Provider: Jeromy Steele Consult Reason/Comments: R/O GI BLEED Do you want consulting provider notified?: Yes 06/21/20 11:06 Consult Physician Routine Consulting Provider: Jair Hays Consult Reason/Comments: ESBL UTI Do you want consulting provider notified?: Yes Primary care physician: [facility] Course: interval history: This is a pleasant 69 years old female with past medical history of stroke since 2017 with dysphagia status post PEG tube. Other medical problems including atrial fibrillation, DVT, GERD, hyperlipidemia, hypertension. Presents because of altered mental status and low-grade fever. Patient could not provide information and were obtained from the chart. As per documentation was presented because of altered mental status with Schiller respiration and there was concerns for aspiration. He came from [facility]. Patient does not follow, and currently. He had a temperature of 100.0 upon admission. He was also hypoxic 88% on 4 L oxygen dependent and a cannula, came up to 99% on 10 L Labs showing mild leukocytosis of 12.8, hemoglobin is 8.0, platelet is normal. INR is 1.1, ABG showing low pH of 7.2 and high pCO2 of 89 and bicarb of 38, oxygen is 296. Potassium slightly elevated at 5.6, creatinine is normal 0.65. Liver enzymes not elevated. Troponin is negative less than 0.012. C-reactive protein is slightly elevated at 19, lactate dehydrogenase is normal at 453. ProBNP is 2730. Urinalysis is suspicious for infection. Urinary tract screen is negative Coronal virus not detected EKG showed normal sinus rhythm at [address]-T changes CT of the brain: Bilateral old infarcts in the right and left parietal lobes and the right occipital lobe. Right parietal infarct not change compared to old exam. The other infarcts appear new. Cerebral atrophy Patient already has been evaluated by neurologist recommended cardiology evaluation for possible cardioembolic source In the emergency room patient was started on ceftriaxone, Solu-Medrol 60 mg and he received 2 L of normal saline and then continued at 100 mL per hour. Also he was started on BiPAP there was concern for anemia with a low hemoglobin at 8.0. 06/18/2020 Patient still nonverbal she opens eyes to verbal and tactile stimuli but she does not follow command. She still needed and BiPAP this morning. She still have altered mental status EEG showing moderate to severe encephalopathy but no epileptiform discharge. Carotid duplex showing bilateral carotid artery stenosis about 50-69%. Echocardiogram showing ejection fraction of 65-70% with LV wall hypokinesia. Urine culture is growing gram-negative bacilli and currently she is on meropenem for possible ESBL Eliquis is still on hold because of possible GI bleed and significant anemia. Anemia workup still undergoing, occult blood in stool is pending. Cardiology and neurology on the case for her altered mental status and multiple strokes to rule out cardiac source of emboli. Covid test is negative I discussed the case with her daughter miss PURVIS at [phone]. 06/19/2020 Patient is awake and alert today, she opens eyes spontaneously, she couldn't tell the name, surgical felt that she isn't [facility] and answer other questions appropriately, she follows commands. Breathing is easier today. Generally she feels good. She denies chest pain or abdominal pain she has 1+ leg edema. Blood pressure is 170/70, rest of Vitas looks stable. Sugar is slightly elevated. She was on Levemir 44 units and Januvia 100 mg of metformin 1000 mg twice a day, also she is currently on steroids. We are going to resume her insulin and monitor closely. Urine is going ESBL E. coli which is sensitive to meropenem. Eliquis is still on hold for possible GI bleed, surgery team were consulted for low hemoglobin. Cardiology team on the case. Check labs today. 06/20/2020 Patient clinically looks same as yesterday, she is awake she can say she is in [facility] however she still not fully oriented to the surrounding. She follows some commands but not every single one. She does not have respiratory distress and her hemodynamics are stable. Her urine culture is going ESBL E. coli and she is on appropriate antibiotics with me upon them. Surgeon input is appreciated and they recommended EGD/colonoscopy to rule out GI bleed. Because of her anemia her Eliquis is on hold for now. Hemoglobin is slightly trending up today to 8.6. WBC is back to normal patient can be transferred from the select unit to the general medical floor 06/21/2020 This is a pleasant 69 y old female who was originally admitted for altered mental status secondary to hypercapnic respiratory failure thought secondary to possible obstructive sleep apnea with some elements of obesity hypoventilation syndrome, exacerbated by her ESBL E. coli UTI, patient improved with BiPAP thera py and now she is fully awake, she knows in the hospital and almost she is at baseline mental status. She is on meropenem. Infectious disease been consulted. As part of altered Percocet workup neurologist has been consulted and imaging showed multiple strokes with recommendation to rule out cardiac embolic source concrete engineer has been consulted. Patient is already on liquids which is placed on hold for consult for GI bleed. Patient may need endoscopy by surgery team uncertain time this week. Covid test is negative. CT of the neck is negative. Currently patient also on Solu-Medrol 40 mg and gentle hydration, sugar is on the high side and Levemir increased to 50 units Also today she has a job and red cell count to 16 K, with large soft to loose bowel movement with blood suspected as well. C. diff and occult blood in stool is requested Overall the prognosis is guarded June 22: Propped up in bed. Follows simple commands. Getting tube feeding. Getting fluids and antibiotics. June 23: Laying in bed. Comfortable. Getting 2 feedings. June 24: Laying in bed. Comfortable. Tolerating tube feedings. Consultations: Dr. Chew from ID Dr. Pan from neurology Dr. Chambers and partners from pulmonary Dr. Steele from general surgery [facility] On examination: VITAL SIGNS: 98.1, 72, 17, 133.93, 97% room air GENERAL APPEARANCE: Propped up in bed, tired HEENT: Normal external appearance of nose and ear. Oral cavity -dry mucous membranesl EYES: Pupils equal. Conjunctiva normal. NECK: JVD unable to assess. Mass not palpable. RESPIRATORY: Respiratory effort increased. Lungs decreased breath sounds CARDIOVASCULAR: distant heart sounds. No edema. ABDOMEN: Soft. Liver and spleen not palpable. No tenderness. No mass palpable. PEG tube feeding PSYCHIATRY: Occasionally speaks of word NEUROLOGICAL: Weakness of the right-sided limbs INVESTIGATIONS, reviewed in the clinical context: White count 10.4 hemoglobin 8.8 platelets 164 Urine culture-E. coli/ESBL from June 16 Urine culture-Pseudomonas aeruginosa from June [address]-no significant stenosis EEG-showing evidence of moderate to severe encephalopathy. Carotid Frvfdjd-71-58% bilateral ICA stenosis 2-D echocardiogram-EF 65-70%. With some hypokinetic chacko. And LVH Computed tomography scan brain-lateral or infarction the right and left parietal lobes and right occipital lobe. assessment: Acute hypoxic, hypercapnic respiratory failure, improved Possible obstructive sleep apnea with some elements of COPD exacerbation and obesity hypoventilation syndrome Metabolic encephalopathy secondary to above, improved Acute urinary tract infection, secondary to ESBL E. coli-repeat cultures growing Pseudomonas-completed course of ertapenem Hypochromic microcytic Anemia, -being followed by Dr. Steele. Manage conservatively. No endoscopy. Eliquis to be resumed. Multiple old strokes. some possibly cardioembolic per neurology. history of stroke since 2017 with dysphagia status post PEG tube Hypertension Hyperlipidemia Diabetes mellitus History of paroxysmal atrial fibrillation, eliquis resumed C. diff colitis Disposition: [facility] Patient Condition at Discharge: Stable Plan - Discharge Summary Discharge Rx Participant: No New Discharge Prescriptions: New Ipratropium-Albuterol Nebulize [Duoneb 0.5 mg-3 mg/3 ml Soln] 3 ml INHALATION TID ml Atorvastatin [Lipitor] 40 mg PEG/G-TUBE DAILY@1400 tab medroxyPROGESTERone [Provera] 20 mg PO DAILY tablet Vancomycin Oral Solution 125 mg PEG/G-TUBE QID 10 Days ml predniSONE 0 mg PO DIRECTED #13 tab Cyanocobalamin [Vitamin B-12] 500 mcg PEG/G-TUBE DAILY tab Aspirin 81 mg PO DAILY chew Famotidine [Pepcid] 20 mg PO BID #1 tablet Continue Magnesium Hydroxide [Milk of Magnesia] 2,400 ml PEG/G-TUBE DAILY PRN PRN Reason: Constipation Apixaban [Eliquis] 5 mg PEG/G-TUBE BID lisinopriL [Prinivil] 20 mg PEG/G-TUBE DAILY Nitroglycerin Sl Tabs [Nitrostat] 0.4 mg SUBLINGUAL Q5M PRN tab PRN Reason: Chest Pain Metoprolol Tartrate [Lopressor] 50 mg PEG/G-TUBE BID Furosemide [Lasix] 20 mg PEG/G-TUBE DAILY metFORMIN HCL 1,000 mg PEG/G-TUBE BID Famotidine [Pepcid] 20 mg PEG/G-TUBE DAILY@1400 Cholecalciferol [Vitamin D3 (25 Mcg = 1000 Iu)] 4,000 unit PO DAILY@1400 Multivitamin with Iron [Multivitamins with Iron] 1 tab PEG/G-TUBE DAILY@1400 Insulin Detemir [Levemir Flextouch] 48 units PEG/G-TUBE DAILY@1400 Discontinued Simvastatin [Zocor] 10 mg PEG/G-TUBE DAILY@1400 Insulin Detemir [Levemir Flextouch] 44 units SQ DAILY sitaGLIPtin [Januvia] 100 mg PEG/G-TUBE DAILY Lactobacillus Acidophilus [Acidophilus] 1 tab PEG/G-TUBE DAILY Discharge Medication List Magnesium Hydroxide [Milk of Magnesia] 2,400 ml PEG/G-TUBE DAILY PRN 03/02/17 [History] Apixaban [Eliquis] 5 mg PEG/G-TUBE BID 03/23/17 [History] lisinopriL [Prinivil] 20 mg PEG/G-TUBE DAILY 04/06/17 [History] Nitroglycerin Sl Tabs [Nitrostat] 0.4 mg SUBLINGUAL Q5M PRN tab 04/13/17 [Rx] Cholecalciferol [Vitamin D3 (25 Mcg = 1000 Iu)] 4,000 unit PO DAILY@1400 07/26/18 [History] Famotidine [Pepcid] 20 mg PEG/G-TUBE DAILY@1400 07/26/18 [History] Furosemide [Lasix] 20 mg PEG/G-TUBE DAILY 07/26/18 [History] Metoprolol Tartrate [Lopressor] 50 mg PEG/G-TUBE BID 07/26/18 [History] metFORMIN HCL 1,000 mg PEG/G-TUBE BID 07/26/18 [History] Insulin Detemir [Levemir Flextouch] 48 units PEG/G-TUBE DAILY@1400 06/16/20 [History] Multivitamin with Iron [Multivitamins with Iron] 1 tab PEG/G-TUBE DAILY@1400 06/16/20 [History] Aspirin 81 mg PO DAILY chew 12/02/20 [Rx] Atorvastatin [Lipitor] 40 mg PEG/G-TUBE DAILY@1400 tab 06/24/20 [Rx] Cyanocobalamin [Vitamin B-12] 500 mcg PEG/G-TUBE DAILY tab 06/24/20 [Rx] Famotidine [Pepcid] 20 mg PO BID #1 tablet 06/24/20 [Rx] Ipratropium-Albuterol Nebulize [Duoneb 0.5 mg-3 mg/3 ml Soln] 3 ml INHALATION TID ml 06/24/20 [Rx] Vancomycin Oral Solution 125 mg PEG/G-TUBE QID 10 Days ml 06/24/20 [Rx] medroxyPROGESTERone [Provera] 20 mg PO DAILY tablet 06/24/20 [Rx] predniSONE 0 mg PO DIRECTED #13 tab 06/24/20 [Rx] Follow up Appointment(s)/Referral(s): Orion Martinez DO [Primary Care Provider] - 1-2 days
[2020-06-24 15:00] VITALS: BP 94/55; RESP 18
--- NOTE | 2020-06-24 16:01 | P.PN ---
Subjective Progress Note Date: 06/24/20 Principal diagnosis: Altered mental status, acute on chronic hypoxic and hypercapnic respiratory failure 69-year-old white female patient with multiple chronic medical conditions, including atrial fibrillation, previous history of CVA with right-sided hemiplegia, dysphagia, status post PEG tube placement in 2017, diabetes mellitus, hypertension, hyperlipidemia, morbid obesity, difficulty with mobility, patient is [place], she has a legal guardian, and were told that she is nonverbal at her baseline. Patient was brought into the emergency department on 06/16/2020 for evaluation of altered mental status. Apparently there was a concern for possible aspiration. Patient was febrile on presentation with a temp of 100F, she was hypoxic with a pulse ox of 88% on 4 L. Lab work revealed leukocytosis with a white count of 12.8, hemoglobin was 8, troponin was negative at less than 0.012, proBNP was 2730, urinalysis was suspicious for infection. Coronavirus rapid screen was negative. Chest x-ray revealed cardiomegaly, mild pleural reaction at the right lung base, some coarsening of the lung markings. Left axillary pacemaker was noted. Was a slight blunting of the right costophrenic angle. Brain CT showed bilateral old infarcts in the right and left parietal lobes and right occipital lobe. There was cerebral atrophy. EKG showed normal sinus rhythm with sinus arrhythmia with evidence of septal infarct of undetermined age. She was quite lethargic, blood gas revealed pO2 of 296, pCO2 of 89, and pH of 7.23, this was done on 100% FiO2. Patient is placed on AVAPS, currently with FiO2 of 35%. She was started on Rocephin for possibility of urinary tract infection, she is on IV steroids, she was fluid resuscitated for possibility of urinary tract infection with sepsis. Urine drug screen was negative. Patient continued to have altered mentation, neurology evaluation was completed, please refer to their consultation. Echocardiogram showed moderate concentric LVH, EF between 65-70%, mild TR, mild pulmonary hypertension, with right-sided pressures of 42 mmHg. Carotid Doppler completed showing suboptimal evaluation due to large body habitus, patient condition and tortuous internal carotid arteries. Increased flow parameters on the bilateral internal carotid artery suggested 50-69% stenosis. Today patient was seen by us for the first time in evaluation and she is stuporous, remains on AVAPS mode of an NIPPV ventilation. She was switched over to BiPAP mode of ventilation with pressures of 14 and 5 and FiO2 of 35%, repeat blood gas was ordered, and within about 5-10 minutes she is already starting to become more responsive. She is achieving pressures of 350-400 mL, minute ventilation of 5-6 L/m, with a respiratory rate of 17, patient is starting to open eyes. The patient is seen today 06/18/2020 in follow-up on the selective care unit. She is more awake and alert today. She is nonverbal. Difficult to assess her overall mental status. She is maintaining good O2 saturations on 4 L nasal cannula at 97%. She's been afebrile. Hemodynamically stable. She did utilize BiPAP last evening. Urine culture is positive for gram-negative bacilli. Blood culture reveals no growth to date. White count 11.2. Hemoglobin 7.8. Sodium 141. Potassium 5.5. Creatinine 0.45. Currently on antibiotics in the form of meropenem. Remains on bronchodilators and IV Solu-Medrol. 0.9 normal saline at 75 ML's per hour. The patient is seen today 06/19/2020 in follow-up on the selective care unit. She is currently awake. She is answering some yes and no questions. She is more vocal today compared to yesterday. He is now maintaining O2 saturations up to 100% on 2 L/m per nasal cannula. She's afebrile. Urine culture positive for ESBL, E. coli. Blood glucose 249. She remains on meropenem. Continued on bronchodilators and IV Solu-Medrol. The patient is seen today 06/20/2020 in follow-up on the selective care unit. She is currently resting comfortably in bed. Awake and alert in no acute distress. Answering some yes no questions. Maintaining O2 saturations in the mid 90s on room air. White count 6.8. Hemoglobin 8.6. Sodium 142. Potassium 4.6. Creatinine 0.42. Patient is seen today 06/24/2020 in follow-up on the regular medical floor. She is currently resting comfortably in bed. She is answering yes and no questions. Obtain O2 saturation in the mid 90s on room air. She's been afebrile. Urine culture was positive for E. coli and Pseudomonas. White count 10.4. Hemoglobin 8.8. She is currently on vancomycin. Objective - Vital Signs Vital signs: Vital Signs Temp 98.1 F 06/24/20 13:19 Pulse 74 06/24/20 13:19 Resp 18 06/24/20 13:19 BP 94/55 06/24/20 13:19 Pulse Ox 97 06/24/20 13:19 Intake & Output 06/23/20 06/24/20 06/24/20 18:59 06:59 18:59 Intake Total 690 200 Output Total 1300 Balance -1300 690 200 Weight 120.8 kg Intake: IV 600 Sodium Chloride 0.9% 1, 600 000 ml @ 75 mls/hr IV . [id number] BONNY Rx#:[id number] Tube Feeding 200 Other 90 Output: Urine 1300 Other: Voiding Method Indwelling Catheter Indwelling Catheter Indwelling Catheter # Bowel Movements 1 - Exam GENERAL EXAM: Awake, alert, answering brief yes no questions, 69-year-old morbidly obese female patient, on room air with O2 saturations in the mid 90s HEAD: Normocephalic/atraumatic. EYES: Normal reaction of pupils, equal size. Conjunctiva pink, sclera white. NOSE: Clear with pink turbinates. THROAT: No erythema or exudates. NECK: No masses, no JVD, no thyroid enlargement, no adenopathy. CHEST: No chest wall deformity. Symmetrical expansion. LUNGS: Equal air entry with no crackles, wheeze, rhonchi or dullness. CVS: Regular rate and rhythm, normal S1 and S2, no gallops, no murmurs, no rubs ABDOMEN: Soft, nontender. No hepatosplenomegaly, normal bowel sounds, no guarding or rigidity. PEG tube in place EXTREMITIES: No clubbing, no edema, no cyanosis, 2+ pulses and upper and lower extremities. MUSCULOSKELETAL: Residual right-sided weakness from previous CVA. SPINE: No scoliosis or deformity SKIN: No rashes CENTRAL NERVOUS SYSTEM: History of multiple CVAs with residual right-sided w eakness, Nonverbal. - Labs CBC & Chem 7: 06/24/20 06:21 06/22/20 07:09 Labs: Abnormal Lab Results - Last 24 Hours (Table) 06/23/20 06/24/20 06/24/20 Range/Units 18:00 00:01 05:27 Hgb (11.4-16.0) gm/dL Hct (34.0-46.0) % MCV (80.0-100.0) fL MCH (25.0-35.0) pg MCHC (31.0-37.0) g/dL RDW (11.5-15.5) % POC Glucose (mg/dL) 359 H 375 H 206 H (75-99) mg/dL 06/24/20 06/24/20 Range/Units 06:21 11:38 Hgb 8.8 L (11.4-16.0) gm/dL Hct 30.3 L (34.0-46.0) % MCV 79.0 L (80.0-100.0) fL MCH 22.8 L (25.0-35.0) pg MCHC 28.9 L (31.0-37.0) g/dL RDW 19.1 H (11.5-15.5) % POC Glucose (mg/dL) 127 H (75-99) mg/dL Microbiology - Last 24 Hours (Table) 06/21/20 17:13 Urine Culture - Preliminary Urine,Voided Pseudomonas aeruginosa Assessment and Plan Assessment: 1 Acute on chronic hypercapnic respiratory failure related to sepsis from urinary tract infection, UTI secondary to E. coli and Pseudomonas 2 Chronic hypercapnic respiratory failure related to obesity hypoventilation syndrome, possibility of obstructive sleep apnea 3 History of multiple old strokes, and bilateral parietal and right occipital, with history of right-sided weakness, dysphagia, and aphasia 4 History of dysphagia, status post PEG tube placement 5 Patient is nonverbal and bedbound, and is a resident of a local [facility]. 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 Pan She is more awake and alert today, more vocal She had been initiated on Diamox and Provera Maintaining good O2 saturations in the 90s on room air Cleared for transfer to the F once cleared medically I, the cosigning physician, performed a history & physical examination of the patient. Lungs sounds are clear but diminished. Maintaining good O2 saturations in the 90s on room air. I discussed the assessment and plan of care with my nurse practitioner, Cecille Caraballo. I attest to the above note as dictated by her.
[2020-06-24 16:21] VITALS: PULSE 72
--- NOTE | 2020-06-24 16:22 | PN ---
PROGRESS NOTE DATE OF SERVICE: 06/24/2020 REASON FOR FOLLOWUP: 1. Positive urine culture, possible colonization. 2. C difficile colitis. INTERVAL HISTORY: The patient is currently afebrile. The patient remains to be slightly lethargic but did open eyes to her name. Did not answer any questions. No vomiting or any has been noticed. PHYSICAL EXAMINATION: Blood pressure 123/93 with a pulse of 72, temperature 98.1, she is 97% on room air. General description is an elderly female lying in bed in no distress. Respiratory system: Unlabored breathing clear to auscultation anteriorly. Heart S1, S2. Regular rate and rhythm. Abdomen is soft. No tenderness. LAB: Hemoglobin 8.8, white count 10.4. IMPRESSION/PLAN: 1. Patient with positive urine culture with multiresistant Pseudomonas, possible colonization. The patient improved without getting treatment for the same. No need for antibiotic. 2. Clostridium difficile colitis. To finish a 10 day course of oral vancomycin. Continue supportive care. MMODL / IJN: [id number] /
[2020-06-24 16:37] LABS: Glucose,Whole Blood 234 mg/dL (75-99)
--- NOTE | 2020-06-26 01:25 | CDI ---
Documentation Clarification Form Date: 06/26/2020 From: Johnny Petersen Phone: If you have a question about this query, please contact Pati Reddy [employer] Consultant at [phone] between 8am and 5pm. Admit Date: 06/16/2020 Discharge Date: 06/24/2020 Patient Name: Nola Escobar Visit Number: [id number] ATTENTION: The Clinical Documentation Specialists (CDI) and [facility] Coding Staff appreciate your assistance in clarifying documentation. Please respond to the clarification below the line at the bottom and electronically sign. The CDI & [facility] Coding staff will review the response and follow-up if needed. Please note: Queries are made part of the Legal Health Record. If you have any questions, please contact the author of this message via ITS. Dear Hieu Peterson MD., A diagnosis of UTI has been documented in entire documentation History/Risk Factors: Sepsis, Epstein catheter, Toxic Encephalopathy,obesity Per documentation She was also noted to have a positive UA, however the patient did have a chronic indwelling Epstein catheter that has not been changed on this admission. patient was admitted with an indwelling Epstein catheter. Clinical Indicators:Acute on chronic hypercapnic respiratory failure related to sepsis from urinary tract infection, UTI secondary to E. coli and Pseudomonas Urinalysis: Positive UA Urine culture:E. coli and Pseudomonas Treatment: Currently on antibiotics in the form of meropenem. 06/21 consult note stated "she was also noted to have a positive UA, however the patient did have a chronic indwelling Epstein catheter that has not been changed on this admission". In your professional opinion, can you please clarify the etiology of the UTI, if known? Related to Epstein catheter UTI not related to catheter. Other condition, please specify Unable to determine Acute UTI with cystitis related to Epstein catheter MTDD
== END 2020-06-24 19:00 | DRG 698 ==
LOC: EC 20:35 → 3SCARD 23:09 → 4SSUR 06-21 21:04
PROVIDERS: ADMIT Hospitalist; ATTEND Hospitalist
PROC: 5A09557 Assistance with Respiratory Ventilation, Greater than 96 Consecutive Hours, Continuous Positive Airway Pressure (ICD-10-PCS; principal; 2020-06-16)
DX: T83.511A Infection and inflammatory reaction due to indwelling urethral catheter, initial encounter (principal); A41.51 Sepsis due to Escherichia coli [E. coli]; J96.21 Acute and chronic respiratory failure with hypoxia; J96.22 Acute and chronic respiratory failure with hypercapnia; G92 Toxic encephalopathy; E66.2 Morbid (severe) obesity with alveolar hypoventilation; J44.1 Chronic obstructive pulmonary disease with (acute) exacerbation; A04.72 Enterocolitis due to Clostridium difficile, not specified as recurrent; I69.351 Hemiplegia and hemiparesis following cerebral infarction affecting right dominant side; E87.2 Acidosis; R47.01 Aphasia; N39.0 Urinary tract infection, site not specified; E78.5 Hyperlipidemia, unspecified; I27.20 Pulmonary hypertension, unspecified; H54.61 Unqualified visual loss, right eye, normal vision left eye; I10 Essential (primary) hypertension; I48.0 Paroxysmal atrial fibrillation; K21.9 Gastro-esophageal reflux disease without esophagitis; Z20.828 Contact with and (suspected) exposure to other viral communicable diseases; R13.10 Dysphagia, unspecified; E11.65 Type 2 diabetes mellitus with hyperglycemia; D50.9 Iron deficiency anemia, unspecified; R29.810 Facial weakness; B96.5 Pseudomonas (aeruginosa) (mallei) (pseudomallei) as the cause of diseases classified elsewhere; I65.23 Occlusion and stenosis of bilateral carotid arteries; E11.319 Type 2 diabetes mellitus with unspecified diabetic retinopathy without macular edema; Z79.01 Long term (current) use of anticoagulants; Z79.4 Long term (current) use of insulin; Z79.82 Long term (current) use of aspirin; Z79.899 Other long term (current) drug therapy; Z86.718 Personal history of other venous thrombosis and embolism; Z87.440 Personal history of urinary (tract) infections; Z83.3 Family history of diabetes mellitus; Z95.0 Presence of cardiac pacemaker; Z98.1 Arthrodesis status; Z93.1 Gastrostomy status; Z74.01 Bed confinement status; Z90.49 Acquired absence of other specified parts of digestive tract; Z98.891 History of uterine scar from previous surgery; Z98.51 Tubal ligation status
CPT/HCPCS: 36415; 36600; 70450; 70498; 71045; 80048; 80053; 80061; 80306; 81001; 82272; 82306; 82607; 82728; 82747; 82805; 83036; 83540; 83550; 83605; 83615; 83880; 84443; 84484; 85025; 85027; 85610; 85730; 86140; 87040; 87077; 87086; 87186; 87324; 87635; 93005; 93306; 93880; 94640; 94660; 94760; 95816; 96361; 96365; 96366; 96375; 96376; 99291